=== PATIENT | male | born 1965 | race Caucasian/White ===

== ENCOUNTER 2020-09-14 10:44 | Emergency (ER) | payer MEDICAID, SELFPAY ==
--- NOTE | 2020-09-14 11:06 | ED.ABDPAIN ---
HPI - Abdominal Pain General Chief Complaint: Abdominal Pain Stated Complaint: abdominal pain Time Seen by Provider: 09/14/20 11:06 Source: patient Mode of arrival: ambulatory Limitations: no limitations History of Present Illness MD elicited complaint: abdominal pain Pertinent past history: gastritis and other (pancreatitis) Onset (ago): month(s) (few) Pain Consistency: constant Location: epigastric Severity: moderate Quality: aching and fullness Radiation: none Migration to: no migration Exacerbating factors: eating (states something gets stuck and he can't eat) Relieving factors: nothing Associated symptoms: other (weight loss) Related Data Previous Rx's Medication Instructions Recorded metoclopramide HCl [Reglan] 5 mg PO DAILY #30 tab 09/14/20 Allergies Allergy/AdvReac Type Severity Reaction Status Date / Time divalproex sodium Allergy Unknown UNKNOWN Unverified 07/25/20 15:12 [From Depakote] ibuprofen [From Motrin] Allergy Unknown RASH Unverified 07/25/20 15:12 latex [Latex] Allergy Unknown DIFFICULTY Unverified 07/25/20 15:12 BREATHING oxazepam [From Serax] Allergy Unknown UNKNOWN Unverified 07/25/20 15:12 penicillin V Allergy Unknown Verified 09/26/13 00:00 Penicillins Allergy Unknown RASH Unverified 07/25/20 15:12 zolpidem [From Ambien] Allergy Unknown UNKNOWN Unverified 07/25/20 15:12 acetaminophen [From TYLENOL] AdvReac Severe NAUSEA & Unverified 07/25/20 15:12 VOMITING mirtazapine [From Remeron] AdvReac Unknown GI UPSET Unverified 07/25/20 15:12 From PROZAC Allergy Unknown UNKNOWN Uncoded 07/25/20 15:12 Review of Systems Review of Systems Constitutional : pos Weight loss (unsure how much), No Fever, No Chills ENT/Mouth : No sore throat, No Rhinorrhea Eyes: No Swelling, No Redness Cardiovascular : No Chest Pain, No SOB, NoEdema Respiratory : No Cough, No Sputum, No Wheezing Gastrointestinal : Positive Nausea, no Vomiting, no Diarrhea, positive abdominal Pain, No Hematochezia, No Melena Genitourinary : No Dysuria, No Urinary Frequency, No Hematuria, No Urgency Musculoskeletal : No joint pain, No Myalgias, No Joint Swelling Skin : No Skin Lesions, No rash Neuro : No Weakness, No Numbness, No Dizziness, No Headache Psych : No Anxiety/Panic, No Depression Heme/Lymph: No Bruising, No Lymphadenopathy Endocrine : No Polyuria, No Polydipsia All other systems reviewed and are negative. Physical Exam Vital Signs: Vital Signs: Last Vital Signs Temp 98.5 F 09/14/20 11:09 Pulse 96 09/14/20 11:09 Resp 18 09/14/20 11:09 BP 168/87 H 09/14/20 11:09 Pulse Ox 99 09/14/20 11:16 Body Mass Index 22.0 Appearance: Alert. Oriented X3. No acute distress. Eyes: Pupils equal, round and reactive to light. ENT: Pharynx normal. Neck: Normal inspection. Neck supple. CVS: Normal heart rate and rhythm. Pulses normal. Respiratory: No respiratory distress. Breath sounds normal. Abdomen: Soft and nontender. Skin: Skin warm and dry. Normal skin color. Normal skin turgor. Extremities: No lower extremity edema. No calf ttp Neuro: Oriented X 3. No motor deficit. No sensory deficit. Course Course Course Narrative: patient refusing further lab draws or IV sticks, aware we want to get labs, CT scan, states he just wants medications and has endoscopy for Wednesday MDM - Abdominal Pain MDM Narrative Medical decision making narrative: 55 yo male with hx of gastritis, IDDM, pancreatitis, recovered from ETOH - reports upper abdominal pain, early satiety and reported weight loss, at this time will need labs, CT scan for mass, possible mass vs gastroparesis, IV reglan ordered, dispo per results and findings. Discharge Plan Discharge Clinical Impression: Nausea, Early satiety Patient Disposition: Home, Self-Care Instructions: Acute Nausea and Vomiting (ED) Additional Instructions: return to ED for any worsening symptoms or concerns you were offered labs, IV access, CT scan but declined due to difficult IV access, return if you change your mind Prescriptions: New metoclopramide HCl [Reglan] 5 mg tablet 5 mg PO DAILY Qty: 30 RF: 0 [facility]: [facility] [Primary Care Provider[facility] - 2 days PMF Past Medical History Attestation statement: The following information was validated with the patient. Source: old records reviewed Medical History Alcoholism Depressed Diabetes Gastritis GIB (gastrointestinal bleeding) Head injury HTN (hypertension) Pancreatitis Seizures Social History Social History Smoked in Last 30 Days: No Use of substances other than those prescribed or required for medical reasons: No Advance Directives: No Advance Directives Information Provided: No
[2020-09-14 11:09] VITALS: BP 168/87; PULSE 96; RESP 18; TEMP 36.9; BMI 22.0
[2020-09-14 11:16] VITALS: O2SAT 99
--- NOTE | 2020-09-14 12:01 | PC.NURSE ---
pt difficult stick. 2 rns tried x 2 and unsuccessful. MD offer to placed IJ but patient refused. plan is for patient to go home with PO meds and keep appointment for endoscopy wednesday. pt agreeable with that plan.
== END 2020-09-14 12:18 | disposition home or self-care (01) ==
PROVIDERS: Emergency Provider Emergency Medicine
DX: R10.9 Unspecified abdominal pain (principal); R11.0 Nausea; R68.81 Early satiety; I10 Essential (primary) hypertension; Z79.899 Other long term (current) drug therapy
CPT/HCPCS: 96361; 96374; 96375; 99284

== ENCOUNTER → 2020-09-19 08:51 | Outpatient (BNVA) | payer MEDICAID, SELFPAY | PROVIDERS: PCP Emergency Medicine; Visit Provider Physician Assistant | DX: R13.10 Dysphagia, unspecified (principal); R63.4 Abnormal weight loss; Z68.22 Body mass index [BMI] 22.0-22.9, adult | CPT/HCPCS: 99202 ==

== ENCOUNTER 2020-09-20 06:47 | Day surgery (SDC) | payer MEDICAID, SELFPAY ==
--- NOTE | 2020-09-19 13:31 | P.CONAN_ITS ---
Documented by User: Annita Neal 09/19/20 13:37 HPI - Anesthesia Eval Consult details Narrative: 55yo M for Upper Endoscopy PMFSH Past Medical History Medical History Alcoholism Depressed Diabetes Gastritis GIB (gastrointestinal bleeding) Head injury HTN (hypertension) Odynophagia Pancreatitis Seizures Family History Family History Father Diabetes Surgical History Surgical History History of esophagogastroduodenoscopy (EGD) Social History Social History Are you a primary pediatric care coordinator to a significant other at home: No Do you presently have visiting nurse or other home services: No Alcohol intake: current Alcohol intake frequency: former alcohol drinker Smoking Status: Never smoker Use of substances other than those prescribed or required for medical reasons: No Advance Directives: No Advance Directives Information Provided: No (n/a) Advance Directives on File: No Recently lost weight without trying: Yes Meds Allergies Allergy/AdvReac Type Severity Reaction Status Date / Time No Known Allergies Allergy Verified 09/20/20 07:19 Home Medications Medication Instructions Recorded Confirmed Type naltrexone microspheres 380 mg 380 mg IM Q4W 09/19/20 09/19/20 History intramuscular suspension,extended release Exam Exam Date and Time: September 19, 2020 1331 Pertinent Lab Results Pertinent Lab Results: Laboratory Tests 06/20/20 06/20/20 15:54 18:20 WBC 12.4 H Hgb 12.2 L Hct 37.3 L Sodium 136 Potassium 4.3 Chloride 97 BUN 16 Creatinine 1.03 Assessment and Plan Assessment Anesthesia Assessment: Chart Reviewed Documented by User: Rubi Beckham 09/20/20 07:55 [facility] Past Medical History Medical History Alcoholism Depressed Diabetes Gastritis GIB (gastrointestinal bleeding) Head injury HTN (hypertension) Odynophagia Pancreatitis Seizures Family History Family History Father Diabetes Surgical History Surgical History History of esophagogastroduodenoscopy (EGD) Social History Social History Are you a primary pediatric care coordinator to a significant other at home: No Do you presently have visiting nurse or other home services: No Alcohol intake: current Alcohol intake frequency: former alcohol drinker Smoking Status: Never smoker Use of substances other than those prescribed or required for medical reasons: No Advance Directives: No Advance Directives Information Provided: No (n/a) Advance Directives on File: No Recently lost weight without trying: Yes Meds Allergies Allergy/AdvReac Type Severity Reaction Status Date / Time No Known Allergies Allergy Verified 09/20/20 07:19 Home Medications Medication Instructions Recorded Confirmed Type naltrexone microspheres 380 mg 380 mg IM Q4W 09/19/20 09/19/20 History intramuscular suspension,extended release
[2020-09-20 07:20] VITALS: BMI 22.1
[2020-09-20 07:53] VITALS: BP 142/77; PULSE 77; RESP 16; TEMP 36.6; O2SAT 100
[2020-09-20] MEDS: Lactated Ringers 1,000 ML 100 ML IVCONT (08:14)
--- NOTE | 2020-09-20 09:28 | P.HPSUR_ITS ---
Pre-Procedural Eval Section B Chief Complaint: dysphagia Relevant Family History (Specify if Yes): No Relevant Social History: None Present Medications: see Short Stay Collaborative assessment Medical History: Significant History (HTN, seizures, DM) History of Previous Operations: No relevant previous surgery Allergies: Allergies Allergy/AdvReac Type Severity Reaction Status Date / Time No Known Allergies Allergy Verified 09/20/20 07:19 Review of Systems Sugical H&P ROS: Negative: Constitution, Cardiovascular, Respiratory, Neurological, Psychiatric, Hem-Onc, Allergic/Immunologic, Gastrointestinal, Genitourinary, Musculoskeletal, Integumentary, Endocrine and Eyes/Ears/Nose/Thro at Exam Surgical H&P Exam: Normal: HEENT, Normal: Heart, Normal: Lungs, Normal: Extremities, Normal: Abdomen, Normal: Skin and Normal: Neurological Plan Diagnosis/Plan: Unchanged Patient has been examined and remains a candidate for the planned procedure
--- NOTE | 2020-09-20 09:29 | PM.OP ---
Brief Operative Note Date of Service: 09/20/20 Pre-op diagnosis: dysphagia Post-op diagnosis: same Procedure: see op note Surgeon: Otoniel Muniz MD Anesthesia: MAC Estimated blood loss (mL): 10 Condition: stable Disposition: PACU
--- NOTE | 2020-09-20 09:30 | W.PM.OPN ---
Operative Note Operative Note Date of Service: 09/20/20 Narrative: Procedure Description: EGD FLEXIBLE TRANSORAL UPPER GASTROINTESTINAL ENDOSCOPY UPPER ENDOSCOPY Consent: Indications for the procedure and potential complications of bleeding, perforation, reaction to medications and missed diagnosis were discussed with the patient and informed consent was obtained. Instrument: Olympus GIF H 190 J mid size upper endoscope Monitoring: Vital signs and clinical assessment, continuous EKG monitoring, Pulse oximetry, Carbon Dioxide monitoring and blood pressure monitoring were done throughout the procedure. Procedure: The patient was placed in the left lateral decubitis position and pre-procedure medications were administered and a bite block was placed. The endoscope was inserted into the mouth and advanced under direct vision to the third part of duodenum. A careful inspection was made as the upper endoscope was withdrawn including a retroflexed examination of the proximal stomach; Findings and interventions are described below. Findings: Larynx:normal Esophagus: GE junction at 38 cm, diaphragm hiatus at 40 cm, consistent with 2 cm sliding hiatal hernia, there was a very tight circumferential stricture with effacement of the lower esophageal mucosa at about 36 cm. An ultra slim scope had to be used to bypass this area. A CRE balloon was guided to the area of stricture and dilated sequentiallly from 8-10 mm with some heme and small amount of blood noted. Random esophageal bx then taken Stomach: Patchy gastric erythema with ridged mucosa. Biopsies were obtained. Grade 2 flap valve on retroflexed examination of the cardia. Duodenum: Normal bulb and descending duodenum, Intervention: Biopsies as noted above, dilation Impression/Findings: probable benign peptic stricture vs from EoE gastritis hiatal hernia PLAN: Stay on pureed diet high dose PPI liquid carafate repeat dilation in 4-6 weeks await biopsies
[2020-09-20 09:33] VITALS: BP 106/56; PULSE 86; RESP 16; TEMP 36.1; O2SAT 99
--- NOTE | 2020-09-20 09:42 | HO.POSTANES ---
Post Anesthesia Evaluation Post Anesthesia Evaluation Vital Signs: Vital Signs Temp Pulse Resp BP Pulse Ox 09/20/20 07:53 98 F 77 16 142/77 H 100 Anesthesia: Monitored Mental Status: Awake Pain Control: Satisfactory Nausea/Vomiting: None Hydration: Adequate Anesthesia-Related Issues: No Anes. Related Issues
[2020-09-20 09:49] VITALS: BP 130/75; PULSE 88; RESP 14; TEMP 36.1; O2SAT 100
== END 2020-09-20 10:44 | disposition home or self-care (01) ==
PROVIDERS: Visit Provider Internal Medicine Gastroenterology
PROC: 0DJ08ZZ Inspection of Upper Intestinal Tract, Via Natural or Artificial Opening Endoscopic (ICD-10-PCS; CPT 43235; principal; 2020-09-20 08:30)
DX: K22.2 Esophageal obstruction (principal); K29.50 Unspecified chronic gastritis without bleeding; K44.9 Diaphragmatic hernia without obstruction or gangrene; I10 Essential (primary) hypertension; E11.9 Type 2 diabetes mellitus without complications; Z87.19 Personal history of other diseases of the digestive system; Z79.899 Other long term (current) drug therapy
CPT/HCPCS: 43249; 43239; 88305; 88342; C1726; C1769

== ENCOUNTER → 2020-10-09 08:25 | Outpatient (BNVA) | payer MEDICAID, SELFPAY | PROVIDERS: PCP Emergency Medicine; Visit Provider Physician Assistant | DX: Z76.89 Persons encountering health services in other specified circumstances (principal) ==

== ENCOUNTER 2020-11-08 10:47 | Inpatient (IN) | payer MEDICAID, SELFPAY ==
[2020-11-08 10:56] VITALS: BP 141/81; PULSE 100; RESP 16; TEMP 36.8; O2SAT 100; BMI 19.3
--- NOTE | 2020-11-08 11:03 | ED_ITS ---
HPI - Nausea/Vomiting/Diarrhea General Chief complaint: Nausea/Vomiting/Diarrhea <JEREL Conley - Last Filed: 11/08/20 18:39> Stated complaint: etoh <JEREL Conley - Last Filed: 11/08/20 18:39> Time Seen by Provider: 11/08/20 11:03 <JEREL Conley Last Filed: 11/08/20 18:39> History of Present Illness HPI Narrative: Patient was brought in intoxicated from the street by EMS, and complains that he has been vomiting intermittently for 3 days with nausea, he denies abdominal pain, he does say he has had some diarrhea, his last drink he thinks was several hours ago <JEREL Conley Last Filed: 11/08/20 18:39> Related Data Home medications: Home Medications Medication Instructions Recorded Confirmed naltrexone microspheres 380 mg 380 mg IM Q4W 09/19/20 09/19/20 intramuscular suspension,extended release insulin detemir U-100 100 unit/mL 30 unit SUBCUT BEDTIME 10/09/20 10/09/20 (3 mL) subcutaneous pen Previous Rx's Medication Instructions Recorded metoclopramide HCl [Reglan] 5 mg PO DAILY #30 tab 09/14/20 pantoprazole 40 mg tablet,delayed 40 mg PO BID 30 Days #60 tab 09/20/20 release sucralfate 100 mg/mL oral 10 ml PO BID #420 ml 10/17/20 suspension <JEREL Conley - Last Filed: 11/08/20 18:39> Allergies/Adverse reactions: Allergies Allergy/AdvReac Type Severity Reaction Status Date / Time No Known Allergies Allergy Verified 09/20/20 07:19 <JEREL Conley - Last Filed: 11/08/20 18:39> Review of Systems Review of Systems: Positive for nausea vomiting diarrhea and alcohol abuse Negative for fever chills chest pain shortness of breath abdominal pain, denies any burning with urination denies any injuries to his legs or arms <JEREL Conley Last Filed: 11/08/20 18:39> PMFSH Past Medical History Source: nursing notes reviewed <JEREL Conley Last Filed: 11/08/20 18:39> Medical History: Medical History Alcoholism Depressed Diabetes Esophageal stricture Gastritis GIB (gastrointestinal bleeding) Head injury HTN (hypertension) Odynophagia Pancreatitis Seizures <JEREL Conley - Last Filed: 11/08/20 18:39> Surgical History: Surgical History History of esophagogastroduodenoscopy (EGD) <JEREL Conley - Last Filed: 11/08/20 18:39> Family History Family History: Family History Father Diabetes <JEREL Conley - Last Filed: 11/08/20 18:39> Social History Social History: Social History (Updated 10/09/20 @ 09:54 by Sugey Veliz PA-C) Alcohol intake: current Alcohol intake frequency: 3 or more drinks per day Alcohol type: beer and hard liquor Smoking Status: Current some day smoker Use of substances other than those prescribed or required for medical reasons: No Advance Directives: No Advance Directives Information Provided: No Current occupational status: unemployed <JEREL Conley - Last Filed: 11/08/20 18:39> Physical Exam Vital Signs: Vital Signs: Last Vital Signs Temp 97.8 F 11/08/20 18:00 Pulse 116 H 11/08/20 20:13 Resp 15 11/08/20 18:00 BP 181/64 H 11/08/20 18:00 Pulse Ox 95 11/08/20 18:00 Body Mass Index 19.3 <JEREL Conley - Last Filed: 11/08/20 18:39> Vital Signs: Last Vital Signs Temp 97.8 F 11/08/20 18:00 Pulse 116 H 11/08/20 20:13 Resp 11/08/20 18:00 BP 181/64 H 11/08/20 18:00 Pulse Ox 95 11/08/20 18:00 Body Mass Index 19.3 <Zoe Polanco DO - Last Filed: 11/08/20 21:10> Patient is sleepy appearing but easily aroused and responds appropriately to questions Head is normocephalic atraumatic Neck is supple The chest was clear to auscultation bilaterally without rib tenderness or chest wall tenderness The heart rate and rhythm regular The abdomen was soft and nontender The extremities had no tenderness swelling or deformity neuro there was no obvious motor deficits, cranial nerves 2-12 intact as tested, extraocular motions were intact <JEREL Conley - Last Filed: 11/08/20 18:39> Course Course Course Narrative: Patient was observed for several hours but he refused IV placement and he refused labs, after several hours he started vomiting and was given several doses of antiemetic without improvement and then he consented to IV placement and labs which was done just prior to me leaving, so case was signed out to physician expanded duty dental assistant sidney to follow labs, re-evaluate and dispo the patient <JEREL Conley - Last Filed: 11/08/20 18:39> MDM - Nausea/Vomiting/Diarrhea Lab Data Result diagrams: : 11/08/20 18:28 11/08/20 18:28 <JEREL Conley - Last Filed: 11/08/20 18:39> Labs: Lab Results 11/08/20 11/08/20 11/08/20 Range/Units 11:01 11:28 18:28 WBC 21.5 H (4.8-10.8) X10*3/uL RBC 6.03 H (4.60-5.80) X10*6/uL Hgb 14.6 (14.0-18.0) g/dl Hct 45.9 (42-52) % MCV 76.1 L (80-98) fL MCH 24.2 L (27.0-33.0) pg MCHC 31.8 (31.0-36.0) g/dl RDW 16.6 H (11.0-16.0) % Plt Count 351 (160-400) X10*3/uL MPV 9.6 (9.4-12.4) fL Immature Gran % (Auto) 0.9 H (0.0-0.4) % Neut % (Auto) 85.8 H (45-73) % Lymph % (Auto) 7.2 L (20-40) % [place] % (Auto) 5.8 (2-11) % Eos % (Auto) 0.0 (0-4) % Baso % (Auto) 0.3 (0-2) % Lymph # (Auto) 1.6 (1.2-4.9) X10*3/uL [place] # (Auto) 1.3 H (0.1-1.2) X10*3/uL Eos # (Auto) 0.0 (0.0-0.4) X10*3/uL Baso # (Auto) 0.1 (0.0-0.2) X10*3/uL Abs Immat Gran (auto) 0.20 H (0.00-0.03) X10*3/uL Absolute Neuts (auto) 18.4 H (2.0-8.3) X10*3/uL Absolute Nucleated RBC 0.000 (0.0-0.012) X10*3/uL Nucleated RBC % (auto) 0.0 (0.0-0.2) /100WBC Sodium (135-145) mmol/L Potassium (3.3-5.1) mmol/l Chloride (96-108) mmol/L Carbon Dioxide (22-29) mmol/L Anion Gap (12-20) BUN (9-16) mg/dL Creatinine (0.5-1.4) mg/dL Estim Creat Clear Calc Estimated GFR POC Glucose 202 H (60-115) mg/dL Random Glucose (60-115) mg/dL Calcium (8.4-10.2) mg/dL Magnesium (1.6-2.6) mg/dL Total Bilirubin (0.0-1.0) mg/dL Direct Bilirubin (0.0-0.5) mg/dL AST (5-37) U/L ALT (0-40) U/L Alkaline Phosphatase (39-117) U/L Total Protein (6.5-8.0) g/dL Albumin (3.5-5.0) g/dL Lipase (8-78) U/L Ethyl Alcohol mg/dL Coronavirus (PCR) NEGATIVE (Negative) Influenza Type A (PCR) NEGATIVE (Negative) Influenza Type B (PCR) NEGATIVE (Negative) RSV RNA Qual (PCR) NEGATIVE (Negative) 11/08/20 11/08/20 Range/Units 18:28 18:28 WBC (4.8-10.8) X10*3/uL RBC (4.60-5.80) X10*6/uL Hgb (14.0-18.0) g/dl Hct (42-52) % MCV (80-98) fL MCH (27.0-33.0) pg MCHC (31.0-36.0) g/dl RDW (11.0-16.0) % Plt Count (160-400) X10*3/uL MPV (9.4-12.4) fL Immature Gran % (Auto) (0.0-0.4) % Neut % (Auto) (45-73) % Lymph % (Auto) (20-40) % [place] % (Auto) (2-11) % Eos % (Auto) (0-4) % Baso % (Auto) (0-2) % Lymph # (Auto) (1.2-4.9) X10*3/uL [place] # (Auto) (0.1-1.2) X10*3/uL Eos # (Auto) (0.0-0.4) X10*3/uL Baso # (Auto) (0.0-0.2) X10*3/uL Abs Immat Gran (auto) (0.00-0.03) X10*3/uL Absolute Neuts (auto) (2.0-8.3) X10*3/uL Absolute Nucleated RBC (0.0-0.012) X10*3/uL Nucleated RBC % (auto) (0.0-0.2) /100WBC Sodium 144 (135-145) mmol/L Potassium 4.0 (3.3-5.1) mmol/l Chloride 96 (96-108) mmol/L Carbon Dioxide 28 (22-29) mmol/L Anion Gap 24 H (12-20) BUN 27 H (9-16) mg/dL Creatinine 1.29 (0.5-1.4) mg/dL Estim Creat Clear Calc 49.8 Estimated GFR 58 POC Glucose (60-115) mg/dL Random Glucose 123 H (60-115) mg/dL Calcium 9.9 (8.4-10.2) mg/dL Magnesium 1.7 (1.6-2.6) mg/dL Total Bilirubin 0.4 (0.0-1.0) mg/dL Direct Bilirubin 0.3 (0.0-0.5) mg/dL AST 30 (5-37) U/L ALT 20 (0-40) U/L Alkaline Phosphatase 138 H (39-117) U/L Total Protein 9.7 H (6.5-8.0) g/dL Albumin 4.5 (3.5-5.0) g/dL Lipase 5 L (8-78) U/L Ethyl Alcohol 161 mg/dL Coronavirus (PCR) (Negative) Influenza Type A (PCR) (Negative) Influenza Type B (PCR) (Negative) RSV RNA Qual (PCR) (Negative) <JEREL Conley - Last Filed: 11/08/20 18:39> Lab Results 11/08/20 11/08/20 11/08/20 Range/Units 11:01 11:28 18:28 WBC 21.5 H (4.8-10.8) X10*3/uL RBC 6.03 H (4.60-5.80) X10*6/uL Hgb 14.6 (14.0-18.0) g/dl Hct 45.9 (42-52) % MCV 76.1 L (80-98) fL MCH 24.2 L (27.0-33.0) pg MCHC 31.8 (31.0-36.0) g/dl RDW 16.6 H (11.0-16.0) % Plt Count 351 (160-400) X10*3/uL MPV 9.6 (9.4-12.4) fL Immature Gran % (Auto) 0.9 H (0.0-0.4) % Neut % (Auto) 85.8 H (45-73) % Lymph % (Auto) 7.2 L (20-40) % [place] % (Auto) 5.8 (2-11) % Eos % (Auto) 0.0 (0-4) % Baso % (Auto) 0.3 (0-2) % Lymph # (Auto) 1.6 (1.2-4.9) X10*3/uL [place] # (Auto) 1.3 H (0.1-1.2) X10*3/uL Eos # (Auto) 0.0 (0.0-0.4) X10*3/uL Baso # (Auto) 0.1 (0.0-0.2) X10*3/uL Abs Immat Gran (auto) 0.20 H (0.00-0.03) X10*3/uL Absolute Neuts (auto) 18.4 H (2.0-8.3) X10*3/uL Absolute Nucleated RBC 0.000 (0.0-0.012) X10*3/uL Nucleated RBC % (auto) 0.0 (0.0-0.2) /100WBC Sodium (135-145) mmol/L Potassium (3.3-5.1) mmol/l Chloride (96-108) mmol/L Carbon Dioxide (22-29) mmol/L Anion Gap (12-20) BUN (9-16) mg/dL Creatinine (0.5-1.4) mg/dL Estim Creat Clear Calc Estimated GFR POC Glucose 202 H (60-115) mg/dL Random Glucose (60-115) mg/dL Calcium (8.4-10.2) mg/dL Magnesium (1.6-2.6) mg/dL Total Bilirubin (0.0-1.0) mg/dL Direct Bilirubin (0.0-0.5) mg/dL AST (5-37) U/L ALT (0-40) U/L Alkaline Phosphatase (39-117) U/L Total Protein (6.5-8.0) g/dL Albumin (3.5-5.0) g/dL Lipase (8-78) U/L Ethyl Alcohol mg/dL Coronavirus (PCR) NEGATIVE (Negative) Influenza Type A (PCR) NEGATIVE (Negative) Influenza Type B (PCR) NEGATIVE (Negative) RSV RNA Qual (PCR) NEGATIVE (Negative) 11/08/20 11/08/20 Range/Units 18:28 18:28 WBC (4.8-10.8) X10*3/uL RBC (4.60-5.80) X10*6/uL Hgb (14.0-18.0) g/dl Hct (42-52) % MCV (80-98) fL MCH (27.0-33.0) pg MCHC (31.0-36.0) g/dl RDW (11.0-16.0) % Plt Count (160-400) X10*3/uL MPV (9.4-12.4) fL Immature Gran % (Auto) (0.0-0.4) % Neut % (Auto) (45-73) % Lymph % (Auto) (20-40) % [place] % (Auto) (2-11) % Eos % (Auto) (0-4) % Baso % (Auto) (0-2) % Lymph # (Auto) (1.2-4.9) X10*3/uL [place] # (Auto) (0.1-1.2) X10*3/uL Eos # (Auto) (0.0-0.4) X10*3/uL Baso # (Auto) (0.0-0.2) X10*3/uL Abs Immat Gran (auto) (0.00-0.03) X10*3/uL Absolute Neuts (auto) (2.0-8.3) X10*3/uL Absolute Nucleated RBC (0.0-0.012) X10*3/uL Nucleated RBC % (auto) (0.0-0.2) /100WBC Sodium 144 (135-145) mmol/L Potassium 4.0 (3.3-5.1) mmol/l Chloride 96 (96-108) mmol/L Carbon Dioxide 28 (22-29) mmol/L Anion Gap 24 H (12-20) BUN 27 H (9-16) mg/dL Creatinine 1.29 (0.5-1.4) mg/dL Estim Creat Clear Calc 49.8 Estimated GFR 58 POC Glucose (60-115) mg/dL Random Glucose 123 H (60-115) mg/dL Calcium 9.9 (8.4-10.2) mg/dL Magnesium 1.7 (1.6-2.6) mg/dL Total Bilirubin 0.4 (0.0-1.0) mg/dL Direct Bilirubin 0.3 (0.0-0.5) mg/dL AST 30 (5-37) U/L ALT 20 (0-40) U/L Alkaline Phosphatase 138 H (39-117) U/L Total Protein 9.7 H (6.5-8.0) g/dL Albumin 4.5 (3.5-5.0) g/dL Lipase 5 L (8-78) U/L Ethyl Alcohol 161 mg/dL Coronavirus (PCR) (Negative) Influenza Type A (PCR) (Negative) Influenza Type B (PCR) (Negative) RSV RNA Qual (PCR) (Negative) <Zoe Polanco DO - Last Filed: 11/08/20 21:10> Discharge Plan Discharge Prescriptions: No Action pantoprazole 40 mg tablet,delayed release (DR/EC) 40 mg PO BID 30 Days Qty: 60 RF: 3 sucralfate [Carafate] 100 mg/mL suspension 10 ml PO BID Qty: 420 RF: 0 metoclopramide HCl [Reglan] 5 mg tablet 5 mg PO DAILY Qty: 30 RF: 0 Vivitrol 380 mg suspension,extended rel recon 380 mg IM Q4W RF: 0 Levemir FlexTouch U-100 Insuln 100 unit/mL (3 mL) insulin pen 30 unit subcut BEDTIME RF: 0 <JEREL Conley - Last Filed: 11/08/20 18:39>
[2020-11-08 11:04] LABS: Glucose, Whole Blood 202 mg/dL (60-115)
--- NOTE | 2020-11-08 11:34 | PC.NURSE ---
pt refused blood work, covid test sent.
[2020-11-08 12:13] LABS: Influenza A PCR NEGATIVE (Negative); Influenza B PCR NEGATIVE (Negative); Resp Syncy Virus RNA Qual PCR NEGATIVE (Negative); SARS COV2 PCR INHOUSE NEGATIVE (Negative)
--- NOTE | 2020-11-08 13:29 | XR_ITS ---
EXAMINATION: XR CHEST CLINICAL INFORMATION: Cough. COMPARISON: None TECHNIQUE: Frontal view of the chest was obtained. FINDINGS: The lungs are well-expanded and clear. Heart size and pulmonary vascularity is normal. There is mild spondylosis dorsal spine. No lytic process. XR/XR chest 1V IMPRESSION: Unremarkable chest examination.
--- NOTE | 2020-11-08 15:13 | PC.NURSE ---
pt feeling nauseous, medicated per emar
[2020-11-08] MEDS: Prochlorperazine Edisylate 10 MG/2 ML VIAL IM (16:07)
--- NOTE | 2020-11-08 16:08 | PC.NURSE ---
pt still feeling nauseous, vomitting. provider at bedside. medicated further per emar.
[2020-11-08 18:00] VITALS: BP 181/64; PULSE 101; RESP 15; TEMP 36.6; O2SAT 95
--- NOTE | 2020-11-08 18:20 | PC.NURSE ---
pt continues to feel nauseous, provider aware. pt now agreeable to blood labs. rn at bedside to place ultrasound guided iv due to very difficult pt stick.
[2020-11-08 18:33] LABS: MANUAL DIFF FLAG NO
[2020-11-08 18:39] LABS: Basophils Absolute Auto 0.1 X10*3/uL (0.0-0.2); Basophils Percent Auto 0.3 % (0-2); Hematocrit 45.9 % (42-52); Hemoglobin 14.6 g/dl (14.0-18.0); Imm Gran Pct Auto 0.9 % (0.0-0.4); Lymphocytes Absolute Auto 1.6 X10*3/uL (1.2-4.9); Lymphocytes Percent Auto 7.2 % (20-40); Mean Corpuscular HGB Conc 31.8 g/dl (31.0-36.0); Mean Corpuscular Hemoglobin 24.2 pg (27.0-33.0); Mean Corpuscular Volume 76.1 fL (80-98); Mean Platelet Volume 9.6 fL (9.4-12.4); Monocytes Absolute Auto 1.3 X10*3/uL (0.1-1.2); Monocytes Percent Auto 5.8 % (2-11); Neutrophils Absolute Auto 18.4 X10*3/uL (2.0-8.3); Neutrophils Percent Auto 85.8 % (45-73); Platelet Count 351 X10*3/uL (160-400); Red Blood Count 6.03 X10*6/uL (4.60-5.80); Red Cell Distribution Width 16.6 % (11.0-16.0); White Blood Count 21.5 X10*3/uL (4.8-10.8)
[2020-11-08] MEDS: Metoclopramide HCl 10 MG/2 ML VIAL IVPUSH (18:47)
[2020-11-08] MEDS: diphenhydrAMINE HCL 50 MG/ML VIAL 25 MG IVPUSH (18:47)
[2020-11-08] MEDS: 0.9 % Sodium Chloride 1,000 ML 999 ML IVCONT (18:48)
[2020-11-08 18:58] LABS: Ethanol 161 mg/dL
[2020-11-08 19:01] LABS: Alanine Aminotransferase 20 U/L (0-40); Albumin Level 4.5 g/dL (3.5-5.0); Alkaline Phosphatase 138 U/L (39-117); Anion Gap 24 (12-20); Aspartate Amino Transferase 30 U/L (5-37); Bilirubin Direct 0.3 mg/dL (0.0-0.5); Bilirubin Total 0.4 mg/dL (0.0-1.0); Blood Urea Nitrogen 27 mg/dL (9-16); Calcium 9.9 mg/dL (8.4-10.2); Carbon Dioxide 28 mmol/L (22-29); Chloride 96 mmol/L (96-108); Creatinine Clr Calc Pharmacy 49.8; Estimated Glomerular Filt Rate 58; Glucose Random 123 mg/dL (60-115); Lipase 5 U/L (8-78); Sodium 144 mmol/L (135-145); Total Protein 9.7 g/dL (6.5-8.0)
--- NOTE | 2020-11-08 19:16 | ECG_ITS ---
Test Reason : QTC CHECK Blood Pressure : / mmHG Vent. Rate : 102 BPM Atrial Rate : 102 BPM P-R Int : 126 ms QRS Dur : 090 ms QT Int : 352 ms P-R-T Axes : 078 081 059 degrees QTc Int : 458 ms Sinus tachycardia Otherwise normal ECG When compared with ECG of 06-JUN-2020 13:38, No significant change was found Referred By: Jennifer Thomas Electronically Signed By:JUANITA HELM
--- NOTE | 2020-11-08 19:23 | PC.NURSE ---
pt currently vomiting at this time. Mirna SUPPORT DIRECTOR aware at this time. Plan for EKG and medicate.
[2020-11-08 19:48] LABS: Magnesium 1.7 mg/dL (1.6-2.6)
--- NOTE | 2020-11-08 19:53 | PC.NURSE ---
EKG okayed by rene bus driver/monitor to give medications. pt in chandler bed placed on portable monitor for magnesium administration. No new orders WBC elevated but pr rene bus driver/monitor no blood cultures x 2
[2020-11-08] MEDS: LORazepam 2 MG/ML VIAL 1 MG IVPUSH ×2 (19:56→21:26)
[2020-11-08] MEDS: Haloperidol Lactate 5 MG/ML VIAL 2 MG IVPUSH (19:56)
[2020-11-08] MEDS: Magnesium Sulfate/H2O 2 GM/50 ML PIGGYBACK IV (19:56)
[2020-11-08] MEDS: 0.9 % Sodium Chloride 1,000 ML 999 ML IV (19:57)
[2020-11-08 20:13] VITALS: PULSE 116
--- NOTE | 2020-11-08 21:07 | PC.NURSE ---
pt requested water, given. if can tolerate d/c home
[2020-11-08 21:17] VITALS: BP 170/72; PULSE 113; RESP 18; TEMP 37.3; O2SAT 99
--- NOTE | 2020-11-08 21:17 | PC.NURSE ---
plan for admission at this time
[2020-11-08] MEDS: PHENobarbitaL sodium 130 MG/ML VIAL 255 MG IM (21:32)
--- NOTE | 2020-11-08 21:35 | PC.NURSE ---
pt medicated per emar with first phenobarb shot, 1mg iv ativan and recieved a covid now swab. pending admission
[2020-11-08 21:54] LABS: COVID-19 Test Negative (Negative); IDNOW Serial# 9DD0AD1C
--- NOTE | 2020-11-08 22:06 | PC.NURSE ---
hospitalist at bedside, pt very drowsy from medications given but responsive to verbal stimuli.
[2020-11-08 22:39] VITALS: BP 120/69; PULSE 117; RESP 18; O2SAT 98
[2020-11-09] VITALS (7 sets, daily range): BP systolic 116–175; BP diastolic 62–94; PULSE 99–111; RESP 16–18; TEMP 36.4–37.4; O2SAT 97–100
--- NOTE | 2020-11-09 01:45 | PC.NURSE ---
report given to floor at this time. pt sleeping in room, wakes to verbal stimuli, respirations easy, n/l.
[2020-11-09] MEDS: PHENobarbitaL sodium 130 MG/ML VIAL 191 MG IM ×2 (02:24→05:26)
[2020-11-09] MEDS: Lactated Ringers 1,000 ML 100 ML IVCONT ×3 (03:46→20:22)
[2020-11-09] MEDS: 0.9 % Sodium Chloride Flush 3 ML SYRINGE IVFLUSH ×2 (03:46→08:28)
[2020-11-09 05:14] LABS: Basophils Percent Auto 0.2 % (0-2); Hematocrit 38.2 % (42-52); Hemoglobin 11.9 g/dl (14.0-18.0); Imm Gran Abs Auto 0.08 X10*3/uL (0.00-0.03); Imm Gran Pct Auto 0.4 % (0.0-0.4); Lymphocytes Absolute Auto 1.7 X10*3/uL (1.2-4.9); Lymphocytes Percent Auto 9.4 % (20-40); Mean Corpuscular HGB Conc 31.2 g/dl (31.0-36.0); Mean Corpuscular Hemoglobin 23.8 pg (27.0-33.0); Mean Corpuscular Volume 76.6 fL (80-98); Mean Platelet Volume 10.3 fL (9.4-12.4); Monocytes Absolute Auto 1.8 X10*3/uL (0.1-1.2); Monocytes Percent Auto 9.5 % (2-11); Neutrophils Absolute Auto 14.8 X10*3/uL (2.0-8.3); Neutrophils Percent Auto 80.5 % (45-73); Platelet Count 277 X10*3/uL (160-400); Red Blood Count 4.99 X10*6/uL (4.60-5.80); SCAN SMEAR FLAG 1; White Blood Count 18.4 X10*3/uL (4.8-10.8)
[2020-11-09 05:23] LABS: MANUAL DIFF FLAG SCAN
[2020-11-09] MEDS: Enoxaparin Sodium 40 MG/0.4 ML SYRINGE SUBCUT (05:25)
--- NOTE | 2020-11-09 05:35 | P.HPHOSP_ITS ---
History of Present Illness Date of Service: 11/08/20 Chief Complaint: Intractable nausea vomiting 55-year-old male with past medical history of alcohol abuse as well as gastritis and gastroparesis among other many things, who presents to the hospital with nausea and vomiting for the past 3 days. Patient is somnolent and very difficult to arouse after receiving Haldol for the intractable nausea and vomiting and therefore history is obtained mostly from EMR as well as ED physician. It appears the patient has been been drinking and has been having nausea and vomiting for 3 days. He received multiple rounds of antiemetics, Haldol, Ativan, but continued to have nausea and vomiting in the ED and therefore admitted for intractable nausea and vomiting Unable to obtain complete review of system On arrival to the ED hemodynamically stable with a temp of 98.3? heart rate of 100, respiratory rate of 16, blood pressure 141/81, satting 100% on room air. Labs are significant for 21.5, hemoglobin of 14.6, hematocrit 45.9, 144, potassium 4.0, BUN of 27, creatinine of 1.29, glucose of 123, lipase of 5, negative COVID. Chest x-ray negative, Past medical history is obtained from chart as patient too somnolent to give any history PAST MEDICAL HISTORY: 1. Alcohol dependence. 2. Hypertension. 3. Type 1 diabetes. 4. Hepatitis C. 5. History of multiple history of admission for GI bleed. 6. History of esophagitis/erosive gastritis. 7. Depression. 8. History of subdural hematoma. 9. Pancreatitis FAMILY HISTORY: Significant for alcoholism in his mother. SOCIAL HISTORY: The patient has a history of alcohol withdrawal seizures, ongoing alcohol abuse, but is unable to quantify the amount of alcohol that he drinks. Review of Systems Review of Systems: Yes Unobtainable due to mental condition and Unobtainable due to mental status [facility] Medical History Alcoholism Depressed Diabetes Esophageal stricture Gastritis GIB (gastrointestinal bleeding) Head injury HTN (hypertension) Odynophagia Pancreatitis Seizures Family History Father Diabetes Surgical History History of esophagogastroduodenoscopy (EGD) Social History (Updated 10/09/20 @ 09:54 by Sugey Veliz PA-C) Alcohol intake: current Alcohol intake frequency: 3 or more drinks per day Alcohol type: beer and hard liquor Smoking Status: Current some day smoker Use of substances other than those prescribed or required for medical reasons: No Currently Displaying Signs/Symptoms of Drug Intoxication Withdrawal: No Advance Directives: No Advance Directives Information Provided: No Do you have thoughts of harming others: None Do you have a plan to hurt others: No Plan Current occupational status: unemployed Meds Allergies Allergy/AdvReac Type Severity Reaction Status Date / Time No Known Allergies Allergy Verified 09/20/20 07:19 Home Medications Medication Instructions Recorded Confirmed Type naltrexone microspheres 380 mg 380 mg IM Q4W 09/19/20 11/09/20 History intramuscular suspension,extended release insulin detemir U-100 100 unit/mL 30 unit SUBCUT BEDTIME 10/09/20 11/09/20 History (3 mL) subcutaneous pen Physical Exam Vital Signs and Narrative: Vital Signs: Last Vital Signs Temp 98.3 F 11/09/20 03:07 Pulse 107 H 11/09/20 03:07 Resp 16 11/09/20 02:23 BP 147/62 H 11/09/20 03:07 Pulse Ox 97 11/09/20 03:07 Body Mass Index 19.3 Const: Other: Somnolent, difficult to arouse, wakes up but cannot stay awake Eyes: General: appearance normal, both eyes and all related structures Resp: Effort & Inspection: normal respiratory effort and able to speak in complete sentences Cardio: Rate: regular rate Rhythm: regular rhythm GI: Palpation (GI): Soft to palpation Auscultation: normal bowel sounds Skin: General skin exam: no rashes or lesions noted Neuro: Cognition (Neuro): normal cognition Extrem: General: Yes normal to inspection and Yes no pedal edema Results Labs CBC and Chem 7: 11/08/20 18:28 11/08/20 18:28 Labs: Laboratory Results - last 24 hr 11/08/20 11/08/20 11/08/20 11:01 11:28 18:28 MCV 76.1 L MCH 24.2 L MCHC 31.8 RDW 16.6 H Plt Count 351 MPV 9.6 Immature Gran % (Auto) 0.9 H Neut % (Auto) 85.8 H Lymph % (Auto) 7.2 L [place] % (Auto) 5.8 Eos % (Auto) 0.0 Baso % (Auto) 0.3 Lymph # (Auto) 1.6 [place] # (Auto) 1.3 H Eos # (Auto) 0.0 Baso # (Auto) 0.1 Abs Immat Gran (auto) 0.20 H Absolute Neuts (auto) 18.4 H Absolute Nucleated RBC 0.000 Nucleated RBC % (auto) 0.0 Anion Gap Estim Creat Clear Calc Estimated GFR POC Glucose 202 H Random Glucose Calcium Magnesium Total Bilirubin Direct Bilirubin AST ALT Alkaline Phosphatase Total Protein Albumin Lipase Ethyl Alcohol Coronavirus (PCR) NEGATIVE COVID-19 ([facility]) COVID-19 Clin Com Influenza Type A (PCR) NEGATIVE Influenza Type B (PCR) NEGATIVE RSV RNA Qual (PCR) NEGATIVE 11/08/20 11/08/20 11/08/20 18:28 18:28 21:33 MCV MCH MCHC RDW Plt Count MPV Immature Gran % (Auto) Neut % (Auto) Lymph % (Auto) [place] % (Auto) Eos % (Auto) Baso % (Auto) Lymph # (Auto) [place] # (Auto) Eos # (Auto) Baso # (Auto) Abs Immat Gran (auto) Absolute Neuts (auto) Absolute Nucleated RBC Nucleated RBC % (auto) Anion Gap 24 H Estim Creat Clear Calc 49.8 Estimated GFR 58 POC Glucose Random Glucose 123 H Calcium 9.9 Magnesium 1.7 Total Bilirubin 0.4 Direct Bilirubin 0.3 AST 30 ALT 20 Alkaline Phosphatase 138 H Total Protein 9.7 H Albumin 4.5 Lipase 5 L Ethyl Alcohol 161 Coronavirus (PCR) COVID-19 ([facility]) Negative COVID-19 Clin Com See Note Influenza Type A (PCR) Influenza Type B (PCR) RSV RNA Qual (PCR) Imaging Radiologist's Impressions: Impressions Chest X-Ray 11/08/20 13:29 IMPRESSION: Unremarkable chest examination. Assessment and Plan (1) Intractable vomiting: Status: Acute (2) Alcohol abuse: Status: Acute (3) Leukocytosis: Status: Acute (4) Diabetes: Status: Acute (5) HTN (hypertension): Status: Inactive (6) RONN (acute kidney injury): Status: Acute This is a 55-year-old male past medical history of alcohol abuse who presents to the hospital with intractable nausea and vomiting # intractable nausea and vomiting - most likely secondary to history of gastritis as well as gastroparesis, patient binge drink prior to come to the ED Plan: - antiemetics p.r.n. - IV fluids - Supportive measures # alcohol abuse with potential for withdrawal - started on phenobarb in the ED will continue - start him on thiamine and folic acid - monitor for worsening withdrawal symptoms # leukocytosis - no apparent source, chest x-ray negative, has no urinary symptoms that was reported on arrival Plan: - will obtain a UA - follow CBC # RONN - most likely prerenal due to dehydration - will start him on IV fluids - follow BMP # diabetes mellitus - low-dose sliding scale insulin, continue home insulin, hold oral hypoglycemics\ - diabetic diet, POC q.i.d. a.c. DVT prophylaxis: Lovenox
[2020-11-09 05:59] LABS: SLIDE REVIEW VERIFIED
[2020-11-09 06:13] LABS: Anion Gap 25 (12-20); Blood Urea Nitrogen 35 mg/dL (9-16); Calcium 8.5 mg/dL (8.4-10.2); Carbon Dioxide 17 mmol/L (22-29); Chloride 103 mmol/L (96-108); Estimated Glomerular Filt Rate > 60; Glucose Random 137 mg/dL (60-115); Potassium 5.2 mmol/l (3.3-5.1); Sodium 140 mmol/L (135-145)
[2020-11-09 07:56] LABS: Glucose, Whole Blood 220 mg/dL (60-115)
[2020-11-09] MEDS: PHENobarbitaL 15 MG TABLET 45 MG PO ×2 (08:28→20:21)
[2020-11-09] MEDS: Folic Acid 1 MG TABLET PO (08:28)
[2020-11-09] MEDS: Thiamine HCL 200 MG/2 ML VIAL 100 MG IVPUSH (08:28)
[2020-11-09] MEDS: Insulin Lispro 100 UNIT/ML 3 ML VIAL SUBCUT ×3 (08:29→20:21)
--- NOTE | 2020-11-09 10:18 | HO.PM.IMPN ---
Subjective Subjective Date of Service: 11/10/20 Interval History: Seen in f/u for alcohol withdrawal with n/v. Seems better this morning, no vomiting Review of Systems no fever nausea some confusion/tremors Physical Exam Vital Signs: Vital Signs: Last Vital Signs Temp 97.7 F 11/09/20 07:36 Pulse 99 11/09/20 07:36 Resp 18 11/09/20 07:36 BP 171/84 H 11/09/20 07:36 Pulse Ox 100 11/09/20 07:36 Body Mass Index 19.3 General: AO X 3, no acute distress Resp: CTA bilateral CVS: S1,S2,RRR GI: +BS, NT, no distention Skin: No rash Neuro: motor grossly intact Psych: appropriate affect Objective Data Current Medications Generic Name Dose Route Start Last Admin Trade Name Freq PRN Reason Stop Dose Admin Acetaminophen 650 mg 11/09/20 03:03 Acetaminophen 325 Mg Tablet PO Q6H PRN Pain, Mild (Pain Scale 1-3) Docusate Sodium 100 mg 11/09/20 03:03 Docusate Sodium 100 Mg Capsule PO DAILY PRN Constipation Enoxaparin Sodium 40 mg 11/09/20 06:00 11/09/20 05:25 Enoxaparin Sodium 40 Mg/0.4 Ml Syringe SUBCUT 40 mg Q24H GOSIA Administration Folic Acid 1 mg 11/09/20 09:00 11/09/20 08:28 Folic Acid 1 Mg Tablet PO 1 mg DAILY GOSIA Administration Lactated Ringer's 1,000 mls @ 100 mls/hr 11/09/20 03:03 11/09/20 03:46 Lr IVCONT 100 mls/hr .Q10H GOSIA Administration Insulin Human Lispro 0 unit 11/09/20 07:30 11/09/20 08:29 Insulin Lispro 100 Unit/Ml 3 Ml Vial SUBCUT 4 unit QIDACHS GOSIA Administration Protocol Medication 1 each 11/09/20 09:00 No Benzodiazepines MISCELLANE DAILY GOSIA Ondansetron HCl 4 mg 11/09/20 03:03 Ondansetron Hcl 4 Mg/2 Ml Vial IVPUSH Q8H PRN Nausea and Vomiting Pharmacy Consult 1 each 11/08/20 21:15 Consult Rx Perform Med Rec MISCELLANE ONCE PRN Consult order Phenobarbital 45 mg 11/09/20 09:00 11/09/20 08:28 Phenobarbital 15 Mg Tablet PO 11/10/20 21:01 45 mg BID GOSIA Administration Phenobarbital 30 mg 11/11/20 09:00 Phenobarbital 30 Mg Tablet PO 11/12/20 21:01 BID GOSIA Phenobarbital 15 mg 11/13/20 09:00 Phenobarbital 15 Mg Tablet PO 11/14/20 09:01 DAILY GOSIA Sodium Chloride 3 ml 11/09/20 03:03 11/09/20 08:28 0.9 % Sodium Chloride Flush 3 Ml Syringe IVFLUSH 3 ml QSHIFT GOSIA Administration Thiamine HCl 100 mg 11/09/20 09:00 11/09/20 08:28 Thiamine Hcl 200 Mg/2 Ml Vial IVPUSH 100 mg DAILY GOSIA Administration Labs CBC & Chem 7: 11/09/20 04:30 11/09/20 04:30 Assessment and Plan (1) Intractable vomiting: Status: Acute (2) Alcohol abuse: Status: Acute (3) Leukocytosis: Status: Acute (4) Diabetes: Status: Acute (5) HTN (hypertension): Status: Inactive (6) RONN (acute kidney injury): Status: Acute Assessment and Plan: 55-year-old male past medical history of alcohol abuse , dm, htn who presented to the hospital with intractable nausea and vomiting # intractable nausea and vomiting--suspected d/ alcoholic gastritis--seem better - antiemetics p.r.n. - IV fluids - Supportive measures -IV Pepcid # alcohol abuse with potential for withdrawal - started on phenobarb in the ED will continue - thiamine and folic acid replacement - monitor for worsening withdrawal symptoms # leukocytosis--likely reactive, slightly better. -CXR is better -UA is pending. # RONN--Likely from dehydration. Resolved. # diabetes mellitus--He is not compliant with meds - low-dose sliding scale insulin, continue home insulin, hold oral hypoglycemics\ - diabetic diet, POC q.i.d. a.c. DVT prophylaxis: Lovenox
[2020-11-09 10:37] LABS: Glucose Urine UA 100 MG/DL (NEG); Leukocyte Esterase Urine NEG (NEG); Nitrite Urine NEG (NEG); Specific Gravity - Urine >= 1.030 (1.005-1.025); Urine Blood NEG (NEG); Urine Ketones 15 MG/DL (NEG); Urine Protein 2+ MG/DL (NEG-TRACE)
[2020-11-09 10:38] LABS: Appearance Urine CLEAR; Color Urine YELLOW
[2020-11-09 10:45] LABS: Mucus Urine TRACE /LPF; RBC Urine 0-2 /HPF (0); Squamous Epithelial Cell Urine 1+ /LPF; WBC Urine 0-2 /HPF (0-4)
[2020-11-09 11:41] LABS: Glucose, Whole Blood 289 mg/dL (60-115)
[2020-11-09 14:36] LABS: Amphetamine Screen Urine Not Detected (Not Detect); Barbiturates, Urine POSITIVE (Not Detect); Benzodiazepines Screen Urine Not Detected (Not Detect); Cannabinoid Screen Urine Not Detected (Not Detect); Cocaine Screen Urine Not Detected (Not Detect); Opiate Screen Urine Not Detected (Not Detect); Phencyclidine Screen Urine Not Detected (Not Detect)
--- NOTE | 2020-11-09 14:44 | MHC.CM.PN ---
NURSE CARE MANGER NOTE ELECTRONIC MEDICAL RECORD REVIEWED THIS AND LAST ADMISSION PATIENT WILL RESPOND TO VERBAL STIMULI HIS NAME BUT THEN QUICKLY FALLS BACK TO SLEEP THIS ASSESSMENT IS UNCOMPLETED INFORMATION IN GATHERED FROM THIS ADMISSION DOCUMENTATION AND LAST ADMISSION PER DOCUMENTATION PATIENT HAS A HISTORY OF;( ETOH ABUSE DRINKING DAILY, ALONG WITH ETOH SEIZURES , SUBDURAL HEMATOMA,DEPRESSION, DIABETIC GASTRO INTESTINAL BLEED HEPATITIS C ,HYPERTENSION ACUTE KIDNEY INJURY ETOH GASTRITIS) [employer] SOFTWARE DEVELOPER TO CONTINUE TO FOLLOW PATIENT AND GATHER MORE INFORMATION 11/10/20. DISCHARGE KEVIN TO BE FURTHER DETERMINED 1. CONSULT WITH CARES TEAM D/C PER THERE RECOMMENDATIONS PCP-AT THE [facility], [facility] HAS MEDICAID PCC AND USES THE [facility]
[2020-11-09 17:16] LABS: Glucose, Whole Blood 146 mg/dL (60-115)
[2020-11-09 20:15] LABS: Glucose, Whole Blood 201 mg/dL (60-115)
[2020-11-10] VITALS: BP 153/83; PULSE 104; RESP 18; TEMP 37.2; O2SAT 98
[2020-11-10 03:47] VITALS: BP 144/82; PULSE 107; RESP 18; TEMP 36.6; O2SAT 96
[2020-11-10] MEDS: Lactated Ringers 1,000 ML 100 ML IVCONT (05:17)
[2020-11-10] MEDS: Enoxaparin Sodium 40 MG/0.4 ML SYRINGE SUBCUT (05:17)
[2020-11-10 07:37] VITALS: BP 159/87; PULSE 101; RESP 18; TEMP 37; O2SAT 98
[2020-11-10 07:52] LABS: Glucose, Whole Blood 218 mg/dL (60-115)
--- NOTE | 2020-11-10 08:19 | PC.NURSE ---
Patient wishes to sign out AMA, Dr. Mata made aware, in to see patient and discuss need for further treatment. Patient still wishes to sign out AMA. AMA paperwork signed.
--- NOTE | 2020-11-10 10:07 | P.DS_ITS ---
DS: Providers Provider Date of admission: 11/08/20 22:58 Primary care physician: [facility] Consults: 11/09/20 09:34 Consult to Care Team Routine Comment: Reason for consultation: ETOH HX WITH SEIZURES PLEASE CHECK WITH NURSING SOME SOMULENCE DS: Diagnosis Discharge Diagnosis (1) Intractable vomiting: Status: Acute (2) Alcohol abuse: Status: Acute (3) Leukocytosis: Status: Acute (4) Diabetes: Status: Acute (5) HTN (hypertension): Status: Inactive (6) RONN (acute kidney injury): Status: Acute DS: Medications Discharge Medications Home Medications: Home Medications Medication Instructions Recorded Confirmed naltrexone microspheres 380 mg 380 mg IM Q4W 09/19/20 11/09/20 intramuscular suspension,extended release insulin detemir U-100 100 unit/mL 30 unit SUBCUT BEDTIME 10/09/20 11/09/20 (3 mL) subcutaneous pen Previous Rx's Medication Instructions Recorded metoclopramide HCl [Reglan] 5 mg PO DAILY #30 tab 09/14/20 pantoprazole 40 mg tablet,delayed 40 mg PO BID 30 Days #60 tab 09/20/20 release sucralfate 100 mg/mL oral 10 ml PO BID #420 ml 10/17/20 suspension DS: Summary Hospital Course Hospital Course: Patient is a 55-year-old male with diabetes chronic alcohol dependency who is hospitalized rather frequently for alcohol withdrawal on other issues. He presented on this occasion with nausea vomiting and was noted to be in acute renal failure, he had leukocytosis with no obvious signs of infection. Patient ultimately was admitted for alcohol withdrawal week hydration and monitoring of his renal functio and hydration. Early this morning before I could even round on the patient , I was informed that he didnt' want any further lab drawn and that wanted to leave AMA as he fell better and that he did not think he needed to be in the hospital any longer. As usual, I explained the risk of leaving AMA with him he was alert and oriented to self he was a will he was aware of the situation the brought him to the hospital we talked about continuing drinking of alcohol which is his main issue . I asked that the patient stays in the hospital for further evaluation including checking his labs and make sure the heading the right direction and however he was adamant that he did want his labs drawn and this has been the case in the past also and that he was informed that he his health maybe compromised if leave AMA and that the even the possibility of cannot be excluded he was again alert and oriented sound and proceeded to sign the AMA form and to leave the hospital as he has done many many times before. I advised him to go and sees his primary care physician upon discharge as soon as possible to call tomorrow and arrange for follow-up appointment he would not wait for any paperwork also he was advised to continue all his prior medications. No new prescription was issued A see a Time Spent with Patient Time attestation: Total time spent providing and/or coordinating discharge services: Physical Exam Vital Signs: Vital Signs: Last Vital Signs Temp 98.6 F 11/10/20 07:37 Pulse 101 H 11/10/20 07:37 Resp 18 11/10/20 07:37 BP 159/87 H 11/10/20 07:37 Pulse Ox 98 11/10/20 07:37 Body Mass Index 19.3 DS: Data Data Completed and Pending Labs on day of discharge: 11/08/20 11:01 Glucose, Whole Blood Routine 11/08/20 11:02 ondansetron ODT [Zofran ODT] 4 mg TRANSLINGU ONCE ONE 11/08/20 11:03 ondansetron ODT [Zofran ODT] 4 mg TRANSLINGU .STK-MED ONE 11/08/20 11:28 SARS-CoV2/FLU/RSV Stat 11/08/20 13:29 XR chest 1V Stat 11/08/20 15:10 ondansetron ODT [Zofran ODT] 4 mg TRANSLINGU ONCE ONE 11/08/20 15:54 Prochlorperazine Edisylate [Compazine] 10 mg IM ONCE ONE 11/08/20 18:28 Basic Metabolic Panel Stat Complete Blood Count Auto Diff Stat Ethanol Stat Lipase Stat Liver Panel Stat Magnesium Stat 11/08/20 18:39 Metoclopramide HCl [Reglan] 10 mg IVPUSH ONCE ONE 11/08/20 18:41 diphenhydrAMINE HCL [Benadryl] 25 mg IVPUSH ONCE ONE 11/08/20 18:45 0.9 % Sodium Chloride [Ns] 1,000 ml IVCONT 999 mls/hr 11/08/20 19:16 ECG 12 lead EKG Stat EKG Documentation DIRECTED Haloperidol Lactate [Haldol] 2 mg IVPUSH ONCE ONE LORazepam [Ativan] 1 mg IVPUSH ONCE ONE 11/08/20 19:17 0.9 % Sodium Chloride [Ns] 1,000 ml IV 999 mls/hr 11/08/20 19:33 Magnesium Sulfate/H2O 2 gm in 50 ml IV ONCE 11/08/20 19:36 Add Laboratory Test Stat 11/08/20 21:14 Consult Rx EtOH Phenob Dosing 1 each MISCELLANE ONCE ONE 11/08/20 21:15 Consult Rx Perform Med Rec 1 each MISCELLANE ONCE PRN LORazepam [Ativan] 1 mg IVPUSH ONCE ONE 11/08/20 21:30 PHENobarbitaL sodium 255 mg IM ONCE ONE 11/08/20 21:33 COVID-19 ID NOW ([place]) Stat 11/08/20 22:53 Transfer Order Routine 11/08/20 22:54 Code Status Routine 11/09/20 02:00 PHENobarbitaL sodium 191 mg IM 0200,0500 11/09/20 03:03 0.9 % Sodium Chloride Flush [NS Flush] 3 ml IVFLUSH QSHIFT Acetaminophen [Tylenol] 650 mg PO Q6H PRN Docusate Sodium [Colace] 100 mg PO DAILY PRN Lactated Ringers [Lr] 1,000 ml IVCONT 100 mls/hr ondansetron HCL [Zofran] 4 mg IVPUSH Q8H PRN 11/09/20 03:03 Ambulate QSHIFT WHILE AWAKE IV insert/maintain Q4HR Intake and Output Q8HR Vital Signs Q4HR 11/09/20 04:30 Basic Metabolic Panel Routine Complete Blood Count Auto Diff Routine SLIDE REVIEW Routine 11/09/20 05:49 Glucose, blood poc QIDACHS 11/09/20 06:00 Enoxaparin Sodium [Lovenox] 40 mg SUBCUT Q24H 11/09/20 07:30 Insulin Lispro [Humalog] See Protocol SUBCUT QIDACHS 11/09/20 07:35 Glucose, Whole Blood Routine 11/09/20 09:00 Folic Acid 1 mg PO DAILY NO Benzodiazepines 1 each MISCELLANE DAILY PHENobarbitaL 45 mg PO BID Thiamine HCL 100 mg IVPUSH DAILY 11/09/20 10:15 Drug Screen Urine Stat 11/09/20 11:28 Glucose, Whole Blood Routine 11/09/20 17:12 Glucose, Whole Blood Routine 11/09/20 20:09 Glucose, Whole Blood Routine 11/10/20 07:36 Glucose, Whole Blood Routine 11/11/20 09:00 PHENobarbitaL 30 mg PO BID 11/13/20 09:00 PHENobarbitaL 15 mg PO DAILY Laboratory Last Values WBC 18.4 X10*3/uL (4.8-10.8) H 11/09/20 04:30 RBC 4.99 X10*6/uL (4.60-5.80) 11/09/20 04:30 Hgb 11.9 g/dl (14.0-18.0) L 11/09/20 04:30 Hct 38.2 % (42-52) L 11/09/20 04:30 MCV 76.6 fL (80-98) L 11/09/20 04:30 MCH 23.8 pg (27.0-33.0) L 11/09/20 04:30 MCHC 31.2 g/dl (31.0-36.0) 11/09/20 04:30 RDW 16.0 % (11.0-16.0) 11/09/20 04:30 Plt Count 277 X10*3/uL (160-400) 11/09/20 04:30 MPV 10.3 fL (9.4-12.4) 11/09/20 04:30 Immature Gran % (Auto) 0.4 % (0.0-0.4) 11/09/20 04:30 Neut % (Auto) 80.5 % (45-73) H 11/09/20 04:30 Lymph % (Auto) 9.4 % (20-40) L 11/09/20 04:30 [place] % (Auto) 9.5 % (2-11) 11/09/20 04:30 Eos % (Auto) 0.0 % (0-4) 11/09/20 04:30 Baso % (Auto) 0.2 % (0-2) 11/09/20 04:30 Lymph # (Auto) 1.7 X10*3/uL (1.2-4.9) 11/09/20 04:30 [place] # (Auto) 1.8 X10*3/uL (0.1-1.2) H 11/09/20 04:30 Eos # (Auto) 0.0 X10*3/uL (0.0-0.4) 11/09/20 04:30 Baso # (Auto) 0.0 X10*3/uL (0.0-0.2) 11/09/20 04:30 Abs Immat Gran (auto) 0.08 X10*3/uL (0.00-0.03) H 11/09/20 04:30 Absolute Neuts (auto) 14.8 X10*3/uL (2.0-8.3) H 11/09/20 04:30 Absolute Nucleated RBC 0.000 X10*3/uL (0.0-0.012) 11/09/20 04:30 Nucleated RBC % (auto) 0.0 /100WBC (0.0-0.2) 11/09/20 04:30 Smear Tech's Comments VERIFIED 11/09/20 04:30 Sodium 140 mmol/L (135-145) 11/09/20 04:30 Potassium 5.2 mmol/l (3.3-5.1) H D 11/09/20 04:30 Chloride 103 mmol/L (96-108) 11/09/20 04:30 Carbon Dioxide 17 mmol/L (22-29) L 11/09/20 04:30 Anion Gap 25 (12-20) H 11/09/20 04:30 BUN 35 mg/dL (9-16) H 11/09/20 04:30 Creatinine 1.07 mg/dL (0.5-1.4) 11/09/20 04:30 Estim Creat Clear Calc 60.0 11/09/20 04:30 Estimated GFR > 60 11/09/20 04:30 POC Glucose 218 mg/dL (60-115) H 11/10/20 07:36 Random Glucose 137 mg/dL (60-115) H 11/09/20 04:30 Calcium 8.5 mg/dL (8.4-10.2) D 11/09/20 04:30 Magnesium 1.7 mg/dL (1.6-2.6) 11/08/20 18:28 Total Bilirubin 0.4 mg/dL (0.0-1.0) 11/08/20 18:28 Direct Bilirubin 0.3 mg/dL (0.0-0.5) 11/08/20 18:28 AST 30 U/L (5-37) 11/08/20 18:28 ALT 20 U/L (0-40) 11/08/20 18:28 Alkaline Phosphatase 138 U/L (39-117) H 11/08/20 18:28 Total Protein 9.7 g/dL (6.5-8.0) H 11/08/20 18:28 Albumin 4.5 g/dL (3.5-5.0) 11/08/20 18:28 Lipase 5 U/L (8-78) L 11/08/20 18:28 Urine Color YELLOW 11/09/20 10:15 Urine Appearance CLEAR 11/09/20 10:15 Urine pH 6.0 (5.0-8.0) 11/09/20 10:15 Ur Specific [place] >= 1.030 (1.005-1.025) H 11/09/20 10:15 Urine Protein 2+ MG/DL (NEG-TRACE) H 11/09/20 10:15 Urine Glucose (UA) 100 MG/DL (NEG) H 11/09/20 10:15 Urine Ketones 15 MG/DL (NEG) 11/09/20 10:15 Urine Blood NEG (NEG) 11/09/20 10:15 Urine Nitrite NEG (NEG) 11/09/20 10:15 Ur Leukocyte Esterase NEG (NEG) 11/09/20 10:15 Urine RBC 0-2 /HPF (0) 11/09/20 10:15 Urine WBC 0-2 /HPF (0-4) 11/09/20 10:15 Ur Squamous Epith Cells 1+ /LPF 11/09/20 10:15 Urine Bacteria NONE /LPF 11/09/20 10:15 Urine Mucus TRACE /LPF 11/09/20 10:15 Urine Opiates Screen Not Detected (Not Detect) 11/09/20 10:15 Ur Barbiturates Screen POSITIVE (Not Detect) H 11/09/20 10:15 Ur Phencyclidine Scrn Not Detected (Not Detect) 11/09/20 10:15 Ur Amphetamines Screen Not Detected (Not Detect) 11/09/20 10:15 U Benzodiazepines Scrn Not Detected (Not Detect) 11/09/20 10:15 Urine Cocaine Screen Not Detected (Not Detect) 11/09/20 10:15 U Marijuana (THC) Screen Not Detected (Not Detect) 11/09/20 10:15 Ethyl Alcohol 161 mg/dL 11/08/20 18:28 Coronavirus (PCR) NEGATIVE (Negative) 11/08/20 11:28 COVID-19 ([facility]) Negative (Negative) 11/08/20 21:33 COVID-19 Clin Com See Note 11/08/20 21:33 Influenza Type A (PCR) NEGATIVE (Negative) 11/08/20 11:28 Influenza Type B (PCR) NEGATIVE (Negative) 11/08/20 11:28 RSV RNA Qual (PCR) NEGATIVE (Negative) 11/08/20 11:28 Discharge Plan Discharge Anticipated Discharge Date/Time: 11/10/20 10:06 Patient Disposition: Left Against Medical Advice Referrals: [facility] [Primary Care Provider] - Discharge Medications: No Action pantoprazole 40 mg tablet,delayed release (DR/EC) 40 mg PO BID 30 Days Qty: 60 RF: 3 sucralfate [Carafate] 100 mg/mL suspension 10 ml PO BID Qty: 420 RF: 0 metoclopramide HCl [Reglan] 5 mg tablet 5 mg PO DAILY Qty: 30 RF: 0 Vivitrol 380 mg suspension,extended rel recon 380 mg IM Q4W RF: 0 Levemir FlexTouch U-100 Insuln 100 unit/mL (3 mL) insulin pen 30 unit subcut BEDTIME RF: 0 Discharge Orders: Discharge Order (Routine); Ordered 11/10/20 Ordered By: Gibran Wayne Discharge Date/Time: 11/10/20 08:45 Care Plan Goals: Avoid frequent hospitalization and alcohol use Health Concerns: Chronic alcoholism, Plan of Treatment: Patient left AMA.
== END 2020-11-10 08:45 | disposition left against medical advice (07) | DRG 241 ==
LOC: HO.ED 21:17 → HO.S3 23:41
PROVIDERS: Nurse Practitioner Family; Physician Assistant Medical; Admitting Provider Internal Medicine; Emergency Provider Emergency Medicine; Visit Provider Internal Medicine
DX: K29.20 Alcoholic gastritis without bleeding (principal); N17.9 Acute kidney failure, unspecified; E11.9 Type 2 diabetes mellitus without complications; D72.829 Elevated white blood cell count, unspecified; E86.0 Dehydration; F10.239 Alcohol dependence with withdrawal, unspecified; F17.210 Nicotine dependence, cigarettes, uncomplicated; Z20.828 Contact with and (suspected) exposure to other viral communicable diseases; Z91.14 Patient's other noncompliance with medication regimen; Z71.6 Tobacco abuse counseling; Z79.4 Long term (current) use of insulin; Z79.899 Other long term (current) drug therapy
CPT/HCPCS: 0241U; 36415; 71045; 80048; 80076; 80307; 80320; 81001; 82947; 83690; 83735; 85025; 87635; 93005; 96361; 96365; 96366; 96372; 96375; 96376; 99285; J1200; J1650; J2060; J2560; J2765; J3411; J3475

== ENCOUNTER 2020-11-11 15:56 | Emergency (ER) | payer MEDICAID, SELFPAY ==
[2020-11-11 16:19] VITALS: BP 164/94; PULSE 94; RESP 19; TEMP 36.3; O2SAT 97; BMI 25.1
--- NOTE | 2020-11-11 17:08 | PC.NURSE ---
PT currently vomitting, pitcher of water at the bedside.
--- NOTE | 2020-11-11 17:45 | ED_ITS ---
HPI - Alcohol General Chief Complaint: ETOH/Substance Use Stated Complaint: etoh Time Seen by Provider: 11/11/20 16:03 Source: patient Mode of arrival: ambulatory Limitations: no limitations History of Present Illness HPI narrative: Patient comes to emergency room complaining of alcohol intoxication. Patient left against medical advice yesterday. Patient states that if he needs to be admitted, he is willing to stay MD complaint: alcohol intoxication Related Data Home Medications Medication Instructions Recorded Confirmed naltrexone microspheres 380 mg 380 mg IM Q4W 09/19/20 11/09/20 intramuscular suspension,extended release insulin detemir U-100 100 unit/mL 30 unit SUBCUT BEDTIME 10/09/20 11/09/20 (3 mL) subcutaneous pen Previous Rx's Medication Instructions Recorded metoclopramide HCl [Reglan] 5 mg PO DAILY #30 tab 09/14/20 pantoprazole 40 mg tablet,delayed 40 mg PO BID 30 Days #60 tab 09/20/20 release sucralfate 100 mg/mL oral 10 ml PO BID #420 ml 10/17/20 suspension Allergies Allergy/AdvReac Type Severity Reaction Status Date / Time No Known Allergies Allergy Verified 09/20/20 07:19 Review of Systems Review of Systems: Constitutional : No Weight loss, No Fever, No Chills, No Night Sweats, No Fatigue, No Malaise ENT/Mouth : No Hearing loss, No Ear Pain, No Nasal Congestion, No Sinus Pain, No Hoarseness, No sore throat, No Rhinorrhea, No Swallowing Difficulty Eyes: No Eye Pain, No Swelling, No Redness, No Foreign Body, No Discharge, No Vision Changes Cardiovascular : No Chest Pain, No SOB, No Dyspnea on Exertion, No Orthopnea, No Edema, No Palpitations Respiratory : No Cough, No Sputum, No Wheezing, No Smoke Exposure, No Dyspnea Gastrointestinal : Complaining of nausea and vomiting, No Diarrhea, No Constipation, No abdominal Pain, No Hematochezia, No Melena Genitourinary : no irregular bleeding, No Dysuria, No Urinary Frequency, No Hematuria, No Urinary Incontinence, No Urgency, No Flank Pain, No Urinary Flow Changes, No Hesitancy Musculoskeletal : No joint pain, No Myalgias, No Joint Swelling Skin : No Skin Lesions, No rash Neuro : No Weakness, No Numbness, No Paresthesias, No Loss of Consciousness, No Dizziness, No Headache Psych : No Anxiety/Panic, No Depression, No SI/HI/AH/VH, No Social Issues, Heme/Lymph: No Bruising, No Bleeding,No Lymphadenopathy Endocrine : No Polyuria, No Polydipsia, No Temperature Intolerance [facility] Past Medical History Medical History Alcoholism Depressed Diabetes Esophageal stricture Gastritis GIB (gastrointestinal bleeding) Head injury HTN (hypertension) Odynophagia Pancreatitis Seizures Surgical History History of esophagogastroduodenoscopy (EGD) Family History Family History Father Diabetes Social History Social History (Updated 10/09/20 @ 09:54 by Sugey Veliz PA-C) Alcohol intake: current Alcohol intake frequency: 3 or more drinks per day Alcohol type: beer and hard liquor Smoking Status: Current every day smoker Smoked in Last 30 Days: Yes Use of substances other than those prescribed or required for medical reasons: Unknown Advance Directives: No Advance Directives Information Provided: Yes service: No Current occupational status: unemployed Physical Exam Vital Signs: Vital Signs: Last Vital Signs Temp 99.2 F 11/12/20 00:00 Pulse 95 11/12/20 00:00 Resp 20 11/12/20 00:00 BP 161/72 H 11/12/20 00:00 Pulse Ox 98 11/12/20 00:00 Body Mass Index 25.1 Appearance: Alert. Oriented X3. No acute distress. Actively vomiting Eyes: Pupils equal, round and reactive to light. ENT: Pharynx normal. Neck: Normal inspection. Neck supple. No lymph nodes noted. No crepitus CVS: Normal heart rate and rhythm. Pulses normal. Normal S1 and S2 Respiratory: No respiratory distress. Breath sounds normal. No Wheezing. No rales Abdomen: Soft and nontender. No rigidity. No distention. Skin: Skin warm and dry. Normal skin color. Normal skin turgor. Extremities: No lower extremity edema. No lower extremity edema. No Lacerations. No Rash Neuro: Oriented X 3. No motor deficit. No sensory deficit. Moving all extermities. No slurred speech. Course Course Course Narrative: I was informed by the patient's nurse that he is refusing lab work. Only requesting Ativan. Patient denies suicidal or homicidal ideation 1:00am, until now patient has refused all labs, patient remains intoxicated. He will be reassessed in the morning. Sign-out given to Dr. Johnson Discharge Plan Discharge Clinical Impression: Alcohol abuse, Alcoholic intoxication Prescriptions: No Action pantoprazole 40 mg tablet,delayed release (DR/EC) 40 mg PO BID 30 Days Qty: 60 RF: 3 sucralfate [Carafate] 100 mg/mL suspension 10 ml PO BID Qty: 420 RF: 0 metoclopramide HCl [Reglan] 5 mg tablet 5 mg PO DAILY Qty: 30 RF: 0 Vivitrol 380 mg suspension,extended rel recon 380 mg IM Q4W RF: 0 Levemir FlexTouch U-100 Insuln 100 unit/mL (3 mL) insulin pen 30 unit subcut BEDTIME RF: 0
[2020-11-11] MEDS: Prochlorperazine Edisylate 10 MG/2 ML VIAL IM ×2 (17:50→22:59)
--- NOTE | 2020-11-11 17:56 | PC.NURSE ---
PT continues vomiting, provider aware, pt mediated per emar.
[2020-11-11 18:00] VITALS: RESP 22
--- NOTE | 2020-11-11 18:14 | PC.NURSE ---
Pt refusing POC and continues to refuse lab draw at this time.
[2020-11-11] MEDS: LORazepam 1 MG TABLET 2 MG PO (18:50)
--- NOTE | 2020-11-11 19:36 | PC.NURSE ---
Report received. PT is actively withdrawing from alcohol. Exhibiting symptoms of nausea, vomiting, and chills. Continue to monitor and provide information for detox.
[2020-11-11 20:06] VITALS: BP 169/80; PULSE 89; RESP 18; TEMP 36.9; O2SAT 99
--- NOTE | 2020-11-11 20:44 | PC.NURSE ---
Phlebotomy came for labs because PT would not let anyone else try to stick him. Phlebotomy missed the first try and PT would not allow a second attempt.
[2020-11-12] VITALS: BP 161/72; PULSE 95; RESP 20; TEMP 37.3; O2SAT 98
[2020-11-12 03:24] VITALS: BP 180/82; PULSE 89; RESP 14; TEMP 37.4; O2SAT 100
[2020-11-12 06:00] VITALS: RESP 16
--- NOTE | 2020-11-12 10:23 | MHC.RECOVSUP ---
? Reason for consult:Continuity of care o Current location: [address] o Identified substance use concern:ETOH ? Intervention: o Community resources provided o Harm reduction discussion ? Plan:Giving patient time to make up his mind o ? Additional information: Met with patient and he was not receptive to going to detox. Explained CCC and Mat, yey he still was uncooperative. Plan to speak with him again a little later.
--- NOTE | 2020-11-12 13:59 | MHC.RECOVSUP ---
Addendum entered by Garrett Ragsdale [facility] 11/12/20 16:12: Shantelle has completed phone intake with this patient. Shantelle has concerns related to patient's lab values. They are requesting updated labs prior to accepting patient for an evening admission. Patient initially not willing to provide labs. If patient is not willing to provide labs, patient will likely not be accepted for treatment. Patient able to discharge if he does not allow labs. Discussed case with patient's ED Provider. Original Note: Recovery Support note: Patient expressed interest in going to detox. Patient has been working with Health Informatics Instructor on securing placement. Patient information is currently being reviewed by [facility] as they report to have a bed for patient. This story writer awaits a call back from [facility] at this time.
== END 2020-11-12 17:09 | disposition home or self-care (01) ==
PROVIDERS: Emergency Provider Emergency Medicine
DX: F10.120 Alcohol abuse with intoxication, uncomplicated (principal); E11.9 Type 2 diabetes mellitus without complications; I10 Essential (primary) hypertension
CPT/HCPCS: 96372; 99285

== ENCOUNTER 2020-11-13 01:01 | Inpatient (IN) | payer MEDICAID, SELFPAY ==
[2020-11-13] VITALS (14 sets, daily range): BP systolic 147–190; BP diastolic 48–95; PULSE 106–125; RESP 15–22; TEMP 36.8–37.2; O2SAT 97–100; BMI 29.0
--- NOTE | 2020-11-13 03:01 | PC.NURSE ---
This pct tried to draw labs ,per pt stating he will not let this staff member or any other draw or place an iv,that is not an EJ. RONNIE Anderson and MD Johnson made aware. No further attemps by this staff member. Jelena HERRERA
--- NOTE | 2020-11-13 03:25 | PC.NURSE ---
This lead technical writer and another RN, Alex Alberts attempted to venous access without success. Attempts made x 4 total and each it was unsuccessful. Patient then refused any other attempts at blood draw and requested an external jugular iv. MD cazares.
--- NOTE | 2020-11-13 04:41 | ED.ABDPAIN ---
HPI - Abdominal Pain General Chief Complaint: Abdominal Pain Stated Complaint: abd Time Seen by Provider: 11/13/20 01:23 Source: patient History of Present Illness HPI narrative: This is a 55-year-old male who states that he has been having multiple episodes of nausea and vomiting with blood with associated abdominal discomfort but denies any fevers, chills, shortness of breath, chest pain/palpitations. He states he has not drank since he was discharged. Related Data Home Medications Medication Instructions Recorded Confirmed naltrexone microspheres 380 mg 380 mg IM Q4W 09/19/20 11/09/20 intramuscular suspension,extended release insulin detemir U-100 100 unit/mL 30 unit SUBCUT BEDTIME 10/09/20 11/09/20 (3 mL) subcutaneous pen Previous Rx's Medication Instructions Recorded metoclopramide HCl [Reglan] 5 mg PO DAILY #30 tab 09/14/20 pantoprazole 40 mg tablet,delayed 40 mg PO BID 30 Days #60 tab 09/20/20 release sucralfate 100 mg/mL oral 10 ml PO BID #420 ml 10/17/20 suspension Allergies Allergy/AdvReac Type Severity Reaction Status Date / Time No Known Allergies Allergy Verified 09/20/20 07:19 Review of Systems Review of Systems Pertinent positives and negatives as stated in HPI 10 point review of systems is otherwise negative. Physical Exam Vital Signs: Vital Signs: Last Vital Signs Temp 99 F 11/13/20 01:30 Pulse 116 H 11/13/20 01:45 Resp 15 11/13/20 06:00 BP 147/48 H 11/13/20 04:00 Pulse Ox 97 11/13/20 04:00 Body Mass Index 29.0 VITAL SIGNS: Reviewed. GENERAL: Well developed, well nourished, in no acute distress. HEAD: Normocephalic/atraumatic, EYES: PERRLA, EOMI EARS: Ext canals without abnormality, TMs non-bulging and non-erythematous NOSE: Nares patent bilateral OROPHARYNX: no oral lesions noted, posterior pharynx clear NECK: Supple, no adenopathy LUNGS: Normal breath sounds. No adventitious sounds or accessory muscle use. SpO2<97> CARDIOVASCULAR: Regular rate and rhythm without noted murmurs, no JVD or lower extremity edema. ABDOMEN: Soft, diffuse tenderness without rebound, non-distended with bowel sounds. No rigidity. No guarding. No palpable masses or hernias noted NEUROLOGIC: Alert and oriented x 4. Strength and sensation to light touch were grossly intact x 4. Procedures EJ/Peripheral Line Arm L: Time Out Performed: No Skin Cleansed in Sterile Fashion: Yes Size (gauge): 18 IV Secured and Dressing Applied: Yes Patient Tolerated Procedure: well Additional Comments: Ultrasound-guided left AC Course Course Course Narrative: This is a 55-year-old male with history and clinical presentation suggestive of possible gastritis, UGIB, pancreatitis, less likely DKA. On review of all investigations patient is in DKA with a gap of 26 and the noted leukocytosis is felt to be a combination of stress response as there is no evidence on chest x-ray obtained on or urinalysis. Alcohol is negative and U tox is positive for barbiturates. Patient will continue to see receive IV fluids, subQ insulin and re-evaluate. Sign out to Dr Polanco. MDM - Abdominal Pain Lab Data Result diagrams: 11/13/20 04:38 11/13/20 04:38 Labs: Lab Results 11/13/20 11/13/20 11/13/20 Range/Units 04:38 04:38 04:38 WBC 25.5 H (4.8-10.8) X10*3/uL RBC 5.41 (4.60-5.80) X10*6/uL Hgb 12.8 L (14.0-18.0) g/dl Hct 40.8 L (42-52) % MCV 75.4 L (80-98) fL MCH 23.7 L (27.0-33.0) pg MCHC 31.4 (31.0-36.0) g/dl RDW 15.9 (11.0-16.0) % Plt Count 341 (160-400) X10*3/uL MPV 9.6 (9.4-12.4) fL Immature Gran % (Auto) 0.7 H (0.0-0.4) % Neut % (Auto) 88.6 H (45-73) % Lymph % (Auto) 4.4 L (20-40) % [place] % (Auto) 5.8 (2-11) % Eos % (Auto) 0.3 (0-4) % Baso % (Auto) 0.2 (0-2) % Lymph # (Auto) 1.1 L (1.2-4.9) X10*3/uL [place] # (Auto) 1.5 H (0.1-1.2) X10*3/uL Eos # (Auto) 0.1 (0.0-0.4) X10*3/uL Baso # (Auto) 0.0 (0.0-0.2) X10*3/uL Abs Immat Gran (auto) 0.17 H (0.00-0.03) X10*3/uL Absolute Neuts (auto) 22.7 H (2.0-8.3) X10*3/uL Absolute Nucleated RBC 0.000 (0.0-0.012) X10*3/uL Nucleated RBC % (auto) 0.0 (0.0-0.2) /100WBC Smear Tech's Comments VERIFIED PT (10.8-13.0) SEC INR (0.9-1.1) Sodium 128 L (135-145) mmol/L Potassium 4.6 (3.3-5.1) mmol/l Chloride 85 L (96-108) mmol/L Carbon Dioxide 17 L (22-29) mmol/L Anion Gap 31 H (12-20) BUN 26 H (9-16) mg/dL Creatinine 1.50 H (0.5-1.4) mg/dL Estim Creat Clear Calc 59.5 Estimated GFR 49 Random Glucose 368 H* (60-115) mg/dL Calcium 9.4 D (8.4-10.2) mg/dL Magnesium 1.9 (1.6-2.6) mg/dL Total Bilirubin 0.7 (0.0-1.0) mg/dL AST 31 (5-37) U/L ALT 21 (0-40) U/L Alkaline Phosphatase 131 H (39-117) U/L Total Protein 9.0 H (6.5-8.0) g/dL Albumin 4.2 (3.5-5.0) g/dL Lipase < 4 L (8-78) U/L Urine Color Urine Appearance Urine pH (5.0-8.0) Ur Specific [place] (1.005-1.025) Urine Protein (NEG-TRACE) MG/DL Urine Glucose (UA) (NEG) MG/DL Urine Ketones (NEG) MG/DL Urine Blood (NEG) Urine Nitrite (NEG) Ur Leukocyte Esterase (NEG) Urine RBC (0) /HPF Urine WBC (0-4) /HPF Ur Squamous Epith Cells /LPF Urine Bacteria /LPF Urine Mucus /LPF Urine Yeast /HPF Urine Opiates Screen (Not Detect) Ur Barbiturates Screen (Not Detect) Ur Phencyclidine Scrn (Not Detect) Ur Amphetamines Screen (Not Detect) U Benzodiazepines Scrn (Not Detect) Urine Cocaine Screen (Not Detect) U Marijuana (THC) Screen (Not Detect) Ethyl Alcohol < 10 mg/dL Acetone, Qual Large H (Negative) 11/13/20 11/13/20 11/13/20 Range/Units 04:38 04:59 04:59 WBC (4.8-10.8) X10*3/uL RBC (4.60-5.80) X10*6/uL Hgb (14.0-18.0) g/dl Hct (42-52) % MCV (80-98) fL MCH (27.0-33.0) pg MCHC (31.0-36.0) g/dl RDW (11.0-16.0) % Plt Count (160-400) X10*3/uL MPV (9.4-12.4) fL Immature Gran % (Auto) (0.0-0.4) % Neut % (Auto) (45-73) % Lymph % (Auto) (20-40) % [place] % (Auto) (2-11) % Eos % (Auto) (0-4) % Baso % (Auto) (0-2) % Lymph # (Auto) (1.2-4.9) X10*3/uL [place] # (Auto) (0.1-1.2) X10*3/uL Eos # (Auto) (0.0-0.4) X10*3/uL Baso # (Auto) (0.0-0.2) X10*3/uL Abs Immat Gran (auto) (0.00-0.03) X10*3/uL Absolute Neuts (auto) (2.0-8.3) X10*3/uL Absolute Nucleated RBC (0.0-0.012) X10*3/uL Nucleated RBC % (auto) (0.0-0.2) /100WBC Smear Tech's Comments PT 11.5 (10.8-13.0) SEC INR 1.0 (0.9-1.1) Sodium (135-145) mmol/L Potassium (3.3-5.1) mmol/l Chloride (96-108) mmol/L Carbon Dioxide (22-29) mmol/L Anion Gap (12-20) BUN (9-16) mg/dL Creatinine (0.5-1.4) mg/dL Estim Creat Clear Calc Estimated GFR Random Glucose (60-115) mg/dL Calcium (8.4-10.2) mg/dL Magnesium (1.6-2.6) mg/dL Total Bilirubin (0.0-1.0) mg/dL AST (5-37) U/L ALT (0-40) U/L Alkaline Phosphatase (39-117) U/L Total Protein (6.5-8.0) g/dL Albumin (3.5-5.0) g/dL Lipase (8-78) U/L Urine Color YELLOW Urine Appearance CLEAR Urine pH 5.5 (5.0-8.0) Ur Specific [place] 1.025 (1.005-1.025) Urine Protein 1+ H (NEG-TRACE) MG/DL Urine Glucose (UA) >=1000 H (NEG) MG/DL Urine Ketones >=80 (NEG) MG/DL Urine Blood 1+ H (NEG) Urine Nitrite NEG (NEG) Ur Leukocyte Esterase NEG (NEG) Urine RBC 0-2 (0) /HPF Urine WBC 1-4 (0-4) /HPF Ur Squamous Epith Cells 3+ /LPF Urine Bacteria 2+ /LPF Urine Mucus 2+ /LPF Urine Yeast 1+ /HPF Urine Opiates Screen Not Detected (Not Detect) Ur Barbiturates Screen POSITIVE H (Not Detect) Ur Phencyclidine Scrn Not Detected (Not Detect) Ur Amphetamines Screen Not Detected (Not Detect) U Benzodiazepines Scrn Not Detected (Not Detect) Urine Cocaine Screen Not Detected (Not Detect) U Marijuana (THC) Screen Not Detected (Not Detect) Ethyl Alcohol mg/dL Acetone, Qual (Negative) ECG Data Attestation: I personally reviewed and interpreted this ECG as follows: Prior ECG tracings: available for review (11/08/2020 no acute changes on comparison) Interpretation: Sinus tachycardia, HR-119, no evidence of acute ischemia, MS/QRS/QTC are within normal limits. Discharge Plan Discharge Prescriptions: No Action pantoprazole 40 mg tablet,delayed release (DR/EC) 40 mg PO BID 30 Days Qty: 60 RF: 3 sucralfate [Carafate] 100 mg/mL suspension 10 ml PO BID Qty: 420 RF: 0 metoclopramide HCl [Reglan] 5 mg tablet 5 mg PO DAILY Qty: 30 RF: 0 Vivitrol 380 mg suspension,extended rel recon 380 mg IM Q4W RF: 0 Levemir FlexTouch U-100 Insuln 100 unit/mL (3 mL) insulin pen 30 unit subcut BEDTIME RF: 0 PMFSH Past Medical History Source: nursing notes reviewed Medical History Alcoholism Depressed Diabetes Esophageal stricture Gastritis GIB (gastrointestinal bleeding) Head injury HTN (hypertension) Odynophagia Pancreatitis Seizures Surgical History History of esophagogastroduodenoscopy (EGD) Family History Family History Father Diabetes Social History Social History Alcohol intake: current Alcohol intake frequency: 3 or more drinks per day Alcohol type: hard liquor Smoking Status: Unknown if ever smoked Use of substances other than those prescribed or required for medical reasons: No Advance Directives: No service: No Current occupational status: unemployed
[2020-11-13 04:43] LABS: Basophils Percent Auto 0.2 % (0-2); Eosinophils Absolute Auto 0.1 X10*3/uL (0.0-0.4); Eosinophils Percent Auto 0.3 % (0-4); Hematocrit 40.8 % (42-52); Hemoglobin 12.8 g/dl (14.0-18.0); Imm Gran Abs Auto 0.17 X10*3/uL (0.00-0.03); Imm Gran Pct Auto 0.7 % (0.0-0.4); Lymphocytes Absolute Auto 1.1 X10*3/uL (1.2-4.9); Lymphocytes Percent Auto 4.4 % (20-40); MANUAL DIFF FLAG SCAN; Mean Corpuscular HGB Conc 31.4 g/dl (31.0-36.0); Mean Corpuscular Hemoglobin 23.7 pg (27.0-33.0); Mean Corpuscular Volume 75.4 fL (80-98); Mean Platelet Volume 9.6 fL (9.4-12.4); Monocytes Absolute Auto 1.5 X10*3/uL (0.1-1.2); Monocytes Percent Auto 5.8 % (2-11); Neutrophils Absolute Auto 22.7 X10*3/uL (2.0-8.3); Neutrophils Percent Auto 88.6 % (45-73); Platelet Count 341 X10*3/uL (160-400); Red Blood Count 5.41 X10*6/uL (4.60-5.80); Red Cell Distribution Width 15.9 % (11.0-16.0); SCAN SMEAR FLAG 1; White Blood Count 25.5 X10*3/uL (4.8-10.8)
--- NOTE | 2020-11-13 04:48 | ECG_ITS ---
Test Reason : BASE LINE Blood Pressure : / mmHG Vent. Rate : 119 BPM Atrial Rate : 119 BPM P-R Int : 124 ms QRS Dur : 092 ms QT Int : 328 ms P-R-T Axes : 080 085 048 degrees QTc Int : 461 ms Sinus tachycardia Otherwise normal ECG When compared with ECG of 08-NOV-2020 19:28, No significant change was found Referred By: Nathalia Johnson Electronically Signed By:Maynor Salcedo
--- NOTE | 2020-11-13 04:48 | PC.NURSE ---
Peripheral IV placed by Dr Johnson, ED Provider with ultrasound guidance. IV placed successfully. Patient asking for food but was brought in for vomiting blood and therefore we did not give patient food.
[2020-11-13 04:50] LABS: Prothrombin Time 11.5 SEC (10.8-13.0)
[2020-11-13] MEDS: 0.9 % Sodium Chloride 1,000 ML 999 ML IV ×2 (05:01→06:25)
[2020-11-13 05:09] LABS: Ethanol < 10 mg/dL
[2020-11-13 05:18] LABS: Glucose Urine UA >=1000 MG/DL (NEG); Leukocyte Esterase Urine NEG (NEG); Nitrite Urine NEG (NEG); PH 5.5 (5.0-8.0); Specific Gravity - Urine 1.025 (1.005-1.025); Urine Blood 1+ (NEG); Urine Ketones >=80 MG/DL (NEG); Urine Protein 1+ MG/DL (NEG-TRACE)
[2020-11-13 05:20] LABS: Appearance Urine CLEAR; Color Urine YELLOW
[2020-11-13 05:25] LABS: Bacteria Urine 2+ /LPF; Mucus Urine 2+ /LPF; RBC Urine 0-2 /HPF (0); Squamous Epithelial Cell Urine 3+ /LPF
[2020-11-13 05:28] LABS: Amphetamine Screen Urine Not Detected (Not Detect); Barbiturates, Urine POSITIVE (Not Detect); Benzodiazepines Screen Urine Not Detected (Not Detect); Cannabinoid Screen Urine Not Detected (Not Detect); Cocaine Screen Urine Not Detected (Not Detect); Opiate Screen Urine Not Detected (Not Detect); Phencyclidine Screen Urine Not Detected (Not Detect)
[2020-11-13 05:30] LABS: SLIDE REVIEW VERIFIED
[2020-11-13 05:31] LABS: Alanine Aminotransferase 21 U/L (0-40); Albumin Level 4.2 g/dL (3.5-5.0); Alkaline Phosphatase 131 U/L (39-117); Anion Gap 31 (12-20); Aspartate Amino Transferase 31 U/L (5-37); Bilirubin Total 0.7 mg/dL (0.0-1.0); Blood Urea Nitrogen 26 mg/dL (9-16); Calcium 9.4 mg/dL (8.4-10.2); Carbon Dioxide 17 mmol/L (22-29); Chloride 85 mmol/L (96-108); Creatinine Clr Calc Pharmacy 59.5; Estimated Glomerular Filt Rate 49; Glucose Random 368 mg/dL (60-115); Lipase < 4 U/L (8-78); Magnesium 1.9 mg/dL (1.6-2.6); Potassium 4.6 mmol/l (3.3-5.1); Sodium 128 mmol/L (135-145)
[2020-11-13] MEDS: ondansetron HCL 4 MG/2 ML VIAL IVPUSH (06:00)
[2020-11-13 06:33] LABS: Acetone, serum QL Large (Negative)
--- NOTE | 2020-11-13 06:56 | XR_ITS ---
EXAMINATION: XR CHEST CLINICAL INFORMATION: Cough COMPARISON: Previous chest x-ray 11/08/2020 TECHNIQUE: Frontal view of the chest was obtained. FINDINGS: The cardiac and mediastinal contours are stable. The lungs are clear. There is no pleural effusion or pneumothorax. There are degenerative changes of the thoracic spine. There are posttraumatic changes to the right proximal humerus. XR/XR chest 1V IMPRESSION: No evidence for acute disease in the chest.
[2020-11-13] MEDS: 0.9 % Sodium Chloride 1,000 ML 999 ML IVCONT (06:59)
[2020-11-13 07:04] LABS: Glucose, Whole Blood 337 mg/dL (60-115)
[2020-11-13] MEDS: Pantoprazole Sodium 40 MG/10 ML VIAL IVPUSH (07:07)
[2020-11-13] MEDS: Insulin Regular, Human 100 UNIT/ML 3 ML VIAL IVPUSH (07:07)
--- NOTE | 2020-11-13 07:24 | PC.NURSE ---
Report taken form Monica TRUJILLO. pt sleeping on stretcher at time of assessment. woke easily to voice. pt reports he feels better . pt given protonix and iv insulin by this RN. additional IV fluids hung. COVID swab done and sent to lab. Will recheck blood sugar. Pt has not vomited.
[2020-11-13 07:34] LABS: COVID-19 Test Negative (Negative)
[2020-11-13] MEDS: PHENobarbitaL sodium 130 MG/ML VIAL 273 MG IM (07:39)
[2020-11-13 07:58] LABS: Glucose, Whole Blood 265 mg/dL (60-115)
[2020-11-13 08:42] LABS: Glucose, Whole Blood 256 mg/dL (60-115)
[2020-11-13 10:11] LABS: Anion Gap 25 (12-20); Blood Urea Nitrogen 22 mg/dL (9-16); Calcium 7.8 mg/dL (8.4-10.2); Carbon Dioxide 12 mmol/L (22-29); Chloride 98 mmol/L (96-108); Creatinine Clr Calc Pharmacy 70.3; Estimated Glomerular Filt Rate 59; Glucose Random 277 mg/dL (60-115); Potassium 5.3 mmol/l (3.3-5.1); Sodium 130 mmol/L (135-145)
[2020-11-13] MEDS: PHENobarbitaL sodium 130 MG/ML VIAL 205 MG IM ×2 (10:34→14:19)
[2020-11-13] MEDS: Insulin Regular/NS 100 UNIT/100 ML PLAST..BAG IVCONT (10:56)
[2020-11-13] MEDS: Dextrose 5 % and 0.9 % NaCl 1,000 ML 100 ML IVCONT (11:06)
[2020-11-13 11:55] LABS: Glucose, Whole Blood 248 mg/dL (60-115)
--- NOTE | 2020-11-13 11:56 | PC.NURSE ---
1 hr poc 248. md aware that protocol states to increase rate by 50%. per md increase to 7ml/hour, 7 units/hour
[2020-11-13 12:55] LABS: Glucose, Whole Blood 223 mg/dL (60-115)
[2020-11-13 14:01] LABS: Glucose, Whole Blood 198 mg/dL (60-115)
[2020-11-13 14:55] LABS: Glucose, Whole Blood 175 mg/dL (60-115)
[2020-11-13 15:17] LABS: Anion Gap 14 (12-20); Blood Urea Nitrogen 17 mg/dL (9-16); Calcium 7.9 mg/dL (8.4-10.2); Carbon Dioxide 19 mmol/L (22-29); Chloride 102 mmol/L (96-108); Creatinine Clr Calc Pharmacy 78.3; Estimated Glomerular Filt Rate > 60; Glucose Random 204 mg/dL (60-115); Potassium 4.2 mmol/l (3.3-5.1); Sodium 131 mmol/L (135-145)
--- NOTE | 2020-11-13 17:04 | HP_ITS ---
DATE OF SERVICE: 11/13/2020 PRIMARY CARE PROVIDER: Not listed. CHIEF COMPLAINT: Nausea and vomiting. HISTORY OF PRESENT ILLNESS: A 55-year-old man who is well known to the hospitalist, who presents after having a bingeing episode of alcohol last night with nausea and vomiting. He reports blood-tinged vomitus as well. He does have a history of diabetes and seems to be noncompliant with his medications. In the ER, initially, he had signs of DKA including anion gap of 31, sodium of 130, potassium 5.3, bicarb 12, and high urine glucose. He also had large acetone. All of this has seemed to resolve with initiation of IV fluid and IV insulin. The patient at this point is resting in bed. Denies any abdominal pain. No vomiting noted. His vital signs are stable. He has no fever or leukocytosis. He was noted to be mildly tachycardic and tachypneic. Urinalysis shows 1 to 4 wbc's with 2+ bacteria. Maybe mild UTI. The patient will be admitted for further management and treatment of DKA and alcohol withdrawal. PAST MEDICAL HISTORY: 1. Alcohol abuse. 2. Hypertension. 3. Diabetes mellitus. 4. Depression. 5. Esophageal stricture. 6. Gastritis. 7. GI bleed. 8. Hypertension. 9. Odynophagia. 10. Pancreatitis. 11. Seizure. 12. Subdural hematoma. 13. Hepatitis C. 14. GI bleed. FAMILY HISTORY: Diabetes. SOCIAL HISTORY: Drinks heavy amount of alcohol, did not quantify how much he drinks. Denies tobacco or illicit drug use. ALLERGIES: NO KNOWN ALLERGIES. MEDICATIONS: 1. Bupropion 100 mg p.o. daily. 2. Dicyclomine 10 mg p.o. t.i.d. p.r.n. 3. Folic acid 1 mg p.o. daily. 4. Insulin aspart 8 units subcu t.i.d. 5. Insulin detemir 35 units subcu at bedtime. 6. Lisinopril 20 mg p.o. daily. 7. Multivitamin 1 tab p.o. daily. 8. Pantoprazole 40 mg p.o. b.i.d. 9. Sucralfate 10 mg p.o. b.i.d. 10. Thiamine 100 mg p.o. daily. 11. Trazodone 50 mg p.o. at bedtime. REVIEW OF SYSTEMS: CONSTITUTIONAL: Denies any recent fever, chills, or decrease in appetite. RESPIRATORY: Denies any shortness of breath, cough, or sputum production. CARDIOVASCULAR: Denies any chest pain. ABDOMEN: Reported some abdominal pain with nausea and vomiting. GENITOURINARY: Denies any dysuria, frequency, or hematuria. MUSCULOSKELETAL: Denies any joint pain or swelling. NEUROPSYCH: Denies any weakness or seizures. All other systems are reviewed and are negative. PHYSICAL EXAMINATION: CONSTITUTIONAL: Resting in bed, appearing in no acute distress. VITAL SIGNS: 98.7, 109, 21, 161/95, 100% on room air. SKIN: Intact without rash or open sores. HEENT: Head is normocephalic, atraumatic. Eyes, pupils are PERRLA. Sclerae anicteric. Mouth and throat: Mucous membranes are intact and moist. NECK: Supple. No lymphadenopathy. No JVD noted. CHEST: Clear to auscultation without wheezes, rhonchi, or rales. HEART: Regular rate and rhythm. Clear S1, S2. No murmurs, rubs, or gallops. ABDOMEN: Positive bowel sounds. Soft, nontender. No hepatomegaly or splenomegaly noted. NEURO: The patient is alert and oriented x3. Cranial nerves II through XII are grossly intact without focal deficits. LABORATORY DATA: WBC is 25.5, hemoglobin 12.8, hematocrit 40.8, platelets 341. Sodium is 131, potassium is 4.2, chloride is 102, bicarb is 19, anion gap is 14, BUN is 17, creatinine is 1.14, glucose is 204. ASSESSMENT AND PLAN: A 55-year-old man, who is being admitted with intractable nausea and vomiting and likely related to gastritis. He initially presented in DKA, however, did improve with insulin and IV fluids. 1. Diabetic ketoacidosis. Improved, gap closed, bicarb better. Continue IV fluids, sliding scale, long-acting insulin. 2. Alcohol withdrawal. Phenobarbital protocol. Continue thiamine, folic acid, multivitamin. 3. Gastritis. Likely from heavy alcohol drinking, PPI. Encouraged alcohol cessation. Alcohol abuse. Phenobarbital protocol. 4. Hyponatremia. Likely related to DKA. Follow BMP. 5. Hyperkalemia. Resolved. Follow BMP. 6. Hypertension, stable blood pressure. Continue lisinopril. 7. Depression. Continue bupropi 8. Deep vein thrombosis prophylaxis with mechanical compression boots. Case discussed with Dr. Dang. Full code JUSTICE Adorno MD JR/ANDERSON / [id number] MTDD
[2020-11-13 17:10] LABS: Glucose, Whole Blood 174 mg/dL (60-115)
--- NOTE | 2020-11-13 18:14 | PM.EVENT ---
Event Note Date of Service: 11/13/20 Event Note: addendum to H+P by JUSTICE Egan I interviewed and examined the patient. I discussed their presentation and management with the mid-level provider. I reviewed the history and physical and agree with the documentation, with the following additions and corrections: 55yo M with hx DM2 + HTN + gastritis + depression + EtOH abuse p/w N/V with small amount blood-tinged vomitus, found to be in DKA with anion gap of 31. Given IV fluids and IV insulin and gap closed so medicine admission requested. Admits he has not been taking his insulin and has been drinking a lot of EtOH. His left him and she was his primary caregiver. in NAD, lungs clear, CV RRR no m/r/g, abd soft/NT, restricted affect labs: WBC 25.5, Hb 12.8, plt 341, SCr 1.14, glu 204, AG 14 WBC is 25.5, hemoglobin 12.8, hematocrit 40.8, platelets 341. Sodium is 131, potassium is 4.2, chloride is 102, bicarb is 19, anion gap is 14, BUN is 17, creatinine is 1.14, glucose is 204. Plan admit to [facility], continue IV fluid hydration, monitor electrolytes, resume home insulin regimen. Treat with phenobarbital taper and B vitamins for EtOH withdrawal. Give PPI for EtOH gastritis. Suspect leukocytosis reactive; no localizing signs of infection. Pseudohyponatremia due to hyperglycemia
[2020-11-13 20:09] LABS: Magnesium 1.8 mg/dL (1.6-2.6)
[2020-11-13] MEDS: 0.9 % Sodium Chloride 1,000 ML 100 ML IVCONT (20:46)
[2020-11-13 20:59] LABS: Glucose, Whole Blood 269 mg/dL (60-115)
--- NOTE | 2020-11-13 21:11 | PC.NURSE ---
patient refuses telesiter
[2020-11-13] MEDS: Insulin Lispro 100 UNIT/ML 3 ML VIAL SUBCUT (21:22)
[2020-11-13] MEDS: Insulin Glargine,Hum.rec.anlog 100 UNIT/ML 10 ML VIAL 24 UNIT SUBCUT (21:23)
[2020-11-13] MEDS: PHENobarbitaL 15 MG TABLET 45 MG PO (21:24)
[2020-11-13] MEDS: traZODone HCL 50 MG TABLET PO (21:25)
[2020-11-13] MEDS: Sucralfate Oral Suspension 1 GM/10 ML ORAL.SUSP PO (21:25)
[2020-11-13 23:07] LABS: Anion Gap 23 (12-20); Blood Urea Nitrogen 16 mg/dL (9-16); Calcium 7.9 mg/dL (8.4-10.2); Carbon Dioxide 11 mmol/L (22-29); Chloride 99 mmol/L (96-108); Creatinine Clr Calc Pharmacy 77.6; Estimated Glomerular Filt Rate > 60; Glucose Random 277 mg/dL (60-115); Potassium 5.3 mmol/l (3.3-5.1); Sodium 128 mmol/L (135-145)
[2020-11-14] VITALS (8 sets, daily range): BP systolic 133–164; BP diastolic 69–79; PULSE 93–110; RESP 18; TEMP 36.6–37.6; O2SAT 98–100
[2020-11-14] MEDS: Omeprazole 20 MG CAPSULE.DR PO ×2 (06:27→16:52)
[2020-11-14] MEDS: 0.9 % Sodium Chloride 1,000 ML 100 ML IVCONT ×2 (06:30→16:47)
[2020-11-14 07:28] LABS: Glucose, Whole Blood 269 mg/dL (60-115)
[2020-11-14] MEDS: Insulin Lispro 100 UNIT/ML 3 ML VIAL 8 UNIT SUBCUT ×3 (07:37→16:48)
[2020-11-14] MEDS: Insulin Lispro 100 UNIT/ML 3 ML VIAL SUBCUT ×4 (07:37→21:27)
[2020-11-14] MEDS: PHENobarbitaL 15 MG TABLET 45 MG PO ×2 (08:37→21:27)
[2020-11-14] MEDS: Sucralfate Oral Suspension 1 GM/10 ML ORAL.SUSP PO ×2 (08:37→21:26)
[2020-11-14] MEDS: lisinopriL 20 MG TABLET PO (08:37)
[2020-11-14] MEDS: Folic Acid 1 MG TABLET PO (08:38)
[2020-11-14] MEDS: Multivitamin TABLET 1 TAB PO (08:38)
[2020-11-14] MEDS: Thiamine HCL 100 MG TABLET PO (08:38)
[2020-11-14 11:07] LABS: Glucose, Whole Blood 297 mg/dL (60-115)
--- NOTE | 2020-11-14 12:26 | MHC.CM.PN ---
CM met with patient at the bedside who reports he is independent and lives alone. Patient does not have a HCP and declines filling one out today after education provided. Discussed discharge plan, home no services. Patient will need bus pass for transport home. CM will continue to follow for discharge needs.
--- NOTE | 2020-11-14 12:45 | HO.PM.IMPN ---
Subjective Subjective Date of Service: 11/14/20 Interval History: Mild stomach discomfort but otherwise no complaints. No fever, chills, nausea, or vomiting. Denies SI. Physical Exam Vital Signs: Vital Signs: Last Vital Signs Temp 99.3 F 11/14/20 11:17 Pulse 107 H 11/14/20 11:17 Resp 18 11/14/20 11:17 BP 137/75 11/14/20 11:17 Pulse Ox 99 11/14/20 11:17 Body Mass Index 29.0 Gen: in no acute distress HEENT: sclera anicteric, moist mucus membranes Neck: supple Lungs: clear to auscultation bilaterally Heart: regular rate and rhythm, no murmurs Abd: soft, non-tender, non-distended Ext: no edema Skin: warm/well-perfused Neuro: alert and oriented x3, no focal findings Psych: restricted affect Objective Data Current Medications Generic Name Dose Route Start Last Admin Trade Name Freq PRN Reason Stop Dose Admin Acetaminophen 650 mg 11/13/20 19:49 Acetaminophen 325 Mg Tablet PO Q6H PRN Pain, Mild (Pain Scale 1-3) Dicyclomine HCl 10 mg 11/13/20 19:49 Dicyclomine Hcl 10 Mg Capsule PO TID PRN Abdominal Pain Folic Acid 1 mg 11/14/20 09:00 11/14/20 08:38 Folic Acid 1 Mg Tablet PO 1 mg DAILY GOSIA Administration Sodium Chloride 1,000 mls @ 100 mls/hr 11/13/20 19:49 11/14/20 06:30 Ns IVCONT 100 mls/hr .Q10H GOSIA Administration Insulin Glargine 30 unit 11/14/20 08:08 Insulin Glargine,Hum.Rec.Anlog 100 Unit/Ml 10 Ml Vial SUBCUT BEDTIME GOSIA Insulin Human Lispro 0 unit 11/13/20 19:49 11/14/20 11:14 Insulin Lispro 100 Unit/Ml 3 Ml Vial SUBCUT 6 unit QIDACHS [facility] Administration Protocol Insulin Human Lispro 8 unit 11/14/20 07:30 11/14/20 11:15 Insulin Lispro 100 Unit/Ml 3 Ml Vial SUBCUT 8 unit TIDAC GOSIA Administration Lisinopril 20 mg 11/14/20 09:00 11/14/20 08:37 Lisinopril 20 Mg Tablet PO 20 mg DAILY GOSIA Administration Protocol Medication 1 each 11/13/20 09:00 No Benzodiazepines MISCELLANE DAILY GOSIA Multivitamins/Vitamin C 1 tab 11/14/20 09:00 11/14/20 08:38 Multivitamin Tablet PO 1 tab DAILY GOSIA Administration Non-Formulary Medication 100 mg 11/14/20 09:00 Bupropion Hcl PO DAILY GOSIA Omeprazole 20 mg 11/14/20 06:30 11/14/20 06:27 Omeprazole 20 Mg Capsule. PO 20 mg BID@7063,0820 GOSIA Administration Ondansetron HCl 4 mg 11/13/20 19:49 Ondansetron Hcl 4 Mg/2 Ml Vial IVPUSH Q8H PRN Nausea and Vomiting Pharmacy Consult 1 each 11/13/20 05:58 Consult Rx Perform Med Rec MISCELLANE ONCE PRN Consult order Phenobarbital 45 mg 11/13/20 21:00 11/14/20 08:37 Phenobarbital 15 Mg Tablet PO 11/15/20 09:01 45 mg BID GOSIA Administration Phenobarbital 15 mg 11/15/20 21:00 Phenobarbital 15 Mg Tablet PO 11/17/20 09:01 BID GOSIA Phenobarbital 15 mg 11/17/20 21:00 Phenobarbital 15 Mg Tablet PO 11/18/20 21:01 BEDTIME GOSIA Sodium Chloride 3 ml 11/14/20 00:00 11/14/20 07:38 0.9 % Sodium Chloride Flush 3 Ml Syringe IVFLUSH Not Given QSHIFT [facility] Sucralfate 1 gm 11/13/20 21:00 11/14/20 08:37 Sucralfate Oral Suspension 1 Gm/10 Ml Oral.Susp PO 1 gm BID GOSIA Administration Thiamine HCl 100 mg 11/14/20 09:00 11/14/20 08:38 Thiamine Hcl 100 Mg Tablet PO 100 mg DAILY GOSIA Administration Trazodone HCl 50 mg 11/13/20 21:00 11/13/20 21:25 Trazodone Hcl 50 Mg Tablet PO 50 mg BEDTIME GOSIA Administration Labs CBC & Chem 7: 11/13/20 04:38 11/13/20 21:46 Labs: Laboratory Results - last 24 hr 11/13/20 11/13/20 11/13/20 12:51 13:57 13:58 Sodium 131 L Potassium 4.2 D Chloride 102 Carbon Dioxide 19 L Anion Gap 14 BUN 17 H Creatinine 1.14 Estim Creat Clear Calc 78.3 Estimated GFR > 60 POC Glucose 223 H 198 H Random Glucose 204 H Calcium 7.9 L Magnesium 1.8 11/13/20 11/13/20 11/13/20 14:51 17:07 20:48 Sodium Potassium Chloride Carbon Dioxide Anion Gap BUN Creatinine Estim Creat Clear Calc Estimated GFR POC Glucose 175 H 174 H 269 H Random Glucose Calcium Magnesium 11/13/20 11/14/20 11/14/20 21:46 07:22 11:00 Sodium 128 L Potassium 5.3 H D Chloride 99 Carbon Dioxide 11 L Anion Gap 23 H BUN 16 Creatinine 1.15 Estim Creat Clear Calc 77.6 Estimated GFR > 60 POC Glucose 269 H 297 H Random Glucose 277 H D Calcium 7.9 L Magnesium Assessment and Plan (1) DKA (diabetic ketoacidoses): Status: Acute Assessment and Plan: hospital d#2 55yo M with DM2, EtOH abuse admitted with mild DKA, gap closed in ED, related to nonadherence # DKA # DM2 - resume home basal/bolus insulin, check A1c, counseled importance of adherence, check electrolytes, continue IV fluids # RONN - resolved in ED after fluid hydration # hyperK - mild, related to DKA, recheck lytes now # leukocytosis - likely reactive, no localizing signs of infection # EtOH withdrawal - phenobarbital taper, vitamins, counseling # EtOH gastritis - PPI, sucralfate # HTN - continue lisinopril, trazodone # mood disorder - bupropion # VTE ppx - LMWH
[2020-11-14 13:45] LABS: Blood Urea Nitrogen 9 mg/dL (9-16); Calcium 8.1 mg/dL (8.4-10.2); Creatinine Clr Calc Pharmacy 91.1; Estimated Glomerular Filt Rate > 60; Glucose Random 289 mg/dL (60-115); Magnesium 1.5 mg/dL (1.6-2.6)
[2020-11-14 13:57] LABS: Anion Gap 14 (12-20); Carbon Dioxide 21 mmol/L (22-29); Chloride 97 mmol/L (96-108); Phosphorus 0.9 mg/dL (2.7-4.5); Potassium 3.7 mmol/l (3.3-5.1); Sodium 128 mmol/L (135-145)
--- NOTE | 2020-11-14 14:02 | MHC.RECOVSUP ---
Recovery Support note: Patient is a 55 year old [place]auan speaking male who presented to [facility] [place] [place] ED via EMS due to abdominal pain and vomiting and was medically admitted. Patient is known to this radio news writer from previous consults. This radio news writer and the Recovery Support Nurse met with patient to discuss his alcohol use. Patient reports he is ready to get back into recovery stating I'm going to if I keep drinking. Patient reports that his was not helpful to his recovery and that she would limit what he was able to do which contributed to his drinking. Patient reports he would previously attend hinduism and that his would not let him. Patient reports he recently chose to separate from his because he wants to focus on himself and his health. Patient reports he was able to maintain sobriety in the past when he was heavily involved with his hinduism and he believes he will be able to avoid alcohol again with the support of his hinduism. Discussed medications for alcohol use disorder with patient. Patient reports he was previously on Campral and found it helpful and he would be willing to start that medication again. Patient will be referred for an addiction medicine consult. Patient reports he would also be interested in receiving information on additional supports in the community. This radio news writer will follow up with patient tomorrow to provide him information on IOP, AA and [facility]. Discussed case with patient's RN. This radio news writer available as needed.
[2020-11-14] MEDS: Enoxaparin Sodium 40 MG/0.4 ML SYRINGE SUBCUT (14:31)
[2020-11-14 16:39] LABS: Basophils Absolute Auto 0.1 X10*3/uL (0.0-0.2); Basophils Percent Auto 0.2 % (0-2); Eosinophils Absolute Auto 0.2 X10*3/uL (0.0-0.4); Hematocrit 30.3 % (42-52); Imm Gran Abs Auto 0.16 X10*3/uL (0.00-0.03); Imm Gran Pct Auto 0.8 % (0.0-0.4); Lymphocytes Absolute Auto 1.8 X10*3/uL (1.2-4.9); Lymphocytes Percent Auto 8.6 % (20-40); MANUAL DIFF FLAG SCAN; Mean Corpuscular Hemoglobin 24.3 pg (27.0-33.0); Mean Corpuscular Volume 73.5 fL (80-98); Mean Platelet Volume 10.1 fL (9.4-12.4); Monocytes Absolute Auto 1.6 X10*3/uL (0.1-1.2); NRBC Pct Auto 0.1 /100WBC (0.0-0.2); Neutrophils Absolute Auto 16.7 X10*3/uL (2.0-8.3); Neutrophils Percent Auto 81.4 % (45-73); Platelet Count 269 X10*3/uL (160-400); Red Blood Count 4.12 X10*6/uL (4.60-5.80); Red Cell Distribution Width 15.7 % (11.0-16.0); SCAN SMEAR FLAG 1; White Blood Count 20.5 X10*3/uL (4.8-10.8)
[2020-11-14 16:45] LABS: Glucose, Whole Blood 161 mg/dL (60-115)
[2020-11-14] MEDS: Magnesium Sulfate/H2O 2 GM/50 ML PIGGYBACK IV (16:56)
[2020-11-14 17:09] LABS: SLIDE REVIEW VERIFIED
[2020-11-14 20:30] LABS: Glucose, Whole Blood 207 mg/dL (60-115)
[2020-11-14] MEDS: traZODone HCL 50 MG TABLET PO (21:27)
[2020-11-14] MEDS: Insulin Glargine,Hum.rec.anlog 100 UNIT/ML 10 ML VIAL 30 UNIT SUBCUT (21:28)
[2020-11-15 03:42] VITALS: BP 151/75; PULSE 89; RESP 18; TEMP 37.2; O2SAT 99
[2020-11-15] MEDS: Omeprazole 20 MG CAPSULE.DR PO ×2 (05:20→16:50)
[2020-11-15 07:01] LABS: Estimated Average Glucose 235 mg/dL; Hemoglobin A1c % 9.8 %
[2020-11-15 08:00] VITALS: BP 159/78; PULSE 97; RESP 18; TEMP 36.9; O2SAT 99
[2020-11-15 08:01] LABS: Glucose, Whole Blood 354 mg/dL (60-115)
[2020-11-15] MEDS: Insulin Lispro 100 UNIT/ML 3 ML VIAL SUBCUT ×2 (08:07→16:49)
[2020-11-15] MEDS: Insulin Lispro 100 UNIT/ML 3 ML VIAL 8 UNIT SUBCUT ×2 (08:08→16:49)
[2020-11-15] MEDS: PHENobarbitaL 15 MG TABLET 45 MG PO (08:10)
[2020-11-15] MEDS: Sucralfate Oral Suspension 1 GM/10 ML ORAL.SUSP PO ×2 (08:10→21:21)
[2020-11-15] MEDS: Folic Acid 1 MG TABLET PO (08:11)
[2020-11-15 08:12] VITALS: BP 155/80; PULSE 86
[2020-11-15] MEDS: Thiamine HCL 100 MG TABLET PO (08:12)
[2020-11-15] MEDS: Multivitamin TABLET 1 TAB PO (08:12)
[2020-11-15] MEDS: lisinopriL 20 MG TABLET PO (08:12)
[2020-11-15 09:58] LABS: Basophils Absolute Auto 0.1 X10*3/uL (0.0-0.2); Basophils Percent Auto 0.7 % (0-2); Eosinophils Absolute Auto 0.4 X10*3/uL (0.0-0.4); Eosinophils Percent Auto 3.5 % (0-4); Hematocrit 31.8 % (42-52); Hemoglobin 10.5 g/dl (14.0-18.0); Imm Gran Abs Auto 0.14 X10*3/uL (0.00-0.03); Imm Gran Pct Auto 1.4 % (0.0-0.4); Lymphocytes Absolute Auto 1.3 X10*3/uL (1.2-4.9); Lymphocytes Percent Auto 12.2 % (20-40); MANUAL DIFF FLAG SCAN; Mean Corpuscular Hemoglobin 24.1 pg (27.0-33.0); Mean Corpuscular Volume 72.9 fL (80-98); Monocytes Absolute Auto 0.9 X10*3/uL (0.1-1.2); Monocytes Percent Auto 8.5 % (2-11); NRBC Pct Auto 0.3 /100WBC (0.0-0.2); Neutrophils Absolute Auto 7.6 X10*3/uL (2.0-8.3); Neutrophils Percent Auto 73.7 % (45-73); PLT CLUMP 1; Red Blood Count 4.36 X10*6/uL (4.60-5.80); Red Cell Distribution Width 15.6 % (11.0-16.0); SCAN SMEAR FLAG 1
[2020-11-15 10:03] LABS: White Blood Count 10.3 X10*3/uL (4.8-10.8)
[2020-11-15 10:33] LABS: Anion Gap 12 (12-20); Blood Urea Nitrogen 7 mg/dL (9-16); Calcium 7.8 mg/dL (8.4-10.2); Carbon Dioxide 22 mmol/L (22-29); Chloride 99 mmol/L (96-108); Creatinine Clr Calc Pharmacy 111.6; Estimated Glomerular Filt Rate > 60; Glucose Random 256 mg/dL (60-115); Magnesium 1.5 mg/dL (1.6-2.6); Phosphorus 1.8 mg/dL (2.7-4.5); Potassium 3.4 mmol/l (3.3-5.1); Sodium 130 mmol/L (135-145)
[2020-11-15 10:41] LABS: Platelet Count 278 X10*3/uL (160-400); SLIDE REVIEW VERIFIED
[2020-11-15 11:40] LABS: Glucose, Whole Blood 68 mg/dL (60-115)
[2020-11-15] MEDS: 0.9 % Sodium Chloride 1,000 ML 100 ML IVCONT (11:50)
[2020-11-15 12:00] VITALS: RESP 20
--- NOTE | 2020-11-15 12:14 | HO.PM.IMPN ---
Subjective Subjective Date of Service: 11/15/20 Interval History: some abd discomfort, no N/V still hyperglycemic committed to sobriety Physical Exam Vital Signs: Vital Signs: Last Vital Signs Temp 98.4 F 11/15/20 08:00 Pulse 86 11/15/20 08:12 Resp 18 11/15/20 08:00 BP 155/80 H 11/15/20 08:12 Pulse Ox 99 11/15/20 08:00 Body Mass Index 29.0 Gen: in no acute distress HEENT: sclera anicteric, moist mucus membranes Neck: supple Lungs: clear to auscultation bilaterally Heart: regular rate and rhythm, no murmurs Abd: soft, non-tender, non-distended Ext: no edema Skin: warm/well-perfused Neuro: alert and oriented x3, no focal findings Psych: appropriate affect Objective Data Current Medications Generic Name Dose Route Start Last Admin Trade Name Freq PRN Reason Stop Dose Admin Acetaminophen 650 mg 11/13/20 19:49 Acetaminophen 325 Mg Tablet PO Q6H PRN Pain, Mild (Pain Scale 1-3) Dicyclomine HCl 10 mg 11/13/20 19:49 Dicyclomine Hcl 10 Mg Capsule PO TID PRN Abdominal Pain Enoxaparin Sodium 40 mg 11/14/20 13:00 11/14/20 14:31 Enoxaparin Sodium 40 Mg/0.4 Ml Syringe SUBCUT 40 mg Q24H GOSIA Administration Folic Acid 1 mg 11/14/20 09:00 11/15/20 08:11 Folic Acid 1 Mg Tablet PO 1 mg DAILY GOSIA Administration Sodium Chloride 1,000 mls @ 100 mls/hr 11/13/20 19:49 11/15/20 11:50 Ns IVCONT 100 mls/hr .Q10H GOSIA Administration Insulin Glargine 35 unit 11/15/20 21:00 Insulin Glargine,Hum.Rec.Anlog 100 Unit/Ml 10 Ml Vial SUBCUT BEDTIME [facility] Insulin Human Lispro 0 unit 11/13/20 19:49 11/15/20 11:48 Insulin Lispro 100 Unit/Ml 3 Ml Vial SUBCUT Not Given QIDACHS [facility] Protocol Insulin Human Lispro 8 unit 11/14/20 07:30 11/15/20 11:48 Insulin Lispro 100 Unit/Ml 3 Ml Vial SUBCUT Not Given TIDAC [facility] Lisinopril 20 mg 11/14/20 09:00 11/15/20 08:12 Lisinopril 20 Mg Tablet PO 20 mg DAILY [facility] Administration Protocol Magnesium Oxide 400 mg 11/15/20 17:30 Magnesium Oxide 400 Mg Tablet PO BIDPC [facility] Medication 1 each 11/13/20 09:00 No Benzodiazepines MISCELLANE DAILY [facility] Multivitamins/Vitamin C 1 tab 11/14/20 09:00 11/15/20 08:12 Multivitamin Tablet PO 1 tab DAILY [facility] Administration Non-Formulary Medication 100 mg 11/14/20 09:00 Bupropion Hcl PO DAILY [facility] Omeprazole 20 mg 11/14/20 06:30 11/15/20 05:20 Omeprazole 20 Mg Capsule. PO 20 mg BID@0630,0930 [facility] Administration Ondansetron HCl 4 mg 11/13/20 19:49 Ondansetron Hcl 4 Mg/2 Ml Vial IVPUSH Q8H PRN Nausea and Vomiting Pharmacy Consult 1 each 11/13/20 05:58 Consult Rx Perform Med Rec MISCELLANE ONCE PRN Consult order Phenobarbital 15 mg 11/15/20 21:00 Phenobarbital 15 Mg Tablet PO 11/17/20 09:01 BID [facility] Phenobarbital 15 mg 11/17/20 21:00 Phenobarbital 15 Mg Tablet PO 11/18/20 21:01 BEDTIME [facility] Sodium Chloride 3 ml 11/14/20 00:00 11/15/20 08:12 0.9 % Sodium Chloride Flush 3 Ml Syringe IVFLUSH Not Given QSHIFT [facility] Sucralfate 1 gm 11/13/20 21:00 11/15/20 08:10 Sucralfate Oral Suspension 1 Gm/10 Ml Oral.Susp PO 1 gm BID [facility] Administration Thiamine HCl 100 mg 11/14/20 09:00 11/15/20 08:12 Thiamine Hcl 100 Mg Tablet PO 100 mg DAILY [facility] Administration Trazodone HCl 50 mg 11/13/20 21:00 11/14/20 21:27 Trazodone Hcl 50 Mg Tablet PO 50 mg BEDTIME [facility] Administration Labs CBC & Chem 7: 11/15/20 09:07 11/15/20 09:07 Labs: Laboratory Results - last 24 hr 11/14/20 11/14/20 11/14/20 12:50 12:50 12:51 WBC Cancelled RBC Cancelled Hgb Cancelled Hct Cancelled MCV Cancelled MCH Cancelled MCHC Cancelled RDW Cancelled Plt Count Cancelled MPV Cancelled Immature Gran % (Auto) Cancelled Neut % (Auto) Cancelled Lymph % (Auto) Cancelled [place] % (Auto) Cancelled Eos % (Auto) Cancelled Baso % (Auto) Cancelled Lymph # (Auto) Cancelled [place] # (Auto) Cancelled Eos # (Auto) Cancelled Baso # (Auto) Cancelled Abs Immat Gran (auto) Cancelled Absolute Neuts (auto) Cancelled Absolute Nucleated RBC Cancelled Nucleated RBC % (auto) Cancelled Smear Tech's Comments Sodium Cancelled Potassium Cancelled Chloride Cancelled Carbon Dioxide Cancelled Anion Gap Cancelled BUN Cancelled Creatinine Cancelled Estim Creat Clear Calc Cancelled Estimated GFR Cancelled POC Glucose Random Glucose Cancelled Estimat Average Glucose Cancelled Hemoglobin A1c % Cancelled Calcium Cancelled Phosphorus Magnesium 11/14/20 11/14/20 11/14/20 12:51 12:51 12:52 WBC Cancelled RBC Cancelled Hgb Cancelled Hct Cancelled MCV Cancelled MCH Cancelled MCHC Cancelled RDW Cancelled Plt Count Cancelled MPV Cancelled Immature Gran % (Auto) Cancelled Neut % (Auto) Cancelled Lymph % (Auto) Cancelled [place] % (Auto) Cancelled Eos % (Auto) Cancelled Baso % (Auto) Cancelled Lymph # (Auto) Cancelled [place] # (Auto) Cancelled Eos # (Auto) Cancelled Baso # (Auto) Cancelled Abs Immat Gran (auto) Cancelled Absolute Neuts (auto) Cancelled Absolute Nucleated RBC Cancelled Nucleated RBC % (auto) Cancelled Smear Tech's Comments Sodium 128 L Potassium 3.7 D Chloride 97 Carbon Dioxide 21 L Anion Gap 14 BUN 9 Creatinine 0.98 Estim Creat Clear Calc 91.1 Estimated GFR > 60 POC Glucose Random Glucose 289 H Estimat Average Glucose Hemoglobin A1c % Calcium 8.1 L Phosphorus 0.9 L* Magnesium Cancelled 1.5 L 11/14/20 11/14/20 11/14/20 16:20 16:20 16:42 WBC 20.5 H RBC 4.12 L D Hgb 10.0 L D Hct 30.3 L D MCV 73.5 L MCH 24.3 L MCHC 33.0 RDW 15.7 Plt Count 269 MPV 10.1 Immature Gran % (Auto) 0.8 H Neut % (Auto) 81.4 H Lymph % (Auto) 8.6 L [place] % (Auto) 8.0 Eos % (Auto) 1.0 Baso % (Auto) 0.2 Lymph # (Auto) 1.8 [place] # (Auto) 1.6 H Eos # (Auto) 0.2 Baso # (Auto) 0.1 Abs Immat Gran (auto) 0.16 H Absolute Neuts (auto) 16.7 H Absolute Nucleated RBC 0.030 H Nucleated RBC % (auto) 0.1 Smear Tech's Comments VERIFIED Sodium Potassium Chloride Carbon Dioxide Anion Gap BUN Creatinine Estim Creat Clear Calc Estimated GFR POC Glucose 161 H Random Glucose Estimat Average Glucose 235 Hemoglobin A1c % 9.8 Calcium Phosphorus Magnesium 11/14/20 11/15/20 11/15/20 20:17 07:48 09:07 WBC 10.3 RBC 4.36 L Hgb 10.5 L Hct 31.8 L MCV 72.9 L MCH 24.1 L MCHC 33.0 RDW 15.6 Plt Count 278 MPV Not Reportable Immature Gran % (Auto) 1.4 H Neut % (Auto) 73.7 H Lymph % (Auto) 12.2 L [place] % (Auto) 8.5 Eos % (Auto) 3.5 Baso % (Auto) 0.7 Lymph # (Auto) 1.3 [place] # (Auto) 0.9 Eos # (Auto) 0.4 Baso # (Auto) 0.1 Abs Immat Gran (auto) 0.14 H Absolute Neuts (auto) 7.6 Absolute Nucleated RBC 0.030 H Nucleated RBC % (auto) 0.3 H Smear Tech's Comments VERIFIED Sodium Potassium Chloride Carbon Dioxide Anion Gap BUN Creatinine Estim Creat Clear Calc Estimated GFR POC Glucose 207 H 354 H* Random Glucose Estimat Average Glucose Hemoglobin A1c % Calcium Phosphorus Magnesium 11/15/20 11/15/20 09:07 11:32 WBC RBC Hgb Hct MCV MCH MCHC RDW Plt Count MPV Immature Gran % (Auto) Neut % (Auto) Lymph % (Auto) [place] % (Auto) Eos % (Auto) Baso % (Auto) Lymph # (Auto) [place] # (Auto) Eos # (Auto) Baso # (Auto) Abs Immat Gran (auto) Absolute Neuts (auto) Absolute Nucleated RBC Nucleated RBC % (auto) Smear Tech's Comments Sodium 130 L Potassium 3.4 Chloride 99 Carbon Dioxide 22 Anion Gap 12 BUN 7 L Creatinine 0.80 Estim Creat Clear Calc 111.6 Estimated GFR > 60 POC Glucose 68 Random Glucose 256 H Estimat Average Glucose Hemoglobin A1c % Calcium 7.8 L Phosphorus 1.8 L Magnesium 1.5 L Assessment and Plan (1) DKA (diabetic ketoacidoses): Status: Acute Assessment and Plan: hospital d#3 55yo M with DM2, EtOH abuse admitted with mild DKA, gap closed in ED, related to nonadherence # DKA # DM2, A1c 9.8 - basal/bolus insulin, adherence counseling # RONN - resolved in ED after fluid hydration # hypoMg - replete # hypoPO4 - replete # hyperK - resolved, was due to DKA # leukocytosis - likely reactive, no localizing signs of infection, resolved # EtOH withdrawal - continue phenobarbital taper, vitamins, counseling # EtOH gastritis - PPI, sucralfate # HTN - continue lisinopril, trazodone # mood disorder - bupropion # VTE ppx - LMWH # dispo - likely home tomorrow
--- NOTE | 2020-11-15 13:24 | MHC.CM.PN ---
patient continues on phenobarbital for ETOH. Discharge plan is home no services. Patient will need bus pass for transport. CM will continue to follow for discharge needs.
--- NOTE | 2020-11-15 14:04 | MHC.RECOVSUP ---
Recovery Support note: This senior grant writer followed up with patient to review outpatient recovery supports and to inform patient of his appointment at the [facility]. Patient has an appointment at the [facility] on Wednesday11/20/20 at 930. Patient aware and has appointment reminder.
[2020-11-15] MEDS: Enoxaparin Sodium 40 MG/0.4 ML SYRINGE SUBCUT (15:17)
[2020-11-15] MEDS: Naltrexone HCl 50 MG TABLET PO (15:22)
[2020-11-15] MEDS: Sodium,Potassium Phosphates POWD.PACK 1 PACKET PO (15:22)
[2020-11-15] MEDS: 0.9 % Sodium Chloride Flush 3 ML SYRINGE IVFLUSH ×2 (15:22→21:29)
[2020-11-15 15:41] VITALS: BP 145/76; PULSE 88; RESP 18; TEMP 37.3; O2SAT 100
[2020-11-15 16:37] LABS: Glucose, Whole Blood 346 mg/dL (60-115)
--- NOTE | 2020-11-15 16:47 | HO.ADDICTCON ---
History of Present Illness Date of Service: 11/15/2020 Chief Complaint: DKA, gastritis Reason for Consult: Alcohol use disorder medication eval Requesting physician: Dereje Dang Discussed with referring provider: Yes Sources of Information: patient interviewed and chart reviewed HPI Narrative: Patient is a 55 year old male with history of alcohol use disorder currently medically admitted with mild DKA and ETOH withdrawal patient reports he recently restarted drinking after having some time in recovery He has previosuly found campral to be helpful Medical Evaluation Reviewed: Yes likely will discharge tomorrow 11/16/2020 Review of Systems Psychiatric: Reports anxiety and Reports depression Diagnostics Vital Signs (24Hr): Vital Signs - 24 hr 11/14/20 19:17 11/14/20 23:55 11/15/20 03:42 Temperature 99.7 F 98.4 F 98.9 F Pulse Rate 97 93 89 Respiratory Rate 18 18 18 Blood Pressure 133/69 141/70 H 151/75 H Pulse Oximetry 99 99 99 11/15/20 08:00 11/15/20 08:12 11/15/20 12:00 Temperature 98.4 F Pulse Rate 97 86 Respiratory Rate 18 20 Blood Pressure 159/78 H 155/80 H Pulse Oximetry 99 11/15/20 15:41 Temperature 99.1 F Pulse Rate 88 Respiratory Rate 18 Blood Pressure 145/76 H Pulse Oximetry 100 Body Mass Index 29.0 Labs Results: 11/15/20 09:07 11/15/20 09:07 Labs: Laboratory Results - last 48 hr 11/13/20 11/13/20 11/13/20 13:58 17:07 20:48 WBC RBC Hgb Hct MCV MCH MCHC RDW Plt Count MPV Immature Gran % (Auto) Neut % (Auto) Lymph % (Auto) [place] % (Auto) Eos % (Auto) Baso % (Auto) Lymph # (Auto) [place] # (Auto) Eos # (Auto) Baso # (Auto) Abs Immat Gran (auto) Absolute Neuts (auto) Absolute Nucleated RBC Nucleated RBC % (auto) Smear Tech's Comments Sodium Potassium Chloride Carbon Dioxide Anion Gap BUN Creatinine Estim Creat Clear Calc Estimated GFR POC Glucose 174 H 269 H Random Glucose Estimat Average Glucose Hemoglobin A1c % Calcium Phosphorus Magnesium 1.8 11/13/20 11/14/20 11/14/20 21:46 07:22 11:00 WBC RBC Hgb Hct MCV MCH MCHC RDW Plt Count MPV Immature Gran % (Auto) Neut % (Auto) Lymph % (Auto) [place] % (Auto) Eos % (Auto) Baso % (Auto) Lymph # (Auto) [place] # (Auto) Eos # (Auto) Baso # (Auto) Abs Immat Gran (auto) Absolute Neuts (auto) Absolute Nucleated RBC Nucleated RBC % (auto) Smear Tech's Comments Sodium 128 L Potassium 5.3 H D Chloride 99 Carbon Dioxide 11 L Anion Gap 23 H BUN 16 Creatinine 1.15 Estim Creat Clear Calc 77.6 Estimated GFR > 60 POC Glucose 269 H 297 H Random Glucose 277 H D Estimat Average Glucose Hemoglobin A1c % Calcium 7.9 L Phosphorus Magnesium 11/14/20 11/14/20 11/14/20 12:50 12:50 12:51 WBC Cancelled RBC Cancelled Hgb Cancelled Hct Cancelled MCV Cancelled MCH Cancelled MCHC Cancelled RDW Cancelled Plt Count Cancelled MPV Cancelled Immature Gran % (Auto) Cancelled Neut % (Auto) Cancelled Lymph % (Auto) Cancelled [place] % (Auto) Cancelled Eos % (Auto) Cancelled Baso % (Auto) Cancelled Lymph # (Auto) Cancelled [place] # (Auto) Cancelled Eos # (Auto) Cancelled Baso # (Auto) Cancelled Abs Immat Gran (auto) Cancelled Absolute Neuts (auto) Cancelled Absolute Nucleated RBC Cancelled Nucleated RBC % (auto) Cancelled Smear Tech's Comments Sodium Cancelled Potassium Cancelled Chloride Cancelled Carbon Dioxide Cancelled Anion Gap Cancelled BUN Cancelled Creatinine Cancelled Estim Creat Clear Calc Cancelled Estimated GFR Cancelled POC Glucose Random Glucose Cancelled Estimat Average Glucose Cancelled Hemoglobin A1c % Cancelled Calcium Cancelled Phosphorus Magnesium 11/14/20 11/14/20 11/14/20 12:51 12:51 12:52 WBC Cancelled RBC Cancelled Hgb Cancelled Hct Cancelled MCV Cancelled MCH Cancelled MCHC Cancelled RDW Cancelled Plt Count Cancelled MPV Cancelled Immature Gran % (Auto) Cancelled Neut % (Auto) Cancelled Lymph % (Auto) Cancelled [place] % (Auto) Cancelled Eos % (Auto) Cancelled Baso % (Auto) Cancelled Lymph # (Auto) Cancelled [place] # (Auto) Cancelled Eos # (Auto) Cancelled Baso # (Auto) Cancelled Abs Immat Gran (auto) Cancelled Absolute Neuts (auto) Cancelled Absolute Nucleated RBC Cancelled Nucleated RBC % (auto) Cancelled Smear Tech's Comments Sodium 128 L Potassium 3.7 D Chloride 97 Carbon Dioxide 21 L Anion Gap 14 BUN 9 Creatinine 0.98 Estim Creat Clear Calc 91.1 Estimated GFR > 60 POC Glucose Random Glucose 289 H Estimat Average Glucose Hemoglobin A1c % Calcium 8.1 L Phosphorus 0.9 L* Magnesium Cancelled 1.5 L 11/14/20 11/14/20 11/14/20 16:20 16:20 16:42 WBC 20.5 H RBC 4.12 L D Hgb 10.0 L D Hct 30.3 L D MCV 73.5 L MCH 24.3 L MCHC 33.0 RDW 15.7 Plt Count 269 MPV 10.1 Immature Gran % (Auto) 0.8 H Neut % (Auto) 81.4 H Lymph % (Auto) 8.6 L [place] % (Auto) 8.0 Eos % (Auto) 1.0 Baso % (Auto) 0.2 Lymph # (Auto) 1.8 [place] # (Auto) 1.6 H Eos # (Auto) 0.2 Baso # (Auto) 0.1 Abs Immat Gran (auto) 0.16 H Absolute Neuts (auto) 16.7 H Absolute Nucleated RBC 0.030 H Nucleated RBC % (auto) 0.1 Smear Tech's Comments VERIFIED Sodium Potassium Chloride Carbon Dioxide Anion Gap BUN Creatinine Estim Creat Clear Calc Estimated GFR POC Glucose 161 H Random Glucose Estimat Average Glucose 235 Hemoglobin A1c % 9.8 Calcium Phosphorus Magnesium 11/14/20 11/15/20 11/15/20 20:17 07:48 09:07 WBC 10.3 RBC 4.36 L Hgb 10.5 L Hct 31.8 L MCV 72.9 L MCH 24.1 L MCHC 33.0 RDW 15.6 Plt Count 278 MPV Not Reportable Immature Gran % (Auto) 1.4 H Neut % (Auto) 73.7 H Lymph % (Auto) 12.2 L [place] % (Auto) 8.5 Eos % (Auto) 3.5 Baso % (Auto) 0.7 Lymph # (Auto) 1.3 [place] # (Auto) 0.9 Eos # (Auto) 0.4 Baso # (Auto) 0.1 Abs Immat Gran (auto) 0.14 H Absolute Neuts (auto) 7.6 Absolute Nucleated RBC 0.030 H Nucleated RBC % (auto) 0.3 H Smear Tech's Comments VERIFIED Sodium Potassium Chloride Carbon Dioxide Anion Gap BUN Creatinine Estim Creat Clear Calc Estimated GFR POC Glucose 207 H 354 H* Random Glucose Estimat Average Glucose Hemoglobin A1c % Calcium Phosphorus Magnesium 11/15/20 11/15/20 11/15/20 09:07 11:32 16:30 WBC RBC Hgb Hct MCV MCH MCHC RDW Plt Count MPV Immature Gran % (Auto) Neut % (Auto) Lymph % (Auto) [place] % (Auto) Eos % (Auto) Baso % (Auto) Lymph # (Auto) [place] # (Auto) Eos # (Auto) Baso # (Auto) Abs Immat Gran (auto) Absolute Neuts (auto) Absolute Nucleated RBC Nucleated RBC % (auto) Smear Tech's Comments Sodium 130 L Potassium 3.4 Chloride 99 Carbon Dioxide 22 Anion Gap 12 BUN 7 L Creatinine 0.80 Estim Creat Clear Calc 111.6 Estimated GFR > 60 POC Glucose 68 346 H Random Glucose 256 H Estimat Average Glucose Hemoglobin A1c % Calcium 7.8 L Phosphorus 1.8 L Magnesium 1.5 L Imaging Radiology Impressions: ITS Impressions Chest X-Ray 11/13/20 06:56 IMPRESSION: No evidence for acute disease in the chest. Mental Status Exam Mental Status Exam Patient Appearance: Appropriate Patient Orientation: Person, Place, Time and Situation Level of Consciousness: Awake, Appropriate and Alert Patient Behavior: Appropriate Mood Description: Blunted Affect Description: Blunted Patient Cognition Impaired: No Speech Pattern: Clear Hallucinations: None Delusions: Not Present Thought Process: Goal Oriented Thought Content: positive for Goal Oriented Depressive Symptoms: Increased Anxiety, Feelings of Guilt and Unhappiness Judgement: Fair Medications Medications Current Medications Generic Name Dose Route Start Last Admin Trade Name Freq PRN Reason Stop Dose Admin Acetaminophen 650 mg 11/13/20 19:49 Acetaminophen 325 Mg Tablet PO Q6H PRN Pain, Mild (Pain Scale 1-3) Dicyclomine HCl 10 mg 11/13/20 19:49 Dicyclomine Hcl 10 Mg Capsule PO TID PRN Abdominal Pain Enoxaparin Sodium 40 mg 11/14/20 13:00 11/15/20 15:17 Enoxaparin Sodium 40 Mg/0.4 Ml Syringe SUBCUT 40 mg Q24H [facility] Administration Folic Acid 1 mg 11/14/20 09:00 11/15/20 08:11 Folic Acid 1 Mg Tablet PO 1 mg DAILY [facility] Administration Insulin Glargine 35 unit 11/15/20 21:00 Insulin Glargine,Hum.Rec.Anlog 100 Unit/Ml 10 Ml Vial SUBCUT BEDTIME [facility] Insulin Human Lispro 0 unit 11/13/20 19:49 11/15/20 11:48 Insulin Lispro 100 Unit/Ml 3 Ml Vial SUBCUT Not Given QIDACHS [facility] Protocol Insulin Human Lispro 8 unit 11/14/20 07:30 11/15/20 11:48 Insulin Lispro 100 Unit/Ml 3 Ml Vial SUBCUT Not Given TIDAC [facility] Lisinopril 20 mg 11/14/20 09:00 11/15/20 08:12 Lisinopril 20 Mg Tablet PO 20 mg DAILY [facility] Administration Protocol Magnesium Oxide 400 mg 11/15/20 17:30 Magnesium Oxide 400 Mg Tablet PO BIDPC [facility] Medication 1 each 11/13/20 09:00 No Benzodiazepines MISCELLANE DAILY [facility] Multivitamins/Vitamin C 1 tab 11/14/20 09:00 11/15/20 08:12 Multivitamin Tablet PO 1 tab DAILY [facility] Administration Naltrexone HCl 50 mg 11/15/20 13:40 11/15/20 15:22 Naltrexone Hcl 50 Mg Tablet PO 50 mg DAILY [facility] Administration Non-Formulary Medication 100 mg 11/14/20 09:00 Bupropion Hcl PO DAILY [facility] Omeprazole 20 mg 11/14/20 06:30 11/15/20 05:20 Omeprazole 20 Mg Capsule. PO 20 mg BID@0630,1630 [facility] Administration Ondansetron HCl 4 mg 11/13/20 19:49 Ondansetron Hcl 4 Mg/2 Ml Vial IVPUSH Q8H PRN Nausea and Vomiting Pharmacy Consult 1 each 11/13/20 05:58 Consult Rx Perform Med Rec MISCELLANE ONCE PRN Consult order Phenobarbital 15 mg 11/15/20 21:00 Phenobarbital 15 Mg Tablet PO 11/17/20 09:01 BID [facility] Phenobarbital 15 mg 11/17/20 21:00 Phenobarbital 15 Mg Tablet PO 11/18/20 21:01 BEDTIME [facility] Sodium Chloride 3 ml 11/14/20 00:00 11/15/20 15:22 0.9 % Sodium Chloride Flush 3 Ml Syringe IVFLUSH 3 ml QSHIFT [facility] Administration Sucralfate 1 gm 11/13/20 21:00 11/15/20 08:10 Sucralfate Oral Suspension 1 Gm/10 Ml Oral.Susp PO 1 gm BID [facility] Administration Thiamine HCl 100 mg 11/14/20 09:00 11/15/20 08:12 Thiamine Hcl 100 Mg Tablet PO 100 mg DAILY [facility] Administration Trazodone HCl 50 mg 11/13/20 21:00 11/14/20 21:27 Trazodone Hcl 50 Mg Tablet PO 50 mg BEDTIME [facility] Administration Allergies Allergies Allergy/AdvReac Type Severity Reaction Status Date / Time No Known Allergies Allergy Verified 09/20/20 07:19 Assessment & Plan Assessment & Plan (1) Alcohol use disorder, severe, dependence: Status: Acute Code(s): F10.20 - Alcohol dependence, uncomplicated Recommendations: plan to start naltrexone 50mg QD today and continue upon discharge Recovery support corrdinator has scheduled appt at [facility] for next week to continue MAT and follow up Greater than 50% of the session was spent on counseling and/or coordination of care PMFSH Past Medical History Medical History Alcoholism Depressed Diabetes Esophageal stricture Gastritis GIB (gastrointestinal bleeding) Head injury HTN (hypertension) Odynophagia Pancreatitis Seizures Family History Family History Father Diabetes Surgical History Surgical History History of esophagogastroduodenoscopy (EGD) Social History Social History Household Members: None Housing: Apartment Alcohol intake: current Alcohol intake frequency: 3 or more drinks per day Alcohol type: hard liquor Smoking Status: Never smoker Second Hand Smoke Exposure: No service: No Current occupational status: unemployed
[2020-11-15] MEDS: Magnesium Oxide 400 MG TABLET PO (16:50)
[2020-11-15 19:12] VITALS: BP 147/76; PULSE 91; RESP 18; TEMP 36.8; O2SAT 100
[2020-11-15 20:55] LABS: Glucose, Whole Blood 212 mg/dL (60-115)
[2020-11-15] MEDS: PHENobarbitaL 15 MG TABLET PO (21:21)
[2020-11-15] MEDS: traZODone HCL 50 MG TABLET PO (21:21)
[2020-11-15] MEDS: Insulin Glargine,Hum.rec.anlog 100 UNIT/ML 10 ML VIAL 35 UNIT SUBCUT (21:22)
[2020-11-16] VITALS: BP 128/68; PULSE 96; RESP 20; TEMP 37.1; O2SAT 98
[2020-11-16] MEDS: diphenhydrAMINE HCL 25 MG TABLET 50 MG PO (03:11)
[2020-11-16 03:12] VITALS: BP 138/70; PULSE 106; RESP 18; TEMP 36.9; O2SAT 99
[2020-11-16] MEDS: Omeprazole 20 MG CAPSULE.DR PO (06:04)
[2020-11-16 08:00] VITALS: BP 166/77; PULSE 78; RESP 18; TEMP 36.3; O2SAT 98
[2020-11-16 08:24] LABS: Glucose, Whole Blood 302 mg/dL (60-115)
[2020-11-16] MEDS: Insulin Lispro 100 UNIT/ML 3 ML VIAL 8 UNIT SUBCUT ×2 (10:29→13:09)
[2020-11-16] MEDS: Insulin Lispro 100 UNIT/ML 3 ML VIAL SUBCUT ×2 (10:29→13:08)
[2020-11-16] MEDS: Multivitamin TABLET 1 TAB PO (10:30)
[2020-11-16] MEDS: Folic Acid 1 MG TABLET PO (10:30)
[2020-11-16] MEDS: Magnesium Oxide 400 MG TABLET PO (10:30)
[2020-11-16] MEDS: PHENobarbitaL 15 MG TABLET PO (10:30)
[2020-11-16] MEDS: Thiamine HCL 100 MG TABLET PO (10:30)
[2020-11-16] MEDS: Naltrexone HCl 50 MG TABLET PO (10:30)
[2020-11-16] MEDS: 0.9 % Sodium Chloride Flush 3 ML SYRINGE IVFLUSH (10:31)
[2020-11-16 10:37] VITALS: BP 166/77; PULSE 78
[2020-11-16 11:03] VITALS: BP 164/77; PULSE 86; RESP 20; TEMP 36.6; O2SAT 99
[2020-11-16 11:14] LABS: Glucose, Whole Blood 289 mg/dL (60-115)
--- NOTE | 2020-11-16 11:42 | MHC.CM.PN ---
CM met with pt to discuss DC planning, Pt agreeable [facility]. Pt will DC home today with assisted services. pt will need a taxi
[2020-11-16] MEDS: Sucralfate Oral Suspension 1 GM/10 ML ORAL.SUSP PO (12:21)
[2020-11-16 13:53] LABS: Eosinophils Absolute Auto 0.3 X10*3/uL (0.0-0.4); Eosinophils Percent Auto 3.9 % (0-4); Hemoglobin 10.8 g/dl (14.0-18.0); Mean Corpuscular Hemoglobin 24.2 pg (27.0-33.0); PLT CLUMP 1; Red Cell Distribution Width 15.9 % (11.0-16.0); SCAN SMEAR FLAG 1
[2020-11-16 13:54] LABS: Basophils Absolute Auto 0.1 X10*3/uL (0.0-0.2); Basophils Percent Auto 0.6 % (0-2); Hematocrit 33.2 % (42-52); Imm Gran Abs Auto 0.05 X10*3/uL (0.00-0.03); Imm Gran Pct Auto 0.6 % (0.0-0.4); Lymphocytes Absolute Auto 1.5 X10*3/uL (1.2-4.9); Lymphocytes Percent Auto 17.5 % (20-40); MANUAL DIFF FLAG NO; Mean Corpuscular HGB Conc 32.5 g/dl (31.0-36.0); Mean Corpuscular Volume 74.4 fL (80-98); Mean Platelet Volume 10.5 fL (9.4-12.4); Monocytes Percent Auto 11.7 % (2-11); Neutrophils Absolute Auto 5.6 X10*3/uL (2.0-8.3); Neutrophils Percent Auto 65.7 % (45-73); Red Blood Count 4.46 X10*6/uL (4.60-5.80); White Blood Count 8.6 X10*3/uL (4.8-10.8)
[2020-11-16 14:17] LABS: Platelet Count 290 X10*3/uL (160-400)
[2020-11-16 14:27] LABS: Anion Gap 14 (12-20); Blood Urea Nitrogen 12 mg/dL (9-16); Calcium 8.5 mg/dL (8.4-10.2); Carbon Dioxide 25 mmol/L (22-29); Chloride 94 mmol/L (96-108); Creatinine Clr Calc Pharmacy 107.6; Estimated Glomerular Filt Rate > 60; Glucose Random 235 mg/dL (60-115); Magnesium 1.6 mg/dL (1.6-2.6); Phosphorus 2.3 mg/dL (2.7-4.5); Potassium 4.1 mmol/l (3.3-5.1); Sodium 129 mmol/L (135-145)
--- NOTE | 2020-11-16 15:17 | PM.CNCAR ---
History of Present Illness History of Present Illness Date of Service: 11/16/20 Requesting physician: Dereje Dang Chief complaint: DKA, gastritis, SVT Narrative: 55-year-old gentleman who is presenting with DKA because he ran out of insulin. He was also drinking alcohol for 2 days. He was noticed to have sinus tachycardia and runs of supraventricular tachycardia. He has been asymptomatic. He has no shortness of breath or chest discomfort. He is feeling better from the DKA point of view. He said it is not heavy drinker but recently was drinking heavily. Review of Systems Review of Systems: No chest pain or shortness of breath no palpitations. Yes all other systems are reviewed and are negative PMF Past Medical History Medical History (Updated 11/16/20 @ 16:12 by Dereje Dang MD) Alcoholism Depressed Diabetes Esophageal stricture Gastritis GIB (gastrointestinal bleeding) Head injury HTN (hypertension) Hypomagnesemia Hypophosphatemia Odynophagia Pancreatitis Seizures Supraventricular tachycardia Type 2 diabetes mellitus Family History Family History Father Diabetes Surgical History Surgical History History of esophagogastroduodenoscopy (EGD) Social History Social History Household Members: None Housing: Apartment Alcohol intake: current Alcohol intake frequency: 3 or more drinks per day Alcohol type: hard liquor Smoking Status: Never smoker Second Hand Smoke Exposure: No service: No Current occupational status: unemployed Meds Allergies Allergy/AdvReac Type Severity Reaction Status Date / Time No Known Allergies Allergy Verified 09/20/20 07:19 Home Medications Medication Instructions Recorded Confirmed Type bupropion HCl 100 mg PO DAILY 11/13/20 11/13/20 History dicyclomine 10 mg PO TID PRN 11/13/20 11/13/20 History folic acid 1 mg PO DAILY 11/13/20 11/13/20 History lisinopril 20 mg PO DAILY 11/13/20 11/13/20 History multivitamin 1 tab PO DAILY 11/13/20 11/13/20 History pantoprazole 40 mg PO BID@0630,1630 11/13/20 11/13/20 History thiamine HCl (vitamin B1) 100 mg PO DAILY 11/13/20 11/13/20 History trazodone 50 mg PO BEDTIME 11/13/20 11/13/20 History Physical Exam Vital Signs: Vital Signs: Last Vital Signs Temp 97.8 F 11/16/20 11:03 Pulse 86 11/16/20 11:03 Resp 20 11/16/20 11:03 BP 164/77 H 11/16/20 11:03 Pulse Ox 99 11/16/20 11:03 Body Mass Index 29.0 GENERAL APPEARANCE: in no acute distress, well developed, well nourished. HEENT: unremarkable. HEAD: normocephalic, atraumatic. NECK/THYROID: no carotid bruit, no jugular venous distention. SKIN: no suspicious lesions, warm and dry. HEART: no murmurs, regular rate and rhythm, S1, S2 normal. LUNGS: clear to auscultation bilaterally. ABDOMEN: normal, bowel sounds present, soft, nontender, nondistended. EXTREMITIES: no clubbing, cyanosis, or edema. PERIPHERAL PULSES: equal. NEUROLOGIC: nonfocal, alert and oriented. PSYCH: mood/affect full range. Results Labs and Meds Result diagrams: 11/16/20 13:36 11/16/20 13:36 Lab results: Laboratory Results - last 24 hr 11/15/20 11/15/20 11/16/20 16:30 20:40 08:16 WBC RBC Hgb Hct MCV MCH MCHC RDW Plt Count MPV Immature Gran % (Auto) Neut % (Auto) Lymph % (Auto) [place] % (Auto) Eos % (Auto) Baso % (Auto) Lymph # (Auto) [place] # (Auto) Eos # (Auto) Baso # (Auto) Abs Immat Gran (auto) Absolute Neuts (auto) Absolute Nucleated RBC Nucleated RBC % (auto) Sodium Potassium Chloride Carbon Dioxide Anion Gap BUN Creatinine Estim Creat Clear Calc Estimated GFR POC Glucose 346 H 212 H 302 H Random Glucose Calcium Phosphorus Magnesium 11/16/20 11/16/20 11/16/20 11:00 13:36 13:36 WBC 8.6 RBC 4.46 L Hgb 10.8 L Hct 33.2 L MCV 74.4 L MCH 24.2 L MCHC 32.5 RDW 15.9 Plt Count 290 MPV 10.5 Immature Gran % (Auto) 0.6 H Neut % (Auto) 65.7 Lymph % (Auto) 17.5 L [place] % (Auto) 11.7 H Eos % (Auto) 3.9 Baso % (Auto) 0.6 Lymph # (Auto) 1.5 [place] # (Auto) 1.0 Eos # (Auto) 0.3 Baso # (Auto) 0.1 Abs Immat Gran (auto) 0.05 H Absolute Neuts (auto) 5.6 Absolute Nucleated RBC 0.000 Nucleated RBC % (auto) 0.0 Sodium 129 L Potassium 4.1 D Chloride 94 L Carbon Dioxide 25 Anion Gap 14 BUN 12 D Creatinine 0.83 Estim Creat Clear Calc 107.6 Estimated GFR > 60 POC Glucose 289 H Random Glucose 235 H Calcium 8.5 D Phosphorus 2.3 L Magnesium 1.6 Assessment and Plan (1) Supraventricular tachycardia: Status: Acute 55-year-old gentleman with background of diabetes presented with diabetic ketoacidosis because he ran out of his insulin. He was also drink alcohol. He is doing much better now. He had some runs of supraventricular tachycardia on telemetry. He has a self-limiting. He had some electrolyte imbalances which were repeated already. I think he will benefit from low-dose beta-cher and recommend starting him on 25 mg twice a day of metoprolol tartrate. I do not think that he needs further testing inpatient. Thank you for allowing me to participate in the care of your patient. Please feel free to contact me if you have any questions.
--- NOTE | 2020-11-16 15:35 | P.F2F_ITS ---
Service Date Service Date: 11/16/20 Encounter Date of encounter: 11/16/20 Reasons for Services Reason for retirement: diabetic teaching, monitoring of unstable blood sugar, medication management, medication treatment and teach disease management MD Overseeing Care: Chula Dias Homebound: Leaving the home is medically contraindicated at this time without th e asist of a device and/or another person due th the listed conditions above and below. Reason homebound: unsteady gait / fall risk, poor balance / fall risk and w eakness related to hospital stay Homebound supporting statement: Mr Friedman was admitted to [facility] 11/13-11/16/20 for DKA not requiring ICU level of care as well as alcohol withdrawal Certification: Based on the above findings, I certify that this patient is confined to the home and needs intermittent retirement care, physical therapy and/or speech therapy, or continues to need occupational therapy. The patient is under my care, and I have initiated the establishment of the plan of care. The patient will be followed by a physician who will periodically review the plan of care.
--- NOTE | 2020-11-16 15:57 | PM.DS ---
DS: Providers Provider Date of Service: 11/16/20 Date of admission: 11/13/20 16:12 Primary care physician: OZZIE Vasquez, [facility] Consults: 11/14/20 12:38 Consult to Care Team Routine Comment: Reason for consultation: EtOH abuse and his left him 11/15/20 14:10 Consult to Cardiology Routine Consulting Provider: Maynor Salcedo Reason for consultation: SVT asymptomatic. here for EtOH withdrawal + DKA DS: Diagnosis Discharge Diagnosis (1) Alcohol use disorder, severe, dependence: Status: Acute (2) Hypomagnesemia: Status: Acute (3) Type 2 diabetes mellitus: Status: Acute (4) DKA (diabetic ketoacidoses): Status: Acute (5) RONN (acute kidney injury): Status: Acute (6) Alcohol abuse: Status: Acute (7) Supraventricular tachycardia: Status: Acute (8) Hypophosphatemia: Status: Acute DS: Medications Discharge Medications Home Medications: Home Medications Medication Instructions Recorded Confirmed bupropion HCl 100 mg PO DAILY 11/13/20 11/13/20 dicyclomine 10 mg PO TID PRN 11/13/20 11/13/20 folic acid 1 mg PO DAILY 11/13/20 11/13/20 lisinopril 20 mg PO DAILY 11/13/20 11/13/20 multivitamin 1 tab PO DAILY 11/13/20 11/13/20 pantoprazole 40 mg PO BID@0630,1630 11/13/20 11/13/20 thiamine HCl (vitamin B1) 100 mg PO DAILY 11/13/20 11/13/20 trazodone 50 mg PO BEDTIME 11/13/20 11/13/20 Previous Rx's Medication Instructions Recorded sucralfate 100 mg/mL oral 10 ml PO BID #420 ml 10/17/20 suspension Levemir FlexTouch U-100 Insuln 35 unit SUBCUT BEDTIME #4 ea 11/16/20 blood sugar diagnostic [OneTouch #100 ea 11/16/20 Ultra Blue Test Strip] blood-glucose meter [OneTouch #1 ea 11/16/20 Ultra2 Meter] insulin aspart U-100 [Novolog 8 unit SUBCUT TIDAC #3 ea 11/16/20 Flexpen U-100 Insulin] insulin glargine [Lantus U-100 35 unit SUBCUT BEDTIME #4 ea 11/16/20 Insulin] insulin lispro [Humalog U-100 8 unit SUBCUT TIDAC #3 ea 11/16/20 Insulin] lancets [OneTouch Delica Lancets] #100 ea 11/16/20 lancing device with lancets #1 ea 11/16/20 [OneTouch Delica Plus Lanc Dev] magnesium oxide 400 mg PO BID #60 cap 11/16/20 magnesium oxide 400 mg PO BIDPC #60 tab 11/16/20 naltrexone 50 mg PO DAILY #30 tab 11/16/20 naltrexone 50 mg PO DAILY #30 tab 11/16/20 pen needle, diabetic #100 ea 11/16/20 DS: Summary Hospital Course Hospital Course: from history and physical by admitting hospitalist ENGINEERING PROGRAM MANAGER Tonya Egan, 11/13/20: A 55-year-old man who is well known to the hospitalist, who presents after having a bingeing episode of alcohol last night with nausea and vomiting. He reports blood-tinged vomitus as well. He does have a history of diabetes and seems to be noncompliant with his medications. In the ER, initially, he had signs of DKA including anion gap of 31, sodium of 130, potassium 5.3, bicarb 12, and high urine glucose. He also had large acetone. All of this has seemed to resolve with initiation of IV fluid and IV insulin. The patient at this point is resting in bed. Denies any abdominal pain. No vomiting noted. His vital signs are stable. He has no fever or leukocytosis. He was noted to be mildly tachycardic and tachypneic. Urinalysis shows 1 to 4 wbc's with 2+ bacteria. Maybe mild UTI. The patient will be admitted for further management and treatment of DKA and alcohol withdrawal. Mr Friedman was admitted to the [facility]. DKA was attributed to insulin non-adherence due to personal/social problems. A1c was 9.8. He was restarted on basal/bolus insulin and prescribed glucometer, test strips, lancets, pen needles, and Lantus and Humalog pens. Leukocytosis was attributed to stress response; there was no evidence of infection. Acute kidney injury resolved after fluid hydration. Hypophosphatemia was repleted. He was started on magnesium repletion to be continued as an outpatient. For alcohol withdrawal, he was treated with phenobarbital taper. He expressed interest in maintaining sobriety and was started on naltrexone. He had occasional runs of asymptomatic supraventricular tachycardia and was seen by Cardiology. He was started on metoprolol and will follow-up with Cardiology as an outpatient. Time Spent with Patient Time attestation: Total time spent providing and/or coordinating discharge services: 45 Discharge coordination time: Greater than 30 minutes Physical Exam Vital Signs: Vital Signs: Last Vital Signs Temp 97.8 F 11/16/20 11:03 Pulse 86 11/16/20 11:03 Resp 20 11/16/20 11:03 BP 164/77 H 11/16/20 11:03 Pulse Ox 99 11/16/20 11:03 Body Mass Index 29.0 Gen: in no acute distress HEENT: sclera anicteric, moist mucus membranes Neck: supple Lungs: clear to auscultation bilaterally Heart: regular rate and rhythm, no murmurs Abd: soft, non-tender, non-distended Ext: no edema Skin: warm/well-perfused Neuro: alert and oriented x3, no focal findings Psych: appropriate affect DS: Data Data Completed and Pending Completed studies during hospitalization [Text1]: ITS Impressions Chest X-Ray 11/13/20 06:56 IMPRESSION: No evidence for acute disease in the chest. Labs on day of discharge: Laboratory Tests 11/13/20 11/13/20 11/13/20 04:38 04:38 04:38 WBC 25.5 H RBC 5.41 Hgb 12.8 L Hct 40.8 L MCV 75.4 L MCH 23.7 L MCHC 31.4 RDW 15.9 Plt Count 341 MPV 9.6 Immature Gran % (Auto) 0.7 H Neut % (Auto) 88.6 H Lymph % (Auto) 4.[address] [facility] % (Auto) 5.8 Eos % (Auto) 0.3 Baso % (Auto) 0.2 Lymph # (Auto) 1.[address] # (Auto) 1.5 H Eos # (Auto) 0.1 Baso # (Auto) 0.0 Abs Immat Gran (auto) 0.17 H Absolute Neuts (auto) 22.7 H Absolute Nucleated RBC 0.000 Nucleated RBC % (auto) 0.0 Smear Tech's Comments VERIFIED PT INR Sodium 128 L Potassium 4.6 Chloride 85 L Carbon Dioxide 17 L Anion Gap 31 H BUN 26 H Creatinine 1.50 H Estim Creat Clear Calc 59.5 Estimated GFR 49 POC Glucose Random Glucose 368 H* Estimat Average Glucose Hemoglobin A1c % Calcium 9.4 D Phosphorus Magnesium 1.9 Total Bilirubin 0.7 AST 31 ALT 21 Alkaline Phosphatase 131 H Total Protein 9.0 H Albumin 4.2 Lipase < 4 L Urine Color Urine Appearance Urine pH Ur Specific [place] Urine Protein Urine Glucose (UA) Urine Ketones Urine Blood Urine Nitrite Ur Leukocyte Esterase Urine RBC Urine WBC Ur Squamous Epith Cells Urine Bacteria Urine Mucus Urine Yeast Urine Opiates Screen Ur Barbiturates Screen Ur Phencyclidine Scrn Ur Amphetamines Screen U Benzodiazepines Scrn Urine Cocaine Screen U Marijuana (THC) Screen Ethyl Alcohol < 10 Acetone, Qual Large H COVID-19 ([facility]) COVIDExacter 11/13/20 11/13/20 11/13/20 04:38 04:59 04:59 WBC RBC Hgb Hct MCV MCH MCHC RDW Plt Count MPV Immature Gran % (Auto) Neut % (Auto) Lymph % (Auto) [facility] % (Auto) Eos % (Auto) Baso % (Auto) Lymph # (Auto) [facility] # (Auto) Eos # (Auto) Baso # (Auto) Abs Immat Gran (auto) Absolute Neuts (auto) Absolute Nucleated RBC Nucleated RBC % (auto) Smear Tech's Comments PT 11.5 INR 1.0 Sodium Potassium Chloride Carbon Dioxide Anion Gap BUN Creatinine Estim Creat Clear Calc Estimated GFR POC Glucose Random Glucose Estimat Average Glucose Hemoglobin A1c % Calcium Phosphorus Magnesium Total Bilirubin AST ALT Alkaline Phosphatase Total Protein Albumin Lipase Urine Color YELLOW Urine Appearance CLEAR Urine pH 5.5 Ur Specific [place] 1.025 Urine Protein 1+ H Urine Glucose (UA) >=1000 H Urine Ketones >=80 Urine Blood 1+ H Urine Nitrite NEG Ur Leukocyte Esterase NEG Urine RBC 0-2 Urine WBC 1-4 Ur Squamous Epith Cells 3+ Urine Bacteria 2+ Urine Mucus 2+ Urine Yeast 1+ Urine Opiates Screen Not Detected Ur Barbiturates Screen POSITIVE H Ur Phencyclidine Scrn Not Detected Ur Amphetamines Screen Not Detected U Benzodiazepines Scrn Not Detected Urine Cocaine Screen Not Detected U Marijuana (THC) Screen Not Detected Ethyl Alcohol Acetone, Qual COVID-19 ([facility]) COVIDExacter 11/13/20 11/13/20 11/13/20 07:01 07:14 07:55 WBC RBC Hgb Hct MCV MCH MCHC RDW Plt Count MPV Immature Gran % (Auto) Neut % (Auto) Lymph % (Auto) [facility] % (Auto) Eos % (Auto) Baso % (Auto) Lymph # (Auto) [facility] # (Auto) Eos # (Auto) Baso # (Auto) Abs Immat Gran (auto) Absolute Neuts (auto) Absolute Nucleated RBC Nucleated RBC % (auto) Smear Tech's Comments PT INR Sodium Potassium Chloride Carbon Dioxide Anion Gap BUN Creatinine Estim Creat Clear Calc Estimated GFR POC Glucose 337 H 265 H Random Glucose Estimat Average Glucose Hemoglobin A1c % Calcium Phosphorus Magnesium Total Bilirubin AST ALT Alkaline Phosphatase Total Protein Albumin Lipase Urine Color Urine Appearance Urine pH Ur Specific [place] Urine Protein Urine Glucose (UA) Urine Ketones Urine Blood Urine Nitrite Ur Leukocyte Esterase Urine RBC Urine WBC Ur Squamous Epith Cells Urine Bacteria Urine Mucus Urine Yeast Urine Opiates Screen Ur Barbiturates Screen Ur Phencyclidine Scrn Ur Amphetamines Screen U Benzodiazepines Scrn Urine Cocaine Screen U Marijuana (THC) Screen Ethyl Alcohol Acetone, Qual COVID-19 ([facility]) Negative COVID-19 Clin Com See Note 11/13/20 11/13/20 11/13/20 08:38 09:14 11:51 WBC RBC Hgb Hct MCV MCH MCHC RDW Plt Count MPV Immature Gran % (Auto) Neut % (Auto) Lymph % (Auto) [facility] % (Auto) Eos % (Auto) Baso % (Auto) Lymph # (Auto) [facility] # (Auto) Eos # (Auto) Baso # (Auto) Abs Immat Gran (auto) Absolute Neuts (auto) Absolute Nucleated RBC Nucleated RBC % (auto) Smear Tech's Comments PT INR Sodium 130 L Potassium 5.3 H Chloride 98 Carbon Dioxide 12 L Anion Gap 25 H BUN 22 H Creatinine 1.27 Estim Creat Clear Calc 70.3 Estimated GFR 59 POC Glucose 256 H 248 H Random Glucose 277 H Estimat Average Glucose Hemoglobin A1c % Calcium 7.8 L D Phosphorus Magnesium Total Bilirubin AST ALT Alkaline Phosphatase Total Protein Albumin Lipase Urine Color Urine Appearance Urine pH Ur Specific [place] Urine Protein Urine Glucose (UA) Urine Ketones Urine Blood Urine Nitrite Ur Leukocyte Esterase Urine RBC Urine WBC Ur Squamous Epith Cells Urine Bacteria Urine Mucus Urine Yeast Urine Opiates Screen Ur Barbiturates Screen Ur Phencyclidine Scrn Ur Amphetamines Screen U Benzodiazepines Scrn Urine Cocaine Screen U Marijuana (THC) Screen Ethyl Alcohol Acetone, Qual COVID-19 ([facility]) COVID-19 [employer] 11/13/20 11/13/20 11/13/20 12:51 13:57 13:58 WBC RBC Hgb Hct MCV MCH MCHC RDW Plt Count MPV Immature Gran % (Auto) Neut % (Auto) Lymph % (Auto) [facility] % (Auto) Eos % (Auto) Baso % (Auto) Lymph # (Auto) [facility] # (Auto) Eos # (Auto) Baso # (Auto) Abs Immat Gran (auto) Absolute Neuts (auto) Absolute Nucleated RBC Nucleated RBC % (auto) Smear Tech's Comments PT INR Sodium 131 L Potassium 4.2 D Chloride 102 Carbon Dioxide 19 L Anion Gap 14 BUN 17 H Creatinine 1.14 Estim Creat Clear Calc 78.3 Estimated GFR > 60 POC Glucose 223 H 198 H Random Glucose 204 H Estimat Average Glucose Hemoglobin A1c % Calcium 7.9 L Phosphorus Magnesium 1.8 Total Bilirubin AST ALT Alkaline Phosphatase Total Protein Albumin Lipase Urine Color Urine Appearance Urine pH Ur Specific [place] Urine Protein Urine Glucose (UA) Urine Ketones Urine Blood Urine Nitrite Ur Leukocyte Esterase Urine RBC Urine WBC Ur Squamous Epith Cells Urine Bacteria Urine Mucus Urine Yeast Urine Opiates Screen Ur Barbiturates Screen Ur Phencyclidine Scrn Ur Amphetamines Screen U Benzodiazepines Scrn Urine Cocaine Screen U Marijuana (THC) Screen Ethyl Alcohol Acetone, Qual COVID-19 ([facility]) COVID-19 [employer] 11/13/20 11/13/20 11/13/20 14:51 17:07 20:48 WBC RBC Hgb Hct MCV MCH MCHC RDW Plt Count MPV Immature Gran % (Auto) Neut % (Auto) Lymph % (Auto) [facility] % (Auto) Eos % (Auto) Baso % (Auto) Lymph # (Auto) [facility] # (Auto) Eos # (Auto) Baso # (Auto) Abs Immat Gran (auto) Absolute Neuts (auto) Absolute Nucleated RBC Nucleated RBC % (auto) Smear Tech's Comments PT INR Sodium Potassium Chloride Carbon Dioxide Anion Gap BUN Creatinine Estim Creat Clear Calc Estimated GFR POC Glucose 175 H 174 H 269 H Random Glucose Estimat Average Glucose Hemoglobin A1c % Calcium Phosphorus Magnesium Total Bilirubin AST ALT Alkaline Phosphatase Total Protein Albumin Lipase Urine Color Urine Appearance Urine pH Ur Specific [place] Urine Protein Urine Glucose (UA) Urine Ketones Urine Blood Urine Nitrite Ur Leukocyte Esterase Urine RBC Urine WBC Ur Squamous Epith Cells Urine Bacteria Urine Mucus Urine Yeast Urine Opiates Screen Ur Barbiturates Screen Ur Phencyclidine Scrn Ur Amphetamines Screen U Benzodiazepines Scrn Urine Cocaine Screen U Marijuana (THC) Screen Ethyl Alcohol Acetone, Qual COVID-19 ([facility]) COVID-19 [employer] 11/13/20 11/14/20 11/14/20 21:46 07:22 11:00 WBC RBC Hgb Hct MCV MCH MCHC RDW Plt Count MPV Immature Gran % (Auto) Neut % (Auto) Lymph % (Auto) [facility] % (Auto) Eos % (Auto) Baso % (Auto) Lymph # (Auto) [facility] # (Auto) Eos # (Auto) Baso # (Auto) Abs Immat Gran (auto) Absolute Neuts (auto) Absolute Nucleated RBC Nucleated RBC % (auto) Smear Tech's Comments PT INR Sodium 128 L Potassium 5.3 H D Chloride 99 Carbon Dioxide 11 L Anion Gap 23 H BUN 16 Creatinine 1.15 Estim Creat Clear Calc 77.6 Estimated GFR > 60 POC Glucose 269 H 297 H Random Glucose 277 H D Estimat Average Glucose Hemoglobin A1c % Calcium 7.9 L Phosphorus Magnesium Total Bilirubin AST ALT Alkaline Phosphatase Total Protein Albumin Lipase Urine Color Urine Appearance Urine pH Ur Specific [place] Urine Protein Urine Glucose (UA) Urine Ketones Urine Blood Urine Nitrite Ur Leukocyte Esterase Urine RBC Urine WBC Ur Squamous Epith Cells Urine Bacteria Urine Mucus Urine Yeast Urine Opiates Screen Ur Barbiturates Screen Ur Phencyclidine Scrn Ur Amphetamines Screen U Benzodiazepines Scrn Urine Cocaine Screen U Marijuana (THC) Screen Ethyl Alcohol Acetone, Qual COVID-19 ([facility]) COVID-19 [employer] 11/14/20 11/14/20 11/14/20 12:50 12:50 12:51 WBC Cancelled RBC Cancelled Hgb Cancelled Hct Cancelled MCV Cancelled MCH Cancelled MCHC Cancelled RDW Cancelled Plt Count Cancelled MPV Cancelled Immature Gran % (Auto) Cancelled Neut % (Auto) Cancelled Lymph % (Auto) Cancelled [facility] % (Auto) Cancelled Eos % (Auto) Cancelled Baso % (Auto) Cancelled Lymph # (Auto) Cancelled [facility] # (Auto) Cancelled Eos # (Auto) Cancelled Baso # (Auto) Cancelled Abs Immat Gran (auto) Cancelled Absolute Neuts (auto) Cancelled Absolute Nucleated RBC Cancelled Nucleated RBC % (auto) Cancelled Smear Tech's Comments PT INR Sodium Cancelled Potassium Cancelled Chloride Cancelled Carbon Dioxide Cancelled Anion Gap Cancelled BUN Cancelled Creatinine Cancelled Estim Creat Clear Calc Cancelled Estimated GFR Cancelled POC Glucose Random Glucose Cancelled Estimat Average Glucose Cancelled Hemoglobin A1c % Cancelled Calcium Cancelled Phosphorus Magnesium Total Bilirubin AST ALT Alkaline Phosphatase Total Protein Albumin Lipase Urine Color Urine Appearance Urine pH Ur Specific [place] Urine Protein Urine Glucose (UA) Urine Ketones Urine Blood Urine Nitrite Ur Leukocyte Esterase Urine RBC Urine WBC Ur Squamous Epith Cells Urine Bacteria Urine Mucus Urine Yeast Urine Opiates Screen Ur Barbiturates Screen Ur Phencyclidine Scrn Ur Amphetamines Screen U Benzodiazepines Scrn Urine Cocaine Screen U Marijuana (THC) Screen Ethyl Alcohol Acetone, Qual COVID-19 ([facility]) COVID-19 Clin Com 11/14/20 11/14/20 11/14/20 12:51 12:51 12:52 WBC Cancelled RBC Cancelled Hgb Cancelled Hct Cancelled MCV Cancelled MCH Cancelled MCHC Cancelled RDW Cancelled Plt Count Cancelled MPV Cancelled Immature Gran % (Auto) Cancelled Neut % (Auto) Cancelled Lymph % (Auto) Cancelled [facility] % (Auto) Cancelled Eos % (Auto) Cancelled Baso % (Auto) Cancelled Lymph # (Auto) Cancelled [facility] # (Auto) Cancelled Eos # (Auto) Cancelled Baso # (Auto) Cancelled Abs Immat Gran (auto) Cancelled Absolute Neuts (auto) Cancelled Absolute Nucleated RBC Cancelled Nucleated RBC % (auto) Cancelled Smear Tech's Comments PT INR Sodium 128 L Potassium 3.7 D Chloride 97 Carbon Dioxide 21 L Anion Gap 14 BUN 9 Creatinine 0.98 Estim Creat Clear Calc 91.1 Estimated GFR > 60 POC Glucose Random Glucose 289 H Estimat Average Glucose Hemoglobin A1c % Calcium 8.1 L Phosphorus 0.9 L* Magnesium Cancelled 1.5 L Total Bilirubin AST ALT Alkaline Phosphatase Total Protein Albumin Lipase Urine Color Urine Appearance Urine pH Ur Specific [place] Urine Protein Urine Glucose (UA) Urine Ketones Urine Blood Urine Nitrite Ur Leukocyte Esterase Urine RBC Urine WBC Ur Squamous Epith Cells Urine Bacteria Urine Mucus Urine Yeast Urine Opiates Screen Ur Barbiturates Screen Ur Phencyclidine Scrn Ur Amphetamines Screen U Benzodiazepines Scrn Urine Cocaine Screen U Marijuana (THC) Screen Ethyl Alcohol Acetone, Qual COVID-19 ([facility]) COVID-19 [employer] 11/14/20 11/14/20 11/14/20 16:20 16:20 16:42 WBC 20.5 H RBC 4.12 L D Hgb 10.0 L D Hct 30.3 L D MCV 73.5 L MCH 24.3 L MCHC 33.0 RDW 15.7 Plt Count 269 MPV 10.1 Immature Gran % (Auto) 0.8 H Neut % (Auto) 81.4 H Lymph % (Auto) 8.[address] [facility] % (Auto) 8.0 Eos % (Auto) 1.0 Baso % (Auto) 0.2 Lymph # (Auto) 1.8 [facility] # (Auto) 1.6 H Eos # (Auto) 0.2 Baso # (Auto) 0.1 Abs Immat Gran (auto) 0.16 H Absolute Neuts (auto) 16.7 H Absolute Nucleated RBC 0.030 H Nucleated RBC % (auto) 0.1 Smear Tech's Comments VERIFIED PT INR Sodium Potassium Chloride Carbon Dioxide Anion Gap BUN Creatinine Estim Creat Clear Calc Estimated GFR POC Glucose 161 H Random Glucose Estimat Average Glucose 235 Hemoglobin A1c % 9.8 Calcium Phosphorus Magnesium Total Bilirubin AST ALT Alkaline Phosphatase Total Protein Albumin Lipase Urine Color Urine Appearance Urine pH Ur Specific [place] Urine Protein Urine Glucose (UA) Urine Ketones Urine Blood Urine Nitrite Ur Leukocyte Esterase Urine RBC Urine WBC Ur Squamous Epith Cells Urine Bacteria Urine Mucus Urine Yeast Urine Opiates Screen Ur Barbiturates Screen Ur Phencyclidine Scrn Ur Amphetamines Screen U Benzodiazepines Scrn Urine Cocaine Screen U Marijuana (THC) Screen Ethyl Alcohol Acetone, Qual COVID-19 ([facility]) COVID-19 Clin Com 11/14/20 11/15/20 11/15/20 20:17 07:48 09:07 WBC 10.3 RBC 4.36 L Hgb 10.5 L Hct 31.8 L MCV 72.9 L MCH 24.1 L MCHC 33.0 RDW 15.6 Plt Count 278 MPV Not Reportable Immature Gran % (Auto) 1.4 H Neut % (Auto) 73.7 H Lymph % (Auto) 12.[address] % (Auto) 8.5 Eos % (Auto) 3.5 Baso % (Auto) 0.7 Lymph # (Auto) 1.3 [facility] # (Auto) 0.9 Eos # (Auto) 0.4 Baso # (Auto) 0.1 Abs Immat Gran (auto) 0.14 H Absolute Neuts (auto) 7.6 Absolute Nucleated RBC 0.030 H Nucleated RBC % (auto) 0.3 H Smear Tech's Comments VERIFIED PT INR Sodium Potassium Chloride Carbon Dioxide Anion Gap BUN Creatinine Estim Creat Clear Calc Estimated GFR POC Glucose 207 H 354 H* Random Glucose Estimat Average Glucose Hemoglobin A1c % Calcium Phosphorus Magnesium Total Bilirubin AST ALT Alkaline Phosphatase Total Protein Albumin Lipase Urine Color Urine Appearance Urine pH Ur Specific [place] Urine Protein Urine Glucose (UA) Urine Ketones Urine Blood Urine Nitrite Ur Leukocyte Esterase Urine RBC Urine WBC Ur Squamous Epith Cells Urine Bacteria Urine Mucus Urine Yeast Urine Opiates Screen Ur Barbiturates Screen Ur Phencyclidine Scrn Ur Amphetamines Screen U Benzodiazepines Scrn Urine Cocaine Screen U Marijuana (THC) Screen Ethyl Alcohol Acetone, Qual COVID-19 ([facility]IO) COVID-19 [employer] 11/15/20 11/15/20 11/15/20 09:07 11:32 16:30 WBC RBC Hgb Hct MCV MCH MCHC RDW Plt Count MPV Immature Gran % (Auto) Neut % (Auto) Lymph % (Auto) [facility] % (Auto) Eos % (Auto) Baso % (Auto) Lymph # (Auto) [facility] # (Auto) Eos # (Auto) Baso # (Auto) Abs Immat Gran (auto) Absolute Neuts (auto) Absolute Nucleated RBC Nucleated RBC % (auto) Smear Tech's Comments PT INR Sodium 130 L Potassium 3.4 Chloride 99 Carbon Dioxide 22 Anion Gap 12 BUN 7 L Creatinine 0.80 Estim Creat Clear Calc 111.6 Estimated GFR > 60 POC Glucose 68 346 H Random Glucose 256 H Estimat Average Glucose Hemoglobin A1c % Calcium 7.8 L Phosphorus 1.8 L Magnesium 1.5 L Total Bilirubin AST ALT Alkaline Phosphatase Total Protein Albumin Lipase Urine Color Urine Appearance Urine pH Ur Specific [place] Urine Protein Urine Glucose (UA) Urine Ketones Urine Blood Urine Nitrite Ur Leukocyte Esterase Urine RBC Urine WBC Ur Squamous Epith Cells Urine Bacteria Urine Mucus Urine Yeast Urine Opiates Screen Ur Barbiturates Screen Ur Phencyclidine Scrn Ur Amphetamines Screen U Benzodiazepines Scrn Urine Cocaine Screen U Marijuana (THC) Screen Ethyl Alcohol Acetone, Qual COVID-19 ([facility]IO) COVID-[place] 11/15/20 11/16/20 11/16/20 20:40 08:16 11:00 WBC RBC Hgb Hct MCV MCH MCHC RDW Plt Count MPV Immature Gran % (Auto) Neut % (Auto) Lymph % (Auto) [facility] % (Auto) Eos % (Auto) Baso % (Auto) Lymph # (Auto) [facility] # (Auto) Eos # (Auto) Baso # (Auto) Abs Immat Gran (auto) Absolute Neuts (auto) Absolute Nucleated RBC Nucleated RBC % (auto) Smear Tech's Comments PT INR Sodium Potassium Chloride Carbon Dioxide Anion Gap BUN Creatinine Estim Creat Clear Calc Estimated GFR POC Glucose 212 H 302 H 289 H Random Glucose Estimat Average Glucose Hemoglobin A1c % Calcium Phosphorus Magnesium Total Bilirubin AST ALT Alkaline Phosphatase Total Protein Albumin Lipase Urine Color Urine Appearance Urine pH Ur Specific [place] Urine Protein Urine Glucose (UA) Urine Ketones Urine Blood Urine Nitrite Ur Leukocyte Esterase Urine RBC Urine WBC Ur Squamous Epith Cells Urine Bacteria Urine Mucus Urine Yeast Urine Opiates Screen Ur Barbiturates Screen Ur Phencyclidine Scrn Ur Amphetamines Screen U Benzodiazepines Scrn Urine Cocaine Screen U Marijuana (THC) Screen Ethyl Alcohol Acetone, Qual COVID-19 ([facility]) COVID-19 Clin Com 11/16/20 11/16/20 13:36 13:36 WBC 8.6 RBC 4.46 L Hgb 10.8 L Hct 33.2 L MCV 74.4 L MCH 24.2 L MCHC 32.5 RDW 15.9 Plt Count 290 MPV 10.5 Immature Gran % (Auto) 0.6 H Neut % (Auto) 65.7 Lymph % (Auto) 17.[address] [facility] % (Auto) 11.7 H Eos % (Auto) 3.9 Baso % (Auto) 0.6 Lymph # (Auto) 1.5 [facility] # (Auto) 1.0 Eos # (Auto) 0.3 Baso # (Auto) 0.1 Abs Immat Gran (auto) 0.05 H Absolute Neuts (auto) 5.6 Absolute Nucleated RBC 0.000 Nucleated RBC % (auto) 0.0 Smear Tech's Comments PT INR Sodium 129 L Potassium 4.1 D Chloride 94 L Carbon Dioxide 25 Anion Gap 14 BUN 12 D Creatinine 0.83 Estim Creat Clear Calc 107.6 Estimated GFR > 60 POC Glucose Random Glucose 235 H Estimat Average Glucose Hemoglobin A1c % Calcium 8.5 D Phosphorus 2.3 L Magnesium 1.6 Total Bilirubin AST ALT Alkaline Phosphatase Total Protein Albumin Lipase Urine Color Urine Appearance Urine pH Ur Specific [place] Urine Protein Urine Glucose (UA) Urine Ketones Urine Blood Urine Nitrite Ur Leukocyte Esterase Urine RBC Urine WBC Ur Squamous Epith Cells Urine Bacteria Urine Mucus Urine Yeast Urine Opiates Screen Ur Barbiturates Screen Ur Phencyclidine Scrn Ur Amphetamines Screen U Benzodiazepines Scrn Urine Cocaine Screen U Marijuana (THC) Screen Ethyl Alcohol Acetone, Qual COVID-19 ([facility]) COVID-19 Clin Com Discharge Plan Discharge Anticipated Discharge Date/Time: 11/16/20 14:44 Patient Disposition: Home Health Service Referrals: Crow Garces MD [Physician] - (alcohol use disorder) Chula Dias NP [Nurse Practitioner] - 1 Week (TELE VISIT: 11/18/2020 1:30pm Chula Dias will call you to discuss your hospital stay.) Maynor Salcedo MD [Physician] - Discharge Medications: New naltrexone 50 mg Tablet 50 mg PO DAILY Qty: 30 RF: 0 magnesium oxide 400 mg (241.3 mg magnesium) Tablet 400 mg PO BIDPC Qty: 60 RF: 0 (DME) blood-glucose meter [OneTouch Ultra2 Meter] Kit See Rx Instructions .ROUTE .MEDSUPPLY Qty: 1 RF: 0 (DME) OneTouch Ultra Blue Test Strip Strip See Rx Instructions .ROUTE .MEDSUPPLY Qty: 100 RF: 0 (DME) lancing device with lancets [OneTouch Delica Plus Lanc Dev] Kit See Rx Instructions .ROUTE .MEDSUPPLY Qty: 1 RF: 0 (DME) lancets [OneTouch Delica Lancets] 33 gauge misc See Rx Instructions .ROUTE .MEDSUPPLY Qty: 100 RF: 0 (DME) pen needle, diabetic 32 gauge x 5/32 needle See Rx Instructions .ROUTE .MEDSUPPLY Qty: 100 RF: 0 Lantus U-100 Insulin 100 unit/mL Solution 35 unit subcut BEDTIME Qty: 4 RF: 0 insulin lispro [Humalog U-100 Insulin] 100 unit/mL Solution 8 unit subcut TIDAC Qty: 3 RF: 0 magnesium oxide 400 mg magnesium capsule 400 mg PO BID Qty: 60 RF: 0 naltrexone 50 mg tablet 50 mg PO DAILY Qty: 30 RF: 0 metoprolol tartrate 25 mg tablet 25 mg PO BID Qty: 60 RF: 0 Continued sucralfate [Carafate] 100 mg/mL suspension 10 ml PO BID Qty: 420 RF: 0 multivitamin Tablet 1 tab PO DAILY RF: 0 trazodone 50 mg Tablet 50 mg PO BEDTIME RF: 0 thiamine HCl (vitamin B1) 100 mg Tablet 100 mg PO DAILY RF: 0 bupropion HCl 100 mg Tablet Sustained-Release 12 Hr 100 mg PO DAILY RF: 0 folic acid 1 mg Tablet 1 mg PO DAILY RF: 0 dicyclomine 10 mg Capsule 10 mg PO TID PRN (Reason: Abdominal Pain) RF: 0 pantoprazole 40 mg tablet,delayed release (DR/EC) 40 mg PO BID@0630,1630 RF: 0 lisinopril 20 mg Tablet 20 mg PO DAILY RF: 0 Discontinued insulin aspart U-100 [Novolog Flexpen U-100 Insulin] 100 unit/mL (3 mL) Insulin Pen 8 unit SUBCUT TIDAC RF: 0 Levemir FlexTouch U-100 Insuln 100 unit/mL (3 mL) insulin pen 35 unit subcut BEDTIME RF: 0 Discharge Orders: Discharge Order (Routine); Ordered 11/16/20 Ordered By: Dereje Dang Diet: diabetic diet Activity on Discharge: no alcohol Patient Instructions: Metoprolol (By mouth), Diabetic Ketoacidosis (DC), Abuse of Alcohol (DC), Alcohol Dependence (DC), Type 2 Diabetes Management for Adults (DC) Stand Alone Forms: Community Support Other Ambulatory Orders: Comprehensive Met. Panel (Routine) Timeframe: 1 Week Facility: [facility] - Location: Laboratory Ordered By: Dereje Dang Magnesium (Routine) Timeframe: 1 Week Facility: [facility] - Location: Laboratory Ordered By: Dereje Dang Visit Report Forms: Patient Portal Discharge page Care Plan Goals: abstinence from alcohol control of diabetes avoidance of disease and hospitalization Health Concerns: alcohol use disorder uncontrolled type 2 diabetes with diabetic ketoacidosis low magnesium supraventricular tachycardia Plan of Treatment: take naltrexone 50 mg daily. avoid alcohol. consider referral to Alcohol Use Disorder program at [facility] take your insulin as prescribed- 35 units of Levemir at bedtime, 8 units of Novlog with meals. avoid sugar and simple carbohdyrates. take magnesium 400 mg twice daily. take metoprolol tartrate 25 mg twice daily. follow up with [facility] in 2-3 weeks: [phone] [place] [address] Drive, [address] [place] [address] recheck lab studies in 1-2 weeks
--- NOTE | 2020-11-16 16:35 | MHC.CM.PN ---
PT BEING DISCHARGED HOME TODAY WITH [facility]. TAXI VOUCHER PROVIDED
== END 2020-11-16 17:35 | disposition home health service (06) | DRG 420 ==
LOC: HO.ED 07:23 → HO.IMC 18:26
PROVIDERS: Nurse Practitioner Acute Care; Student in an Organized Health Care Education/Training Program; Admitting Provider Family Medicine; Emergency Provider Emergency Medicine; PCP Nurse Practitioner Family; Visit Provider Family Medicine
DX: E11.10 Type 2 diabetes mellitus with ketoacidosis without coma (principal); E83.39 Other disorders of phosphorus metabolism; E83.42 Hypomagnesemia; E87.1 Hypo-osmolality and hyponatremia; E87.5 Hyperkalemia; F39 Unspecified mood [affective] disorder; E86.0 Dehydration; K29.20 Alcoholic gastritis without bleeding; F10.239 Alcohol dependence with withdrawal, unspecified; I47.1 Supraventricular tachycardia; I10 Essential (primary) hypertension; Z91.14 Patient's other noncompliance with medication regimen; F32.9 Major depressive disorder, single episode, unspecified; Z20.828 Contact with and (suspected) exposure to other viral communicable diseases; Z79.4 Long term (current) use of insulin; Z79.899 Other long term (current) drug therapy
CPT/HCPCS: 36415; 71045; 80048; 80053; 80307; 80320; 81001; 82009; 82947; 83036; 83690; 83735; 84100; 85025; 85610; 87635; 93005; 99285; J1650; J2405; J2560; J3475; Q0163

== ENCOUNTER 2020-11-22 13:22 | Outpatient (REF) | payer MEDICAID, SELFPAY ==
[2020-11-22 14:36] LABS: Alanine Aminotransferase 21 U/L (0-40); Albumin Level 3.6 g/dL (3.5-5.0); Alkaline Phosphatase 85 U/L (39-117); Anion Gap 15 (12-20); Aspartate Amino Transferase 23 U/L (5-37); Bilirubin Total 0.2 mg/dL (0.0-1.0); Blood Urea Nitrogen 23 mg/dL (9-16); Calcium 8.7 mg/dL (8.4-10.2); Carbon Dioxide 23 mmol/L (22-29); Chloride 95 mmol/L (96-108); Estimated Glomerular Filt Rate > 60; Glucose Random 575 mg/dL (60-115); Magnesium 1.8 mg/dL (1.6-2.6); Potassium 5.7 mmol/l (3.3-5.1); Sodium 127 mmol/L (135-145); Total Protein 7.4 g/dL (6.5-8.0)
== END 2020-11-22 13:23 | disposition home or self-care (01) ==
LOC: HO.LNP 13:22
PROVIDERS: Visit Provider Internal Medicine Geriatric Medicine
DX: E11.9 Type 2 diabetes mellitus without complications (principal)
CPT/HCPCS: 80053; 83735

== ENCOUNTER → 2020-12-05 09:34 | Outpatient (BNVA) | payer MEDICAID, SELFPAY | PROVIDERS: PCP Emergency Medicine; Visit Provider Physician Assistant | DX: K22.2 Esophageal obstruction (principal) | CPT/HCPCS: 99212 ==

== ENCOUNTER → 2020-12-09 09:43 | Outpatient (BNVA) | payer MEDICAID, SELFPAY | PROVIDERS: Visit Provider Internal Medicine Cardiovascular Disease | DX: I47.1 Supraventricular tachycardia (principal) | CPT/HCPCS: 93005; 99212 ==

== ENCOUNTER 2020-12-11 10:45 | Observation (INO) | payer MEDICAID, SELFPAY ==
--- NOTE | ~2020-12-11 | CT_ITS ---
EXAMINATION: CT CHEST, ABDOMEN AND PELVIS WITH IV CONTRAST CLINICAL INFORMATION: Dysphagia. Esophageal stricture. COMPARISON: Previous CT of the abdomen and pelvis most recent February 2020 and previous chest x-ray 11/13/2020 TECHNIQUE: Axial images through the chest, abdomen and pelvis following oral and 85 mL Omnipaque 350 intravenous contrast. Sagittal and coronal reconstructions on the technologist workstation were performed. Patient dose 3 7 7 mg/cm FINDINGS: Chest: There is a 3 x 4 mm right upper lobe nodule axial image 127 series 9. There is a 2 mm peripheral or subpleural right middle lobe nodule axial image 343 series 9. There are 2 adjacent air collections in the right superior mediastinum in the tracheoesophageal groove measuring less than 1 cm axial image 11 and 13 series 5. These may be related to tracheal diverticuli. Given history of recent endoscopy, post procedural air cannot be excluded and clinical correlation is recommended. The thyroid gland is unremarkable. There is wall thickening of the distal thoracic esophagus extending to the GE junction/proximal stomach. A discrete mass is not appreciated. There is an enlarged posterior mediastinal lymph nodes posterior to the right side of the esophagus. This measures 1.2 x 1.8 x 3.3 cm in AP transverse and longitudinal dimension. There are smaller subcarinal mediastinal lymph nodes. The heart does not appear enlarged. There is no pericardial effusion. The thoracic aorta is normal in caliber. There is no pleural effusion or pleural thickening. There are small bilateral axillary lymph nodes. No chest wall mass or enlarged axillary lymph nodes are seen. Abdomen and pelvis: The liver is unremarkable. The gallbladder is contracted. The gallbladder wall appears slightly thickened however this may be related to contracted state. There is no biliary duct dilatation. The spleen is unremarkable. There are extensive calcifications in the pancreas suggestive of chronic pancreatitis. The pancreas appears atrophic. There is dilatation of the main pancreatic duct in the head and neck of the pancreas measuring up to 1.2 cm. There is a probable stones in the main pancreatic duct, largest measuring 1 cm. Adrenal glands and kidneys are unremarkable. The bladder is unremarkable. The prostate gland is unremarkable. There is stool throughout the colon questionable for constipation. Small and large bowel is otherwise unremarkable. The appendix is unremarkable. There is wall thickening of the distal thoracic esophagus and GE junction. Again, a discrete mass is not appreciated. There are small lymph nodes seen in the gastrohepatic region, largest measuring 5 to 6 mm. There are small periportal lymph nodes. There are small peripancreatic lymph nodes. There are small upper abdominal retroperitoneal lymph nodes. There is no ascites. There is a small umbilical hernia containing fat. Vascular structures are unremarkable. Review at bone windows demonstrates degenerative changes of the spine and hip joints. There is slight loss of height of the T12, L2 and L4 vertebral bodies questionable for Schmorl's nodes versus mild compression old fractures. No suspicious bone lesion is seen. CT/CT abdomen pelvis w con IMPRESSION: Chest: Wall thickening of the distal thoracic esophagus, GE junction and proximal stomach. A discrete esophageal mass is not appreciated. Enlarged posterior mediastinal lymph node posterior to the right side of the lower thoracic esophagus. Smaller subcarinal mediastinal lymph nodes. 2 small less than 1 cm air collections in the right mediastinum in the tracheoesophageal groove region. This may represent small tracheal diverticuli. Given recent endoscopy, post procedural air cannot be excluded. Abdomen and pelvis: Small gastrohepatic space, peripancreatic, periportal and upper abdominal retroperitoneal lymph nodes. No enlarged lymph nodes seen. Contracted gallbladder. Changes of chronic pancreatitis. Dilatation of the main pancreatic duct up to 1 .2 cm in the head and neck of the pancreas and probable pancreatic duct stones. Findings will be communicated to Dr. Plaza by the [place] work flow corn grinder Cynthia Raines.
[2020-12-11 11:53] VITALS: BP 158/92; PULSE 84; RESP 16; TEMP 37; O2SAT 99; BMI 21.2
--- NOTE | 2020-12-11 11:55 | ED_ITS ---
HPI - Abdominal Pain General Chief Complaint: Abdominal Pain Stated Complaint: abd pain Time Seen by Provider: 12/11/20 11:54 Source: patient Mode of arrival: ambulatory Limitations: no limitations History of Present Illness HPI narrative: Patient with long history of DM and has had gastritis. Patient has been unable to eat, has had a lot of weight loss. He has esophageal strictures and has not been able to eat in the morning. MD elicited complaint: abdominal pain Pertinent past history: gastritis Onset (ago): month(s) Pain Consistency: intermittent Location: epigastric Severity: moderate Quality: burning Radiation: none Exacerbating factors: eating Relieving factors: other (belching) Associated symptoms: nausea and vomiting Related Data Home Medications Medication Instructions Recorded Confirmed bupropion HCl 100 mg PO DAILY 11/13/20 11/13/20 dicyclomine 10 mg PO TID PRN 11/13/20 11/13/20 folic acid 1 mg PO DAILY 11/13/20 11/13/20 lisinopril 20 mg PO DAILY 11/13/20 11/13/20 multivitamin 1 tab PO DAILY 11/13/20 11/13/20 pantoprazole 40 mg PO BID@0630,1630 11/13/20 11/13/20 thiamine HCl (vitamin B1) 100 mg PO DAILY 11/13/20 11/13/20 trazodone 50 mg PO BEDTIME 11/13/20 11/13/20 Previous Rx's Medication Instructions Recorded sucralfate 100 mg/mL oral 10 ml PO BID #420 ml 10/17/20 suspension blood sugar diagnostic [OneTouch #100 ea 11/16/20 Ultra Blue Test Strip] blood-glucose meter [OneTouch #1 ea 11/16/20 Ultra2 Meter] insulin glargine [Lantus U-100 35 unit SUBCUT BEDTIME #4 ea 11/16/20 Insulin] insulin lispro [Humalog U-100 8 unit SUBCUT TIDAC #3 ea 11/16/20 Insulin] lancets [IconfinderTouch Delica Lancets] #100 ea 11/16/20 lancing device with lancets #1 ea 11/16/20 [OneTouch Delica Plus Lanc Dev] magnesium oxide 400 mg PO BID #60 cap 11/16/20 magnesium oxide 400 mg PO BIDPC #60 tab 11/16/20 metoprolol tartrate 25 mg PO BID #60 tab 11/16/20 naltrexone 50 mg PO DAILY #30 tab 11/16/20 naltrexone 50 mg PO DAILY #30 tab 11/16/20 pen needle, diabetic #100 ea 11/16/20 simethicone 125 mg chewable tablet 125 mg PO TID-QID PRN #90 tab 12/05/20 ondansetron 4 mg disintegrating 4 mg PO Q8H PRN #30 tab 12/10/20 tablet sucralfate [Carafate] 10 ml PO BID #420 ml 12/11/20 Allergies Allergy/AdvReac Type Severity Reaction Status Date / Time No Known Allergies Allergy Verified 12/11/20 12:04 Review of Systems Constitutional: Reports no additional constitutional complaints Eyes: Reports no additional eye complaints Denies dizziness Cardiovascular: Reports no additional cardiovascular complaints Respiratory: Reports as per HPI Gastrointestinal: Reports no additional gastrointestinal complaints Musculoskeletal: Reports no additional musculoskeletal complaints Skin/Breast: Denies rash Reports system reviewed and no additional complaints, except as documented, Denies dizziness and Denies Sensory deficit (Neuro) Psychiatric: Denies anxiety Physical Exam Vital Signs: Vital Signs: Last Vital Signs Temp 98.8 F 12/11/20 14:39 Pulse 79 12/11/20 14:39 Resp 16 12/11/20 14:39 BP 130/64 12/11/20 14:39 Pulse Ox 100 12/11/20 14:39 Body Mass Index 21.2 Const: General: healthy appearing Nutritional Appearance: average body habitus Orientation/consciousness: oriented to person and patient oriented x3 Limitations: no limitations HENMT: Head: Yes normal to inspection Ears: external ears normal General nose exam: Normal external nose present Mouth: Normal oral and palatal muc lynn present and oropharynx normal Throat: Yes posterior oropharynx normal Eyes: General: appearance normal, both eyes and all related structures Neck: Other: supple Neck: Yes normal visual inspection Chest: Chest palpation & inspection: normal inspection of the chest Resp: Auscultation: clear to auscultation bilaterally Cardio: Jugular venous distension: no JVD Rate: regular rate Rhythm: regular rhythm Heart sounds: S1 normal heart sound present and S2 normal heart sound present GI: Inspection: Yes normal to inspection Palpation (GI): Soft to palpation, nontender and No hepatosplenomegaly present Auscultation: normal bowel sounds : General: Yes no CVA tenderness Back/Spine/Pelvis: Back: no CVA tenderness Skin: General skin exam: no rashes or lesions noted Neuro: General: oriented to person and patient oriented x3 Cranial nerves: Yes CN's II-XII intact bilaterally Motor exam (neuro): 5/5 motor strength present throughout Sensory Exam: No Sensory deficit (Neuro) Extrem: General: Yes normal to inspection Psych: Appearance: grossly normal MDM - Abdominal Pain Differential Diagnosis Differential diagnosis: Likely abdominal pain and gastritis Differential diagnosis narrative:: esophageal stricture Lab Data Result diagrams: 12/11/20 13:11 12/11/20 13:49 Labs: Lab Results 12/11/20 12/11/20 Range/Units 13:11 13:49 WBC 9.6 (4.8-10.8) X10*3/uL RBC 5.02 (4.60-5.80) X10*6/uL Hgb 11.9 L (14.0-18.0) g/dl Hct 38.7 L (42-52) % MCV 77.1 L (80-98) fL MCH 23.7 L (27.0-33.0) pg MCHC 30.7 L (31.0-36.0) g/dl RDW 16.3 H (11.0-16.0) % Plt Count 341 (160-400) X10*3/uL MPV 10.4 (9.4-12.4) fL Immature Gran % (Auto) 0.3 (0.0-0.4) % Neut % (Auto) 72.4 (45-73) % Lymph % (Auto) 17.3 L (20-40) % Ness % (Auto) 7.2 (2-11) % Eos % (Auto) 2.3 (0-4) % Baso % (Auto) 0.5 (0-2) % Lymph # (Auto) 1.7 (1.2-4.9) X10*3/uL Ness # (Auto) 0.7 (0.1-1.2) X10*3/uL Eos # (Auto) 0.2 (0.0-0.4) X10*3/uL Baso # (Auto) 0.1 (0.0-0.2) X10*3/uL Abs Immat Gran (auto) 0.03 (0.00-0.03) X10*3/uL Absolute Neuts (auto) 7.0 (2.0-8.3) X10*3/uL Absolute Nucleated RBC 0.000 (0.0-0.012) X10*3/uL Nucleated RBC % (auto) 0.0 (0.0-0.2) /100WBC Sodium 133 L (135-145) mmol/L Potassium 4.7 (3.3-5.1) mmol/L Chloride 100 (96-108) mmol/L Carbon Dioxide 25 (22-29) mmol/L Anion Gap 13 (12-20) BUN 18 H (9-16) mg/dL Creatinine 0.96 (0.5-1.4) mg/dL Estim Creat Clear Calc 78.0 Estimated GFR > 60 Random Glucose 274 H D (60-115) mg/dL Calcium 9.4 D (8.4-10.2) mg/dL Total Bilirubin 0.2 (0.0-1.0) mg/dL Direct Bilirubin < 0.2 (0.0-0.5) mg/dL AST 19 (5-37) U/L ALT 13 (0-40) U/L Alkaline Phosphatase 82 (39-117) U/L Total Protein 7.6 (6.5-8.0) g/dL Albumin 3.7 (3.5-5.0) g/dL Lipase < 4 L (8-78) U/L Discharge Plan Discharge Clinical Impression: Esophageal stricture, Gastritis and duodenitis Patient Disposition: Home, Self-Care Instructions: Gastritis (ED), Esophageal Stricture (ED), Esophagitis (ED) Prescriptions: New sucralfate [Carafate] 100 mg/mL suspension 10 ml PO BID Qty: 420 RF: 0 No Action sucralfate [Carafate] 100 mg/mL suspension 10 ml PO BID Qty: 420 RF: 0 ondansetron 4 mg tablet,disintegrating 4 mg PO Q8H PRN (Reason: nausea and vomiting) Qty: 30 RF: 0 multivitamin Tablet 1 tab PO DAILY RF: 0 trazodone 50 mg Tablet 50 mg PO BEDTIME RF: 0 thiamine HCl (vitamin B1) 100 mg Tablet 100 mg PO DAILY RF: 0 bupropion HCl 100 mg Tablet Sustained-Release 12 Hr 100 mg PO DAILY RF: 0 folic acid 1 mg Tablet 1 mg PO DAILY RF: 0 dicyclomine 10 mg Capsule 10 mg PO TID PRN (Reason: Abdominal Pain) RF: 0 pantoprazole 40 mg tablet,delayed release (DR/EC) 40 mg PO BID@0630,1630 RF: 0 lisinopril 20 mg Tablet 20 mg PO DAILY RF: 0 naltrexone 50 mg Tablet 50 mg PO DAILY Qty: 30 RF: 0 magnesium oxide 400 mg (241.3 mg magnesium) Tablet 400 mg PO BIDPC Qty: 60 RF: 0 (DME) blood-glucose meter [AccessPay Ultra2 Meter] Kit See Rx Instructions .ROUTE .MEDSUPPLY Qty: 1 RF: 0 (DME) IconfinderTouch Ultra Blue Test Strip Strip See Rx Instructions .ROUTE .MEDSUPPLY Qty: 100 RF: 0 (DME) lancing device with lancets [AccessPay Delica Plus Lanc Dev] Kit See Rx Instructions .ROUTE .MEDSUPPLY Qty: 1 RF: 0 (DME) lancets [AccessPay Delica Lancets] 33 gauge misc See Rx Instructions .ROUTE .MEDSUPPLY Qty: 100 RF: 0 (DME) pen needle, diabetic 32 gauge x 5/32 needle See Rx Instructions .ROUTE .MEDSUPPLY Qty: 100 RF: 0 Lantus U-100 Insulin 100 unit/mL Solution 35 unit subcut BEDTIME Qty: 4 RF: 0 insulin lispro [Humalog U-100 Insulin] 100 unit/mL Solution 8 unit subcut TIDAC Qty: 3 RF: 0 magnesium oxide 400 mg magnesium capsule 400 mg PO BID Qty: 60 RF: 0 naltrexone 50 mg tablet 50 mg PO DAILY Qty: 30 RF: 0 metoprolol tartrate 25 mg tablet 25 mg PO BID Qty: 60 RF: 0 simethicone [Gas Relief (simethicone)] 125 mg tablet,chewable 125 mg PO TID-QID PRN (Reason: abdominal distention) Qty: 90 RF: 2 PMFSH Past Medical History Medical History Acute alcoholic gastritis Alcohol use disorder, severe, dependence Alcoholism Depressed Diabetes Esophageal stricture Gastritis GIB (gastrointestinal bleeding) Head injury HTN (hypertension) Hypomagnesemia Hypophosphatemia Odynophagia Pancreatitis Seizures Supraventricular tachycardia Type 2 diabetes mellitus Surgical History History of esophagogastroduodenoscopy (EGD) Family History Family History Father Diabetes Social History Social History Household Members: Significant Other and None Housing: Apartment Alcohol intake: former Year quit: 1 mo Smoking Status: Never smoker Second Hand Smoke Exposure: No Advance Directives: No Advance Directives Information Provided: No service: No Current occupational status: unemployed and disabled
[2020-12-11] MEDS: PHENobarb/Hyoscy/Atropine/Scop 10 ML ELIXIR PO (12:33)
[2020-12-11] MEDS: Lidocaine HCl Viscous 2 % 15 ML SOLUTION MUCOUS MEM (12:33)
[2020-12-11] MEDS: Magnesium Hydrox/Alum Hydrox 30 ML ORAL.SUSP PO (12:33)
--- NOTE | 2020-12-11 12:35 | PC.NURSE ---
PT DIFFICULT STICK. HX OF THE SAME. E [employer] ARCHITECT DONNA AGREED TO PLACE IV WITH US GUIDANCE.
[2020-12-11 12:41] VITALS: BP 106/67; PULSE 68; RESP 10; O2SAT 95
[2020-12-11 13:18] LABS: MANUAL DIFF FLAG NO
[2020-12-11 13:21] LABS: Basophils Absolute Auto 0.1 X10*3/uL (0.0-0.2); Basophils Percent Auto 0.5 % (0-2); Eosinophils Absolute Auto 0.2 X10*3/uL (0.0-0.4); Eosinophils Percent Auto 2.3 % (0-4); Hematocrit 38.7 % (42-52); Hemoglobin 11.9 g/dl (14.0-18.0); Imm Gran Abs Auto 0.03 X10*3/uL (0.00-0.03); Imm Gran Pct Auto 0.3 % (0.0-0.4); Lymphocytes Absolute Auto 1.7 X10*3/uL (1.2-4.9); Lymphocytes Percent Auto 17.3 % (20-40); Mean Corpuscular HGB Conc 30.7 g/dl (31.0-36.0); Mean Corpuscular Hemoglobin 23.7 pg (27.0-33.0); Mean Corpuscular Volume 77.1 fL (80-98); Mean Platelet Volume 10.4 fL (9.4-12.4); Monocytes Absolute Auto 0.7 X10*3/uL (0.1-1.2); Monocytes Percent Auto 7.2 % (2-11); Neutrophils Percent Auto 72.4 % (45-73); Platelet Count 341 X10*3/uL (160-400); Red Blood Count 5.02 X10*6/uL (4.60-5.80); Red Cell Distribution Width 16.3 % (11.0-16.0); White Blood Count 9.6 X10*3/uL (4.8-10.8)
[2020-12-11] MEDS: Pantoprazole Sodium 40 MG/10 ML VIAL IVPUSH (13:29)
[2020-12-11] MEDS: 0.9 % Sodium Chloride 1,000 ML 200 ML IVCONT (13:30)
[2020-12-11] MEDS: Sucralfate Oral Suspension 1 GM/10 ML ORAL.SUSP PO (13:53)
[2020-12-11 14:29] LABS: Alanine Aminotransferase 13 U/L (0-40); Albumin Level 3.7 g/dL (3.5-5.0); Alkaline Phosphatase 82 U/L (39-117); Anion Gap 13 (12-20); Aspartate Amino Transferase 19 U/L (5-37); Blood Urea Nitrogen 18 mg/dL (9-16); Calcium 9.4 mg/dL (8.4-10.2); Carbon Dioxide 25 mmol/L (22-29); Chloride 100 mmol/L (96-108); Estimated Glomerular Filt Rate > 60; Glucose Random 274 mg/dL (60-115); Potassium 4.7 mmol/L (3.3-5.1); Sodium 133 mmol/L (135-145); Total Protein 7.6 g/dL (6.5-8.0)
[2020-12-11 14:39] VITALS: BP 130/64; PULSE 79; RESP 16; TEMP 37.1; O2SAT 100
[2020-12-11 14:41] LABS: Bilirubin Direct < 0.2 mg/dL (0.0-0.5); Bilirubin Total 0.2 mg/dL (0.0-1.0); Lipase < 4 U/L (8-78)
[2020-12-11 15:35] VITALS: BP 115/62; PULSE 76; RESP 15; TEMP 37.1; O2SAT 100
[2020-12-11] MEDS: 0.9 % Sodium Chloride 1,000 ML 125 ML IVCONT (16:00)
--- NOTE | 2020-12-11 16:36 | P.HPHOSP_ITS ---
History of Present Illness Date of Service: 12/11/20 Chief Complaint: Dysphagia 55 year old male with past medical history as listed below inluding history of esophageal stricuture s/p EGD with dilation in September 2020. He is here today because he has been able to eat or take pills and as result has been loosing weight--about 40 He has some pain and n/v especially upon attempting to swallow. He is been admitted for EGD +/- dilation tomorrow Review of Systems Review of Systems: Yes all other systems are reviewed and are negative Constitutional: Constitutional: Reports anorexia ENT: Reports dysphagia Cardiovascular: Cardiovascular: Denies chest pain Gastrointestinal: Gastrointestinal: Reports dysphagia, Reports nausea and Reports vomiting Neurologic: Denies focal weakness and Denies Sensory deficit (Neuro) [facility] Medical History Acute alcoholic gastritis Alcohol use disorder, severe, dependence Alcoholism Depressed Diabetes Esophageal stricture Gastritis GIB (gastrointestinal bleeding) Head injury HTN (hypertension) Hypomagnesemia Hypophosphatemia Odynophagia Pancreatitis Seizures Supraventricular tachycardia Type 2 diabetes mellitus Family History Father Diabetes Surgical History History of esophagogastroduodenoscopy (EGD) Social History Household Members: Significant Other and None Housing: Apartment Alcohol intake: former Year quit: 1 mo Smoking Status: Never smoker Second Hand Smoke Exposure: No Use of substances other than those prescribed or required for medical reasons: No Have you been hit, kicked, punched, or otherwise hurt by someone within the past year? If so, by whom?: No Advance Directives: No Advance Directives Information Provided: No Recently lost weight without trying: Yes service: No Current occupational status: unemployed and disabled Meds Allergies Allergy/AdvReac Type Severity Reaction Status Date / Time No Known Allergies Allergy Verified 12/11/20 12:04 Home Medications Medication Instructions Recorded Confirmed Type bupropion HCl 100 mg PO DAILY 11/13/20 12/11/20 History dicyclomine 10 mg PO TID PRN 11/13/20 12/11/20 History folic acid 1 mg PO DAILY 11/13/20 12/11/20 History lisinopril 20 mg PO DAILY 11/13/20 12/11/20 History multivitamin 1 tab PO DAILY 11/13/20 12/11/20 History thiamine HCl (vitamin B1) 100 mg PO DAILY 11/13/20 12/11/20 History trazodone 50 mg PO BEDTIME 11/13/20 12/11/20 History omeprazole [Prilosec] 40 mg PO BID 12/11/20 12/11/20 History Physical Exam Vital Signs and Narrative: Vital Signs: Last Vital Signs Temp 98.8 F 12/11/20 15:35 Pulse 76 12/11/20 15:35 Resp 15 12/11/20 15:35 BP 115/62 12/11/20 15:35 Pulse Ox 100 12/11/20 15:35 Body Mass Index 21.2 Const: General: healthy appearing Nutritional Appearance: average body habitus Orientation/consciousness: oriented to person and patient oriented x3 HENMT: Head: Yes normal to inspection Mouth: Normal oral and palatal mucosa present and oropharynx normal Throat: Yes posterior oropharynx normal Eyes: General: appearance normal, both eyes and all related structures Neck: Other: supple Yes normal visual inspection Chest: Chest palpation & inspection: normal inspection of the chest Resp: Auscultation: clear to auscultation bilaterally Cardio: Jugular venous distension: no JVD Rate: regular rate Rhythm: regular rhythm Heart sounds: S1 normal heart sound present and S2 normal heart sound present GI: Inspection: Yes normal to inspection Palpation (GI): Soft to palpation, nontender and No hepatosplenomegaly present Auscultation: normal bowel sounds : General: Yes no CVA tenderness Back/Spine/Pelvis: Back: no CVA tenderness Skin: General skin exam: no rashes or lesions noted Neuro: General: oriented to person and patient oriented x3 Cranial nerves: Yes CN's II-XII intact bilaterally Motor exam (neuro): 5/5 motor strength present throughout Sensory Exam: No Sensory deficit (Neuro) Extrem: General: Yes normal to inspection Psych: Appearance: grossly normal Results Labs CBC and Chem 7: 12/11/20 13:11 12/11/20 13:49 Labs: Laboratory Results - last 24 hr 12/11/20 12/11/20 13:11 13:49 MCV 77.1 L MCH 23.7 L MCHC 30.7 L RDW 16.3 H Plt Count 341 MPV 10.4 Immature Gran % (Auto) 0.3 Neut % (Auto) 72.4 Lymph % (Auto) 17.3 L [place] % (Auto) 7.2 Eos % (Auto) 2.3 Baso % (Auto) 0.5 Lymph # (Auto) 1.7 [place] # (Auto) 0.7 Eos # (Auto) 0.2 Baso # (Auto) 0.1 Abs Immat Gran (auto) 0.03 Absolute Neuts (auto) 7.0 Absolute Nucleated RBC 0.000 Nucleated RBC % (auto) 0.0 Anion Gap 13 Estim Creat Clear Calc 78.0 Estimated GFR > 60 Random Glucose 274 H D Calcium 9.4 D Total Bilirubin 0.2 Direct Bilirubin < 0.2 AST 19 ALT 13 Alkaline Phosphatase 82 Total Protein 7.6 Albumin 3.7 Lipase < 4 L Assessment and Plan (1) Gastritis and duodenitis: Status: Acute (2) Dysphagia: Problem details: Status: Acute (3) Diabetes: Status: Acute (4) Odynophagia: Status: Acute 55 year old male with history of alcohol use referred with dysphagia, odynophagia and weight loss. He not been taking medications due to dysphagia. He had been seen in the ED however had refused CT due to worrisome IV access.he is scheduled for an EGD tomorrow Dysphagia/Odynophagia--likely related to esophageal stricture -NPO -GI eval for EGD later today -IV PPI DM--SSI, IVF h/o alcoholism and withdrawal--he hasn't been drinking
[2020-12-11] MEDS: 0.9 % Sodium Chloride 1,000 ML 100 ML IVCONT (17:00)
[2020-12-11 18:00] VITALS: BP 143/78; PULSE 76; RESP 16; TEMP 36.4; O2SAT 99
[2020-12-11 18:06] LABS: IDNOW Serial# 9DD0AD1C
[2020-12-11 18:07] LABS: COVID-19 Test Negative (Negative)
--- NOTE | 2020-12-11 19:15 | PC.NURSE ---
assumed care of pt. Pt resting in stretcher in NAD. Pt awake and alert, respirations easy, n/l. skin w/d. ns up and running on pump at 100ml/hr. will continue to monitor pt.
[2020-12-11 20:26] LABS: Glucose, Whole Blood 171 mg/dL (60-115)
[2020-12-12] VITALS (9 sets, daily range): BP systolic 122–149; BP diastolic 61–87; PULSE 70–87; RESP 16–20; TEMP 36.3–37.6; O2SAT 98–100; BMI 21.2
[2020-12-12] MEDS: 0.9 % Sodium Chloride 1,000 ML 125 ML IVCONT (01:25)
[2020-12-12] MEDS: 0.9 % Sodium Chloride Flush 3 ML SYRINGE IVFLUSH ×3 (01:25→22:54)
--- NOTE | 2020-12-12 05:02 | PC.NURSE ---
PT AWAKE AND AMBULATES TO RESTROOM. PT IS NPO BUT REQUESTING WATER TO DRINK. PT DENIES ANY COMPLAINTS AND AWAITING FURTHER ORDERS.
[2020-12-12] MEDS: 0.9 % Sodium Chloride 1,000 ML 100 ML IVCONT ×3 (05:07→14:19)
[2020-12-12 06:50] LABS: Glucose, Whole Blood 184 mg/dL (60-115)
--- NOTE | 2020-12-12 08:20 | P.CNGI_ITS ---
History of Present Illness Data of Consult Service Date: 12/12/20 Requesting physician: Gibran Wayne Primary Care Provider: [facility] Reason for consult: Dysphagia 55 YM presented to [facility] ED yesterday with the dysphagia Patient with long history of DM and has had gastritis. Patient has been unable to eat, has had a lot of weight loss. He has esophageal strictures and has not been able to eat in the morning. MD elicited complaint: abdominal pain Pt complains of progressive dysphagia to solid followed by liquids. Has not been able to eat or drink since yesetrday. Has been managing his secretions. ENDOSCOPIC STUDIES: 09/20/20 EGD was performed by Dr. Muniz: Esophagus: GE junction at 38 cm, diaphragm hiatus at 40 cm, consistent with 2 c m sliding hiatal hernia, there was a very tight circumferential stricture with effacement of the lower esophageal mucosa at about 36 cm. An ultra slim scope had to be used to bypass this area. A CRE balloon was guided to the area of stricture and dilated sequentiallly from 8-10 mm with some heme and small amount of blood noted. Random esophageal bx then taken Stomach: Patchy gastric erythema with ridged mucosa. Biopsies were obtained. Grade 2 flap valve on retroflexed examination of the cardia. Duodenum: Normal bulb and descending duodenum, Impression/Findings: probable benign peptic stricture vs from EoE gastritis hiatal hernia PLAN: Stay on pureed diet high dose PPI liquid carafate repeat dilation in 4-6 weeks BIOPSIES SHOWED: A. Stomach, biopsy: Antral-type and oxyntic mucosa with mild chronic inactive inflammation; no Helicobacter organisms seen. B. Esophagus, random, biopsy: Squamous epithelium within normal limits; no inflammation seen. TODAY'S VISIT: Pt has been unable to swallow solids, liquids or pills since yesterday morning. He gives a hx of wt loss of 40 lbs over the past few months. Pt complains of pain with n/v especially upon attempting to swallow. He is been admitted for EGD +/- dilation tomorrow Denies recent change in bowel habits, constipation, diarrhea, black stools or rectal bleeding. PAST GI HISTORY BY REVIEW OF MEDICAL RECORDS: 12/05/20 seen in GI by JEREL Menjivar: A 55 y/o male - no appetite- has to force himself to eat- before he eats he wakes up shaking - he is nervous to eat he is worried he has cancer-he gets depressed- he has burping Bowels are normal passing gas- He has dyspepsia- he can drink liquids, but when he thinks about eating- he gets nervous - then it feels like the food sits in his stomach. He is able to tolerate ensure typically twice daily. He had an EGD in September-was to repeat in 4-6 weeks however in the interim he had been admitted for DKA-scheduled EGD had been canceled due requiring cardiac clearance. No alcohol since admission begin november- Currently not taking any medications- this AM- BS 70 No chest pain, SOB, fever or chills Assessment & Plan (1) Esophageal stricture: Comment: 55-year-old somewhat anxious, male with nausea, decreased appetite follows up after EGD with balloon dilation on 09/[address] Muniz repeat EGD with dilation 4-6 weeks- was cx due to need of cardiac clearance- Will schedule repeat- confirmed with Cristy. simethicone likely not responsive- however he had requested repeatedly Review of Systems Constitutional: Constitutional: Denies fever(s), Denies headache(s) and Reports weight loss Eyes: Eyes: Denies eye discharge and Denies irritation ENT: Reports Normal hearing present, Reports dysphagia, Denies dizziness and Denies headache(s) Cardiovascular: Cardiovascular: Denies chest pain, Denies leg edema and Denies dyspnea on exertion Respiratory: Respiratory: Denies cough and Denies dyspnea on exertion Gastrointestinal: Gastrointestinal: Denies abdominal pain, Denies change in bowel habits, Reports dysphagia and Denies heartburn Genitourinary: Genitourinary: Denies dysuria Musculoskeletal: Musculoskeletal: Denies back pain and Denies arthralgias Integumentary/Breasts: Skin/Breast: Denies pruritus, Denies rash and Denies jaundice Neurologic: Reports Normal hearing present, Denies Abnormal speech present, Denies dizziness, Denies headache(s) and Denies seizure-like activity Psychiatric: Psychiatric: Denies anxiety, Denies depression and Denies panic attacks Endocrine: Endocrine: Denies cold intolerance, Denies flushing and Denies heat intolerance Hematologic/Lymphatic: Hematologic/Lymphatic: Denies easy bleeding and Denies easy bruising PMFSH Past Medical History Medical History (Updated 01/24/21 @ 09:56 by Otoniel Muniz MD) Acute alcoholic gastritis Alcohol use disorder, severe, dependence Alcoholism Depressed Diabetes Esophageal stricture Gastritis GIB (gastrointestinal bleeding) Head injury HTN (hypertension) Hypomagnesemia Hypophosphatemia Odynophagia Pancreatitis Seizures Supraventricular tachycardia Type 2 diabetes mellitus Family History Family History (Updated 01/24/21 @ 09:38 by FAISAL Salazar) Father Diabetes Surgical History Surgical History (Updated 01/24/21 @ 09:38 by FAISAL Salazar) H/O colonoscopy History of esophagogastroduodenoscopy (EGD) Social History Social History (Updated 01/24/21 @ 09:39 by FAISAL Salazar) Household Members: Significant Other Housing: House Alcohol intake: current Alcohol intake frequency: does not drink Smoking Status: Never smoker Second Hand Smoke Exposure: No service: No Current occupational status: unemployed and disabled Meds Allergies Allergy/AdvReac Type Severity Reaction Status Date / Time No Known Allergies Allergy Verified 01/24/21 09:35 Home Medications Medication Instructions Recorded Confirmed Type bupropion HCl 100 mg PO DAILY 11/13/20 01/14/21 History dicyclomine 10 mg PO TID PRN 11/13/20 01/14/21 History folic acid 1 mg PO DAILY 11/13/20 01/14/21 History lisinopril 20 mg PO DAILY 11/13/20 01/14/21 History multivitamin 1 tab PO DAILY 11/13/20 01/14/21 History thiamine HCl (vitamin B1) 100 mg PO DAILY 11/13/20 01/14/21 History trazodone 50 mg PO BEDTIME 11/13/20 01/14/21 History omeprazole 40 mg PO BID 12/11/20 01/14/21 History Physical Exam Vital Signs: Vital Signs: Last Vital Signs Temp 98.7 F 12/12/20 06:23 Pulse 77 12/12/20 06:23 Resp 17 12/12/20 06:23 BP 147/87 H 12/12/20 06:23 Pulse Ox 99 12/12/20 06:23 Body Mass Index 21.2 Const: General: no acute distress and ill appearing Nutritional Appearance: average body habitus Orientation/consciousness: patient oriented x3 L imitations: no limitations HENMT: Head: Yes normal to inspection Ears: hearing grossly normal bilaterally Mouth: Normal oral and palatal mucosa present Eyes: Sclerae: sclerae normal Pupils: Equal, round and reactive pupils present Neck: Neck: Yes normal visual inspection Chest: Chest palpation & inspection: normal inspection of the chest Resp: Effort & Inspection: normal respiratory effort Auscultation: clear to auscultation bilaterally Cardio: Palpation: normal PMI Rate: regular rate Rhythm: regular rhythm Heart sounds: S1 normal heart sound present, S2 normal heart sound present and no murmurs GI: Palpation (GI): Soft to palpation, nontender and No hepatosplenomegaly present Auscultation: normal bowel sounds Rectal Exam - Male: Yes deferred Skin: General skin exam: no rashes or lesions noted Neuro: General: patient oriented x3, gait normal and moves all extremities Cranial nerves: Yes Equal, round and reactive pupils present and Yes Normal hearing present Speech: No Abnormal speech present Psych: Appearance: grossly normal Mental Status: mental status grossly no rmal Results Labs CBC & Chem 7: 12/11/20 13:11 12/11/20 13:49 Labs: Short CBC 12/11/20 Range/Units 13:11 WBC 9.6 (4.8-10.8) X10*3/uL Hgb 11.9 L (14.0-18.0) g/dl Hct 38.7 L (42-52) % Plt Count 341 (160-400) X10*3/uL BMP 12/11/20 13:49 Sodium 133 L Potassium 4.7 Chloride 100 Carbon Dioxide 25 BUN 18 H Creatinine 0.96 Calcium 9.4 D Liver Function 12/11/20 Range/Units 13:49 Total Bilirubin 0.2 (0.0-1.0) mg/dL Direct Bilirubin < 0.2 (0.0-0.5) mg/dL AST 19 (5-37) U/L ALT 13 (0-40) U/L Alkaline Phosphatase 82 (39-117) U/L Albumin 3.7 (3.5-5.0) g/dL Assessment and Plan (1) Dysphagia: Problem details: Status: Resolved (2) Esophageal stricture: Status: Acute 55 YM DM, htn with known history of benign esophageal stricture last dilated on 09/20/2020. Patient admitted with the worsening dysphagia and unable to take solids or liquids for the past 24 hours likely due to food impaction. RECOMMENDATIONS Proceed with urgent upper endoscopy and dilation today. Procedure and potential complications including bleeding, perforation, reaction to anesthetics, aspiration and missed diagnosis were reviewed with the patient.
[2020-12-12 09:05] LABS: Glucose, Whole Blood 326 mg/dL (60-115)
--- NOTE | 2020-12-12 10:11 | MHC.CM.ED ---
Met with patient with patient in regards to discharge planning. Patient lives with his girlfriend, ambulates independently and had no services prior to coming to the hospital. No services anticipated to be needed because patient is not homebound. PCP verified. HCP verified to be on file. Obs notice explained and signed. Patient will need a chair van at discharge. Continue to monitor for d/c needs.
--- NOTE | 2020-12-12 11:23 | PC.NURSE ---
pt to [facility] via stretcher with OR staff, IV infusing, belongings with patient. No distress observed.
[2020-12-12 11:29] LABS: Glucose, Whole Blood 143 mg/dL (60-115)
--- NOTE | 2020-12-12 11:43 | HO.ANESPROP2 ---
[facility] Past Medical History Medical History Acute alcoholic gastritis Alcohol use disorder, severe, dependence Alcoholism Depressed Diabetes Esophageal stricture Gastritis GIB (gastrointestinal bleeding) Head injury HTN (hypertension) Hypomagnesemia Hypophosphatemia Odynophagia Pancreatitis Seizures Supraventricular tachycardia Type 2 diabetes mellitus Family History Family History Father Diabetes Surgical History Surgical History History of esophagogastroduodenoscopy (EGD) Social History Social History Household Members: Significant Other and None Housing: Apartment Alcohol intake: former Year quit: 1 mo Smoking Status: Never smoker Second Hand Smoke Exposure: No Use of substances other than those prescribed or required for medical reasons: No Have you been hit, kicked, punched, or otherwise hurt by someone within the past year? If so, by whom?: No Advance Directives: No Advance Directives Information Provided: No Recently lost weight without trying: Yes service: No Current occupational status: unemployed and disabled Meds Allergies Allergy/AdvReac Type Severity Reaction Status Date / Time No Known Allergies Allergy Verified 12/11/20 12:04 Home Medications Medication Instructions Recorded Confirmed Type bupropion HCl 100 mg PO DAILY 11/13/20 12/11/20 History dicyclomine 10 mg PO TID PRN 11/13/20 12/11/20 History folic acid 1 mg PO DAILY 11/13/20 12/11/20 History lisinopril 20 mg PO DAILY 11/13/20 12/11/20 History multivitamin 1 tab PO DAILY 11/13/20 12/11/20 History thiamine HCl (vitamin B1) 100 mg PO DAILY 11/13/20 12/11/20 History trazodone 50 mg PO BEDTIME 11/13/20 12/11/20 History omeprazole [Prilosec] 40 mg PO BID 12/11/20 12/11/20 History Exam Exam Date and Time: December 12, 2020 1143 Height,Weight and Vital Signs: Height 5 ft 8 in Weight 63.503 kg Last Vital Signs Temp 97.3 F 12/12/20 11:07 Pulse 87 12/12/20 11:07 Resp 18 12/12/20 11:07 BP 136/75 12/12/20 11:07 Pulse Ox 100 12/12/20 11:07 Pertinent Lab Results Pertinent Lab Results: Laboratory Tests 12/11/20 12/11/20 12/11/20 12:07 13:11 13:49 WBC 9.6 RBC 5.02 Hgb 11.9 L Hct 38.7 L MCV 77.1 L MCH 23.7 L MCHC 30.7 L RDW 16.3 H Plt Count 341 MPV 10.4 Immature Gran % (Auto) 0.3 Neut % (Auto) 72.4 Lymph % (Auto) 17.3 L Bea[place]gard % (Auto) 7.2 Eos % (Auto) 2.3 Baso % (Auto) 0.5 Lymph # (Auto) 1.7 Bea[place]gard # (Auto) 0.7 Eos # (Auto) 0.2 Baso # (Auto) 0.1 Abs Immat Gran (auto) 0.03 Absolute Neuts (auto) 7.0 Absolute Nucleated RBC 0.000 Nucleated RBC % (auto) 0.0 Sodium 133 L Potassium 4.7 Chloride 100 Carbon Dioxide 25 Anion Gap 13 BUN 18 H Creatinine 0.96 Estim Creat Clear Calc 78.0 Estimated GFR > 60 POC Glucose 326 H Random Glucose 274 H D Calcium 9.4 D Total Bilirubin 0.2 Direct Bilirubin < 0.2 AST 19 ALT 13 Alkaline Phosphatase 82 Total Protein 7.6 Albumin 3.7 Lipase < 4 L COVID-19 ([facility]) [facility] 12/11/20 12/11/20 12/12/20 16:13 20:18 06:40 WBC RBC Hgb Hct MCV MCH MCHC RDW Plt Count MPV Immature Gran % (Auto) Neut % (Auto) Lymph % (Auto) Beauregard % (Auto) Eos % (Auto) Baso % (Auto) Lymph # (Auto) Bea[place]gard # (Auto) Eos # (Auto) Baso # (Auto) Abs Immat Gran (auto) Absolute Neuts (auto) Absolute Nucleated RBC Nucleated RBC % (auto) Sodium Potassium Chloride Carbon Dioxide Anion Gap BUN Creatinine Estim Creat Clear Calc Estimated GFR POC Glucose 171 H 184 H Random Glucose Calcium Total Bilirubin Direct Bilirubin AST ALT Alkaline Phosphatase Total Protein Albumin Lipase COVID-19 ([facility]) Negative COVID-19 Clin Com See Note 12/12/20 11:21 WBC RBC Hgb Hct MCV MCH MCHC RDW Plt Count MPV Immature Gran % (Auto) Neut % (Auto) Lymph % (Auto) Beauregard % (Auto) Eos % (Auto) Baso % (Auto) Lymph # (Auto) Bea[place]gard # (Auto) Eos # (Auto) Baso # (Auto) Abs Immat Gran (auto) Absolute Neuts (auto) Absolute Nucleated RBC Nucleated RBC % (auto) Sodium Potassium Chloride Carbon Dioxide Anion Gap BUN Creatinine Estim Creat Clear Calc Estimated GFR POC Glucose 143 H Random Glucose Calcium Total Bilirubin Direct Bilirubin AST ALT Alkaline Phosphatase Total Protein Albumin Lipase COVID-19 ([facility]) COVID-19 Clin Com Airway Mallampati Class: II TM Dist: >3cm Neck ROM: Full Assessment and Plan Assessment Anesthesia Assessment: Anesthesia Plan Discussed and Chart Reviewed Final Anesthetic Review NPO: Yes ASA Class: III Final Preanesthetic Review: No Changes in Pt Med Stat, Meds/Allgs Chart Reviewed, Consent Obtained/Reviewed and Anes Risks/Benef Reviewed Patient Risk: Intermediate Procedure Risk: Low Assessment/Block/Sedation in SS: Assess/Block/Sedation-SS Anesthetic Plan Anesthetic Plan: MAC: Disposition: Standard PACU
--- NOTE | 2020-12-12 11:52 | MHC.SHP ---
Pre-Procedural Eval Section A The patient is an INPATIENT: Yes Changes since office visit: Yes New Medical Problems, Yes Changes in Medication and Yes Patient answered all questions; No Cold of Flu in the past 2 weeks The History & Physical has been completed within 30 days and I have reviewed it.: Yes Section B Chief Complaint: Dysphagia Allergies: Allergies Allergy/AdvReac Type Severity Reaction Status Date / Time No Known Allergies Allergy Verified 12/11/20 12:04 Plan I have reviewed the history and physical and performed a pertinent physical examination on my patient. No changes have occurred unless specified.
--- NOTE | 2020-12-12 11:52 | W.PM.OPN ---
Operative Note Operative Note Date of Service: 12/12/20 Narrative: Pre-op diagnosis: Dysphagia, esophageal stricture Post-op diagnosis: same Procedure: FLEXIBLE TRANSORAL UPPER GASTROINTESTINAL ENDOSCOPY BIOPSIES AND ESOPHAGEAL BALLOON DILATION Consent: Indications for the procedure and potential complications of bleeding, perforation, reaction to medications and missed diagnosis were discussed with the patient and informed consent was obtained. Instrument: Olympus GIF H 190 mid size upper endoscope Monitoring: Vital signs and clinical assessment, continuous EKG monitoring, Pulse oximetry, Carbon Dioxide monitoring and blood pressure monitoring were done throughout the procedure. Procedure: The patient was placed in the left lateral decubitis position and pre-procedure medications were administered and a bite block was placed. The endoscope was inserted into the mouth and advanced under direct vision to the third part of duodenum. A careful inspection was made as the upper endoscope was withdrawn including a retroflexed examination of the proximal stomach; Findings and interventions are described below. Findings: Larynx: Edema of arytenoid cartilages Esophagus: Ulcerated esophageal stricture at 32 cms, unable to pass a mid-size upper endoscope through the stricture. Stricture was dilated with 9 and 10 mm (30 F) CRE balloon for 60 seconds at each level. Stricture could be traversed to proximal GE junction. Repeat dilation with 9 and 10 mm (30 F) CRE balloon was performed for 60 seconds at each level. Stricture extended from 32 to 38 cms. Hiatal hernia 38 to 42 cms. Polypoidal folds versus mass in the distal esophagus from 38 to 40 cms - multiple biopsies were obtained. Stomach: Mild gastric erythema. Biopsies were obtained during past EGD. Grade 3 flap valve on retroflexed examination of the cardia. Duodenum: Normal bulb and descending duodenum Intervention: Biopsies as noted above Impression and Post Procedure Diagnosis: Endoscopy Findings: LARYNX: Edema of arytenoid cartilages ESOPHAGUS: Ulcerated esophageal stricture at 32 cms, unable to pass a mid-size upper endoscope through the stricture. Stricture dilated to 10 mm (30 F). Stricture could be traversed stool proximal to the GE junction. Repeat dilation to 10 mm (30 F) was performed in the distal esophagus. Stricture extended from 32 to 38 cms. Hiatal hernia 38 to 42 cms. Polypoidal folds versus mass in the distal esophagus from 38 to 40 cms - multiple biopsies were obtained. Plan: Await pathology results. Obtain a chest and abdominal CT scan for further evaluation Keep appointment for repeat EGD on 12/18/[address] Muniz for further dilation of esophageal stricture. Above findings were reviewed with the patient Surgeon: oLnnie Plaza MD Anesthesia: MAC Estimated blood loss (mL): 0 Pathology: other (Esophageal stricture.) Condition: stable Disposition: PACU
--- NOTE | 2020-12-12 12:52 | HO.PM.IMPN ---
Subjective Subjective Date of Service: 12/12/20 Interval History: Seen in follow-up for dysphagia/odynophagia.. No change Constitutional Constitutional: Reports anorexia ENT Ears, Nose, Mouth, and Throat: Reports dysphagia Cardiovascular Cardiovascular: Denies chest pain Gastrointestinal Gastrointestinal: Reports dysphagia, Reports nausea and Reports vomiting Neurologic Neurologic: Denies focal weakness and Denies Sensory deficit (Neuro) Physical Exam Vital Signs: Vital Signs: Last Vital Signs Temp 98.1 F 12/12/20 12:42 Pulse 87 12/12/20 12:42 Resp 16 12/12/20 12:42 BP 124/76 12/12/20 12:42 Pulse Ox 100 12/12/20 12:42 Body Mass Index 21.2 Const: General: healthy appearing Nutritional Appearance: average body habitus Orientation/consciousness: oriented to person and patient oriented x3 HENMT: Head: Yes normal to inspection Mouth: Normal oral and palatal mucosa present and oropharynx normal Throat: Yes posterior oropharynx normal Eyes: General: appearance normal, both eyes and all related structures Neck: Other: supple Neck: Yes normal visual inspection Chest: Chest palpation & inspection: normal inspection of the chest Resp: Auscultation: clear to auscultation bilaterally Cardio: Jugular venous distension: no JVD Rate: regular rate Rhythm: regular rhythm Heart sounds: S1 normal heart sound present and S2 normal heart sound present GI: Inspection: Yes normal to inspection Palpation (GI): Soft to palpation, nontender and No hepatosplenomegaly present Auscultation: normal bowel sounds : General: Yes no CVA tenderness Back/Spine/Pelvis: Back: no CVA tenderness Skin: General skin exam: no rashes or lesions noted Neuro: General: oriented to person and patient oriented x3 Cranial nerves: Yes CN's II-XII intact bilaterally Motor exam (neuro): 5/5 motor strength present throughout Sensory Exam: No Sensory deficit (Neuro) Extrem: General: Yes normal to inspection Psych: Appearance: grossly normal Objective Data Current Medications Generic Name Dose Route Start Last Admin Trade Name Freq PRN Reason Stop Dose Admin Acetaminophen 650 mg 12/11/20 16:33 Acetaminophen Supp 650 Mg Supp.Rect SD Q6H PRN Pain, Mild (Pain Scale 1-3) Sodium Chloride 1,000 mls @ 125 mls/hr 12/11/20 16:00 12/12/20 10:41 Ns IVCONT Not Given .Q8H GOSIA Sodium Chloride 1,000 mls @ 100 mls/hr 12/11/20 16:33 12/12/20 10:27 Ns IVCONT 100 mls/hr .Q10H GOSIA Administration Magnesium Hydroxide 30 ml 12/11/20 16:33 Milk Of Magnesia 30 Ml Oral.Susp PO DAILY PRN Constipation Pharmacy Consult 1 each 12/11/20 16:01 Consult Rx Perform Med Rec MISCELLANE ONCE PRN Consult order Sodium Chloride 3 ml 12/12/20 00:00 12/12/20 10:27 0.9 % Sodium Chloride Flush 3 Ml Syringe IVFLUSH 3 ml QSHIFT GOSIA Administration Labs CBC & Chem 7: 12/11/20 13:11 12/11/20 13:49 Assessment and Plan (1) Gastritis and duodenitis: Status: Acute (2) Dysphagia: Problem details: Status: Acute (3) Diabetes: Status: Acute (4) Odynophagia: Status: Acute Assessment and Plan: 55 year old male with history of alcohol use referred with dysphagia, odynophagia and weight loss. He not been taking medications due to dysphagia. He had been seen in the ED however had refused CT due to worrisome IV access.he is scheduled for an EGD today Dysphagia/Odynophagia--likely related to esophageal stricture -NPO -GI eval for EGD later today -IV PPI DM--SSI, IVF h/o alcoholism and withdrawal--he hasn't been drinking
[2020-12-12 16:31] LABS: Glucose, Whole Blood 127 mg/dL (60-115)
[2020-12-12 20:21] LABS: Glucose, Whole Blood 224 mg/dL (60-115)
[2020-12-12] MEDS: Insulin Lispro 100 UNIT/ML 3 ML VIAL SUBCUT (20:37)
[2020-12-13 03:34] VITALS: BP 139/65; PULSE 83; RESP 16; TEMP 37.5; O2SAT 98
[2020-12-13 06:55] VITALS: BP 143/65; PULSE 93; RESP 18; TEMP 36.9; O2SAT 98
[2020-12-13] MEDS: 0.9 % Sodium Chloride Flush 3 ML SYRINGE IVFLUSH (07:30)
[2020-12-13 07:48] LABS: Glucose, Whole Blood 202 mg/dL (60-115)
--- NOTE | 2020-12-13 09:27 | HO.POSTANES ---
Post Anesthesia Evaluation Post Anesthesia Evaluation Vital Signs: Vital Signs Temp Pulse Resp BP Pulse Ox 12/13/20 06:55 98.4 F 93 18 143/65 H 98 12/13/20 03:34 99.5 F 83 16 139/65 98 12/12/20 23:42 99.1 F 83 16 122/61 98 Anesthesia: Monitored Mental Status: Awake Pain Control: Satisfactory Nausea/Vomiting: None Hydration: Adequate Anesthesia-Related Issues: No Anes. Related Issues
[2020-12-13] MEDS: iohexoL 350 MG/ML 100 ML INFUS..BTL 85 ML IV (10:03)
[2020-12-13] MEDS: Barium Sulfate Oral (Vanilla) 450 ML ORAL.SUSP 900 ML PO (10:04)
[2020-12-13 11:12] VITALS: BP 150/73; PULSE 87; RESP 17; TEMP 36.8; O2SAT 98
[2020-12-13] MEDS: Insulin Lispro 100 UNIT/ML 3 ML VIAL SUBCUT (11:58)
[2020-12-13 12:17] LABS: Glucose, Whole Blood 213 mg/dL (60-115)
--- NOTE | 2020-12-13 13:41 | P.DS_ITS ---
DS: Providers Provider Date of Service: 03/08/21 Date of admission: 12/11/20 16:33 Primary care physician: [facility] Consults: 12/11/20 16:33 Consult to Gastroenterology Routine Consulting Provider: Otoniel Muniz Reason for consultation: Dysphagia Has provider been notified: Yes DS: Diagnosis Discharge Diagnosis (1) Gastritis and duodenitis: Status: Acute (2) Dysphagia: Status: Resolved Problem details: (3) Diabetes: Problem details: IDDM (4) Odynophagia: Status: Resolved DS: Medications Discharge Medications Home Medications: Home Medications Medication Instructions Recorded Confirmed bupropion HCl 100 mg PO DAILY 11/13/20 12/11/20 dicyclomine 10 mg PO TID PRN 11/13/20 12/11/20 folic acid 1 mg PO DAILY 11/13/20 12/11/20 lisinopril 20 mg PO DAILY 11/13/20 12/11/20 multivitamin 1 tab PO DAILY 11/13/20 12/11/20 thiamine HCl (vitamin B1) 100 mg PO DAILY 11/13/20 12/11/20 trazodone 50 mg PO BEDTIME 11/13/20 12/11/20 omeprazole [Prilosec] 40 mg PO BID 12/11/20 12/11/20 Previous Rx's Medication Instructions Recorded sucralfate 100 mg/mL oral 10 ml PO BID #420 ml 10/17/20 suspension blood sugar diagnostic [OneTouch #100 ea 11/16/20 Ultra Blue Test Strip] blood-glucose meter [OneTouch #1 ea 11/16/20 Ultra2 Meter] insulin glargine [Lantus U-100 35 unit SUBCUT BEDTIME #4 ea 11/16/20 Insulin] insulin lispro [Humalog U-100 8 unit SUBCUT TIDAC #3 ea 11/16/20 Insulin] lancets [OneTouch Delica Lancets] #100 ea 11/16/20 lancing device with lancets #1 ea 11/16/20 [OneTouch Delica Plus Lanc Dev] magnesium oxide 400 mg PO BIDPC #60 tab 11/16/20 metoprolol tartrate 25 mg PO BID #60 tab 11/16/20 naltrexone 50 mg PO DAILY #30 tab 11/16/20 pen needle, diabetic #100 ea 11/16/20 DS: Summary Hospital Course Hospital Course: 55 year old male with past medical history as listed below inluding history of esophageal stricuture s/p EGD with dilation in September 2020. He is here today because he has been able to eat or take pills and as result has been loosing weight--about 40 He has some pain and n/v especially upon attempting to swallow. He is been admitted for EGD +/- dilation tomorrow Hospital course: Patient had EGD by DR. Plaza on 12/12/20 and noted to have esophageal thickening and biopsy taken. There was an esophageal ulcerated stricture that was dilated and mild gastric eythema alos noted and biopsied. He had a CT of chest and abdomen which showed esophageal thickening in the area that was biopsied. He has had previous biopsy in September 2020 that was negative. Diet has been advanced and he is tolerating well. He will have repeat EGD on 12/18/20 for further esophageal dilation with Dr. Muniz Time Spent with Patient Time attestation: Total time spent providing and/or coordinating discharge services: Discharge coordination time: Greater than 30 minutes Physical Exam Vital Signs: Vital Signs: Last Vital Signs Temp 98.2 F 12/13/20 11:12 Pulse 87 12/13/20 11:12 Resp 17 12/13/20 11:12 BP 150/73 H 12/13/20 11:12 Pulse Ox 98 12/13/20 11:12 Body Mass Index 21.2 DS: Data Data Completed and Pending Completed studies during hospitalization [Text1]: Procedures Detoxification Services for Substance Abuse Treatment (11/13/20) Pending studies at discharge: Pending at discharge 12/12/20 12:31 Surgical [PTH] Routine Labs on day of discharge: Laboratory Tests 12/11/20 12/11/20 12/11/20 12:07 13:11 13:49 WBC 9.6 RBC 5.02 Hgb 11.9 L Hct 38.7 L MCV 77.1 L MCH 23.7 L MCHC 30.7 L RDW 16.3 H Plt Count 341 MPV 10.4 Immature Gran % (Auto) 0.3 Neut % (Auto) 72.4 Lymph % (Auto) 17.3 L [place] % (Auto) 7.2 Eos % (Auto) 2.3 Baso % (Auto) 0.5 Lymph # (Auto) 1.7 [place] # (Auto) 0.7 Eos # (Auto) 0.2 Baso # (Auto) 0.1 Abs Immat Gran (auto) 0.03 Absolute Neuts (auto) 7.0 Absolute Nucleated RBC 0.000 Nucleated RBC % (auto) 0.0 Sodium 133 L Potassium 4.7 Chloride 100 Carbon Dioxide 25 Anion Gap 13 BUN 18 H Creatinine 0.96 Estim Creat Clear Calc 78.0 Estimated GFR > 60 POC Glucose 326 H Random Glucose 274 H D Calcium 9.4 D Total Bilirubin 0.2 Direct Bilirubin < 0.2 AST 19 ALT 13 Alkaline Phosphatase 82 Total Protein 7.6 Albumin 3.7 Lipase < 4 L COVID-19 (OLIVERIO) COVID-19 AccuRev 12/11/20 12/11/20 12/12/20 16:13 20:18 06:40 WBC RBC Hgb Hct MCV MCH MCHC RDW Plt Count MPV Immature Gran % (Auto) Neut % (Auto) Lymph % (Auto) [place] % (Auto) Eos % (Auto) Baso % (Auto) Lymph # (Auto) [place] # (Auto) Eos # (Auto) Baso # (Auto) Abs Immat Gran (auto) Absolute Neuts (auto) Absolute Nucleated RBC Nucleated RBC % (auto) Sodium Potassium Chloride Carbon Dioxide Anion Gap BUN Creatinine Estim Creat Clear Calc Estimated GFR POC Glucose 171 H 184 H Random Glucose Calcium Total Bilirubin Direct Bilirubin AST ALT Alkaline Phosphatase Total Protein Albumin Lipase COVID-19 (OLIVERIO) Negative COVID-[place] See Note 12/12/20 12/12/20 12/12/20 11:21 16:27 20:17 WBC RBC Hgb Hct MCV MCH MCHC RDW Plt Count MPV Immature Gran % (Auto) Neut % (Auto) Lymph % (Auto) [place] % (Auto) Eos % (Auto) Baso % (Auto) Lymph # (Auto) [place] # (Auto) Eos # (Auto) Baso # (Auto) Abs Immat Gran (auto) Absolute Neuts (auto) Absolute Nucleated RBC Nucleated RBC % (auto) Sodium Potassium Chloride Carbon Dioxide Anion Gap BUN Creatinine Estim Creat Clear Calc Estimated GFR POC Glucose 143 H 127 H 224 H Random Glucose Calcium Total Bilirubin Direct Bilirubin AST ALT Alkaline Phosphatase Total Protein Albumin Lipase COVID-19 (OLIVERIO) COVID-Lellan 12/13/20 12/13/20 06:59 11:14 WBC RBC Hgb Hct MCV MCH MCHC RDW Plt Count MPV Immature Gran % (Auto) Neut % (Auto) Lymph % (Auto) [place] % (Auto) Eos % (Auto) Baso % (Auto) Lymph # (Auto) [place] # (Auto) Eos # (Auto) Baso # (Auto) Abs Immat Gran (auto) Absolute Neuts (auto) Absolute Nucleated RBC Nucleated RBC % (auto) Sodium Potassium Chloride Carbon Dioxide Anion Gap BUN Creatinine Estim Creat Clear Calc Estimated GFR POC Glucose 202 H 213 H Random Glucose Calcium Total Bilirubin Direct Bilirubin AST ALT Alkaline Phosphatase Total Protein Albumin Lipase COVID-19 (OLIVERIO) COVID-19 Clin Com Discharge Plan Discharge Anticipated Discharge Date/Time: 12/13/20 13:27 Patient Disposition: Home, Self-Care Referrals: [place] [Primary Care Provider] - Discharge Medications: Continued omeprazole 40 mg Capsule,Delayed Release(Dr/Ec) 40 mg PO BID RF: 0 multivitamin Tablet 1 tab PO DAILY RF: 0 trazodone 50 mg Tablet 50 mg PO BEDTIME RF: 0 thiamine HCl (vitamin B1) 100 mg Tablet 100 mg PO DAILY RF: 0 bupropion HCl 100 mg Tablet Sustained-Release 12 Hr 100 mg PO DAILY RF: 0 folic acid 1 mg Tablet 1 mg PO DAILY RF: 0 lisinopril 20 mg Tablet 20 mg PO DAILY RF: 0 magnesium oxide 400 mg (241.3 mg magnesium) Tablet 400 mg PO BIDPC Qty: 60 RF: 0 (DME) blood-glucose meter [OneTouch Ultra2 Meter] Kit See Rx Instructions .ROUTE .MEDSUPPLY Qty: 1 RF: 0 (DME) OneTouch Ultra Blue Test Strip Strip See Rx Instructions .ROUTE .MEDSUPPLY Qty: 100 RF: 0 (DME) lancing device with lancets [OneTouch Delica Plus Lanc Dev] Kit See Rx Instructions .ROUTE .MEDSUPPLY Qty: 1 RF: 0 (DME) lancets [OneTouch Delica Lancets] 33 gauge misc See Rx Instructions .ROUTE .MEDSUPPLY Qty: 100 RF: 0 (DME) pen needle, diabetic 32 gauge x 5/32 needle See Rx Instructions .ROUTE .MEDSUPPLY Qty: 100 RF: 0 naltrexone 50 mg tablet 50 mg PO DAILY Qty: 30 RF: 0 metoprolol tartrate 25 mg tablet 25 mg PO BID Qty: 60 RF: 0 No Action famotidine 40 mg/5 mL (8 mg/mL) suspension 40 mg PO BEDTIME 30 Days Qty: 150 RF: 4 insulin aspart U-100 [Novolog Flexpen U-100 Insulin] 100 unit/mL (3 mL) insulin pen See Rx Instructions .ROUTE .COMPLEX RF: 0 Levemir FlexTouch U-100 Insuln 100 unit/mL (3 mL) insulin pen 35 unit subcut BEDTIME RF: 0 Discharge Orders: Discharge Order (Routine); Ordered 12/13/20 Ordered By: Gibran Wayne Activity on Discharge: As tolerated Stand Alone Forms: Patient Portal Discharge page Care Plan Goals: prevent rehospitalization Health Concerns: esophageal stricture Plan of Treatment: Follow up with Dr. Plaza in the office Assessment: duodenitis Patient Instructions: Gastritis (ED), Esophageal Stricture (ED), Esophagitis (ED) Discharge Date/Time: 12/13/20 14:49
--- NOTE | 2020-12-13 13:53 | MHC.CM.PN ---
nurse technical healthcare consultant note electronic medical record reviewed along with case discussed kn multiple disciplainry rounds, and with staff nruse patient wi be discharged home today with no servcies trasnportation patient to self arrange
== END 2020-12-13 14:49 | disposition home or self-care (01) ==
LOC: HO.ED 14:55 → HO.EDOVER 16:40 → HO.S3 12-12 12:12
PROVIDERS: Internal Medicine Gastroenterology; Admitting Provider Internal Medicine; Emergency Provider Emergency Medicine; Visit Provider Internal Medicine
DX: K29.90 Gastroduodenitis, unspecified, without bleeding (principal); R13.10 Dysphagia, unspecified; K22.2 Esophageal obstruction; E11.9 Type 2 diabetes mellitus without complications; I10 Essential (primary) hypertension; E83.42 Hypomagnesemia; E83.39 Other disorders of phosphorus metabolism; Z20.822 Contact with and (suspected) exposure to COVID-19; Z87.891 Personal history of nicotine dependence; Z79.4 Long term (current) use of insulin; Z79.899 Other long term (current) drug therapy
CPT/HCPCS: 36415; 71260; 74177; 80048; 80076; 82947; 83690; 85025; 87635; 88305; 88312; 96361; 96374; 99218; 99285; C1726; Q9967

== ENCOUNTER 2020-12-18 12:50 | Day surgery (SDC) | payer MEDICAID, SELFPAY ==
--- NOTE | 2020-12-17 11:20 | P.CONAN_ITS ---
Documented by User: Annita Neal 12/17/20 11:48 HPI - Anesthesia Eval Consult details Narrative: 55yo M for Upper Endoscopy with Balloon Dilitation s/p Upper Endoscopy with Balloon Dilitation 12/12/20 with T[facility] during [facility] inpt for dysphagia without issue Cardiology OV 12/09/20 for SVT during DKA admit. [facility] Active Problems Active Problems: All Active Problems (Updated 12/17/20 @ 00:01 by Background Daemjosephine) Leukocytosis (Acute) Gastritis and duodenitis (Acute) Hypophosphatemia (Acute) Supraventricular tachycardia (Acute) Hypomagnesemia (Acute) Type 2 diabetes mellitus (Acute) Past Medical History Medical History (Updated 12/17/20 @ 00:01 by Background Daemon) Acute alcoholic gastritis Alcohol use disorder, severe, dependence Alcoholism Depressed Diabetes Esophageal stricture Gastritis GIB (gastrointestinal bleeding) Head injury HTN (hypertension) Hypomagnesemia Hypophosphatemia Odynophagia Pancreatitis Seizures Supraventricular tachycardia Type 2 diabetes mellitus Family History Family History Father Diabetes Surgical History Surgical History (Updated 12/13/20 @ 11:57 by Katherine Gongora) History of esophagogastroduodenoscopy (EGD) Social History Social History Household Members: Significant Other Housing: House Alcohol intake: former Year quit: 1 mo Smoking Status: Never smoker Second Hand Smoke Exposure: No Use of substances other than those prescribed or required for medical reasons: No Have you been hit, kicked, punched, or otherwise hurt by someone within the past year? If so, by whom?: No Advance Directives: No Advance Directives Information Provided: Yes Recently lost weight without trying: Yes service: No Current occupational status: unemployed and disabled Meds Allergies Allergy/AdvReac Type Severity Reaction Status Date / Time No Known Allergies Allergy Verified 12/11/20 12:04 Home Medications Medication Instructions Recorded Confirmed Type bupropion HCl 100 mg PO DAILY 11/13/20 12/11/20 History dicyclomine 10 mg PO TID PRN 11/13/20 12/11/20 History folic acid 1 mg PO DAILY 11/13/20 12/11/20 History lisinopril 20 mg PO DAILY 11/13/20 12/11/20 History multivitamin 1 tab PO DAILY 11/13/20 12/11/20 History thiamine HCl (vitamin B1) 100 mg PO DAILY 11/13/20 12/11/20 History trazodone 50 mg PO BEDTIME 11/13/20 12/11/20 History omeprazole 40 mg PO BID 12/11/20 12/11/20 History Exam Exam Date and Time: December 17, 2020 112 Pertinent Lab Results Pertinent Lab Results: Laboratory Tests 12/11/20 12/11/20 13:11 13:49 WBC 9.6 Hgb 11.9 L Hct 38.7 L Plt Count 341 Sodium 133 L Potassium 4.7 Chloride 100 Carbon Dioxide 25 BUN 18 H Creatinine 0.96 Narrative Narrative: EKG 12/09/20 NSR Documented by User: Barbara Yanez 12/18/20 14:11 ON LICENSE OF [facility] Past Medical History Medical History (Updated 12/17/20 @ 00:01 by Keren Alarcon) Acute alcoholic gastritis Alcohol use disorder, severe, dependence Alcoholism Depressed Diabetes Esophageal stricture Gastritis GIB (gastrointestinal bleeding) Head injury HTN (hypertension) Hypomagnesemia Hypophosphatemia Odynophagia Pancreatitis Seizures Supraventricular tachycardia Type 2 diabetes mellitus Family History Family History Father Diabetes Surgical History Surgical History (Updated 12/13/20 @ 11:57 by Katherine Gongora) History of esophagogastroduodenoscopy (EGD) Social History Social History Household Members: Significant Other Housing: House Alcohol intake: former Year quit: 1 mo Smoking Status: Never smoker Second Hand Smoke Exposure: No Use of substances other than those prescribed or required for medical reasons: No Have you been hit, kicked, punched, or otherwise hurt by someone within the past year? If so, by whom?: No Advance Directives: No Advance Directives Information Provided: Yes Recently lost weight without trying: Yes service: No Current occupational status: unemployed and disabled Meds Allergies Allergy/AdvReac Type Severity Reaction Status Date / Time No Known Allergies Allergy Verified 12/11/20 12:04 Home Medications Medication Instructions Recorded Confirmed Type bupropion HCl 100 mg PO DAILY 11/13/20 12/11/20 History dicyclomine 10 mg PO TID PRN 11/13/20 12/11/20 History folic acid 1 mg PO DAILY 11/13/20 12/11/20 History lisinopril 20 mg PO DAILY 11/13/20 12/11/20 History multivitamin 1 tab PO DAILY 11/13/20 12/11/20 History thiamine HCl (vitamin B1) 100 mg PO DAILY 11/13/20 12/11/20 History trazodone 50 mg PO BEDTIME 11/13/20 12/11/20 History omeprazole 40 mg PO BID 12/11/20 12/11/20 History Exam Airway Mallampati Class: II TM Dist: >3cm Neck ROM: Full Heart: RRR Lungs: CTA BL Assessment and Plan Assessment Anesthesia Assessment: Anesthesia Plan Discussed and Chart Reviewed Final Anesthetic Review NPO: Yes ASA Class: III Final Preanesthetic Review: Meds/Allgs Chart Reviewed and Consent Obtained/Reviewed Patient Risk: Intermediate Procedure Risk: Intermediate Anesthetic Plan Anesthetic Plan: MAC: Disposition: Standard PACU
[2020-12-18 13:02] VITALS: BP 132/72; PULSE 85; RESP 20; TEMP 37.1; O2SAT 99; BMI 21.2
[2020-12-18 13:04] LABS: Glucose, Whole Blood 134 mg/dL (60-115)
[2020-12-18] MEDS: Lactated Ringers 1,000 ML 50 ML IVCONT (14:00)
--- NOTE | 2020-12-18 14:04 | MHC.SHP ---
Pre-Procedural Eval Section B Chief Complaint: dysphagia Relevant Family History (Specify if Yes): No Relevant Social History: Alcohol Use Present Medications: see Short Stay Collaborative assessment Medical History: Significant History (Acute alcoholic gastritis Alcohol use disorder, severe, dependence Alcoholism Depressed Diabetes Esophageal stricture Gastritis GIB (gastrointestinal bleeding) Head injury HTN (hypertension) Hypomagnesemia Hypophosphatemia Odynophagia Pancreatitis Seizures Supraventricular tachycardia Type 2 diabete) History of Previous Operations: Relevant previous surgery/procedure and date(s) Allergies: Allergies Allergy/AdvReac Type Severity Reaction Status Date / Time No Known Allergies Allergy Verified 12/11/20 12:04 Review of Systems Sugical H&P ROS: Negative: Constitution, Cardiovascular, Respiratory, Neurological, Psychiatric, Hem-Onc, Allergic/Immunologic, Gastrointestinal, Genitourinary, Musculoskeletal, Integumentary, Endocrine and Eyes/Ears/Nose/Throat Exam Surgical H&P Exam: Normal: HEENT, Normal: Heart, Normal: Lungs, Normal: Abdomen, Normal: Skin and Normal: Neurological and Significant Findings: Extremities (clubbing) Plan Diagnosis/Plan: Unchanged I have reviewed the history and physical and performed a pertinent physical examination on my patient. No changes have occurred unless specified.
--- NOTE | 2020-12-18 14:58 | P.OP_ITS ---
Operative Note Operative Note Date of Service: 12/18/20 Narrative: Procedure Description: EGD FLEXIBLE TRANSORAL UPPER GASTROINTESTINAL ENDOSCOPY UPPER ENDOSCOPY Consent: Indications for the procedure and potential complications of bleeding, perforation, reaction to medications and missed diagnosis were discussed with the patient and informed consent was obtained. Instrument: Olympus GIF H 190 J mid size upper endoscope Monitoring: Vital signs and clinical assessment, continuous EKG monitoring, Pulse oximetry, Carbon Dioxide monitoring and blood pressure monitoring were done throughout the procedure. Procedure: The patient was placed in the left lateral decubitis position and pre-procedure medications were administered and a bite block was placed. The endoscope was inserted into the mouth and advanced under direct vision to the third part of duodenum. A careful inspection was made as the upper endoscope was withdrawn including a retroflexed examination of the proximal stomach; Findings and interventions are described below. Findings: Larynx:normal Esophagus: Initially unable to transverse lowr esophagus due to stricture from 34 to 38 cm so dilated with balloon to 12 mm. GE junction at 38 cm, diaphragm hiatus at 42 cm, 4 cm sliding hiatal hernia noted. tissue was friable and ulcerated, with slough and irregularity, forceps bx taken at 38, 36, and 34 cm, as well as WATS brushings. Stomach: Normal. Biopsies were obtained from fundus and cardia. Grade 2 flap valve on retroflexed examination of the cardia. Duodenum: Normal bulb and descending duodenum Intervention: Biopsies as noted above, WATS 3 D brushings, balloon dilation Impression/Findings: Given presence of clubbing on exam, recent Ct with mediastinal node and appearance of esophagus today suspect neoplasia PLAN: Await tissue bx results and WATS results if no answer then refer for EUS to [facility] or [facility], bx of node etc diet-soft diet, with thorough chewing of food, avoid hard, chunky foods like steak, small amounts at a time. depending on clinical course may need esophageal stenting.
--- NOTE | 2020-12-18 14:58 | PM.OP ---
Brief Operative Note Date of Service: 12/18/20 Pre-op diagnosis: dysphagia Post-op diagnosis: same Procedure: see op note Surgeon: Otoniel Muniz MD Anesthesia: MAC Estimated blood loss (mL): 0 Condition: stable Disposition: PACU
[2020-12-18 15:00] VITALS: BP 97/48; PULSE 89; RESP 18; TEMP 36.1; O2SAT 100
--- NOTE | 2020-12-18 15:14 | HO.POSTANES ---
Post Anesthesia Evaluation Post Anesthesia Evaluation Vital Signs: Vital Signs Temp Pulse Resp BP Pulse Ox 12/18/20 15:00 97.0 F 89 18 97/48 L 100 12/18/20 13:02 98.8 F 85 20 132/72 99 Anesthesia: Monitored Mental Status: Awake Pain Control: Satisfactory Nausea/Vomiting: None Hydration: Adequate Anesthesia-Related Issues: No Anes. Related Issues
[2020-12-18 15:15] VITALS: BP 133/76; PULSE 94; RESP 16; TEMP 36.1; O2SAT 100
== END 2020-12-18 16:30 | disposition home or self-care (01) ==
PROVIDERS: PCP Nurse Practitioner Family; Visit Provider Internal Medicine Gastroenterology
PROC: (CPT 43239; principal; 2020-12-18 14:50)
DX: K22.2 Esophageal obstruction (principal); K44.9 Diaphragmatic hernia without obstruction or gangrene; E11.9 Type 2 diabetes mellitus without complications
CPT/HCPCS: 43239; 43249; 82947; 88305; 88312; 88341; 88342; C1726

== ENCOUNTER 2021-01-07 11:50 | Day surgery (SDC) | payer MEDICAID, SELFPAY ==
--- NOTE | 2021-01-06 08:39 | HO.ANESPROP2 ---
Documented by User: Annita Neal 01/06/21 13:37 HPI - Anesthesia Eval Consult details Narrative: 55yo M for Upper Endoscopy s/p EGD with MAC 12/18/20 Cardiology OV 12/09/20 for SVT during DKA admit ([facility] 11/16/20). Started on metoprolol with improvement in SVT PMFSH Active Problems Active Problems: All Active Problems (Updated 12/17/20 @ 00:01 by Keren Alarcon) Leukocytosis (Acute) Gastritis and duodenitis (Acute) Hypophosphatemia (Acute) Supraventricular tachycardia (Acute) Hypomagnesemia (Acute) Type 2 diabetes mellitus (Acute) Past Medical History Medical History Acute alcoholic gastritis Alcohol use disorder, severe, dependence Alcoholism Depressed Diabetes Esophageal stricture Gastritis GIB (gastrointestinal bleeding) Head injury HTN (hypertension) Hypomagnesemia Hypophosphatemia Odynophagia Pancreatitis Seizures Supraventricular tachycardia Type 2 diabetes mellitus Family History Family History Father Diabetes Surgical History Surgical History History of esophagogastroduodenoscopy (EGD) Social History Social History Household Members: Significant Other Housing: House Alcohol intake: former Year quit: 1 mo Smoking Status: Never smoker Second Hand Smoke Exposure: No Use of substances other than those prescribed or required for medical reasons: No Have you been hit, kicked, punched, or otherwise hurt by someone within the past year? If so, by whom?: No Advance Directives: No Advance Directives Information Provided: Yes service: No Current occupational status: unemployed and disabled Meds Allergies Allergy/AdvReac Type Severity Reaction Status Date / Time No Known Allergies Allergy Verified 12/11/20 12:04 Home Medications Medication Instructions Recorded Confirmed Last Taken Type bupropion HCl 100 mg PO DAILY 11/13/20 12/11/20 Unknown History dicyclomine 10 mg PO TID PRN 11/13/20 12/11/20 Unknown History folic acid 1 mg PO DAILY 11/13/20 12/11/20 Unknown History lisinopril 20 mg PO DAILY 11/13/20 12/11/20 Unknown History multivitamin 1 tab PO DAILY 11/13/20 12/11/20 Unknown History thiamine HCl (vitamin B1) 100 mg PO DAILY 11/13/20 12/11/20 Unknown History trazodone 50 mg PO BEDTIME 11/13/20 12/11/20 Unknown History omeprazole 40 mg PO BID 12/11/20 12/11/20 Unknown History Exam Exam Date and Time: January 06, 2021 0839 Pertinent Lab Results Pertinent Lab Results: Laboratory Tests 12/11/20 12/11/20 13:11 13:49 WBC 9.6 Hgb 11.9 L Hct 38.7 L Plt Count 341 Sodium 133 L Potassium 4.7 Chloride 100 Carbon Dioxide 25 BUN 18 H Creatinine 0.96 Laboratory Tests 11/13/20 12/11/20 04:38 13:49 PT 11.5 INR 1.0 Total Bilirubin 0.2 Direct Bilirubin < 0.2 AST 19 ALT 13 Alkaline Phosphatase 82 Total Protein 7.6 Albumin 3.7 Narrative Narrative: EKG 12/09/20 NSR Assessment and Plan Assessment Anesthesia Assessment: Chart Reviewed Documented by User: Tanisha Edward 01/07/21 13:46 PMFSH Past Medical History Medical History Acute alcoholic gastritis Alcohol use disorder, severe, dependence Alcoholism Depressed Diabetes Esophageal stricture Gastritis GIB (gastrointestinal bleeding) Head injury HTN (hypertension) Hypomagnesemia Hypophosphatemia Odynophagia Pancreatitis Seizures Supraventricular tachycardia Type 2 diabetes mellitus Family History Family History Father Diabetes Family history of problems with anesthesia: No Surgical History Surgical History History of esophagogastroduodenoscopy (EGD) History of Problems with Anesthesia: No Social History Social History Household Members: Significant Other Housing: House Alcohol intake: former Year quit: 1 mo Smoking Status: Never smoker Second Hand Smoke Exposure: No Use of substances other than those prescribed or required for medical reasons: No Have you been hit, kicked, punched, or otherwise hurt by someone within the past year? If so, by whom?: No Advance Directives: No Advance Directives Information Provided: Yes service: No Current occupational status: unemployed and disabled Meds Allergies Allergy/AdvReac Type Severity Reaction Status Date / Time No Known Allergies Allergy Verified 12/11/20 12:04 Home Medications Medication Instructions Recorded Confirmed Last Taken Type bupropion HCl 100 mg PO DAILY 11/13/20 12/11/20 Unknown History dicyclomine 10 mg PO TID PRN 11/13/20 12/11/20 Unknown History folic acid 1 mg PO DAILY 11/13/20 12/11/20 Unknown History lisinopril 20 mg PO DAILY 11/13/20 12/11/20 Unknown History multivitamin 1 tab PO DAILY 11/13/20 12/11/20 Unknown History thiamine HCl (vitamin B1) 100 mg PO DAILY 11/13/20 12/11/20 Unknown History trazodone 50 mg PO BEDTIME 11/13/20 12/11/20 Unknown History omeprazole 40 mg PO BID 12/11/20 12/11/20 Unknown History Exam Height,Weight and Vital Signs: Vital Signs Temp Pulse Resp BP Pulse Ox 01/07/21 12:51 98.9 F 99 18 134/83 100 Pertinent Lab Results Pertinent Lab Results: Lab Results 01/07/21 Range/Units 13:03 POC Glucose 160 H (60-115) mg/dL Airway Mallampati Class: II TM Dist: >3cm Neck ROM: Full Heart: RRR Lungs: CTAB Assessment and Plan Assessment Anesthesia Assessment: Anesthesia Plan Discussed and Chart Reviewed Final Anesthetic Review NPO: Yes ASA Class: III Final Preanesthetic Review: No Changes in Pt Med Stat, Meds/Allgs Chart Reviewed, Consent Obtained/Reviewed and Anes Risks/Benef Reviewed Patient Risk: Intermediate Procedure Risk: Low Assessment/Block/Sedation in SS: Assess/Block/Sedation-SS Anesthetic Plan Anesthetic Plan: MAC: Disposition: Standard PACU
[2021-01-07 12:51] VITALS: BP 134/83; PULSE 99; RESP 18; TEMP 37.2; O2SAT 100; BMI 21.2
[2021-01-07 13:08] LABS: Glucose, Whole Blood 160 mg/dL (60-115)
[2021-01-07] MEDS: Lactated Ringers 1,000 ML 100 ML IVCONT (13:43)
--- NOTE | 2021-01-07 13:59 | MHC.SHP ---
Pre-Procedural Eval Section B Chief Complaint: Dysphagia Relevant Family History (Specify if Yes): No Relevant Social History: None Present Medications: see Short Stay Collaborative assessment Medical History: Significant History (Acute alcoholic gastritis Alcohol use disorder, severe, dependence Alcoholism Depressed Diabetes Esophageal stricture Gastritis GIB (gastrointestinal bleeding) Head injury HTN (hypertension) Hypomagnesemia Hypophosphatemia Odynophagia Pancreatitis Seizures Supraventricular tachycardia Type 2 diabete) History of Previous Operations: Relevant previous surgery/procedure and date(s) (EGD) Allergies: Allergies Allergy/AdvReac Type Severity Reaction Status Date / Time No Known Allergies Allergy Verified 12/11/20 12:04 Review of Systems Sugical H&P ROS: Negative: Constitution, Cardiovascular, Respiratory, Neurological, Psychiatric, Hem-Onc, Allergic/Immunologic, Gastrointestinal, Genitourinary, Musculoskeletal, Integumentary, Endocrine and Eyes/Ears/Nose/Throat Exam Surgical H&P Exam: Significant Findings: Extremities (clubbing) Plan Diagnosis/Plan: Unchanged I have reviewed the history and physical and performed a pertinent physical examination on my patient. No changes have occurred unless specified.
--- NOTE | 2021-01-07 14:57 | PM.OP ---
Brief Operative Note Date of Service: 01/07/21 Pre-op diagnosis: stricture Post-op diagnosis: same Procedure: see op note Surgeon: Otoniel Muniz MD Anesthesia: MAC Estimated blood loss (mL): 15 Condition: stable Disposition: PACU
--- NOTE | 2021-01-07 14:57 | W.PM.OPN ---
Operative Note Operative Note Date of Service: 01/07/21 Narrative: Procedure Description: EGD FLEXIBLE TRANSORAL UPPER GASTROINTESTINAL ENDOSCOPY UPPER ENDOSCOPY Consent: Indications for the procedure and potential complications of bleeding, perforation, reaction to medications and missed diagnosis were discussed with the patient and informed consent was obtained. Instrument: Olympus GIF H 190 J mid size upper endoscope Monitoring: Vital signs and clinical assessment, continuous EKG monitoring, Pulse oximetry, Carbon Dioxide monitoring and blood pressure monitoring were done throughout the procedure. Procedure: The patient was placed in the left lateral decubitis position and pre-procedure medications were administered and a bite block was placed. The endoscope was inserted into the mouth and advanced under direct vision to the third part of duodenum. A careful inspection was made as the upper endoscope was withdrawn including a retroflexed examination of the proximal stomach; Findings and interventions are described below. Findings: Macerated esophageal tissue at distal esophagus with friability and granularity, narrow at GEJ, couldn;t pass regular EGD scope, was able to push slim scope thru with gentle pressure. Balloon dilation done to 10 mm but still couldn;t get regular EGD scope thru. Bx taken from distal esophagus as well as brushings. There was a lot of oozing, so hemospray applied with cessation of bleeding. A sliding hiatal hernia noted, no mass at GEJ on retroflexion. Intervention: Biopsies as noted above, balloon dilation Impression/Findings: stricture, possibly malignant PLAN: await brushings and bx, refer Dr Doc Rowe, may need surgical eval, may need EUS but may be difficult to pass probe given stricture, may still get enough information if able to get to distal esophagus though should stay on liquid diet for the meantime, may need stenting as well
[2021-01-07 15:02] VITALS: BP 129/81; PULSE 94; RESP 20; TEMP 36.3; O2SAT 99
[2021-01-07 15:17] VITALS: BP 155/87; PULSE 84; RESP 16; O2SAT 100
== END 2021-01-07 15:37 | disposition home or self-care (01) ==
PROVIDERS: Visit Provider Internal Medicine Gastroenterology
PROC: 0DJ08ZZ Inspection of Upper Intestinal Tract, Via Natural or Artificial Opening Endoscopic (ICD-10-PCS; CPT 43235; principal; 2021-01-07 14:50)
DX: R13.10 Dysphagia, unspecified (principal); K22.2 Esophageal obstruction; R63.4 Abnormal weight loss; F10.20 Alcohol dependence, uncomplicated; K44.9 Diaphragmatic hernia without obstruction or gangrene; K29.20 Alcoholic gastritis without bleeding; E11.9 Type 2 diabetes mellitus without complications; E83.39 Other disorders of phosphorus metabolism; E83.42 Hypomagnesemia; K85.90 Acute pancreatitis without necrosis or infection, unspecified; Z79.4 Long term (current) use of insulin; Z79.899 Other long term (current) drug therapy
CPT/HCPCS: 43249; 43239; 82947; 88112; 88305; C1726

== ENCOUNTER → 2021-01-17 08:43 | Outpatient (REF) | payer MEDICAID, SELFPAY ==
--- NOTE | 2021-01-17 08:47 | CA_ITS ---
Transthoracic Echocardiogram Patient (Last, First, Middle): Arnulfo Friedman, Gender: Male Date of : 1965 Age: 56 Procedure Date: 01/17/2021 Procedure Type: Transthoracic Echocardiogram Location: OP Height: 172.72 cm Weight: 63.5 kg BSA: 1.76 m2 Heart Rate: bpm BP: 118 / 60 mmHg School Admissions Representative: Referring MD: Maynor Salcedo MD Symptoms: I47.1 - Supraventricular tachycardia Study Quality: Good ECG Rhythm: Sinus Conclusions: - Normal biventricular function. - Normal diastolic function - Mildly dilated LA. Findings Left Ventricle Normal left ventricular size, thickness, systolic function, and wall motion. The visually estimated ejection fraction is between 55-60%. Diastolic function is normal for age. Right Ventricle Normal right ventricular cavity size and systolic function. Atria The left atrium is mildly dilated. Aortic Valve There is a normal trileaflet aortic valve. There is no aortic valve stenosis. There is no aortic valve regurgitation. Mitral Valve Normal mitral valve structure and function. There is trace mitral valve regurgitation. There is no mitral valve stenosis. Pulmonic Valve Normal pulmonic valve structure and function. There is trace pulmonic valve regurgitation. Tricuspid Valve Normal tricuspid valve structure and function. There is trace tricuspid valve regurgitation. Normal right atrial pressure. There is no evidence of pulmonary hypertension. Great Vessels All visible segments of the aorta are normal in size. The visualized portions of the pulmonary artery and branches are normal. Venous The inferior vena cava is normal in size and collapses greater than 50% with inspiration. Pericardium/Pleural There is no evidence of pericardial effusion. Prior Study Comparison Changes noted compared to prior study dated: 11/26/2017. Diastolic function appears to be normal now. Measurements 2D Linear Measurements IVSd: 1.06 0.6-0.9/0.6-1.0 cm LVIDd: 4.48 3.9-5.3/4.2-5.9 cm LVIDd Index: 2.55 2.4-3.2/2.2-3.1 cm/m2 LVIDs: 3.31 2.0-3.6 cm LVPWd: 1.03 0.7-1.1 cm Ao Root: 3.00 2.1-3.5 cm LA Diam: 3.30 2.7-3.8/3.0-4.0 cm LAIDs Index: 1.88 1.5-2.3 cm/m2 LV Mass: 201.43 67-162/88-224 g LV Mass Index: 114.45 43-95/49-115 g/m2 LVOT Diam: 2.10 3.0+(-)1.3 cm Mitral Valve MV Pk E: 0.91 MV PK A: 0.80 MV Decel Time: 137.00 E/A: 1.10 E'Lateral: 12.80 E'Medial: 11.20 E/E' Med: 8.10 E/E' Lat: 7.10 PHT: 40.00 MVA PHT: 5.50 Decel Saunders: 6.61 Aortic Valve AoV Pk Jesus: 1.12 AoV Mn Jesus: 0.70 AoV VTI: 0.22 AoV Pk Grad: 5.00 Aov Mn Grad: 2.00 FIORELLA Cont.VTI: 2.84 LVOT LVOT Pk Jesus: 0.82 LVOT Mn Jesus: 0.54 LVOT VTI: 0.18 LVOT Pk Grad: 3.00 LVOT Mn Grad: 1.00 LVOT Diam: 2.10 LVOT Area: 3.46 Diastolic Function MV Pk E: 0.91 MV Pk A: 0.80 E/A: 1.10 E'Medial: 11.20 E/E' Med: 8.10 E' Laterial: 12.80 E/E' Lat: 7.10 Tricuspid Valve TR Pk Jesus: 2.73 TR Pk Grad: 30.00 RVSP: 33.00 Great Vessels Aorta Ao Root-2D: 3.00 2.0-3.7 cm Ao Asc: 2.60 2.1-3.4 cm Pulmonary Valve PV Pk Jesus: 0.99 Peak PV Grad: 4.00 Updated in Other Vendor System with Status of Final Maynor Salcedo MD electronically signed on 01/18/2021 6:57:37 PM with status of Final
== END ==
LOC: HO.CARD 08:43
PROVIDERS: Visit Provider Internal Medicine Cardiovascular Disease
DX: I47.1 Supraventricular tachycardia (principal)
CPT/HCPCS: 93306

== ENCOUNTER 2021-01-20 12:27 | Day surgery (SDC) | payer MEDICAID, SELFPAY ==
[2021-01-14 14:13] VITALS: BMI 21.2
--- NOTE | 2021-01-17 10:24 | P.CONAN_ITS ---
Documented by User: Annita Val 01/17/21 10:32 HPI - Anesthesia Eval Consult details Narrative: 56yo M for Upper Endoscopy s/p EGD with TIVA 01/09/21 - referral to thoracic for mass (?malignancy) - pt no showed to thoracic appt 01/17 Cardiology OV 12/09/20 for SVT during DKA [place] [place] Started on metoprolol with improvement in SVT FOR[facility]LY [facility], 1928–1983 Active Problems Active Problems: All Active Problems (Updated 12/17/20 @ 00:01 by Keren Alarcon) Leukocytosis (Acute) Gastritis and duodenitis (Acute) Hypophosphatemia (Acute) Supraventricular tachycardia (Acute) Hypomagnesemia (Acute) Type 2 diabetes mellitus (Acute) Past Medical History Medical History Acute alcoholic gastritis Alcohol use disorder, severe, dependence Alcoholism Depressed Diabetes Esophageal stricture Gastritis GIB (gastrointestinal bleeding) Head injury HTN (hypertension) Hypomagnesemia Hypophosphatemia Odynophagia Pancreatitis Seizures Supraventricular tachycardia Type 2 diabetes mellitus Family History Family History Father Diabetes Surgical History Surgical History History of esophagogastroduodenoscopy (EGD) Social History Social History Household Members: Significant Other Housing: House Are you a primary child care aide to a significant other at home: No Do you presently have visiting nurse or other home services: No Alcohol intake: former Year quit: 1 mo Smoking Status: Never smoker Second Hand Smoke Exposure: No Use of substances other than those prescribed or required for medical reasons: No Have you been hit, kicked, punched, or otherwise hurt by someone within the past year? If so, by whom?: No Advance Directives Information Provided: No Recently lost weight without trying: No service: No Current occupational status: unemployed and disabled Meds Allergies Allergy/AdvReac Type Severity Reaction Status Date / Time No Known Allergies Allergy Verified 12/11/20 12:04 Home Medications Medication Instructions Recorded Confirmed Last Taken Type bupropion HCl 100 mg PO DAILY 11/13/20 01/14/21 Unknown History dicyclomine 10 mg PO TID PRN 11/13/20 01/14/21 Unknown History folic acid 1 mg PO DAILY 11/13/20 01/14/21 Unknown History lisinopril 20 mg PO DAILY 11/13/20 01/14/21 Unknown History multivitamin 1 tab PO DAILY 11/13/20 01/14/21 Unknown History thiamine HCl (vitamin B1) 100 mg PO DAILY 11/13/20 01/14/21 Unknown History trazodone 50 mg PO BEDTIME 11/13/20 01/14/21 Unknown History omeprazole 40 mg PO BID 12/11/20 01/14/21 Unknown History Exam Exam Date and Time: January 17, 2021 1024 Height,Weight and Vital Signs: Height 5 ft 8 in Weight 63.503 kg Pertinent Lab Results Pertinent Lab Results: Laboratory Tests 12/11/20 12/11/20 13:11 13:49 WBC 9.6 Hgb 11.9 L Hct 38.7 L Plt Count 341 Sodium 133 L Potassium 4.7 Chloride 100 Carbon Dioxide 25 BUN 18 H Creatinine 0.96 Narrative Narrative: EKG 12/09/20 NSR Assessment and Plan Assessment Anesthesia Assessment: Chart Reviewed Documented by User: Tanisha Edward 01/20/21 13:54 PMFSH Past Medical History Medical History Acute alcoholic gastritis Alcohol use disorder, severe, dependence Alcoholism Depressed Diabetes Esophageal stricture Gastritis GIB (gastrointestinal bleeding) Head injury HTN (hypertension) Hypomagnesemia Hypophosphatemia Odynophagia Pancreatitis Seizures Supraventricular tachycardia Type 2 diabetes mellitus Family History Family History Father Diabetes Family history of problems with anesthesia: No Surgical History Surgical History History of esophagogastroduodenoscopy (EGD) History of Problems with Anesthesia: No Social History Social History Household Members: Significant Other Housing: House Are you a primary child care aide to a significant other at home: No Do you presently have visiting nurse or other home services: No Alcohol intake: former Year quit: 1 mo Smoking Status: Never smoker Second Hand Smoke Exposure: No Use of substances other than those prescribed or required for medical reasons: No Have you been hit, kicked, punched, or otherwise hurt by someone within the past year? If so, by whom?: No Advance Directives Information Provided: No Recently lost weight without trying: No service: No Current occupational status: unemployed and disabled Meds Allergies Allergy/AdvReac Type Severity Reaction Status Date / Time No Known Allergies Allergy Verified 12/11/20 12:04 Home Medications Medication Instructions Recorded Confirmed Last Taken Type bupropion HCl 100 mg PO DAILY 11/13/20 01/14/21 Unknown History dicyclomine 10 mg PO TID PRN 11/13/20 01/14/21 Unknown History folic acid 1 mg PO DAILY 11/13/20 01/14/21 Unknown History lisinopril 20 mg PO DAILY 11/13/20 01/14/21 Unknown History multivitamin 1 tab PO DAILY 11/13/20 01/14/21 Unknown History thiamine HCl (vitamin B1) 100 mg PO DAILY 11/13/20 01/14/21 Unknown History trazodone 50 mg PO BEDTIME 11/13/20 01/14/21 Unknown History omeprazole 40 mg PO BID 12/11/20 01/14/21 Unknown History Exam Height,Weight and Vital Signs: Vital Signs Temp Pulse Resp BP Pulse Ox 01/20/21 13:08 98.7 F 88 18 119/79 100 Pertinent Lab Results Pertinent Lab Results: Lab Results 01/20/21 Range/Units 13:28 POC Glucose 182 H (60-115) mg/dL Airway Mallampati Class: II TM Dist: >3cm Neck ROM: Full Heart: RRR Lungs: CTAB Assessment and Plan Assessment Anesthesia Assessment: Anesthesia Plan Discussed and Chart Reviewed Final Anesthetic Review NPO: Yes ASA Class: III Final Preanesthetic Review: No Changes in Pt Med Stat, Meds/Allgs Chart Reviewed, Consent Obtained/Reviewed and Anes Risks/Benef Reviewed Patient Risk: Intermediate Procedure Risk: Low Assessment/Block/Sedation in SS: Assess/Block/Sedation-SS Anesthetic Plan Anesthetic Plan: MAC: Disposition: Standard PACU
[2021-01-20 13:08] VITALS: BP 119/79; PULSE 88; RESP 18; TEMP 37.1; O2SAT 100
[2021-01-20 13:32] LABS: Glucose, Whole Blood 182 mg/dL (60-115)
[2021-01-20] MEDS: Lactated Ringers 1,000 ML 100 ML IVCONT (13:40)
--- NOTE | 2021-01-20 13:51 | P.HPSUR_ITS ---
Pre-Procedural Eval Section B Chief Complaint: esophagus stricture Relevant Family History (Specify if Yes): No Relevant Social History: Alcohol Use (ex heavy alcoholic) Present Medications: see Short Stay Collaborative assessment Medical History: Significant History (Acute alcoholic gastritis Alcohol use disorder, severe, dependence Alcoholism Depressed Diabetes Esophageal stricture Gastritis GIB (gastrointestinal bleeding) Head injury HTN (hypertension) Hypomagnesemia Hypophosphatemia Odynophagia Pancreatitis Seizures Supraventricular tachycardia Type 2 diabete) History of Previous Operations: Relevant previous surgery/procedure and date(s) (egd) Allergies: Allergies Allergy/AdvReac Type Severity Reaction Status Date / Time No Known Allergies Allergy Verified 12/11/20 12:04 Review of Systems Sugical H&P ROS: Negative: Constitution, Cardiovascular, Respiratory, Neurologic al, Psychiatric, Hem-Onc, Allergic/Immunologic, Gastrointestinal, Genitourinary, Musculoskeletal, Integumentary, Endocrine and Eyes/Ears/Nose/Throat Exam Surgical H&P Exam: Normal: HEENT, Normal: Heart, Normal: Lungs, Normal: Extremities, Normal: Abdomen, Normal: Skin and Normal: Neurological Plan Diagnosis/Plan: Unchanged I have reviewed the history and physical and performed a pertinent physical examination on my patient. No changes have occurred unless specified.
--- NOTE | 2021-01-20 14:24 | PM.OP ---
Brief Operative Note Date of Service: 01/20/21 Pre-op diagnosis: esophageal stricture Post-op diagnosis: same Procedure: see op note Surgeon: Otoniel Muniz MD Anesthesia: MAC Estimated blood loss (mL): 0 Condition: stable Disposition: PACU
--- NOTE | 2021-01-20 14:24 | W.PM.OPN ---
Operative Note Operative Note Date of Service: 01/20/21 Narrative: Procedure Description: EGD FLEXIBLE TRANSORAL UPPER GASTROINTESTINAL ENDOSCOPY UPPER ENDOSCOPY Consent: Indications for the procedure and potential complications of bleeding, perforation, reaction to medications and missed diagnosis were discussed with the patient and informed consent was obtained. Instrument: Olympus GIF H 190 J mid size upper endoscope Monitoring: Vital signs and clinical assessment, continuous EKG monitoring, Pulse oximetry, Carbon Dioxide monitoring and blood pressure monitoring were done throughout the procedure. Procedure: The patient was placed in the left lateral decubitis position and pre-procedure medications were administered and a bite block was placed. The endoscope was inserted into the mouth and advanced under direct vision to the third part of duodenum. A careful inspection was made as the upper endoscope was withdrawn including a retroflexed examination of the proximal stomach; Findings and interventions are described below. Findings: Macerated esophageal tissue at distal esophagus with friability and granularity, narrow at GEJ, couldn;t pass regular EGD scope, was able to push slim scope thru with gentle pressure. Balloon dilation done to 10 mm and was then able to get regular EGD scope thru with gentle pressure. Bx taken from distal esophagus. A moderately large sliding hiatal hernia noted about 4 cm, no mass at GEJ on retroflexion. Intervention: Biopsies as noted above, balloon dilation Impression/Findings: stricture, possibly malignant Impression/Findings: stricture hiatal hernia PLAN: cont with high dose PPI recall him back in 1-2 weeks to try to updilate, also I discussed temporary stent placement with him, might consider this after he see Thoracic surgery soft diet, small pieces, chew thoroughly. might repeat CT chest
[2021-01-20 15:15] VITALS: BP 122/86; PULSE 104; RESP 16; TEMP 36.4; O2SAT 100
[2021-01-20 15:30] VITALS: BP 128/87; PULSE 89; RESP 18; TEMP 36.8; O2SAT 99
== END 2021-01-20 17:00 | disposition home or self-care (01) ==
PROVIDERS: Visit Provider Internal Medicine Gastroenterology
PROC: 0DJ08ZZ Inspection of Upper Intestinal Tract, Via Natural or Artificial Opening Endoscopic (ICD-10-PCS; CPT 43235; principal; 2021-01-20 14:00)
DX: K22.2 Esophageal obstruction (principal); K22.10 Ulcer of esophagus without bleeding; F10.20 Alcohol dependence, uncomplicated; K29.70 Gastritis, unspecified, without bleeding; K44.9 Diaphragmatic hernia without obstruction or gangrene; I10 Essential (primary) hypertension; E11.9 Type 2 diabetes mellitus without complications; Z79.4 Long term (current) use of insulin; Z79.899 Other long term (current) drug therapy
CPT/HCPCS: 43249; 43239; 82947; 88305; C1726

== ENCOUNTER → 2021-01-24 09:35 | Outpatient (BNVA) | payer MEDICAID, SELFPAY | PROVIDERS: Visit Provider Internal Medicine Gastroenterology ==

== ENCOUNTER → 2021-01-31 09:16 | Outpatient (BNVA) | payer MEDICAID, SELFPAY | PROVIDERS: Visit Provider Surgery | DX: K22.2 Esophageal obstruction (principal); K29.90 Gastroduodenitis, unspecified, without bleeding | CPT/HCPCS: 99212 ==

== ENCOUNTER 2021-02-03 07:42 | Day surgery (SDC) | payer MEDICAID, SELFPAY ==
[2021-01-27 20:11] VITALS: BMI 21.2
[2021-02-03 07:46] VITALS: BP 139/72; PULSE 88; RESP 18; TEMP 36.1; O2SAT 100
--- NOTE | 2021-02-03 07:51 | HO.ANESPROP2 ---
[facility] Active Problems Active Problems: All Active Problems (Updated 01/24/21 @ 09:56 by Otoniel Muniz MD) Leukocytosis (Acute) Gastritis and duodenitis (Acute) Esophageal stricture (Acute) Hypophosphatemia (Acute) Supraventricular tachycardia (Acute) Hypomagnesemia (Acute) Type 2 diabetes mellitus (Acute) Past Medical History Medical History Acute alcoholic gastritis Alcohol use disorder, severe, dependence Alcoholism Depressed Diabetes Esophageal stricture Gastritis GIB (gastrointestinal bleeding) Head injury HTN (hypertension) Hypomagnesemia Hypophosphatemia Odynophagia Pancreatitis Seizures Supraventricular tachycardia Type 2 diabetes mellitus Family History Family History Father Diabetes Surgical History Surgical History H/O colonoscopy History of esophagogastroduodenoscopy (EGD) Social History Social History Household Members: Significant Other Housing: House Are you a primary school child care attendant to a significant other at home: No Do you presently have visiting nurse or other home services: No Alcohol intake: current Alcohol intake frequency: does not drink Smoking Status: Unknown if ever smoked Smoked in Last 30 Days: No Second Hand Smoke Exposure: No Use of substances other than those prescribed or required for medical reasons: No Substance Use Type Other:: ETOH Advance Directives: No Advance Directives Information Provided: Yes Recently lost weight without trying: Yes service: No Current occupational status: unemployed and disabled Meds Allergies Allergy/AdvReac Type Severity Reaction Status Date / Time No Known Allergies Allergy Verified 01/31/21 09:21 Active Medications: Current Medications Generic Name Dose Route Start Last Admin Trade Name Freq PRN Reason Stop Dose Admin Lactated Ringer's 1,000 mls @ 50 mls/hr 02/03/21 07:30 Lr IV .Q20H [facility] Home Medications Medication Instructions Recorded Confirmed Last Taken Type bupropion HCl 100 mg PO DAILY 11/13/20 01/31/21 Unknown History dicyclomine 10 mg PO TID PRN 11/13/20 01/31/21 Unknown History folic acid 1 mg PO DAILY 11/13/20 01/31/21 Unknown History lisinopril 20 mg PO DAILY 11/13/20 01/31/21 Unknown History multivitamin 1 tab PO DAILY 11/13/20 01/31/21 Unknown History thiamine HCl (vitamin B1) 100 mg PO DAILY 11/13/20 01/31/21 Unknown History trazodone 50 mg PO BEDTIME 11/13/20 01/31/21 Unknown History omeprazole 40 mg PO BID 12/11/20 01/31/21 Unknown History Exam Exam Date and Time: February 03, 2021 0751 Height,Weight and Vital Signs: Height 5 ft 8 in Weight 63.503 kg Last Vital Signs Temp 97 F 02/03/21 07:46 Pulse 88 02/03/21 07:46 Resp 18 02/03/21 07:46 BP 139/72 02/03/21 07:46 Pulse Ox 100 02/03/21 07:46 Airway Mallampati Class: II TM Dist: >3cm Neck ROM: Full Loose/Missing/Broken Teeth: No Heart: RRR Lungs: CTA Assessment and Plan Assessment Anesthesia Assessment: Anesthesia Plan Discussed and Chart Reviewed Final Anesthetic Review NPO: Yes ASA Class: III Final Preanesthetic Review: Meds/Allgs Chart Reviewed, Consent Obtained/Reviewed and Anes Risks/Benef Reviewed Patient Risk: Intermediate Anesthetic Plan Anesthetic Plan: MAC: Disposition: Standard PACU
[2021-02-03 07:55] LABS: Glucose, Whole Blood 211 mg/dL (60-115)
[2021-02-03] MEDS: Lactated Ringers 1,000 ML 50 ML IV (08:25)
--- NOTE | 2021-02-03 08:28 | MHC.SHP ---
Pre-Procedural Eval Section B Chief Complaint: epigastric pain Relevant Family History (Specify if Yes): No Relevant Social History: None Present Medications: see Short Stay Collaborative assessment Medical History: Significant History History of Previous Operations: Relevant previous surgery/procedure and date(s) (Acute alcoholic gastritis Alcohol use disorder, severe, dependence Alcoholism Depressed Diabetes Esophageal stricture Gastritis GIB (gastrointestinal bleeding) Head injury HTN (hypertension) Hypomagnesemia Hypophosphatemia Odynophagia Pancreatitis Seizures Supraventricular tachycardia Type 2 diabete) Allergies: Allergies Allergy/AdvReac Type Severity Reaction Status Date / Time No Known Allergies Allergy Verified 01/31/21 09:21 Review of Systems Sugical H&P ROS: Negative: Constitution, Cardiovascular, Respiratory, Neurological, Psychiatric, Hem-Onc, Allergic/Immunologic, Gastrointestinal, Genitourinary, Musculoskeletal, Integumentary, Endocrine and Eyes/Ears/Nose/Throat Exam Surgical H&P Exam: Normal: HEENT, Normal: Heart, Normal: Lungs, Normal: Extremities, Normal: Abdomen, Normal: Skin and Normal: Neurological Plan Diagnosis/Plan: Unchanged I have reviewed the history and physical and performed a pertinent physical examination on my patient. No changes have occurred unless specified. EGD and dilation, bx
--- NOTE | 2021-02-03 08:30 | PM.OP ---
Brief Operative Note Date of Service: 02/03/21 Pre-op diagnosis: dysphagia Post-op diagnosis: same Procedure: see op note Surgeon: Otoniel Muniz MD Anesthesia: MAC Estimated blood loss (mL): 0 Condition: stable Disposition: PACU
--- NOTE | 2021-02-03 08:30 | W.PM.OPN ---
Operative Note Operative Note Date of Service: 02/03/21 Narrative: Procedure Description: EGD FLEXIBLE TRANSORAL UPPER GASTROINTESTINAL ENDOSCOPY UPPER ENDOSCOPY Consent: Indications for the procedure and potential complications of bleeding, perforation, reaction to medications and missed diagnosis were discussed with the patient and informed consent was obtained. Instrument: Olympus GIF H 190 J mid size upper endoscope Monitoring: Vital signs and clinical assessment, continuous EKG monitoring, Pulse oximetry, Carbon Dioxide monitoring and blood pressure monitoring were done throughout the procedure. Procedure: The patient was placed in the left lateral decubitis position and pre-procedure medications were administered and a bite block was placed. The endoscope was inserted into the mouth and advanced under direct vision to the third part of duodenum. A careful inspection was made as the upper endoscope was withdrawn including a retroflexed examination of the proximal stomach; Findings and interventions are described below. Findings: Macerated esophageal tissue at distal esophagus with friability and granularity, narrow at GEJ, couldn;t pass regular EGD scope, balloon dilation done to 13 mm and then scope able to pass easily. Bx taken from distal esophagus. A moderately large sliding hiatal hernia noted about 4 cm, no mass at GEJ on retroflexion. Stomach and duodenum appeared normal Intervention: Biopsies as noted above, balloon dilation Impression/Findings: stricture, possibly malignant Impression/Findings: stricture hiatal hernia PLAN: cont with high dose PPI recall him back in 1-2 weeks to try to updilate, temporary stent placement also an option soft diet, small pieces, chew thoroughly. might repeat CT chest, has already been referred to [facility] for EUS, awaiting to hear
[2021-02-03 08:56] VITALS: BP 125/77; PULSE 84; RESP 16; TEMP 36.3; O2SAT 99
[2021-02-03 09:11] VITALS: BP 133/78; PULSE 80; RESP 18; O2SAT 100
== END 2021-02-03 10:13 | disposition home or self-care (01) ==
PROVIDERS: Visit Provider Internal Medicine Gastroenterology
PROC: (CPT 43249; principal; 2021-02-03 08:30)
DX: K22.2 Esophageal obstruction (principal); R10.13 Epigastric pain; K44.9 Diaphragmatic hernia without obstruction or gangrene; I10 Essential (primary) hypertension; E11.9 Type 2 diabetes mellitus without complications; Z87.19 Personal history of other diseases of the digestive system; Z79.4 Long term (current) use of insulin; Z79.899 Other long term (current) drug therapy; F10.21 Alcohol dependence, in remission
CPT/HCPCS: 43249; 43239; 82947; 88305; C1726; J3010

== ENCOUNTER → 2021-02-13 12:10 | Outpatient (BNVA) | payer MEDICAID, SELFPAY | PROVIDERS: Visit Provider Internal Medicine ==

== ENCOUNTER 2021-02-14 08:51 | Outpatient (REF) | payer MEDICAID, SELFPAY ==
[2021-02-14 09:55] LABS: Estimated Average Glucose 240 mg/dL
[2021-02-14 10:11] LABS: Alanine Aminotransferase 19 U/L (0-40); Albumin Level 3.7 g/dL (3.5-5.0); Alkaline Phosphatase 88 U/L (39-117); Anion Gap 11 (12-20); Aspartate Amino Transferase 22 U/L (5-37); Blood Urea Nitrogen 21 mg/dL (9-16); Calcium 9.1 mg/dL (8.4-10.2); Carbon Dioxide 27 mmol/L (22-29); Chloride 102 mmol/L (96-108); Cholesterol 123 mg/dL; Estimated Glomerular Filt Rate > 60; Glucose Random 285 mg/dL (60-115); HDL Cholesterol 46 mg/dL; LDL Cholesterol Calculated 58 mg/dl; Potassium 4.6 mmol/L (3.3-5.1); Sodium 135 mmol/L (135-145); Total Protein 7.6 g/dL (6.5-8.0); Triglycerides 95 mg/dL
[2021-02-14 10:21] LABS: Bilirubin Total 0.4 mg/dL (0.0-1.0)
[2021-02-14 10:32] LABS: Free T4 (Free Thyroxine) 0.97 ng/dL (0.71-1.85); Thyroid Stimulating Hormone 0.52 uIU/mL (0.32-4.0); Vitamin D 25-OH Total 23.3 ng/mL (>30)
[2021-02-14 11:44] LABS: Creatinine Urine 129.97 mg/dL; Microalbum/Creatinine Ratio Ur 310.8 ug/mg cr
[2021-02-16 12:01] LABS: LDL Cholesterol Direct 60 mg/dL (<100)
[2021-02-16 17:06] LABS: C Peptide 0.92 ng/mL (0.80-3.85)
[2021-02-19 16:01] LABS: Glutamic acid decarboxylase Ab <5 IU/mL (<5)
[2021-02-19 18:02] LABS: Insulinoma associated 2 aatb <5.4 U/mL (<5.4)
[2021-02-19 22:46] LABS: Islet Cell Antibody Screen NEGATIVE (NEGATIVE)
== END 2021-02-14 08:52 | disposition home or self-care (01) ==
LOC: HO.LAB 08:51
PROVIDERS: Visit Provider Internal Medicine
DX: K22.2 Esophageal obstruction (principal); E55.9 Vitamin D deficiency, unspecified; E11.9 Type 2 diabetes mellitus without complications
CPT/HCPCS: 36415; 80053; 80061; 82043; 82306; 83036; 83721; 84439; 84443; 84681; 86255; 86341

== ENCOUNTER 2021-02-26 10:49 | Day surgery (SDC) | payer MEDICAID, SELFPAY ==
[2021-02-26 11:06] VITALS: BMI 22.0
[2021-02-26 11:07] VITALS: BP 137/66; PULSE 98; RESP 18; TEMP 36.8; O2SAT 97
--- NOTE | 2021-02-26 11:07 | HO.ANESPROP2 ---
[facility] Active Problems Active Problems: All Active Problems (Updated 02/20/21 @ 08:25 by Janay Michael) Leukocytosis (Acute) Gastritis and duodenitis (Acute) Vitamin D deficiency (Acute) HLD (hyperlipidemia) (Acute) HTN (hypertension) (Acute) Esophageal stricture (Acute) Hypophosphatemia (Acute) Supraventricular tachycardia (Acute) Hypomagnesemia (Acute) Type 2 diabetes mellitus (Acute) Past Medical History Medical History Acute alcoholic gastritis Alcohol use disorder, severe, dependence Alcoholism Depressed Diabetes Esophageal stricture Gastritis GIB (gastrointestinal bleeding) Head injury HLD (hyperlipidemia) HTN (hypertension) Hypomagnesemia Hypophosphatemia Odynophagia On beta cher at home Pancreatitis Seizures Supraventricular tachycardia Type 2 diabetes mellitus Vitamin D deficiency Family History Family History Father Diabetes Surgical History Surgical History H/O colonoscopy History of esophagogastroduodenoscopy (EGD) Social History Social History Household Members: Significant Other Housing: House Alcohol intake: current Alcohol intake frequency: does not drink Smoking Status: Never smoker Second Hand Smoke Exposure: No Advance Directives: No Advance Directives Information Provided: Yes service: No Current occupational status: unemployed and disabled Meds Allergies Allergy/AdvReac Type Severity Reaction Status Date / Time No Known Allergies Allergy Verified 02/14/21 10:01 Active Medications: Current Medications Generic Name Dose Route Start Last Admin Trade Name Freq PRN Reason Stop Dose Admin Lactated Ringer's 1,000 mls @ 50 mls/hr 02/26/21 07:15 Lr IV .Q20H GOSIA Home Medications Medication Instructions Recorded Confirmed Last Taken Type bupropion HCl 100 mg PO DAILY 11/13/20 02/20/21 Unknown History dicyclomine 10 mg PO TID PRN 11/13/20 02/20/21 Unknown History folic acid 1 mg PO DAILY 11/13/20 02/20/21 Unknown History lisinopril 20 mg PO DAILY 11/13/20 02/20/21 Unknown History multivitamin 1 tab PO DAILY 11/13/20 02/20/21 Unknown History thiamine HCl (vitamin B1) 100 mg PO DAILY 11/13/20 02/20/21 Unknown History trazodone 50 mg PO BEDTIME 11/13/20 02/20/21 Unknown History omeprazole 40 mg PO BID 12/11/20 02/20/21 Unknown History insulin aspart U-100 100 unit/mL 10 unit SUBCUT TID 02/13/21 02/20/21 Unknown History (3 mL) subcutaneous pen insulin detemir U-100 100 unit/mL 35 unit SUBCUT BEDTIME ml 02/13/21 02/20/21 Unknown History (3 mL) subcutaneous pen Exam Exam Date and Time: February 26, 2021 1107 Airway Mallampati Class: II TM Dist: >3cm Neck ROM: Full Loose/Missing/Broken Teeth: Yes (Poor dental hygiene, no lose teeth but reports bleeding gums and exposed roots) Heart: RRR Assessment and Plan Assessment Anesthesia Assessment: Anesthesia Plan Discussed and Chart Reviewed Final Anesthetic Review NPO: Yes ASA Class: III Final Preanesthetic Review: No Changes in Pt Med Stat, Meds/Allgs Chart Reviewed, Consent Obtained/Reviewed and Anes Risks/Benef Reviewed Patient Risk: Intermediate Procedure Risk: Low Anesthetic Plan Anesthetic Plan: MAC: Disposition: Standard PACU
[2021-02-26 11:08] LABS: Glucose, Whole Blood 123 mg/dL (60-115)
--- NOTE | 2021-02-26 11:27 | MHC.SHP ---
Pre-Procedural Eval Section B Chief Complaint: esophageal obstruction Relevant Family History (Specify if Yes): No Relevant Social History: None (ex heavy drinker) Present Medications: see Short Stay Collaborative assessment Medical History: Significant History (Acute alcoholic gastritis Alcohol use disorder, severe, dependence Alcoholism Depressed Diabetes Esophageal stricture Gastritis GIB (gastrointestinal bleeding) Head injury HLD (hyperlipidemia) HTN (hypertension) Hypomagnesemia Hypophosphatemia Odynophagia On beta cher at home Pancreatitis Seizure) History of Previous Operations: Relevant previous surgery/procedure and date(s) Allergies: Allergies Allergy/AdvReac Type Severity Reaction Status Date / Time No Known Allergies Allergy Verified 02/14/21 10:01 Review of Systems Sugical H&P ROS: Negative: Constitution, Cardiovascular, Respiratory, Neurological, Psychiatric, Hem-Onc, Allergic/Immunologic, Gastrointestinal, Genitourinary, Musculoskeletal, Integumentary, Endocrine and Eyes/Ears/Nose/Throat Exam Surgical H&P Exam: Normal: HEENT, Normal: Heart, Normal: Lungs, Normal: Extremities, Normal: Abdomen, Normal: Skin and Normal: Neurological Plan Diagnosis/Plan: Unchanged I have reviewed the history and physical and performed a pertinent physical examination on my patient. No changes have occurred unless specified.
--- NOTE | 2021-02-26 11:29 | PM.OP ---
Brief Operative Note Date of Service: 02/26/21 Pre-op diagnosis: esophageal stricture Post-op diagnosis: same Procedure: see op note Surgeon: Otoniel Muniz MD Anesthesia: MAC Estimated blood loss (mL): 0 Condition: stable Disposition: PACU
--- NOTE | 2021-02-26 11:29 | W.PM.OPN ---
Operative Note Operative Note Date of Service: 02/26/21 Narrative: Procedure Description: EGD FLEXIBLE TRANSORAL UPPER GASTROINTESTINAL ENDOSCOPY UPPER ENDOSCOPY Consent: Indications for the procedure and potential complications of bleeding, perforation, reaction to medications and missed diagnosis were discussed with the patient and informed consent was obtained. Instrument: Olympus GIF H 190 J mid size upper endoscope Monitoring: Vital signs and clinical assessment, continuous EKG monitoring, Pulse oximetry, Carbon Dioxide monitoring and blood pressure monitoring were done throughout the procedure. Procedure: The patient was placed in the left lateral decubitis position and pre-procedure medications were administered and a bite block was placed. The endoscope was inserted into the mouth and advanced under direct vision to the third part of duodenum. A careful inspection was made as the upper endoscope was withdrawn including a retroflexed examination of the proximal stomach; Findings and interventions are described below. Findings: Macerated esophageal tissue at distal esophagus with friability and granularity, narrow at GEJ, couldn;t pass regular EGD scope, balloon dilation done to 11 mm and then scope able to pass easily. Bx taken from distal esophagus and GEJ A moderately large sliding hiatal hernia noted about 4 cm, no mass at GEJ on retroflexion. Stomach and duodenum appeared normal Intervention: Biopsies as noted above, balloon dilation Impression/Findings: stricture, possibly malignant Impression/Findings: stricture hiatal hernia PLAN: cont with high dose PPI recall him back in 2-4 weeks to try to updilate, temporary stent placement also an option as discussed before soft diet, small pieces, chew thoroughly. might repeat CT chest, had already been referred to [facility] for EUS but he was unable to go due to transport issues, will see if [facility] can accommodate him
[2021-02-26] MEDS: Lactated Ringers 1,000 ML 50 ML IV (12:00)
[2021-02-26 13:18] VITALS: BP 129/70; PULSE 96; RESP 16; TEMP 37.1; O2SAT 97
[2021-02-26 13:46] VITALS: BP 151/82; PULSE 89; RESP 18; TEMP 37.4; O2SAT 98
== END 2021-02-26 15:10 | disposition home or self-care (01) ==
PROVIDERS: Visit Provider Internal Medicine Gastroenterology
PROC: 0DJ08ZZ Inspection of Upper Intestinal Tract, Via Natural or Artificial Opening Endoscopic (ICD-10-PCS; CPT 43235; principal; 2021-02-26 11:50)
DX: K22.2 Esophageal obstruction (principal); K20.80 Other esophagitis without bleeding; K44.9 Diaphragmatic hernia without obstruction or gangrene; I10 Essential (primary) hypertension; I47.1 Supraventricular tachycardia; D72.829 Elevated white blood cell count, unspecified; E55.9 Vitamin D deficiency, unspecified; E11.9 Type 2 diabetes mellitus without complications; E83.39 Other disorders of phosphorus metabolism; E83.42 Hypomagnesemia; Z79.4 Long term (current) use of insulin; Z79.899 Other long term (current) drug therapy
CPT/HCPCS: 43249; 43239; 82947; 88305; C1726; J3010

== ENCOUNTER 2021-03-04 12:07 | Inpatient (IN) | payer MEDICAID, SELFPAY ==
--- NOTE | ~2021-03-04 | XR_ITS ---
EXAMINATION: XR CHEST CLINICAL INFORMATION: Cough. Hematemesis. COMPARISON: Previous chest x-ray most recent November [address] December 2020 TECHNIQUE: Frontal view of the chest was obtained. FINDINGS: The cardiac and mediastinal contours are stable. There are symmetric nodular densities at both lung bases, question representing nipple shadows. No pulmonary nodule is seen on previous chest CT from December 2020. The lungs are otherwise clear. There is no pleural effusion or pneumothorax. There are degenerative changes of the spine and right shoulder joint. There is ossification of the left coracoclavicular ligament. XR/XR chest 1V IMPRESSION: No evidence for acute disease in the chest. Bilateral symmetric nodular densities at the lung bases probably representing nipple shadows.
--- NOTE | ~2021-03-04 | XR_ITS ---
EXAMINATION: XR ABDOMEN WITH DECUBITUS VIEWS CLINICAL INDICATION: Status post endoscopy. Question perforation COMPARISON: Chest x-ray November 13, [address] chest, abdomen and pelvis December 12, 2020 TECHNIQUE: Upright views of the chest in addition to supine and decubitus views of the abdomen were obtained. FINDINGS: Cardiac silhouette is normal in size. The lungs are well aerated. There is no lobar consolidation. No pleural effusion or pneumothorax. No dilated loops of air-filled small bowel to suggest an obstructive process. The colon is relatively decompressed. No gross free intra-abdominal air appreciated. Prominent coarse pancreatic calcifications again noted. Mild degenerative changes of the thoracolumbar spine. XR/XR abdomen w decubitus IMPRESSION: No radiographic evidence of free intra-abdominal air.
--- NOTE | ~2021-03-04 | XR_ITS ---
EXAMINATION: XR CHEST CLINICAL INFORMATION: Fever. COMPARISON: 03/05/2021 TECHNIQUE: 2 views of the chest were obtained. FINDINGS: Normal cardiac and mediastinal silhouette. Cardiac leads overlie the chest. No focal consolidation, effusion, edema or pneumothorax. Stable subtle nodular densities projected over the lung bases, probably nipple shadows. Thoracic spine degeneration. XR/XR chest 2V IMPRESSION: No evidence of focal consolidation.
[2021-03-04 12:17] VITALS: BP 134/62; PULSE 127; RESP 18; TEMP 36.9; O2SAT 99; BMI 27.6
--- NOTE | 2021-03-04 12:48 | ED.GENADULT ---
HPI - General Adult General Chief complaint: Nausea/Vomiting/Diarrhea <JEREL Sweet Last Filed: 03/04/21 21:46> Stated complaint: vomiting <JEREL Sweet Last Filed: 03/04/21 21:46> Time Seen by Provider: 03/04/21 12:29 <JEREL Sweet Last Filed: 03/04/21 21:46> Source: patient <JEREL Sweet Last Filed: 03/04/21 21:46> Mode of arrival: ambulatory <JEREL Sweet Last Filed: 03/04/21 21:46> Limitations: no limitations <JEREL Sweet Last Filed: 03/04/21 21:46> History of Present Illness HPI narrative: Patient presents to the ED for abdominal pain, nausea vomiting. Patient states also vomiting blood for the past 3 days. Patient denies any chest pain or shortness of breath. Patient states no fever chills. Patient denies any blood in stool. Patient is known history of alcohol abuse and is not compliant with his diabetes medication. Patient status post esophageal stricture dilation surgery. <JEREL Sweet Last Filed: 03/04/21 21:46> Related Data Home medications: Home Medications Medication Instructions Recorded Confirmed bupropion HCl 100 mg PO DAILY 11/13/20 02/20/21 dicyclomine 10 mg PO TID PRN 11/13/20 02/20/21 folic acid 1 mg PO DAILY 11/13/20 02/20/21 lisinopril 20 mg PO DAILY 11/13/20 02/20/21 multivitamin 1 tab PO DAILY 11/13/20 02/20/21 thiamine HCl (vitamin B1) 100 mg PO DAILY 11/13/20 02/20/21 trazodone 50 mg PO BEDTIME 11/13/20 02/20/21 omeprazole 40 mg PO BID 12/11/20 02/20/21 insulin aspart U-100 100 unit/mL 10 unit SUBCUT TID 02/13/21 02/20/21 (3 mL) subcutaneous pen insulin detemir U-100 100 unit/mL 35 unit SUBCUT BEDTIME ml 02/13/21 02/20/21 (3 mL) subcutaneous pen Previous Rx's Medication Instructions Recorded Once InnovationsTouch Ultra Blue Test Strip #100 ea 11/16/20 blood-glucose meter [OneTouch #1 ea 11/16/20 Ultra2 Meter] lancets [OneTouch Delica Lancets] #100 ea 11/16/20 lancing device with lancets #1 ea 11/16/20 [OneTouch Delica Plus Lanc Dev] magnesium oxide 400 mg PO BIDPC #60 tab 11/16/20 metoprolol tartrate 25 mg PO BID #60 tab 11/16/20 naltrexone 50 mg PO DAILY #30 tab 11/16/20 pen needle, diabetic #100 ea 11/16/20 omeprazole magnesium 20 mg PO BID #60 ea 01/07/21 sucralfate 10 ml PO BID #420 ml 01/07/21 famotidine 40 mg/5 mL (8 mg/mL) 40 mg PO BEDTIME 30 Days #150 ml 01/09/21 oral suspension food supplemt, lactose-reduced 1 ea PO BID 30 Days #60 bottle 01/24/21 <JEREL Sweet Last Filed: 03/04/21 21:46> Allergies/adverse reactions: Allergies Allergy/AdvReac Type Severity Reaction Status Date / Time No Known Allergies Allergy Verified 02/14/21 10:01 <JEREL Sweet Last Filed: 03/04/21 21:46> Review of Systems Review of Systems: Yes all other systems are reviewed and are negative <JEREL Sweet Last Filed: 03/04/21 21:46> Constitutional: Constitutional: Reports as per HPI and Reports no additional constitutional complaints <JEREL Sweet Last Filed: 03/04/21 21:46> Eyes: Eyes: Reports as per HPI and Reports no additional eye complaints <JEREL Sweet Last Filed: 03/04/21 21:46> ENT: Reports system reviewed and no additional complaints, except as documented and Reports as per HPI <JEREL Sweet Last Filed: 03/04/21 21:46> Cardiovascular: Cardiovascular: Reports as per HPI and Reports no additional cardiovascular complaints <JEREL Sweet Last Filed: 03/04/21 21:46> Respiratory: Respiratory: Reports as per HPI and Reports no additional respiratory complaints <JEREL Sweet Last Filed: 03/04/21 21:46> Gastrointestinal: Gastrointestinal: Reports as per HPI, Reports no additional gastrointestinal complaints, Reports abdominal pain (Epigastric.) and Reports hematemesis <JEREL Sweet - Last Filed: 03/04/21 21:46> Genitourinary: Genitourinary: Reports no additional male genitourinary complaints and Reports as per HPI <JEREL Sweet - Last Filed: 03/04/21 21:46> Musculoskeletal: Musculoskeletal: Reports no additional musculoskeletal complaints and Reports as per HPI <JEREL Sweet - Last Filed: 03/04/21 21:46> Neurologic: Reports system reviewed and no additional complaints, except as documented and Reports as per HPI <JEREL Sweet Last Filed: 03/04/21 21:46> [facility] Past Medical History Medical History: Medical History Acute alcoholic gastritis Alcohol use disorder, severe, dependence Alcoholism Depressed Diabetes Esophageal stricture Gastritis GIB (gastrointestinal bleeding) Head injury HLD (hyperlipidemia) HTN (hypertension) Hypomagnesemia Hypophosphatemia Odynophagia On beta cher at home Pancreatitis Seizures Supraventricular tachycardia Type 2 diabetes mellitus Vitamin D deficiency <JEREL Sweet - Last Filed: 03/04/21 21:46> Surgical History: Surgical History H/O colonoscopy History of esophagogastroduodenoscopy (EGD) <JEREL Sweet - Last Filed: 03/04/21 21:46> Family History Family History: Family History Father Diabetes <JEREL Sweet - Last Filed: 03/04/21 21:46> Social History Social History: Social History Household Members: Significant Other Housing: House Alcohol intake: current Alcohol intake frequency: does not drink Smoking Status: Never smoker Second Hand Smoke Exposure: No Advance Directives: No Advance Directives Information Provided: No service: No Current occupational status: unemployed and disabled <JEREL Sweet Last Filed: 03/04/21 21:46> Physical Exam Vital Signs: Vital Signs: Last Vital Signs Temp 98.5 F 03/04/21 16:05 Pulse 118 H 03/04/21 18:12 Resp 18 03/04/21 18:12 BP 138/54 L 03/04/21 18:12 Pulse Ox 96 03/04/21 18:12 Body Mass Index 27.6 <JEREL Sweet Last Filed: 03/04/21 21:46> Vital Signs: Last Vital Signs Temp 98.5 F 03/04/21 16:05 Pulse 118 H 03/04/21 18:12 Resp 18 03/04/21 18:12 BP 138/54 L 03/04/21 18:12 Pulse Ox 96 03/04/21 18:12 Body Mass Index 27.6 <Nathalia Johnson MD - Last Filed: 03/04/21 21:31> Const: General: cooperative, healthy appearing, comfortable, no acute distress, well developed, alert and acute distress <JEREL Sweet Last Filed: 03/04/21 21:46> HENMT: Head: Yes normal to inspection and Yes No palpable skull fracture present <JEREL Sweet Last Filed: 03/04/21 21:46> Eyes: General: appearance normal, both eyes and all related structures <JEREL Sweet Last Filed: 03/04/21 21:46> Neck: Neck: Yes normal visual inspection, Yes full ROM, Yes no lymphadenopathy, Yes no meningeal signs, Yes trachea midline, Yes supple and No tender <JEREL Sweet Last Filed: 03/04/21 21:46> Chest: Chest palpation & inspection: normal inspection of the chest and normal palpation of entire chest wall <JEREL Sweet Last Filed: 03/04/21 21:46> Resp: Effort & Inspection: normal respiratory effort and able to speak in complete sentences <JEREL Sweet Last Filed: 03/04/21 21:46> Auscultation: clear to auscultation bilaterally <JEREL Sweet Last Filed: 03/04/21 21:46> Cardio: Jugular venous distension: no JVD <JEREL Sweet Last Filed: 03/04/21 21:46> Heart sounds: S1 normal heart sound present and S2 normal heart sound present <JEREL Sweet Last Filed: 03/04/21 21:46> GI: Inspection: Yes normal to inspection <JEREL Sweet Last Filed: 03/04/21 21:46> Palpation (GI): Soft to palpation, not firm, Tenderness to palpation present (GI) in the epigastrum, no guarding and not rigid <JEREL Sweet Last Filed: 03/04/21 21:46> : General: No CVA tenderness and Yes no CVA tenderness <JEREL Sweet Last Filed: 03/04/21 21:46> Back/Spine/Pelvis: Back: no CVA tenderness, No CVA tenderness and No back tenderness <JEREL Sweet - Last Filed: 03/04/21 21:46> Skin: General skin exam: no rashes or lesions noted and elasticity normal <JEREL Sweet Last Filed: 03/04/21 21:46> Neuro: General: gait normal, no meningeal signs and CN's II-XI intact bilaterally <JEREL Sweet Last Filed: 03/04/21 21:46> Cranial nerves: Yes CN's II-XII intact bilaterally <JEREL Sweet Last Filed: 03/04/21 21:46> Extrem: General: Yes normal to inspection and Yes full ROM <JEREL Sweet Last Filed: 03/04/21 21:46> Psych: Appearance: grossly normal, well kempt and not disheveled <JEREL Sweet Last Filed: 03/04/21 21:46> Course Course Course Narrative: Patient will have labs drawn to make sure is not anemic. Guaiac stool sent. Patient started on Protonix and GI cocktail. Patient having status post stricture dilation will do KUB and upright chest to make sure there is no free air/perforation. Also due to patient being noncompliant diabetic will see patient is in DKA. <JEREL Sweet Last Filed: 03/04/21 21:46> Reevaluation(s) Reevaluation #1: Patient is severely hyperglycemic and lasting of 9. Awaiting acetone and anion gap level. Patient will receive 4 L of fluid and IV insulin. There is no improvement after repeat chemistry patient will be placed on insulin drip. <JEREL Sweet Last Filed: 03/04/21 21:46> Reevaluation #2: Patient Anion gap is elevated. Patient labs show RONN. Awaiting VBG results. <JEREL Sweet - Last Filed: 03/04/21 21:46> Time: 14:27 <JEREL Sweet Last Filed: 03/04/21 21:46> Reevaluation #3: Nurse Ulysses brought me to the patient's room which showed that patient vomited had coffee-ground emesis on the bed on the floor. Angulo serology is Dr. Wagoner was paged waiting for her to call back. Patient's VBG stable <JEREL Sweet Last Filed: 03/04/21 21:46> Time: 14:35 <JEREL Sweet - Last Filed: 03/04/21 21:46> Additional Reevaluation(s): Dr. Muniz of Gastroenterology came and evaluated patient and he does not recommend octreotide. He states patient will get a repeat endoscopy in the morning. Patient is not septic. Patient has elevated white blood cell count and elevated lactate due to DKA induced vomitting. Patient is not septic. Upper abdominal x-ray negative for signs of pneumonia or perforation. 20:00; repeat chemistry shows improvement anion gap, but patient still in DKA. Patient started on insulin drip at 7 mL per hour, but then lowered to 4 units/hour. Will consult ICU. 21:14: Spoke with Dr. Noel of ICU who accepted patient and will talk to his physician surgical services assistant. 21:40; Dr. Noel spoke with Dr. Payne and patient will be managed in the ED until he come off the insulin drip and then will be admitted to hospitalist. No need for transfer. Case signed out to Dr. Payne <JEREL Sweet Last Filed: 03/04/21 21:46> Medical Decision Making MDM Narrative Medical decision making narrative: GI bleed. DKA. RONN <JEREL Sweet Last Filed: 03/04/21 21:46> Lab Data Result diagrams: : 03/04/21 13:20 03/04/21 18:12 <JEREL Sweet - Last Filed: 03/04/21 21:46> Labs: Lab Results 03/04/21 03/04/21 03/04/21 Range/Units 13:20 13:20 13:20 WBC 20.7 H (4.8-10.8) X10*3/uL RBC 5.31 (4.60-5.80) X10*6/uL Hgb 12.8 L (14.0-18.0) g/dl Hct 39.8 L (42-52) % MCV 75.0 L (80-98) fL MCH 24.1 L (27.0-33.0) pg MCHC 32.2 (31.0-36.0) g/dl RDW 17.1 H (11.0-16.0) % Plt Count 303 (160-400) X10*3/uL MPV 9.6 (9.4-12.4) fL Immature Gran % (Auto) 0.7 H (0.0-0.4) % Neut % (Auto) 87.4 H (45-73) % Lymph % (Auto) 3.6 L (20-40) % [place] % (Auto) 7.9 (2-11) % Eos % (Auto) 0.3 (0-4) % Baso % (Auto) 0.1 (0-2) % Lymph # (Auto) 0.8 L (1.2-4.9) X10*3/uL [place] # (Auto) 1.6 H (0.1-1.2) X10*3/uL Eos # (Auto) 0.1 (0.0-0.4) X10*3/uL Baso # (Auto) 0.0 (0.0-0.2) X10*3/uL Abs Immat Gran (auto) 0.14 H (0.00-0.03) X10*3/uL Absolute Neuts (auto) 18.1 H (2.0-8.3) X10*3/uL Absolute Nucleated RBC 0.000 (0.0-0.012) X10*3/uL Nucleated RBC % (auto) 0.0 (0.0-0.2) /100WBC Smear Tech's Comments VERIFIED PT 11.1 (10.8-13.0) SEC INR 0.9 (0.9-1.1) APTT 25.8 (24.1-38.0) SEC VBG pH (7.32-7.43) VBG pCO2 mmHg VBG pO2 mmHg VBG HCO3 (22-26) mmol/L VBG O2 Saturation % VBG Base Excess mmol/L Sodium 132 L (135-145) mmol/L Potassium 5.5 H (3.3-5.1) mmol/L Chloride 75 L D (96-108) mmol/L Carbon Dioxide 17 L (22-29) mmol/L Anion Gap 46 H (12-20) BUN 81 H* D (9-16) mg/dL Creatinine 3.85 H (0.5-1.4) mg/dL Estim Creat Clear Calc 23.1 Estimated GFR 16 POC Glucose (60-115) mg/dL Random Glucose 561 H* (60-115) mg/dL Lactic Acid (0.5-2.0) mmol/L Lactic Acid Fup @ 2Hr (0.5-2.0) mmol/L Lactic Acid Fup @ 4Hr (0.5-2.0) mmol/L Calcium 8.4 D (8.4-10.2) mg/dL Total Bilirubin 0.9 (0.0-1.0) mg/dL Direct Bilirubin 0.5 (0.0-0.5) mg/dL AST 34 D (5-37) U/L ALT 25 (0-40) U/L Alkaline Phosphatase 106 D (39-117) U/L Total Protein 7.7 (6.5-8.0) g/dL Albumin 3.7 (3.5-5.0) g/dL Lipase 8 (8-78) U/L Urine Color Urine Appearance Urine pH (5.0-8.0) Ur Specific [place] (1.005-1.025) Urine Protein (NEG-TRACE) MG/DL Urine Glucose (UA) (NEG) MG/DL Urine Ketones (NEG) MG/DL Urine Blood (NEG) Urine Nitrite (NEG) Ur Leukocyte Esterase (NEG) Urine RBC (0) /HPF Urine WBC (0-4) /HPF Ur Squamous Epith Cells /LPF Urine Bacteria /LPF Stool Occult Blood (NEGATIVE) Ethyl Alcohol mg/dL Acetone, Qual Small H (Negative) 03/04/21 03/04/21 03/04/21 Range/Units 13:20 13:20 13:20 WBC (4.8-10.8) X10*3/uL RBC (4.60-5.80) X10*6/uL Hgb (14.0-18.0) g/dl Hct (42-52) % MCV (80-98) fL MCH (27.0-33.0) pg MCHC (31.0-36.0) g/dl RDW (11.0-16.0) % Plt Count (160-400) X10*3/uL MPV (9.4-12.4) fL Immature Gran % (Auto) (0.0-0.4) % Neut % (Auto) (45-73) % Lymph % (Auto) (20-40) % [place] % (Auto) (2-11) % Eos % (Auto) (0-4) % Baso % (Auto) (0-2) % Lymph # (Auto) (1.2-4.9) X10*3/uL [place] # (Auto) (0.1-1.2) X10*3/uL Eos # (Auto) (0.0-0.4) X10*3/uL Baso # (Auto) (0.0-0.2) X10*3/uL Abs Immat Gran (auto) (0.00-0.03) X10*3/uL Absolute Neuts (auto) (2.0-8.3) X10*3/uL Absolute Nucleated RBC (0.0-0.012) X10*3/uL Nucleated RBC % (auto) (0.0-0.2) /100WBC Smear Tech's Comments PT (10.8-13.0) SEC INR (0.9-1.1) APTT (24.1-38.0) SEC VBG pH (7.32-7.43) VBG pCO2 mmHg VBG pO2 mmHg VBG HCO3 (22-26) mmol/L VBG O2 Saturation % VBG Base Excess mmol/L Sodium (135-145) mmol/L Potassium (3.3-5.1) mmol/L Chloride (96-108) mmol/L Carbon Dioxide (22-29) mmol/L Anion Gap (12-20) BUN (9-16) mg/dL Creatinine (0.5-1.4) mg/dL Estim Creat Clear Calc Estimated GFR POC Glucose (60-115) mg/dL Random Glucose (60-115) mg/dL Lactic Acid 9.9 H* (0.5-2.0) mmol/L Lactic Acid Fup @ 2Hr (0.5-2.0) mmol/L Lactic Acid Fup @ 4Hr (0.5-2.0) mmol/L Calcium (8.4-10.2) mg/dL Total Bilirubin (0.0-1.0) mg/dL Direct Bilirubin (0.0-0.5) mg/dL AST (5-37) U/L ALT (0-40) U/L Alkaline Phosphatase (39-117) U/L Total Protein (6.5-8.0) g/dL Albumin (3.5-5.0) g/dL Lipase (8-78) U/L Urine Color Urine Appearance Urine pH (5.0-8.0) Ur Specific [place] (1.005-1.025) Urine Protein (NEG-TRACE) MG/DL Urine Glucose (UA) (NEG) MG/DL Urine Ketones (NEG) MG/DL Urine Blood (NEG) Urine Nitrite (NEG) Ur Leukocyte Esterase (NEG) Urine RBC (0) /HPF Urine WBC (0-4) /HPF Ur Squamous Epith Cells /LPF Urine Bacteria /LPF Stool Occult Blood NEGATIVE (NEGATIVE) Ethyl Alcohol 196 mg/dL Acetone, Qual (Negative) 03/04/21 03/04/21 03/04/21 Range/Units 14:32 16:03 16:07 WBC (4.8-10.8) X10*3/uL RBC (4.60-5.80) X10*6/uL Hgb (14.0-18.0) g/dl Hct (42-52) % MCV (80-98) fL MCH (27.0-33.0) pg MCHC (31.0-36.0) g/dl RDW (11.0-16.0) % Plt Count (160-400) X10*3/uL MPV (9.4-12.4) fL Immature Gran % (Auto) (0.0-0.4) % Neut % (Auto) (45-73) % Lymph % (Auto) (20-40) % [place] % (Auto) (2-11) % Eos % (Auto) (0-4) % Baso % (Auto) (0-2) % Lymph # (Auto) (1.2-4.9) X10*3/uL [place] # (Auto) (0.1-1.2) X10*3/uL Eos # (Auto) (0.0-0.4) X10*3/uL Baso # (Auto) (0.0-0.2) X10*3/uL Abs Immat Gran (auto) (0.00-0.03) X10*3/uL Absolute Neuts (auto) (2.0-8.3) X10*3/uL Absolute Nucleated RBC (0.0-0.012) X10*3/uL Nucleated RBC % (auto) (0.0-0.2) /100WBC Smear Tech's Comments PT (10.8-13.0) SEC INR (0.9-1.1) APTT (24.1-38.0) SEC VBG pH 7.32 (7.32-7.43) VBG pCO2 33 mmHg VBG pO2 96 mmHg VBG HCO3 17 L (22-26) mmol/L VBG O2 Saturation 93.0 % VBG Base Excess -7.2 mmol/L Sodium (135-145) mmol/L Potassium (3.3-5.1) mmol/L Chloride (96-108) mmol/L Carbon Dioxide (22-29) mmol/L Anion Gap (12-20) BUN (9-16) mg/dL Creatinine (0.5-1.4) mg/dL Estim Creat Clear Calc Estimated GFR POC Glucose 348 H (60-115) mg/dL Random Glucose (60-115) mg/dL Lactic Acid (0.5-2.0) mmol/L Lactic Acid Fup @ 2Hr 6.2 H* (0.5-2.0) mmol/L Lactic Acid Fup @ 4Hr (0.5-2.0) mmol/L Calcium (8.4-10.2) mg/dL Total Bilirubin (0.0-1.0) mg/dL Direct Bilirubin (0.0-0.5) mg/dL AST (5-37) U/L ALT (0-40) U/L Alkaline Phosphatase (39-117) U/L Total Protein (6.5-8.0) g/dL Albumin (3.5-5.0) g/dL Lipase (8-78) U/L Urine Color Urine Appearance Urine pH (5.0-8.0) Ur Specific [place] (1.005-1.025) Urine Protein (NEG-TRACE) MG/DL Urine Glucose (UA) (NEG) MG/DL Urine Ketones (NEG) MG/DL Urine Blood (NEG) Urine Nitrite (NEG) Ur Leukocyte Esterase (NEG) Urine RBC (0) /HPF Urine WBC (0-4) /HPF Ur Squamous Epith Cells /LPF Urine Bacteria /LPF Stool Occult Blood (NEGATIVE) Ethyl Alcohol mg/dL Acetone, Qual (Negative) 03/04/21 03/04/21 03/04/21 Range/Units 18:12 18:12 18:41 WBC (4.8-10.8) X10*3/uL RBC (4.60-5.80) X10*6/uL Hgb (14.0-18.0) g/dl Hct (42-52) % MCV (80-98) fL MCH (27.0-33.0) pg MCHC (31.0-36.0) g/dl RDW (11.0-16.0) % Plt Count (160-400) X10*3/uL MPV (9.4-12.4) fL Immature Gran % (Auto) (0.0-0.4) % Neut % (Auto) (45-73) % Lymph % (Auto) (20-40) % [place] % (Auto) (2-11) % Eos % (Auto) (0-4) % Baso % (Auto) (0-2) % Lymph # (Auto) (1.2-4.9) X10*3/uL [place] # (Auto) (0.1-1.2) X10*3/uL Eos # (Auto) (0.0-0.4) X10*3/uL Baso # (Auto) (0.0-0.2) X10*3/uL Abs Immat Gran (auto) (0.00-0.03) X10*3/uL Absolute Neuts (auto) (2.0-8.3) X10*3/uL Absolute Nucleated RBC (0.0-0.012) X10*3/uL Nucleated RBC % (auto) (0.0-0.2) /100WBC Smear Tech's Comments PT (10.8-13.0) SEC INR (0.9-1.1) APTT (24.1-38.0) SEC VBG pH (7.32-7.43) VBG pCO2 mmHg VBG pO2 mmHg VBG HCO3 (22-26) mmol/L VBG O2 Saturation % VBG Base Excess mmol/L Sodium 135 (135-145) mmol/L Potassium 4.9 (3.3-5.1) mmol/L Chloride 93 L D (96-108) mmol/L Carbon Dioxide 18 L (22-29) mmol/L Anion Gap 29 H (12-20) BUN 75 H (9-16) mg/dL Creatinine 2.71 H (0.5-1.4) mg/dL Estim Creat Clear Calc 32.8 Estimated GFR 24 POC Glucose (60-115) mg/dL Random Glucose 377 H* (60-115) mg/dL Lactic Acid (0.5-2.0) mmol/L Lactic Acid Fup @ 2Hr (0.5-2.0) mmol/L Lactic Acid Fup @ 4Hr 4.8 H* (0.5-2.0) mmol/L Calcium 6.5 L D (8.4-10.2) mg/dL Total Bilirubin 0.6 (0.0-1.0) mg/dL Direct Bilirubin (0.0-0.5) mg/dL AST 29 (5-37) U/L ALT 17 (0-40) U/L Alkaline Phosphatase 80 D (39-117) U/L Total Protein 5.8 L D (6.5-8.0) g/dL Albumin 2.8 L D (3.5-5.0) g/dL Lipase (8-78) U/L Urine Color YELLOW Urine Appearance CLEAR Urine pH 5.0 (5.0-8.0) Ur Specific [place] >= 1.030 H (1.005-1.025) Urine Protein 1+ H (NEG-TRACE) MG/DL Urine Glucose (UA) NEG (NEG) MG/DL Urine Ketones 5 (NEG) MG/DL Urine Blood TRACE (NEG) Urine Nitrite NEG (NEG) Ur Leukocyte Esterase NEG (NEG) Urine RBC 1-4 (0) /HPF Urine WBC 0-2 (0-4) /HPF Ur Squamous Epith Cells 1+ /LPF Urine Bacteria TRACE /LPF Stool Occult Blood (NEGATIVE) Ethyl Alcohol mg/dL Acetone, Qual Small H (Negative) 03/04/21 Range/Units 20:19 WBC (4.8-10.8) X10*3/uL RBC (4.60-5.80) X10*6/uL Hgb (14.0-18.0) g/dl Hct (42-52) % MCV (80-98) fL MCH (27.0-33.0) pg MCHC (31.0-36.0) g/dl RDW (11.0-16.0) % Plt Count (160-400) X10*3/uL MPV (9.4-12.4) fL Immature Gran % (Auto) (0.0-0.4) % Neut % (Auto) (45-73) % Lymph % (Auto) (20-40) % [place] % (Auto) (2-11) % Eos % (Auto) (0-4) % Baso % (Auto) (0-2) % Lymph # (Auto) (1.2-4.9) X10*3/uL [place] # (Auto) (0.1-1.2) X10*3/uL Eos # (Auto) (0.0-0.4) X10*3/uL Baso # (Auto) (0.0-0.2) X10*3/uL Abs Immat Gran (auto) (0.00-0.03) X10*3/uL Absolute Neuts (auto) (2.0-8.3) X10*3/uL Absolute Nucleated RBC (0.0-0.012) X10*3/uL Nucleated RBC % (auto) (0.0-0.2) /100WBC Smear Tech's Comments PT (10.8-13.0) SEC INR (0.9-1.1) APTT (24.1-38.0) SEC VBG pH (7.32-7.43) VBG pCO2 mmHg VBG pO2 mmHg VBG HCO3 (22-26) mmol/L VBG O2 Saturation % VBG Base Excess mmol/L Sodium (135-145) mmol/L Potassium (3.3-5.1) mmol/L Chloride (96-108) mmol/L Carbon Dioxide (22-29) mmol/L Anion Gap (12-20) BUN (9-16) mg/dL Creatinine (0.5-1.4) mg/dL Estim Creat Clear Calc Estimated GFR POC Glucose 264 H (60-115) mg/dL Random Glucose (60-115) mg/dL Lactic Acid (0.5-2.0) mmol/L Lactic Acid Fup @ 2Hr (0.5-2.0) mmol/L Lactic Acid Fup @ 4Hr (0.5-2.0) mmol/L Calcium (8.4-10.2) mg/dL Total Bilirubin (0.0-1.0) mg/dL Direct Bilirubin (0.0-0.5) mg/dL AST (5-37) U/L ALT (0-40) U/L Alkaline Phosphatase (39-117) U/L Total Protein (6.5-8.0) g/dL Albumin (3.5-5.0) g/dL Lipase (8-78) U/L Urine Color Urine Appearance Urine pH (5.0-8.0) Ur Specific [place] (1.005-1.025) Urine Protein (NEG-TRACE) MG/DL Urine Glucose (UA) (NEG) MG/DL Urine Ketones (NEG) MG/DL Urine Blood (NEG) Urine Nitrite (NEG) Ur Leukocyte Esterase (NEG) Urine RBC (0) /HPF Urine WBC (0-4) /HPF Ur Squamous Epith Cells /LPF Urine Bacteria /LPF Stool Occult Blood (NEGATIVE) Ethyl Alcohol mg/dL Acetone, Qual (Negative) <JEREL Sweet - Last Filed: 03/04/21 21:46> Lab Results 03/04/21 03/04/21 03/04/21 Range/Units 13:20 13:20 13:20 WBC 20.7 H (4.8-10.8) X10*3/uL RBC 5.31 (4.60-5.80) X10*6/uL Hgb 12.8 L (14.0-18.0) g/dl Hct 39.8 L (42-52) % MCV 75.0 L (80-98) fL MCH 24.1 L (27.0-33.0) pg MCHC 32.2 (31.0-36.0) g/dl RDW 17.1 H (11.0-16.0) % Plt Count 303 (160-400) X10*3/uL MPV 9.6 (9.4-12.4) fL Immature Gran % (Auto) 0.7 H (0.0-0.4) % Neut % (Auto) 87.4 H (45-73) % Lymph % (Auto) 3.6 L (20-40) % [place] % (Auto) 7.9 (2-11) % Eos % (Auto) 0.3 (0-4) % Baso % (Auto) 0.1 (0-2) % Lymph # (Auto) 0.8 L (1.2-4.9) X10*3/uL [place] # (Auto) 1.6 H (0.1-1.2) X10*3/uL Eos # (Auto) 0.1 (0.0-0.4) X10*3/uL Baso # (Auto) 0.0 (0.0-0.2) X10*3/uL Abs Immat Gran (auto) 0.14 H (0.00-0.03) X10*3/uL Absolute Neuts (auto) 18.1 H (2.0-8.3) X10*3/uL Absolute Nucleated RBC 0.000 (0.0-0.012) X10*3/uL Nucleated RBC % (auto) 0.0 (0.0-0.2) /100WBC Smear Tech's Comments VERIFIED PT 11.1 (10.8-13.0) SEC INR 0.9 (0.9-1.1) APTT 25.8 (24.1-38.0) SEC VBG pH (7.32-7.43) VBG pCO2 mmHg VBG pO2 mmHg VBG HCO3 (22-26) mmol/L VBG O2 Saturation % VBG Base Excess mmol/L Sodium 132 L (135-145) mmol/L Potassium 5.5 H (3.3-5.1) mmol/L Chloride 75 L D (96-108) mmol/L Carbon Dioxide 17 L (22-29) mmol/L Anion Gap 46 H (12-20) BUN 81 H* D (9-16) mg/dL Creatinine 3.85 H (0.5-1.4) mg/dL Estim Creat Clear Calc 23.1 Estimated GFR 16 POC Glucose (60-115) mg/dL Random Glucose 561 H* (60-115) mg/dL Lactic Acid (0.5-2.0) mmol/L Lactic Acid Fup @ 2Hr (0.5-2.0) mmol/L Lactic Acid Fup @ 4Hr (0.5-2.0) mmol/L Calcium 8.4 D (8.4-10.2) mg/dL Total Bilirubin 0.9 (0.0-1.0) mg/dL Direct Bilirubin 0.5 (0.0-0.5) mg/dL AST 34 D (5-37) U/L ALT 25 (0-40) U/L Alkaline Phosphatase 106 D (39-117) U/L Total Protein 7.7 (6.5-8.0) g/dL Albumin 3.7 (3.5-5.0) g/dL Lipase 8 (8-78) U/L Urine Color Urine Appearance Urine pH (5.0-8.0) Ur Specific [place] (1.005-1.025) Urine Protein (NEG-TRACE) MG/DL Urine Glucose (UA) (NEG) MG/DL Urine Ketones (NEG) MG/DL Urine Blood (NEG) Urine Nitrite (NEG) Ur Leukocyte Esterase (NEG) Urine RBC (0) /HPF Urine WBC (0-4) /HPF Ur Squamous Epith Cells /LPF Urine Bacteria /LPF Stool Occult Blood (NEGATIVE) Ethyl Alcohol mg/dL Acetone, Qual Small H (Negative) 03/04/21 03/04/21 03/04/21 Range/Units 13:20 13:20 13:20 WBC (4.8-10.8) X10*3/uL RBC (4.60-5.80) X10*6/uL Hgb (14.0-18.0) g/dl Hct (42-52) % MCV (80-98) fL MCH (27.0-33.0) pg MCHC (31.0-36.0) g/dl RDW (11.0-16.0) % Plt Count (160-400) X10*3/uL MPV (9.4-12.4) fL Immature Gran % (Auto) (0.0-0.4) % Neut % (Auto) (45-73) % Lymph % (Auto) (20-40) % [place] % (Auto) (2-11) % Eos % (Auto) (0-4) % Baso % (Auto) (0-2) % Lymph # (Auto) (1.2-4.9) X10*3/uL [place] # (Auto) (0.1-1.2) X10*3/uL Eos # (Auto) (0.0-0.4) X10*3/uL Baso # (Auto) (0.0-0.2) X10*3/uL Abs Immat Gran (auto) (0.00-0.03) X10*3/uL Absolute Neuts (auto) (2.0-8.3) X10*3/uL Absolute Nucleated RBC (0.0-0.012) X10*3/uL Nucleated RBC % (auto) (0.0-0.2) /100WBC Smear Tech's Comments PT (10.8-13.0) SEC INR (0.9-1.1) APTT (24.1-38.0) SEC VBG pH (7.32-7.43) VBG pCO2 mmHg VBG pO2 mmHg VBG HCO3 (22-26) mmol/L VBG O2 Saturation % VBG Base Excess mmol/L Sodium (135-145) mmol/L Potassium (3.3-5.1) mmol/L Chloride (96-108) mmol/L Carbon Dioxide (22-29) mmol/L Anion Gap (12-20) BUN (9-16) mg/dL Creatinine (0.5-1.4) mg/dL Estim Creat Clear Calc Estimated GFR POC Glucose (60-115) mg/dL Random Glucose (60-115) mg/dL Lactic Acid 9.9 H* (0.5-2.0) mmol/L Lactic Acid Fup @ 2Hr (0.5-2.0) mmol/L Lactic Acid Fup @ 4Hr (0.5-2.0) mmol/L Calcium (8.4-10.2) mg/dL Total Bilirubin (0.0-1.0) mg/dL Direct Bilirubin (0.0-0.5) mg/dL AST (5-37) U/L ALT (0-40) U/L Alkaline Phosphatase (39-117) U/L Total Protein (6.5-8.0) g/dL Albumin (3.5-5.0) g/dL Lipase (8-78) U/L Urine Color Urine Appearance Urine pH (5.0-8.0) Ur Specific [place] (1.005-1.025) Urine Protein (NEG-TRACE) MG/DL Urine Glucose (UA) (NEG) MG/DL Urine Ketones (NEG) MG/DL Urine Blood (NEG) Urine Nitrite (NEG) Ur Leukocyte Esterase (NEG) Urine RBC (0) /HPF Urine WBC (0-4) /HPF Ur Squamous Epith Cells /LPF Urine Bacteria /LPF Stool Occult Blood NEGATIVE (NEGATIVE) Ethyl Alcohol 196 mg/dL Acetone, Qual (Negative) 03/04/21 03/04/21 03/04/21 Range/Units 14:32 16:03 16:07 WBC (4.8-10.8) X10*3/uL RBC (4.60-5.80) X10*6/uL Hgb (14.0-18.0) g/dl Hct (42-52) % MCV (80-98) fL MCH (27.0-33.0) pg MCHC (31.0-36.0) g/dl RDW (11.0-16.0) % Plt Count (160-400) X10*3/uL MPV (9.4-12.4) fL Immature Gran % (Auto) (0.0-0.4) % Neut % (Auto) (45-73) % Lymph % (Auto) (20-40) % [place] % (Auto) (2-11) % Eos % (Auto) (0-4) % Baso % (Auto) (0-2) % Lymph # (Auto) (1.2-4.9) X10*3/uL [place] # (Auto) (0.1-1.2) X10*3/uL Eos # (Auto) (0.0-0.4) X10*3/uL Baso # (Auto) (0.0-0.2) X10*3/uL Abs Immat Gran (auto) (0.00-0.03) X10*3/uL Absolute Neuts (auto) (2.0-8.3) X10*3/uL Absolute Nucleated RBC (0.0-0.012) X10*3/uL Nucleated RBC % (auto) (0.0-0.2) /100WBC Smear Tech's Comments PT (10.8-13.0) SEC INR (0.9-1.1) APTT (24.1-38.0) SEC VBG pH 7.32 (7.32-7.43) VBG pCO2 33 mmHg VBG pO2 96 mmHg VBG HCO3 17 L (22-26) mmol/L VBG O2 Saturation 93.0 % VBG Base Excess -7.2 mmol/L Sodium (135-145) mmol/L Potassium (3.3-5.1) mmol/L Chloride (96-108) mmol/L Carbon Dioxide (22-29) mmol/L Anion Gap (12-20) BUN (9-16) mg/dL Creatinine (0.5-1.4) mg/dL Estim Creat Clear Calc Estimated GFR POC Glucose 348 H (60-115) mg/dL Random Glucose (60-115) mg/dL Lactic Acid (0.5-2.0) mmol/L Lactic Acid Fup @ 2Hr 6.2 H* (0.5-2.0) mmol/L Lactic Acid Fup @ 4Hr (0.5-2.0) mmol/L Calcium (8.4-10.2) mg/dL Total Bilirubin (0.0-1.0) mg/dL Direct Bilirubin (0.0-0.5) mg/dL AST (5-37) U/L ALT (0-40) U/L Alkaline Phosphatase (39-117) U/L Total Protein (6.5-8.0) g/dL Albumin (3.5-5.0) g/dL Lipase (8-78) U/L Urine Color Urine Appearance Urine pH (5.0-8.0) Ur Specific [place] (1.005-1.025) Urine Protein (NEG-TRACE) MG/DL Urine Glucose (UA) (NEG) MG/DL Urine Ketones (NEG) MG/DL Urine Blood (NEG) Urine Nitrite (NEG) Ur Leukocyte Esterase (NEG) Urine RBC (0) /HPF Urine WBC (0-4) /HPF Ur Squamous Epith Cells /LPF Urine Bacteria /LPF Stool Occult Blood (NEGATIVE) Ethyl Alcohol mg/dL Acetone, Qual (Negative) 03/04/21 03/04/21 03/04/21 Range/Units 18:12 18:12 18:41 WBC (4.8-10.8) X10*3/uL RBC (4.60-5.80) X10*6/uL Hgb (14.0-18.0) g/dl Hct (42-52) % MCV (80-98) fL MCH (27.0-33.0) pg MCHC (31.0-36.0) g/dl RDW (11.0-16.0) % Plt Count (160-400) X10*3/uL MPV (9.4-12.4) fL Immature Gran % (Auto) (0.0-0.4) % Neut % (Auto) (45-73) % Lymph % (Auto) (20-40) % [place] % (Auto) (2-11) % Eos % (Auto) (0-4) % Baso % (Auto) (0-2) % Lymph # (Auto) (1.2-4.9) X10*3/uL [place] # (Auto) (0.1-1.2) X10*3/uL Eos # (Auto) (0.0-0.4) X10*3/uL Baso # (Auto) (0.0-0.2) X10*3/uL Abs Immat Gran (auto) (0.00-0.03) X10*3/uL Absolute Neuts (auto) (2.0-8.3) X10*3/uL Absolute Nucleated RBC (0.0-0.012) X10*3/uL Nucleated RBC % (auto) (0.0-0.2) /100WBC Smear Tech's Comments PT (10.8-13.0) SEC INR (0.9-1.1) APTT (24.1-38.0) SEC VBG pH (7.32-7.43) VBG pCO2 mmHg VBG pO2 mmHg VBG HCO3 (22-26) mmol/L VBG O2 Saturation % VBG Base Excess mmol/L Sodium 135 (135-145) mmol/L Potassium 4.9 (3.3-5.1) mmol/L Chloride 93 L D (96-108) mmol/L Carbon Dioxide 18 L (22-29) mmol/L Anion Gap 29 H (12-20) BUN 75 H (9-16) mg/dL Creatinine 2.71 H (0.5-1.4) mg/dL Estim Creat Clear Calc 32.8 Estimated GFR 24 POC Glucose (60-115) mg/dL Random Glucose 377 H* (60-115) mg/dL Lactic Acid (0.5-2.0) mmol/L Lactic Acid Fup @ 2Hr (0.5-2.0) mmol/L Lactic Acid Fup @ 4Hr 4.8 H* (0.5-2.0) mmol/L Calcium 6.5 L D (8.4-10.2) mg/dL Total Bilirubin 0.6 (0.0-1.0) mg/dL Direct Bilirubin (0.0-0.5) mg/dL AST 29 (5-37) U/L ALT 17 (0-40) U/L Alkaline Phosphatase 80 D (39-117) U/L Total Protein 5.8 L D (6.5-8.0) g/dL Albumin 2.8 L D (3.5-5.0) g/dL Lipase (8-78) U/L Urine Color YELLOW Urine Appearance CLEAR Urine pH 5.0 (5.0-8.0) Ur Specific [place] >= 1.030 H (1.005-1.025) Urine Protein 1+ H (NEG-TRACE) MG/DL Urine Glucose (UA) NEG (NEG) MG/DL Urine Ketones 5 (NEG) MG/DL Urine Blood TRACE (NEG) Urine Nitrite NEG (NEG) Ur Leukocyte Esterase NEG (NEG) Urine RBC 1-4 (0) /HPF Urine WBC 0-2 (0-4) /HPF Ur Squamous Epith Cells 1+ /LPF Urine Bacteria TRACE /LPF Stool Occult Blood (NEGATIVE) Ethyl Alcohol mg/dL Acetone, Qual Small H (Negative) 03/04/21 Range/Units 20:19 WBC (4.8-10.8) X10*3/uL RBC (4.60-5.80) X10*6/uL Hgb (14.0-18.0) g/dl Hct (42-52) % MCV (80-98) fL MCH (27.0-33.0) pg MCHC (31.0-36.0) g/dl RDW (11.0-16.0) % Plt Count (160-400) X10*3/uL MPV (9.4-12.4) fL Immature Gran % (Auto) (0.0-0.4) % Neut % (Auto) (45-73) % Lymph % (Auto) (20-40) % [place] % (Auto) (2-11) % Eos % (Auto) (0-4) % Baso % (Auto) (0-2) % Lymph # (Auto) (1.2-4.9) X10*3/uL [place] # (Auto) (0.1-1.2) X10*3/uL Eos # (Auto) (0.0-0.4) X10*3/uL Baso # (Auto) (0.0-0.2) X10*3/uL Abs Immat Gran (auto) (0.00-0.03) X10*3/uL Absolute Neuts (auto) (2.0-8.3) X10*3/uL Absolute Nucleated RBC (0.0-0.012) X10*3/uL Nucleated RBC % (auto) (0.0-0.2) /100WBC Smear Tech's Comments PT (10.8-13.0) SEC INR (0.9-1.1) APTT (24.1-38.0) SEC VBG pH (7.32-7.43) VBG pCO2 mmHg VBG pO2 mmHg VBG HCO3 (22-26) mmol/L VBG O2 Saturation % VBG Base Excess mmol/L Sodium (135-145) mmol/L Potassium (3.3-5.1) mmol/L Chloride (96-108) mmol/L Carbon Dioxide (22-29) mmol/L Anion Gap (12-20) BUN (9-16) mg/dL Creatinine (0.5-1.4) mg/dL Estim Creat Clear Calc Estimated GFR POC Glucose 264 H (60-115) mg/dL Random Glucose (60-115) mg/dL Lactic Acid (0.5-2.0) mmol/L Lactic Acid Fup @ 2Hr (0.5-2.0) mmol/L Lactic Acid Fup @ 4Hr (0.5-2.0) mmol/L Calcium (8.4-10.2) mg/dL Total Bilirubin (0.0-1.0) mg/dL Direct Bilirubin (0.0-0.5) mg/dL AST (5-37) U/L ALT (0-40) U/L Alkaline Phosphatase (39-117) U/L Total Protein (6.5-8.0) g/dL Albumin (3.5-5.0) g/dL Lipase (8-78) U/L Urine Color Urine Appearance Urine pH (5.0-8.0) Ur Specific [place] (1.005-1.025) Urine Protein (NEG-TRACE) MG/DL Urine Glucose (UA) (NEG) MG/DL Urine Ketones (NEG) MG/DL Urine Blood (NEG) Urine Nitrite (NEG) Ur Leukocyte Esterase (NEG) Urine RBC (0) /HPF Urine WBC (0-4) /HPF Ur Squamous Epith Cells /LPF Urine Bacteria /LPF Stool Occult Blood (NEGATIVE) Ethyl Alcohol mg/dL Acetone, Qual (Negative) <Nathalia Johnson MD - Last Filed: 03/04/21 21:31> Critical Care Time Critical Care Time Critical Care Time: Yes <JEREL Sweet - Last Filed: 03/04/21 21:46> Total Critical Care Time: 60 <JEREL Sweet - Last Filed: 03/04/21 21:46> Attestation: Due to patient's coffee-ground emesis gastroenterology was called and they said they would do endoscopy in the morning. Patient anion gap did not improve, so patient was placed on insulin drip and ICU doctor was called. <JEREL Sweet - Last Filed: 03/04/21 21:46> Discharge Plan Discharge Clinical Impression: DKA (diabetic ketoacidoses), Acute GI bleeding, RONN (acute kidney injury) <JEREL Sweet - Last Filed: 03/04/21 21:46> Patient Disposition: Admitted As Inpatient <JEREL Sweet - Last Filed: 03/04/21 21:46>
[2021-03-04] MEDS: Pantoprazole Sodium 40 MG/10 ML VIAL 80 MG IVPUSH (13:31)
[2021-03-04] MEDS: Magnesium Hydrox/Alum Hydrox 30 ML ORAL.SUSP PO (13:31)
[2021-03-04] MEDS: 0.9 % Sodium Chloride 1,000 ML 999 ML IV ×4 (13:31→16:26)
[2021-03-04] MEDS: Lidocaine HCl Viscous 2 % 15 ML SOLUTION MUCOUS MEM (13:31)
[2021-03-04] MEDS: ondansetron HCL 4 MG/2 ML VIAL IVPUSH (13:31)
[2021-03-04] MEDS: PHENobarb/Hyoscy/Atropine/Scop 10 ML ELIXIR PO (13:31)
[2021-03-04 13:34] LABS: OBS Int Ctl Valid YES; OBS1 NEGATIVE (NEGATIVE)
[2021-03-04 13:35] LABS: Basophils Percent Auto 0.1 % (0-2); Eosinophils Absolute Auto 0.1 X10*3/uL (0.0-0.4); Eosinophils Percent Auto 0.3 % (0-4); Hematocrit 39.8 % (42-52); Hemoglobin 12.8 g/dl (14.0-18.0); Imm Gran Abs Auto 0.14 X10*3/uL (0.00-0.03); Imm Gran Pct Auto 0.7 % (0.0-0.4); Lymphocytes Absolute Auto 0.8 X10*3/uL (1.2-4.9); Lymphocytes Percent Auto 3.6 % (20-40); MANUAL DIFF FLAG SCAN; Mean Corpuscular HGB Conc 32.2 g/dl (31.0-36.0); Mean Corpuscular Hemoglobin 24.1 pg (27.0-33.0); Mean Platelet Volume 9.6 fL (9.4-12.4); Monocytes Absolute Auto 1.6 X10*3/uL (0.1-1.2); Monocytes Percent Auto 7.9 % (2-11); Neutrophils Absolute Auto 18.1 X10*3/uL (2.0-8.3); Neutrophils Percent Auto 87.4 % (45-73); Platelet Count 303 X10*3/uL (160-400); Red Blood Count 5.31 X10*6/uL (4.60-5.80); Red Cell Distribution Width 17.1 % (11.0-16.0); SCAN SMEAR FLAG 1; White Blood Count 20.7 X10*3/uL (4.8-10.8)
[2021-03-04 13:54] LABS: SLIDE REVIEW VERIFIED
[2021-03-04 13:58] LABS: Ethanol 196 mg/dL
[2021-03-04 14:05] LABS: Alanine Aminotransferase 25 U/L (0-40); Albumin Level 3.7 g/dL (3.5-5.0); Alkaline Phosphatase 106 U/L (39-117); Aspartate Amino Transferase 34 U/L (5-37); Bilirubin Direct 0.5 mg/dL (0.0-0.5); Bilirubin Total 0.9 mg/dL (0.0-1.0); Blood Urea Nitrogen 81 mg/dL (9-16); Calcium 8.4 mg/dL (8.4-10.2); Creatinine Clr Calc Pharmacy 23.1; Estimated Glomerular Filt Rate 16; Glucose Random 561 mg/dL (60-115); Lactic Acid 9.9 mmol/L (0.5-2.0); Lipase 8 U/L (8-78); Total Protein 7.7 g/dL (6.5-8.0)
[2021-03-04 14:06] LABS: INTERNATIONAL NORM RATIO 0.9 (0.9-1.1); Prothrombin Time 11.1 SEC (10.8-13.0)
[2021-03-04 14:09] LABS: Partial Thromboplastin Time 25.8 SEC (24.1-38.0)
[2021-03-04 14:12] LABS: Anion Gap 46 (12-20); Carbon Dioxide 17 mmol/L (22-29); Chloride 75 mmol/L (96-108); Potassium 5.5 mmol/L (3.3-5.1); Sodium 132 mmol/L (135-145)
[2021-03-04 14:37] VITALS: RESP 20
[2021-03-04] MEDS: Insulin Regular, Human 100 UNIT/ML 3 ML VIAL 10 UNIT IVPUSH (14:37)
[2021-03-04] MEDS: Morphine Sulfate 4 MG/ML CARTRIDGE IVPUSH (14:37)
[2021-03-04 14:40] LABS: VBG Base Excess -7.2 mmol/L; VBG HCO3 17 mmol/L (22-26); VBG pCO2 33 mmHg; VBG pH 7.32 (7.32-7.43); VBG pO2 96 mmHg
[2021-03-04 14:41] LABS: Venous Blood Gas Refer to POC result
[2021-03-04 15:10] LABS: Acetone, serum QL Small (Negative)
[2021-03-04 15:24] LABS: Reflex Lactate? Lactic Acid Added
[2021-03-04 16:05] VITALS: BP 137/51; PULSE 126; RESP 18; TEMP 36.9; O2SAT 96
[2021-03-04 16:11] LABS: Glucose, Whole Blood 348 mg/dL (60-115)
[2021-03-04 17:02] LABS: ~Lactic Acid-LAB USE ONLY 6.2 mmol/L (0.5-2.0)
--- NOTE | 2021-03-04 17:28 | PM.GICN ---
History of Present Illness Data of Consult Service Date: 03/04/21 Requesting physician: Darshan Vyas Primary Care Provider: [facility] HPI Reason for consult: hematemesis 56 yr old m w hx of DM, and alcohol abuse who I am asked to see for eval of hematemesis Patient has been drinking 3 bottles of vodka a day for the last 3 days. yesterday he noted severe epigastric pain and then started vomiting several times with initially blood colored emesis which then became more coffee colored. He denies melena. There is question of whether he has really been compliant with medications or not, not forthcoming in his answers. Did say he got one of the COVID vaccines few days back and that also made him feel unwell. He denies chest pain, no fevers or chills, and no SOB. Of note I have been serially dilating his esophagus for s suspected malignant esophageal stricture (not proven on bx) due to the persistence of the stricture and his finger clubbing. Last EGD was 02/26/21 with balloon dilation. He has been referred for EUS initially to [facility] but due to lack of transport this was re directed to [facility]. Currently he is being treated for diabetic and alcoholic ketoacidosis wiht fluids and insulin. Review of Systems Review of Systems: Yes all other systems are reviewed and are negative Constitutional: Constitutional: Reports as per HPI and Reports no additional constitutional complaints Eyes: Eyes: Reports as per HPI and Reports no additional eye complaints ENT: Reports system reviewed and no additional complaints, except as documented and Reports as per HPI Cardiovascular: Cardiovascular: Reports as per HPI and Reports no additional cardiovascular complaints Respiratory: Respiratory: Reports as per HPI and Reports no additional respiratory complaints Gastrointestinal: Gastrointestinal: Reports as per HPI, Reports no additional gastrointestinal complaints, Reports abdominal pain (Epigastric.) and Reports hematemesis Genitourinary: Genitourinary: Reports no additional male genitourinary complaints and Reports as per HPI Musculoskeletal: Musculoskeletal: Reports no additional musculoskeletal complaints and Reports as per HPI Neurologic: Reports system reviewed and no additional complaints, except as documented and Reports as per HPI [facility] Past Medical History Medical History Acute alcoholic gastritis Alcohol use disorder, severe, dependence Alcoholism Depressed Diabetes Esophageal stricture Gastritis GIB (gastrointestinal bleeding) Head injury HLD (hyperlipidemia) HTN (hypertension) Hypomagnesemia Hypophosphatemia Odynophagia On beta cher at home Pancreatitis Seizures Supraventricular tachycardia Type 2 diabetes mellitus Vitamin D deficiency Family History Family History Father Diabetes Surgical History Surgical History H/O colonoscopy History of esophagogastroduodenoscopy (EGD) Social History Social History Household Members: Significant Other Housing: House Alcohol intake: current Alcohol intake frequency: does not drink Smoking Status: Never smoker Second Hand Smoke Exposure: No Advance Directives: No Advance Directives Information Provided: No service: No Current occupational status: unemployed and disabled Meds Allergies Allergy/AdvReac Type Severity Reaction Status Date / Time No Known Allergies Allergy Verified 02/14/21 10:01 Home Medications Medication Instructions Recorded Confirmed Last Taken Type bupropion HCl 100 mg PO DAILY 11/13/20 02/20/21 Unknown History dicyclomine 10 mg PO TID PRN 11/13/20 02/20/21 Unknown History folic acid 1 mg PO DAILY 11/13/20 02/20/21 Unknown History lisinopril 20 mg PO DAILY 11/13/20 02/20/21 Unknown History multivitamin 1 tab PO DAILY 11/13/20 02/20/21 Unknown History thiamine HCl (vitamin B1) 100 mg PO DAILY 11/13/20 02/20/21 Unknown History trazodone 50 mg PO BEDTIME 11/13/20 02/20/21 Unknown History omeprazole 40 mg PO BID 12/11/20 02/20/21 Unknown History insulin aspart U-100 100 unit/mL 10 unit SUBCUT TID 02/13/21 02/20/21 Unknown History (3 mL) subcutaneous pen insulin detemir U-100 100 unit/mL 35 unit SUBCUT BEDTIME ml 02/13/21 02/20/21 Unknown History (3 mL) subcutaneous pen Physical Exam Vital Signs: Vital Signs: Last Vital Signs Temp 98.5 F 03/04/21 16:05 Pulse 126 H 03/04/21 16:05 Resp 18 03/04/21 16:05 BP 137/51 L 03/04/21 16:05 Pulse Ox 96 03/04/21 16:05 Body Mass Index 27.6 clubbing of fingers on hands Const: General: cooperative, healthy appearing, comfortable, no acute distress, well developed, alert and acute distress HENMT: Head: Yes normal to inspection and Yes No palpable skull fracture present Eyes: General: appearance normal, both eyes and all related structures Neck: Neck: Yes normal visual inspection, Yes full ROM, Yes no lymphadenopathy, Yes no meningeal signs, Yes trachea midline, Yes supple and No tender Chest: Chest palpation & inspection: normal inspection of the chest and normal palpation of entire chest wall Resp: Effort & Inspection: normal respiratory effort and able to speak in complete sentences Auscultation: clear to auscultation bilaterally Cardio: Jugular venous distension: no JVD Heart sounds: S1 normal heart sound present and S2 normal heart sound present GI: Inspection: Yes normal to inspection Palpation (GI): Soft to palpation, not firm, Tenderness to palpation present (GI) in the epigastrum, no guarding and not rigid : General: No CVA tenderness and Yes no CVA tenderness Back/Spine/Pelvis: Back: no CVA tenderness, No CVA tenderness and No back tenderness Skin: General skin exam: no rashes or lesions noted and elasticity normal Neuro: General: gait normal, no meningeal signs and CN's II-XI intact bilaterally Cranial nerves: Yes CN's II-XII intact bilaterally Extrem: General: Yes normal to inspection and Yes full ROM Psych: Appearance: grossly normal Results Labs CBC & Chem 7: 03/04/21 13:20 03/04/21 13:20 Labs: Short CBC 03/04/21 Range/Units 13:20 WBC 20.7 H (4.8-10.8) X10*3/uL Hgb 12.8 L (14.0-18.0) g/dl Hct 39.8 L (42-52) % Plt Count 303 (160-400) X10*3/uL BMP 03/04/21 13:20 Sodium 132 L Potassium 5.5 H Chloride 75 L D Carbon Dioxide 17 L BUN 81 H* D Creatinine 3.85 H Calcium 8.4 D Liver Function 03/04/21 Range/Units 13:20 Total Bilirubin 0.9 (0.0-1.0) mg/dL Direct Bilirubin 0.5 (0.0-0.5) mg/dL AST 34 D (5-37) U/L ALT 25 (0-40) U/L Alkaline Phosphatase 106 D (39-117) U/L Albumin 3.7 (3.5-5.0) g/dL AXR--no obstrcution, pancreatic calcifications Assessment and Plan (1) Hematemesis/vomiting blood: Status: Acute 1/ Acute hematemesis likely 2/2 to alcoholic gastritis and M-Dubon tear or worsening esophagitis/ulceration, with RONN and DKA as well as alcoholic ketoacidosis with large acid base gap. PLAN: 1/ Pantoprazole 40 mg IV BID 2/ Sucralfate 1 g BID 3/ can allow ice chips, depending on clinical response may consider EGD tomorrow if ongoing blood loss, of course would also expect dilutional anemia from fluid resus given degree of acidosis. 4/ Longer term there is concern regarding whether he has actually been compliant with his anti acid medications. He does have the stricture which I have been presuming to be malignant, but of course it may also be benign but not healing due to non compliance and alcohol abuse. Will emphasize importance of compliance to him.
[2021-03-04 18:11] LABS: Reflex Lactate? 2 Y
[2021-03-04 18:12] VITALS: BP 138/54; PULSE 118; RESP 18; O2SAT 96
[2021-03-04 18:21] LABS: Glucose Urine UA NEG (NEG); Leukocyte Esterase Urine NEG (NEG); Nitrite Urine NEG (NEG); Specific Gravity - Urine >= 1.030 (1.005-1.025); Urine Blood TRACE (NEG); Urine Ketones 5 MG/DL (NEG); Urine Protein 1+ MG/DL (NEG-TRACE)
[2021-03-04 18:25] LABS: Appearance Urine CLEAR; Color Urine YELLOW
[2021-03-04 18:32] LABS: Bacteria Urine TRACE /LPF; Squamous Epithelial Cell Urine 1+ /LPF; WBC Urine 0-2 /HPF (0-4)
[2021-03-04 18:37] LABS: Acetone, serum QL Small (Negative)
[2021-03-04 18:48] LABS: Glucose Random 377 mg/dL (60-115)
[2021-03-04 18:55] LABS: Anion Gap 29 (12-20); Calcium 6.5 mg/dL (8.4-10.2); Carbon Dioxide 18 mmol/L (22-29); Chloride 93 mmol/L (96-108); Potassium 4.9 mmol/L (3.3-5.1); Sodium 135 mmol/L (135-145)
[2021-03-04 18:56] LABS: Alanine Aminotransferase 17 U/L (0-40); Albumin Level 2.8 g/dL (3.5-5.0); Alkaline Phosphatase 80 U/L (39-117); Aspartate Amino Transferase 29 U/L (5-37); Bilirubin Total 0.6 mg/dL (0.0-1.0); Blood Urea Nitrogen 75 mg/dL (9-16); Creatinine Clr Calc Pharmacy 32.8; Estimated Glomerular Filt Rate 24; Total Protein 5.8 g/dL (6.5-8.0)
[2021-03-04] MEDS: Insulin Regular, Human 100 UNIT/ML 3 ML VIAL 8 UNIT IVPUSH (19:01)
[2021-03-04 19:23] LABS: ~Lactic Acid-LAB USE ONLY 4.8 mmol/L (0.5-2.0)
[2021-03-04 20:23] LABS: Glucose, Whole Blood 264 mg/dL (60-115)
[2021-03-04] MEDS: Dextrose 5 % and 0.45 % NaCl 1,000 ML 150 ML IVCONT (20:28)
[2021-03-04] MEDS: Insulin Regular/NS 100 UNIT/100 ML PLAST..BAG IVCONT (20:30)
--- NOTE | 2021-03-04 20:32 | PC.NURSE ---
PT'S POC 264 PRIOR TO STARTING INSULIN DRIP, V/O JEREL STRATTON START DRIP AT 4U/HOUR.
[2021-03-04 22:27] LABS: COVID-19 Test Negative (Negative)
[2021-03-04 22:28] VITALS: BP 142/66; PULSE 125; RESP 24; TEMP 36.6; O2SAT 99
[2021-03-04 22:39] LABS: Glucose, Whole Blood 261 mg/dL (60-115)
[2021-03-04] MEDS: Insulin Glargine,Hum.rec.anlog 100 UNIT/ML 10 ML VIAL 30 UNIT SUBCUT (22:39)
[2021-03-04 22:41] LABS: Alanine Aminotransferase 17 U/L (0-40); Alkaline Phosphatase 80 U/L (39-117); Anion Gap 20 (12-20); Aspartate Amino Transferase 30 U/L (5-37); Bilirubin Total 0.7 mg/dL (0.0-1.0); Blood Urea Nitrogen 70 mg/dL (9-16); Carbon Dioxide 26 mmol/L (22-29); Chloride 95 mmol/L (96-108); Creatinine Clr Calc Pharmacy 39.1; Estimated Glomerular Filt Rate 30; Glucose Random 312 mg/dL (60-115); Potassium 4.1 mmol/L (3.3-5.1); Sodium 137 mmol/L (135-145)
[2021-03-04 22:46] LABS: Phosphorus 2.5 mg/dL (2.7-4.5)
[2021-03-04 22:48] LABS: Calcium 7.1 mg/dL (8.4-10.2)
[2021-03-05] VITALS (14 sets, daily range): BP systolic 132–161; BP diastolic 55–87; PULSE 86–116; RESP 14–22; TEMP 36.9–37.5; O2SAT 92–98
--- NOTE | 2021-03-05 | ECG_ITS ---
Test Reason : N/V Blood Pressure : / mmHG Vent. Rate : 087 BPM Atrial Rate : 087 BPM P-R Int : 122 ms QRS Dur : 096 ms QT Int : 374 ms P-R-T Axes : 076 075 060 degrees QTc Int : 450 ms Normal sinus rhythm Normal ECG When compared with ECG of 13-NOV-2020 05:08, No significant change was found Referred By: Zbigniew Torres Electronically Signed By:MOOK MITCHELL MD
[2021-03-05] MEDS: LORazepam 2 MG/ML VIAL IM (00:09)
[2021-03-05 00:53] LABS: Glucose, Whole Blood 238 mg/dL (60-115)
[2021-03-05 01:00] LABS: Basophils Absolute Auto 0.1 X10*3/uL (0.0-0.2); Basophils Percent Auto 0.3 % (0-2); Hematocrit 36.4 % (42-52); Hemoglobin 11.8 g/dl (14.0-18.0); Imm Gran Abs Auto 0.08 X10*3/uL (0.00-0.03); Imm Gran Pct Auto 0.5 % (0.0-0.4); Lymphocytes Absolute Auto 0.9 X10*3/uL (1.2-4.9); Lymphocytes Percent Auto 5.6 % (20-40); MANUAL DIFF FLAG SCAN; Mean Corpuscular HGB Conc 32.4 g/dl (31.0-36.0); Mean Corpuscular Hemoglobin 24.4 pg (27.0-33.0); Mean Corpuscular Volume 75.4 fL (80-98); Mean Platelet Volume 9.5 fL (9.4-12.4); Monocytes Absolute Auto 1.6 X10*3/uL (0.1-1.2); Monocytes Percent Auto 9.4 % (2-11); Neutrophils Absolute Auto 14.1 X10*3/uL (2.0-8.3); Neutrophils Percent Auto 84.2 % (45-73); Platelet Count 205 X10*3/uL (160-400); Red Blood Count 4.83 X10*6/uL (4.60-5.80); Red Cell Distribution Width 16.7 % (11.0-16.0); SCAN SMEAR FLAG 1; White Blood Count 16.7 X10*3/uL (4.8-10.8)
[2021-03-05 01:17] LABS: SLIDE REVIEW VERIFIED
[2021-03-05 01:23] LABS: Anion Gap 19 (12-20); Blood Urea Nitrogen 65 mg/dL (9-16); Calcium 7.5 mg/dL (8.4-10.2); Carbon Dioxide 27 mmol/L (22-29); Chloride 95 mmol/L (96-108); Creatinine Clr Calc Pharmacy 40.8; Estimated Glomerular Filt Rate 31; Glucose Random 261 mg/dL (60-115); Potassium 4.1 mmol/L (3.3-5.1); Sodium 137 mmol/L (135-145)
[2021-03-05 01:28] LABS: Lactic Acid 2.8 mmol/L (0.5-2.0)
[2021-03-05 01:48] LABS: Glucose, Whole Blood 187 mg/dL (60-115)
[2021-03-05] MEDS: 0.9 % Sodium Chloride 1,000 ML 125 ML IVCONT (02:20)
--- NOTE | 2021-03-05 02:34 | PM.IMHP ---
History of Present Illness Date of Service: 03/05/21 Chief Complaint: Abdominal pain 56-year-old male with a past medical history of alcohol abuse, esophageal stricture, hypertension, hyperlipidemia, diabetes, anxiety, depression, history of pancreatitis, history of seizures, vitamin-D deficiency, history of esophageal stricture status post dilation presented to the hospital with a chief complaint of nausea and vomiting. Also complains of abdominal discomfort. Symptoms have been going on for the past 3 days. Reports he noted blood in the vomitus as well. Denies any chest pain palpitations. Denies any numbness tingling. Mentioned that he has been drinking alcohol and last drink was last night and had drank 3 pt of alcohol. Patient mentions that when he drinks alcohol he does not usually takes his medications. Review of all other systems is negative except mentioned above ER course: Patient on presentation noted to to be in DKA. Patient was placed on insulin drip. Follow-up lab showed closure of anion cough. Patient also wrote her a KI which has been improving with IV fluids. Lactic acidosis also improved with IV fluids. Lipase was within normal limits [facility] Medical History Acute alcoholic gastritis Alcohol use disorder, severe, dependence Alcoholism Depressed Diabetes Esophageal stricture Gastritis GIB (gastrointestinal bleeding) Head injury HLD (hyperlipidemia) HTN (hypertension) Hypomagnesemia Hypophosphatemia Odynophagia On beta cher at home Pancreatitis Seizures Supraventricular tachycardia Type 2 diabetes mellitus Vitamin D deficiency Family History Father Diabetes Surgical History H/O colonoscopy History of esophagogastroduodenoscopy (EGD) Social History Household Members: Spouse and Other Household Members Other:: homeless at present Housing: Homeless Do you presently have visiting nurse or other home services: No Alcohol intake: current Alcohol intake frequency: does not drink Smoking Status: Never smoker Smoked in Last 30 Days: No Patient Interested in Nicotine Replacement: No Patient Given Instructions on How to Stop Smoking: No Second Hand Smoke Exposure: No Use of substances other than those prescribed or required for medical reasons: No Currently Displaying Signs/Symptoms of Drug Intoxication Withdrawal: No Any prior treatment program specific to substance use: No Have you been hit, kicked, punched, or otherwise hurt by someone within the past year? If so, by whom?: No Do you feel safe in your current relationship?: No Current Relationship Is there a partner from a previous relationship who is making you feel unsafe now?: No Are you made to feel afraid or neglected: No Advance Directives: No Advance Directives Information Provided: No Do you have thoughts of harming others: None Do you have a plan to hurt others: No Plan Recently lost weight without trying: Yes service: No Current occupational status: unemployed and disabled Meds Allergies Allergy/AdvReac Type Severity Reaction Status Date / Time No Known Allergies Allergy Verified 02/14/21 10:01 Active Medications: Current Medications Generic Name Dose Route Start Last Admin Trade Name Freq PRN Reason Stop Dose Admin Famotidine 20 mg 03/05/21 09:00 Famotidine 20 Mg Tablet PO BID GOSIA Folic Acid 1 mg 03/05/21 09:00 Folic Acid 1 Mg Tablet PO 03/08/21 08:59 DAILY [facility] Sodium Chloride 1,000 mls @ 125 mls/hr 03/05/21 02:15 03/05/21 02:20 Ns IVCONT 125 mls/hr .Q8H GOSIA Administration Dextrose/Sodium Chloride 1,000 mls @ 100 mls/hr 03/05/21 02:30 D51/2ns IVCONT .Q10H [facility] Insulin Glargine 30 unit 03/05/21 21:00 Insulin Glargine,Hum.Rec.Anlog 100 Unit/Ml 10 Ml Vial SUBCUT BEDTIME [facility] Insulin Human Lispro 0 unit 03/05/21 07:30 Insulin Lispro 100 Unit/Ml 3 Ml Vial SUBCUT QIDACHS [facility] Protocol Lorazepam 1 mg 03/05/21 02:23 Lorazepam 1 Mg Tablet PO 03/09/21 02:22 Q2H PRN Breakthrough alcohol withdrawa Multivitamins 1 tab 03/05/21 09:00 B-Complex With Vitamin C Tablet PO DAILY GOSIA Senna 17.2 mg 03/05/21 02:23 Sennosides 8.6 Mg Tablet PO BEDTIME PRN Constipation Sodium Chloride 3 ml 03/05/21 08:00 0.9 % Sodium Chloride Flush 3 Ml Syringe IVFLUSH QSHIFT GOSIA Thiamine HCl 100 mg 03/05/21 09:00 Thiamine Hcl 100 Mg Tablet PO 03/08/21 08:59 DAILY [facility] Home Medications Medication Instructions Recorded Confirmed Last Taken Type bupropion HCl 100 mg PO DAILY 11/13/20 03/05/21 Unknown History folic acid 1 mg PO DAILY 11/13/20 03/05/21 Unknown History lisinopril 20 mg PO DAILY 11/13/20 03/05/21 Unknown History multivitamin 1 tab PO DAILY 11/13/20 03/05/21 Unknown History thiamine HCl (vitamin B1) 100 mg PO DAILY 11/13/20 03/05/21 Unknown History trazodone 50 mg PO BEDTIME 11/13/20 03/05/21 Unknown History omeprazole 40 mg PO BID 12/11/20 03/05/21 Unknown History insulin aspart U-100 100 unit/mL See Rx Instructions .ROUTE .COMPLEX 02/13/21 03/05/21 Unknown History (3 mL) subcutaneous pen insulin detemir U-100 100 unit/mL 35 unit SUBCUT BEDTIME ml 02/13/21 03/05/21 Unknown History (3 mL) subcutaneous pen Physical Exam Vital Signs and Narrative: Vital Signs: Last Vital Signs Temp 98.4 F 03/05/21 01:47 Pulse 104 H 03/05/21 01:47 Resp 19 03/05/21 01:47 BP 140/55 H 03/05/21 01:47 Pulse Ox 96 03/05/21 01:47 Body Mass Index 27.6 Gen: Appears be in no acute distress HEENT: NCAT, Moist mucosa. Pulmonary: Vesicular breath sounds, fair air entry CVS: Normal S1-S2 Abdomen: BS+, Soft, mildly tender diffusely Extremities: Warm well perfused Neuro: Alert and awake. Results Labs CBC and Chem 7: 03/06/21 05:36 03/06/21 05:36 Labs: Laboratory Results - last 24 hr 03/04/21 03/04/21 03/04/21 13:20 13:20 13:20 MCV 75.0 L MCH 24.1 L MCHC 32.2 RDW 17.1 H Plt Count 303 MPV 9.6 Immature Gran % (Auto) 0.7 H Neut % (Auto) 87.4 H Lymph % (Auto) 3.6 L [place] % (Auto) 7.9 Eos % (Auto) 0.3 Baso % (Auto) 0.1 Lymph # (Auto) 0.8 L [place] # (Auto) 1.6 H Eos # (Auto) 0.1 Baso # (Auto) 0.0 Abs Immat Gran (auto) 0.14 H Absolute Neuts (auto) 18.1 H Absolute Nucleated RBC 0.000 Nucleated RBC % (auto) 0.0 Smear Tech's Comments VERIFIED PT 11.1 INR 0.9 APTT 25.8 VBG pH VBG pCO2 VBG pO2 VBG HCO3 VBG O2 Saturation VBG Base Excess Anion Gap 46 H Creatinine 3.85 H Estim Creat Clear Calc 23.1 Estimated GFR 16 POC Glucose Random Glucose 561 H* Lactic Acid Lactic Acid Fup @ 2Hr Lactic Acid Fup @ 4Hr Calcium 8.4 D Phosphorus Total Bilirubin 0.9 Direct Bilirubin 0.5 AST 34 D ALT 25 Alkaline Phosphatase 106 D Total Protein 7.7 Albumin 3.7 Lipase 8 Urine Color Urine Appearance Urine pH Ur Specific [place] Urine Protein Urine Glucose (UA) Urine Ketones Urine Blood Urine Nitrite Ur Leukocyte Esterase Urine RBC Urine WBC Ur Squamous Epith Cells Urine Bacteria Stool Occult Blood Ethyl Alcohol Acetone, Qual Small H COVID-19 (OLIVERIO) COVID-19 Fulcrum SP Materials Com 03/04/21 03/04/21 03/04/21 13:20 13:20 13:20 MCV MCH MCHC RDW Plt Count MPV Immature Gran % (Auto) Neut % (Auto) Lymph % (Auto) [place] % (Auto) Eos % (Auto) Baso % (Auto) Lymph # (Auto) [place] # (Auto) Eos # (Auto) Baso # (Auto) Abs Immat Gran (auto) Absolute Neuts (auto) Absolute Nucleated RBC Nucleated RBC % (auto) Smear Tech's Comments PT INR APTT VBG pH VBG pCO2 VBG pO2 VBG HCO3 VBG O2 Saturation VBG Base Excess Anion Gap Creatinine Estim Creat Clear Calc Estimated GFR POC Glucose Random Glucose Lactic Acid 9.9 H* Lactic Acid Fup @ 2Hr Lactic Acid Fup @ 4Hr Calcium Phosphorus Total Bilirubin Direct Bilirubin AST ALT Alkaline Phosphatase Total Protein Albumin Lipase Urine Color Urine Appearance Urine pH Ur Specific [place] Urine Protein Urine Glucose (UA) Urine Ketones Urine Blood Urine Nitrite Ur Leukocyte Esterase Urine RBC Urine WBC Ur Squamous Epith Cells Urine Bacteria Stool Occult Blood NEGATIVE Ethyl Alcohol 196 Acetone, Qual COVID-19 ([facility]) COVID-19 Clin Com 03/04/21 03/04/21 03/04/21 14:32 16:03 16:07 MCV MCH MCHC RDW Plt Count MPV Immature Gran % (Auto) Neut % (Auto) Lymph % (Auto) [place] % (Auto) Eos % (Auto) Baso % (Auto) Lymph # (Auto) [place] # (Auto) Eos # (Auto) Baso # (Auto) Abs Immat Gran (auto) Absolute Neuts (auto) Absolute Nucleated RBC Nucleated RBC % (auto) Smear Tech's Comments PT INR APTT VBG pH 7.32 VBG pCO2 33 VBG pO2 96 VBG HCO3 17 L VBG O2 Saturation 93.0 VBG Base Excess -7.2 Anion Gap Creatinine Estim Creat Clear Calc Estimated GFR POC Glucose 348 H Random Glucose Lactic Acid Lactic Acid Fup @ 2Hr 6.2 H* Lactic Acid Fup @ 4Hr Calcium Phosphorus Total Bilirubin Direct Bilirubin AST ALT Alkaline Phosphatase Total Protein Albumin Lipase Urine Color Urine Appearance Urine pH Ur Specific [place] Urine Protein Urine Glucose (UA) Urine Ketones Urine Blood Urine Nitrite Ur Leukocyte Esterase Urine RBC Urine WBC Ur Squamous Epith Cells Urine Bacteria Stool Occult Blood Ethyl Alcohol Acetone, Qual COVID-19 ([facility]) COVID-19 Clin [employer] 03/04/21 03/04/21 03/04/21 18:12 18:12 18:41 MCV MCH MCHC RDW Plt Count MPV Immature Gran % (Auto) Neut % (Auto) Lymph % (Auto) [place] % (Auto) Eos % (Auto) Baso % (Auto) Lymph # (Auto) [place] # (Auto) Eos # (Auto) Baso # (Auto) Abs Immat Gran (auto) Absolute Neuts (auto) Absolute Nucleated RBC Nucleated RBC % (auto) Smear Tech's Comments PT INR APTT VBG pH VBG pCO2 VBG pO2 VBG HCO3 VBG O2 Saturation VBG Base Excess Anion Gap 29 H Creatinine 2.71 H Estim Creat Clear Calc 32.8 Estimated GFR 24 POC Glucose Random Glucose 377 H* Lactic Acid Lactic Acid Fup @ 2Hr Lactic Acid Fup @ 4Hr 4.8 H* Calcium 6.5 L D Phosphorus Total Bilirubin 0.6 Direct Bilirubin AST 29 ALT 17 Alkaline Phosphatase 80 D Total Protein 5.8 L D Albumin 2.8 L D Lipase Urine Color YELLOW Urine Appearance CLEAR Urine pH 5.0 Ur Specific [place] >= 1.030 H Urine Protein 1+ H Urine Glucose (UA) NEG Urine Ketones 5 Urine Blood TRACE Urine Nitrite NEG Ur Leukocyte Esterase NEG Urine RBC 1-4 Urine WBC 0-2 Ur Squamous Epith Cells 1+ Urine Bacteria TRACE Stool Occult Blood Ethyl Alcohol Acetone, Qual Small H COVID-19 ([facility]) COVID-19 Clin Com 03/04/21 03/04/21 03/04/21 20:19 21:57 22:04 MCV MCH MCHC RDW Plt Count MPV Immature Gran % (Auto) Neut % (Auto) Lymph % (Auto) [place] % (Auto) Eos % (Auto) Baso % (Auto) Lymph # (Auto) [place] # (Auto) Eos # (Auto) Baso # (Auto) Abs Immat Gran (auto) Absolute Neuts (auto) Absolute Nucleated RBC Nucleated RBC % (auto) Smear Tech's Comments PT INR APTT VBG pH VBG pCO2 VBG pO2 VBG HCO3 VBG O2 Saturation VBG Base Excess Anion Gap Creatinine Estim Creat Clear Calc Estimated GFR POC Glucose 264 H 261 H Random Glucose Lactic Acid Lactic Acid Fup @ 2Hr Lactic Acid Fup @ 4Hr Calcium Phosphorus Total Bilirubin Direct Bilirubin AST ALT Alkaline Phosphatase Total Protein Albumin Lipase Urine Color Urine Appearance Urine pH Ur Specific [place] Urine Protein Urine Glucose (UA) Urine Ketones Urine Blood Urine Nitrite Ur Leukocyte Esterase Urine RBC Urine WBC Ur Squamous Epith Cells Urine Bacteria Stool Occult Blood Ethyl Alcohol Acetone, Qual COVID-19 ([facility]) Negative COVID-19 Clin Com See Note 03/04/21 03/04/21 03/05/21 22:04 22:04 00:50 MCV MCH MCHC RDW Plt Count MPV Immature Gran % (Auto) Neut % (Auto) Lymph % (Auto) [place] % (Auto) Eos % (Auto) Baso % (Auto) Lymph # (Auto) [place] # (Auto) Eos # (Auto) Baso # (Auto) Abs Immat Gran (auto) Absolute Neuts (auto) Absolute Nucleated RBC Nucleated RBC % (auto) Smear Tech's Comments PT INR APTT VBG pH VBG pCO2 VBG pO2 VBG HCO3 VBG O2 Saturation VBG Base Excess Anion Gap 20 Creatinine 2.28 H Estim Creat Clear Calc 39.1 Estimated GFR 30 POC Glucose 238 H Random Glucose 312 H Lactic Acid Lactic Acid Fup @ 2Hr Lactic Acid Fup @ 4Hr Calcium 7.1 L D Phosphorus 2.5 L Total Bilirubin 0.7 Direct Bilirubin AST 30 ALT 17 Alkaline Phosphatase 80 Total Protein 6.0 L Albumin 3.0 L Lipase Urine Color Urine Appearance Urine pH Ur Specific [place] Urine Protein Urine Glucose (UA) Urine Ketones Urine Blood Urine Nitrite Ur Leukocyte Esterase Urine RBC Urine WBC Ur Squamous Epith Cells Urine Bacteria Stool Occult Blood Ethyl Alcohol Acetone, Qual COVID-19 ([facility]) COVID-19 Stop Being Watched 03/05/21 03/05/21 03/05/21 00:54 00:54 00:54 MCV 75.4 L MCH 24.4 L MCHC 32.4 RDW 16.7 H Plt Count 205 D MPV 9.5 Immature Gran % (Auto) 0.5 H Neut % (Auto) 84.2 H Lymph % (Auto) 5.6 L [place] % (Auto) 9.4 Eos % (Auto) 0.0 Baso % (Auto) 0.3 Lymph # (Auto) 0.9 L [place] # (Auto) 1.6 H Eos # (Auto) 0.0 Baso # (Auto) 0.1 Abs Immat Gran (auto) 0.08 H Absolute Neuts (auto) 14.1 H Absolute Nucleated RBC 0.000 Nucleated RBC % (auto) 0.0 Smear Tech's Comments VERIFIED PT INR APTT VBG pH VBG pCO2 VBG pO2 VBG HCO3 VBG O2 Saturation VBG Base Excess Anion Gap 19 Creatinine 2.18 H Estim Creat Clear Calc 40.8 Estimated GFR 31 POC Glucose Random Glucose 261 H Lactic Acid 2.8 H* Lactic Acid Fup @ 2Hr Lactic Acid Fup @ 4Hr Calcium 7.5 L Phosphorus Total Bilirubin Direct Bilirubin AST ALT Alkaline Phosphatase Total Protein Albumin Lipase Urine Color Urine Appearance Urine pH Ur Specific [place] Urine Protein Urine Glucose (UA) Urine Ketones Urine Blood Urine Nitrite Ur Leukocyte Esterase Urine RBC Urine WBC Ur Squamous Epith Cells Urine Bacteria Stool Occult Blood Ethyl Alcohol Acetone, Qual COVID-19 ([facility]) COVID-19 Fulcrum SP Materials Com 03/05/21 01:44 MCV MCH MCHC RDW Plt Count MPV Immature Gran % (Auto) Neut % (Auto) Lymph % (Auto) [place] % (Auto) Eos % (Auto) Baso % (Auto) Lymph # (Auto) [place] # (Auto) Eos # (Auto) Baso # (Auto) Abs Immat Gran (auto) Absolute Neuts (auto) Absolute Nucleated RBC Nucleated RBC % (auto) Smear Tech's Comments PT INR APTT VBG pH VBG pCO2 VBG pO2 VBG HCO3 VBG O2 Saturation VBG Base Excess Anion Gap Creatinine Estim Creat Clear Calc Estimated GFR POC Glucose 187 H Random Glucose Lactic Acid Lactic Acid Fup @ 2Hr Lactic Acid Fup @ 4Hr Calcium Phosphorus Total Bilirubin Direct Bilirubin AST ALT Alkaline Phosphatase Total Protein Albumin Lipase Urine Color Urine Appearance Urine pH Ur Specific [place] Urine Protein Urine Glucose (UA) Urine Ketones Urine Blood Urine Nitrite Ur Leukocyte Esterase Urine RBC Urine WBC Ur Squamous Epith Cells Urine Bacteria Stool Occult Blood Ethyl Alcohol Acetone, Qual COVID-19 ([facility]) COVID-19 Clin Com Imaging Radiologist's Impressions: Impressions Abdomen X-Ray 03/04/21 12:51 IMPRESSION: No radiographic evidence of free intra-abdominal air. Assessment and Plan (1) DKA (diabetic ketoacidoses): Qualifiers: Diabetes mellitus complication detail: without coma Diabetes mellitus type: type 1 Qualified Code(s): E10.10 - Type 1 diabetes mellitus with ketoacidosis without coma Status: Acute 56-year-old male with a past medical history of hypertension, hyperlipidemia, diabetes, history of esophageal strictures status post dilation, alcohol abuse, alcoholic gastritis presented to the hospital with a chief complaint of nausea vomiting and abdominal discomfort. Also reported blood in the vomitus. Noted to be in DKA/Ronn DKA: Resolved Diabetes: Will give the patient on Lantus 30 units and insulin sliding scale. RONN: Multifactorial. Renal function improving with IV fluids. Nephrology consult. Avoid nephrotoxins. Lactic Acidosis: Continue IV fluids. Hemoptysis: Currently H&H stable. Likely from retching; IV PPI. Gastroenterology consult Alcohol abuse: CIWA protocol with Ativan. Timing followed multivitamins. For all other chronic conditions, home medications will be continued DVT prophylaxis: SCD boots Code status: Full code
[2021-03-05 02:57] LABS: Reflex Lactate? Lactic Acid Added
[2021-03-05 03:35] LABS: Glucose, Whole Blood 131 mg/dL (60-115)
[2021-03-05] MEDS: Dextrose 5 % and 0.45 % NaCl 1,000 ML 100 ML IVCONT ×3 (03:44→23:30)
[2021-03-05] MEDS: Pantoprazole Sodium 40 MG/10 ML VIAL IVPUSH ×2 (06:36→18:02)
[2021-03-05 07:18] LABS: Glucose, Whole Blood 133 mg/dL (60-115)
[2021-03-05 07:21] LABS: Basophils Percent Auto 0.2 % (0-2); Eosinophils Percent Auto 0.1 % (0-4); Hematocrit 35.5 % (42-52); Hemoglobin 11.4 g/dl (14.0-18.0); Imm Gran Abs Auto 0.15 X10*3/uL (0.00-0.03); Imm Gran Pct Auto 0.8 % (0.0-0.4); Lymphocytes Percent Auto 5.1 % (20-40); MANUAL DIFF FLAG SCAN; Mean Corpuscular HGB Conc 32.1 g/dl (31.0-36.0); Mean Corpuscular Hemoglobin 24.2 pg (27.0-33.0); Mean Corpuscular Volume 75.4 fL (80-98); Mean Platelet Volume 9.8 fL (9.4-12.4); Monocytes Absolute Auto 1.8 X10*3/uL (0.1-1.2); Monocytes Percent Auto 9.2 % (2-11); Neutrophils Percent Auto 84.6 % (45-73); Platelet Count 170 X10*3/uL (160-400); Red Blood Count 4.71 X10*6/uL (4.60-5.80); Red Cell Distribution Width 16.5 % (11.0-16.0); SCAN SMEAR FLAG 1; White Blood Count 18.9 X10*3/uL (4.8-10.8)
[2021-03-05 07:38] LABS: ~Lactic Acid-LAB USE ONLY 1.8 mmol/L (0.5-2.0)
[2021-03-05 07:50] LABS: Anion Gap 16 (12-20); Blood Urea Nitrogen 51 mg/dL (9-16); Calcium 7.7 mg/dL (8.4-10.2); Carbon Dioxide 30 mmol/L (22-29); Chloride 97 mmol/L (96-108); Creatinine Clr Calc Pharmacy 63.2; Estimated Glomerular Filt Rate 52; Glucose Random 151 mg/dL (60-115); Potassium 3.9 mmol/L (3.3-5.1); Sodium 139 mmol/L (135-145)
[2021-03-05] MEDS: LORazepam 1 MG TABLET PO (08:22)
--- NOTE | 2021-03-05 09:02 | PC.NURSE ---
rn administered PRN ativan PO to patient prior to phenobarb protocol being placed by hospitalist. spoke with pharmacy regarding giving IM phenobarb at scheduled time. per pharmacy about an hour before administering ohenobarb. will assess patient in an hour before administering. patient sleeping at this time.
[2021-03-05] MEDS: Metoclopramide HCl 10 MG/2 ML VIAL IVPUSH (10:22)
[2021-03-05] MEDS: PHENobarbitaL sodium 130 MG/ML VIAL 226 MG IM (10:29)
--- NOTE | 2021-03-05 10:37 | PC.NURSE ---
patient awake, shaky, reports nausea, vitals stable. IM phenobarb administered
--- NOTE | 2021-03-05 11:27 | PC.NURSE ---
pt sleeping after medicated with phenobarbital. o2 sat 92% on room air. attempted to apply o2 but patient refused. patient with wet cough. after pt coughed o2 sat up to 97% room air. hospitalist made aware of cough. ordered for chest xray.
[2021-03-05 11:34] LABS: Glucose, Whole Blood 143 mg/dL (60-115)
[2021-03-05] MEDS: PHENobarbitaL sodium 130 MG/ML VIAL 170 MG IM ×2 (14:34→18:02)
[2021-03-05 16:40] LABS: Glucose, Whole Blood 214 mg/dL (60-115)
[2021-03-05] MEDS: Sucralfate 1 GM TABLET PO (18:02)
[2021-03-05] MEDS: 0.9 % Sodium Chloride Flush 3 ML SYRINGE IVFLUSH (18:18)
[2021-03-05 19:20] LABS: Glucose, Whole Blood 248 mg/dL (60-115)
--- NOTE | 2021-03-05 21:19 | MHC.CM.PN ---
CM met with patient. Patient initially told CM he was living on [address], but eventually told CM that he broke up with current girlfriend and has been living in his car for a week. Does not expect to move back in, as she kicked him out. She remains his HCP for now. HCP, Cindy Egan ([phone]) and is on file. Pt takes insulin and has blood sugar monitoring equipment and uses a cane. Pt has long standing hx of alcohol use disorder. Many benefit from [facility] recovery services during hospital stay. D/C plan is indeterminate. Pt states he has no place to stay, no family or friends that will take him in. Pt does have a car. Transportation home is unknown at this time. CM to follow for d/c needs.
[2021-03-05 21:40] LABS: Glucose, Whole Blood 303 mg/dL (60-115)
[2021-03-05] MEDS: Insulin Lispro 100 UNIT/ML 3 ML VIAL SUBCUT (21:57)
[2021-03-05] MEDS: Insulin Glargine,Hum.rec.anlog 100 UNIT/ML 10 ML VIAL 30 UNIT SUBCUT (21:58)
--- NOTE | 2021-03-06 03:04 | P.EN_ITS ---
Event Note Date of Service: 03/06/21 Event Note: Bacteremia: blood Cx gre Gram positive rods; Pending Final sensiti vities; pt afebrile; vitals stable; ID consult
--- NOTE | 2021-03-06 03:04 | PM.EVENT ---
Event Note Date of Service: 03/06/21 Event Note: Bacteremia: blood Cx gre Gram positive rods; Pending Final sensitivities; pt afebrile; vitals stable; ID consult
[2021-03-06 03:20] VITALS: BP 125/67; PULSE 102; RESP 18; TEMP 37; O2SAT 97
[2021-03-06] MEDS: Pantoprazole Sodium 40 MG/10 ML VIAL IVPUSH ×2 (05:44→17:07)
[2021-03-06 06:48] LABS: Hematocrit 35.4 % (42-52); Hemoglobin 11.4 g/dl (14.0-18.0); Mean Corpuscular HGB Conc 32.2 g/dl (31.0-36.0); Mean Corpuscular Volume 74.5 fL (80-98); Mean Platelet Volume 9.8 fL (9.4-12.4); Platelet Count 181 X10*3/uL (160-400); Red Blood Count 4.75 X10*6/uL (4.60-5.80); White Blood Count 11.2 X10*3/uL (4.8-10.8)
[2021-03-06 07:15] LABS: Glucose, Whole Blood 257 mg/dL (60-115)
[2021-03-06 07:31] LABS: Anion Gap 13 (12-20); Blood Urea Nitrogen 19 mg/dL (9-16); Calcium 8.1 mg/dL (8.4-10.2); Carbon Dioxide 35 mmol/L (22-29); Chloride 90 mmol/L (96-108); Creatinine Clr Calc Pharmacy 93.1; Estimated Glomerular Filt Rate > 60; Glucose Random 233 mg/dL (60-115); Potassium 3.2 mmol/L (3.3-5.1); Sodium 135 mmol/L (135-145)
[2021-03-06 07:35] VITALS: BP 131/69; PULSE 114; RESP 20; TEMP 37.3; O2SAT 95
[2021-03-06] MEDS: Thiamine HCL 100 MG TABLET PO (08:53)
[2021-03-06] MEDS: Folic Acid 1 MG TABLET PO (08:53)
[2021-03-06] MEDS: PHENobarbitaL 15 MG TABLET 45 MG PO ×2 (08:53→20:01)
[2021-03-06] MEDS: Sucralfate 1 GM TABLET PO ×2 (08:53→17:07)
[2021-03-06] MEDS: Potassium Chloride ER 20 MEQ TAB.ER.PRT PO (08:53)
[2021-03-06] MEDS: 0.9 % Sodium Chloride Flush 3 ML SYRINGE IVFLUSH ×3 (08:54→20:02)
[2021-03-06] MEDS: Insulin Lispro 100 UNIT/ML 3 ML VIAL SUBCUT ×3 (08:54→20:25)
[2021-03-06] MEDS: 0.9 % Sodium Chloride 1,000 ML 100 ML IVCONT (08:55)
[2021-03-06 11:08] LABS: Glucose, Whole Blood 193 mg/dL (60-115)
[2021-03-06 11:16] VITALS: BP 139/75; PULSE 114; RESP 20; TEMP 37.5; O2SAT 97
--- NOTE | 2021-03-06 11:28 | HO.PM.IMPN ---
Subjective Subjective Date of Service: 03/06/21 Interval History: Patient awake alert answering questions appropriately, complaining of cough productive of clear phlegm, no fever chills, no other acute issues overnight. No recurrent bout of hematemesis. ROS General no headache, no dizziness no fever chills. CVS no chest pain, no palpitation. Respiratory productive cough, no sob. Gastrointestinal no nausea, no vomiting, no abdominal pain Physical Exam Vital Signs: Vital Signs: Last Vital Signs Temp 99.5 F 03/06/21 11:16 Pulse 114 H 03/06/21 11:16 Resp 20 03/06/21 11:16 BP 139/75 03/06/21 11:16 Pulse Ox 97 03/06/21 11:16 Body Mass Index 20.0 General resting in bed, no acute distress. Neck no JVD. CVS regular rate rhythm, Respiratory lungs coarse breath sounds, no respiratory distress, no wheeze, no rhonchi. Gastrointestinal abdomen soft, nontender, bowel sounds audible, no guarding , no rigidity. Extremities no edema. Neuro nonfocal Skin no rash Objective Data Current Medications Generic Name Dose Route Start Last Admin Trade Name Freq PRN Reason Stop Dose Admin Folic Acid 1 mg 03/05/21 09:00 03/06/21 08:53 Folic Acid 1 Mg Tablet PO 03/08/21 08:59 1 mg DAILY GOSIA Administration Sodium Chloride 1,000 mls @ 100 mls/hr 03/06/21 08:30 03/06/21 08:55 Ns IVCONT 100 mls/hr .Q10H GOSIA Administration Insulin Glargine 30 unit 03/05/21 21:00 03/05/21 21:58 Insulin Glargine,Hum.Rec.Anlog 100 Unit/Ml 10 Ml Vial SUBCUT 30 unit BEDTIME GOSIA Administration Insulin Human Lispro 0 unit 03/05/21 07:30 03/06/21 08:54 Insulin Lispro 100 Unit/Ml 3 Ml Vial SUBCUT 6 unit QIDACHS GOSIA Administration Protocol Medication 1 each 03/05/21 09:00 No Benzodiazepines MISCELLANE DAILY [facility] Morphine Sulfate 2 mg 03/05/21 09:58 Morphine Sulfate 2 Mg/Ml Cartridge IVPUSH Q4H PRN Pain, Severe (Pain Scale 7-10) Multivitamins 1 tab 03/05/21 09:00 03/06/21 08:53 B-Complex With Vitamin C Tablet PO 1 tab DAILY GOSIA Administration Pantoprazole Sodium 40 mg 03/05/21 06:30 03/06/21 05:44 Pantoprazole Sodium 40 Mg/10 Ml Vial IVPUSH 40 mg BID@0630,1630 GOSIA Administration Phenobarbital 45 mg 03/06/21 09:00 03/06/21 08:53 Phenobarbital 15 Mg Tablet PO 03/07/21 21:01 45 mg BID GOSIA Administration Protocol Phenobarbital 30 mg 03/08/21 09:00 Phenobarbital 30 Mg Tablet PO 03/09/21 21:01 BID GOSIA Protocol Phenobarbital 30 mg 03/10/21 09:00 Phenobarbital 30 Mg Tablet PO 03/11/21 09:01 DAILY [facility] Protocol Senna 17.2 mg 03/05/21 02:23 Sennosides 8.6 Mg Tablet PO BEDTIME PRN Constipation Sodium Chloride 3 ml 03/05/21 08:00 03/06/21 08:54 0.9 % Sodium Chloride Flush 3 Ml Syringe IVFLUSH 3 ml QSHIFT GOSIA Administration Sucralfate 1 gm 03/05/21 16:30 03/06/21 08:53 Sucralfate 1 Gm Tablet PO 1 gm BIDAC GOSIA Administration Thiamine HCl 100 mg 03/05/21 09:00 03/06/21 08:53 Thiamine Hcl 100 Mg Tablet PO 03/08/21 08:59 100 mg DAILY GOSIA Administration Labs CBC & Chem 7: 03/06/21 05:36 03/06/21 05:36 Microbiology Microbiology Results: Microbiology 03/04/21 14:28 Blood - Venous Blood Culture - Preliminary 03/04/21 14:28 Blood - Venous Blood Culture - Preliminary No growth after 24 hours. Assessment and Plan (1) DKA (diabetic ketoacidoses): Status: Acute (2) Acute GI bleeding: Status: Acute (3) KEYSHAWN (acute kidney injury): Status: Acute (4) Hematemesis/vomiting blood: Status: Acute (5) Leukocytosis: Status: Acute (6) Bacteremia: Status: Acute Assessment and Plan: 56-year-old male with a past medical history of hypertension, hyperlipidemia, diabetes, history of esophageal strictures status post dilation, alcohol abuse, alcoholic gastritis presented to the hospital with a chief complaint of nausea vomiting and abdominal discomfort. Also reported blood in the vomitus. Noted to be in DKA/Keyshawn DKA: Resolved, was due to noncompliance since patient was drinking alcohol heavily and not taking his regular medication Will place patient on diabetic diet and resume home medications Lantus 30 units and insulin sliding scale. Leukocytosis likely due to DKA trending down. KEYSHAWN: Multifactorial due to poor by mouth intake, DKA patient treated with IV fluids renal function improved to baseline. Cough chest x-ray showed no acute infiltrate, will add cough syrup Hypokalemia will replace and follow labs Gram-positive kristen bacteremia likely contamination since patient afebrile and leukocytosis trending down hold on antibiotics follow final culture report. Lactic Acidosis: Resolved with IV hydration Nausea vomiting/Hematemesis no further episodes of hematemesis hematocrit remains stable case discussed with since patient hemodynamically stable will resume diet and recommend compliance with PPI and strong recommendation to abstain from alcohol, patient has history of esophageal stricture, will need close outpatient follow-up with Gastroenterology Alcohol abuse: Patient placed on phenobarb protocol mild tachycardia noted no tremors, obtain care team consult , will check magnesium and phosphorous level. DVT prophylaxis: SCD boots Code status: Full code
[2021-03-06] MEDS: guaiFENesin DM 200/20/10 ML 10 ML SYRUP PO ×3 (11:40→20:01)
--- NOTE | 2021-03-06 14:13 | PM.PNNEP ---
Subjective Subjective Date of Service: 03/06/21 Interval history: Patient seen and examined Physical Exam Vital Signs: Vital Signs: Last Vital Signs Temp 99.5 F 03/06/21 11:16 Pulse 114 H 03/06/21 11:16 Resp 20 03/06/21 11:16 BP 139/75 03/06/21 11:16 Pulse Ox 97 03/06/21 11:16 Body Mass Index 20.0 Objective Data Labs CBC & Chem 7: 03/06/21 05:36 03/06/21 05:36 Labs: Laboratory Results - last 24 hr 03/05/21 03/05/21 03/05/21 16:35 19:17 21:36 WBC RBC Hgb Hct MCV MCH MCHC RDW Plt Count MPV Absolute Nucleated RBC Nucleated RBC % (auto) Sodium Potassium Chloride Carbon Dioxide Anion Gap BUN Creatinine Estim Creat Clear Calc Estimated GFR POC Glucose 214 H 248 H 303 H Random Glucose Calcium 03/06/21 03/06/21 03/06/21 05:36 05:36 07:01 WBC 11.2 H RBC 4.75 Hgb 11.4 L Hct 35.4 L MCV 74.5 L MCH 24.0 L MCHC 32.2 RDW 16.0 Plt Count 181 MPV 9.8 Absolute Nucleated RBC 0.000 Nucleated RBC % (auto) 0.0 Sodium 135 Potassium 3.2 L Chloride 90 L Carbon Dioxide 35 H Anion Gap 13 BUN 19 H D Creatinine 0.77 Estim Creat Clear Calc 93.1 Estimated GFR > 60 POC Glucose 257 H Random Glucose 233 H D Calcium 8.1 L 03/06/21 10:55 WBC RBC Hgb Hct MCV MCH MCHC RDW Plt Count MPV Absolute Nucleated RBC Nucleated RBC % (auto) Sodium Potassium Chloride Carbon Dioxide Anion Gap BUN Creatinine Estim Creat Clear Calc Estimated GFR POC Glucose 193 H Random Glucose Calcium Microbiology Microbiology Results: Microbiology 03/04/21 14:28 Blood - Venous Blood Culture - Preliminary 03/04/21 14:28 Blood - Venous Blood Culture - Preliminary No growth after 24 hours. Assessment & Plan Assessment and plan (1) RONN (acute kidney injury): Status: Acute (2) Hypokalemia: Status: Acute Assessment and Plan: RONN due to compromised kidney perfusion and tubular stress kidney function improving with saline expansion hypokalemia in patient with ETOH would rule out ETOH induced magnesium tubular dysfunction REC check magnesium level replace potassium continue IVF follow kidney function and electrolytes Thank you Time Spent With Patient Time: Total time spent is greater than 50% in coordination of care (as documented) at patient's floor/unit and/or counseling patient:
[2021-03-06 15:00] VITALS: BP 139/75; PULSE 114; RESP 20; TEMP 37.9; O2SAT 97
[2021-03-06 15:52] LABS: Magnesium 1.5 mg/dL (1.6-2.6)
[2021-03-06 15:54] LABS: Glucose, Whole Blood 143 mg/dL (60-115)
[2021-03-06] MEDS: Morphine Sulfate 2 MG/ML CARTRIDGE IVPUSH ×2 (17:45→21:45)
[2021-03-06 19:10] VITALS: BP 138/74; PULSE 122; RESP 18; TEMP 38.4; O2SAT 96
--- NOTE | 2021-03-06 19:30 | PM.EVENT ---
Event Note Date of Service: 03/06/21 Event Note: Fever: Sent Blood cx, UA, CXR; lactic acid empiric Zosyn; IV fluids
[2021-03-06] MEDS: Acetaminophen 325 MG TABLET 650 MG PO (20:01)
[2021-03-06] MEDS: Piperacillin Sodium/Tazobactam 3.375 GM in 0.9 % Sodium Chloride 50 ML IV (20:02)
[2021-03-06] MEDS: 0.9 % Sodium Chloride 1,000 ML 75 ML IVCONT (20:02)
[2021-03-06 20:19] LABS: Glucose, Whole Blood 298 mg/dL (60-115)
[2021-03-06] MEDS: Insulin Glargine,Hum.rec.anlog 100 UNIT/ML 10 ML VIAL 30 UNIT SUBCUT (20:26)
[2021-03-06 20:49] LABS: Glucose Urine UA 500 MG/DL (NEG); Leukocyte Esterase Urine NEG (NEG); Nitrite Urine NEG (NEG); PH 8.5 (5.0-8.0); Specific Gravity - Urine 1.015 (1.005-1.025); Urine Blood NEG (NEG); Urine Ketones 5 MG/DL (NEG)
[2021-03-06 20:55] LABS: Appearance Urine CLEAR; Color Urine YELLOW; Urine Protein 1+ MG/DL (NEG-TRACE)
[2021-03-06 21:07] LABS: Bacteria Urine TRACE /LPF; RBC Urine 0-2 /HPF (0); Squamous Epithelial Cell Urine TRACE /LPF; Urine Talc Crystals TRACE /LPF; WBC Urine 0-2 /HPF (0-4)
[2021-03-06] MEDS: traZODone HCL 25 MG HALFTAB PO (22:01)
[2021-03-06 23:24] VITALS: BP 136/64; PULSE 119; RESP 18; TEMP 37.3; O2SAT 95
--- NOTE | 2021-03-07 02:08 | PC.NURSE ---
Pt temp 101.1 orally and HR 125 beginning of shift. MD notified and order for STAT CXR, UA, Lactic. Pt given PO tylenol and started on IV Zosyn. Pt IVF changed from NS @ 100 ml/hr to NS @ 75 ml/hr. New blood cultures drawn and pending. Pt c/o abd pain and asking for trazadone for sleep. Medicated with PRN 2mg IV morphine and 25mg PO trazadone. Temperature trending down to 99.1 and HR sustaining low 100's. Will cont to monitor and reassess.
[2021-03-07] MEDS: Piperacillin Sodium/Tazobactam 3.375 GM in 0.9 % Sodium Chloride 50 ML IV ×2 (03:15→07:26)
[2021-03-07 03:47] VITALS: BP 138/78; PULSE 107; RESP 18; TEMP 36.9; O2SAT 96
[2021-03-07] MEDS: guaiFENesin DM 200/20/10 ML 10 ML SYRUP PO ×4 (06:06→20:39)
[2021-03-07] MEDS: Pantoprazole Sodium 40 MG/10 ML VIAL IVPUSH (06:07)
[2021-03-07 07:12] LABS: Anion Gap 12 (12-20); Blood Urea Nitrogen 13 mg/dL (9-16); Calcium 7.9 mg/dL (8.4-10.2); Carbon Dioxide 30 mmol/L (22-29); Chloride 96 mmol/L (96-108); Creatinine Clr Calc Pharmacy 87.5; Estimated Glomerular Filt Rate > 60; Glucose Random 239 mg/dL (60-115); Magnesium 1.7 mg/dL (1.6-2.6); Potassium 3.8 mmol/L (3.3-5.1); Sodium 134 mmol/L (135-145)
[2021-03-07 07:16] LABS: Glucose, Whole Blood 223 mg/dL (60-115)
[2021-03-07 07:21] VITALS: BP 140/81; PULSE 106; RESP 20; TEMP 37.6; O2SAT 98
[2021-03-07] MEDS: Insulin Lispro 100 UNIT/ML 3 ML VIAL SUBCUT ×4 (07:25→20:40)
[2021-03-07] MEDS: Sucralfate 1 GM TABLET PO ×2 (07:26→16:30)
[2021-03-07 07:38] LABS: Phosphorus 1.5 mg/dL (2.7-4.5)
[2021-03-07] MEDS: Thiamine HCL 100 MG TABLET PO (10:10)
[2021-03-07] MEDS: PHENobarbitaL 15 MG TABLET 45 MG PO ×2 (10:10→20:39)
[2021-03-07] MEDS: Folic Acid 1 MG TABLET PO (10:10)
[2021-03-07] MEDS: 0.9 % Sodium Chloride 1,000 ML 100 ML IVCONT (10:15)
--- NOTE | 2021-03-07 10:27 | CONS_ITS ---
DATE OF SERVICE: 03/06/2021 HISTORY OF PRESENT ILLNESS: I was asked to assist in management of this 56-year-old patient with normal baseline kidney function, who presented to the hospital with abdominal pain, was noted to have elevated serum creatinine. The patient apparently has had nausea, vomiting, and abdominal pain for several days and he denies any chest pain or shortness of breath. He has a history of drinking alcohol and reports his last drink on the night before his admission. At the time of consultation, he is comfortable. Denies any nausea, vomiting, or diarrhea. PAST MEDICAL HISTORY: Remarkable for hypertension, dyslipidemia, alcohol abuse, depression, diabetes mellitus, esophageal stricture, gastritis, history of GI bleed, hypomagnesemia, pancreatitis, seizure disorder, and supraventricular tachycardia. MEDICATIONS: Outpatient were reviewed and included insulin, omeprazole, trazodone, multivitamin, lisinopril, folic acid, and bupropion. ALLERGIES: HE IS NOT ALLERGIC TO MEDICATIONS. SOCIAL HISTORY: He has a history of heavy drinking. FAMILY HISTORY: Negative for kidney disease. REVIEW OF SYSTEMS: Ten-point review of systems negative, except for pertinent in the history of present illness. PHYSICAL EXAMINATION: VITAL SIGNS: The blood pressure is 139/75, heart rate 114, respiratory rate 20, and temperature 99.5. CONSTITUTIONAL: Looks his stated age, in no acute distress. NEUROLOGIC: Alert and awake. HEENT: Head, atraumatic and normocephalic. Eyes, pupils are equal and reactive to light. [place] conjunctivae. Anicteric sclerae. NECK: Supple. LUNGS: Good air entry bilaterally. CARDIOVASCULAR: S1 and S2. No rub. ABDOMEN: Soft and nontender. EXTREMITIES: No peripheral edema. LABORATORY DATA: Labs on admission showed sodium 132, potassium 5.5, chloride 75, CO2 17, BUN 46, and creatinine is 3.85. Labs today showed sodium 135, potassium 3.2, chloride 90, CO2 35, BUN 19, and creatinine 0.77. IMPRESSION: 1. Acute kidney injury. 2. Hyponatremia. 3. Hyperkalemia. This is a patient, who presented with acute kidney injury due to compromised kidney perfusion and possible tubular stress. He does have an elevated serum potassium due to impaired distal flow. He most likely has hypovolemic hyponatremia. Kidney function has improved with volume expansion and currently he has a low potassium. I will continue with IV fluid, replace with potassium. I would check his magnesium as he could have alcohol-induced tubular magnesium dysfunction. Check his magnesium level as the patient is with alcohol. Thank you for allowing me to participate in the care of this patient. Sydni Bowers MD GF/MODL / [phone]
[2021-03-07 11:19] LABS: Glucose, Whole Blood 245 mg/dL (60-115)
--- NOTE | 2021-03-07 11:28 | P.CNID_ITS ---
History of Present Illness Data of Consult Service Date: 03/07/21 Requesting physician: Tristen Tianjero Primary Care Provider: [facility] Reason for consult: fever of unknown origin He presents to hospital with nausea and vomiting for two days He has esophageal stricture concerns He has fever overnight He has no cough or diarrhea at this time Review of Systems Review of Systems: Yes all other systems are reviewed and are negative PMFSH Past Medical History Medical History (Updated 03/07/21 @ 11:33 by Angelica Mcmahon MD) Acute alcoholic gastritis Alcohol use disorder, severe, dependence Alcoholism Depressed Diabetes Esophageal stricture Fever of unknown origin Gastritis GIB (gastrointestinal bleeding) Head injury HLD (hyperlipidemia) HTN (hypertension) Hypomagnesemia Hypophosphatemia Odynophagia On beta cher at home Pancreatitis Seizures Supraventricular tachycardia Type 2 diabetes mellitus Vitamin D deficiency Family History Family History Father Diabetes Family history: reviewed and not pertinent Surgical History Surgical History H/O colonoscopy History of esophagogastroduodenoscopy (EGD) Social History Social History Household Members: Spouse and Other Household Members Other:: homeless at present Housing: Homeless Do you presently have visiting nurse or other home services: No Alcohol intake: current Alcohol intake frequency: does not drink Smoking Status: Never smoker Smoked in Last 30 Days: No Patient Interested in Nicotine Replacement: No Patient Given Instructions on How to Stop Smoking: No Second Hand Smoke Exposure: No Use of substances other than those prescribed or required for medical reasons: No Currently Displaying Signs/Symptoms of Drug Intoxication Withdrawal: No Any prior treatment program specific to substance use: No Have you been hit, kicked, punched, or otherwise hurt by someone within the past year? If so, by whom?: No Do you feel safe in your current relationship?: No Current Relationship Is there a partner from a previous relationship who is making you feel unsafe now?: No Are you made to feel afraid or neglected: No Advance Directives: No Advance Directives Information Provided: No Do you have thoughts of harming others: None Do you have a plan to hurt others: No Plan Recently lost weight without trying: Yes service: No Current occupational status: unemployed and disabled Meds Allergies Allergy/AdvReac Type Severity Reaction Status Date / Time No Known Allergies Allergy Verified 02/14/21 10:01 Active Medications: Current Medications Generic Name Dose Route Start Last Admin Trade Name Freq PRN Reason Stop Dose Admin Acetaminophen 650 mg 03/06/21 19:30 03/06/21 20:01 Acetaminophen 325 Mg Tablet PO 650 mg Q6H PRN Administration pain/fever Folic Acid 1 mg 03/05/21 09:00 03/07/21 10:10 Folic Acid 1 Mg Tablet PO 03/08/21 08:59 1 mg DAILY [facility] Administration Guaifenesin/Dextromethorphan 10 ml 03/06/21 11:45 03/07/21 06:06 Guaifenesin Dm 200/20/10 Ml 10 Ml Syrup PO 10 ml Q6H [facility] Administration Sodium Chloride 1,000 mls @ 100 mls/hr 03/06/21 08:30 03/07/21 10:15 Ns IVCONT 100 mls/hr .Q10H [facility] Administration Piperacillin Sod/Tazobactam 50 mls @ 100 mls/hr 03/06/21 20:00 03/07/21 07:56 Sod 3.375 gm/ Sodium Chloride IV Infused Q6H [facility] Infusion Sodium Chloride 1,000 mls @ 75 mls/hr 03/06/21 19:45 03/07/21 11:03 Ns IVCONT Not Given .[id number] [facility] Insulin Glargine 30 unit 03/05/21 21:00 03/06/21 20:26 Insulin Glargine,Hum.Rec.Anlog 100 Unit/Ml 10 Ml Vial SUBCUT 30 unit BEDTIME [facility] Administration Insulin Human Lispro 0 unit 03/05/21 07:30 03/07/21 07:25 Insulin Lispro 100 Unit/Ml 3 Ml Vial SUBCUT 4 unit QIDACHS [facility] Administration Protocol Medication 1 each 03/05/21 09:00 No Benzodiazepines MISCELLANE DAILY [facility] Morphine Sulfate 2 mg 03/05/21 09:58 03/06/21 21:45 Morphine Sulfate 2 Mg/Ml Cartridge IVPUSH 2 mg Q4H PRN Administration Pain, Severe (Pain Scale 7-10) Multivitamins 1 tab 03/05/21 09:00 03/07/21 10:11 B-Complex With Vitamin C Tablet PO 1 tab DAILY [facility] Administration Pantoprazole Sodium 40 mg 03/05/21 06:30 03/07/21 06:07 Pantoprazole Sodium 40 Mg/10 Ml Vial IVPUSH 40 mg BID@0630,1630 [facility] Administration Phenobarbital 45 mg 03/06/21 09:00 03/07/21 10:10 Phenobarbital 15 Mg Tablet PO 03/07/21 21:01 45 mg BID [facility] Administration Protocol Phenobarbital 30 mg 03/08/21 09:00 Phenobarbital 30 Mg Tablet PO 03/09/21 21:01 BID [facility] Protocol Phenobarbital 30 mg 03/10/21 09:00 Phenobarbital 30 Mg Tablet PO 03/11/21 09:01 DAILY [facility] Protocol Senna 17.2 mg 03/05/21 02:23 Sennosides 8.6 Mg Tablet PO BEDTIME PRN Constipation Sodium Chloride 3 ml 03/05/21 08:00 03/07/21 07:26 0.9 % Sodium Chloride Flush 3 Ml Syringe IVFLUSH Not Given QSHIFT [facility] Sucralfate 1 gm 03/05/21 16:30 03/07/21 07:26 Sucralfate 1 Gm Tablet PO 1 gm BIDAC [facility] Administration Thiamine HCl 100 mg 03/05/21 09:00 03/07/21 10:10 Thiamine Hcl 100 Mg Tablet PO 03/08/21 08:59 100 mg DAILY GOSIA Administration Home Medications Medication Instructions Recorded Confirmed Last Taken Type bupropion HCl 100 mg PO DAILY 11/13/20 03/05/21 Unknown History folic acid 1 mg PO DAILY 11/13/20 03/05/21 Unknown History lisinopril 20 mg PO DAILY 11/13/20 03/05/21 Unknown History multivitamin 1 tab PO DAILY 11/13/20 03/05/21 Unknown History thiamine HCl (vitamin B1) 100 mg PO DAILY 11/13/20 03/05/21 Unknown History trazodone 50 mg PO BEDTIME 11/13/20 03/05/21 Unknown History omeprazole 40 mg PO BID 12/11/20 03/05/21 Unknown History insulin aspart U-100 100 unit/mL See Rx Instructions .ROUTE .COMPLEX 02/13/21 0 03/05/21 Unknown History (3 mL) subcutaneous pen insulin detemir U-100 100 unit/mL 35 unit SUBCUT BEDTIME ml 02/13/21 03/05/21 Unknown History (3 mL) subcutaneous pen Physical Exam Vital Signs: Vital Signs: Last Vital Signs Temp 99.7 F 03/07/21 07:21 Pulse 106 H 03/07/21 07:21 Resp 20 03/07/21 07:21 BP 140/81 H 03/07/21 07:21 Pulse Ox 98 03/07/21 07:21 Body Mass Index 20.0 Const: General: cooperative Orientation/consciousness: patient oriented x3 HENMT: Ears: hearing grossly normal bilaterally Mouth: Normal oral and palatal mucosa present Resp: Effort & Inspection: normal respiratory effort Cardio: Rate: regular rate Rhythm: regular rhythm GI: Palpation (GI): Soft to palpation and nontender Skin: General skin exam: no rashes or lesions noted Neuro: General: patient oriented x3 Extrem: General: Yes normal to inspection Results Labs CBC & Chem 7: 03/06/21 05:36 03/07/21 05:46 Labs: BMP 03/07/21 05:46 Sodium 134 L Potassium 3.8 Chloride 96 Carbon Dioxide 30 H BUN 13 Creatinine 0.82 Calcium 7.9 L Urine 03/06/21 Range/Units 20:35 Urine Color YELLOW Urine Appearance CLEAR Urine pH 8.5 H (5.0-8.0) Ur Specific [place] 1.015 (1.005-1.025) Urine Protein 1+ H (NEG-TRACE) MG/DL Urine Glucose (UA) 500 H (NEG) MG/DL Microbiology Microbiology Results: Microbiology 03/04/21 14:28 Blood - Venous Blood Culture - Final Corynebacterium species 03/04/21 14:28 Blood - Venous Blood Culture - Preliminary No growth after 48 hours. Assessment and Plan (1) Bacteremia: Problem details: corynebacterium ,contaminant Status: Acute No antibiotics (2) DKA (diabetic ketoacidoses): Qualifiers: Diabetes mellitus complication detail: without coma Diabetes mellitus type: type 1 Qualified Code(s): E10.10 - Type 1 diabetes mellitus with ketoacidosis without coma Status: Acute (3) Acute GI bleeding: Status: Acute (4) Fever of unknown origin: Problem details: no infection or pneumonia seen at this time GI bleed and even possible alcohol withdrawal can be source Status: Acute Hold antibiotics at this time Reevaluate as needed
[2021-03-07 11:48] VITALS: BP 153/78; PULSE 102; RESP 18; TEMP 36.7; O2SAT 99
--- NOTE | 2021-03-07 12:30 | MHC.CM.PN ---
per multi dis rounds pt has a 101 fever possible dc tomorrow pt to be seen by care team
--- NOTE | 2021-03-07 14:56 | P.PNIM_ITS ---
Subjective Subjective Date of Service: 03/07/21 Interval History: Patient complaining of abdominal discomfort and dysphagia, requesting to undergo dilatation for esophageal stricture by Dr. Hubbard, admits that cough is improving denies shortness of breath, events from last night noted patient had a fever of 101, since bent patient had no further fever spikes. ROS General no headache, no dizziness no fever chills. CVS no chest pain, no palpitation. Respiratory productive cough, no sob. Gastrointestinal no nausea, no vomiting, abdominal pain and dysphagia Physical Exam Vital Signs: Vital Signs: Last Vital Signs Temp 98.1 F 03/07/21 11:48 Pulse 102 H 03/07/21 11:48 Resp 18 03/07/21 11:48 BP 153/78 H 03/07/21 11:48 Pulse Ox 99 03/07/21 11:48 Body Mass Index 20.0 General resting in bed, no acute distress. Neck no JVD. CVS regular rate rhythm, Respiratory coarse breath sounds, no respiratory distress, no wheeze, no rhonchi. Gastrointestinal abdomen soft, nontender, bowel sounds audible, no guarding , no rigidity. Extremities no edema. Neuro nonfocal Skin no rash Objective Data Current Medications Generic Name Dose Route Start Last Admin Trade Name Freq PRN Reason Stop Dose Admin Acetaminophen 650 mg 03/06/21 19:30 03/06/21 20:01 Acetaminophen 325 Mg Tablet PO 650 mg Q6H PRN Administration pain/fever Folic Acid 1 mg 03/05/21 09:00 03/07/21 10:10 Folic Acid 1 Mg Tablet PO 03/08/21 08:59 1 mg DAILY [facility]OS[facility] Administration Guaifenesin/Dextromethorphan 10 ml 03/06/21 11:45 03/07/21 11:31 Guaifenesin Dm 200/20/10 Ml 10 Ml Syrup PO 10 ml Q6H [facility] Administration Sodium Chloride 1,000 mls @ 100 mls/hr 03/06/21 08:30 03/07/21 10:15 Ns IVCONT 100 mls/hr .Q10H [facility] Administration Sodium Chloride 1,000 mls @ 75 mls/hr 03/06/21 19:45 03/07/21 11:59 Ns IVCONT Infused .[id number] [facility] Infusion Insulin Glargine 30 unit 03/05/21 21:00 03/06/21 20:26 Insulin Glargine,Hum.Rec.Anlog 100 Unit/Ml 10 Ml Vial SUBCUT 30 unit BEDTIME [facility] Administration Insulin Human Lispro 0 unit 03/05/21 07:30 03/07/21 11:31 Insulin Lispro 100 Unit/Ml 3 Ml Vial SUBCUT 4 unit QIDACHS [facility] Administration Protocol Medication 1 each 03/05/21 09:00 No Benzodiazepines MISCELLANE DAILY [facility] Morphine Sulfate 2 mg 03/05/21 09:58 03/06/21 21:45 Morphine Sulfate 2 Mg/Ml Cartridge IVPUSH 2 mg Q4H PRN Administration Pain, Severe (Pain Scale 7-10) Multivitamins 1 tab 03/05/21 09:00 03/07/21 10:11 B-Complex With Vitamin C Tablet PO 1 tab DAILY [facility] Administration Pantoprazole Sodium 40 mg 03/05/21 06:30 03/07/21 06:07 Pantoprazole Sodium 40 Mg/10 Ml Vial IVPUSH 40 mg BID@0630,1630 [facility] Administration Phenobarbital 45 mg 03/06/21 09:00 03/07/21 10:10 Phenobarbital 15 Mg Tablet PO 03/07/21 21:01 45 mg BID [facility] Administration Protocol Phenobarbital 30 mg 03/08/21 09:00 Phenobarbital 30 Mg Tablet PO 03/09/21 21:01 BID [facility] Protocol Phenobarbital 30 mg 03/10/21 09:00 Phenobarbital 30 Mg Tablet PO 03/11/21 09:01 DAILY [facility] Protocol Senna 17.2 mg 03/05/21 02:23 Sennosides 8.6 Mg Tablet PO BEDTIME PRN Constipation Sodium Chloride 3 ml 03/05/21 08:00 03/07/21 07:26 0.9 % Sodium Chloride Flush 3 Ml Syringe IVFLUSH Not Given QSHIFT [facility] Sucralfate 1 gm 03/05/21 16:30 03/07/21 07:26 Sucralfate 1 Gm Tablet PO 1 gm BIDAC [facility] Administration Thiamine HCl 100 mg 03/05/21 09:00 03/07/21 10:10 Thiamine Hcl 100 Mg Tablet PO 03/08/21 08:59 100 mg DAILY [facility]OSIA Administration Labs CBC & Chem 7: 03/06/21 05:36 03/07/21 05:46 Microbiology Microbiology Results: Microbiology 03/04/21 14:28 Blood - Venous Blood Culture - Final Corynebacterium species 03/04/21 14:28 Blood - Venous Blood Culture - Preliminary No growth after 48 hours. Assessment and Plan (1) Fever: Status: Acute (2) Alcohol abuse with withdrawal: Status: Acute (3) Hypophosphatemia: Status: Acute (4) KEYSHAWN (acute kidney injury): Status: Acute (5) Hypokalemia: Status: Acute (6) Bacteremia: Problem details: corynebacterium ,contaminant Status: Acute (7) DKA (diabetic ketoacidoses): Status: Acute (8) Esophageal stricture: Status: Acute Assessment and Plan: 56-year-old male with a past medical history of hypertension, hyperlipidemia, diabetes, history of esophageal strictures status post dilation, alcohol abuse, alcoholic gastritis presented to the hospital with a chief complaint of nausea vomiting and abdominal discomfort. Also reported blood in the vomitus. Noted to be in DKA/Keyshawn Fever patient had fever 101 last night, all workup including urinalysis and chest x-ray unremarkable no recurrent fever since, therefore will discontinue IV antibiotic case discussed with ID DKA: Resolved, was due to noncompliance since patient was drinking alcohol heavily and not taking his regular medication Will place patient on diabetic diet and resume home medications Lantus 30 units and insulin sliding scale. Leukocytosis likely due to DKA trending down. KEYSHAWN: Multifactorial due to poor by mouth intake, DKA patient treated with IV fluids renal function improved to baseline. Will DC IV fluids Hypo magnesemia resolved Hypophosphatemia will replace likely due to poor by mouth intake. Cough chest x-ray showed no acute infiltrate, will add cough syrup Hypokalemia potassium improved to 3.8, status post potassium replacement . Gram-positive kristen bacteremia Corynebacterium species unlikely pathogen Lactic Acidosis: Resolved with IV hydration Nausea vomiting/Hematemesis/odynophagia no further episodes of hematemesis hematocrit remains stable patient tolerating diet, recommend compliance with PPI and strong recommendation to abstain from alcohol, patient has history of esophageal stricture, and since having odynophagia case discussed with Dr. uhbbard he arranged for upper endoscopy and possible dilatation for March 10 Will keep patient NPO after midnight March 09 Alcohol abuse: Patient placed on phenobarb protocol mild tachycardia noted, no tremors, strongly advised to abstain from alcohol, follow care team recommendation. DVT prophylaxis: SCD boots Code status: Full code
[2021-03-07 15:13] VITALS: BP 147/70; PULSE 95; RESP 20; TEMP 37.2; O2SAT 99
[2021-03-07 16:19] LABS: Glucose, Whole Blood 181 mg/dL (60-115)
[2021-03-07] MEDS: Sodium,Potassium Phosphates POWD.PACK 1 PACKET PO ×2 (16:30→20:39)
[2021-03-07] MEDS: Magnesium Oxide 400 MG TABLET PO (16:30)
[2021-03-07 19:21] VITALS: BP 136/68; PULSE 92; RESP 20; TEMP 37.2; O2SAT 99
[2021-03-07 20:05] LABS: Glucose, Whole Blood 297 mg/dL (60-115)
[2021-03-07] MEDS: Insulin Glargine,Hum.rec.anlog 100 UNIT/ML 10 ML VIAL 30 UNIT SUBCUT (20:39)
[2021-03-07] MEDS: traZODone HCL 50 MG TABLET PO (20:43)
[2021-03-07 23:20] VITALS: BP 140/78; PULSE 105; RESP 18; TEMP 37; O2SAT 100
[2021-03-08] MEDS: 0.9 % Sodium Chloride 1,000 ML 75 ML IVCONT (00:27)
[2021-03-08 03:22] VITALS: BP 138/66; PULSE 89; RESP 18; TEMP 36.4; O2SAT 99
[2021-03-08] MEDS: guaiFENesin DM 200/20/10 ML 10 ML SYRUP PO ×3 (05:16→16:51)
[2021-03-08 07:41] LABS: Glucose, Whole Blood 322 mg/dL (60-115)
[2021-03-08] MEDS: Sucralfate 1 GM TABLET PO ×2 (07:50→16:51)
[2021-03-08] MEDS: Sodium,Potassium Phosphates POWD.PACK 1 PACKET PO ×4 (07:50→21:40)
[2021-03-08] MEDS: 0.9 % Sodium Chloride Flush 3 ML SYRINGE IVFLUSH (07:51)
[2021-03-08] MEDS: Magnesium Oxide 400 MG TABLET PO ×2 (07:51→16:51)
[2021-03-08] MEDS: PHENobarbitaL 30 MG TABLET PO ×2 (07:51→21:40)
[2021-03-08] MEDS: Insulin Lispro 100 UNIT/ML 3 ML VIAL SUBCUT ×3 (07:56→16:57)
[2021-03-08 08:00] VITALS: BP 136/69; PULSE 89; RESP 16; TEMP 36.6; O2SAT 96
[2021-03-08 11:22] LABS: Glucose, Whole Blood 221 mg/dL (60-115)
[2021-03-08 11:28] VITALS: BP 149/75; PULSE 78; RESP 18; TEMP 36.4; O2SAT 100
--- NOTE | 2021-03-08 11:38 | MHC.RECOVSUP ---
Recovery Support note: Patient is a 56 year old Mongolian speaking male who presented to [facility] due to bloody stool and vomiting. Patient was medically admitted and this resume writer met with patient in room 452-1 to discuss his alcohol use and outpatient supports. Patient is known to this resume writer from previous consultations. Patient reports a period of sobriety lasting several months earlier this year. Patient reports he was able to get his car registered and on the road and that things were going well. Patient's went to [place] for a short period of time and patient reports he felt isolated and he felt like he could have one drink to take the edge off. Patient reports he ended up having many drinks and when his came home she kicked him out and threw all of his clothes out. Patient reports he was angry and threw his clothes out of his car and has been living in his car for several days wearing the same clothes. Patient initially wanted to leave [place], stating that he needs to get to the bank before noon to get money so that he can pay his sober friend and sleep at that friend's house. Patient spoke with hospitalist and agreed to stay until Wednesday and he will be able to get money and stay with that friend after discharge. Patient reports I don't stay anywhere for free. Patient reports his does not allow him to have any friends and also does not allow him to go to synagogue. Patient reports this isolation has been weighing down on him and he attributes his relapse to this. This resume writer discussed [facility] for [place] with patient and patient expressed interest in getting connected with this support. This resume writer will introduce patient to a manager recovery from [facility] [place] on 03/09. Discussed IOP and provided patient with information on this resource. Patient reports he has a smart phone and can access virtual groups while staying with his sober friend. Discussed coping skills and relapse prevention planning with patient. Patient reports he was previously on Vivitrol and that he found it helpful at the time however he stopped receiving it due to COVID. Patient reports he is interested in getting Vivitrol again. This resume writer will refer patient to the Recovery Support RN to discuss the [facility] and Vivitrol on 03/10. Discussed the possibility of patient going to an inpatient treatment program after discharge and patient declined at this time due to not having any clothes to change into and his current outfit being dirty. Patient reports confidence he will be able to stay with a sober friend and work on his recovery outpatient.
--- NOTE | 2021-03-08 13:21 | HO.PM.IMPN ---
Subjective Subjective Date of Service: 03/08/21 Interval History: Patient feeling better this a.m. complaining of persistent odynophagia but improving, tolerating diet, no recurrent fever, no other acute issues overnight. ROS General no headache, no dizziness no fever chills. CVS no chest pain, no palpitation. Respiratory cough improving, no sob. Gastrointestinal no nausea, no vomiting, abdominal pain and dysphagia Physical Exam Vital Signs: Vital Signs: Last Vital Signs Temp 97.5 F 03/08/21 11:28 Pulse 78 03/08/21 11:28 Resp 18 03/08/21 11:28 BP 149/75 H 03/08/21 11:28 Pulse Ox 100 03/08/21 11:28 Body Mass Index 20.0 General no acute distress. Neck no JVD. CVS regular rate rhythm, Respiratory coarse breath sounds, no respiratory distress, no wheeze, no rhonchi. Gastrointestinal abdomen soft, nontender, bowel sounds audible, no guarding , no rigidity. Extremities no edema. Neuro nonfocal, no tremors Skin no rash Objective Data Current Medications Generic Name Dose Route Start Last Admin Trade Name Freq PRN Reason Stop Dose Admin Acetaminophen 650 mg 03/06/21 19:30 03/06/21 20:01 Acetaminophen 325 Mg Tablet PO 650 mg Q6H PRN Administration pain/fever Guaifenesin/Dextromethorphan 10 ml 03/06/21 11:45 03/08/21 12:16 Guaifenesin Dm 200/20/10 Ml 10 Ml Syrup PO 10 ml Q6H GOSIA Administration Insulin Glargine 30 unit 03/05/21 21:00 03/07/21 20:39 Insulin Glargine,Hum.Rec.Anlog 100 Unit/Ml 10 Ml Vial SUBCUT 30 unit BEDTIME GOSIA Administration Insulin Human Lispro 0 unit 03/05/21 07:30 03/08/21 12:16 Insulin Lispro 100 Unit/Ml 3 Ml Vial SUBCUT 6 unit QIDACHS [facility] Administration Protocol Magnesium Oxide 400 mg 03/07/21 17:30 03/08/21 07:51 Magnesium Oxide 400 Mg Tablet PO 400 mg BIDPC [facility] Administration Medication 1 each 03/05/21 09:00 No Benzodiazepines MISCELLANE DAILY [facility] Multivitamins 1 tab 03/05/21 09:00 03/08/21 07:51 B-Complex With Vitamin C Tablet PO 1 tab DAILY GOSIA Administration Omeprazole 40 mg 03/08/21 06:30 03/08/21 05:16 Omeprazole 20 Mg/10 Ml Susp.Recon PO 40 mg DAILY@0630 GOSIA Administration Phenobarbital 30 mg 03/08/21 09:00 03/08/21 07:51 Phenobarbital 30 Mg Tablet PO 03/09/21 21:01 30 mg BID GOSIA Administration Protocol Phenobarbital 30 mg 03/10/21 09:00 Phenobarbital 30 Mg Tablet PO 03/11/21 09:01 DAILY [facility] Protocol Potassium Phos/Sodium Phos 1 packet 03/07/21 17:00 03/08/21 12:16 Sodium,Potassium Phosphates Powd.Pack PO 1 packet QID [facility] Administration Senna 17.2 mg 03/05/21 02:23 Sennosides 8.6 Mg Tablet PO BEDTIME PRN Constipation Sodium Chloride 3 ml 03/05/21 08:00 03/08/21 07:51 0.9 % Sodium Chloride Flush 3 Ml Syringe IVFLUSH 3 ml QSHIFT [facility] Administration Sucralfate 1 gm 03/05/21 16:30 03/08/21 07:50 Sucralfate 1 Gm Tablet PO 1 gm BIDAC [facility] Administration Trazodone HCl 50 mg 03/07/21 19:54 03/07/21 20:43 Trazodone Hcl 50 Mg Tablet PO 50 mg BEDTIME PRN Administration Insomnia Labs CBC & Chem 7: 03/06/21 05:36 03/07/21 05:46 Microbiology Microbiology Results: Microbiology 03/06/21 20:07 Blood - Venous Blood Culture - Preliminary No growth after 24 hours. 03/06/21 20:08 Blood - Venous Blood Culture - Preliminary No growth after 24 hours. 03/04/21 14:28 Blood - Venous Blood Culture - Final Corynebacterium species 03/04/21 14:28 Blood - Venous Blood Culture - Preliminary No growth after 48 hours. Assessment and Plan (1) Alcohol abuse with withdrawal: Status: Acute (2) Fever: Status: Acute (3) KEYSHAWN (acute kidney injury): Status: Acute (4) Hypokalemia: Status: Acute (5) Hypomagnesemia: Status: Acute (6) Hypophosphatemia: Status: Acute (7) Hematemesis/vomiting blood: Status: Acute Assessment and Plan: 56-year-old male with a past medical history of hypertension, hyperlipidemia, diabetes, history of esophageal strictures status post dilation, alcohol abuse, alcoholic gastritis presented to the hospital with a chief complaint of nausea vomiting and abdominal discomfort. Also reported blood in the vomitus. Noted to be in DKA/Keyshawn Fever patient had 1 episode of fever 101 > 24 hrs no recurrence since, all workup including urinalysis and chest x-ray unremarkable , follow clinical course hold antibiotics case discussed with ID DKA: Resolved, was due to noncompliance since patient was drinking alcohol heavily and not taking his regular medication Noted to have elevated blood sugars, continue diabetic diet, Lantus 30 units and adjust insulin sliding scale. Leukocytosis likely due to DKA trending down. KEYSHAWN: Multifactorial due to poor by mouth intake, and DKA patient treated with IV fluids renal function improved to baseline. Hypomagnesemia resolved Hypophosphatemia will replace likely due to poor by mouth intake. Follow level. Cough chest x-ray showed no acute infiltrate, will add cough syrup Hypokalemia potassium improved to 3.8, status post potassium replacement . Gram-positive kristen bacteremia Corynebacterium species unlikely pathogen Lactic Acidosis: Resolved with IV hydration Nausea vomiting/Hematemesis/odynophagia no further episodes of hematemesis, hematocrit remains stable patient tolerating diet, recommend compliance with PPI and strong recommendation to abstain from alcohol, patient has history of esophageal stricture, and since having odynophagia case discussed with Dr. Reyes he will have upper endoscopy and possible dilatation March 10 Will keep patient NPO after midnight March 09 Alcohol abuse: Continue phenobarb protocol, tachycardia resolved, no tremors, strongly advised to abstain from alcohol, follow care team recommendation. DVT prophylaxis: SCD boots Code status: Full code
[2021-03-08 15:52] VITALS: BP 150/72; PULSE 85; RESP 20; TEMP 37.1; O2SAT 98
[2021-03-08 16:09] LABS: Glucose, Whole Blood 268 mg/dL (60-115)
[2021-03-08 19:34] VITALS: BP 151/72; PULSE 86; RESP 18; TEMP 37.2; O2SAT 100
[2021-03-08 20:06] LABS: Glucose, Whole Blood 280 mg/dL (60-115)
[2021-03-08] MEDS: Insulin Glargine,Hum.rec.anlog 100 UNIT/ML 10 ML VIAL 30 UNIT SUBCUT (21:39)
[2021-03-08] MEDS: traZODone HCL 50 MG TABLET PO (21:40)
[2021-03-08 23:49] VITALS: BP 150/73; PULSE 97; RESP 12; TEMP 37; O2SAT 99
[2021-03-09 03:36] VITALS: BP 135/63; PULSE 82; RESP 12; TEMP 36.4; O2SAT 100
[2021-03-09 07:34] LABS: Glucose, Whole Blood 286 mg/dL (60-115)
[2021-03-09 08:00] VITALS: BP 138/56; PULSE 87; RESP 16; TEMP 36.6; O2SAT 100
[2021-03-09] MEDS: Sodium,Potassium Phosphates POWD.PACK 1 PACKET PO ×4 (08:03→22:13)
[2021-03-09] MEDS: Sucralfate 1 GM TABLET PO ×2 (08:05→17:21)
[2021-03-09] MEDS: PHENobarbitaL 30 MG TABLET PO ×2 (08:06→22:13)
[2021-03-09] MEDS: Magnesium Oxide 400 MG TABLET PO ×2 (08:06→17:21)
[2021-03-09] MEDS: Insulin Lispro 100 UNIT/ML 3 ML VIAL SUBCUT ×3 (08:07→17:25)
[2021-03-09 12:00] VITALS: PULSE 88
--- NOTE | 2021-03-09 12:12 | HO.PM.IMPN ---
Subjective Subjective Date of Service: 03/09/21 Interval History: Patient offers no complaint, tolerating diet, denies nausea vomiting no abdominal pain, still with intermittent odynophagia. ROS General no headache, no dizziness no fever chills. CVS no chest pain, no palpitation. Respiratory cough improving, no sob. Gastrointestinal no nausea, no vomiting,no abdominal pain Physical Exam Vital Signs: Vital Signs: Last Vital Signs Temp 97.8 F 03/09/21 08:00 Pulse 87 03/09/21 08:00 Resp 16 03/09/21 08:00 BP 138/56 L 03/09/21 08:00 Pulse Ox 100 03/09/21 08:00 Body Mass Index 20.0 General no acute distress. Neck no JVD. CVS regular rate rhythm, Respiratory clear to auscultation, no respiratory distress, no wheeze, no rhonchi. Gastrointestinal abdomen soft, nontender, bowel sounds audible, no guarding , no rigidity. Extremities no edema. Neuro nonfocal, no tremors Skin no rash Objective Data Current Medications Generic Name Dose Route Start Last Admin Trade Name Freq PRN Reason Stop Dose Admin Acetaminophen 650 mg 03/06/21 19:30 03/06/21 20:01 Acetaminophen 325 Mg Tablet PO 650 mg Q6H PRN Administration pain/fever Guaifenesin/Dextromethorphan 10 ml 03/06/21 11:45 03/09/21 05:43 Guaifenesin Dm 200/20/10 Ml 10 Ml Syrup PO Not Given Q6H [facility] Insulin Glargine 30 unit 03/05/21 21:00 03/08/21 21:39 Insulin Glargine,Hum.Rec.Anlog 100 Unit/Ml 10 Ml Vial SUBCUT 30 unit BEDTIME [facility] Administration Insulin Human Lispro 0 unit 03/05/21 07:30 03/09/21 08:07 Insulin Lispro 100 Unit/Ml 3 Ml Vial SUBCUT 8 unit QIDACHS [facility] Administration Protocol Magnesium Oxide 400 mg 03/07/21 17:30 03/09/21 08:06 Magnesium Oxide 400 Mg Tablet PO 400 mg BIDPC [facility] Administration Medication 1 each 03/05/21 09:00 No Benzodiazepines MISCELLANE DAILY [facility] Multivitamins 1 tab 03/05/21 09:00 03/09/21 08:05 B-Complex With Vitamin C Tablet PO 1 tab DAILY [facility] Administration Omeprazole 40 mg 05/01/21 06:30 03/09/21 05:42 Omeprazole 20 Mg/10 Ml Susp.Recon PO 40 mg DAILY@0630 [facility] Administration Phenobarbital 30 mg 03/08/21 09:00 03/09/21 08:06 Phenobarbital 30 Mg Tablet PO 03/09/21 21:01 30 mg BID GOSIA Administration Protocol Phenobarbital 30 mg 03/10/21 09:00 Phenobarbital 30 Mg Tablet PO 03/11/21 09:01 DAILY [facility] Protocol Potassium Phos/Sodium Phos 1 packet 03/07/21 17:00 03/09/21 08:03 Sodium,Potassium Phosphates Powd.Pack PO 1 packet QID [facility] Administration Senna 17.2 mg 03/05/21 02:23 Sennosides 8.6 Mg Tablet PO BEDTIME PRN Constipation Sodium Chloride 3 ml 03/05/21 08:00 03/09/21 08:08 0.9 % Sodium Chloride Flush 3 Ml Syringe IVFLUSH Not Given QSHIFT [facility] Sucralfate 1 gm 03/05/21 16:30 03/09/21 08:05 Sucralfate 1 Gm Tablet PO 1 gm BIDAC [facility] Administration Trazodone HCl 50 mg 03/07/21 19:54 03/08/21 21:40 Trazodone Hcl 50 Mg Tablet PO 50 mg BEDTIME PRN Administration Insomnia Labs CBC & Chem 7: 03/06/21 05:36 03/07/21 05:46 Microbiology Microbiology Results: Microbiology 03/06/21 20:07 Blood - Venous Blood Culture - Preliminary No growth after 48 hours. 03/06/21 20:08 Blood - Venous Blood Culture - Preliminary No growth after 48 hours. 03/04/21 14:28 Blood - Venous Blood Culture - Final Corynebacterium species 03/04/21 14:28 Blood - Venous Blood Culture - Preliminary No growth after 48 hours. Assessment and Plan (1) Alcohol abuse with withdrawal: Status: Acute (2) Fever: Status: Acute (3) Hypokalemia: Status: Acute (4) KEYSHAWN (acute kidney injury): Status: Acute (5) Esophageal stricture: Status: Acute (6) Hematemesis/vomiting blood: Status: Acute (7) Hypophosphatemia: Status: Acute (8) Hypomagnesemia: Status: Acute Assessment and Plan: 56-year-old male with a past medical history of hypertension, hyperlipidemia, diabetes, history of esophageal strictures status post dilation, alcohol abuse, alcoholic gastritis presented to the hospital with a chief complaint of nausea vomiting and abdominal discomfort. Also reported blood in the vomitus. Noted to be in DKA/Keyshawn Fever patient had 1 episode of fever 101 03/06, no recurrence since, all workup including urinalysis and chest x-ray unremarkable , follow clinical course hold antibiotics case discussed with ID DKA: Resolved, was due to noncompliance since patient was drinking alcohol heavily and not taking his regular medication Noted to have elevated blood sugars, continue diabetic diet, Lantus 30 units and adjust insulin sliding scale. Leukocytosis likely due to DKA trending down. KEYSHAWN: Multifactorial due to poor by mouth intake, and DKA patient treated with IV fluids renal function improved to baseline. Hypomagnesemia resolved Hypophosphatemia continue Neutra-Phos, repeat level at a.m.. Cough chest x-ray showed no acute infiltrate, continue cough syrup Hypokalemia potassium improved to 3.8, status post potassium replacement . Gram-positive kristen bacteremia Corynebacterium species unlikely pathogen Lactic Acidosis: Resolved with IV hydration Nausea vomiting/Hematemesis/odynophagia no further episodes of hematemesis, hematocrit remains stable patient tolerating diet, recommend compliance with PPI and strong recommendation to abstain from alcohol, patient has history of esophageal stricture, and since having odynophagia case discussed with Dr. Reyes he will have upper endoscopy and possible dilatation March 10 Will keep patient NPO after midnight March 09, need IV access to be placed at a.m. Alcohol abuse: Continue phenobarb protocol, tachycardia resolved, no tremors, strongly advised to abstain from alcohol, follow care team recommendation. DVT prophylaxis: SCD boots Code status: Full code
[2021-03-09] MEDS: guaiFENesin DM 200/20/10 ML 10 ML SYRUP PO ×2 (12:18→17:20)
[2021-03-09 12:45] LABS: Glucose, Whole Blood 221 mg/dL (60-115)
[2021-03-09 15:36] VITALS: BP 138/77; PULSE 92; RESP 18; TEMP 37.1; O2SAT 98
[2021-03-09 16:15] LABS: Glucose, Whole Blood 230 mg/dL (60-115)
[2021-03-09 19:05] VITALS: BP 130/68; PULSE 92; RESP 20; TEMP 37.1; O2SAT 100
[2021-03-09 21:09] LABS: Glucose, Whole Blood 332 mg/dL (60-115)
[2021-03-09] MEDS: Insulin Glargine,Hum.rec.anlog 100 UNIT/ML 10 ML VIAL 20 UNIT SUBCUT (22:14)
[2021-03-09] MEDS: traZODone HCL 50 MG TABLET PO (22:18)
[2021-03-09 23:28] VITALS: BP 111/61; PULSE 91; RESP 18; TEMP 36.6; O2SAT 98
[2021-03-10 03:54] VITALS: BP 129/73; PULSE 88; RESP 18; TEMP 36.8; O2SAT 100
[2021-03-10 07:20] LABS: Glucose, Whole Blood 210 mg/dL (60-115)
[2021-03-10 07:30] LABS: Anion Gap 13 (12-20); Blood Urea Nitrogen 16 mg/dL (9-16); Calcium 8.7 mg/dL (8.4-10.2); Carbon Dioxide 25 mmol/L (22-29); Chloride 97 mmol/L (96-108); Creatinine Clr Calc Pharmacy 85.4; Estimated Glomerular Filt Rate > 60; Glucose Random 224 mg/dL (60-115); Magnesium 1.6 mg/dL (1.6-2.6); Phosphorus 3.7 mg/dL (2.7-4.5); Potassium 4.8 mmol/L (3.3-5.1); Sodium 130 mmol/L (135-145)
[2021-03-10 07:42] VITALS: BP 137/72; PULSE 90; RESP 18; TEMP 37.4; O2SAT 99
[2021-03-10] MEDS: Insulin Lispro 100 UNIT/ML 3 ML VIAL SUBCUT (08:22)
--- NOTE | 2021-03-10 10:04 | MHC.RECOVRN ---
T/w briefly met with pt in 452 to discuss Vivitrol. Pt reports alcohol use, 2 pints daily x 1 week. Prior to that, pts last drink was approx 1 year ago. Pt reports success with Vivitrol in the past but is unsure if he would like to pursue it at this time due to general instability in life, including housing. Pt states I can't even take pills right now because of my stomach. Pt anxious regarding d/c and states last time my insurance wouldn't pay for my insulin. If I leave I won't have any insulin. Per pts RN, d/c unknown, pt currently waiting for upper endoscopy. Pt would like to wait to pursue naltrexone until after procedure and when more medically stable. Pt was given information regarding the [facility] as well as naltrexone and Vivitrol. Pt was also given t/w card if pt would like to discuss further.
[2021-03-10 11:42] LABS: Glucose, Whole Blood 77 mg/dL (60-115)
[2021-03-10 12:00] VITALS: BP 136/64; PULSE 102; RESP 18; TEMP 37; O2SAT 100
--- NOTE | 2021-03-10 15:20 | PM.EVENT ---
Event Note Date of Service: 03/10/21 Event Note: [employer] message from RN received that the patient had signed out AMA. Patient had refused endoscopy and the plan for was him to be discharged if he tolerated diet. However, it appears that after he ate lunch, he left. I was not able to explain to him the risks of doing so as he had already left before I saw him.
--- NOTE | 2021-03-10 15:23 | PM.DS ---
DS: Providers Provider Date of Service: 03/10/21 Date of admission: 03/05/21 02:24 Primary care physician: [facility] Consults: 03/05/21 02:40 Consult to Gastroenterology Routine Consulting Provider: Linda Wagoner Reason for consultation: hs Esophageal stricture;hemoptysis; hx ETOH abuse Consult to Nephrology Routine Consulting Provider: Dung Mullen Reason for consultation: Ronn 03/06/21 03:05 Consult to Infectious Diseases Routine Consulting Provider: Angelica Mcmahon Reason for consultation: bacteremia 03/07/21 15:35 Consult to Care Team Routine Comment: Reason for consultation: alcohol 03/08/21 13:30 Consult to Care Team Routine Comment: Reason for consultation: alcohol DS: Diagnosis Discharge Diagnosis (1) DKA (diabetic ketoacidoses): Status: Acute (2) Alcohol abuse with withdrawal: Status: Acute (3) Hypokalemia: Status: Acute (4) RONN (acute kidney injury): Status: Acute (5) Esophageal stricture: Status: Acute (6) Hypophosphatemia: Status: Acute (7) Hypomagnesemia: Status: Acute (8) Lactic acidosis: Status: Acute DS: Medications Discharge Medications Home Medications: Home Medications Medication Instructions Recorded Confirmed bupropion HCl 100 mg PO DAILY 11/13/20 03/05/21 folic acid 1 mg PO DAILY 11/13/20 03/05/21 lisinopril 20 mg PO DAILY 11/13/20 03/05/21 multivitamin 1 tab PO DAILY 11/13/20 03/05/21 thiamine HCl (vitamin B1) 100 mg PO DAILY 11/13/20 03/05/21 trazodone 50 mg PO BEDTIME 11/13/20 03/05/21 omeprazole 40 mg PO BID 12/11/20 03/05/21 insulin aspart U-100 100 unit/mL See Rx Instructions .ROUTE .COMPLEX 02/13/21 03/05/21 (3 mL) subcutaneous pen insulin detemir U-100 100 unit/mL 35 unit SUBCUT BEDTIME ml 02/13/21 03/05/21 (3 mL) subcutaneous pen Previous Rx's Medication Instructions Recorded OneTouch Ultra Blue Test Strip #100 ea 11/16/20 blood-glucose meter [OneTouch #1 ea 11/16/20 Ultra2 Meter] lancets [OneTouch Delica Lancets] #100 ea 11/16/20 lancing device with lancets #1 ea 11/16/20 [OneTouch Delica Plus Lanc Dev] magnesium oxide 400 mg PO BIDPC #60 tab 11/16/20 metoprolol tartrate 25 mg PO BID #60 tab 11/16/20 naltrexone 50 mg PO DAILY #30 tab 11/16/20 pen needle, diabetic #100 ea 11/16/20 famotidine 40 mg/5 mL (8 mg/mL) 40 mg PO BEDTIME 30 Days #150 ml 01/09/21 oral suspension DS: Summary Hospital Course Hospital Course: Patient was admitted for a multitude of issues including DKA, Ronn, alcohol abuse with dependence and withdrawal. He was treated for each of the above conditions. His hospital course was complicated by dysphagia/odynophagia with a known history of severe erosive esophagitis and esophageal stricture. The plan was for him to go under endoscopic evaluation and possible dilatation, however he refused this. He was subsequently started on a diet which he tolerated and the plan was to discharge him later in the day but prior to this he signed out against medical advice. Time Spent with Patient Time attestation: Total time spent providing and/or coordinating discharge services: Discharge coordination time: Greater than 30 minutes Physical Exam Vital Signs: Vital Signs: Last Vital Signs Temp 98.6 F 03/10/21 12:00 Pulse 102 H 03/10/21 12:00 Resp 18 03/10/21 12:00 BP 136/64 03/10/21 12:00 Pulse Ox 100 03/10/21 12:00 Body Mass Index 20.0 Const: Other: left AMA DS: Data Data Completed and Pending Completed studies during hospitalization [Text1]: Procedures Detoxification Services for Substance Abuse Treatment (11/13/20) Labs on day of discharge: Laboratory Results - last 24 hr 03/09/21 03/09/21 03/10/21 16:09 21:03 06:33 Sodium 130 L Potassium 4.8 D Chloride 97 Carbon Dioxide 25 Anion Gap 13 BUN 16 Creatinine 0.84 Estim Creat Clear Calc 85.4 Estimated GFR > 60 POC Glucose 230 H 332 H Random Glucose 224 H Calcium 8.7 D Phosphorus 3.7 Magnesium 1.6 03/10/21 03/10/21 07:14 11:38 Sodium Potassium Chloride Carbon Dioxide Anion Gap BUN Creatinine Estim Creat Clear Calc Estimated GFR POC Glucose 210 H 77 Random Glucose Calcium Phosphorus Magnesium Preliminary micro results at discharge 03/06/21 20:07 Blood Culture - Preliminary Blood - Venous No growth after 48 hours. 03/06/21 20:08 Blood Culture - Preliminary Blood - Venous No growth after 48 hours. Discharge Plan Discharge Patient Disposition: Left Against Medical Advice Discharge Diagnosis: LEFT AMA Referrals: [facility] [Primary Care Provider] - 1 Week Discharge Medications: No Action famotidine 40 mg/5 mL (8 mg/mL) suspension 40 mg PO BEDTIME 30 Days Qty: 150 RF: 4 omeprazole 40 mg Capsule,Delayed Release(Dr/Ec) 40 mg PO BID RF: 0 multivitamin Tablet 1 tab PO DAILY RF: 0 trazodone 50 mg Tablet 50 mg PO BEDTIME RF: 0 thiamine HCl (vitamin B1) 100 mg Tablet 100 mg PO DAILY RF: 0 bupropion HCl 100 mg Tablet Sustained-Release 12 Hr 100 mg PO DAILY RF: 0 folic acid 1 mg Tablet 1 mg PO DAILY RF: 0 lisinopril 20 mg Tablet 20 mg PO DAILY RF: 0 magnesium oxide 400 mg (241.3 mg magnesium) Tablet 400 mg PO BIDPC Qty: 60 RF: 0 (DME) blood-glucose meter [OneTouch Ultra2 Meter] Kit See Rx Instructions .ROUTE .MEDSUPPLY Qty: 1 RF: 0 (DME) OneTouch Ultra Blue Test Strip Strip See Rx Instructions .ROUTE .MEDSUPPLY Qty: 100 RF: 0 (DME) lancing device with lancets [OneTouch Delica Plus Lanc Dev] Kit See Rx Instructions .ROUTE .MEDSUPPLY Qty: 1 RF: 0 (DME) lancets [OneTouch Delica Lancets] 33 gauge misc See Rx Instructions .ROUTE .MEDSUPPLY Qty: 100 RF: 0 (DME) pen needle, diabetic 32 gauge x 5/32 needle See Rx Instructions .ROUTE .MEDSUPPLY Qty: 100 RF: 0 naltrexone 50 mg tablet 50 mg PO DAILY Qty: 30 RF: 0 metoprolol tartrate 25 mg tablet 25 mg PO BID Qty: 60 RF: 0 insulin aspart U-100 [Novolog Flexpen U-100 Insulin] 100 unit/mL (3 mL) insulin pen See Rx Instructions .ROUTE .COMPLEX RF: 0 Levemir FlexTouch U-100 Insuln 100 unit/mL (3 mL) insulin pen 35 unit subcut BEDTIME RF: 0 Discharge Orders: Discharge Order (Routine); Ordered 03/10/21 Ordered By: Jez Munoz Care Plan Goals: Left AMA Health Concerns: Left AMA Plan of Treatment: Left AMA Assessment: Left AMA Discharge Date/Time: 03/10/21 12:12
== END 2021-03-10 12:12 | disposition left against medical advice (07) | DRG 420 ==
LOC: HO.ED 21:31 → HO.EDOVER 03-05 02:32 → HO.IMC 03-05 19:24
PROVIDERS: Hospitalist; Internal Medicine Nephrology; Physician Assistant; Student in an Organized Health Care Education/Training Program; Admitting Provider Hospitalist; Emergency Provider Internal Medicine; Visit Provider Family Medicine
DX: E10.10 Type 1 diabetes mellitus with ketoacidosis without coma (principal); N17.9 Acute kidney failure, unspecified; K92.0 Hematemesis; R04.2 Hemoptysis; E83.42 Hypomagnesemia; F10.239 Alcohol dependence with withdrawal, unspecified; D72.829 Elevated white blood cell count, unspecified; E87.6 Hypokalemia; Z20.822 Contact with and (suspected) exposure to COVID-19; Z79.4 Long term (current) use of insulin; Z79.899 Other long term (current) drug therapy
CPT/HCPCS: 36415; 71045; 71046; 74021; 80048; 80053; 80076; 80320; 81001; 82009; 82248; 82272; 82947; 83605; 83690; 83735; 84100; 85025; 85027; 85610; 85730; 86850; 86900; 86901; 87040; 87205; 87635; 93005; 96372; 96374; 96375; 99285; 99291; J2060; J2270; J2405; J2543; J2560; J2765

== ENCOUNTER 2021-03-12 17:09 | Emergency (ER) | payer MEDICAID, SELFPAY ==
[2021-03-12 17:22] VITALS: BP 134/67; BP 146/70; PULSE 110; RESP 18; TEMP 36.6; O2SAT 99; BMI 23.0
--- NOTE | 2021-03-12 18:02 | MHC.RECOVSUP ---
? Reason for consult Support o Current location: ED22H o Identified substance use concern: Alcohol - Support ? Intervention: o Harm reduction discussion ? Plan: o Patient awaiting crisis evaluation o Patient to follow up with [facility] after discharge ? Additional information Patient stated that he going to kill himself..: and that he know how he going to do it.. He explained to me that he is Diabetes and that when he can he going to fill syringe to the max and go to sleep and never wake up.
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
[2021-03-12] MEDS: 0.9 % Sodium Chloride 1,000 ML 999 ML IV (19:36)
[2021-03-12 19:37] LABS: MANUAL DIFF FLAG NO
[2021-03-12 19:38] VITALS: BP 118/58; PULSE 109; RESP 18; TEMP 36.8; O2SAT 98
[2021-03-12 19:40] LABS: Basophils Absolute Auto 0.1 X10*3/uL (0.0-0.2); Basophils Percent Auto 0.7 % (0-2); Eosinophils Absolute Auto 0.2 X10*3/uL (0.0-0.4); Eosinophils Percent Auto 2.5 % (0-4); Hematocrit 34.3 % (42-52); Imm Gran Abs Auto 0.21 X10*3/uL (0.00-0.03); Lymphocytes Absolute Auto 1.9 X10*3/uL (1.2-4.9); Lymphocytes Percent Auto 27.2 % (20-40); Mean Corpuscular HGB Conc 32.1 g/dl (31.0-36.0); Mean Corpuscular Hemoglobin 24.7 pg (27.0-33.0); Mean Corpuscular Volume 76.9 fL (80-98); Mean Platelet Volume 8.7 fL (9.4-12.4); Monocytes Percent Auto 14.1 % (2-11); Neutrophils Absolute Auto 3.7 X10*3/uL (2.0-8.3); Neutrophils Percent Auto 52.5 % (45-73); Platelet Count 522 X10*3/uL (160-400); Red Blood Count 4.46 X10*6/uL (4.60-5.80); Red Cell Distribution Width 16.5 % (11.0-16.0); White Blood Count 7.1 X10*3/uL (4.8-10.8)
--- NOTE | 2021-03-12 19:56 | MHC.CARE ---
Card Scraper, Gilberto, communicates to CARE Team that pt endorsed SI to him with intent and plan to OD on insulin. Pt said goodbye to Gilberto/tied up loose ends. Pt was brought to the ED on a sect 12 issued by [facility]. Pt should remain on sect 12 until he is medically cleared and assessed by crisis team. IPLOC should be seriously considered.
[2021-03-12 20:01] LABS: Ethanol 303 mg/dL
[2021-03-12 20:07] LABS: Alanine Aminotransferase 31 U/L (0-40); Albumin Level 3.9 g/dL (3.5-5.0); Alkaline Phosphatase 118 U/L (39-117); Anion Gap 15 (12-20); Aspartate Amino Transferase 25 U/L (5-37); Bilirubin Total 0.3 mg/dL (0.0-1.0); Blood Urea Nitrogen 22 mg/dL (9-16); Calcium 9.2 mg/dL (8.4-10.2); Carbon Dioxide 28 mmol/L (22-29); Chloride 99 mmol/L (96-108); Creatinine Clr Calc Pharmacy 53.5; Estimated Glomerular Filt Rate > 60; Potassium 5.1 mmol/L (3.3-5.1); Sodium 137 mmol/L (135-145); Total Protein 8.1 g/dL (6.5-8.0)
--- NOTE | 2021-03-12 21:58 | PC.NURSE ---
PT UPRIGHT IN BED EATING W/ DIFFICULTY OR COMPLICATION.
[2021-03-12 22:19] LABS: Glucose, Whole Blood 324 mg/dL (60-115)
[2021-03-12] MEDS: Thiamine HCL 100 MG TABLET PO (23:17)
[2021-03-12] MEDS: Multivitamin TABLET 1 TAB PO (23:17)
[2021-03-12] MEDS: Folic Acid 1 MG TABLET PO (23:17)
[2021-03-12 23:21] LABS: Glucose Random 448 mg/dL (60-115)
[2021-03-13 01:24] LABS: Glucose, Whole Blood 487 mg/dL (60-115)
[2021-03-13] MEDS: Insulin Regular, Human 100 UNIT/ML 3 ML VIAL 15 UNIT SUBCUT (01:36)
--- NOTE | 2021-03-13 01:44 | PC.NURSE ---
Patient was transferred from main ED, per report patient poc is high, per MAR patient did not receive insulin coverage, POC checked was was 487 provider notified/ordered insulin 15 units administered as ordered. CAROLYN called and spoke with Angel, able to get hold of clinician Anna, she agreed to come see the patient, will continue to monitor.
[2021-03-13 01:47] LABS: COVID-19 Test Negative (Negative); IDNOW Serial# 9DD0AD1C
[2021-03-13 03:14] LABS: Amphetamine Screen Urine Not Detected (Not Detect); Barbiturates, Urine POSITIVE (Not Detect); Benzodiazepines Screen Urine Not Detected (Not Detect); Cannabinoid Screen Urine Not Detected (Not Detect); Cocaine Screen Urine Not Detected (Not Detect); Opiate Screen Urine Not Detected (Not Detect); Phencyclidine Screen Urine Not Detected (Not Detect)
[2021-03-13] MEDS: chlordiazePOXIDE HCl 5 MG CAPSULE 10 MG PO (03:38)
[2021-03-13 03:40] LABS: Glucose, Whole Blood 225 mg/dL (60-115)
--- NOTE | 2021-03-13 04:08 | PC.NURSE ---
Patient was assessed by BHN, disposition is discharge in the morning, provider and patient aware per BHN, Librium 10 mg ordered/administered as ordered, F/U POC checked at 0336 was 225, provider notified, will continue to monitor.
[2021-03-13 06:36] LABS: Glucose, Whole Blood 145 mg/dL (60-115)
== END 2021-03-13 06:46 | disposition home or self-care (01) ==
PROVIDERS: Internal Medicine; Nurse Practitioner Family; Emergency Provider Student in an Organized Health Care Education/Training Program
DX: R45.851 Suicidal ideations (principal); F10.220 Alcohol dependence with intoxication, uncomplicated; Y90.8 Blood alcohol level of 240 mg/100 ml or more; E11.65 Type 2 diabetes mellitus with hyperglycemia; Z20.822 Contact with and (suspected) exposure to COVID-19; I10 Essential (primary) hypertension; E78.5 Hyperlipidemia, unspecified; Z79.02 Long term (current) use of antithrombotics/antiplatelets; Z79.4 Long term (current) use of insulin
CPT/HCPCS: 36415; 80053; 80307; 80320; 82947; 83735; 85025; 87635; 96361; 96374; 99285

== ENCOUNTER 2021-03-13 14:30 | Emergency (ER) | payer MEDICAID, SELFPAY ==
[2021-03-13 14:47] VITALS: BP 138/65; PULSE 98; RESP 18; TEMP 36.4; O2SAT 99; BMI 25.0
--- NOTE | 2021-03-13 15:40 | ED_ITS ---
HPI - General Adult General Chief complaint: ETOH/Substance Use Stated complaint: ETOH,HYPERGLYCEMIA POC 456 Time Seen by Provider: 03/13/21 14:38 Source: patient and EMS Mode of arrival: EMS Limitations: other (Poor historian and intoxicated) History of Present Illness HPI narrative: 56-year-old male with multiple medical issues including diabetes type 2 on insulin, hypertension, hyperlipidemia, SVT who is alcohol dependent recently admitted on 03/05/2021 and discharged on 03/10/2021 for DKA; alcohol abuse with withdrawal; hypokalemia; a KI; esophageal stricture; hypophosphatemia and lactose acidosis presenting to the ED via EMS after he was found outside of package store with a blood glucose level 469 by EMS. He told EMS that he did not take his insulin today therefore EMS brought him here for further evaluation and treatment. On arrival patient reports that he just wants to drive to [place] that he is fine. He also admits to drinking large amounts of alcohol/Vodka prior to arrival. Denies any drug uses. Reports that he lives out of his car and that he is homeless. Denies any SI/HI/auditory or visual hallucinations or thoughts of self injury. Related Data Home Medications Medication Instructions Recorded Confirmed bupropion HCl 100 mg PO DAILY 11/13/20 03/13/21 folic acid 1 mg PO DAILY 11/13/20 03/13/21 lisinopril 20 mg PO DAILY 11/13/20 03/13/21 multivitamin 1 tab PO DAILY 11/13/20 03/13/21 thiamine HCl (vitamin B1) 100 mg PO DAILY 11/13/20 03/13/21 trazodone 50 mg PO BEDTIME 11/13/20 03/13/21 omeprazole 40 mg PO BID 12/11/20 03/13/21 insulin aspart U-100 100 unit/mL See Rx Instructions .ROUTE .COMPLEX 02/13/21 03/13/21 (3 mL) subcutaneous pen insulin detemir U-100 100 unit/mL 35 unit SUBCUT BEDTIME ml 02/13/21 03/13/21 (3 mL) subcutaneous pen Previous Rx's Medication Instructions Recorded OneTouch Ultra Blue Test Strip #100 ea 11/16/20 blood-glucose meter [OneTouch #1 ea 11/16/20 Ultra2 Meter] lancets [OneTouch Delica Lancets] #100 ea 11/16/20 lancing device with lancets #1 ea 11/16/20 [OneTouch Delica Plus Lanc Dev] magnesium oxide 400 mg PO BIDPC #60 tab 11/16/20 metoprolol tartrate 25 mg PO BID #60 tab 11/16/20 naltrexone 50 mg PO DAILY #30 tab 11/16/20 pen needle, diabetic #100 ea 11/16/20 famotidine 40 mg/5 mL (8 mg/mL) 40 mg PO BEDTIME 30 Days #150 ml 01/09/21 oral suspension Allergies Allergy/AdvReac Type Severity Reaction Status Date / Time No Known Allergies Allergy Verified 02/14/21 10:01 Review of Systems Review of Systems: Constitutional : Positive Elevated glucose, No Fever, No Chills ENT/Mouth : No Ear Pain, No Nasal Congestion, No sore throat Eyes: No Eye Pain, No Swelling, No Redness Cardiovascular : No Chest Pain, No SOB Respiratory : No Cough, No Sputum, No Dyspnea Gastrointestinal : No ingestions, No Nausea, No Vomiting, No Diarrhea, No Hematochezia, No Melena Genitourinary : No Dysuria, No Urinary Frequency, No Hematuria Musculoskeletal : No Myalgias Skin : No Skin Lesions, No rash Neuro : No Weakness, No Numbness, No Paresthesias, No Dizziness, No Headache Psych : No Anxiety, No Depression, No SI/HI, No AVH, No thoughts of self injury Heme/Lymph: No Lymphadenopathy Endocrine : No Polyuria, No Polydipsia Yes all other systems are reviewed and are negative [facility] Past Medical History Attestation statement: The following information was validated with the patient. Medical History Acute alcoholic gastritis Alcohol use disorder, severe, dependence Alcoholism Depressed Diabetes Esophageal stricture Fever of unknown origin Gastritis GIB (gastrointestinal bleeding) Head injury HLD (hyperlipidemia) HTN (hypertension) Hypomagnesemia Hypophosphatemia Odynophagia On beta cher at home Pancreatitis Seizures Supraventricular tachycardia Type 2 diabetes mellitus Vitamin D deficiency Surgical History H/O colonoscopy History of esophagogastroduodenoscopy (EGD) Family History Family History Father Diabetes Social History Social History Household Members: Spouse and Other Household Members Other:: homeless at present Housing: Homeless Alcohol intake: current Alcohol intake frequency: does not drink Smoking Status: Never smoker Second Hand Smoke Exposure: No Advance Directives: Yes Advance Directives on File: Yes Advance Directives Date on File: 12/12/20 service: No Current occupational status: unemployed and disabled Physical Exam Vital Signs: Vital Signs: Last Vital Signs Temp 97.5 F 03/13/21 14:47 Pulse 98 03/13/21 14:47 Resp 18 03/13/21 14:47 BP 138/65 03/13/21 14:47 Pulse Ox 99 03/13/21 14:47 Body Mass Index 25.0 vital signs have been reviewed as normal and appeared to be correct. Blood pressure normal. Heart rate normal. Respiration rate normal. Temperature normal. Oxygen saturation normal. Appearance: Intoxicated with EtOH on odor of breath otherwise Alert. Oriented X3. No acute distress. Head: Normal external exam. Normocephalic. Atraumatic. No Hassan signs noted. No raccoon eyes noted Eyes: PERRLA. EOMI. Conjunctiva and sclera normal. Eyelids normal. ENT: EAC normal. TM's Normal. Pharynx normal. Uvula midline. Moist mucous membranes. No trismus noted. No drooling noted. No muffled voice noted. Neck: Normal inspection. Neck supple. FROM. No adenopathy. Thyroid Normal. No meningeal signs. No neck mass noted. CVS: Normal heart rate and rhythm. Heart sound normal. No murmurs noted. Pulses normal throughout. Respiratory: No respiratory distress. Painless inspiration. Breath sounds normal. No wheezes/rales/rhonchi noted. Chest nontender. No accessory muscle usage noted or decreased air movement noted. Abdomen: Soft and nontender. Bowel sounds normal in all 4 quadrants. No distention noted. No organomegaly noted. No visible injury noted. Back: No CVA tenderness. Full range of motion noted. Skin: Skin warm and dry. Normal skin color. Normal skin turgor. No rashes/lesions/lacerations noted. Extremities: No lower extremity edema. No calf tenderness is noted. Extremities exhibit normal range of motion. Extremities nontender. Neuro: Oriented X 3. No motor deficit. No sensory deficit. Reflexes normal. Psych: Appearance grossly normal, well-kept, mental status normal, speech and movement normal, speech slurred due to ETOH, normal affect. Is cooperative. Patient does not have a normal thought process does not have normal thought contact does not have good judgment or good insight. Course Course Course Narrative: 17pm - patient continued to deny any blood draws/POC checks or EKG. Will continue to attempt. Although due to patient's elevated glucose level will give 14 units of Humalog and 35 units of Lantus subQ and continue to attempt to check his blood and P OCs. Will continue to monitor and the patient is clinically sober. - Sign out to JUSTICE Mendoza at this time Medical Decision Making [facility] Narrative Medical decision making narrative: 15pm - 56-year-old male with a past medical history of diabetes type 2 on insulin non compliant, hypertension, hyperlipidemia, SVT who is alcohol dependent with multiple recent admissions presenting via EMS after he was found outside of package store with elevated glucose of 469. - on exam patient is alert and oriented x3 although intoxicated with EtOH on odor. No acute distress or signs of trauma. Vital signs are stable within normal limits. No focal neuro deficits are noted. Lungs clear to auscultation. CV RRR. Abdomen is soft and nontender. - Plan: Labs, EKG, a L of IV fluids and re-evaluate. Discharge Plan Discharge Clinical Impression: Acute hyperglycemia Alcohol intoxication Qualifiers: Complication of substance-induced condition: uncomplicated Qualified Code(s): F10.920 - Alcohol use, unspecified with intoxication, uncomplicated Prescriptions: No Action famotidine 40 mg/5 mL (8 mg/mL) suspension 40 mg PO BEDTIME 30 Days Qty: 150 RF: 4 omeprazole 40 mg Capsule,Delayed Release(Dr/Ec) 40 mg PO BID RF: 0 multivitamin Tablet 1 tab PO DAILY RF: 0 trazodone 50 mg Tablet 50 mg PO BEDTIME RF: 0 thiamine HCl (vitamin B1) 100 mg Tablet 100 mg PO DAILY RF: 0 bupropion HCl 100 mg Tablet Sustained-Release 12 Hr 100 mg PO DAILY RF: 0 folic acid 1 mg Tablet 1 mg PO DAILY RF: 0 lisinopril 20 mg Tablet 20 mg PO DAILY RF: 0 magnesium oxide 400 mg (241.3 mg magnesium) Tablet 400 mg PO BIDPC Qty: 60 RF: 0 (DME) blood-glucose meter [OneTouch Ultra2 Meter] Kit See Rx Instructions .ROUTE .MEDSUPPLY Qty: 1 RF: 0 (DME) OneTouch Ultra Blue Test Strip Strip See Rx Instructions .ROUTE .MEDSUPPLY Qty: 100 RF: 0 (DME) lancing device with lancets [OneTouch Delica Plus Lanc Dev] Kit See Rx Instructions .ROUTE .MEDSUPPLY Qty: 1 RF: 0 (DME) lancets [OneTouch Delica Lancets] 33 gauge misc See Rx Instructions .ROUTE .MEDSUPPLY Qty: 100 RF: 0 (DME) pen needle, diabetic 32 gauge x 5/32 needle See Rx Instructions .ROUTE .MEDSUPPLY Qty: 100 RF: 0 naltrexone 50 mg tablet 50 mg PO DAILY Qty: 30 RF: 0 metoprolol tartrate 25 mg tablet 25 mg PO BID Qty: 60 RF: 0 insulin aspart U-100 [Novolog Flexpen U-100 Insulin] 100 unit/mL (3 mL) insulin pen See Rx Instructions .ROUTE .COMPLEX RF: 0 Levemir FlexTouch U-100 Insuln 100 unit/mL (3 mL) insulin pen 35 unit subcut BEDTIME RF: 0
--- NOTE | 2021-03-13 16:46 | PC.NURSE ---
Pt repeatedly refusing to have IV placed or Labs drawn. Also refusing EKG. Provider Lluvia Merritt. Will continue to monitor.
[2021-03-13] MEDS: Insulin Glargine,Hum.rec.anlog 100 UNIT/ML 10 ML VIAL 35 UNIT SUBCUT (17:41)
[2021-03-13] MEDS: Insulin Lispro 100 UNIT/ML 3 ML VIAL 14 UNIT SUBCUT (17:41)
[2021-03-13 18:28] LABS: Glucose, Whole Blood 374 mg/dL (60-115)
[2021-03-13 19:53] LABS: Glucose, Whole Blood 349 mg/dL (60-115)
== END 2021-03-13 19:58 | disposition home or self-care (01) ==
PROVIDERS: Emergency Provider Emergency Medicine
DX: E11.65 Type 2 diabetes mellitus with hyperglycemia (principal); F10.220 Alcohol dependence with intoxication, uncomplicated; Y90.9 Presence of alcohol in blood, level not specified; I10 Essential (primary) hypertension; E78.5 Hyperlipidemia, unspecified; Z79.4 Long term (current) use of insulin; Z91.14 Patient's other noncompliance with medication regimen
CPT/HCPCS: 82947; 96360; 99283; 99284

== ENCOUNTER 2021-03-14 10:46 | Emergency (ER) | payer MEDICAID, SELFPAY ==
[2021-03-14 10:55] VITALS: BP 102/53; BP 128/64; PULSE 116; PULSE 132; RESP 16; TEMP 37.6; O2SAT 94; O2SAT 99; BMI 21.4
--- NOTE | 2021-03-14 10:56 | ED_ITS ---
HPI - Alcohol General Chief Complaint: ETOH/Substance Use Stated Complaint: ETOH Time Seen by Provider: 03/14/21 10:52 Source: patient and EMS Mode of arrival: EMS Limitations: other (ETOH intoxication) History of Present Illness MD complaint: alcohol intoxication Last drink: Hours (ago) Chronic alcohol use: Yes Previous visits for alcohol intoxication: Yes Recent trauma: No Associated symptoms: denies other symptoms Treatments prior to arrival: none Related Data Home Medications Medication Instructions Recorded Confirmed bupropion HCl 100 mg PO DAILY 11/13/20 03/13/21 folic acid 1 mg PO DAILY 11/13/20 03/13/21 lisinopril 20 mg PO DAILY 11/13/20 03/13/21 multivitamin 1 tab PO DAILY 11/13/20 03/13/21 thiamine HCl (vitamin B1) 100 mg PO DAILY 11/13/20 03/13/21 trazodone 50 mg PO BEDTIME 11/13/20 03/13/21 omeprazole 40 mg PO BID 12/11/20 03/13/21 insulin aspart U-100 100 unit/mL See Rx Instructions .ROUTE .COMPLEX 02/13/21 03/13/21 (3 mL) subcutaneous pen insulin detemir U-100 100 unit/mL 35 unit SUBCUT BEDTIME ml 02/13/21 03/13/21 (3 mL) subcutaneous pen Previous Rx's Medication Instructions Recorded Visionary PharmaceuticalsTouch Ultra Blue Test Strip #100 ea 11/16/20 blood-glucose meter [OneTouch #1 ea 11/16/20 Ultra2 Meter] lancets [OneTouch Delica Lancets] #100 ea 11/16/20 lancing device with lancets #1 ea 11/16/20 [OneTouch Delica Plus Lanc Dev] magnesium oxide 400 mg PO BIDPC #60 tab 11/16/20 metoprolol tartrate 25 mg PO BID #60 tab 11/16/20 naltrexone 50 mg PO DAILY #30 tab 11/16/20 pen needle, diabetic #100 ea 11/16/20 famotidine 40 mg/5 mL (8 mg/mL) 40 mg PO BEDTIME 30 Days #150 ml 01/09/21 oral suspension Allergies Allergy/AdvReac Type Severity Reaction Status Date / Time No Known Allergies Allergy Verified 02/14/21 10:01 Review of Systems Review of Systems: ROS unable to be obtained due to ETOH use and he states he is fine and doesn't want to answer questions PMFSH Past Medical History Attestation statement: The following information was validated with the patient. Medical History Acute alcoholic gastritis Alcohol use disorder, severe, dependence Alcoholism Depressed Diabetes Esophageal stricture Fever of unknown origin Gastritis GIB (gastrointestinal bleeding) Head injury HLD (hyperlipidemia) HTN (hypertension) Hypomagnesemia Hypophosphatemia Odynophagia On beta cher at home Pancreatitis Seizures Supraventricular tachycardia Type 2 diabetes mellitus Vitamin D deficiency Surgical History H/O colonoscopy History of esophagogastroduodenoscopy (EGD) Family History Family History Father Diabetes Social History Social History Household Members: Spouse and Other Household Members Other:: homeless at present Housing: Homeless Alcohol intake: current Alcohol intake frequency: 3 or more drinks per day Smoking Status: Never smoker Second Hand Smoke Exposure: No Use of substances other than those prescribed or required for medical reasons: Unknown Advance Directives: Yes Advance Directives on File: Yes Advance Directives Date on File: 12/12/20 service: No Current occupational status: unemployed and disabled Physical Exam Vital Signs: Vital Signs: Last Vital Signs Temp 98.2 F 03/14/21 13:11 Pulse 112 H 03/14/21 13:11 Resp 16 03/14/21 13:11 BP 124/71 03/14/21 13:11 Pulse Ox 98 03/14/21 13:11 Body Mass Index 21.4 Appearance: slighty somnolent but sleeping and easily woken. Oriented X3. No acute distress. ETOH odor Eyes: Pupils equal, round and reactive to light. Atraumatic ENT: Pharynx normal. Neck: Normal inspection. Neck supple. CVS: tachycardic heart rate and rhythm. Pulses normal. Respiratory: No respiratory distress. Breath sounds normal. Abdomen: Soft and nontender. Skin: Skin warm and dry. Normal skin color. Normal skin turgor. Extremities: No lower extremity edema. No calf ttp Neuro: Oriented X 3. No motor deficit. No sensory deficit. Course Course Course Narrative: refused labs, steady gait alert and oriented x 3, refuses to stay MDM - Alcohol MDM Narrative Medical decision making narrative: 56 yo male with chronic ETOH abuse here with no SI, refusing labs, he is decompensating from ETOH, has steady gait, wants to sleep but then wants to leave, no signs of trauma, BS stable will not allow us to stick him for labs, at this time will observe, CARE team aware about possible section 35 though he won't let us get ETOH level Lab Data Labs: Lab Results 03/14/21 03/14/21 Range/Units 10:55 11:03 POC Glucose 261 H (60-115) mg/dL COVID-19 ([facility]) Negative (Negative) COVID-19 Clin Com See Note Discharge Plan Discharge Clinical Impression: Alcoholic intoxication Patient Disposition: Home, Self-Care Instructions: Abuse of Alcohol (ED) Additional Instructions: return to ED for any worsening symptoms or concerns Prescriptions: No Action famotidine 40 mg/5 mL (8 mg/mL) suspension 40 mg PO BEDTIME 30 Days Qty: 150 RF: 4 omeprazole 40 mg Capsule,Delayed Release(Dr/Ec) 40 mg PO BID RF: 0 multivitamin Tablet 1 tab PO DAILY RF: 0 trazodone 50 mg Tablet 50 mg PO BEDTIME RF: 0 thiamine HCl (vitamin B1) 100 mg Tablet 100 mg PO DAILY RF: 0 bupropion HCl 100 mg Tablet Sustained-Release 12 Hr 100 mg PO DAILY RF: 0 folic acid 1 mg Tablet 1 mg PO DAILY RF: 0 lisinopril 20 mg Tablet 20 mg PO DAILY RF: 0 magnesium oxide 400 mg (241.3 mg magnesium) Tablet 400 mg PO BIDPC Qty: 60 RF: 0 (DME) blood-glucose meter [OneTouch Ultra2 Meter] Kit See Rx Instructions .ROUTE .MEDSUPPLY Qty: 1 RF: 0 (DME) OneTouch Ultra Blue Test Strip Strip See Rx Instructions .ROUTE .MEDSUPPLY Qty: 100 RF: 0 (DME) lancing device with lancets [OneTouch Delica Plus Lanc Dev] Kit See Rx Instructions .ROUTE .MEDSUPPLY Qty: 1 RF: 0 (DME) lancets [OneTouch Delica Lancets] 33 gauge misc See Rx Instructions .ROUTE .MEDSUPPLY Qty: 100 RF: 0 (DME) pen needle, diabetic 32 gauge x 5/32 needle See Rx Instructions .ROUTE .MEDSUPPLY Qty: 100 RF: 0 naltrexone 50 mg tablet 50 mg PO DAILY Qty: 30 RF: 0 metoprolol tartrate 25 mg tablet 25 mg PO BID Qty: 60 RF: 0 insulin aspart U-100 [Novolog Flexpen U-100 Insulin] 100 unit/mL (3 mL) insulin pen See Rx Instructions .ROUTE .COMPLEX RF: 0 Levemir FlexTouch U-100 Insuln 100 unit/mL (3 mL) insulin pen 35 unit subcut BEDTIME RF: 0 Discharge Date/Time: 03/14/21 14:00
[2021-03-14 10:58] LABS: Glucose, Whole Blood 261 mg/dL (60-115)
--- NOTE | 2021-03-14 11:28 | PC.NURSE ---
Several staff members attempting to draw labs and obtain IV access, pt adamantly refusing at this time. I want to go home , pt ambulates with steady gait. Dr. Polanco aware
[2021-03-14 11:37] LABS: COVID-19 Test Negative (Negative); IDNOW Serial# 9DD0AD1C
--- NOTE | 2021-03-14 12:02 | PC.NURSE ---
Pt continues to refuse IV, labs, medications.
[2021-03-14 13:11] VITALS: BP 124/71; PULSE 112; RESP 16; TEMP 36.8; O2SAT 98
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
[2021-03-17 11:17] LABS: Glucose, Whole Blood > 600 mg/dL (60-115)
== END 2021-03-14 14:00 | disposition home or self-care (01) ==
PROVIDERS: Emergency Provider Emergency Medicine
DX: F10.129 Alcohol abuse with intoxication, unspecified (principal); Y90.9 Presence of alcohol in blood, level not specified; Z20.822 Contact with and (suspected) exposure to COVID-19; Z79.899 Other long term (current) drug therapy; Z59.0 Homelessness; Z71.41 Alcohol abuse counseling and surveillance of alcoholic
CPT/HCPCS: 36415; 82947; 87635; 96361; 96365; 96375; 99285

== ENCOUNTER 2021-03-14 20:03 | Emergency (ER) | payer MEDICAID, SELFPAY ==
[2021-03-14 20:26] VITALS: BP 132/74; PULSE 84; RESP 20; TEMP 36.6; O2SAT 95; BMI 20.9
[2021-03-14 20:36] VITALS: BP 128/57; PULSE 106; RESP 19; TEMP 36.6; O2SAT 96
--- NOTE | 2021-03-14 21:06 | ED_ITS ---
HPI - Alcohol General Chief Complaint: ETOH/Substance Use Stated Complaint: etoh Time Seen by Provider: 03/14/21 21:02 Source: patient Mode of arrival: EMS History of Present Illness HPI narrative: 56-year-old male presents with alcohol intoxication and hypoglycemia. He denies any other acute complaints. Related Data Home Medications Medication Instructions Recorded Confirmed bupropion HCl 100 mg PO DAILY 11/13/20 03/13/21 folic acid 1 mg PO DAILY 11/13/20 03/13/21 lisinopril 20 mg PO DAILY 11/13/20 03/13/21 multivitamin 1 tab PO DAILY 11/13/20 03/13/21 thiamine HCl (vitamin B1) 100 mg PO DAILY 11/13/20 03/13/21 trazodone 50 mg PO BEDTIME 11/13/20 03/13/21 omeprazole 40 mg PO BID 12/11/20 03/13/21 insulin aspart U-100 100 unit/mL See Rx Instructions .ROUTE .COMPLEX 02/13/21 03/13/21 (3 mL) subcutaneous pen insulin detemir U-100 100 unit/mL 35 unit SUBCUT BEDTIME ml 02/13/21 03/13/21 (3 mL) subcutaneous pen Previous Rx's Medication Instructions Recorded OneTouch Ultra Blue Test Strip #100 ea 11/16/20 blood-glucose meter [OneTouch #1 ea 11/16/20 Ultra2 Meter] lancets [OneTouch Delica Lancets] #100 ea 11/16/20 lancing device with lancets #1 ea 11/16/20 [OneTouch Delica Plus Lanc Dev] magnesium oxide 400 mg PO BIDPC #60 tab 11/16/20 metoprolol tartrate 25 mg PO BID #60 tab 11/16/20 naltrexone 50 mg PO DAILY #30 tab 11/16/20 pen needle, diabetic #100 ea 11/16/20 famotidine 40 mg/5 mL (8 mg/mL) 40 mg PO BEDTIME 30 Days #150 ml 01/09/21 oral suspension Allergies Allergy/AdvReac Type Severity Reaction Status Date / Time No Known Allergies Allergy Verified 02/14/21 10:01 Review of Systems Review of Systems: Pertinent positives and negatives as stated in HPI and 10 point review of systems is otherwise negative. [facility] Past Medical History Source: nursing notes reviewed Medical History Acute alcoholic gastritis Alcohol use disorder, severe, dependence Alcoholism Depressed Diabetes Esophageal stricture Fever of unknown origin Gastritis GIB (gastrointestinal bleeding) Head injury HLD (hyperlipidemia) HTN (hypertension) Hypomagnesemia Hypophosphatemia Odynophagia On beta cher at home Pancreatitis Seizures Supraventricular tachycardia Type 2 diabetes mellitus Vitamin D deficiency Surgical History H/O colonoscopy History of esophagogastroduodenoscopy (EGD) Family History Family History Father Diabetes Social History Social History Household Members: Spouse and Other Household Members Other:: homeless at present Housing: Homeless Alcohol intake: current Alcohol intake frequency: 3 or more drinks per day Smoking Status: Never smoker Second Hand Smoke Exposure: No Advance Directives: Yes Advance Directives on File: Yes Advance Directives Date on File: 12/12/20 service: No Current occupational status: unemployed and disabled Physical Exam Vital Signs: Vital Signs: Last Vital Signs Temp 98.0 F 03/15/21 05:07 Pulse 117 H 03/15/21 05:07 Resp 19 03/15/21 05:07 BP 143/76 H 03/15/21 05:07 Pulse Ox 98 03/15/21 05:07 Body Mass Index 20.9 VITAL SIGNS: Reviewed. GENERAL: Well developed, well nourished, in no acute distress. HEAD: Normocephalic/atraumatic EYES: PERRLA, EOMI EARS: Ext canals without abnormality NOSE: Nares patent bilateral OROPHARYNX: no oral lesions noted, posterior pharynx clear NECK: Supple, no adenopathy LUNGS: Normal breath sounds. No adventitious sounds or accessory muscle use. SpO2<99> CARDIOVASCULAR: Regular rate and rhythm without noted murmurs, no JVD or lower extremity edema. ABDOMEN: Soft, non-tender, non-distended with bowel sounds. NEUROLOGIC: Drowsy and oriented x 3. Strength and sensation to light touch were grossly intact x 4. Course Course Course Narrative: This is a 56-year-old male well-known to the emergency department. Will evaluate for any evidence of DKA or HHS and otherwise will observe until sober. Review of all investigations shows the patient is hyperglycemic without evidence of DKA or HHS. Patient received 3 L of IV fluids as well as subcutaneous insulin gradual resolution of his hyperglycemia. There is noted hyperkalemia without EKG changes or chest pain. Patient is now tolerating p.o. and is clinically sober for discharge. He denies any suicidal homicidal ideation. MDM - Alcohol Lab Data Result diagrams: 03/14/21 21:14 03/14/21 21:14 Labs: Lab Results 03/14/21 03/14/21 03/14/21 Range/Units 21:14 21:14 21:14 WBC 5.4 (4.8-10.8) X10*3/uL RBC 4.54 L (4.60-5.80) X10*6/uL Hgb 11.1 L (14.0-18.0) g/dl Hct 35.2 L (42-52) % MCV 77.5 L (80-98) fL MCH 24.4 L (27.0-33.0) pg MCHC 31.5 (31.0-36.0) g/dl RDW 17.2 H (11.0-16.0) % Plt Count 614 H (160-400) X10*3/uL MPV 8.9 L (9.4-12.4) fL Immature Gran % (Auto) 1.7 H (0.0-0.4) % Neut % (Auto) 53.9 (45-73) % Lymph % (Auto) 30.3 (20-40) % Republic % (Auto) 10.8 (2-11) % Eos % (Auto) 2.6 (0-4) % Baso % (Auto) 0.7 (0-2) % Lymph # (Auto) 1.7 (1.2-4.9) X10*3/uL Republic # (Auto) 0.6 (0.1-1.2) X10*3/uL Eos # (Auto) 0.1 (0.0-0.4) X10*3/uL Baso # (Auto) 0.0 (0.0-0.2) X10*3/uL Abs Immat Gran (auto) 0.09 H (0.00-0.03) X10*3/uL Absolute Neuts (auto) 2.9 (2.0-8.3) X10*3/uL Absolute Nucleated RBC 0.000 (0.0-0.012) X10*3/uL Nucleated RBC % (auto) 0.0 (0.0-0.2) /100WBC VBG pH (7.32-7.43) VBG pCO2 mmHg VBG pO2 mmHg VBG HCO3 (22-26) mmol/L VBG O2 Saturation % VBG Base Excess mmol/L Sodium 137 (135-145) mmol/L Potassium 5.5 H (3.3-5.1) mmol/L Chloride 99 (96-108) mmol/L Carbon Dioxide 27 (22-29) mmol/L Anion Gap 17 (12-20) BUN 15 (9-16) mg/dL Creatinine 1.41 H (0.5-1.4) mg/dL Estim Creat Clear Calc 56.2 Estimated GFR 52 POC Glucose (60-115) mg/dL Random Glucose 658 H* (60-115) mg/dL Calcium 9.0 (8.4-10.2) mg/dL Total Bilirubin 0.3 (0.0-1.0) mg/dL Direct Bilirubin < 0.2 (0.0-0.5) mg/dL AST 34 (5-37) U/L ALT 27 (0-40) U/L Alkaline Phosphatase 128 H (39-117) U/L Total Protein 8.0 (6.5-8.0) g/dL Albumin 3.7 (3.5-5.0) g/dL Lipase < 4 L (8-78) U/L Ethyl Alcohol 421 H* mg/dL Acetone, Qual (Negative) 03/14/21 03/14/21 03/15/21 Range/Units 21:14 21:19 00:11 WBC (4.8-10.8) X10*3/uL RBC (4.60-5.80) X10*6/uL Hgb (14.0-18.0) g/dl Hct (42-52) % MCV (80-98) fL MCH (27.0-33.0) pg MCHC (31.0-36.0) g/dl RDW (11.0-16.0) % Plt Count (160-400) X10*3/uL MPV (9.4-12.4) fL Immature Gran % (Auto) (0.0-0.4) % Neut % (Auto) (45-73) % Lymph % (Auto) (20-40) % Republic % (Auto) (2-11) % Eos % (Auto) (0-4) % Baso % (Auto) (0-2) % Lymph # (Auto) (1.2-4.9) X10*3/uL Republic # (Auto) (0.1-1.2) X10*3/uL Eos # (Auto) (0.0-0.4) X10*3/uL Baso # (Auto) (0.0-0.2) X10*3/uL Abs Immat Gran (auto) (0.00-0.03) X10*3/uL Absolute Neuts (auto) (2.0-8.3) X10*3/uL Absolute Nucleated RBC (0.0-0.012) X10*3/uL Nucleated RBC % (auto) (0.0-0.2) /100WBC VBG pH 7.33 (7.32-7.43) VBG pCO2 55 mmHg VBG pO2 41 mmHg VBG HCO3 29 H (22-26) mmol/L VBG O2 Saturation 61.0 % VBG Base Excess 2.7 mmol/L Sodium (135-145) mmol/L Potassium (3.3-5.1) mmol/L Chloride (96-108) mmol/L Carbon Dioxide (22-29) mmol/L Anion Gap (12-20) BUN (9-16) mg/dL Creatinine (0.5-1.4) mg/dL Estim Creat Clear Calc Estimated GFR POC Glucose 408 H* (60-115) mg/dL Random Glucose (60-115) mg/dL Calcium (8.4-10.2) mg/dL Total Bilirubin (0.0-1.0) mg/dL Direct Bilirubin (0.0-0.5) mg/dL AST (5-37) U/L ALT (0-40) U/L Alkaline Phosphatase (39-117) U/L Total Protein (6.5-8.0) g/dL Albumin (3.5-5.0) g/dL Lipase (8-78) U/L Ethyl Alcohol mg/dL Acetone, Qual Negative (Negative) 03/15/21 03/15/21 Range/Units 01:34 04:02 WBC (4.8-10.8) X10*3/uL RBC (4.60-5.80) X10*6/uL Hgb (14.0-18.0) g/dl Hct (42-52) % MCV (80-98) fL MCH (27.0-33.0) pg MCHC (31.0-36.0) g/dl RDW (11.0-16.0) % Plt Count (160-400) X10*3/uL MPV (9.4-12.4) fL Immature Gran % (Auto) (0.0-0.4) % Neut % (Auto) (45-73) % Lymph % (Auto) (20-40) % Republic % (Auto) (2-11) % Eos % (Auto) (0-4) % Baso % (Auto) (0-2) % Lymph # (Auto) (1.2-4.9) X10*3/uL Republic # (Auto) (0.1-1.2) X10*3/uL Eos # (Auto) (0.0-0.4) X10*3/uL Baso # (Auto) (0.0-0.2) X10*3/uL Abs Immat Gran (auto) (0.00-0.03) X10*3/uL Absolute Neuts (auto) (2.0-8.3) X10*3/uL Absolute Nucleated RBC (0.0-0.012) X10*3/uL Nucleated RBC % (auto) (0.0-0.2) /100WBC VBG pH (7.32-7.43) VBG pCO2 mmHg VBG pO2 mmHg VBG HCO3 (22-26) mmol/L VBG O2 Saturation % VBG Base Excess mmol/L Sodium (135-145) mmol/L Potassium (3.3-5.1) mmol/L Chloride (96-108) mmol/L Carbon Dioxide (22-29) mmol/L Anion Gap (12-20) BUN (9-16) mg/dL Creatinine (0.5-1.4) mg/dL Estim Creat Clear Calc Estimated GFR POC Glucose 389 H* 329 H (60-115) mg/dL Random Glucose (60-115) mg/dL Calcium (8.4-10.2) mg/dL Total Bilirubin (0.0-1.0) mg/dL Direct Bilirubin (0.0-0.5) mg/dL AST (5-37) U/L ALT (0-40) U/L Alkaline Phosphatase (39-117) U/L Total Protein (6.5-8.0) g/dL Albumin (3.5-5.0) g/dL Lipase (8-78) U/L Ethyl Alcohol mg/dL Acetone, Qual (Negative) Discharge Plan Discharge Clinical Impression: Hyperglycemia, Alcohol intoxication Patient Disposition: Home, Self-Care Instructions: Diabetes and Nutrition (ED), Managing Diabetes During Sick Days (ED), Alcohol Intoxication (ED) Additional Instructions: Return the emergency department for any acute worsening of her symptoms. Prescriptions: No Action famotidine 40 mg/5 mL (8 mg/mL) suspension 40 mg PO BEDTIME 30 Days Qty: 150 RF: 4 omeprazole 40 mg Capsule,Delayed Release(Dr/Ec) 40 mg PO BID RF: 0 multivitamin Tablet 1 tab PO DAILY RF: 0 trazodone 50 mg Tablet 50 mg PO BEDTIME RF: 0 thiamine HCl (vitamin B1) 100 mg Tablet 100 mg PO DAILY RF: 0 bupropion HCl 100 mg Tablet Sustained-Release 12 Hr 100 mg PO DAILY RF: 0 folic acid 1 mg Tablet 1 mg PO DAILY RF: 0 lisinopril 20 mg Tablet 20 mg PO DAILY RF: 0 magnesium oxide 400 mg (241.3 mg magnesium) Tablet 400 mg PO BIDPC Qty: 60 RF: 0 (DME) blood-glucose meter [OneTouch Ultra2 Meter] Kit See Rx Instructions .ROUTE .MEDSUPPLY Qty: 1 RF: 0 (DME) OneTouch Ultra Blue Test Strip Strip See Rx Instructions .ROUTE .MEDSUPPLY Qty: 100 RF: 0 (DME) lancing device with lancets [OneTouch Delica Plus Lanc Dev] Kit See Rx Instructions .ROUTE .MEDSUPPLY Qty: 1 RF: 0 (DME) lancets [OneTouch Delica Lancets] 33 gauge misc See Rx Instructions .ROUTE .MEDSUPPLY Qty: 100 RF: 0 (DME) pen needle, diabetic 32 gauge x 5/32 needle See Rx Instructions .ROUTE .MEDSUPPLY Qty: 100 RF: 0 naltrexone 50 mg tablet 50 mg PO DAILY Qty: 30 RF: 0 metoprolol tartrate 25 mg tablet 25 mg PO BID Qty: 60 RF: 0 insulin aspart U-100 [Novolog Flexpen U-100 Insulin] 100 unit/mL (3 mL) insulin pen See Rx Instructions .ROUTE .COMPLEX RF: 0 Levemir FlexTouch U-100 Insuln 100 unit/mL (3 mL) insulin pen 35 unit subcut BEDTIME RF: 0 Referrals: Physician,Unknown [Primary Care Provider] - 2 days
[2021-03-14] MEDS: 0.9 % Sodium Chloride 1,000 ML 999 ML IV (21:19)
[2021-03-14 21:20] LABS: MANUAL DIFF FLAG NO
[2021-03-14 21:22] VITALS: BP 130/74; PULSE 112; RESP 23; O2SAT 99
[2021-03-14 21:26] LABS: VBG Base Excess 2.7 mmol/L; VBG HCO3 29 mmol/L (22-26); VBG pCO2 55 mmHg; VBG pH 7.33 (7.32-7.43); VBG pO2 41 mmHg
[2021-03-14 21:28] LABS: Basophils Percent Auto 0.7 % (0-2); Eosinophils Absolute Auto 0.1 X10*3/uL (0.0-0.4); Eosinophils Percent Auto 2.6 % (0-4); Hematocrit 35.2 % (42-52); Hemoglobin 11.1 g/dl (14.0-18.0); Imm Gran Abs Auto 0.09 X10*3/uL (0.00-0.03); Imm Gran Pct Auto 1.7 % (0.0-0.4); Lymphocytes Absolute Auto 1.7 X10*3/uL (1.2-4.9); Lymphocytes Percent Auto 30.3 % (20-40); Mean Corpuscular HGB Conc 31.5 g/dl (31.0-36.0); Mean Corpuscular Hemoglobin 24.4 pg (27.0-33.0); Mean Corpuscular Volume 77.5 fL (80-98); Mean Platelet Volume 8.9 fL (9.4-12.4); Monocytes Absolute Auto 0.6 X10*3/uL (0.1-1.2); Monocytes Percent Auto 10.8 % (2-11); Neutrophils Absolute Auto 2.9 X10*3/uL (2.0-8.3); Neutrophils Percent Auto 53.9 % (45-73); Platelet Count 614 X10*3/uL (160-400); Red Blood Count 4.54 X10*6/uL (4.60-5.80); Red Cell Distribution Width 17.2 % (11.0-16.0); White Blood Count 5.4 X10*3/uL (4.8-10.8)
[2021-03-14 21:32] LABS: Venous Blood Gas Refer to POC result
[2021-03-14 21:53] LABS: Ethanol 421 mg/dL
[2021-03-14 22:02] LABS: Acetone, serum QL Negative (Negative)
[2021-03-14 22:10] LABS: Alanine Aminotransferase 27 U/L (0-40); Albumin Level 3.7 g/dL (3.5-5.0); Alkaline Phosphatase 128 U/L (39-117); Anion Gap 17 (12-20); Aspartate Amino Transferase 34 U/L (5-37); Bilirubin Direct < 0.2 mg/dL (0.0-0.5); Bilirubin Total 0.3 mg/dL (0.0-1.0); Blood Urea Nitrogen 15 mg/dL (9-16); Carbon Dioxide 27 mmol/L (22-29); Chloride 99 mmol/L (96-108); Creatinine Clr Calc Pharmacy 56.2; Estimated Glomerular Filt Rate 52; Lipase < 4 U/L (8-78); Potassium 5.5 mmol/L (3.3-5.1); Sodium 137 mmol/L (135-145)
[2021-03-14 22:29] VITALS: BP 112/50; PULSE 104; RESP 18; O2SAT 96
[2021-03-14] MEDS: 0.9 % Sodium Chloride 2,000 ML 999 ML IV (22:31)
[2021-03-15 00:18] LABS: Glucose, Whole Blood 408 mg/dL (60-115)
[2021-03-15 01:13] LABS: Glucose Random 658 mg/dL (60-115)
[2021-03-15 01:31] VITALS: BP 130/62; PULSE 96; RESP 16; O2SAT 97
[2021-03-15] MEDS: Insulin Lispro 100 UNIT/ML 3 ML VIAL 6 UNIT SUBCUT (01:32)
[2021-03-15 01:39] LABS: Glucose, Whole Blood 389 mg/dL (60-115)
--- NOTE | 2021-03-15 01:56 | PC.NURSE ---
Pt found to be incontinent of urine. Inc care provided. Pt requested, and provided with, a sandwich and water. Pt does not make any additional needs known at this time. Pt returned to sleep.
[2021-03-15 02:52] VITALS: BP 125/66; PULSE 94; RESP 20; O2SAT 99
[2021-03-15 04:00] VITALS: BP 139/75; PULSE 113; RESP 18; O2SAT 98
[2021-03-15 04:10] LABS: Glucose, Whole Blood 329 mg/dL (60-115)
[2021-03-15 05:07] VITALS: BP 143/76; PULSE 117; RESP 19; TEMP 36.7; O2SAT 98
--- NOTE | 2021-03-15 06:11 | PC.NURSE ---
Pt ambulatory with steady gait, able to tolerate PO intake. Pt aaaox4.
== END 2021-03-15 06:24 | disposition home or self-care (01) ==
PROVIDERS: Emergency Provider Student in an Organized Health Care Education/Training Program
DX: F10.129 Alcohol abuse with intoxication, unspecified (principal); Y90.8 Blood alcohol level of 240 mg/100 ml or more; I10 Essential (primary) hypertension; E11.65 Type 2 diabetes mellitus with hyperglycemia; Z79.4 Long term (current) use of insulin; Z79.899 Other long term (current) drug therapy
CPT/HCPCS: 36415; 80053; 80076; 80320; 82009; 82248; 82947; 83690; 85025; 96360; 96372; 99285

== ENCOUNTER 2021-03-16 08:46 | Emergency (ER) | payer MEDICAID, SELFPAY ==
[2021-03-16 08:59] VITALS: BP 118/74; BP 133/77; PULSE 112; PULSE 126; RESP 14; TEMP 36.9; O2SAT 95; O2SAT 98; BMI 23.1
--- NOTE | 2021-03-16 09:02 | PC.NURSE ---
FLORINDA BELTRÁN AT BEDSIDE. PATIENT REFUSING IV AT THIS TIME.
[2021-03-16 09:09] LABS: Glucose, Whole Blood 567 mg/dL (60-115)
[2021-03-16] MEDS: Insulin Regular, Human 100 UNIT/ML 3 ML VIAL 15 UNIT SUBCUT ×2 (09:10→10:25)
--- NOTE | 2021-03-16 09:20 | ED.GENADULT ---
HPI - General Adult General Chief complaint: General Medical Stated complaint: hyperglycemia/ETOH Time Seen by Provider: 03/16/21 08:52 Source: patient and EMS Mode of arrival: ambulatory Limitations: no limitations History of Present Illness HPI narrative: Patient presents to ED alcohol on breath and hyperglycemia. Patient is a regular of the ER for hyperglycemia and alcohol abuse. Patient's brother called because patient was drinking and being disruptive. EMS found his glucose fingerstick to be above 500. Patient is a known multiple ICU admissions for DKA. Patient not compliant with his insulin. Related Data Home Medications Medication Instructions Recorded Confirmed bupropion HCl 100 mg PO DAILY 11/13/20 03/13/21 folic acid 1 mg PO DAILY 11/13/20 03/13/21 lisinopril 20 mg PO DAILY 11/13/20 03/13/21 multivitamin 1 tab PO DAILY 11/13/20 03/13/21 thiamine HCl (vitamin B1) 100 mg PO DAILY 11/13/20 03/13/21 trazodone 50 mg PO BEDTIME 11/13/20 03/13/21 omeprazole 40 mg PO BID 12/11/20 03/13/21 insulin aspart U-100 100 unit/mL See Rx Instructions .ROUTE .COMPLEX 02/13/21 03/13/21 (3 mL) subcutaneous pen insulin detemir U-100 100 unit/mL 35 unit SUBCUT BEDTIME ml 02/13/21 03/13/21 (3 mL) subcutaneous pen Previous Rx's Medication Instructions Recorded OneTouch Ultra Blue Test Strip #100 ea 11/16/20 blood-glucose meter [OneTouch #1 ea 11/16/20 Ultra2 Meter] lancets [OneTouch Delica Lancets] #100 ea 11/16/20 lancing device with lancets #1 ea 11/16/20 [OneTouch Delica Plus Lanc Dev] magnesium oxide 400 mg PO BIDPC #60 tab 11/16/20 metoprolol tartrate 25 mg PO BID #60 tab 11/16/20 naltrexone 50 mg PO DAILY #30 tab 11/16/20 pen needle, diabetic #100 ea 11/16/20 famotidine 40 mg/5 mL (8 mg/mL) 40 mg PO BEDTIME 30 Days #150 ml 01/09/21 oral suspension Allergies Allergy/AdvReac Type Severity Reaction Status Date / Time No Known Allergies Allergy Verified 02/14/21 10:01 Review of Systems Review of Systems: Yes all other systems are reviewed and are negative Constitutional: Constitutional: Reports as per HPI and Reports no additional constitutional complaints Eyes: Eyes: Reports as per HPI and Reports no additional eye complaints ENT: Reports system reviewed and no additional complaints, except as documented and Reports as per HPI Cardiovascular: Cardiovascular: Reports as per HPI and Reports no additional cardiovascular complaints Respiratory: Respiratory: Reports as per HPI and Reports no additional respiratory complaints Gastrointestinal: Gastrointestinal: Reports as per HPI and Reports no additional gastrointestinal complaints Genitourinary: Genitourinary: Reports no additional male genitourinary complaints and Reports as per HPI Musculoskeletal: Musculoskeletal: Reports no additional musculoskeletal complaints and Reports as per HPI Neurologic: Reports system reviewed and no additional complaints, except as documented and Reports as per HPI Psychiatric: Psychiatric: Reports no additional psychiatric complaints and Reports as per HPI [facility] Past Medical History Medical History Acute alcoholic gastritis Alcohol use disorder, severe, dependence Alcoholism Depressed Diabetes Esophageal stricture Fever of unknown origin Gastritis GIB (gastrointestinal bleeding) Head injury HLD (hyperlipidemia) HTN (hypertension) Hypomagnesemia Hypophosphatemia Odynophagia On beta cher at home Pancreatitis Seizures Supraventricular tachycardia Type 2 diabetes mellitus Vitamin D deficiency Surgical History H/O colonoscopy History of esophagogastroduodenoscopy (EGD) Family History Family History Father Diabetes Social History Social History Household Members: Spouse and Other Household Members Other:: homeless at present Housing: Homeless Alcohol intake: current Alcohol intake frequency: 3 or more drinks per day Alcohol type: hard liquor Smoking Status: Never smoker Second Hand Smoke Exposure: No Use of substances other than those prescribed or required for medical reasons: No Advance Directives: No Advance Directives Information Provided: No Advance Directives Date on File: 12/12/20 service: No Current occupational status: unemployed and disabled Physical Exam Vital Signs: Vital Signs: Last Vital Signs Temp 98.5 F 03/16/21 08:59 Pulse 106 H 03/16/21 11:24 Resp 19 03/16/21 11:24 BP 136/62 03/16/21 11:24 Pulse Ox 95 03/16/21 08:59 Body Mass Index 23.1 Const: General: cooperative, healthy appearing, comfortable, no acute distress and well developed HENMT: Head: Yes normal to inspection, Yes No palpable skull fracture present, Yes normocephalic, Yes atraumatic and No abrasion Eyes: General: appearance normal, both eyes and all related structures Neck: Neck: Yes normal visual inspection, Yes full ROM, Yes no lymphadenopathy, Yes no meningeal signs, Yes trachea midline, Yes supple and No tender Chest: Chest palpation & inspection: normal inspection of the chest and normal palpation of entire chest wall Resp: Effort & Inspection: normal respiratory effort and able to speak in complete sentences Auscultation: clear to auscultation bilaterally Cardio: Jugular venous distension: no JVD Heart sounds: S1 normal heart sound present and S2 normal heart sound present GI: Inspection: Yes normal to inspection and No abdominal wall ecchymosis Palpation (GI): Soft to palpation, not firm, nontender, no guarding and not rigid : General: No CVA tenderness and Yes no CVA tenderness Back/Spine/Pelvis: Back: no CVA tenderness, No CVA tenderness and No back tenderness Skin: General skin exam: no rashes or lesions noted and elasticity normal Neuro: Other: Alcohol on breath General: no meningeal signs and CN's II-XI intact bilaterally Cranial nerves: Yes CN's II-XII intact bilaterally Extrem: General: Yes normal to inspection and Yes full ROM Psych: Appearance: grossly normal, well kempt and not disheveled Course Course Course Narrative: Labs were ordered. I went to the patient's bedside with ultrasound to perform ultrasound guided IV to get labs and start given fluids. Patient known history of DKA. Patient told me and the nurse he is refusing labs and also refusing IV. Patient would like to be left alone. Myself and the nurse talked to patient multiple times trying to convince patient to allow us to get IV, labs, and fluids but patient refused. Due to patient refusing will give subQ insulin and oral fluids. Will re-evaluate patient to see if he is agreeable for IV fluids and labs. Reevaluation(s) Reevaluation #1: Patient's fingerstick after 30 of insulin subcu is now 320. Nurse and I both went to speak to patient to convince him to allow us to do IV ultrasound get labs and treat him to rule out possible DKA, but patient states no he would like to sign against medical advice. Will try again later to talk to patien to allow medical evaluation. Reevaluation #2: Nurse Tabatha and I spoke to patient time to see if he is agreeable to get labs and placed but he refused. Patient presently alert oriented x3. Patient would like to sign out against medical advice. Patient informed risk of dying due to possibility of DKA, dehdyration, and alcoholic ketoacidosis, but patient refused. Patient signed against medical advice knowing risk of , disability, and decrease quality of life. Medical Decision Making Lab Data Labs: Lab Results 03/16/21 03/16/21 03/16/21 Range/Units 08:54 09:13 10:02 POC Glucose 567 H* 463 H* (60-115) mg/dL Urine Color Urine Appearance Urine pH (5.0-8.0) Ur Specific [place] (1.005-1.025) Urine Protein (NEG-TRACE) MG/DL Urine Glucose (UA) (NEG) MG/DL Urine Ketones (NEG) MG/DL Urine Blood (NEG) Urine Nitrite (NEG) Ur Leukocyte Esterase (NEG) Urine RBC (0) /HPF Urine WBC (0-4) /HPF Ur Squamous Epith Cells /LPF Urine Bacteria /LPF Urine Yeast /HPF COVID-19 ([facility]) Negative (Negative) COVID-19 Clin Com See Note 03/16/21 03/16/21 Range/Units 10:04 11:25 POC Glucose 320 H (60-115) mg/dL Urine Color STRAW Urine Appearance CLEAR Urine pH 6.0 (5.0-8.0) Ur Specific [place] 1.015 (1.005-1.025) Urine Protein TRACE (NEG-TRACE) MG/DL Urine Glucose (UA) >=1000 H (NEG) MG/DL Urine Ketones NEG (NEG) MG/DL Urine Blood TRACE (NEG) Urine Nitrite NEG (NEG) Ur Leukocyte Esterase NEG (NEG) Urine RBC 0 (0) /HPF Urine WBC 5-9 H (0-4) /HPF Ur Squamous Epith Cells 1+ /LPF Urine Bacteria NONE /LPF Urine Yeast 2+ /HPF COVID-19 ([facility]) (Negative) COVID-19 Clin Com Discharge Plan Discharge Clinical Impression: Alcohol abuse, Acute hyperglycemia Patient Disposition: Left Against Medical Advice Instructions: Abuse of Alcohol (ED), Diabetic Hyperglycemia (ED) Additional Instructions: Return to the ED immediately for any chest pain, shortness of breath, abdominal pain, vomiting, diarrhea, weakness, dizziness, headache, or any other concerning symptoms. Prescriptions: No Action famotidine 40 mg/5 mL (8 mg/mL) suspension 40 mg PO BEDTIME 30 Days Qty: 150 RF: 4 omeprazole 40 mg Capsule,Delayed Release(Dr/Ec) 40 mg PO BID RF: 0 multivitamin Tablet 1 tab PO DAILY RF: 0 trazodone 50 mg Tablet 50 mg PO BEDTIME RF: 0 thiamine HCl (vitamin B1) 100 mg Tablet 100 mg PO DAILY RF: 0 bupropion HCl 100 mg Tablet Sustained-Release 12 Hr 100 mg PO DAILY RF: 0 folic acid 1 mg Tablet 1 mg PO DAILY RF: 0 lisinopril 20 mg Tablet 20 mg PO DAILY RF: 0 magnesium oxide 400 mg (241.3 mg magnesium) Tablet 400 mg PO BIDPC Qty: 60 RF: 0 (DME) blood-glucose meter [OneTouch Ultra2 Meter] Kit See Rx Instructions .ROUTE .MEDSUPPLY Qty: 1 RF: 0 (DME) OneTouch Ultra Blue Test Strip Strip See Rx Instructions .ROUTE .MEDSUPPLY Qty: 100 RF: 0 (DME) lancing device with lancets [OneTouch Delica Plus Lanc Dev] Kit See Rx Instructions .ROUTE .MEDSUPPLY Qty: 1 RF: 0 (DME) lancets [OneTouch Delica Lancets] 33 gauge misc See Rx Instructions .ROUTE .MEDSUPPLY Qty: 100 RF: 0 (DME) pen needle, diabetic 32 gauge x 5/32 needle See Rx Instructions .ROUTE .MEDSUPPLY Qty: 100 RF: 0 naltrexone 50 mg tablet 50 mg PO DAILY Qty: 30 RF: 0 metoprolol tartrate 25 mg tablet 25 mg PO BID Qty: 60 RF: 0 insulin aspart U-100 [Novolog Flexpen U-100 Insulin] 100 unit/mL (3 mL) insulin pen See Rx Instructions .ROUTE .COMPLEX RF: 0 Levemir FlexTouch U-100 Insuln 100 unit/mL (3 mL) insulin pen 35 unit subcut BEDTIME RF: 0 Stand Alone Forms: Against Medical Advice Interventions: ED Discharge Assessment Last Done: 03/16/21 12:28 Discharge Date/Time: 03/16/21 12:29 Print Language: Citizen Of [place]
[2021-03-16 09:27] VITALS: BP 144/64; PULSE 104
[2021-03-16 09:47] LABS: COVID-19 Test Negative (Negative)
[2021-03-16 10:08] LABS: Glucose, Whole Blood 463 mg/dL (60-115)
[2021-03-16 10:11] LABS: Glucose Urine UA >=1000 MG/DL (NEG); Leukocyte Esterase Urine NEG (NEG); Nitrite Urine NEG (NEG); Specific Gravity - Urine 1.015 (1.005-1.025); Urine Blood TRACE (NEG); Urine Ketones NEG (NEG); Urine Protein TRACE MG/DL (NEG-TRACE)
[2021-03-16 10:16] LABS: Appearance Urine CLEAR; Color Urine STRAW
[2021-03-16 10:27] VITALS: BP 152/71; PULSE 108; RESP 18
[2021-03-16 10:32] LABS: RBC Urine 0 /HPF (0); Squamous Epithelial Cell Urine 1+ /LPF; UACC CULT YES
--- NOTE | 2021-03-16 10:48 | MHC.RECOVSUP ---
Recovery Support note: This proposal manager writer met with patient to offer recovery support and treatment options. Patient declined. Patient presented to [facility] on 03/14 at 2000, his second visit that day. Patient was found on the street by police and was transported to [facility] via EMS. Patient had a BAL of 421 and a random glucose measure of 658. Patient was incontinent of urine while in the ED. Patient declined recovery services and was discharged in the morning on 03/15. Patient returned to the ED at 900 on 03/16 after his brother called EMS due to patient drinking and being disruptive. Patient was reportedly eating many pieces of cake and was drunk. Patient refused IV access while in the ED however admits that he has been drinking. Patient POC glucose reading is 567 upon admission. This proposal manager writer attempted to consult with patient on two occasions however both times he declines wanting help. Patient will contact staff if he is willing to allow IV access or if he is interested in getting help for his alcohol use disorder.
[2021-03-16 11:24] VITALS: BP 136/62; PULSE 106; RESP 19
[2021-03-16 11:30] LABS: Glucose, Whole Blood 320 mg/dL (60-115)
== END 2021-03-16 12:29 | disposition left against medical advice (07) ==
PROVIDERS: Physician Assistant; Emergency Provider Emergency Medicine Emergency Medical Services
DX: F10.129 Alcohol abuse with intoxication, unspecified (principal); E11.65 Type 2 diabetes mellitus with hyperglycemia; Z20.822 Contact with and (suspected) exposure to COVID-19; Z79.4 Long term (current) use of insulin; Z79.899 Other long term (current) drug therapy; Z59.0 Homelessness; Z71.41 Alcohol abuse counseling and surveillance of alcoholic
CPT/HCPCS: 36415; 81001; 82947; 87086; 87635; 96360; 96372; 99284

== ENCOUNTER 2021-03-17 00:53 | Emergency (ER) | payer MEDICAID, SELFPAY ==
--- NOTE | ~2021-03-17 | CT_ITS ---
EXAMINATION: CT HEAD WITHOUT CONTRAST CLINICAL INFORMATION: Fall. Intoxication. COMPARISON: 06/11/2020 TECHNIQUE: Contiguous axial imaging was performed from the skull base to vertex without intravenous administration of contrast. This CT examination was performed using dose optimization techniques as appropriate, variously including the following: *Automated exposure control *Adjustment of mA and/or kV according to patient size (this includes techniques or standardized protocols for targeted exams where dose is matched to indication/reason for exam; i.e. extremities or head) *Use of iterative reconstruction technique DLP: 698 mGy-cm FINDINGS: There is no evidence of acute intracranial hemorrhage or territorial infarction. No abnormal mass effect or midline shift is seen. Pollard to white matter differentiation is well preserved. No extra-axial fluid collections are identified. Mild generalized brain parenchymal volume loss. No evidence of superimposed hydrocephalus. Moderate patchy subcortical and periventricular white matter low-attenuation changes statistically related to chronic white matter small vessel ischemic disease. Lacunar infarct present within the right caudate head. The osseous structures and soft tissues are normal. Mild mucosal thickening present within the bilateral maxillary sinuses and ethmoid air cells. CT/CT head/brain wo con IMPRESSION: No acute intracranial pathology.
[2021-03-17 01:02] VITALS: BP 162/81; PULSE 97; RESP 17; TEMP 36.3; O2SAT 99; BMI 21.2
--- NOTE | 2021-03-17 01:07 | ECG_ITS ---
Test Reason : ETOH Blood Pressure : / mmHG Vent. Rate : 104 BPM Atrial Rate : 104 BPM P-R Int : 128 ms QRS Dur : 082 ms QT Int : 332 ms P-R-T Axes : 068 078 053 degrees QTc Int : 436 ms Sinus tachycardia Otherwise normal ECG When compared with ECG of 05-MAR-2021 10:08, No significant change was found Referred By: Lora Robertson Electronically Signed By:Maynor Salcedo
--- NOTE | 2021-03-17 01:10 | PC.NURSE ---
bedside glucose was 301 at this time, checked by this RN
--- NOTE | 2021-03-17 01:11 | ED.ALCOHOL ---
HPI - Alcohol General Chief Complaint: ETOH/Substance Use <JEREL Mark - Last Filed: 03/17/21 02:05> Stated Complaint: ETOH <JEREL Mark - Last Filed: 03/17/21 02:05> Time Seen by Provider: 03/17/21 00:56 <JEREL Mark - Last Filed: 03/17/21 02:05> Source: patient and EMS <JEREL Mark - Last Filed: 03/17/21 02:05> Mode of arrival: EMS <JEREL Mark - Last Filed: 03/17/21 02:05> History of Present Illness HPI narrative: 56-year-old male with a PMHx of alcohol abuse/dependence, HLD, HTN, hypomagnesemia, hypophosphatemia, DM, seizures, SVT, vitamin-D deficiency, with multiple admissions to our facility for DKA, BIBA after being found wandering around [place] w/unsteady gait/intoxicated. Patient admits to drinking too much vodka today, denies illicit drug use, SI/HI. Reports his glucose is probably high, denies taking DM medications. Also reports fall today, + head trauma, denies LOC. Denies abdominal pain, nausea/vomiting, CP/SOB, headache <JEREL Mark - Last Filed: 03/17/21 02:05> Related Data Home Medications: Home Medications Medication Instructions Recorded Confirmed bupropion HCl 100 mg PO DAILY 11/13/20 03/13/21 folic acid 1 mg PO DAILY 11/13/20 03/13/21 lisinopril 20 mg PO DAILY 11/13/20 03/13/21 multivitamin 1 tab PO DAILY 11/13/20 03/13/21 thiamine HCl (vitamin B1) 100 mg PO DAILY 11/13/20 03/13/21 trazodone 50 mg PO BEDTIME 11/13/20 03/13/21 omeprazole 40 mg PO BID 12/11/20 03/13/21 insulin aspart U-100 100 unit/mL See Rx Instructions .ROUTE .COMPLEX 02/13/21 03/13/21 (3 mL) subcutaneous pen insulin detemir U-100 100 unit/mL 35 unit SUBCUT BEDTIME ml 02/13/21 03/13/21 (3 mL) subcutaneous pen Previous Rx's Medication Instructions Recorded OneTouch Ultra Blue Test Strip #100 ea 11/16/20 blood-glucose meter [OneTouch #1 ea 11/16/20 Ultra2 Meter] lancets [OneTouch Delica Lancets] #100 ea 11/16/20 lancing device with lancets #1 ea 11/16/20 [OneTouch Delica Plus Lanc Dev] magnesium oxide 400 mg PO BIDPC #60 tab 11/16/20 metoprolol tartrate 25 mg PO BID #60 tab 11/16/20 naltrexone 50 mg PO DAILY #30 tab 11/16/20 pen needle, diabetic #100 ea 11/16/20 famotidine 40 mg/5 mL (8 mg/mL) 40 mg PO BEDTIME 30 Days #150 ml 01/09/21 oral suspension <JEREL Mark - Last Filed: 03/17/21 02:05> Allergies/Adverse Reactions: Allergies Allergy/AdvReac Type Severity Reaction Status Date / Time No Known Allergies Allergy Verified 02/14/21 10:01 <JEREL Mark Last Filed: 03/17/21 02:05> Review of Systems Review of Systems: Constitutional: No Fever, No Chills Cardiovascular: No Chest Pain, No SOB Respiratory: No Cough, No Dyspnea Gastrointestinal: No Nausea, No Vomiting, No Abdominal pain Genitourinary: No Dysuria, No Hematuria Musculoskeletal: No joint pain, No Myalgias, No Joint Swelling Skin: No Skin Lesions, No rash Neuro: No Weakness, No Numbness, No Loss of Consciousness, +head trauma, +fall, No Headache Psych: No SI/HI <JEREL Mark Last Filed: 03/17/21 02:05> Yes all other systems are reviewed and are negative <JEREL Mark Last Filed: 03/17/21 02:05> FORMERLY [facility] Past Medical History Attestation statement: The following information was validated with the patient. <JEREL Mark Last Filed: 03/17/21 02:05> Medical History: Medical History Acute alcoholic gastritis Alcohol use disorder, severe, dependence Alcoholism Depressed Diabetes Esophageal stricture Fever of unknown origin Gastritis GIB (gastrointestinal bleeding) Head injury HLD (hyperlipidemia) HTN (hypertension) Hypomagnesemia Hypophosphatemia Odynophagia On beta cher at home Pancreatitis Seizures Supraventricular tachycardia Type 2 diabetes mellitus Vitamin D deficiency <JEREL Mark - Last Filed: 03/17/21 02:05> Surgical History: Surgical History H/O colonoscopy History of esophagogastroduodenoscopy (EGD) <JEREL Mark - Last Filed: 03/17/21 02:05> Family History Family History: Family History Father Diabetes <JEREL Mark - Last Filed: 03/17/21 02:05> Social History Social History: Social History Household Members: Spouse and Other Household Members Other:: homeless at present Housing: Homeless Alcohol intake: current Alcohol intake frequency: 3 or more drinks per day Alcohol type: hard liquor Smoking Status: Never smoker Second Hand Smoke Exposure: No Advance Directives: Yes Advance Directives on File: Yes Advance Directives Date on File: 12/12/20 service: No Current occupational status: unemployed and disabled <JEREL Mark - Last Filed: 03/17/21 02:05> Physical Exam Vital Signs: Vital Signs: Last Vital Signs Temp 97.3 F 03/17/21 01:02 Pulse 89 03/17/21 05:15 Resp 03/17/21 05:15 BP 159/74 H 03/17/21 05:15 Pulse Ox 99 03/17/21 05:15 Body Mass Index 21.2 <JEREL Mark - Last Filed: 03/17/21 02:05> Vital Signs: Last Vital Signs Temp 97.3 F 03/17/21 01:02 Pulse 89 03/17/21 05:15 Resp 15 03/17/21 05:15 BP 159/74 H 03/17/21 05:15 Pulse Ox 99 03/17/21 05:15 Body Mass Index 21.2 <Zoe Polanco DO - Last Filed: 03/17/21 06:41> Const: Other: + ETOH odor on breath <JEREL Mark - Last Filed: 03/17/21 02:05> General: cooperative <Lora Robertson GA - Last Filed: 03/17/21 02:05> Orientation/consciousness: patient oriented x3 <Lora Robertson GA - Last Filed: 03/17/21 02:05> Limitations: no limitations <Lora Robertson GA - Last Filed: 03/17/21 02:05> HENMT: Head: Yes normal to inspection and Yes atraumatic <Lora Robertson GA - Last Filed: 03/17/21 02:05> Ears: hearing grossly normal bilaterally <Lora Robertson GA - Last Filed: 03/17/21 02:05> General nose exam: Normal external nose present <Lora Robertson GA - Last Filed: 03/17/21 02:05> Face and sinus: Yes normal facial exam <Lora Robertson GA - Last Filed: 03/17/21 02:05> Eyes: General: appearance normal, both eyes and all related structures <Lora Robertson GA - Last Filed: 03/17/21 02:05> Pupils: Equal, round and reactive pupils present <Lora Robertson GA - Last Filed: 03/17/21 02:05> EOM: EOMs intact bilaterally <Lora Robertson GA - Last Filed: 03/17/21 02:05> Neck: Neck: Yes normal visual inspection and Yes no meningeal signs <Lora Robertson GA - Last Filed: 03/17/21 02:05> Chest: Chest palpation & inspection: normal inspection of the chest, no crepitus and no tenderness <Lora Robertson GA - Last Filed: 03/17/21 02:05> Resp: Effort & Inspection: normal respiratory effort <Lora Robertson GA - Last Filed: 03/17/21 02:05> Auscultation: clear to auscultation bilaterally, rales, rhonchi and wheezes <Lora Robertson GA - Last Filed: 03/17/21 02:05> Cardio: Rate: regular rate <Lora Robertson GA - Last Filed: 03/17/21 02:05> Heart sounds: S1 normal heart sound present and S2 normal heart sound present <JEREL Mark - Last Filed: 03/17/21 02:05> GI: Inspection: Yes normal to inspection <JEREL Mark - Last Filed: 03/17/21 02:05> Palpation (GI): Soft to palpation, nontender, no guarding and not rigid <JEREL Mark - Last Filed: 03/17/21 02:05> Skin: Rashes: no rashes <Lora Robertson PA - Last Filed: 03/17/21 02:05> Wounds: no wounds <Lora Robertson PA - Last Filed: 03/17/21 02:05> Neuro: General: patient oriented x3, tone normal, moves all extremities and no meningeal signs <JEREL Mark - Last Filed: 03/17/21 02:05> Cranial nerves: Yes Equal, round and reactive pupils present <JEREL Mark - Last Filed: 03/17/21 02:05> Extrem: General: Yes normal to inspection <JEREL Mark - Last Filed: 03/17/21 02:05> Course Course Course Narrative: - POC [id number]--patient giving us a hard time about obtaining labs/head CT, was convinced/allowed head CT -EKG unchanged from priors, potassium from 03/14 elevated to 5.5 -0200--Myslef and patients nurse and tech tried multiple times to convince patient to allow us to obtain lab work, however he is persistently refusing. Will let patient rest and try again later. -0205--ED can transfer to Dr. Johnson head CT results, UA and hopeful labs <JEREL Mark - Last Filed: 03/17/21 02:05> MDM - Alcohol MDM Narrative Medical decision making narrative: 56-year-old male with a PMHx of alcohol abuse/dependence, HLD, HTN, hypomagnesemia, hypophosphatemia, DM, seizures, SVT, vitamin-D deficiency, with multiple admissions to our facility for DKA, BIBA after being found wandering around [place] w/unsteady gait/intoxicated. Also reports fall today, + head trauma. On exam ETOH odor on breath, A&O x3, atraumatic, lungs CTA. Concern for ETOH intoxication and DKA. Rule out ICH and metabolic abnls Pain: EKG, labs, UA, head CT, IVF, reassess <JEREL Mark - Last Filed: 03/17/21 02:05> Differential Diagnosis Differential diagnosis: Likely alcohol dependence and alcohol intoxication <JEREL Mark - Last Filed: 03/17/21 02:05> Medical Records Attestation: I reviewed the patient's medical records. <JEREL Mark - Last Filed: 03/17/21 02:05> Lab Data Attestation: I reviewed the patient's lab results. <JEREL Mark - Last Filed: 03/17/21 02:05> Labs: Lab Results 03/17/21 03/17/21 03/17/21 Range/Units 04:53 05:08 05:08 POC Glucose 252 H (60-115) mg/dL Urine Color YELLOW Urine Appearance CLEAR Urine pH 6.0 (5.0-8.0) Ur Specific [place] 1.025 (1.005-1.025) Urine Protein 2+ H (NEG-TRACE) MG/DL Urine Glucose (UA) >=1000 H (NEG) MG/DL Urine Ketones NEG (NEG) MG/DL Urine Blood 1+ H (NEG) Urine Nitrite NEG (NEG) Ur Leukocyte Esterase NEG (NEG) Urine RBC 0-2 (0) /HPF Urine WBC 5-9 H (0-4) /HPF Ur Squamous Epith Cells 2+ /LPF Urine Bacteria TRACE /LPF Hyaline Casts 0-2 /LPF Urine Mucus 1+ /LPF Urine Yeast TRACE /HPF Urine Opiates Screen Not Detected (Not Detect) Ur Barbiturates Screen POSITIVE H (Not Detect) Ur Phencyclidine Scrn Not Detected (Not Detect) Ur Amphetamines Screen Not Detected (Not Detect) U Benzodiazepines Scrn Not Detected (Not Detect) Urine Cocaine Screen Not Detected (Not Detect) U Marijuana (THC) Screen Not Detected (Not Detect) <JEREL Mark - Last Filed: 03/17/21 02:05> Lab Results 03/17/21 03/17/21 03/17/21 Range/Units 04:53 05:08 05:08 POC Glucose 252 H (60-115) mg/dL Urine Color YELLOW Urine Appearance CLEAR Urine pH 6.0 (5.0-8.0) Ur Specific [place] 1.025 (1.005-1.025) Urine Protein 2+ H (NEG-TRACE) MG/DL Urine Glucose (UA) >=1000 H (NEG) MG/DL Urine Ketones NEG (NEG) MG/DL Urine Blood 1+ H (NEG) Urine Nitrite NEG (NEG) Ur Leukocyte Esterase NEG (NEG) Urine RBC 0-2 (0) /HPF Urine WBC 5-9 H (0-4) /HPF Ur Squamous Epith Cells 2+ /LPF Urine Bacteria TRACE /LPF Hyaline Casts 0-2 /LPF Urine Mucus 1+ /LPF Urine Yeast TRACE /HPF Urine Opiates Screen Not Detected (Not Detect) Ur Barbiturates Screen POSITIVE H (Not Detect) Ur Phencyclidine Scrn Not Detected (Not Detect) Ur Amphetamines Screen Not Detected (Not Detect) U Benzodiazepines Scrn Not Detected (Not Detect) Urine Cocaine Screen Not Detected (Not Detect) U Marijuana (THC) Screen Not Detected (Not Detect) <Zoe Polanco DO - Last Filed: 03/17/21 06:41> ECG Data Attestation: I personally reviewed and interpreted this ECG as follows: <JEREL Mark - Last Filed: 03/17/21 02:05> ECG interpretation date: 03/17/21 <JEREL Mark - Last Filed: 03/17/21 02:05> ECG interpretation time: 01:45 <JEREL Mark - Last Filed: 03/17/21 02:05> Prior ECG tracings: available for review <JEREL Mark Last Filed: 03/17/21 02:05> Interpretation: EKG sinus tachycardia at the rate of 104. QTC 436. unchanged from prior <JEREL Mark Last Filed: 03/17/21 02:05> Discharge Plan Discharge Clinical Impression: Alcohol intoxication, Acute hyperglycemia <JEREL Mark Last Filed: 03/17/21 02:05> Prescriptions: No Action famotidine 40 mg/5 mL (8 mg/mL) suspension 40 mg PO BEDTIME 30 Days Qty: 150 RF: 4 omeprazole 40 mg Capsule,Delayed Release(Dr/Ec) 40 mg PO BID RF: 0 multivitamin Tablet 1 tab PO DAILY RF: 0 trazodone 50 mg Tablet 50 mg PO BEDTIME RF: 0 thiamine HCl (vitamin B1) 100 mg Tablet 100 mg PO DAILY RF: 0 bupropion HCl 100 mg Tablet Sustained-Release 12 Hr 100 mg PO DAILY RF: 0 folic acid 1 mg Tablet 1 mg PO DAILY RF: 0 lisinopril 20 mg Tablet 20 mg PO DAILY RF: 0 magnesium oxide 400 mg (241.3 mg magnesium) Tablet 400 mg PO BIDPC Qty: 60 RF: 0 (DME) blood-glucose meter [OneTouch Ultra2 Meter] Kit See Rx Instructions .ROUTE .MEDSUPPLY Qty: 1 RF: 0 (DME) OneTouch Ultra Blue Test Strip Strip See Rx Instructions .ROUTE .MEDSUPPLY Qty: 100 RF: 0 (DME) lancing device with lancets [[facility] Delica Plus Lanc Dev] Kit See Rx Instructions .ROUTE .MEDSUPPLY Qty: 1 RF: 0 (DME) lancets [OneTouch Delica Lancets] 33 gauge misc See Rx Instructions .ROUTE .MEDSUPPLY Qty: 100 RF: 0 (DME) pen needle, diabetic 32 gauge x 5/32 needle See Rx Instructions .ROUTE .MEDSUPPLY Qty: 100 RF: 0 naltrexone 50 mg tablet 50 mg PO DAILY Qty: 30 RF: 0 metoprolol tartrate 25 mg tablet 25 mg PO BID Qty: 60 RF: 0 insulin aspart U-100 [Novolog Flexpen U-100 Insulin] 100 unit/mL (3 mL) insulin pen See Rx Instructions .ROUTE .COMPLEX RF: 0 Levemir FlexTouch U-100 Insuln 100 unit/mL (3 mL) insulin pen 35 unit subcut BEDTIME RF: 0 <JEREL Mark - Last Filed: 03/17/21 02:05>
[2021-03-17 01:20] VITALS: BP 142/82; PULSE 95
--- NOTE | 2021-03-17 01:55 | PC.NURSE ---
patient is not letting this RN and tech obtain bloodwork or an EKG- with the help of the provider the patient agreed to go the EKG, CT and bloodwork.
--- NOTE | 2021-03-17 02:02 | PC.NURSE ---
patient completd the EKG and CT, and the patient continues to refuse bloodwork- patient keeps stating i have the right to refuse, i dont want blood taken because you cant get it . Patient has been educated by this RN and ED provider multiple why the patient needs it and the risks of not getting the blood work and the patient continues to yell at staff that he refuses. Will reassess.
--- NOTE | 2021-03-17 03:22 | PC.NURSE ---
Patient is sleeping at this time, easily arousable to verbal stimuli- patient continues to decline bloodwork
[2021-03-17 03:49] VITALS: PULSE 90; RESP 15
[2021-03-17 04:58] LABS: Glucose, Whole Blood 252 mg/dL (60-115)
[2021-03-17 05:15] VITALS: BP 159/74; PULSE 89; RESP 15; O2SAT 99
[2021-03-17 05:16] LABS: Glucose Urine UA >=1000 MG/DL (NEG); Leukocyte Esterase Urine NEG (NEG); Nitrite Urine NEG (NEG); Specific Gravity - Urine 1.025 (1.005-1.025); Urine Blood 1+ (NEG); Urine Ketones NEG (NEG); Urine Protein 2+ MG/DL (NEG-TRACE)
[2021-03-17 05:17] LABS: Appearance Urine CLEAR; Color Urine YELLOW
--- NOTE | 2021-03-17 05:17 | PC.NURSE ---
Patient let this RN check his glucose and update vitals, patent urinated in a urinal, urine sample was obtained. Patient was encouraged to drink water and had approx 5 sips of water. Patient continuing to refuse bloodwork.
[2021-03-17 05:26] LABS: Bacteria Urine TRACE /LPF; Hyaline Casts Urine 0-2 /LPF; Mucus Urine 1+ /LPF; RBC Urine 0-2 /HPF (0); Squamous Epithelial Cell Urine 2+ /LPF
[2021-03-17 05:31] LABS: Amphetamine Screen Urine Not Detected (Not Detect); Barbiturates, Urine POSITIVE (Not Detect); Benzodiazepines Screen Urine Not Detected (Not Detect); Cannabinoid Screen Urine Not Detected (Not Detect); Cocaine Screen Urine Not Detected (Not Detect); Opiate Screen Urine Not Detected (Not Detect); Phencyclidine Screen Urine Not Detected (Not Detect)
[2021-03-17 06:00] VITALS: BP 150/82; PULSE 98; RESP 18; O2SAT 96
[2021-03-17 07:34] LABS: Glucose, Whole Blood 301 mg/dL (60-115)
--- NOTE | 2021-03-17 07:45 | MHC.CARE ---
0640: Met with pt upon receiving a consult request from ED Dr. Alma Polanco. Pt has refused ETOH level testing, stating he does not want to be ?Poked anymore?. Pt arrived at this ED via ambulance after being found wandering around [place] w/unsteady gait and intoxication. Patient admits to consuming vodka in quantities sufficient enough to cause a high level of intoxication. Pt reported top ED staff that he had experienced a fall. Pt is disinterested in receiving services/assistance for his alcohol addiction, stating ?I just want to go home.? Pt reports having a prescriber and a therapist. Pt is disinterested in any referrals for a tissue recovery technician or any other addiction services. Pt stated that he began regularly consuming alcoholic beverages to the point of intoxication when his ?? kicked him out of the house after she returned from [place] and found him intoxicated. Pt stated that after that point, when he found himself homeless, he began drinking heavily again. Pt has been in the Ed this month on 03/13, 03/14, 03/15 and 03/17. In all cases pt was transported via ambulance for alcohol intoxication. Dr. Alma Polanco suggested exploring candidacy for a section 35 with this pt.
== END 2021-03-17 07:14 | disposition home or self-care (01) ==
PROVIDERS: Physician Assistant; Emergency Provider Student in an Organized Health Care Education/Training Program
DX: F10.229 Alcohol dependence with intoxication, unspecified (principal); E11.65 Type 2 diabetes mellitus with hyperglycemia; Y90.9 Presence of alcohol in blood, level not specified; I10 Essential (primary) hypertension; Z79.899 Other long term (current) drug therapy; Z79.4 Long term (current) use of insulin
CPT/HCPCS: 36415; 70450; 80053; 80307; 80320; 81001; 82009; 82947; 85025; 87086; 93005; 99284

== ENCOUNTER 2021-03-17 16:10 | Emergency (ER) | payer MEDICAID, SELFPAY ==
[2021-03-17 16:18] VITALS: BP 141/63; PULSE 105; RESP 18; TEMP 36.6; O2SAT 99; BMI 25.8
--- NOTE | 2021-03-17 16:26 | ED_ITS ---
HPI - Alcohol General Chief Complaint: ETOH/Substance Use Stated Complaint: etoh Time Seen by Provider: 03/17/21 16:25 Source: patient Mode of arrival: EMS Limitations: no limitations History of Present Illness HPI narrative: Patient with history of chronic alcohol abuse been here multiple times , 4 times last week found intoxicated in front of [facility] asking for help would like to go to detox. No head injury no fall no suicidal ideation. Patient POC was 243 by EMS Related Data Home Medications Medication Instructions Recorded Confirmed bupropion HCl 100 mg PO DAILY 11/13/20 03/13/21 folic acid 1 mg PO DAILY 11/13/20 03/13/21 lisinopril 20 mg PO DAILY 11/13/20 03/13/21 multivitamin 1 tab PO DAILY 11/13/20 03/13/21 thiamine HCl (vitamin B1) 100 mg PO DAILY 11/13/20 03/13/21 trazodone 50 mg PO BEDTIME 11/13/20 03/13/21 omeprazole 40 mg PO BID 12/11/20 03/13/21 insulin aspart U-100 100 unit/mL See Rx Instructions .ROUTE .COMPLEX 02/13/21 03/13/21 (3 mL) subcutaneous pen insulin detemir U-100 100 unit/mL 35 unit SUBCUT BEDTIME ml 02/13/21 03/13/21 (3 mL) subcutaneous pen Previous Rx's Medication Instructions Recorded OneTouch Ultra Blue Test Strip #100 ea 11/16/20 blood-glucose meter [OneTouch #1 ea 11/16/20 Ultra2 Meter] lancets [OneTouch Delica Lancets] #100 ea 11/16/20 lancing device with lancets #1 ea 11/16/20 [OneTouch Delica Plus Lanc Dev] magnesium oxide 400 mg PO BIDPC #60 tab 11/16/20 metoprolol tartrate 25 mg PO BID #60 tab 11/16/20 naltrexone 50 mg PO DAILY #30 tab 11/16/20 pen needle, diabetic #100 ea 11/16/20 famotidine 40 mg/5 mL (8 mg/mL) 40 mg PO BEDTIME 30 Days #150 ml 01/09/21 oral suspension Allergies Allergy/AdvReac Type Severity Reaction Status Date / Time No Known Allergies Allergy Verified 02/14/21 10:01 Review of Systems Review of Systems: Constitutional : No Weight loss, No Fever, No Chills ENT/Mouth : No sore throat, No Rhinorrhea Eyes: No Eye Pain, No Swelling Cardiovascular : No Chest Pain, no palpitations Respiratory : No Cough, No Sputum, no shortness of breath Gastrointestinal : no Nausea, No Vomiting, No Diarrhea, No abdominal Pain, no black stools Genitourinary : No Dysuria, No Urinary Frequency Musculoskeletal : No joint pain, No Myalgias, No Joint Swelling Skin : No Skin Lesions, No rash Neuro : No Weakness, No Numbness, No Dizziness, No Headache Psych : No Anxiety/Panic, + Depression Heme/Lymph: No Bruising, No Lymphadenopathy Endocrine : No Polyuria, No Polydipsia All other systems reviewed and are negative [facility] Past Medical History Medical History Acute alcoholic gastritis Alcohol use disorder, severe, dependence Alcoholism Depressed Diabetes Esophageal stricture Fever of unknown origin Gastritis GIB (gastrointestinal bleeding) Head injury HLD (hyperlipidemia) HTN (hypertension) Hypomagnesemia Hypophosphatemia Odynophagia On beta cher at home Pancreatitis Seizures Supraventricular tachycardia Type 2 diabetes mellitus Vitamin D deficiency Surgical History H/O colonoscopy History of esophagogastroduodenoscopy (EGD) Family History Family History Father Diabetes Social History Social History Household Members: Spouse and Other Household Members Other:: homeless at present Housing: Homeless Alcohol intake: current Alcohol intake frequency: 3 or more drinks per day Alc ohol type: beer and hard liquor Smoking Status: Never smoker Second Hand Smoke Exposure: No Use of substances other than those prescribed or required for medical reasons: No Advance Directives: Yes Advance Directives on File: Yes Advance Directives Date on File: 12/12/20 service: No Current occupational status: unemployed and disabled Physical Exam Vital Signs: Vital Signs: Last Vital Signs Temp 98 F 03/17/21 16:18 Pulse 105 H 03/17/21 16:18 Resp 18 03/17/21 16:18 BP 141/63 H 03/17/21 16:18 Pulse Ox 99 03/17/21 16:18 Body Mass Index 25.8 Appearance: Alert. Oriented X3. No acute distress. ETOH+ Eyes: PERRLA, No Nystagmus ENT: Pharynx normal. Oral Mucosa moist Neck: Normal inspection. Neck supple. CVS: Normal heart rate and rhythm. Pulses normal. Respiratory: No respiratory distress. Equal air entry bilateral, no wheezing/rales/rhonchi Abdomen: Soft and nontender. Bowel sounds are present, no mass palpable, no CVA tenderness Skin: Skin warm and dry. Normal skin color. Normal skin turgor. Extremities: No lower extremity edema. No calf tenderness Neuro: Oriented X 3. No motor deficit. No sensory deficit.No cerebellar signs , cranial nerves II-XII intact MDM - Alcohol MDM Narrative Medical decision making narrative: Patient with history of depression and alcohol abuse been here multiple times last week was here 4 times initially said he wants to go to detox when care team came and talked to him he refused to go to detox does not want any help asked for the food and wants to leave, patient walking in steady gait had food in the ER will discharge him home Medical Records Attestation: I reviewed the patient's medical records. Discharge Plan Discharge Clinical Impression: Alcohol abuse Patient Disposition: Home, Self-Care Instructions: Abuse of Alcohol (ED) Additional Instructions: Stop drinking alcohol and follow up with detox Prescriptions: No Action famotidine 40 mg/5 mL (8 mg/mL) suspension 40 mg PO BEDTIME 30 Days Qty: 150 RF: 4 omeprazole 40 mg Capsule,Delayed Release(Dr/Ec) 40 mg PO BID RF: 0 multivitamin Tablet 1 tab PO DAILY RF: 0 trazodone 50 mg Tablet 50 mg PO BEDTIME RF: 0 thiamine HCl (vitamin B1) 100 mg Tablet 100 mg PO DAILY RF: 0 bupropion HCl 100 mg Tablet Sustained-Release 12 Hr 100 mg PO DAILY RF: 0 folic acid 1 mg Tablet 1 mg PO DAILY RF: 0 lisinopril 20 mg Tablet 20 mg PO DAILY RF: 0 magnesium oxide 400 mg (241.3 mg magnesium) Tablet 400 mg PO BIDPC Qty: 60 RF: 0 (DME) blood-glucose meter [OneTouch Ultra2 Meter] Kit See Rx Instructions .ROUTE .MEDSUPPLY Qty: 1 RF: 0 (DME) OneTouch Ultra Blue Test Strip Strip See Rx Instructions .ROUTE .MEDSUPPLY Qty: 100 RF: 0 (DME) lancing device with lancets [OneTouch Delica Plus Lanc Dev] Kit See Rx Instructions .ROUTE .MEDSUPPLY Qty: 1 RF: 0 (DME) lancets [OneTouch Delica Lancets] 33 gauge misc See Rx Instructions .ROUTE .MEDSUPPLY Qty: 100 RF: 0 (DME) pen needle, diabetic 32 gauge x 5/32 needle See Rx Instructions .ROUTE .MEDSUPPLY Qty: 100 RF: 0 naltrexone 50 mg tablet 50 mg PO DAILY Qty: 30 RF: 0 metoprolol tartrate 25 mg tablet 25 mg PO BID Qty: 60 RF: 0 insulin aspart U-100 [Novolog Flexpen U-100 Insulin] 100 unit/mL (3 mL) insulin pen See Rx Instructions .ROUTE .COMPLEX RF: 0 Levemir FlexTouch U-100 Insuln 100 unit/mL (3 mL) insulin pen 35 unit subcut BEDTIME RF: 0
--- NOTE | 2021-03-17 17:14 | PC.NURSE ---
CARE TEAM AND MARKET RESEARCH ASSISTANT TO BEDSIDE TO DISCUSS RESOURCES AVAILABLE TO PATIENT, NOW STATING NOT INTERESTED IN DETOX ATT.
--- NOTE | 2021-03-17 17:37 | MHC.RECOVSUP ---
Recovery Support note: Patient is a 56 year old [place]enegrin speaking male who [place] [facility] [place] due to [place]. This is patient's second visit today. Patient presented at 100 via EMS after being found intoxicated in the community and incontinent of urine. Patient had a POC glucose reading of 301. Patient reported to ED staff that he had fallen. Patient was seen by social work staff and declined all services. Patient refused lab work. Upon admission the second time today (03/17) Patient initially expressed interest in going to detox. This financial underwriter and a Stockholder met with patient to discuss substance use treatment options. Patient reported he wanted to stop drinking however when discussing patient going to detox patient stated what? no, I just want to go home. Discussed alcohol withdrawal with patient and the importance of inpatient support. Patient continues to decline, stating that he wants to leave. When this financial underwriter pointed out that based on previous conversations with patient, he does not have a home to go to, patient reported I just want to go. Informed patient that we are available to assist him in getting help for his alcohol use and if he is interested to inform his nurse. Discussed case with patient's RN, ED provider and CARE Team.
--- NOTE | 2021-03-17 18:02 | PC.NURSE ---
PT S/F IN BED EATING, TOLERATING PO INTAKE W/OUT DIFFICULTY, PT OFFERS NO ACUTE COMPLAINTS.
--- NOTE | 2021-03-17 19:20 | PC.NURSE ---
PT AMBULATED TO BR W/ EVEN STEADY GAIT, CONTINUES TO OFFER NO COMPLAINTS, AWARE/AGREEABLE TO PENDING D/C.
== END 2021-03-17 19:44 | disposition home or self-care (01) ==
PROVIDERS: Emergency Provider Internal Medicine
DX: F10.129 Alcohol abuse with intoxication, unspecified (principal); Y90.9 Presence of alcohol in blood, level not specified; Z79.899 Other long term (current) drug therapy; Z71.41 Alcohol abuse counseling and surveillance of alcoholic
CPT/HCPCS: 99285

== ENCOUNTER 2021-03-17 23:10 | Emergency (ER) | payer MEDICAID, SELFPAY ==
[2021-03-17 23:15] VITALS: BP 132/76; PULSE 118; O2SAT 98
[2021-03-17 23:20] VITALS: BP 139/87; PULSE 104; RESP 18; TEMP 36.7; O2SAT 98; BMI 22.0
[2021-03-17 23:39] LABS: Glucose, Whole Blood 328 mg/dL (60-115)
--- NOTE | 2021-03-18 00:10 | ED_ITS ---
HPI - General Adult General Chief complaint: General Medical Stated complaint: etoh Time Seen by Provider: 03/17/21 23:17 Source: patient Mode of arrival: EMS History of Present Illness HPI narrative: 56-year-old male brought in by EMS after he called them stating that he is ?sick and tired of drinking?. Patient states that he drink ?a lot of vodka?. Related Data Home Medications Medication Instructions Recorded Confirmed bupropion HCl 100 mg PO DAILY 11/13/20 03/13/21 folic acid 1 mg PO DAILY 11/13/20 03/13/21 lisinopril 20 mg PO DAILY 11/13/20 03/13/21 multivitamin 1 tab PO DAILY 11/13/20 03/13/21 thiamine HCl (vitamin B1) 100 mg PO DAILY 11/13/20 03/13/21 trazodone 50 mg PO BEDTIME 11/13/20 03/13/21 omeprazole 40 mg PO BID 12/11/20 03/13/21 insulin aspart U-100 100 unit/mL See Rx Instructions .ROUTE .COMPLEX 02/13/21 03/13/21 (3 mL) subcutaneous pen insulin detemir U-100 100 unit/mL 35 unit SUBCUT BEDTIME ml 02/13/21 03/13/21 (3 mL) subcutaneous pen Previous Rx's Medication Instructions Recorded OneTouch Ultra Blue Test Strip #100 ea 11/16/20 blood-glucose meter [OneTouch #1 ea 11/16/20 Ultra2 Meter] lancets [OneTouch Delica Lancets] #100 ea 11/16/20 lancing device with lancets #1 ea 11/16/20 [OneTouch Delica Plus Lanc Dev] magnesium oxide 400 mg PO BIDPC #60 tab 11/16/20 metoprolol tartrate 25 mg PO BID #60 tab 11/16/20 naltrexone 50 mg PO DAILY #30 tab 11/16/20 pen needle, diabetic #100 ea 11/16/20 famotidine 40 mg/5 mL (8 mg/mL) 40 mg PO BEDTIME 30 Days #150 ml 01/09/21 oral suspension Allergies Allergy/AdvReac Type Severity Reaction Status Date / Time No Known Allergies Allergy Verified 02/14/21 10:01 Review of Systems Review of Systems: Pertinent positives and negatives as stated in HPI 10 point review of systems is otherwise negative. PMFSH Past Medical History Source: nursing notes reviewed Medical History Acute alcoholic gastritis Alcohol use disorder, severe, dependence Alcoholism Depressed Diabetes Esophageal stricture Fever of unknown origin Gastritis GIB (gastrointestinal bleeding) Head injury HLD (hyperlipidemia) HTN (hypertension) Hypomagnesemia Hypophosphatemia Odynophagia On beta cher at home Pancreatitis Seizures Supraventricular tachycardia Type 2 diabetes mellitus Vitamin D deficiency Surgical History H/O colonoscopy History of esophagogastroduodenoscopy (EGD) Family History Family History Father Diabetes Social History Social History Household Members: Spouse and Other Household Members Other:: homeless at present Housing: Homeless Alcohol intake: current Alcohol intake frequency: 3 or more drinks per day Alcohol type: hard liquor Smoking Status: Never smoker Second Hand Smoke Exposure: No Use of substances other than those prescribed or required for medical reasons: No Advance Directives: No Advance Directives Date on File: 12/12/20 service: No Current occupational status: unemployed and disabled Physical Exam Vital Signs: Vital Signs: Last Vital Signs Temp 98.0 F 03/17/21 23:20 Pulse 92 03/18/21 06:00 Resp 15 03/18/21 06:00 BP 140/63 H 03/18/21 06:00 Pulse Ox 97 03/18/21 06:00 Body Mass Index 22.0 VITAL SIGNS: Reviewed. GENERAL: Well developed, well nourished, in no acute distress. HEAD: Normocephalic/atraumatic EYES: PERRLA, EOMI OROPHARYNX: no oral lesions noted, posterior pharynx clear NECK: Supple, no adenopathy LUNGS: Normal breath sounds. No adventitious sounds or accessory muscle use. SpO2<97> CARDIOVASCULAR: Regular rate and rhythm without noted murmurs ABDOMEN: Soft, non-tender, non-distended with bowel sounds. NEUROLOGIC: Alert and oriented x 4. Course Course Course Narrative: 56-year-old male with history and clinical presentation consistent with alcohol dependency and intoxication. Review of all in vestigations consistent with hyperglycemia. BAL-309. Signed out to Dr Polanco. Medical Decision Making Lab Data Result diagrams: 03/18/21 02:52 03/18/21 02:52 Labs: Lab Results 03/17/21 03/18/21 03/18/21 Range/Units 23:33 02:52 02:52 WBC 10.3 (4.8-10.8) X10*3/uL RBC 4.30 L (4.60-5.80) X10*6/uL Hgb 10.6 L (14.0-18.0) g/dl Hct 32.7 L (42-52) % MCV 76.0 L (80-98) fL MCH 24.7 L (27.0-33.0) pg MCHC 32.4 (31.0-36.0) g/dl RDW 17.6 H (11.0-16.0) % Plt Count 508 H (160-400) X10*3/uL MPV 8.4 L (9.4-12.4) fL Immature Gran % (Auto) 0.4 (0.0-0.4) % Neut % (Auto) 75.0 H (45-73) % Lymph % (Auto) 17.9 L (20-40) % Nuckolls % (Auto) 4.9 (2-11) % Eos % (Auto) 1.1 (0-4) % Baso % (Auto) 0.7 (0-2) % Lymph # (Auto) 1.9 (1.2-4.9) X10*3/uL Nuckolls # (Auto) 0.5 (0.1-1.2) X10*3/uL Eos # (Auto) 0.1 (0.0-0.4) X10*3/uL Baso # (Auto) 0.1 (0.0-0.2) X10*3/uL Abs Immat Gran (auto) 0.04 H (0.00-0.03) X10*3/uL Absolute Neuts (auto) 7.8 (2.0-8.3) X10*3/uL Absolute Nucleated RBC 0.000 (0.0-0.012) X10*3/uL Nucleated RBC % (auto) 0.0 (0.0-0.2) /100WBC Sodium 137 (135-145) mmol/L Potassium 4.5 (3.3-5.1) mmol/L Chloride 94 L (96-108) mmol/L Carbon Dioxide 27 (22-29) mmol/L Anion Gap 21 H (12-20) BUN 15 (9-16) mg/dL Creatinine 0.94 (0.5-1.4) mg/dL Estim Creat Clear Calc 81.6 Estimated GFR > 60 POC Glucose 328 H (60-115) mg/dL Random Glucose 301 H D (60-115) mg/dL Calcium 8.8 (8.4-10.2) mg/dL Total Bilirubin 0.4 (0.0-1.0) mg/dL AST 28 (5-37) U/L ALT 20 (0-40) U/L Alkaline Phosphatase 146 H (39-117) U/L Total Protein 7.2 (6.5-8.0) g/dL Albumin 3.4 L (3.5-5.0) g/dL Ethyl Alcohol mg/dL Acetone, Qual Small H (Negative) 03/18/21 03/18/21 Range/Units 02:52 04:59 WBC (4.8-10.8) X10*3/uL RBC (4.60-5.80) X10*6/uL Hgb (14.0-18.0) g/dl Hct (42-52) % MCV (80-98) fL MCH (27.0-33.0) pg MCHC (31.0-36.0) g/dl RDW (11.0-16.0) % Plt Count (160-400) X10*3/uL MPV (9.4-12.4) fL Immature Gran % (Auto) (0.0-0.4) % Neut % (Auto) (45-73) % Lymph % (Auto) (20-40) % Nuckolls % (Auto) (2-11) % Eos % (Auto) (0-4) % Baso % (Auto) (0-2) % Lymph # (Auto) (1.2-4.9) X10*3/uL Nuckolls # (Auto) (0.1-1.2) X10*3/uL Eos # (Auto) (0.0-0.4) X10*3/uL Baso # (Auto) (0.0-0.2) X10*3/uL Abs Immat Gran (auto) (0.00-0.03) X10*3/uL Absolute Neuts (auto) (2.0-8.3) X10*3/uL Absolute Nucleated RBC (0.0-0.012) X10*3/uL Nucleated RBC % (auto) (0.0-0.2) /100WBC Sodium (135-145) mmol/L Potassium (3.3-5.1) mmol/L Chloride (96-108) mmol/L Carbon Dioxide (22-29) mmol/L Anion Gap (12-20) BUN (9-16) mg/dL Creatinine (0.5-1.4) mg/dL Estim Creat Clear Calc Estimated GFR POC Glucose 227 H (60-115) mg/dL Random Glucose (60-115) mg/dL Calcium (8.4-10.2) mg/dL Total Bilirubin (0.0-1.0) mg/dL AST (5-37) U/L ALT (0-40) U/L Alkaline Phosphatase (39-117) U/L Total Protein (6.5-8.0) g/dL Albumin (3.5-5.0) g/dL Ethyl Alcohol 309 H* mg/dL Acetone, Qual (Negative) Discharge Plan Discharge Clinical Impression: Alcohol intoxication Prescriptions: No Action famotidine 40 mg/5 mL (8 mg/mL) suspension 40 mg PO BEDTIME 30 Days Qty: 150 RF: 4 omeprazole 40 mg Capsule,Delayed Release(Dr/Ec) 40 mg PO BID RF: 0 multivitamin Tablet 1 tab PO DAILY RF: 0 trazodone 50 mg Tablet 50 mg PO BEDTIME RF: 0 thiamine HCl (vitamin B1) 100 mg Tablet 100 mg PO DAILY RF: 0 bupropion HCl 100 mg Tablet Sustained-Release 12 Hr 100 mg PO DAILY RF: 0 folic acid 1 mg Tablet 1 mg PO DAILY RF: 0 lisinopril 20 mg Tablet 20 mg PO DAILY RF: 0 magnesium oxide 400 mg (241.3 mg magnesium) Tablet 400 mg PO BIDPC Qty: 60 RF: 0 (DME) blood-glucose meter [[employer] Ultra2 Meter] Kit See Rx Instructions .ROUTE .MEDSUPPLY Qty: 1 RF: 0 (DME) OneTouch Ultra Blue Test Strip Strip See Rx Instructions .ROUTE .MEDSUPPLY Qty: 100 RF: 0 (DME) lancing device with lancets [OneTouch Delica Plus Lanc Dev] Kit See Rx Instructions .ROUTE .MEDSUPPLY Qty: 1 RF: 0 (DME) lancets [OneTouch Delica Lancets] 33 gauge misc See Rx Instructions .ROUTE .MEDSUPPLY Qty: 100 RF: 0 (DME) pen needle, diabetic 32 gauge x 5/32 needle See Rx Instructions .ROUTE .MEDSUPPLY Qty: 100 RF: 0 naltrexone 50 mg tablet 50 mg PO DAILY Qty: 30 RF: 0 metoprolol tartrate 25 mg tablet 25 mg PO BID Qty: 60 RF: 0 insulin aspart U-100 [Novolog Flexpen U-100 Insulin] 100 unit/mL (3 mL) insulin pen See Rx Instructions .ROUTE .COMPLEX RF: 0 Levemir FlexTouch U-100 Insuln 100 unit/mL (3 mL) insulin pen 35 unit subcut BEDTIME RF: 0
--- NOTE | 2021-03-18 00:39 | PC.NURSE ---
PT REFUSED BY 3 PEOPLE TO HAVE HIS BLOOD WORK DRAWN.
--- NOTE | 2021-03-18 00:58 | PC.NURSE ---
PT VOMITING CLEAR. PROVIDER MADE AWARE.
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
[2021-03-18 01:20] VITALS: BP 166/86; PULSE 109; RESP 18; O2SAT 98
[2021-03-18 02:56] VITALS: BP 154/86; PULSE 101; RESP 16; O2SAT 98
[2021-03-18 02:56] LABS: Basophils Absolute Auto 0.1 X10*3/uL (0.0-0.2); Basophils Percent Auto 0.7 % (0-2); Eosinophils Absolute Auto 0.1 X10*3/uL (0.0-0.4); Eosinophils Percent Auto 1.1 % (0-4); Hematocrit 32.7 % (42-52); Hemoglobin 10.6 g/dl (14.0-18.0); Imm Gran Abs Auto 0.04 X10*3/uL (0.00-0.03); Imm Gran Pct Auto 0.4 % (0.0-0.4); Lymphocytes Absolute Auto 1.9 X10*3/uL (1.2-4.9); Lymphocytes Percent Auto 17.9 % (20-40); MANUAL DIFF FLAG NO; Mean Corpuscular HGB Conc 32.4 g/dl (31.0-36.0); Mean Corpuscular Hemoglobin 24.7 pg (27.0-33.0); Mean Platelet Volume 8.4 fL (9.4-12.4); Monocytes Absolute Auto 0.5 X10*3/uL (0.1-1.2); Monocytes Percent Auto 4.9 % (2-11); Neutrophils Absolute Auto 7.8 X10*3/uL (2.0-8.3); Platelet Count 508 X10*3/uL (160-400); Red Cell Distribution Width 17.6 % (11.0-16.0); White Blood Count 10.3 X10*3/uL (4.8-10.8)
[2021-03-18 03:20] LABS: Ethanol 309 mg/dL
[2021-03-18 03:25] LABS: Acetone, serum QL Small (Negative); Alanine Aminotransferase 20 U/L (0-40); Albumin Level 3.4 g/dL (3.5-5.0); Alkaline Phosphatase 146 U/L (39-117); Anion Gap 21 (12-20); Aspartate Amino Transferase 28 U/L (5-37); Bilirubin Total 0.4 mg/dL (0.0-1.0); Blood Urea Nitrogen 15 mg/dL (9-16); Calcium 8.8 mg/dL (8.4-10.2); Carbon Dioxide 27 mmol/L (22-29); Chloride 94 mmol/L (96-108); Creatinine Clr Calc Pharmacy 81.6; Estimated Glomerular Filt Rate > 60; Glucose Random 301 mg/dL (60-115); Potassium 4.5 mmol/L (3.3-5.1); Sodium 137 mmol/L (135-145); Total Protein 7.2 g/dL (6.5-8.0)
[2021-03-18] MEDS: 0.9 % Sodium Chloride 2,000 ML 999 ML IV (03:33)
[2021-03-18 05:04] LABS: Glucose, Whole Blood 227 mg/dL (60-115)
[2021-03-18 06:00] VITALS: BP 140/63; PULSE 92; RESP 15; O2SAT 97
--- NOTE | 2021-03-18 07:28 | PC.NURSE ---
pt refusing blood draw
--- NOTE | 2021-03-18 08:41 | PC.NURSE ---
iv removed- pt requesting to leave. md cazares
== END 2021-03-18 08:42 | disposition home or self-care (01) ==
PROVIDERS: Student in an Organized Health Care Education/Training Program; Emergency Provider Emergency Medicine
DX: F10.129 Alcohol abuse with intoxication, unspecified (principal); Y90.8 Blood alcohol level of 240 mg/100 ml or more; Z71.41 Alcohol abuse counseling and surveillance of alcoholic
CPT/HCPCS: 36415; 80053; 80320; 82009; 82947; 85025; 99284

== ENCOUNTER 2021-03-18 18:19 | Emergency (ER) | payer MEDICAID, SELFPAY ==
[2021-03-18 18:25] VITALS: BP 177/74; PULSE 112; RESP 16; TEMP 37.1; O2SAT 98; BMI 25.0
--- NOTE | 2021-03-18 19:02 | ED.ALCOHOL ---
HPI - Alcohol General Chief Complaint: ETOH/Substance Use Stated Complaint: ETOH Time Seen by Provider: 03/18/21 18:53 Source: patient Mode of arrival: EMS Limitations: no limitations History of Present Illness HPI narrative: Patient is a 56-year-old male with a significant past medical history who was BIBA intoxicated. POC 470. Patient sleeping but arousable, his only complaint was abdominal pain, will reassess once he is more wakeful. I spoke with the care team, patient is a Section 35, our plan is to keep them overnight and call the police in the morning. Related Data Home Medications Medication Instructions Recorded Confirmed bupropion HCl 100 mg PO DAILY 11/13/20 03/18/21 folic acid 1 mg PO DAILY 11/13/20 03/18/21 lisinopril 20 mg PO DAILY 11/13/20 03/18/21 multivitamin 1 tab PO DAILY 11/13/20 03/18/21 thiamine HCl (vitamin B1) 100 mg PO DAILY 11/13/20 03/18/21 trazodone 50 mg PO BEDTIME 11/13/20 03/18/21 omeprazole 40 mg PO BID 12/11/20 03/18/21 insulin aspart U-100 100 unit/mL See Rx Instructions .ROUTE .COMPLEX 02/13/21 03/18/21 (3 mL) subcutaneous pen insulin detemir U-100 100 unit/mL 40 unit SUBCUT BEDTIME ml 02/13/21 03/18/21 (3 mL) subcutaneous pen Previous Rx's Medication Instructions Recorded OneTouch Ultra Blue Test Strip #100 ea 11/16/20 blood-glucose meter [OneTouch #1 ea 11/16/20 Ultra2 Meter] lancets [OneTouch Delica Lancets] #100 ea 11/16/20 lancing device with lancets #1 ea 11/16/20 [OneTouch Delica Plus Lanc Dev] magnesium oxide 400 mg PO BIDPC #60 tab 11/16/20 metoprolol tartrate 25 mg PO BID #60 tab 11/16/20 naltrexone 50 mg PO DAILY #30 tab 11/16/20 pen needle, diabetic #100 ea 11/16/20 famotidine 40 mg/5 mL (8 mg/mL) 40 mg PO BEDTIME 30 Days #150 ml 01/09/21 oral suspension Allergies Allergy/AdvReac Type Severity Reaction Status Date / Time No Known Allergies Allergy Verified 02/14/21 10:01 Review of Systems Review of Systems: Yes Other (Unable to due to alcohol intoxication) [facility] Past Medical History Medical History Acute alcoholic gastritis Alcohol use disorder, severe, dependence Alcoholism Depressed Diabetes Esophageal stricture Fever of unknown origin Gastritis GIB (gastrointestinal bleeding) Head injury HLD (hyperlipidemia) HTN (hypertension) Hypomagnesemia Hypophosphatemia Odynophagia On beta cher at home Pancreatitis Seizures Supraventricular tachycardia Type 2 diabetes mellitus Vitamin D deficiency Surgical History H/O colonoscopy History of esophagogastroduodenoscopy (EGD) Family History Family History Father Diabetes Social History Social History Household Members: Spouse and Other Household Members Other:: homeless at present Housing: Homeless Are you a primary residential care facility manager to a significant other at home: No Alcohol intake: current Alcohol intake frequency: 3 or more drinks per day Alcohol type: hard liquor Smoking Status: Never smoker Second Hand Smoke Exposure: No Advance Directives: Yes Advance Directives on File: Yes Advance Directives Date on File: 12/12/20 service: No Current occupational status: unemployed and disabled Physical Exam Vital Signs: Vital Signs: Last Vital Signs Temp 98.8 F 03/18/21 18:25 Pulse 110 H 03/18/21 19:54 Resp 16 03/18/21 19:54 BP 176/83 H 03/18/21 19:54 Pulse Ox 97 03/18/21 19:54 Body Mass Index 25.0 Const: General: intoxicated appearing Nutritional Appearance: average body habitus Orientation/consciousness: Other orientation findings (sleeping but arousable) HENMT: Head: Yes normal to inspection, Yes No palpable skull fracture present, Yes normocephalic and Yes atraumatic General nose exam: Normal external nose present Face and sinus: Yes normal facial exam Eyes: General: appearance normal, both eyes and all related structures Resp: Effort & Inspection: normal respiratory effort Cardio: Rate: tachycardic Skin: General skin exam: no rashes or lesions noted Course Course Course Narrative: Patient clinically intoxicated, will get ETOH level and U tox. We will give 10 units of insulin, I will order labs, however patient is very difficult stick, very difficult to get a line in him so giving him fluids is highly unlikely. Patient is asking for water so we will allow him to hydrate that way. Per care team, Patient is a Section 35, will keep overnight until the courts are open in the morning. At that point we will call the police to have him brought in. Reevaluation(s) Reevaluation #1: When nurse was seen at the [facility], talking about why we needed labs mentioning DKA, patient expressed interest in killing himself and wanting to . Will get consult from [facility] an make sure patient has sitter. Time: 20:31 Reevaluation #2: Patient's point of care down to 264, will give 5 more units of insulin and recheck his blood sugar in 2 hours. Time: 00:02 MDM - Alcohol Lab Data Labs: Lab Results 03/18/21 03/18/21 03/18/21 Range/Units 19:30 20:08 23:31 POC Glucose 446 H* 264 H (60-115) mg/dL Urine Opiates Screen Not Detected (Not Detect) Ur Barbiturates Screen POSITIVE H (Not Detect) Ur Phencyclidine Scrn Not Detected (Not Detect) Ur Amphetamines Screen Not Detected (Not Detect) U Benzodiazepines Scrn Not Detected (Not Detect) Urine Cocaine Screen Not Detected (Not Detect) U Marijuana (THC) Screen Not Detected (Not Detect) Discharge Plan Discharge Clinical Impression: Suicidal ideations Alcohol intoxication in active alcoholic Qualifiers: Complication of substance-induced condition: uncomplicated Qualified Code(s): F10.220 - Alcohol dependence with intoxication, uncomplicated Prescriptions: No Action famotidine 40 mg/5 mL (8 mg/mL) suspension 40 mg PO BEDTIME 30 Days Qty: 150 RF: 4 omeprazole 40 mg Capsule,Delayed Release(Dr/Ec) 40 mg PO BID RF: 0 multivitamin Tablet 1 tab PO DAILY RF: 0 trazodone 50 mg Tablet 50 mg PO BEDTIME RF: 0 thiamine HCl (vitamin B1) 100 mg Tablet 100 mg PO DAILY RF: 0 bupropion HCl 100 mg Tablet Sustained-Release 12 Hr 100 mg PO DAILY RF: 0 folic acid 1 mg Tablet 1 mg PO DAILY RF: 0 lisinopril 20 mg Tablet 20 mg PO DAILY RF: 0 magnesium oxide 400 mg (241.3 mg magnesium) Tablet 400 mg PO BIDPC Qty: 60 RF: 0 (DME) blood-glucose meter [Right[employer] Ultra2 Meter] Kit See Rx Instructions .ROUTE .MEDSUPPLY Qty: 1 RF: 0 (DME) OneTouch Ultra Blue Test Strip Strip See Rx Instructions .ROUTE .MEDSUPPLY Qty: 100 RF: 0 (DME) lancing device with lancets [[employer] Delica Plus Lanc Dev] Kit See Rx Instructions .ROUTE .MEDSUPPLY Qty: 1 RF: 0 (DME) lancets [[employer] Delica Lancets] 33 gauge misc See Rx Instructions .ROUTE .MEDSUPPLY Qty: 100 RF: 0 (DME) pen needle, diabetic 32 gauge x 5/32 needle See Rx Instructions .ROUTE .MEDSUPPLY Qty: 100 RF: 0 naltrexone 50 mg tablet 50 mg PO DAILY Qty: 30 RF: 0 metoprolol tartrate 25 mg tablet 25 mg PO BID Qty: 60 RF: 0 insulin aspart U-100 [Novolog Flexpen U-100 Insulin] 100 unit/mL (3 mL) insulin pen See Rx Instructions .ROUTE .COMPLEX RF: 0 Levemir FlexTouch U-100 Insuln 100 unit/mL (3 mL) insulin pen 40 unit subcut BEDTIME RF: 0
--- NOTE | 2021-03-18 19:13 | MHC.RECOVSUP ---
? Reason for consult Support o Current location: ED22 o Identified substance use concern: Alcohol ? Intervention: None ? Additional information: Patient refused any services..
[2021-03-18 19:33] LABS: Glucose, Whole Blood 446 mg/dL (60-115)
--- NOTE | 2021-03-18 19:37 | PC.NURSE ---
Pt aaox4, resting on stretcher in NAD, breathing with ease on RA. Pt requesting PO fluids, provided. Pt POC 446, Amber BELTRÁN made aware. Plan for SQ insulin and increased PO fluids. [employer] made aware of need for ethanol blood draw and UDS. Pt stretcher in lowest locked position, rails raised, in front of nurses' station, easily observed. Pt refusing blood draw, Amber BELTRÁN made aware.
--- NOTE | 2021-03-18 19:42 | MHC.CARE ---
S[address] for [address] mandated, facility-based, substance use treatment in progress. If pt is still in the ED in the morning, [place] [employer] should be called to pick pt up on active warrant and be brought to court. Pt is not aware of the Sect 35 and cannot be held if he is asking for discharge. Staff is advised not to inform pt of the Sect 35. A Sect 12 cannot be used to contain pt to the ED. ED charge nurse and provider are aware.
[2021-03-18] MEDS: Insulin Lispro 100 UNIT/ML 3 ML VIAL 10 UNIT SUBCUT (19:44)
[2021-03-18 19:54] VITALS: BP 176/83; PULSE 110; RESP 16; O2SAT 97
--- NOTE | 2021-03-18 19:55 | PC.NURSE ---
This RN to bedside to medicate with lispro. This RN asks pt why won't you let us draw your blood? Pt asks what blood draw is for, this RN educates pt that blood draw would show if patient is in DKA, explains DKA to patient, and informs pt that blood draw would include chemistry and blood count as well. Pt gets tearful, states I just want to . I don't want to be like this anymore. Checking my sugar, you know, I'm tired of this life. Pt reassured that his life is worth living. pt denies plan to harm self. Sitter to be initiated. Amber to made aware.
--- NOTE | 2021-03-18 20:09 | PC.NURSE ---
Stephanie Salgado RN made aware of pt's SI statements, Amber BELTRÁN made aware. Per Amber, plan for sitter and to keep pt in hallway bed. Amber to order [facility] consult.
[2021-03-18 20:43] LABS: Amphetamine Screen Urine Not Detected (Not Detect); Barbiturates, Urine POSITIVE (Not Detect); Benzodiazepines Screen Urine Not Detected (Not Detect); Cannabinoid Screen Urine Not Detected (Not Detect); Cocaine Screen Urine Not Detected (Not Detect); Opiate Screen Urine Not Detected (Not Detect); Phencyclidine Screen Urine Not Detected (Not Detect)
[2021-03-18 23:36] LABS: Glucose, Whole Blood 264 mg/dL (60-115)
[2021-03-18] MEDS: Insulin Lispro 100 UNIT/ML 3 ML VIAL SUBCUT (23:52)
--- NOTE | 2021-03-18 23:53 | PC.NURSE ---
Patient alert and oriented, patient refused lab draw, POC was 264 @ 2331, provider notified/ordered insulin coverage of 5 units/administered as ordered/compliant, will continue to monitor.
[2021-03-19] VITALS: BP 132/69; PULSE 107; RESP 18; TEMP 37.3; O2SAT 97
[2021-03-19 01:49] LABS: Glucose, Whole Blood 160 mg/dL (60-115)
--- NOTE | 2021-03-19 02:11 | MHC.CARE ---
CARE team met with pt to discuss the suicidal statements he made earlier in the evening. Pt denied wanting to harm himself, stating that it's the withdrawals that are making him feel that way. When asked what the withdrawals are like, he spoke about the pain and discomfort and that he hears voices. Pt declined wanting to stop drinking, stating I really could use a drink right now. This senior mortgage underwriter spoke with pt about having a covid swab and a CIWA scale done, with the intention of medicating pt to manage withdrawal symptoms and help him rest. Pt was encouraged to remain in the hospital until the morning so his withdrawal symptoms can be monitored. Pt agreeable at this time. This senior mortgage underwriter contacted [place] re: when courts are open. Officer recommended calling around 8:30am to have him picked up on the warrant, if pt is still in the ED at that time.
[2021-03-19] MEDS: LORazepam 1 MG TABLET 2 MG PO ×3 (02:22→11:59)
--- NOTE | 2021-03-19 02:26 | PC.NURSE ---
Patient reported experiencing withdrawal, CIWA assessed scored 10, provider notified/ordered Ativan 2 mg/administered as ordered/pending effect, will continue to monitor.
[2021-03-19 02:37] LABS: COVID-19 Test Negative (Negative); IDNOW Serial# 9DD0AD1C
[2021-03-19] MEDS: Omeprazole 40 MG CAPSULE.DR PO (05:42)
[2021-03-19 06:34] LABS: Glucose, Whole Blood 207 mg/dL (60-115)
[2021-03-19 06:57] VITALS: BP 133/72; PULSE 116; RESP 16; TEMP 37.1; O2SAT 96
--- NOTE | 2021-03-19 07:20 | PC.NURSE ---
report from Ramiro vyas. Pt with poor appetite and refusing breakfast at this time, insulin held. Pt noted to be tremulous and slightly tachycardicat 116, aware and pt medicated with ativan 2mg.
[2021-03-19 10:16] VITALS: BP 144/79; PULSE 116
[2021-03-19 10:25] VITALS: BP 144/79; PULSE 116
[2021-03-19] MEDS: Metoprolol Tartrate 25 MG TABLET PO (10:25)
[2021-03-19] MEDS: Sucralfate Oral Suspension 1 GM/10 ML ORAL.SUSP PO (10:25)
[2021-03-19] MEDS: Thiamine HCL 100 MG TABLET PO (10:25)
[2021-03-19] MEDS: Magnesium Oxide 400 MG TABLET PO (10:25)
[2021-03-19] MEDS: lisinopriL 20 MG TABLET PO (10:25)
[2021-03-19] MEDS: LORazepam 0.5 MG TABLET 2 MG PO (11:01)
[2021-03-19] MEDS: diphenhydrAMINE HCL 25 MG TABLET 50 MG PO (11:01)
--- NOTE | 2021-03-19 11:08 | PC.NURSE ---
Per CARE team, pt is able to go at any time with HPD for section 35. Pt continues to be tremulous and tachycardic as charted. Provider Lluvia aware and is not comfortable with discharging pt at this time, plan to medicate with ativan and benedryl to assess effect. Pt medicated with prn ativan and benedryl as charted. CIWA 5 at this time, pt not very forthcoming when asked about symptoms of withdrawal, I feel bad and would not elaborate. Pt reports continued SI, no plan, vague.
[2021-03-19 11:36] VITALS: BP 128/63; PULSE 91; RESP 18; O2SAT 98
[2021-03-19 12:00] LABS: Glucose, Whole Blood 237 mg/dL (60-115)
--- NOTE | 2021-03-19 12:48 | PC.NURSE ---
ASSUMED CARE AT 11, REASSESSED PATIENT STATED HE WAS NAUSEOUS AND NOT FEELING WELL. STILL WITH SLIGHT TREMOR, VS RECHECKED AND IMPROVED. REPORTED VS AND PATIENT CONDITION TO JEREL AMADOR. ADDITIONAL ATIVAN AND ZOFRAN ORDERED AND PATIENT CLEARED FOR DISCHARGE ON SECTION 35. PATIENT REPORTED IMPROVEMENT OF SYMPTOMS WITH MEDICATION. [employer] CALLED AND TWO OFFICERS CAME TO [employer]IST PATIENT FOR TRANSPORT FOR SECTION 35 HEARING. PATIENT CALM AND COOPERATIVE WITH HPD AND STAFF THROUGHOUT PROCESS.
== END 2021-03-19 13:27 ==
PROVIDERS: Emergency Medicine; Physician Assistant; Emergency Provider Internal Medicine
DX: R45.851 Suicidal ideations (principal); E11.65 Type 2 diabetes mellitus with hyperglycemia; F10.220 Alcohol dependence with intoxication, uncomplicated; F10.230 Alcohol dependence with withdrawal, uncomplicated; Y90.9 Presence of alcohol in blood, level not specified; Z20.822 Contact with and (suspected) exposure to COVID-19; R00.0 Tachycardia, unspecified; G25.2 Other specified forms of tremor; E78.5 Hyperlipidemia, unspecified; I10 Essential (primary) hypertension; Z79.02 Long term (current) use of antithrombotics/antiplatelets; Z79.4 Long term (current) use of insulin; Z79.899 Other long term (current) drug therapy; Z59.0 Homelessness
CPT/HCPCS: 36415; 80307; 82947; 87635; 99285; Q0163

== ENCOUNTER 2021-03-29 20:34 | Emergency (ER) | payer MEDICAID, SELFPAY ==
--- NOTE | ~2021-03-29 | XR_ITS ---
EXAMINATION: XR CHEST CLINICAL INFORMATION: Cough COMPARISON: 03/06/2021 TECHNIQUE: 2 views of the chest were obtained. FINDINGS: Lungs are clear. No focal consolidation or mass. Normal pulmonary vascularity. No pleural effusion or pneumothorax. Normal heart size. Degenerative changes of the bilateral shoulders and acromioclavicular joints. Chronic deformity of the left scapula. XR/XR chest 2V IMPRESSION: No acute pulmonary disease. No significant change from prior study.
[2021-03-29 20:41] VITALS: BP 131/71; PULSE 97; RESP 20; TEMP 37.8; O2SAT 99; BMI 21.7
--- NOTE | 2021-03-29 21:07 | ED.NAVMDI ---
HPI - Nausea/Vomiting/Diarrhea General Chief complaint: Nausea/Vomiting/Diarrhea Stated complaint: Vomiting Time Seen by Provider: 03/29/21 21:04 Source: patient Mode of arrival: ambulatory History of Present Illness HPI Narrative: This is a 56-year-old male well-known to the ER in presents under [place] [address] with reports of epigastric pain and associated nausea and vomiting (nonbloody) for 1 week and denies any fevers, chills, diarrhea but reports epigastric pain but denies urinary symptoms Related Data Home Medications Medication Instructions Recorded Confirmed bupropion HCl 1 tab PO QAM 03/19/21 03/19/21 famotidine 5 ml PO BEDTIME 03/19/21 03/19/21 folic acid 1 tab PO QAM 03/19/21 03/19/21 insulin aspart U-100 [Novolog 8 unit SUBCUT TID 03/19/21 03/19/21 Flexpen U-100 Insulin] insulin detemir U-100 [Levemir 40 unit SUBCUT QPM 03/19/21 03/19/21 FlexTouch U-100 Insuln] lisinopril 1 tab PO QAM 03/19/21 03/19/21 magnesium oxide 1 tab PO BID 03/19/21 03/19/21 metoprolol tartrate 1 tab PO BID 03/19/21 03/19/21 multivitamin 1 tab PO QAM 03/19/21 03/19/21 naltrexone 1 tab PO QAM 03/19/21 03/19/21 omeprazole 1 tab PO BID 03/19/21 03/19/21 sucralfate [Carafate] 10 ml PO BID 03/19/21 03/19/21 thiamine HCl (vitamin B1) 1 tab PO QAM 03/19/21 03/19/21 trazodone 1 tab PO BEDTIME 03/19/21 03/19/21 Previous Rx's Medication Instructions Recorded Diagnostic Imaging InternationalTouch Ultra Blue Test Strip #100 ea 11/16/20 blood-glucose meter [OneTouch #1 ea 11/16/20 Ultra2 Meter] lancets [OneTouch Delica Lancets] #100 ea 11/16/20 lancing device with lancets #1 ea 11/16/20 [OneTouch Delica Plus Lanc Dev] sucralfate [Carafate] 10 ml PO BID #420 ml 03/30/21 Allergies Allergy/AdvReac Type Severity Reaction Status Date / Time No Known Allergies Allergy Verified 03/29/21 20:55 Review of Systems Review of Systems: Pertinent positives and negatives as stated in HPI 10 point review of systems is otherwise negative. [facility] Past Medical History Source: nursing notes reviewed Medical History Acute alcoholic gastritis Alcohol use disorder, severe, dependence Alcoholism Depressed Diabetes Esophageal stricture Fever of unknown origin Gastritis GIB (gastrointestinal bleeding) Head injury Hepatitis C HLD (hyperlipidemia) HTN (hypertension) Hypomagnesemia Hypophosphatemia Odynophagia On beta cher at home Pancreatitis Seizures Supraventricular tachycardia Type 2 diabetes mellitus Vitamin D deficiency Surgical History H/O colonoscopy History of esophagogastroduodenoscopy (EGD) Family History Family History Father Diabetes Social History Social History Household Members: Spouse and Other Household Members Other:: homeless at present Housing: Homeless Alcohol intake: current Alcohol intake frequency: 0-2 drinks per day Alcohol type: hard liquor Smoking Status: Never smoker Second Hand Smoke Exposure: No Use of substances other than those prescribed or required for medical reasons: No Advance Directives: Yes Advance Directives on File: Yes Advance Directives Date on File: 12/12/20 service: No Current occupational status: unemployed and disabled Physical Exam Vital Signs: Vital Signs: Last Vital Signs Temp 97.9 F 03/30/21 00:53 Pulse 87 03/30/21 00:53 Resp 16 03/30/21 00:53 BP 144/76 H 03/30/21 00:53 Pulse Ox 99 03/30/21 00:53 Body Mass Index 21.7 VITAL SIGNS: Reviewed. GENERAL: Well developed, well nourished, in no acute distress. HEAD: Normocephalic/atraumatic EYES: PERRLA, EOMI EARS: Ext canals without abnormality NOSE: Nares patent bilateral OROPHARYNX: no oral lesions noted, posterior pharynx clear NECK: Supple, no adenopathy LUNGS: Normal breath sounds. No adventitious sounds or accessory muscle use. SpO2<99> CARDIOVASCULAR: Regular rate and rhythm without noted murmurs ABDOMEN: Soft, mild tenderness to epigastric without rebound, non-distended with bowel sounds. NEUROLOGIC: Alert and oriented x 4. Course Course Course Narrative: [id number]-old male with history and clinical presentation consistent with gastritis, ulcer secondary to patient's alcohol dependence but will rule out other etiologies of symptoms given that he has an elevated temperature. Review of all investigations negative for any acute changes from baseline. Patient was provided with a GI cocktail, Carafate and has had some improvement in his symptoms and was easily tolerated. Suspect that patient has underlying alcoholic gastritis and even possibly an ulcer and he will be discharged on a course of Carafate with instructions to follow up with the primary care provider for further evaluation. MDM - Nausea/Vomiting/Diarrhea Lab Data Result diagrams: 03/29/21 22:11 03/30/21 00:27 Labs: Lab Results 03/29/21 03/29/21 03/29/21 Range/Units 21:27 22:11 22:11 WBC 10.9 H (4.8-10.8) X10*3/uL RBC 3.91 L (4.60-5.80) X10*6/uL Hgb 9.6 L (14.0-18.0) g/dl Hct 30.9 L (42-52) % MCV 79.0 L (80-98) fL MCH 24.6 L (27.0-33.0) pg MCHC 31.1 (31.0-36.0) g/dl RDW 17.2 H (11.0-16.0) % Plt Count 481 H (160-400) X10*3/uL MPV 9.0 L (9.4-12.4) fL Immature Gran % (Auto) 1.0 H (0.0-0.4) % Neut % (Auto) 65.8 (45-73) % Lymph % (Auto) 15.4 L (20-40) % Luna % (Auto) 14.4 H (2-11) % Eos % (Auto) 2.8 (0-4) % Baso % (Auto) 0.6 (0-2) % Lymph # (Auto) 1.7 (1.2-4.9) X10*3/uL Luna # (Auto) 1.6 H (0.1-1.2) X10*3/uL Eos # (Auto) 0.3 (0.0-0.4) X10*3/uL Baso # (Auto) 0.1 (0.0-0.2) X10*3/uL Abs Immat Gran (auto) 0.11 H (0.00-0.03) X10*3/uL Absolute Neuts (auto) 7.2 (2.0-8.3) X10*3/uL Absolute Nucleated RBC 0.000 (0.0-0.012) X10*3/uL Nucleated RBC % (auto) 0.0 (0.0-0.2) /100WBC Smear Tech's Comments VERIFIED Sodium (135-145) mmol/L Potassium (3.3-5.1) mmol/L Chloride (96-108) mmol/L Carbon Dioxide (22-29) mmol/L Anion Gap (12-20) BUN (9-16) mg/dL Creatinine (0.5-1.4) mg/dL Estim Creat Clear Calc Estimated GFR POC Glucose 149 H (60-115) mg/dL Random Glucose (60-115) mg/dL Lactic Acid 1.0 (0.5-2.0) mmol/L Calcium (8.4-10.2) mg/dL Magnesium (1.6-2.6) mg/dL Total Bilirubin (0.0-1.0) mg/dL AST (5-37) U/L ALT (0-40) U/L Alkaline Phosphatase (39-117) U/L Total Protein (6.5-8.0) g/dL Albumin (3.5-5.0) g/dL Lipase (8-78) U/L Acetone, Qual (Negative) 03/30/21 03/30/21 Range/Units 00:27 00:27 WBC (4.8-10.8) X10*3/uL RBC (4.60-5.80) X10*6/uL Hgb (14.0-18.0) g/dl Hct (42-52) % MCV (80-98) fL MCH (27.0-33.0) pg MCHC (31.0-36.0) g/dl RDW (11.0-16.0) % Plt Count (160-400) X10*3/uL MPV (9.4-12.4) fL Immature Gran % (Auto) (0.0-0.4) % Neut % (Auto) (45-73) % Lymph % (Auto) (20-40) % Luna % (Auto) (2-11) % Eos % (Auto) (0-4) % Baso % (Auto) (0-2) % Lymph # (Auto) (1.2-4.9) X10*3/uL Luna # (Auto) (0.1-1.2) X10*3/uL Eos # (Auto) (0.0-0.4) X10*3/uL Baso # (Auto) (0.0-0.2) X10*3/uL Abs Immat Gran (auto) (0.00-0.03) X10*3/uL Absolute Neuts (auto) (2.0-8.3) X10*3/uL Absolute Nucleated RBC (0.0-0.012) X10*3/uL Nucleated RBC % (auto) (0.0-0.2) /100WBC Smear Tech's Comments Sodium 132 L (135-145) mmol/L Potassium 4.9 (3.3-5.1) mmol/L Chloride 100 (96-108) mmol/L Carbon Dioxide 22 (22-29) mmol/L Anion Gap 15 (12-20) BUN 20 H (9-16) mg/dL Creatinine 1.08 (0.5-1.4) mg/dL Estim Creat Clear Calc 70.0 Estimated GFR > 60 POC Glucose (60-115) mg/dL Random Glucose 235 H (60-115) mg/dL Lactic Acid (0.5-2.0) mmol/L Calcium 9.3 (8.4-10.2) mg/dL Magnesium 1.9 Cancelled (1.6-2.6) mg/dL Total Bilirubin 0.4 (0.0-1.0) mg/dL AST 31 (5-37) U/L ALT 22 (0-40) U/L Alkaline Phosphatase 115 D (39-117) U/L Total Protein 7.9 (6.5-8.0) g/dL Albumin 3.6 (3.5-5.0) g/dL Lipase < 4 L Cancelled (8-78) U/L Acetone, Qual Negative (Negative) Discharge Plan Discharge Clinical Impression: Gastritis Patient Disposition: Xfer Other Instructions: Gastritis (ED), Diet for Stomach Ulcers and Gastritis (ED) Additional Instructions: 1. Resume all home medications as prescribed 2. Please follow-up with the primary care provider in the next 2-3 days for re-evaluation and further management of your symptoms. Return to the emergency room for any worsening of your symptoms. Prescriptions: New sucralfate [Carafate] 100 mg/mL suspension 10 ml PO BID Qty: 420 RF: 0 No Action (DME) blood-glucose meter [EMUZEuch Ultra2 Meter] Kit See Rx Instructions .ROUTE .MEDSUPPLY Qty: 1 RF: 0 (DME) OneTouch Ultra Blue Test Strip Strip See Rx Instructions .ROUTE .MEDSUPPLY Qty: 100 RF: 0 (DME) lancing device with lancets [ED01 Delica Plus Lanc Dev] Kit See Rx Instructions .ROUTE .MEDSUPPLY Qty: 1 RF: 0 (DME) lancets [OneTouch Delica Lancets] 33 gauge misc See Rx Instructions .ROUTE .MEDSUPPLY Qty: 100 RF: 0 multivitamin Tablet 1 tab PO QAM RF: 0 trazodone 50 mg tablet 1 tab PO BEDTIME RF: 0 sucralfate [Carafate] 100 mg/mL suspension 10 ml PO BID RF: 0 naltrexone 50 mg tablet 1 tab PO QAM RF: 0 lisinopril 20 mg tablet 1 tab PO QAM RF: 0 omeprazole 40 mg capsule,delayed release(DR/EC) 1 tab PO BID RF: 0 bupropion HCl 100 mg tablet sustained-release 12 hr 1 tab PO QAM RF: 0 magnesium oxide 400 mg (241.3 mg magnesium) tablet 1 tab PO BID RF: 0 folic acid 1 mg tablet 1 tab PO QAM RF: 0 famotidine 40 mg/5 mL (8 mg/mL) suspension 5 ml PO BEDTIME RF: 0 metoprolol tartrate 25 mg tablet 1 tab PO BID RF: 0 Levemir FlexTouch U-100 Insuln 100 unit/mL (3 mL) insulin pen 40 unit subcut QPM RF: 0 thiamine HCl (vitamin B1) 100 mg tablet 1 tab PO QAM RF: 0 insulin aspart U-100 [Novolog Flexpen U-100 Insulin] 100 unit/mL (3 mL) insulin pen 8 unit subcut TID RF: 0 Referrals: Physician,Unknown [Primary Care Provider] - 2 days
[2021-03-29 22:20] LABS: Basophils Absolute Auto 0.1 X10*3/uL (0.0-0.2); Basophils Percent Auto 0.6 % (0-2); Eosinophils Absolute Auto 0.3 X10*3/uL (0.0-0.4); Eosinophils Percent Auto 2.8 % (0-4); Hematocrit 30.9 % (42-52); Hemoglobin 9.6 g/dl (14.0-18.0); Imm Gran Abs Auto 0.11 X10*3/uL (0.00-0.03); Lymphocytes Absolute Auto 1.7 X10*3/uL (1.2-4.9); Lymphocytes Percent Auto 15.4 % (20-40); MANUAL DIFF FLAG SCAN; Mean Corpuscular HGB Conc 31.1 g/dl (31.0-36.0); Mean Corpuscular Hemoglobin 24.6 pg (27.0-33.0); Monocytes Absolute Auto 1.6 X10*3/uL (0.1-1.2); Monocytes Percent Auto 14.4 % (2-11); Neutrophils Absolute Auto 7.2 X10*3/uL (2.0-8.3); Neutrophils Percent Auto 65.8 % (45-73); Platelet Count 481 X10*3/uL (160-400); Red Blood Count 3.91 X10*6/uL (4.60-5.80); Red Cell Distribution Width 17.2 % (11.0-16.0); SCAN SMEAR FLAG 1; White Blood Count 10.9 X10*3/uL (4.8-10.8)
[2021-03-29 22:23] LABS: Glucose, Whole Blood 149 mg/dL (60-115)
[2021-03-29 22:47] LABS: SLIDE REVIEW VERIFIED
[2021-03-29] MEDS: Lidocaine HCl Viscous 2 % 15 ML SOLUTION 10 ML MUCOUS MEM (22:54)
[2021-03-29] MEDS: Famotidine/PF 20 MG/2 ML VIAL IVPUSH (22:55)
[2021-03-29] MEDS: Magnesium Hydrox/Alum Hydrox 30 ML ORAL.SUSP PO (22:55)
[2021-03-29] MEDS: Sucralfate Oral Suspension 1 GM/10 ML ORAL.SUSP PO (23:34)
--- NOTE | 2021-03-30 00:04 | PC.NURSE ---
2x contacted phelb-overhead paged. phelb called to bedside for difficult stick.
[2021-03-30 00:48] LABS: Acetone, serum QL Negative (Negative)
[2021-03-30 00:53] VITALS: BP 144/76; PULSE 87; RESP 16; TEMP 36.6; O2SAT 99
[2021-03-30 01:01] LABS: Alanine Aminotransferase 22 U/L (0-40); Albumin Level 3.6 g/dL (3.5-5.0); Alkaline Phosphatase 115 U/L (39-117); Anion Gap 15 (12-20); Aspartate Amino Transferase 31 U/L (5-37); Bilirubin Total 0.4 mg/dL (0.0-1.0); Blood Urea Nitrogen 20 mg/dL (9-16); Calcium 9.3 mg/dL (8.4-10.2); Carbon Dioxide 22 mmol/L (22-29); Chloride 100 mmol/L (96-108); Estimated Glomerular Filt Rate > 60; Glucose Random 235 mg/dL (60-115); Lipase < 4 U/L (8-78); Magnesium 1.9 mg/dL (1.6-2.6); Potassium 4.9 mmol/L (3.3-5.1); Sodium 132 mmol/L (135-145); Total Protein 7.9 g/dL (6.5-8.0)
[2021-03-30 01:06] LABS: Glucose Urine UA NEG (NEG); Leukocyte Esterase Urine NEG (NEG); Nitrite Urine NEG (NEG); PH 6.5 (5.0-8.0); Specific Gravity - Urine 1.015 (1.005-1.025); Urine Blood NEG (NEG); Urine Ketones 5 MG/DL (NEG); Urine Protein 1+ MG/DL (NEG-TRACE)
[2021-03-30 01:16] LABS: Color Urine YELLOW
[2021-03-30 01:17] LABS: Appearance Urine CLEAR; RBC Urine 0-2 /HPF (0); Squamous Epithelial Cell Urine TRACE /LPF
== END 2021-03-30 01:16 ==
PROVIDERS: Emergency Provider Student in an Organized Health Care Education/Training Program
DX: K29.70 Gastritis, unspecified, without bleeding (principal); R10.13 Epigastric pain; R11.2 Nausea with vomiting, unspecified; I10 Essential (primary) hypertension; E78.5 Hyperlipidemia, unspecified; E11.9 Type 2 diabetes mellitus without complications; F10.20 Alcohol dependence, uncomplicated; Z79.4 Long term (current) use of insulin; Z79.899 Other long term (current) drug therapy
CPT/HCPCS: 36415; 71046; 80053; 81001; 82009; 82947; 83605; 83690; 83735; 85025; 87040; 96374; 99284

== ENCOUNTER → 2021-04-08 11:51 | Outpatient (BNVA) | payer MEDICAID, SELFPAY | PROVIDERS: PCP Nurse Practitioner Family; Referring Provider Nurse Practitioner Family; Visit Provider Internal Medicine Gastroenterology | DX: K22.2 Esophageal obstruction (principal); Z79.899 Other long term (current) drug therapy | CPT/HCPCS: 99212 ==

== ENCOUNTER 2021-04-22 13:00 | Day surgery (SDC) | payer MEDICAID, SELFPAY ==
--- NOTE | 2021-04-21 09:33 | P.CONAN_ITS ---
Documented by User: Annita Neal 04/21/21 09:38 HPI - Anesthesia Eval Consult details Narrative: 56yo M for Upper Endoscopy with Balloon Dilitation Last EGD with dilation 02/26/21 (intraop anesth record unavail). Mult EGD with dilation. +ETOH abuse PMFSH Active Problems Active Problems: All Active Problems (Updated 04/14/21 @ 12:08 by Otoniel Muniz MD) Dysphagia (Acute) Leukocytosis (Acute) Gastritis and duodenitis (Acute) Hematemesis/vomiting blood (Acute) DKA (diabetic ketoacidoses) (Acute) Acute GI bleeding (Acute) RONN (acute kidney injury) (Acute) Bacteremia (Acute) RONN (acute kidney injury) (Acute) Hypokalemia (Acute) Alcohol abuse with withdrawal (Acute) Fever (Acute) Lactic acidosis (Acute) Fever of unknown origin (Acute) Vitamin D deficiency (Acute) HLD (hyperlipidemia) (Acute) HTN (hypertension) (Acute) Esophageal stricture (Acute) Hypophosphatemia (Acute) Supraventricular tachycardia (Acute) Hypomagnesemia (Acute) Type 2 diabetes mellitus (Acute) Past Medical History Medical History Acute alcoholic gastritis Alcohol use disorder, severe, dependence Alcoholism Depressed Diabetes Esophageal stricture Fever of unknown origin Gastritis GIB (gastrointestinal bleeding) Head injury Hepatitis C HLD (hyperlipidemia) HTN (hypertension) Hypomagnesemia Hypophosphatemia Odynophagia On beta cher at home Pancreatitis Seizures Supraventricular tachycardia Type 2 diabetes mellitus Vitamin D deficiency Family History Family History Father Diabetes Family history of problems with anesthesia: No Surgical History Surgical History H/O colonoscopy History of esophagogastroduodenoscopy (EGD) History of Problems with Anesthesia: No Social History Social History Household Members: Spouse and Other Household Members Other:: homeless at present Housing: Homeless Are you a primary child care coordinator to a significant other at home: No Do you presently have visiting nurse or other home services: No Alcohol intake: current Alcohol intake frequency: former alcohol drinker Alcohol type: hard liquor Patient Tobacco Use Status: Never used Tobacco Second Hand Smoke Exposure: No Use of substances other than those prescribed or required for medical reasons: No Are you DNR?: No Advance Directives: No Advance Directives Information Provided: No Advance Directives Date on File: 12/12/20 service: No Current occupational status: unemployed and disabled Meds Allergies Allergy/AdvReac Type Severity Reaction Status Date / Time No Known Allergies Allergy Verified 04/08/21 12:02 Home Medications Medication Instructions Recorded Confirmed Last Taken Type bupropion HCl 1 tab PO QAM 03/19/21 03/19/21 Unknown History famotidine 5 ml PO BEDTIME 03/19/21 03/19/21 Unknown History folic acid 1 tab PO QAM 03/19/21 03/19/21 Unknown History insulin aspart U-100 [Novolog 8 unit SUBCUT TID 03/19/21 03/19/21 Unknown History Flexpen U-100 Insulin] insulin detemir U-100 [Levemir 40 unit SUBCUT QPM 03/19/21 03/19/21 Unknown History FlexTouch U-100 Insuln] lisinopril 1 tab PO QAM 03/19/21 03/19/21 Unknown History magnesium oxide 1 tab PO BID 03/19/21 03/19/21 Unknown History metoprolol tartrate 1 tab PO BID 03/19/21 03/19/21 Unknown History multivitamin 1 tab PO QAM 03/19/21 03/19/21 Unknown History naltrexone 1 tab PO QAM 03/19/21 03/19/21 Unknown History omeprazole 1 tab PO BID 03/19/21 03/19/21 Unknown History sucralfate [Carafate] 10 ml PO BID 03/19/21 03/19/21 Unknown History thiamine HCl (vitamin B1) 1 tab PO QAM 03/19/21 03/19/21 Unknown History trazodone 1 tab PO BEDTIME 03/19/21 03/19/21 Unknown History Exam Exam Date and Time: April 21, 2021 0933 Pertinent Lab Results Pertinent Lab Results: Laboratory Tests 03/29/21 03/30/21 22:11 00:27 WBC 10.9 H Hgb 9.6 L Hct 30.9 L Plt Count 481 H Sodium 132 L Potassium 4.9 Chloride 100 Carbon Dioxide 22 BUN 20 H Creatinine 1.08 Narrative Narrative: EKG 03/2021 Vent. Rate : 104 BPM Atrial Rate : 104 BPM P-R Int : 128 ms QRS Dur : 082 ms QT Int : 332 ms P-R-T Axes : 068 078 053 degrees QTc Int : 436 ms Sinus tachycardia Otherwise normal ECG When compared with ECG of 05-MAR-2021 10:08, No significant change was found ECHO 01/2021 Conclusions: - Normal biventricular function. - Normal diastolic function - Mildly dilated LA. Assessment and Plan Assessment Anesthesia Assessment: Chart Reviewed Documented by User: Rubi Beckham 04/22/21 15:29 PMFSH Past Medical History Medical History Acute alcoholic gastritis Alcohol use disorder, severe, dependence Alcoholism Depressed Diabetes Esophageal stricture Fever of unknown origin Gastritis GIB (gastrointestinal bleeding) Head injury Hepatitis C HLD (hyperlipidemia) HTN (hypertension) Hypomagnesemia Hypophosphatemia Odynophagia On beta cher at home Pancreatitis Seizures Supraventricular tachycardia Type 2 diabetes mellitus Vitamin D deficiency Family History Family History Father Diabetes Surgical History Surgical History H/O colonoscopy History of esophagogastroduodenoscopy (EGD) Social History Social History Household Members: Spouse and Other Household Members Other:: homeless at present Housing: Homeless Are you a primary child care coordinator to a significant other at home: No Do you presently have visiting nurse or other home services: No Alcohol intake: current Alcohol intake frequency: former alcohol drinker Alcohol type: hard liquor Patient Tobacco Use Status: Never used Tobacco Second Hand Smoke Exposure: No Use of substances other than those prescribed or required for medical reasons: No Are you DNR?: No Advance Directives: No Advance Directives Information Provided: No Advance Directives Date on File: 12/12/20 service: No Current occupational status: unemployed and disabled Meds Allergies Allergy/AdvReac Type Severity Reaction Status Date / Time No Known Allergies Allergy Verified 04/08/21 12:02 Home Medications Medication Instructions Recorded Confirmed Last Taken Type bupropion HCl 1 tab PO QAM 03/19/21 03/19/21 Unknown History famotidine 5 ml PO BEDTIME 03/19/21 03/19/21 Unknown History folic acid 1 tab PO QAM 03/19/21 03/19/21 Unknown History insulin aspart U-100 [Novolog 8 unit SUBCUT TID 03/19/21 03/19/21 Unknown History Flexpen U-100 Insulin] insulin detemir U-100 [Levemir 40 unit SUBCUT QPM 03/19/21 03/19/21 Unknown History FlexTouch U-100 Insuln] lisinopril 1 tab PO QAM 03/19/21 03/19/21 Unknown History magnesium oxide 1 tab PO BID 03/19/21 03/19/21 Unknown History metoprolol tartrate 1 tab PO BID 03/19/21 03/19/21 Unknown History multivitamin 1 tab PO QAM 03/19/21 03/19/21 Unknown History naltrexone 1 tab PO QAM 03/19/21 03/19/21 Unknown History omeprazole 1 tab PO BID 03/19/21 03/19/21 Unknown History sucralfate [Carafate] 10 ml PO BID 03/19/21 03/19/21 Unknown History thiamine HCl (vitamin B1) 1 tab PO QAM 03/19/21 03/19/21 Unknown History trazodone 1 tab PO BEDTIME 03/19/21 03/19/21 Unknown History Exam Airway Mallampati Class: II TM Dist: >3cm Neck ROM: Full Assessment and Plan Assessment Anesthesia Assessment: Anesthesia Plan Discussed and Chart Reviewed Final Anesthetic Review NPO: Yes ASA Class: III Final Preanesthetic Review: No Changes in Pt Med Stat, Meds/Allgs Chart Reviewed, Consent Obtained/Reviewed and Anes Risks/Benef Reviewed Patient Risk: Intermediate Procedure Risk: Low Assessment/Block/Sedation in SS: Assess/Block/Sedation-SS Anesthetic Plan Anesthetic Plan: MAC: Disposition: Standard PACU
--- NOTE | 2021-04-22 13:30 | MHC.SHP ---
Pre-Procedural Eval Section A The patient is an INPATIENT: No The History & Physical has been completed within 30 days and I have reviewed it.: Yes Section B Chief Complaint: esophageal obstruction Allergies: Allergies Allergy/AdvReac Type Severity Reaction Status Date / Time No Known Allergies Allergy Verified 04/08/21 12:02 Plan Diagnosis/Plan: Unchanged I have reviewed the history and physical and performed a pertinent physical examination on my patient. No changes have occurred unless specified.
[2021-04-22 13:33] VITALS: BP 146/77; PULSE 82; RESP 18; TEMP 36.8; O2SAT 100; BMI 20.3
--- NOTE | 2021-04-22 13:46 | PC.NURSE ---
CALLED RADIOLOGY FOR MIDLINE PLACEMENT AND THEY WERE TOLD THAT HE WAS SCHEDULED ON THE THIS WEEK WHEN RENNY RN IS AROUND TO PERFORM PROCEDURE AND THERE ARE NO OTHER PEOPLE IN THE DEPARTMENT THAT CAN PERFORM THE PROCEDURE. MD BUCHANAN AWARE. WARMING ALL FOUR EXTREMITES TO ATTEMPT AN IV INSERTION.
[2021-04-22 15:33] LABS: Glucose, Whole Blood 231 mg/dL (60-115)
[2021-04-22 17:20] VITALS: BP 101/62; PULSE 103; RESP 12; TEMP 36.6; O2SAT 95
--- NOTE | 2021-04-22 17:29 | PM.OP ---
Brief Operative Note Date of Service: 04/22/21 Pre-op diagnosis: dysphagia Post-op diagnosis: same Procedure: see op note Surgeon: Otoniel Muniz MD Anesthesia: MAC Was an Belting And Webbing Inspector used for this Procedure?: No Estimated blood loss (mL): 0 Condition: stable Disposition: PACU
[2021-04-22 17:30] VITALS: BP 121/62; PULSE 98; RESP 16; O2SAT 97
--- NOTE | 2021-04-22 17:30 | W.PM.OPN ---
Operative Note Operative Note Date of Service: 04/22/21 Narrative: Procedure Description: EGD FLEXIBLE TRANSORAL UPPER GASTROINTESTINAL ENDOSCOPY UPPER ENDOSCOPY Consent: Indications for the procedure and potential complications of bleeding, perforation, reaction to medications and missed diagnosis were discussed with the patient and informed consent was obtained. Instrument: Olympus GIF H 190 J mid size upper endoscope Monitoring: Vital signs and clinical assessment, continuous EKG monitoring, Pulse oximetry, Carbon Dioxide monitoring and blood pressure monitoring were done throughout the procedure. FINDINGS: Macerated esophageal tissue at distal esophagus with friability and granularity, narrow at GEJ, couldn;t pass slim scope EGD scope, balloon dilation done to 12 mm under direct visualization and then scope able to pass easily. Bx taken from distal esophagus and GEJ after a regular EGD scope was passed. Cytology brushings also taken. A moderately large sliding hiatal hernia noted about 4 cm, no mass at GEJ on retroflexion. Stomach and duodenum appeared normal Intervention: Biopsies as noted above, balloon dilation Impression/Findings: stricture, possibly malignant Impression/Findings: stricture hiatal hernia PLAN: cont with high dose PPI recall him back in 2-4 weeks to try to updilate, temporary stent placement also an option as discussed before with him soft diet, small pieces, chew thoroughly. might repeat CT chest, re refer to [facility] for EUS with Dr Lehman
[2021-04-22 17:40] VITALS: BP 108/69; PULSE 94; RESP 15; TEMP 36.4; O2SAT 90
== END 2021-04-22 18:00 | disposition home or self-care (01) ==
PROVIDERS: PCP Nurse Practitioner Family; Visit Provider Internal Medicine Gastroenterology
PROC: (CPT 43249; principal; 2021-04-22 13:30)
DX: K22.2 Esophageal obstruction (principal); R13.10 Dysphagia, unspecified; K44.9 Diaphragmatic hernia without obstruction or gangrene; Z91.14 Patient's other noncompliance with medication regimen; K29.20 Alcoholic gastritis without bleeding; F10.20 Alcohol dependence, uncomplicated; I10 Essential (primary) hypertension; B19.20 Unspecified viral hepatitis C without hepatic coma; E11.9 Type 2 diabetes mellitus without complications; Z79.4 Long term (current) use of insulin
CPT/HCPCS: 43249; 43239; 82947; 88112; 88305; C1726

== ENCOUNTER 2021-05-09 13:49 | Outpatient (REF) | payer MEDICAID, SELFPAY ==
--- NOTE | ~2021-05-09 | CT_ITS ---
EXAMINATION: CT CHEST WITHOUT CONTRAST CLINICAL INFORMATION: Esophageal obstruction. COMPARISON: Previous chest CT December 2020 and chest x-ray most recent March 2021. TECHNIQUE: Multidetector volumetric CT imaging of the chest was done. Axial MIP volume rendering provided. Sagittal and coronal reformatted images were obtained. This CT examination was performed using dose optimization techniques as appropriate, variously including the following: *Automated exposure control *Adjustment of mA and/or kV according to patient size (this includes techniques or standardized protocols for targeted exams where dose is matched to indication/reason for exam; i.e. extremities or head) *Use of iterative reconstruction technique DLP: 126 mGy-cm FINDINGS: LUNGS: There are 2 small air collections adjacent to the trachea on the right side of the mediastinum that are stable suggestive of tracheal diverticuli. There is a 3 x 4 mm right upper lobe nodule axial image 124 series 7 that is stable. There is a 2 mm peripheral right upper lobe nodule axial image 156 series 7 that is stable. There is a 2 mm peripheral or subpleural right middle lobe nodule axial image 380 series 7 that is stable. No new pulmonary nodule is seen. MEDIASTINUM: There is wall thickening of the distal thoracic esophagus. This is similar to previous exam. There is a prominent posterior mediastinal lymph node adjacent to the descending thoracic esophagus measuring 1 x 1.4 cm axial image 46 series 3. This is similar to previous exams. There are other smaller mediastinal lymph nodes that are stable. The heart does not appear enlarged. There is no pericardial effusion. The thoracic aorta is normal in caliber. PLEURA: There is no pleural effusion. No pleural mass or thickening. AXILLA: There are small bilateral axillary lymph nodes that are stable. No enlarged lymph nodes or chest wall mass is seen. UPPER ABDOMEN: There are calcifications in the pancreas suggestive of chronic pancreatitis. There is dilatation of the main pancreatic duct measuring up to 9 mm that appears unchanged. There are small upper abdominal lymph nodes that appear unchanged. OSSEOUS STRUCTURES: Unremarkable. CT/CT chest wo con IMPRESSION: Stable wall thickening of the distal thoracic esophagus. Stable prominent right posterior mediastinal lymph node. Stable small pulmonary nodules. Stable abdominal findings.
== END 2021-05-09 13:50 | disposition home or self-care (01) ==
LOC: HO.CT 13:49
PROVIDERS: Visit Provider Internal Medicine Gastroenterology
DX: K22.2 Esophageal obstruction (principal)
CPT/HCPCS: 71250; 99211

== ENCOUNTER → 2021-05-15 09:20 | Day surgery (SDC) | payer MEDICAID, SELFPAY ==
--- NOTE | 2021-05-14 10:08 | P.CONAN_ITS ---
Documented by User: Annita Katzney 05/14/21 10:10 HPI - Anesthesia Eval Consult details Narrative: 56yo M for Upper Endoscopy with Balloon Dilitation Last EGD with dilation 04/22/21 with TIVA. Mult EGD with dilation. +ETOH abuse PMFSH Active Problems Active Problems: All Active Problems (Updated 04/14/21 @ 12:08 by Otoniel Muniz MD) Dysphagia (Acute) Leukocytosis (Acute) Gastritis and duodenitis (Acute) Hematemesis/vomiting blood (Acute) DKA (diabetic ketoacidoses) (Acute) Acute GI bleeding (Acute) RONN (acute kidney injury) (Acute) Bacteremia (Acute) RONN (acute kidney injury) (Acute) Hypokalemia (Acute) Alcohol abuse with withdrawal (Acute) Fever (Acute) Lactic acidosis (Acute) Fever of unknown origin (Acute) Vitamin D deficiency (Acute) HLD (hyperlipidemia) (Acute) HTN (hypertension) (Acute) Esophageal stricture (Acute) Hypophosphatemia (Acute) Supraventricular tachycardia (Acute) Hypomagnesemia (Acute) Type 2 diabetes mellitus (Acute) Past Medical History Medical History Acute alcoholic gastritis Alcohol use disorder, severe, dependence Alcoholism Depressed Diabetes Esophageal stricture Fever of unknown origin Gastritis GIB (gastrointestinal bleeding) Head injury Hepatitis C HLD (hyperlipidemia) HTN (hypertension) Hypomagnesemia Hypophosphatemia Odynophagia On beta cher at home Pancreatitis Seizures Supraventricular tachycardia Type 2 diabetes mellitus Vitamin D deficiency Family History Family History Father Diabetes Family history of problems with anesthesia: No Surgical History Surgical History H/O colonoscopy History of esophagogastroduodenoscopy (EGD) History of Problems with Anesthesia: No Social History Social History Household Members: Spouse and Other Household Members Other:: homeless at present Housing: Homeless Are you a primary child care cook to a significant other at home: No Do you presently have visiting nurse or other home services: No Alcohol intake: current Alcohol intake frequency: former alcohol drinker Alcohol type: hard liquor Patient Tobacco Use Status: Never used Tobacco Second Hand Smoke Exposure: No Advance Directives Date on File: 12/12/20 service: No Current occupational status: unemployed and disabled Meds Allergies Allergy/AdvReac Type Severity Reaction Status Date / Time No Known Allergies Allergy Verified 04/08/21 12:02 Home Medications Medication Instructions Recorded Confirmed Last Taken Type bupropion HCl 1 tab PO QAM 03/19/21 03/19/21 Unknown History famotidine 5 ml PO BEDTIME 03/19/21 03/19/21 Unknown History folic acid 1 tab PO QAM 03/19/21 03/19/21 Unknown History insulin aspart U-100 [Novolog 8 unit SUBCUT TID 03/19/21 03/19/21 Unknown History Flexpen U-100 Insulin] insulin detemir U-100 [Levemir 40 unit SUBCUT QPM 03/19/21 03/19/21 Unknown History FlexTouch U-100 Insuln] lisinopril 1 tab PO QAM 03/19/21 03/19/21 Unknown History magnesium oxide 1 tab PO BID 03/19/21 03/19/21 Unknown History metoprolol tartrate 1 tab PO BID 03/19/21 03/19/21 Unknown History multivitamin 1 tab PO QAM 03/19/21 03/19/21 Unknown History naltrexone 1 tab PO QAM 03/19/21 03/19/21 Unknown History omeprazole 1 tab PO BID 03/19/21 03/19/21 Unknown History sucralfate [Carafate] 10 ml PO BID 03/19/21 03/19/21 Unknown History thiamine HCl (vitamin B1) 1 tab PO QAM 03/19/21 03/19/21 Unknown History trazodone 1 tab PO BEDTIME 03/19/21 03/19/21 Unknown History Exam Exam Date and Time: May 14, 2021 1008 Pertinent Lab Results Pertinent Lab Results: Laboratory Tests 03/29/21 03/30/21 22:11 00:27 WBC 10.9 H Hgb 9.6 L Hct 30.9 L Plt Count 481 H Sodium 132 L Potassium 4.9 Chloride 100 Carbon Dioxide 22 BUN 20 H Creatinine 1.08 Narrative Narrative: EKG 03/2021 Vent. Rate : 104 BPM Atrial Rate : 104 BPM P-R Int : 128 ms QRS Dur : 082 ms QT Int : 332 ms P-R-T Axes : 068 078 053 degrees QTc Int : 436 ms Sinus tachycardia Otherwise normal ECG When compared with ECG of 05-MAR-2021 10:08, No significant change was found ECHO 01/2021 Conclusions: - Normal biventricular function. - Normal diastolic function - Mildly dilated LA. Airway Adult Head Mouth w/Numbe Teeth: 1. Loose front teeth 2. Loose Assessment and Plan Assessment Anesthesia Assessment: Chart Reviewed Documented by User: Caden Angela MD 05/15/21 14:01 [facility] Past Medical History Medical History Acute alcoholic gastritis Alcohol use disorder, severe, dependence Alcoholism Depressed Diabetes Esophageal stricture Fever of unknown origin Gastritis GIB (gastrointestinal bleeding) Head injury Hepatitis C HLD (hyperlipidemia) HTN (hypertension) Hypomagnesemia Hypophosphatemia Odynophagia On beta cher at home Pancreatitis Seizures Supraventricular tachycardia Type 2 diabetes mellitus Vitamin D deficiency Family History Family History Father Diabetes Surgical History Surgical History H/O colonoscopy History of esophagogastroduodenoscopy (EGD) Social History Social History Household Members: Spouse and Other Household Members Other:: homeless at present Housing: Homeless Are you a primary child care cook to a significant other at home: No Do you presently have visiting nurse or other home services: No Alcohol intake: current Alcohol intake frequency: former alcohol drinker Alcohol type: hard liquor Patient Tobacco Use Status: Never used Tobacco Second Hand Smoke Exposure: No Advance Directives Date on File: 12/12/20 service: No Current occupational status: unemployed and disabled Meds Allergies Allergy/AdvReac Type Severity Reaction Status Date / Time No Known Allergies Allergy Verified 04/08/21 12:02 Home Medications Medication Instructions Recorded Confirmed Last Taken Type bupropion HCl 1 tab PO QAM 03/19/21 03/19/21 Unknown History famotidine 5 ml PO BEDTIME 03/19/21 03/19/21 Unknown History folic acid 1 tab PO QAM 03/19/21 03/19/21 Unknown History insulin aspart U-100 [Novolog 8 unit SUBCUT TID 03/19/21 03/19/21 Unknown History Flexpen U-100 Insulin] insulin detemir U-100 [Levemir 40 unit SUBCUT QPM 03/19/21 03/19/21 Unknown History FlexTouch U-100 Insuln] lisinopril 1 tab PO QAM 03/19/21 03/19/21 Unknown History magnesium oxide 1 tab PO BID 03/19/21 03/19/21 Unknown History metoprolol tartrate 1 tab PO BID 03/19/21 03/19/21 Unknown History multivitamin 1 tab PO QAM 03/19/21 03/19/21 Unknown History naltrexone 1 tab PO QAM 03/19/21 03/19/21 Unknown History omeprazole 1 tab PO BID 03/19/21 03/19/21 Unknown History sucralfate [Carafate] 10 ml PO BID 03/19/21 03/19/21 Unknown History thiamine HCl (vitamin B1) 1 tab PO QAM 03/19/21 03/19/21 Unknown History trazodone 1 tab PO BEDTIME 03/19/21 03/19/21 Unknown History Exam Airway Mallampati Class: I TM Dist: >3cm Neck ROM: Full Adult Head Mouth w/Numbe Teeth: 1. Loose front teeth 2. Loose Loose/Missing/Broken Teeth: Yes Heart: SR, LVH Assessment and Plan Assessment Anesthesia Assessment: Anesthesia Plan Discussed and Chart Reviewed Final Anesthetic Review NPO: Yes ASA Class: III Final Preanesthetic Review: No Changes in Pt Med Stat, Meds/Allgs Chart Reviewed, Consent Obtained/Reviewed and Anes Risks/Benef Reviewed Patient Risk: Intermediate Procedure Risk: Low Anesthetic Plan Anesthetic Plan: MAC: Disposition: Standard PACU
[2021-05-15 13:49] VITALS: BP 150/87; PULSE 97; RESP 18; TEMP 36.7; O2SAT 99; BMI 20.9
--- NOTE | 2021-05-15 13:54 | MHC.SHP ---
Pre-Procedural Eval Section A Date of Service: 05/15/21 Section B Chief Complaint: esophageal obstruction Relevant Family History (Specify if Yes): No Relevant Social History: Alcohol Use Present Medications: see Short Stay Collaborative assessment Medical History: Significant History (Acute alcoholic gastritis Alcohol use disorder, severe, dependence Alcoholism Depressed Diabetes Esophageal stricture Fever of unknown origin Gastritis GIB (gastrointestinal bleeding) Head injury Hepatitis C HLD (hyperlipidemia) HTN (hypertension) Hypomagnesemia Hypophosphatemia Odynophagia On beta ) History of Previous Operations: Relevant previous surgery/procedure and date(s) (H/O colonoscopy History of esophagogastroduodenoscopy (EGD)) Allergies: Allergies Allergy/AdvReac Type Severity Reaction Status Date / Time No Known Allergies Allergy Verified 04/08/21 12:02 Review of Systems Sugical H&P ROS: Negative: Constitution, Cardiovascular, Respiratory, Neurological, Psychiatric, Hem-Onc, Allergic/Immunologic, Gastrointestinal, Genitourinary, Musculoskeletal, Integumentary, Endocrine and Eyes/Ears/Nose/Throat Exam Surgical H&P Exam: Normal: HEENT, Normal: Heart, Normal: Lungs, Normal: Extremities, Normal: Abdomen, Normal: Skin and Normal: Neurological Plan Diagnosis/Plan: Unchanged I have reviewed the history and physical and performed a pertinent physical examination on my patient. No changes have occurred unless specified.
[2021-05-15] MEDS: Lactated Ringers 1,000 ML 100 ML IVCONT (14:03)
--- NOTE | 2021-05-15 14:17 | HO.MIDLINE_ITS ---
PICC Line Insertion MIDLINE INSERTION Diagnosis: DIFFICULT IV ACCESS Indication: NEEDS IV ACCESS FOR EGD Pertinent Labs: REVIEWED Technique: Using sterile technique including cap and mask, glove and drape, the RIGHT arm was prepped and draped in the usual sterile fashion of full barrier technique with G. Using ultrasound guidance, BASILIC vein access was obtained IN SINGLE ATTEMPT BY THIS RN. A SINGLE LUMEN, NON-PASV, (20G x 8CM) MIDLINE was positioned. The procedure was performed in [facility]. Ultrasound was used to document vein patency and for needle entry. A formal ultrasound picture was recorded. Vascular Centrifuge Operator has released the line for use and it is currently dressed with a StatLock, Tegaderm, and CHG disc. Verification has been performed for blood return and line patency. Arm Circumference: 29 CM Equipment: [employer] POWERGLIDE PRO Catheter Type: SINGLE LUMEN, NON-PASV, (20G x 8CM) Lot #: [id number]
--- NOTE | 2021-05-15 14:30 | PM.OP ---
Brief Operative Note Date of Service: 05/15/21 Pre-op diagnosis: dysphagia Post-op diagnosis: same Procedure: see op note Surgeon: Otoniel Muniz MD Anesthesia: MAC Was an Poly Packer And Heat Sealer used for this Procedure?: No Estimated blood loss (mL): 15 Condition: stable Disposition: PACU
--- NOTE | 2021-05-15 14:31 | W.PM.OPN ---
Operative Note Operative Note Date of Service: 05/15/21 Narrative: FLEXIBLE TRANSORAL UPPER GASTROINTESTINAL ENDOSCOPY UPPER ENDOSCOPY Consent: Indications for the procedure and potential complications of bleeding, perforation, reaction to medications and missed diagnosis were discussed with the patient and informed consent was obtained. Instrument: Olympus GIF H 190 J mid size upper endoscope Monitoring: Vital signs and clinical assessment, continuous EKG monitoring, Pulse oximetry, Carbon Dioxide monitoring and blood pressure monitoring were done throughout the procedure. FINDINGS: Macerated esophageal tissue at distal esophagus with friability and granularity, narrow at GEJ, couldn;t pass regular EGD scope, balloon dilation done to 13.5 mm and then scope able to pass easily. There was a tear noted, eventually stopped bleeding. There was also some food stuck at the stricture level and this was pushed down. Bx taken from distal esophagus and GEJ. Cytology brushings also taken. A moderately large sliding hiatal hernia noted about 4 cm, no mass at GEJ on retroflexion. Stomach and duodenum appeared normal Intervention: Biopsies as noted above, balloon dilation Impression/Findings: stricture, possibly malignant Impression/Findings: stricture hiatal hernia PLAN: cont with high dose PPI recall him back in 2-4 weeks to redilate (I don;t think he will tolerate more than 12 mm dilation going ahead), temporary stent placement also an option as discussed before with him, await EUS at [facility] as planned soft diet, small pieces, chew thoroughly.
[2021-05-15 14:37] VITALS: BP 133/89; PULSE 100; RESP 14; TEMP 36.9; O2SAT 99
[2021-05-15 14:53] VITALS: BP 142/84; PULSE 95; RESP 18; TEMP 36.8; O2SAT 100
[2021-05-15] MEDS: Mag&Al/Sim/Diphenhyd/Lidocaine 10 ML ORAL.SUSP PO (14:58)
[2021-05-15 15:08] VITALS: BP 156/93; PULSE 81; RESP 18; TEMP 36.4; O2SAT 100
[2021-05-15 15:20] VITALS: BP 155/93; PULSE 81; RESP 18; O2SAT 100
[2021-05-16 07:23] LABS: Glucose, Whole Blood 190 mg/dL (60-115)
== END | disposition home or self-care (01) ==
PROVIDERS: Visit Provider Internal Medicine Gastroenterology
PROC: (CPT 43249; principal; 2021-05-15 14:30)
DX: K22.2 Esophageal obstruction (principal); K44.9 Diaphragmatic hernia without obstruction or gangrene; K29.20 Alcoholic gastritis without bleeding; F10.20 Alcohol dependence, uncomplicated; R68.3 Clubbing of fingers; I10 Essential (primary) hypertension; E83.42 Hypomagnesemia; E83.39 Other disorders of phosphorus metabolism; E11.9 Type 2 diabetes mellitus without complications; E55.9 Vitamin D deficiency, unspecified; Z91.14 Patient's other noncompliance with medication regimen; Z59.0 Homelessness; Z79.4 Long term (current) use of insulin; Z79.899 Other long term (current) drug therapy
CPT/HCPCS: 43249; 43239; 36410; 82947; 88112; 88305; C1726

== ENCOUNTER 2021-06-09 11:24 | Day surgery (SDC) | payer MEDICAID, SELFPAY ==
--- NOTE | 2021-06-09 10:38 | HO.ANESPROP2 ---
[facility] Active Problems Active Problems: All Active Problems (Updated 04/14/21 @ 12:08 by Otoniel Muniz MD) Dysphagia (Acute) Leukocytosis (Acute) Gastritis and duodenitis (Acute) Hematemesis/vomiting blood (Acute) DKA (diabetic ketoacidoses) (Acute) Acute GI bleeding (Acute) RONN (acute kidney injury) (Acute) Bacteremia (Acute) RONN (acute kidney injury) (Acute) Hypokalemia (Acute) Alcohol abuse with withdrawal (Acute) Fever (Acute) Lactic acidosis (Acute) Fever of unknown origin (Acute) Vitamin D deficiency (Acute) HLD (hyperlipidemia) (Acute) HTN (hypertension) (Acute) Esophageal stricture (Acute) Hypophosphatemia (Acute) Supraventricular tachycardia (Acute) Hypomagnesemia (Acute) Type 2 diabetes mellitus (Acute) Past Medical History Medical History Acute alcoholic gastritis Alcohol use disorder, severe, dependence Alcoholism Depressed Diabetes Esophageal stricture Fever of unknown origin Gastritis GIB (gastrointestinal bleeding) Head injury Hepatitis C HLD (hyperlipidemia) HTN (hypertension) Hypomagnesemia Hypophosphatemia Odynophagia On beta cher at home Pancreatitis Seizures Supraventricular tachycardia Type 2 diabetes mellitus Vitamin D deficiency Family History Family History Father Diabetes Family history of problems with anesthesia: No Surgical History Surgical History H/O colonoscopy History of esophagogastroduodenoscopy (EGD) History of Problems with Anesthesia: No Social History Social History Household Members: Spouse and Other Household Members Other:: homeless at present Housing: Homeless Are you a primary residential care facility manager to a significant other at home: No Do you presently have visiting nurse or other home services: No Alcohol intake: current Alcohol intake frequency: former alcohol drinker Alcohol type: hard liquor Patient Tobacco Use Status: Never used Tobacco Second Hand Smoke Exposure: No Advance Directives Date on File: 12/12/20 service: No Current occupational status: unemployed and disabled Meds Allergies Allergy/AdvReac Type Severity Reaction Status Date / Time No Known Allergies Allergy Verified 04/08/21 12:02 Home Medications Medication Instructions Recorded Confirmed Last Taken Type bupropion HCl 100 mg tablet,12 hr 1 tab PO QAM 03/19/21 03/19/21 Unknown History sustained-release famotidine 40 mg/5 mL (8 mg/mL) 5 ml PO BEDTIME 03/19/21 03/19/21 Unknown History oral suspension folic acid 1 mg tablet 1 tab PO QAM 03/19/21 03/19/21 Unknown History insulin aspart U-100 100 unit/mL 8 unit SUBCUT TID 03/19/21 03/19/21 Unknown History (3 mL) subcutaneous pen (Novolog Flexpen U-100 Insulin aspart) insulin detemir U-100 100 unit/mL 40 unit SUBCUT QPM 03/19/21 03/19/21 Unknown History (3 mL) subcutaneous pen (Levemir FlexTouch U-100 Insulin) lisinopril 20 mg tablet 1 tab PO QAM 03/19/21 03/19/21 Unknown History magnesium oxide 400 mg (241.3 mg 1 tab PO BID 03/19/21 03/19/21 Unknown History magnesium) tablet metoprolol tartrate 25 mg tablet 1 tab PO BID 03/19/21 03/19/21 Unknown History multivitamin 1 tab PO QAM 03/19/21 03/19/21 Unknown History naltrexone 50 mg tablet 1 tab PO QAM 03/19/21 03/19/21 Unknown History omeprazole 40 mg capsule,delayed 1 tab PO BID 03/19/21 03/19/21 Unknown History release sucralfate 100 mg/mL oral 10 ml PO BID 03/19/21 03/19/21 Unknown History suspension (Carafate) thiamine HCl (vitamin B1) 100 mg 1 tab PO QAM 03/19/21 03/19/21 Unknown History tablet trazodone 50 mg tablet 1 tab PO BEDTIME 03/19/21 03/19/21 Unknown History Exam Exam Date and Time: June 09, 2021 1038 Airway Mallampati Class: II TM Dist: >3cm Neck ROM: Full Loose/Missing/Broken Teeth: No Heart: RRR Lungs: CTA Assessment and Plan Assessment Anesthesia Assessment: Anesthesia Plan Discussed and Chart Reviewed Final Anesthetic Review Family History of Problems with Anesthesia: No History of Problems with Anesthesia: No ASA Class: III Final Preanesthetic Review: Meds/Allgs Chart Reviewed, Consent Obtained/Reviewed and Anes Risks/Benef Reviewed Patient Risk: Intermediate Procedure Risk: Low Anesthetic Plan Anesthetic Plan: MAC: Disposition: Standard PACU
[2021-06-09 11:46] VITALS: BMI 20.5
[2021-06-09 11:53] VITALS: BP 130/76; PULSE 82; RESP 16; TEMP 36.4; O2SAT 100
[2021-06-09 12:01] LABS: Glucose, Whole Blood 214 mg/dL (60-115)
--- NOTE | 2021-06-09 12:52 | MHC.SHP ---
Pre-Procedural Eval Section A Date of Service: 06/09/21 Section B Chief Complaint: Esophageal Obstruction Relevant Family History (Specify if Yes): No Relevant Social History: None (ex heavy drinker, just gave up) Present Medications: see Short Stay Collaborative assessment Medical History: Significant History (Acute alcoholic gastritis Alcohol use disorder, severe, dependence Alcoholism Depressed Diabetes Esophageal stricture Fever of unknown origin Gastritis GIB (gastrointestinal bleeding) Head injury Hepatitis C HLD (hyperlipidemia) HTN (hypertension) Hypomagnesemia Hypophosphatemia Odynophagia On beta ) History of Previous Operations: Relevant previous surgery/procedure and date(s) (H/O colonoscopy History of esophagogastroduodenoscopy (EGD)) Allergies: Allergies Allergy/AdvReac Type Severity Reaction Status Date / Time No Known Allergies Allergy Verified 04/08/21 12:02 Review of Systems Sugical H&P ROS: Negative: Constitution, Cardiovascular, Respiratory, Neurological, Psychiatric, Hem-Onc, Allergic/Immunologic, Gastrointestinal, Genitourinary, Musculoskeletal, Integumentary, Endocrine and Eyes/Ears/Nose/Throat Exam Surgical H&P Exam: Normal: HEENT, Normal: Heart, Normal: Lungs, Normal: Extremities, Normal: Abdomen, Normal: Skin (finger clubbing) and Normal: Neurological Plan Diagnosis/Plan: Unchanged I have reviewed the history and physical and performed a pertinent physical examination on my patient. No changes have occurred unless specified.
--- NOTE | 2021-06-09 12:55 | P.BOP_ITS ---
Brief Operative Note Date of Service: 06/09/21 Pre-op diagnosis: dysphagia Post-op diagnosis: same Procedure: see op note Surgeon: Otoniel Muniz MD Anesthesia: MAC Was an Hosiery Knitter used for this Procedure?: No Estimated blood loss (mL): 0 Condition: stable Disposition: PACU
--- NOTE | 2021-06-09 12:56 | W.PM.OPN ---
Operative Note Operative Note Date of Service: 06/09/21 Narrative: FLEXIBLE TRANSORAL UPPER GASTROINTESTINAL ENDOSCOPY UPPER ENDOSCOPY Consent: Indications for the procedure and potential complications of bleeding, perforation, reaction to medications and missed diagnosis were discussed with the patient and informed consent was obtained. Instrument: Olympus GIF H 190 J mid size upper endoscope Monitoring: Vital signs and clinical assessment, continuous EKG monitoring, Pulse oximetry, Carbon Dioxide monitoring and blood pressure monitoring were done throughout the procedure. FINDINGS: Macerated esophageal tissue at distal esophagus with friability and granularity, narrow at GEJ, couldn;t pass regular EGD scope, balloon dilation done to 10-11, 12 mm in sequential fashion and then scope able to pass easily. There was a tear noted, eventually stopped bleeding. ?Bx taken from distal esophagus and GEJ. Overall mucosa actually seemed less inflammed, probably due to compliance with medications. A moderately large sliding hiatal hernia noted about 4 cm, no mass at GEJ on retroflexion. Stomach and duodenum appeared normal Intervention: Biopsies as noted above, balloon dilation Impression/Findings: stricture, possibly malignant Impression/Findings: stricture hiatal hernia esophagitis PLAN: cont with high dose PPI recall him back in 2-4 weeks to redilate,? temporary stent placement also an option as discussed before with him, await EUS at [facility] as planned, hopefully at end of month soft diet, small pieces, chew thoroughly.
[2021-06-09 13:15] VITALS: BP 107/59; PULSE 84; RESP 20; TEMP 36.6; O2SAT 100
[2021-06-09 13:20] VITALS: O2SAT 100
[2021-06-09 13:30] VITALS: BP 122/79; PULSE 80; RESP 20; TEMP 37.1; O2SAT 99
== END 2021-06-09 14:18 | disposition home or self-care (01) ==
PROVIDERS: PCP Nurse Practitioner Family; Visit Provider Internal Medicine Gastroenterology
PROC: (CPT 43249; principal; 2021-06-09 11:00)
DX: K22.2 Esophageal obstruction (principal); K22.10 Ulcer of esophagus without bleeding; K44.9 Diaphragmatic hernia without obstruction or gangrene; K92.0 Hematemesis; K29.70 Gastritis, unspecified, without bleeding; K29.80 Duodenitis without bleeding; F10.239 Alcohol dependence with withdrawal, unspecified; I10 Essential (primary) hypertension; E11.10 Type 2 diabetes mellitus with ketoacidosis without coma; Z79.4 Long term (current) use of insulin; Z79.899 Other long term (current) drug therapy; Z91.14 Patient's other noncompliance with medication regimen; Z59.0 Homelessness
CPT/HCPCS: 43249; 43239; 82947; 88305; 88312; C1726

== ENCOUNTER 2021-06-24 13:07 | Outpatient (REF) | payer MEDICAID, SELFPAY ==
--- NOTE | ~2021-06-24 | XR_ITS ---
EXAMINATION: XR HAND, LEFT CLINICAL INFORMATION: Left hand effusion. COMPARISON: None TECHNIQUE: PA, lateral, and oblique views of the left hand. FINDINGS: No acute fracture or dislocation. Soft tissue swelling at the distal aspect of the 4th digit with air beneath the nailbed. No radiopaque foreign body or abnormal soft tissue calcification. No significant joint space narrowing or marginal osteophytes. No osseous erosion. XR/XR hand LT min 3V IMPRESSION: Soft tissue swelling at the distal aspect of the 4th digit with air beneath the nailbed. No radiopaque foreign body or acute osseous abnormality.
[2021-06-24 14:48] LABS: Alanine Aminotransferase 15 U/L (0-40); Alkaline Phosphatase 74 U/L (39-117); Anion Gap 13 (12-20); Aspartate Amino Transferase 18 U/L (5-37); Bilirubin Direct < 0.2 mg/dL (0.0-0.5); Bilirubin Total < 0.2 mg/dL (0.0-1.0); Blood Urea Nitrogen 21 mg/dL (9-16); Calcium 9.4 mg/dL (8.4-10.2); Carbon Dioxide 24 mmol/L (22-29); Chloride 100 mmol/L (96-108); Estimated Glomerular Filt Rate > 60; Glucose Random 300 mg/dL (60-115); Potassium 5.7 mmol/L (3.3-5.1); Sodium 131 mmol/L (135-145)
[2021-06-25 08:20] LABS: HBsAGNum1 0.18 S/CO (0.00-0.99); Hepatitis B Surface Antigen Negative (Negative)
[2021-06-25 08:42] LABS: HBS Num1 1.72 mIU/mL (0-7.99); ~Hepatitis B Surface Antibody NONREACTIVE (Nonreactive)
[2021-06-25 09:46] LABS: HBc Num1 8.06 S/CO (0.00-0.79); HBc Num2 8.27 S/CO; HBc Num3 8.27 S/CO; Hepatitis B Core Antibody Reactive (Nonreactive)
[2021-06-26 10:02] LABS: Hepatitis B Core Antibody IgM NON-REACTIVE (NON-REACTIVE)
== END 2021-06-24 13:08 | disposition home or self-care (01) ==
LOC: HO.XRAY 13:07
PROVIDERS: Absent Provider Nurse Practitioner Family; PCP Nurse Practitioner Family; Visit Provider Nurse Practitioner
DX: E11.65 Type 2 diabetes mellitus with hyperglycemia (principal); M25.442 Effusion, left hand
CPT/HCPCS: 36415; 73130; 80048; 80076; 86704; 86705; 86706; 87340

== ENCOUNTER 2021-06-27 11:55 | Day surgery (SDC) | payer MEDICAID, SELFPAY ==
[2021-06-27 13:40] VITALS: BP 141/65; PULSE 66; RESP 16; TEMP 36.9; O2SAT 100
[2021-06-27 13:45] VITALS: BMI 20.8
--- NOTE | 2021-06-27 13:47 | HO.MIDLINE ---
PICC Line Insertion MIDLINE INSERTION Diagnosis: POOR IV ACCESS Indication: NEEDS IV ACCESS FOR EGD PROCEDURE Pertinent Labs: REVIEWED Technique: Using sterile technique including cap and mask, glove and drape, the RIGHT arm was prepped and draped in the usual sterile fashion of full barrier technique with CHG. Using ultrasound guidance, BASILIC vein access was obtained IN SINGLE ATTEMPT BY THIS RN. A SINGLE LUMEN, NON-PASV, (20G X 8CM) MIDLINE was positioned. The procedure was performed in [facility]. Ultrasound was used to document vein patency and for needle entry. A formal ultrasound picture was recorded. Vascular Tractor Operator Helper has released the line for use and it is currently dressed with a StatLock, Tegaderm, and CHG disc. Verification has been performed for blood return and line patency. Arm Circumference: 28.5 CM Equipment: [employer] POWERGLIDE PRO Catheter Type: SINGLE LUMEN, NON-PASV, (20G X 8CM) Lot #: [id number]
[2021-06-27 13:56] LABS: Glucose, Whole Blood 240 mg/dL (60-115)
--- NOTE | 2021-06-27 14:12 | HO.ANESPROP2 ---
[facility] Active Problems Active Problems: All Active Problems (Updated 04/14/21 @ 12:08 by Otoniel Muniz MD) Dysphagia (Acute) Leukocytosis (Acute) Gastritis and duodenitis (Acute) Hematemesis/vomiting blood (Acute) DKA (diabetic ketoacidoses) (Acute) Acute GI bleeding (Acute) RONN (acute kidney injury) (Acute) Bacteremia (Acute) RONN (acute kidney injury) (Acute) Hypokalemia (Acute) Alcohol abuse with withdrawal (Acute) Fever (Acute) Lactic acidosis (Acute) Fever of unknown origin (Acute) Vitamin D deficiency (Acute) HLD (hyperlipidemia) (Acute) HTN (hypertension) (Acute) Esophageal stricture (Acute) Hypophosphatemia (Acute) Supraventricular tachycardia (Acute) Hypomagnesemia (Acute) Type 2 diabetes mellitus (Acute) Past Medical History Medical History Acute alcoholic gastritis Alcohol use disorder, severe, dependence Alcoholism Depressed Diabetes Esophageal stricture Fever of unknown origin Gastritis GIB (gastrointestinal bleeding) Head injury Hepatitis C HLD (hyperlipidemia) HTN (hypertension) Hypomagnesemia Hypophosphatemia Odynophagia On beta cher at home Pancreatitis Seizures Supraventricular tachycardia Type 2 diabetes mellitus Vitamin D deficiency Family History Family History Father Diabetes Family history of problems with anesthesia: No Surgical History Surgical History H/O colonoscopy History of esophagogastroduodenoscopy (EGD) History of Problems with Anesthesia: No Social History Social History Household Members: Spouse and Other Household Members Other:: homeless at present Housing: Homeless Are you a primary career developer to a significant other at home: No Do you presently have visiting nurse or other home services: No Alcohol intake: current Alcohol intake frequency: former alcohol drinker Alcohol type: hard liquor Patient Tobacco Use Status: Never used Tobacco Second Hand Smoke Exposure: No Use of substances other than those prescribed or required for medical reasons: No Are you DNR?: No Advance Directives: Yes Advance Directives on File: Yes Advance Directives Date on File: 12/12/20 service: No Current occupational status: unemployed and disabled Meds Allergies Allergy/AdvReac Type Severity Reaction Status Date / Time No Known Allergies Allergy Verified 04/08/21 12:02 Home Medications Medication Instructions Recorded Confirmed Last Taken Type bupropion HCl 100 mg tablet,12 hr 1 tab PO QAM 03/19/21 03/19/21 Unknown History sustained-release famotidine 40 mg/5 mL (8 mg/mL) 5 ml PO BEDTIME 03/19/21 03/19/21 Unknown History oral suspension folic acid 1 mg tablet 1 tab PO QAM 03/19/21 03/19/21 Unknown History insulin aspart U-100 100 unit/mL 8 unit SUBCUT TID 03/19/21 03/19/21 Unknown History (3 mL) subcutaneous pen (Novolog Flexpen U-100 Insulin aspart) insulin detemir U-100 100 unit/mL 40 unit SUBCUT QPM 03/19/21 03/19/21 Unknown History (3 mL) subcutaneous pen (Levemir FlexTouch U-100 Insulin) lisinopril 20 mg tablet 1 tab PO QAM 03/19/21 03/19/21 Unknown History magnesium oxide 400 mg (241.3 mg 1 tab PO BID 03/19/21 03/19/21 Unknown History magnesium) tablet metoprolol tartrate 25 mg tablet 1 tab PO BID 03/19/21 03/19/21 Unknown History multivitamin 1 tab PO QAM 03/19/21 03/19/21 Unknown History naltrexone 50 mg tablet 1 tab PO QAM 03/19/21 03/19/21 Unknown History omeprazole 40 mg capsule,delayed 1 tab PO BID 03/19/21 03/19/21 Unknown History release sucralfate 100 mg/mL oral 10 ml PO BID 03/19/21 03/19/21 Unknown History suspension (Carafate) thiamine HCl (vitamin B1) 100 mg 1 tab PO QAM 03/19/21 03/19/21 Unknown History tablet trazodone 50 mg tablet 1 tab PO BEDTIME 03/19/21 03/19/21 Unknown History Exam Exam Date and Time: June 27, 2021 141 Height,Weight and Vital Signs: Height 5 ft 8 in Weight 62.142 kg Last Vital Signs Temp 98.4 F 06/27/21 13:40 Pulse 66 06/27/21 13:40 Resp 16 06/27/21 13:40 BP 141/65 H 06/27/21 13:40 Pulse Ox 100 06/27/21 13:40 Pertinent Lab Results Pertinent Lab Results: Laboratory Tests 06/27/21 13:51 POC Glucose 240 H Airway Mallampati Class: II TM Dist: >3cm Neck ROM: Full Heart: RRR Lungs: CTA Assessment and Plan Assessment Anesthesia Assessment: Anesthesia Plan Discussed and Chart Reviewed Final Anesthetic Review Family History of Problems with Anesthesia: No History of Problems with Anesthesia: No NPO: Yes ASA Class: III Final Preanesthetic Review: Meds/Allgs Chart Reviewed, Consent Obtained/Reviewed and Anes Risks/Benef Reviewed Patient Risk: Intermediate Procedure Risk: Intermediate Anesthetic Plan Anesthetic Plan: MAC: Disposition: Standard PACU
--- NOTE | 2021-06-27 14:14 | P.HPSUR_ITS ---
Pre-Procedural Eval Section A Date of Service: 06/27/21 The patient is an INPATIENT: No The History & Physical has been completed within 30 days and I have reviewed it.: No Section B Chief Complaint: Esophageal obstruction Details of Present Illness: Dysphagia, esophageal stricture Relevant Family History (Specify if Yes): No Relevant Social History: None Present Medications: see Short Stay Collaborative assessment Medical History: Significant History (Acute alcoholic gastritis Alcohol use disorder, severe, dependence Alcoholism Depressed Diabetes Esophageal stricture Fever of unknown origin Gastritis GIB (gastrointestinal bleeding) Head injury Hepatitis C HLD (hyperlipidemia) HTN (hypertension) Hypomagnesemia Hypophosphate valente Odynophagia On beta ) History of Previous Operations: Relevant previous surgery/procedure and date(s) (History of EGD, history of colonoscopy) Allergies: Allergies Allergy/AdvReac Type Severity Reaction Status Date / Time No Known Allergies Allergy Verified 04/08/21 12:02 Review of Systems Sugical H&P ROS: Negative: Constitution, Cardiovascular and Respiratory and Yes, Specify: Gastrointestinal (Worsening dysphagia) Exam Surgical H&P Exam: Normal: Heart, Normal: Lungs, Normal: Extremities and Normal: Abdomen Plan Diagnosis/Plan: Unchanged I have reviewed the history and physical and performed a pertinent physical examination on my patient. No changes have occurred unless specified.
--- NOTE | 2021-06-27 14:24 | P.BOP_ITS ---
Brief Operative Note Date of Service: 06/27/21 Pre-op diagnosis: Worsening dysphagia - only able to swallow liquids, chronic esophageal stricture Post-op diagnosis: same Procedure: FLEXIBLE TRANSORAL UPPER GASTROINTESTINAL ENDOSCOPY WITH ESOPHAGEAL BALLOON DILATION Consent: Indications for the procedure and potential complications of bleeding, perforation, reaction to medications and missed diagnosis were discussed with the patient and informed consent was obtained. Instrument: Olympus GIF H 190 mid size upper endoscope Monitoring: Vital signs and clinical assessment, continuous EKG monitoring, Pulse oximetry, Carbon Dioxide monitoring and blood pressure monitoring were done throughout the procedure. Procedure: The patient was placed in the left lateral decubitis position and pre-procedure medications were administered and a bite block was placed. The endoscope was inserted into the mouth and advanced under direct vision to the third part of duodenum. A careful inspection was made as the upper endoscope was withdrawn including a retroflexed examination of the proximal stomach; Findings and interventions are described below. Findings: Larynx: Normal Esophagus: Ulcerated and friable esophageal mucosa at 34 cms with a tight stricture. Unable to pass a mid size upper endoscope through the stricture. Stricture was dilated with a 10, 11 and 12 mm (36 F) CRE balloon x 60 sec at each level. Endoscope passed through the stricture with minimal resistance. GE junction at 36 cms, hiatal hernia 36 to 40 cms. Stomach: Normal appearing gastric mucosa. Grade 4 flap valve on retroflexed examination of the cardia. Duodenum: Normal bulb and descending duodenum Intervention: Balloon dilation as noted above Impression and Post Procedure Diagnosis: Endoscopy Findings: ESOPHAGUS: Tight distal esophageal stricture dilated to 12 mm (36 F) with a CRE balloon. Plan: Patient is scheduled for repeat EGD with dilation and possible stent placement with Dr Muniz on 07/10/21 . Above findings were reviewed with the patient and a handout on Esophageal stricture was given in the discharge area Surgeon: Lonnie Plaza MD Anesthesia: MAC (Dr Khoury) Was an Skiver Machine used for this Procedure?: Yes Skiver Machine: Lois Arizmendi Estimated blood loss (mL): 0 Pathology: none sent Condition: stable Disposition: PACU
[2021-06-27 14:42] VITALS: BP 134/76; PULSE 67; RESP 18; TEMP 36.2; O2SAT 100
--- NOTE | 2021-06-27 14:54 | P.OP_ITS ---
Operative Note Operative Note Date of Service: 06/27/21 Narrative: Pre-op diagnosis:?Worsening dysphagia - only able to swallow liquids, chronic esophageal stricture Post-op diagnosis:?same Procedure:? FLEXIBLE TRANSORAL UPPER GASTROINTESTINAL ENDOSCOPY WITH ESOPHAGEAL BALLOON DILATION Consent:?Indications for the procedure and potential complications of bleeding, perforation, reaction to medications and missed diagnosis were discussed with the patient and informed consent was obtained. Instrument:?Olympus GIF H 190 mid size upper endoscope Monitoring: Vital signs and clinical assessment, continuous EKG monitoring, Pulse oximetry, Carbon Dioxide monitoring and blood pressure monitoring were done throughout the procedure. Procedure:?The patient was placed in the left lateral decubitis position and pre-procedure medications were administered and a bite block was placed. The endoscope was inserted into the mouth and advanced under direct vision to the third part of duodenum. A careful inspection was made as the upper endoscope was withdrawn including a retroflexed examination of the proximal stomach; Findings and interventions are described below. Findings: Larynx:? Normal Esophagus:? Ulcerated and friable esophageal mucosa at 34 cms with a tight stricture.? Unable to pass a mid size upper endoscope through the stricture. ? Stricture was dilated with a 10, 11 and 12 mm (36 F) CRE balloon x 60 sec at each level.? Endoscope passed through the stricture with minimal resistance.? GE junction at 36 cms, hiatal hernia 36 to 40 cms. Stomach:?Normal appearing gastric mucosa.? Grade 4 flap valve on retroflexed examination of the cardia. Duodenum: Normal bulb and descending duodenum Intervention: Balloon dilation as noted above Impression and Post Procedure Diagnosis: Endoscopy Findings: ESOPHAGUS: Tight distal esophageal stricture dilated to 12 mm (36 F) with a CRE balloon. Plan: Patient is scheduled for repeat EGD with dilation and possible stent placement with Dr Muniz on 07/10/21 . Above findings were reviewed with the patient and a handout on Esophageal stricture? was given in the discharge area Surgeon:?Lonnie Plaza MD Anesthesia:?MAC (Dr Khoury) Was an Vending Stand Supervisor used for this Procedure?:?Yes Vending Stand Supervisor:?Lois Arizmendi Estimated blood loss (mL):?0 Pathology:?none sent Condition:?stable Disposition:?PACU
[2021-06-27 14:57] VITALS: BP 133/77; PULSE 70; RESP 16; O2SAT 99
[2021-06-27 15:12] VITALS: BP 148/83; PULSE 63; RESP 16; O2SAT 100
[2021-06-27 15:27] VITALS: BP 147/84; PULSE 66; RESP 16; TEMP 36.2; O2SAT 100
[2021-06-27] MEDS: ondansetron HCL 4 MG/2 ML VIAL IVPUSH (15:27)
== END 2021-06-27 16:08 | disposition home or self-care (01) ==
PROVIDERS: PCP Nurse Practitioner Family; Visit Provider Internal Medicine Gastroenterology
PROC: (CPT 43249; principal; 2021-06-27 13:40)
DX: K22.2 Esophageal obstruction (principal); K22.10 Ulcer of esophagus without bleeding; K44.9 Diaphragmatic hernia without obstruction or gangrene; K29.20 Alcoholic gastritis without bleeding; F10.20 Alcohol dependence, uncomplicated; B19.20 Unspecified viral hepatitis C without hepatic coma; E11.9 Type 2 diabetes mellitus without complications; I10 Essential (primary) hypertension; K85.90 Acute pancreatitis without necrosis or infection, unspecified; R56.9 Unspecified convulsions; Z79.4 Long term (current) use of insulin; Z79.899 Other long term (current) drug therapy
CPT/HCPCS: 43249; 36410; 82947; C1726; J2405

== ENCOUNTER 2021-07-10 09:53 | Day surgery (SDC) | payer MEDICAID, SELFPAY ==
--- NOTE | 2021-07-09 09:42 | HO.ANESPROP2 ---
Documented by User: Annita Neal NP 07/09/21 09:44 HPI - Anesthesia Eval Consult details Narrative: 56yo M for Upper Endoscopy with Balloon Dilitation Last EGD with Dilation 06/2021 with MAC +ETOH abuse PMFSH Active Problems Active Problems: All Active Problems (Updated 04/14/21 @ 12:08 by Otoniel Muniz MD) Dysphagia (Acute) Leukocytosis (Acute) Gastritis and duodenitis (Acute) Hematemesis/vomiting blood (Acute) DKA (diabetic ketoacidoses) (Acute) Acute GI bleeding (Acute) RONN (acute kidney injury) (Acute) Bacteremia (Acute) RONN (acute kidney injury) (Acute) Hypokalemia (Acute) Alcohol abuse with withdrawal (Acute) Fever (Acute) Lactic acidosis (Acute) Fever of unknown origin (Acute) Vitamin D deficiency (Acute) HLD (hyperlipidemia) (Acute) HTN (hypertension) (Acute) Esophageal stricture (Acute) Hypophosphatemia (Acute) Supraventricular tachycardia (Acute) Hypomagnesemia (Acute) Type 2 diabetes mellitus (Acute) Past Medical History Medical History Acute alcoholic gastritis Alcohol use disorder, severe, dependence Alcoholism Depressed Diabetes Esophageal stricture Fever of unknown origin Gastritis GIB (gastrointestinal bleeding) Head injury Hepatitis C HLD (hyperlipidemia) HTN (hypertension) Hypomagnesemia Hypophosphatemia Odynophagia On beta cher at home Pancreatitis Seizures Supraventricular tachycardia Type 2 diabetes mellitus Vitamin D deficiency Family History Family History Father Diabetes Family history of problems with anesthesia: No Surgical History Surgical History H/O colonoscopy History of esophagogastroduodenoscopy (EGD) History of Problems with Anesthesia: No Social History Social History Household Members: Spouse and Other Household Members Other:: homeless at present Housing: Homeless Are you a primary customer care associate to a significant other at home: No Do you presently have visiting nurse or other home services: No Alcohol intake: current Alcohol intake frequency: former alcohol drinker Alcohol type: hard liquor Patient Tobacco Use Status: Never used Tobacco Second Hand Smoke Exposure: No Use of substances other than those prescribed or required for medical reasons: No Are you DNR?: No Advance Directives: No Advance Directives Information Provided: Yes Advance Directives Date on File: 12/12/20 Recently lost weight without trying: Yes How much weight loss: 14-23 pounds service: No Current occupational status: unemployed and disabled Meds Allergies Allergy/AdvReac Type Severity Reaction Status Date / Time No Known Allergies Allergy Verified 04/08/21 12:02 Home Medications Medication Instructions Recorded Confirmed Last Taken Type bupropion HCl 100 mg tablet,12 hr 1 tab PO QAM 03/19/21 03/19/21 Unknown History sustained-release famotidine 40 mg/5 mL (8 mg/mL) 5 ml PO BEDTIME 03/19/21 03/19/21 Unknown History oral suspension folic acid 1 mg tablet 1 tab PO QAM 03/19/21 03/19/21 Unknown History insulin aspart U-100 100 unit/mL 8 unit SUBCUT TID 03/19/21 03/19/21 Unknown History (3 mL) subcutaneous pen (Novolog Flexpen U-100 Insulin aspart) insulin detemir U-100 100 unit/mL 40 unit SUBCUT QPM 03/19/21 03/19/21 Unknown History (3 mL) subcutaneous pen (Levemir FlexTouch U-100 Insulin) lisinopril 20 mg tablet 1 tab PO QAM 03/19/21 03/19/21 Unknown History magnesium oxide 400 mg (241.3 mg 1 tab PO BID 03/19/21 03/19/21 Unknown History magnesium) tablet metoprolol tartrate 25 mg tablet 1 tab PO BID 03/19/21 03/19/21 Unknown History multivitamin 1 tab PO QAM 03/19/21 03/19/21 Unknown History naltrexone 50 mg tablet 1 tab PO QAM 03/19/21 03/19/21 Unknown History omeprazole 40 mg capsule,delayed 1 tab PO BID 03/19/21 03/19/21 Unknown History release sucralfate 100 mg/mL oral 10 ml PO BID 03/19/21 03/19/21 Unknown History suspension (Carafate) thiamine HCl (vitamin B1) 100 mg 1 tab PO QAM 03/19/21 03/19/21 Unknown History tablet trazodone 50 mg tablet 1 tab PO BEDTIME 03/19/21 03/19/21 Unknown History Exam Exam Date and Time: July 09, 2021 0942 Pertinent Lab Results Pertinent Lab Results: Laboratory Tests 03/29/21 06/24/21 22:11 13:16 WBC 10.9 H Hgb 9.6 L Hct 30.9 L Plt Count 481 H Carbon Dioxide 24 BUN 21 H Creatinine 1.08 Repeat Lytes DOS Narrative Narrative: EKG 03/2021 Vent. Rate : 104 BPM ? ? Atrial Rate : 104 BPM ?? P-R Int : 128 ms? QRS Dur : 082 ms ? ? QT Int : 332 ms ? ? ? P-R-T Axes : 068 078 053 degrees ?? QTc Int : 436 ms ? Sinus tachycardia Otherwise normal ECG When compared with ECG of 05-MAR-2021 10:08, No significant change was found Assessment and Plan Assessment Anesthesia Assessment: Chart Reviewed Final Anesthetic Review Family History of Problems with Anesthesia: No History of Problems with Anesthesia: No Documented by User: Nathalia Khoury MD 07/10/21 11:46 PMFSH Past Medical History Medical History Acute alcoholic gastritis Alcohol use disorder, severe, dependence Alcoholism Depressed Diabetes Esophageal stricture Fever of unknown origin Gastritis GIB (gastrointestinal bleeding) Head injury Hepatitis C HLD (hyperlipidemia) HTN (hypertension) Hypomagnesemia Hypophosphatemia Odynophagia On beta cher at home Pancreatitis Seizures Supraventricular tachycardia Type 2 diabetes mellitus Vitamin D deficiency Family History Family History Father Diabetes Surgical History Surgical History H/O colonoscopy History of esophagogastroduodenoscopy (EGD) Social History Social History Household Members: Spouse and Other Household Members Other:: homeless at present Housing: Homeless Are you a primary customer care associate to a significant other at home: No Do you presently have visiting nurse or other home services: No Alcohol intake: current Alcohol intake frequency: former alcohol drinker Alcohol type: hard liquor Patient Tobacco Use Status: Never used Tobacco Second Hand Smoke Exposure: No Use of substances other than those prescribed or required for medical reasons: No Are you DNR?: No Advance Directives: No Advance Directives Information Provided: Yes Advance Directives Date on File: 12/12/20 Recently lost weight without trying: Yes How much weight loss: 14-23 pounds service: No Current occupational status: unemployed and disabled Meds Allergies Allergy/AdvReac Type Severity Reaction Status Date / Time No Known Allergies Allergy Verified 04/08/21 12:02 Home Medications Medication Instructions Recorded Confirmed Last Taken Type bupropion HCl 100 mg tablet,12 hr 1 tab PO QAM 03/19/21 03/19/21 Unknown History sustained-release famotidine 40 mg/5 mL (8 mg/mL) 5 ml PO BEDTIME 03/19/21 03/19/21 Unknown History oral suspension folic acid 1 mg tablet 1 tab PO QAM 03/19/21 03/19/21 Unknown History insulin aspart U-100 100 unit/mL 8 unit SUBCUT TID 03/19/21 03/19/21 Unknown History (3 mL) subcutaneous pen (Novolog Flexpen U-100 Insulin aspart) insulin detemir U-100 100 unit/mL 40 unit SUBCUT QPM 03/19/21 03/19/21 Unknown History (3 mL) subcutaneous pen (Levemir FlexTouch U-100 Insulin) lisinopril 20 mg tablet 1 tab PO QAM 03/19/21 03/19/21 Unknown History magnesium oxide 400 mg (241.3 mg 1 tab PO BID 03/19/21 03/19/21 Unknown History magnesium) tablet metoprolol tartrate 25 mg tablet 1 tab PO BID 03/19/21 03/19/21 Unknown History multivitamin 1 tab PO QAM 03/19/21 03/19/21 Unknown History naltrexone 50 mg tablet 1 tab PO QAM 03/19/21 03/19/21 Unknown History omeprazole 40 mg capsule,delayed 1 tab PO BID 03/19/21 03/19/21 Unknown History release sucralfate 100 mg/mL oral 10 ml PO BID 03/19/21 03/19/21 Unknown History suspension (Carafate) thiamine HCl (vitamin B1) 100 mg 1 tab PO QAM 03/19/21 03/19/21 Unknown History tablet trazodone 50 mg tablet 1 tab PO BEDTIME 03/19/21 03/19/21 Unknown History Exam Airway Heart: RRR Lungs: CTA Assessment and Plan Assessment Anesthesia Assessment: Anesthesia Plan Discussed Final Anesthetic Review NPO: Yes ASA Class: III Final Preanesthetic Review: Meds/Allgs Chart Reviewed, Consent Obtained/Reviewed and Anes Risks/Benef Reviewed Patient Risk: Intermediate Procedure Risk: Intermediate Anesthetic Plan Anesthetic Plan: MAC: Disposition: Standard PACU
[2021-07-10 10:03] VITALS: BMI 21.2
[2021-07-10 10:10] VITALS: BP 124/81; PULSE 80; RESP 16; TEMP 36.3; O2SAT 99
--- NOTE | 2021-07-10 10:20 | PC.NURSE ---
PATIENT IS A HARD IV INSERTION. WARMED ALL FOUR EXTREMITIES. ANESTHESIA BY BEDSIDE TO ATTEMPT IV INSERTION FOR PROCEDURE. CALLED LAB FOR LAB DRAWN AND IS ABLE TO DO FINGER STICK DUE TO A HARD STICK BUT ANESTHESIA WILL DO A I-STAT INSTEAD FOR LAB VALUES. PATIENT AWARE OF PLAN OF CARE.
[2021-07-10 10:23] LABS: Glucose, Whole Blood 178 mg/dL (60-115)
--- NOTE | 2021-07-10 10:40 | PC.NURSE ---
MD GUERRERO INSERTED A 20G TI RIGHT BICEP
[2021-07-10] MEDS: Lactated Ringers 1,000 ML 50 ML IVCONT (10:50)
[2021-07-10 10:57] LABS: Anion Gap 12 (12-20); Carbon Dioxide 25 mmol/L (22-29); Chloride 101 mmol/L (96-108); Potassium 5.3 mmol/L (3.3-5.1); Sodium 133 mmol/L (135-145)
--- NOTE | 2021-07-10 11:50 | MHC.SHP ---
Pre-Procedural Eval Section A Date of Service: 07/10/21 Section B Chief Complaint: Esophageal Obstruction Relevant Family History (Specify if Yes): No Relevant Social History: Alcohol Use Present Medications: see Short Stay Collaborative assessment Medical History: Significant History (Acute alcoholic gastritis Alcohol use disorder, severe, dependence Alcoholism Depressed Diabetes Esophageal stricture Fever of unknown origin Gastritis GIB (gastrointestinal bleeding) Head injury Hepatitis C HLD (hyperlipidemia) HTN (hypertension) Hypomagnesemia Hypophosphatemia Odynophagia On beta ) History of Previous Operations: Relevant previous surgery/procedure and date(s) (H/O colonoscopy History of esophagogastroduodenoscopy (EGD)) Allergies: Allergies Allergy/AdvReac Type Severity Reaction Status Date / Time No Known Allergies Allergy Verified 04/08/21 12:02 Review of Systems Sugical H&P ROS: Negative: Constitution, Cardiovascular, Respiratory, Neurological, Psychiatric, Hem-Onc, Allergic/Immunologic, Gastrointestinal, Genitourinary, Musculoskeletal, Integumentary, Endocrine and Eyes/Ears/Nose/Throat Exam Surgical H&P Exam: Normal: HEENT, Normal: Heart, Normal: Lungs, Normal: Abdomen, Normal: Skin and Normal: Neurological and Significant Findings: Extremities (clubbing of fingers) Plan Diagnosis/Plan: Unchanged I have reviewed the history and physical and performed a pertinent physical examination on my patient. No changes have occurred unless specified.
--- NOTE | 2021-07-10 11:51 | PM.OP ---
Brief Operative Note Date of Service: 07/10/21 Pre-op diagnosis: dysphagia Post-op diagnosis: same Procedure: see op note Surgeon: Otoniel Muniz MD Anesthesia: MAC Was an Rail Doweling Machine Operator used for this Procedure?: No Estimated blood loss (mL): 0 Condition: stable Disposition: PACU
--- NOTE | 2021-07-10 11:52 | W.PM.OPN ---
Operative Note Operative Note Date of Service: 07/10/21 Narrative: FLEXIBLE TRANSORAL UPPER GASTROINTESTINAL ENDOSCOPY UPPER ENDOSCOPY Consent: Indications for the procedure and potential complications of bleeding, perforation, reaction to medications and missed diagnosis were discussed with the patient and informed consent was obtained. Instrument: Olympus GIF H 190 J mid size upper endoscope Monitoring: Vital signs and clinical assessment, continuous EKG monitoring, Pulse oximetry, Carbon Dioxide monitoring and blood pressure monitoring were done throughout the procedure. FINDINGS: Macerated esophageal tissue at distal esophagus with friability and granularity but much improved as compared to before, narrow at GEJ, couldn;t pass regular EGD scope, balloon dilation done to 10-11, 12 mm in sequential fashion and then scope able to pass easily. Jumbo bx taken from distal esophagus and GEJ. Overall mucosa actually seemed less inflammed, probably due to compliance with medications. Scarring noted in mid esophagus with pallor. A moderately large sliding hiatal hernia noted about 4 cm, no mass at GEJ on retroflexion. Stomach and duodenum appeared normal Intervention: Biopsies as noted above, balloon dilation Impression/Findings: stricture, possibly malignant, improed ulceration and inflammation of esophagus Impression/Findings: stricture hiatal hernia esophagitis PLAN: cont with high dose PPI he told me he does not want further Ix and would not want XRT, chemo or surgery even iof stricture is malignant, he want only to have a stent,. Advised to think it over as stent would make it harder for him to get EUS and bx. He again missed his apptm at [facility] for EUS> If he still wants a stent then can place. soft diet, small pieces, chew thoroughly.
--- NOTE | 2021-07-10 12:01 | PC.NURSE ---
ANTI AWARE OF POTASSIUM AND SODIUM LEVEL. OK TO PROCEED WITH PROCEDURE.
[2021-07-10 13:03] VITALS: BP 120/61; PULSE 75; RESP 16; TEMP 36.2; O2SAT 100
[2021-07-10 13:18] VITALS: BP 132/84; PULSE 83; RESP 18; O2SAT 98
[2021-07-10 13:36] VITALS: BP 144/77; PULSE 78; RESP 18; TEMP 36.3; O2SAT 98
--- NOTE | 2021-07-10 13:50 | PC.NURSE ---
pt getting dressed. states his thumb and two fingers are numb. hg=[facility]. + radial pulse +capillary refill all fingers pinkright upper arm where iv was wnl. [facility]. shoulder shrug even. tiger Dr. Hernandez to see pt in discharge.
--- NOTE | 2021-07-10 14:15 | PC.NURSE ---
Dr lopez seen pt in discharge ok to go home. will follow up with phone call tomorrow
== END 2021-07-10 14:40 | disposition home or self-care (01) ==
PROVIDERS: Nurse Practitioner; PCP Nurse Practitioner Family; Visit Provider Internal Medicine Gastroenterology
PROC: (CPT 43249; principal; 2021-07-10 13:20)
DX: K22.2 Esophageal obstruction (principal); K20.90 Esophagitis, unspecified without bleeding; K44.9 Diaphragmatic hernia without obstruction or gangrene; E11.9 Type 2 diabetes mellitus without complications; I10 Essential (primary) hypertension
CPT/HCPCS: 43249; 43239; 36415; 80051; 82947; 88305; C1726

== ENCOUNTER → 2021-08-04 12:45 | Outpatient (BNVA) | payer MEDICAID, SELFPAY | PROVIDERS: PCP Nurse Practitioner Family; Visit Provider Internal Medicine | DX: E11.9 Type 2 diabetes mellitus without complications (principal); E55.9 Vitamin D deficiency, unspecified; E78.5 Hyperlipidemia, unspecified; I10 Essential (primary) hypertension; Z79.4 Long term (current) use of insulin | CPT/HCPCS: 82947; 83036; 96372; 99212; J1815 ==

== ENCOUNTER 2021-08-13 07:44 | Day surgery (SDC) | payer MEDICAID, SELFPAY ==
--- NOTE | 2021-08-12 13:16 | P.CONAN_ITS ---
Documented by User: Annita Neal NP 08/12/21 13:18 HPI - Anesthesia Eval Consult details Narrative: 56yo M for Upper Endoscopy with esophageal stent Last EGD with Dilation 07/2021 with MAC +ETOH abuse PMFSH Active Problems Active Problems: All Active Problems (Updated 04/14/21 @ 12:08 by Otoniel Muniz MD) Dysphagia (Acute) Leukocytosis (Acute) Gastritis and duodenitis (Acute) Hematemesis/vomiting blood (Acute) DKA (diabetic ketoacidoses) (Acute) Acute GI bleeding (Acute) RONN (acute kidney injury) (Acute) Bacteremia (Acute) RONN (acute kidney injury) (Acute) Hypokalemia (Acute) Alcohol abuse with withdrawal (Acute) Fever (Acute) Lactic acidosis (Acute) Fever of unknown origin (Acute) Vitamin D deficiency (Acute) HLD (hyperlipidemia) (Acute) HTN (hypertension) (Acute) Esophageal stricture (Acute) Hypophosphatemia (Acute) Supraventricular tachycardia (Acute) Hypomagnesemia (Acute) Type 2 diabetes mellitus (Acute) Past Medical History Medical History Acute alcoholic gastritis Alcohol use disorder, severe, dependence Alcoholism Depressed Diabetes Esophageal stricture Fever of unknown origin Gastritis GIB (gastrointestinal bleeding) Head injury Hepatitis C HLD (hyperlipidemia) HTN (hypertension) Hypomagnesemia Hypophosphatemia Odynophagia On beta cher at home Pancreatitis Seizures Supraventricular tachycardia Type 2 diabetes mellitus Vitamin D deficiency Family History Family History Father Diabetes Family history of problems with anesthesia: No Surgical History Surgical History H/O colonoscopy History of esophagogastroduodenoscopy (EGD) History of Problems with Anesthesia: No Social History Social History Household Members: Significant Other and Other Household Members Other:: girlfriend Cindy Egan Housing: House Are you a primary manager intensive care to a significant other at home: No Do you presently have visiting nurse or other home services: No Alcohol intake: former Patient Tobacco Use Status: Never used Tobacco Second Hand Smoke Exposure: No Use of substances other than those prescribed or required for medical reasons: No Are you DNR?: No Advance Directives: Yes Advance Directives on File: Yes Advance Directives Date on File: 12/12/20 service: No Current occupational status: unemployed and disabled Meds Allergies Allergy/AdvReac Type Severity Reaction Status Date / Time No Known Allergies Allergy Verified 04/08/21 12:02 Home Medications Medication Instructions Recorded Confirmed Last Taken Type insulin aspart U-100 100 unit/mL 8 unit SUBCUT TID 03/19/21 08/04/21 Unknown History (3 mL) subcutaneous pen (Novolog Flexpen U-100 Insulin aspart) insulin detemir U-100 100 unit/mL 40 unit SUBCUT QPM 03/19/21 08/04/21 Unknown History (3 mL) subcutaneous pen (Levemir FlexTouch U-100 Insulin) lisinopril 20 mg tablet 1 tab PO QAM 03/19/21 03/19/21 Unknown History magnesium oxide 400 mg (241.3 mg 1 tab PO BID 03/19/21 08/04/21 Unknown History magnesium) tablet metoprolol tartrate 25 mg tablet 1 tab PO BID 03/19/21 03/19/21 Unknown History multivitamin 1 tab PO QAM 03/19/21 08/04/21 Unknown History trazodone 50 mg tablet 1 tab PO BEDTIME 03/19/21 08/04/21 Unknown History Exam Exam Date and Time: August 12, 2021 1316 Narrative Narrative: EKG 03/2021 Vent. Rate : 104 BPM ? ? Atrial Rate : 104 BPM ?? P-R Int : 128 ms? QRS Dur : 082 ms ? ? QT Int : 332 ms ? ? ? P-R-T Axes : 068 078 053 degrees ?? QTc Int : 436 ms ? Sinus tachycardia Otherwise normal ECG When compared with ECG of 05-MAR-2021 10:08, No significant change was found Assessment and Plan Assessment Anesthesia Assessment: Chart Reviewed Final Anesthetic Review Family History of Problems with Anesthesia: No History of Problems with Anesthesia: No Documented by User: Adwoa Steele MD 08/13/21 08:55 PMFSH Past Medical History Medical History Acute alcoholic gastritis Alcohol use disorder, severe, dependence Alcoholism Depressed Diabetes Esophageal stricture Fever of unknown origin Gastritis GIB (gastrointestinal bleeding) Head injury Hepatitis C HLD (hyperlipidemia) HTN (hypertension) Hypomagnesemia Hypophosphatemia Odynophagia On beta cher at home Pancreatitis Seizures Supraventricular tachycardia Type 2 diabetes mellitus Vitamin D deficiency Family History Family History Father Diabetes Surgical History Surgical History H/O colonoscopy History of esophagogastroduodenoscopy (EGD) Social History Social History Household Members: Significant Other and Other Household Members Other:: girlfriend Cindy Egan Housing: House Are you a primary manager intensive care to a significant other at home: No Do you presently have visiting nurse or other home services: No Alcohol intake: former Patient Tobacco Use Status: Never used Tobacco Second Hand Smoke Exposure: No Use of substances other than those prescribed or required for medical reasons: No Are you DNR?: No Advance Directives: Yes Advance Directives on File: Yes Advance Directives Date on File: 12/12/20 service: No Current occupational status: unemployed and disabled Meds Allergies Allergy/AdvReac Type Severity Reaction Status Date / Time No Known Allergies Allergy Verified 04/08/21 12:02 Home Medications Medication Instructions Recorded Confirmed Last Taken Type insulin aspart U-100 100 unit/mL 8 unit SUBCUT TID 03/19/21 08/04/21 Unknown History (3 mL) subcutaneous pen (Novolog Flexpen U-100 Insulin aspart) insulin detemir U-100 100 unit/mL 40 unit SUBCUT QPM 03/19/21 08/04/21 Unknown History (3 mL) subcutaneous pen (Levemir FlexTouch U-100 Insulin) lisinopril 20 mg tablet 1 tab PO QAM 05/12/21 05/12/21 Unknown History magnesium oxide 400 mg (241.3 mg 1 tab PO BID 03/19/21 08/04/21 Unknown History magnesium) tablet metoprolol tartrate 25 mg tablet 1 tab PO BID 03/19/21 03/19/21 Unknown History multivitamin 1 tab PO QAM 03/19/21 08/04/21 Unknown History trazodone 50 mg tablet 1 tab PO BEDTIME 03/19/21 08/04/21 Unknown History Exam Airway Mallampati Class: II TM Dist: >3cm Neck ROM: Full
[2021-08-13 08:13] VITALS: BP 138/73; PULSE 80; RESP 16; TEMP 36.5; O2SAT 100; BMI 20.2
[2021-08-13 08:32] LABS: Glucose, Whole Blood 122 mg/dL (60-115)
--- NOTE | 2021-08-13 08:53 | MHC.SHP ---
Pre-Procedural Eval Section A Date of Service: 08/13/21 Section B Chief Complaint: esophageal obstruction Relevant Family History (Specify if Yes): No Relevant Social History: Alcohol Use (alcohol abuse and tobacco use) Present Medications: see Short Stay Collaborative assessment Medical History: Significant History (Acute alcoholic gastritis Alcohol use disorder, severe, dependence Alcoholism Depressed Diabetes Esophageal stricture Fever of unknown origin Gastritis GIB (gastrointestinal bleeding) Head injury Hepatitis C HLD (hyperlipidemia) HTN (hypertension) Hypomagnesemia Hypophosphatemia Odynophagia On beta ) History of Previous Operations: Relevant previous surgery/procedure and date(s) (egd with dilation) Allergies: Allergies Allergy/AdvReac Type Severity Reaction Status Date / Time No Known Allergies Allergy Verified 04/08/21 12:02 Review of Systems Sugical H&P ROS: Negative: Constitution, Cardiovascular, Respiratory, Neurological, Psychiatric, Hem-Onc, Allergic/Immunologic, Gastrointestinal, Genitourinary, Musculoskeletal, Integumentary, Endocrine and Eyes/Ears/Nose/Throat Exam Surgical H&P Exam: Normal: HEENT, Normal: Heart, Normal: Lungs, Normal: Abdomen, Normal: Skin and Normal: Neurological and Significant Findings: Extremities (clubbing) Plan Diagnosis/Plan: Unchanged I have reviewed the history and physical and performed a pertinent physical examination on my patient. No changes have occurred unless specified.
--- NOTE | 2021-08-13 08:54 | P.OP_ITS ---
Operative Note Operative Note Date of Service: 08/13/21 Narrative: UPPER ENDOSCOPY Consent: Indications for the procedure and potential complications of bleeding, perforation, reaction to medications and missed diagnosis were discussed with the patient and informed consent was obtained. Instrument: Olympus GIF H 190 J mid size upper endoscope Monitoring: Vital signs and clinical assessment, continuous EKG monitoring, Pulse oximetry, Carbon Dioxide monitoring and blood pressure monitoring were done throughout the procedure. FINDINGS: Esophageal tissue at distal esophagus much improved with no slough or ulceration as seen on prior occasions. Still narrow at GEJ, couldn;t pass re gular EGD scope, balloon dilation done to 10-11, 12 mm in sequential fashion and then scope able to pass easily. bx taken from distal esophagus and GEJ. Overall mucosa is markedly improved, due to compliance with medications. Scarring noted in mid esophagus with pallor as before with some moderate esophagitis at the GEJ. A moderately large sliding hiatal hernia noted about 4 cm, no mass at GEJ on retroflexion. Stomach and duodenum appeared normal Intervention: Biopsies as noted above, balloon dilation Impression/Findings: stricture, possibly malignant but given improvement with anti acid meds benign stricture also possible. Impression/Findings: stricture hiatal hernia esophagitis PLAN: cont with high dose PPI and carafate? soft diet, small pieces, chew thoroughly plan for 14 mm stent placement in 2 weeks or so using fluoroscopy -prob keep in for 4-6 weeks and then upsize.
--- NOTE | 2021-08-13 08:54 | PM.OP ---
Brief Operative Note Date of Service: 08/13/21 Pre-op diagnosis: stricture, esophagus Post-op diagnosis: same Procedure: see op note Surgeon: Otoniel Muniz MD Anesthesia: MAC Was an Care Transition Coordinator used for this Procedure?: No Estimated blood loss (mL): 0 Condition: stable Disposition: PACU
--- NOTE | 2021-08-13 09:57 | HO.MIDLINE_ITS ---
PICC Line Insertion MIDLINE INSERTION Diagnosis: PREOP, DIFFICULT IV ACCESS Indication: NEEDS IV ACCESS FOR ENDOSCOPY Pertinent Labs: REVIEWED Technique: Using sterile technique including cap and mask, glove and drape, the RIGHT arm was prepped and draped in the usual sterile fashion of full barrier technique with CHG. Using ultrasound guidance, BASILIC vein access was obtained IN SINGLE ATTEMPT BY THIS RN. A SINGLE LUMEN, NON-PASV, (18G x 8CM) MIDLINE was positioned. The procedure was performed in [facility]. Ultrasound was used to document vein patency and for needle entry. Vascular Global Marketing Operations Manager has released the line for use and it is currently dressed with a StatLock, Tegaderm, and CHG disc. Verification has been performed for blood return and line patency. Arm Circumference: 29 CM Equipment: Faves POWERGLIDE PRO MIDLINE Catheter Type: SINGLE LUMEN, NON-PASV, (18G X 8CM) Lot #: [id number]
[2021-08-13 10:22] VITALS: BP 123/74; PULSE 79; RESP 14; TEMP 36.4; O2SAT 100
[2021-08-13 10:37] VITALS: BP 112/92; PULSE 71; RESP 18; TEMP 36.4; O2SAT 100
== END 2021-08-13 11:35 | disposition home or self-care (01) ==
PROVIDERS: PCP Nurse Practitioner Family; Visit Provider Internal Medicine Gastroenterology
PROC: (CPT 43249; principal; 2021-08-13 09:20)
DX: K22.2 Esophageal obstruction (principal); K44.9 Diaphragmatic hernia without obstruction or gangrene; K20.80 Other esophagitis without bleeding; F10.20 Alcohol dependence, uncomplicated; K29.20 Alcoholic gastritis without bleeding; I10 Essential (primary) hypertension; E11.9 Type 2 diabetes mellitus without complications; B19.20 Unspecified viral hepatitis C without hepatic coma; Z79.899 Other long term (current) drug therapy
CPT/HCPCS: 43249; 43239; 36410; 82947; 88305; C1726

== ENCOUNTER 2021-09-08 11:05 | Day surgery (SDC) | payer MEDICAID, SELFPAY ==
--- NOTE | 2021-09-05 14:16 | HO.ANESPROP2 ---
HPI - Anesthesia Eval Consult details Narrative: 56yo M for Upper Endoscopy with esophageal stent Last EGD with Dilation 08/13/2021 with MAC +ETOH abuse PMFSH Active Problems Active Problems: All Active Problems (Updated 04/14/21 @ 12:08 by Otnoiel Muniz MD) Dysphagia (Acute) Leukocytosis (Acute) Gastritis and duodenitis (Acute) Hematemesis/vomiting blood (Acute) DKA (diabetic ketoacidoses) (Acute) Acute GI bleeding (Acute) RONN (acute kidney injury) (Acute) Bacteremia (Acute) RONN (acute kidney injury) (Acute) Hypokalemia (Acute) Alcohol abuse with withdrawal (Acute) Fever (Acute) Lactic acidosis (Acute) Fever of unknown origin (Acute) Vitamin D deficiency (Acute) HLD (hyperlipidemia) (Acute) HTN (hypertension) (Acute) Esophageal stricture (Acute) Hypophosphatemia (Acute) Supraventricular tachycardia (Acute) Hypomagnesemia (Acute) Type 2 diabetes mellitus (Acute) Past Medical History Medical History (Updated 09/16/21 @ 00:03 by Keren Alarcon) Acute alcoholic gastritis Alcohol use disorder, severe, dependence Alcoholism Depressed Diabetes Difficult airway for intubation Esophageal stricture Fever of unknown origin Gastritis GIB (gastrointestinal bleeding) Head injury Hepatitis C HLD (hyperlipidemia) HTN (hypertension) Hypomagnesemia Hypophosphatemia Odynophagia On beta cher at home Pancreatitis Seizures Supraventricular tachycardia Type 2 diabetes mellitus Vitamin D deficiency Family History Family History Father Diabetes Family history of problems with anesthesia: No Surgical History Surgical History H/O colonoscopy History of esophagogastroduodenoscopy (EGD) History of Problems with Anesthesia: No Social History Social History Household Members: Significant Other Household Members Other:: girlfriend Cindy Egan Housing: House Are you a primary laboratory animal care veterinarian to a significant other at home: No Do you presently have visiting nurse or other home services: No Alcohol intake: former Patient Tobacco Use Status: Never used Tobacco Second Hand Smoke Exposure: No Advance Directives Date on File: 12/12/20 service: No Current occupational status: unemployed and disabled Meds Allergies Allergy/AdvReac Type Severity Reaction Status Date / Time No Known Allergies Allergy Verified 04/08/21 12:02 Home Medications Medication Instructions Recorded Confirmed Last Taken Type insulin aspart U-100 100 unit/mL 8 unit SUBCUT TID 03/19/21 09/09/21 09/07/21 History (3 mL) subcutaneous pen (Novolog Flexpen U-100 Insulin aspart) insulin detemir U-100 100 unit/mL 20 unit SUBCUT QPM 03/19/21 09/09/21 09/07/21 History (3 mL) subcutaneous pen (Levemir FlexTouch U-100 Insulin) trazodone 50 mg tablet 1 tab PO BEDTIME 03/19/21 09/09/21 09/08/21 History famotidine 40 mg/5 mL (8 mg/mL) 5 ml PO BEDTIME 09/09/21 09/09/21 Unknown History oral suspension naltrexone microspheres 380 mg 4 ml IM Q4W 09/09/21 09/09/21 08/20/21 History intramuscular suspension,extended release (Vivitrol) Exam Exam Date and Time: September 05, 2021 1416 Narrative Narrative: EKG 03/2021 Vent. Rate : 104 BPM ? ? Atrial Rate : 104 BPM ?? P-R Int : 128 ms? QRS Dur : 082 ms ? ? QT Int : 332 ms ? ? ? P-R-T Axes : 068 078 053 degrees ?? QTc Int : 436 ms ? Sinus tachycardia Otherwise normal ECG When compared with ECG of 05-MAR-2021 10:08, No significant change was found Assessment and Plan Assessment Anesthesia Assessment: Chart Reviewed Final Anesthetic Review Family History of Problems with Anesthesia: No History of Problems with Anesthesia: No
[2021-09-08] VITALS (13 sets, daily range): BP systolic 133–160; BP diastolic 70–81; PULSE 74–92; RESP 16–22; TEMP 36.3–36.7; O2SAT 98–100; BMI 20.2
--- NOTE | ~2021-09-08 | FL_ITS ---
EXAMINATION: XR FLUOROSCOPY WITH IMAGES CLINICAL INFORMATION: Esophageal stent placement COMPARISON: None. TECHNIQUE: Fluoroscopy performed by Dr. Dru Edwards. Fluoroscopy time: 0.8 minutes DAP: 4.2 mGycm2 Images: 3 FINDINGS: Fluoroscopy guidance was performed by the operating room for esophageal stent placement. Initial image demonstrates scope in the distal thoracic esophagus. Final image demonstrates wall stent in the distal thoracic esophagus. FL/FL guidance in OR IMPRESSION: Fluoroscopy guidance for esophageal stent placement.
--- NOTE | 2021-09-08 12:50 | MHC.SHP ---
Pre-Procedural Eval Section A Date of Service: 09/08/21 Section B Chief Complaint: esophageal obstruction Details of Present Illness: refractory esophageal stricture Relevant Social History: Alcohol Use Allergies: Allergies Allergy/AdvReac Type Severity Reaction Status Date / Time No Known Allergies Allergy Verified 04/08/21 12:02 Review of Systems Sugical H&P ROS: Negative: Constitution, Cardiovascular, Respiratory, Neurological, Psychiatric, Hem-Onc, Allergic/Immunologic, Gastrointestinal, Genitourinary, Musculoskeletal, Integumentary, Endocrine and Eyes/Ears/Nose/Throat Exam Surgical H&P Exam: Normal: HEENT, Normal: Heart, Normal: Lungs, Normal: Extremities, Normal: Abdomen, Normal: Skin and Normal: Neurological Plan Diagnosis/Plan: Unchanged I have reviewed the history and physical and performed a pertinent physical examination on my patient. No changes have occurred unless specified. Pros and cons of stent placement discussed including migration, chest pain and worsening GERD as well as benefit of remodelling and and improving patency of esophagus
[2021-09-08] MEDS: Lactated Ringers 1,000 ML 100 ML IVCONT (12:57)
[2021-09-08 13:08] LABS: Glucose, Whole Blood 156 mg/dL (60-115)
--- NOTE | 2021-09-08 14:14 | PM.OP ---
Brief Operative Note Date of Service: 09/08/21 Pre-op diagnosis: esophageal stricture Post-op diagnosis: same Procedure: see op note Surgeon: Otoniel Muniz MD Anesthesia: GETA and MAC Was an Adhesive Bonding Machine Operator used for this Procedure?: No Estimated blood loss (mL): 0 Condition: stable Disposition: PACU
--- NOTE | 2021-09-08 14:15 | W.PM.OPN ---
Operative Note Operative Note Date of Service: 09/08/21 Narrative: Procedure Description: EGD FLEXIBLE TRANSORAL UPPER GASTROINTESTINAL ENDOSCOPY UPPER ENDOSCOPY Consent: Indications for the procedure and potential complications of bleeding, perforation, reaction to medications and missed diagnosis were discussed with the patient and informed consent was obtained. Instrument: Olympus GIF H 190 J mid size upper endoscope Monitoring: Vital signs and clinical assessment, continuous EKG monitoring, Pulse oximetry, Carbon Dioxide monitoring and blood pressure monitoring were done throughout the procedure. Procedure: The patient was placed in the left lateral decubitis position and pre-procedure medications were administered and a bite block was placed. The endoscope was inserted into the mouth and advanced under direct vision to the third part of duodenum. A careful inspection was made as the upper endoscope was withdrawn including a retroflexed examination of the proximal stomach; Findings and interventions are described below. Findings: Esophageal tissue at distal esophagus much improved with no slough or ulceration as seen on prior occasions. Still narrow at GEJ, couldn;t pass regular EGD scope due to fibrotic stricture, so slim scope used and the stricture limits were marked with external skin markers and was about 4 cm. A therapeutic scope was then passed and a biliary wire was used to traverse the stricture. Using a combination of fluoroscopy and direct endoscopic vision a 14 mm x 6 cm fully covered stent was placed with good placement as noted on endoscopy and X ray. A moderately large sliding hiatal hernia noted about 4 cm, no mass at GEJ on retroflexion. Stomach and duodenum appeared normal Intervention: esophageal stent placement Impression/Findings: esophageal stricture, improvement in esophagitis and ulceration PLAN: cont with high dose PPi and carafate diet with clears only for 24 hr then can advance to pureed diet, will give leaflet to patient about what to avoid. will consider bringing him back in 4-6 weeks for uptitration to 18 mm stent depending on clinical situation, will advise to come back if any worsening chest pain or symptoms of stent migration.
[2021-09-08] MEDS: ondansetron HCL 4 MG/2 ML VIAL IVPUSH (15:14)
== END 2021-09-08 17:25 | disposition home or self-care (01) ==
PROVIDERS: PCP Nurse Practitioner Family; Visit Provider Internal Medicine Gastroenterology
PROC: 0DJ08ZZ Inspection of Upper Intestinal Tract, Via Natural or Artificial Opening Endoscopic (ICD-10-PCS; CPT 43235; principal; 2021-09-08 12:40)
DX: K22.2 Esophageal obstruction (principal); K44.9 Diaphragmatic hernia without obstruction or gangrene; K21.00 Gastro-esophageal reflux disease with esophagitis, without bleeding; K22.10 Ulcer of esophagus without bleeding; K29.20 Alcoholic gastritis without bleeding; F10.20 Alcohol dependence, uncomplicated; R56.9 Unspecified convulsions; E11.9 Type 2 diabetes mellitus without complications; Z79.4 Long term (current) use of insulin; Z79.899 Other long term (current) drug therapy
CPT/HCPCS: 43266; 82947; C1769; C1874; J1100; J2250; J2405; J2550; J3010

== ENCOUNTER 2021-09-09 02:44 | Inpatient (IN) | payer MEDICAID, SELFPAY ==
[2021-09-09] VITALS (14 sets, daily range): BP systolic 114–176; BP diastolic 69–93; PULSE 84–124; RESP 15–20; TEMP 36.2–38.4; O2SAT 96–100; BMI 21.7
--- NOTE | ~2021-09-09 | XR_ITS ---
EXAMINATION: XR CHEST CLINICAL INFORMATION: Epigastric pain. Status post esophageal stent placement. COMPARISON: 05/09/2021. TECHNIQUE: Frontal view of the chest was obtained. FINDINGS: A stent is now evident within the distal esophagus. Cardiac and mediastinal contours are within normal limits and unchanged. No appreciable pneumomediastinum. Lungs are clear. No consolidation, pneumothorax, or pleural effusion. No acute osseous findings. XR/XR chest 1V IMPRESSION: No acute cardiopulmonary findings. New esophageal stent.
--- NOTE | ~2021-09-09 | CT_ITS ---
EXAMINATION: CT CHEST, ABDOMEN AND PELVIS WITHOUT CONTRAST. CLINICAL INFORMATION: Status post esophageal stent placement with pain and vomiting. COMPARISON: CT chest dated from 05/09/[address] chest abdomen and pelvis dated from 12/12/2020. TECHNIQUE: Multidetector volumetric imaging was performed from the thoracic inlet through the pubic symphysis without intravenous contrast. Sagittal and coronal reformatted images were obtained on the technologist's workstation. This CT examination was performed using dose optimization techniques as appropriate, variously including the following: *Automated exposure control *Adjustment of mA and/or kV according to patient size (this includes techniques or standardized protocols for targeted exams where dose is matched to indication/reason for exam; i.e. extremities or head) *Use of iterative reconstruction technique DLP: 463 mGy-cm FINDINGS: CHEST: Lung: There is a new focal groundglass opacity in the right upper lobe on image 171 of series 6. There are additional new foci of groundglass opacities more inferiorly in the right upper lobe for example as visualized on image 207 of series 6. There is a new groundglass nodule measuring 3 mm in the lingula on image 307 of series 6. A 5 mm pulmonary nodule in the medial aspect of the right upper lobe on image 96 of series 6 is unchanged. A 4 mm posteriorly located right upper lobe pulmonary nodule on image 103 of series 6 is unchanged. A 2 mm pulmonary nodule in the lateral aspect of the right upper lobe on image 109 of series 6 is stable. There is a stable 3 mm pulmonary nodule in the left upper lobe on image 222 of series 6. A 2 mm pulmonary nodule in the left upper lobe on image 176 of series 6 appears to be intraluminal and is likely an area of mucus plugging. There is redemonstration of two pockets of air adjacent to the trachea on the right side, most consistent with tracheal diverticuli and unchanged. The main airways are patent. Mediastinum: There has been placement of an esophageal stent projecting over the distal esophagus. The lumen of the stent is almost entirely opacified by fluid attenuating material. The esophagus surrounding the stent appears to be wall thickened, which is increase when compared to the most recent prior chest CT from May. There is no evidence of drainable collections. The heart is of normal size. No pericardial effusion. Mild coronary calcifications and atherosclerotic disease of the thoracic aorta which is of normal diameter. Normal appearance of the thyroid gland. A prominent posterior mediastinal lymph node adjacent to the lower esophagus on the right side on image 44 of series 3 is best delineated on prior studies with intravenous contrast. There are a few other smaller mediastinal lymph nodes that are stable. Pericardium/Pleura: No significant effusion. No pleural mass or thickening. Chest Wall/Axilla: No pathologically enlarged lymph nodes. ABDOMEN/PELVIS: Peritoneal Space:No significant free air or free fluid identified. Liver, Gallbladder, Biliary Tree: The liver is normal in size, shape, and attenuation. No focal hepatic lesion or biliary ductal dilatation is present. The gallbladder is unremarkable with no evidence of radiopaque gallstones, gallbladder wall thickening, or obvious pericholecystic inflammatory changes. Pancreas: Atrophic with several parenchymal calcifications, similar to prior and likely sequela of chronic pancreatitis. There is redemonstration of dilatation of the main pancreatic duct in the head, neck and body up to 1 cm. There are probably stones within the main pancreatic duct for example as visualized on image 159 of series 10 measuring up to 9 mm. Spleen: Unremarkable. Adrenal Glands: Unremarkable. Kidneys and Ureters: The kidneys are normal in size, shape, and attenuation. No hydronephrosis, hydroureter, or calculi seen. No perinephric stranding. Bladder: Unremarkable. Gastrointestinal Tract: The stomach and the small bowel are nondilated. There is colonic diverticulosis but no surrounding inflammatory changes to suggest active diverticulitis. No bowel obstruction. Normal appendix. Moderate amount of stool burden throughout the colon and rectum. Abdominal Wall: Enlarged right axillary lymph nodes are not significantly changed, for example a 1 cm in maximum short axis lymph node on the right side on image 8 of series 3. Lymphovascular Structures: Prominent upper abdominal lymph nodes for instance anterior to the left adrenal gland measuring up to 9 mm image 31 of series 11 and posterior to the stomach measuring 5 mm in maximum short axis in image 29 of series 11 are not significantly changed. Mildly increased mesenteric haziness in the upper abdomen of uncertain clinical significance. Scattered atherosclerotic disease of the abdominal aorta which is of normal diameter. Pelvic Viscera: Prostatomegaly. Coarse intraprostatic parenchymal calcifications. Osseus Structures: Multilevel vertebral body height loss, for instance at L4, unchanged. No acute or aggressive osseous abnormalities. Nonaggressive appearing sclerotic focus on the right iliac crest on image 416 of series 10 is unchanged and likely a bone island. Old fractures at the left seventh and eighth ribs. CT/CT abdomen pelvis wo con IMPRESSION: Newly placed lower esophageal stent which is almost entirely opacified with debris of uncertain etiology, possibly water or enteral feeds, correlate clinically for patency. There is more pronounced wall thickening within the esophagus surrounding the stent, which is likely related with blood products and inflammatory changes from the recent procedure. No drainable collections. Attention to this on subsequent examinations is recommended. There are new groundglass opacities in the the lungs, predominantly in the right upper lobe, which are worrisome for an acute infectious or inflammatory process, or also possible aspiration. Recommend a short-term follow-up to ensure resolution. Stable axillary, mediastinal and upper abdominal lymph nodes. There is increased mesenteric haziness in the upper abdomen of uncertain clinical significance, this could be reactive in the setting of a recent procedure. Correlate clinically and with lipase levels as mild pancreatitis could manifest similarly. Again noted a complex appearance of the pancreatic duct which is dilated with likely several intraluminal stones. This is unchanged. If clinically indicated, this could be further evaluated with an MRCP.
--- NOTE | 2021-09-09 03:31 | PC.NURSE ---
PT TO ED VIA AMBULANCE AFTER GETTING A STENT PLACED, HERE TODAY, IN STOMACH. PT NOW C/O NAUSEA AND VOMITING X 1 DAY. PT ARRIVES ALERT, RESPIRATIONS EASY, N/L. PT AWAITING FOR MD'S EVAL.
--- NOTE | 2021-09-09 04:00 | ED.ABDPAIN ---
HPI - Abdominal Pain General Chief Complaint: Abdominal Pain Stated Complaint: N/V Time Seen by Provider: 09/09/21 04:00 Source: patient Mode of arrival: EMS History of Present Illness HPI narrative: This is a 56-year-old male with history of diabetes who presents with epigastric pain and persistent nausea and vomiting of brownish material since his esophageal stent was placed yesterday by Dr. Muniz. Patient denies any shortness of breath, chest pain, fevers, chills since the procedure. Related Data Home Medications Medication Instructions Recorded Confirmed insulin aspart U-100 100 unit/mL 8 unit SUBCUT TID 03/19/21 08/04/21 (3 mL) subcutaneous pen (Novolog Flexpen U-100 Insulin aspart) insulin detemir U-100 100 unit/mL 40 unit SUBCUT QPM 03/19/21 08/04/21 (3 mL) subcutaneous pen (Levemir FlexTouch U-100 Insulin) lisinopril 20 mg tablet 1 tab PO QAM 03/19/21 03/19/21 magnesium oxide 400 mg (241.3 mg 1 tab PO BID 03/19/21 08/04/21 magnesium) tablet metoprolol tartrate 25 mg tablet 1 tab PO BID 03/19/21 03/19/21 multivitamin 1 tab PO QAM 03/19/21 08/04/21 trazodone 50 mg tablet 1 tab PO BEDTIME 03/19/21 08/04/21 Previous Rx's Medication Instructions Recorded blood sugar diagnostic (OneTouch #100 ea 11/16/20 Ultra Blue Test Strip) blood-glucose meter (OneTouch #1 ea 11/16/20 Ultra2 Meter) lancets 33 gauge ([email or web address] Delica #100 ea 11/16/20 Lancets) lancing device with lancets kit #1 ea 11/16/20 (OneTouch Delica Plus Lanc Dev) sucralfate 100 mg/mL oral 10 ml PO BID #420 ml 03/30/21 suspension (Carafate) cholecalciferol (vitamin D3) 50 50 mcg PO DAILY 30 Days #30 cap 08/04/21 mcg (2,000 unit) capsule sucralfate 100 mg/mL oral 10 ml PO BID #840 ml 08/13/21 suspension (Carafate) Allergies Allergy/AdvReac Type Severity Reaction Status Date / Time No Known Allergies Allergy Verified 04/08/21 12:02 Review of Systems Review of Systems Pertinent positives and negatives as stated in HPI 10 point review of systems is otherwise negative. Physical Exam Vital Signs: Vital Signs: Last Vital Signs Temp 98.6 F 09/09/21 09:04 Pulse 88 09/09/21 09:04 Resp 15 09/09/21 09:04 BP 171/79 H 09/09/21 09:04 Pulse Ox 98 09/09/21 09:04 Body Mass Index 21.7 VITAL SIGNS: Reviewed. GENERAL: Well developed, well nourished, in no acute distress. HEAD: Normocephalic/atraumatic EYES: PERRLA, EOMI OROPHARYNX: no oral lesions noted, posterior pharynx clear NECK: Supple, no adenopathy LUNGS: Normal breath sounds. No adventitious sounds or accessory muscle use. SpO2<100> CARDIOVASCULAR: Regular rate and rhythm without noted murmurs ABDOMEN: Soft, tenderness in epigastrium without rebound, non-distended with bowel sounds. SKIN: Inspection of the skin reveals no rashes NEUROLOGIC: Alert and oriented x 4. Strength and sensation to light touch were grossly intact x 4. Course Course Course Narrative: This is a 56-year-old male with history and clinical presentation concerning for possible complication related with recent stent placement. Patient received antibiotics, IV fluids, and antiemetics. Review of all investigations significant bilateral opacities, and CT scan findings suggesting obstructed stent. The CT findings were discussed with Gastroenterology who plans to take patient to OR today or tomorrow. MDM - Abdominal Pain Lab Data Result diagrams: 09/09/21 05:07 09/09/21 05:07 Labs: Lab Results 09/09/21 09/09/21 09/09/21 Range/Units 04:50 05:07 05:07 WBC 16.1 H (4.8-10.8) X10*3/uL RBC 5.48 (4.60-5.80) X10*6/uL Hgb 13.6 L (14.0-18.0) g/dl Hct 42.1 (42.0-52.0) % MCV 76.8 L (80.0-98.0) fL MCH 24.8 L (27.0-33.0) pg MCHC 32.3 (31.0-36.0) g/dl RDW 14.6 (11.0-16.0) % Plt Count 328 (160-400) X10*3/uL MPV 9.8 (9.4-12.4) fL Immature Gran % (Auto) 0.6 H (0.0-0.4) % Neut % (Auto) 85.5 H (45-73) % Lymph % (Auto) 7.8 L (20-40) % [place] % (Auto) 6.0 (2-11) % Eos % (Auto) 0.0 (0-4) % Baso % (Auto) 0.1 (0-2) % Lymph # (Auto) 1.3 (1.2-4.9) X10*3/uL [place] # (Auto) 1.0 (0.1-1.2) X10*3/uL Eos # (Auto) 0.0 (0.0-0.4) X10*3/uL Baso # (Auto) 0.0 (0.0-0.2) X10*3/uL Abs Immat Gran (auto) 0.09 H (0.00-0.03) X10*3/uL Absolute Neuts (auto) 13.76 H (2.0-8.3) x10*3/uL Absolute Nucleated RBC 0.000 (0.0-0.012) X10*3/uL Nucleated RBC % (auto) 0.0 (0.0-0.2) /100WBC PT (9.9-13.0) SEC INR (0.9-1.1) Sodium 135 (135-145) mmol/L Potassium 4.6 (3.3-5.1) mmol/L Chloride 91 L (96-108) mmol/L Carbon Dioxide 25 (22-29) mmol/L Anion Gap 24 H (12-20) BUN 31 H (9-16) mg/dL Creatinine 1.42 H (0.5-1.4) mg/dL Estim Creat Clear Calc 53.4 Estimated GFR 52 POC Glucose 358 H* (60-115) mg/dL Random Glucose 401 H* (60-115) mg/dL Lactic Acid (0.5-2.0) mmol/L Lactic Acid Fup @ 2Hr (0.5-2.0) mmol/L Calcium 10.4 H D (8.4-10.2) mg/dL Total Bilirubin 0.8 (0.0-1.0) mg/dL AST 19 (5-37) U/L ALT 16 (0-40) U/L Alkaline Phosphatase 99 D (39-117) U/L Total Protein 9.1 H (6.5-8.0) g/dL Albumin 4.4 (3.5-5.0) g/dL Lipase 30 (8-78) U/L COVID-19 ([facility]) (Negative) COVID-19 Clin Com Blood Type Antibody Screen 09/09/21 09/09/21 09/09/21 Range/Units 05:07 05:20 05:20 WBC (4.8-10.8) X10*3/uL RBC (4.60-5.80) X10*6/uL Hgb (14.0-18.0) g/dl Hct (42.0-52.0) % MCV (80.0-98.0) fL MCH (27.0-33.0) pg MCHC (31.0-36.0) g/dl RDW (11.0-16.0) % Plt Count (160-400) X10*3/uL MPV (9.4-12.4) fL Immature Gran % (Auto) (0.0-0.4) % Neut % (Auto) (45-73) % Lymph % (Auto) (20-40) % [place] % (Auto) (2-11) % Eos % (Auto) (0-4) % Baso % (Auto) (0-2) % Lymph # (Auto) (1.2-4.9) X10*3/uL [place] # (Auto) (0.1-1.2) X10*3/uL Eos # (Auto) (0.0-0.4) X10*3/uL Baso # (Auto) (0.0-0.2) X10*3/uL Abs Immat Gran (auto) (0.00-0.03) X10*3/uL Absolute Neuts (auto) (2.0-8.3) x10*3/uL Absolute Nucleated RBC (0.0-0.012) X10*3/uL Nucleated RBC % (auto) (0.0-0.2) /100WBC PT 12.4 (9.9-13.0) SEC INR 1.1 (0.9-1.1) Sodium (135-145) mmol/L Potassium (3.3-5.1) mmol/L Chloride (96-108) mmol/L Carbon Dioxide (22-29) mmol/L Anion Gap (12-20) BUN (9-16) mg/dL Creatinine (0.5-1.4) mg/dL Estim Creat Clear Calc Estimated GFR POC Glucose (60-115) mg/dL Random Glucose (60-115) mg/dL Lactic Acid 3.3 H* (0.5-2.0) mmol/L Lactic Acid Fup @ 2Hr (0.5-2.0) mmol/L Calcium (8.4-10.2) mg/dL Total Bilirubin (0.0-1.0) mg/dL AST (5-37) U/L ALT (0-40) U/L Alkaline Phosphatase (39-117) U/L Total Protein (6.5-8.0) g/dL Albumin (3.5-5.0) g/dL Lipase (8-78) U/L COVID-19 ([facility]) Negative (Negative) COVID-19 Clin Com See Note Blood Type Antibody Screen 09/09/21 09/09/21 09/09/21 Range/Units 05:24 07:22 08:07 WBC (4.8-10.8) X10*3/uL RBC (4.60-5.80) X10*6/uL Hgb (14.0-18.0) g/dl Hct (42.0-52.0) % MCV (80.0-98.0) fL MCH (27.0-33.0) pg MCHC (31.0-36.0) g/dl RDW (11.0-16.0) % Plt Count (160-400) X10*3/uL MPV (9.4-12.4) fL Immature Gran % (Auto) (0.0-0.4) % Neut % (Auto) (45-73) % Lymph % (Auto) (20-40) % [place] % (Auto) (2-11) % Eos % (Auto) (0-4) % Baso % (Auto) (0-2) % Lymph # (Auto) (1.2-4.9) X10*3/uL [place] # (Auto) (0.1-1.2) X10*3/uL Eos # (Auto) (0.0-0.4) X10*3/uL Baso # (Auto) (0.0-0.2) X10*3/uL Abs Immat Gran (auto) (0.00-0.03) X10*3/uL Absolute Neuts (auto) (2.0-8.3) x10*3/uL Absolute Nucleated RBC (0.0-0.012) X10*3/uL Nucleated RBC % (auto) (0.0-0.2) /100WBC PT (9.9-13.0) SEC INR (0.9-1.1) Sodium (135-145) mmol/L Potassium (3.3-5.1) mmol/L Chloride (96-108) mmol/L Carbon Dioxide (22-29) mmol/L Anion Gap (12-20) BUN (9-16) mg/dL Creatinine (0.5-1.4) mg/dL Estim Creat Clear Calc Estimated GFR POC Glucose 312 H (60-115) mg/dL Random Glucose (60-115) mg/dL Lactic Acid (0.5-2.0) mmol/L Lactic Acid Fup @ 2Hr 1.8 (0.5-2.0) mmol/L Calcium (8.4-10.2) mg/dL Total Bilirubin (0.0-1.0) mg/dL AST (5-37) U/L ALT (0-40) U/L Alkaline Phosphatase (39-117) U/L Total Protein (6.5-8.0) g/dL Albumin (3.5-5.0) g/dL Lipase (8-78) U/L COVID-19 ([facility]) (Negative) COVID-19 Clin Com Blood Type O Positive Antibody Screen NEGATIVE Discharge Plan Discharge Clinical Impression: Nausea & vomiting, Pneumonia, Hyperglycemia, RONN (acute kidney injury) Patient Disposition: Admitted As Inpatient [facility] Past Medical History Source: nursing notes reviewed Medical History Acute alcoholic gastritis Alcohol use disorder, severe, dependence Alcoholism Depressed Diabetes Esophageal stricture Fever of unknown origin Gastritis GIB (gastrointestinal bleeding) Head injury Hepatitis C HLD (hyperlipidemia) HTN (hypertension) Hypomagnesemia Hypophosphatemia Odynophagia On beta cher at home Pancreatitis Seizures Supraventricular tachycardia Type 2 diabetes mellitus Vitamin D deficiency Surgical History H/O colonoscopy History of esophagogastroduodenoscopy (EGD) Family History Family History Father Diabetes Social History Social History Household Members: Significant Other and Other Household Members Other:: girlfriend Cindy Jignesh Housing: House Are you a primary career consultant to a significant other at home: No Do you presently have visiting nurse or other home services: No Alcohol intake: former Patient Tobacco Use Status: Never used Tobacco Second Hand Smoke Exposure: No Use of substances other than those prescribed or required for medical reasons: No Advance Directives: Yes Advance Directives on File: Yes Advance Directives Date on File: 12/12/20 service: No Current occupational status: unemployed and disabled
[2021-09-09] MEDS: ondansetron HCL 4 MG/2 ML VIAL IVPUSH ×3 (04:27→11:35)
[2021-09-09] MEDS: 0.9 % Sodium Chloride 1,000 ML 999 ML IV ×2 (04:27→07:04)
[2021-09-09 04:55] LABS: Glucose, Whole Blood 358 mg/dL (60-115)
--- NOTE | 2021-09-09 04:56 | PC.NURSE ---
IN ROOM FOR EVAL. PT ARRIVES ALERT, RESPIRATIONS EASY, N/L. PT IS ACTIVELY NAUSEA AND VOMITING AT THIS TIME. PT IS A VERY DIFFICULT STICK. IV PLACED TO RIGHT FA, PT MEDICATED WITH ZOFRAN FOR NAUSEA AND NS UP AND RUNNING W/O, SITE INTACT. MD IN ROOM WITH U/S FOR LAB DRAW. PT REQUESTING ICE WATER. AWARE.
[2021-09-09 05:16] LABS: Basophils Percent Auto 0.1 % (0-2); Hematocrit 42.1 % (42.0-52.0); Hemoglobin 13.6 g/dl (14.0-18.0); Imm Gran Abs Auto 0.09 X10*3/uL (0.00-0.03); Imm Gran Pct Auto 0.6 % (0.0-0.4); Lymphocytes Absolute Auto 1.3 X10*3/uL (1.2-4.9); Lymphocytes Percent Auto 7.8 % (20-40); MANUAL DIFF FLAG NO; Mean Corpuscular HGB Conc 32.3 g/dl (31.0-36.0); Mean Corpuscular Hemoglobin 24.8 pg (27.0-33.0); Mean Corpuscular Volume 76.8 fL (80.0-98.0); Mean Platelet Volume 9.8 fL (9.4-12.4); Neutrophils Absolute Auto 13.76 x10*3/uL (2.0-8.3); Neutrophils Percent Auto 85.5 % (45-73); Platelet Count 328 X10*3/uL (160-400); Red Blood Count 5.48 X10*6/uL (4.60-5.80); Red Cell Distribution Width 14.6 % (11.0-16.0); White Blood Count 16.1 X10*3/uL (4.8-10.8)
[2021-09-09 05:31] LABS: INTERNATIONAL NORM RATIO 1.1 (0.9-1.1); Prothrombin Time 12.4 SEC (9.9-13.0)
[2021-09-09 05:38] LABS: Lactic Acid 3.3 mmol/L (0.5-2.0)
[2021-09-09 05:41] LABS: Alanine Aminotransferase 16 U/L (0-40); Albumin Level 4.4 g/dL (3.5-5.0); Alkaline Phosphatase 99 U/L (39-117); Anion Gap 24 (12-20); Aspartate Amino Transferase 19 U/L (5-37); Bilirubin Total 0.8 mg/dL (0.0-1.0); Blood Urea Nitrogen 31 mg/dL (9-16); Calcium 10.4 mg/dL (8.4-10.2); Carbon Dioxide 25 mmol/L (22-29); Chloride 91 mmol/L (96-108); Creatinine Clr Calc Pharmacy 53.4; Estimated Glomerular Filt Rate 52; Glucose Random 401 mg/dL (60-115); Lipase 30 U/L (8-78); Potassium 4.6 mmol/L (3.3-5.1); Sodium 135 mmol/L (135-145); Total Protein 9.1 g/dL (6.5-8.0)
[2021-09-09 05:42] LABS: COVID-19 Test Negative (Negative); IDNOW Serial# 9DD0AD1C
[2021-09-09] MEDS: Piperacillin Sodium/Tazobactam 3.375 GM in 0.9 % Sodium Chloride 50 ML IV ×2 (06:09→20:04)
--- NOTE | 2021-09-09 06:11 | PC.NURSE ---
pt medicated as per emar.
--- NOTE | 2021-09-09 06:53 | PC.NURSE ---
PT CLEANED UP WITH FRESH LINENS AND GOWN. PT MOVES EASILY IN STRETCHER. PT WAKES TO VOICE AND IN NAD AT THIS TIME. REPORT GIVEN TO RONNIE CUEVAS.
--- NOTE | 2021-09-09 07:21 | PC.NURSE ---
Assumed care of patient. Pt appears uncomfortable and is still acitively vomiting brown liquid with no noted blood or coffee grounds. MD notified and pt medicated with additional zofran. Pt has 2nd liter of NS infusing at this time.
[2021-09-09 07:25] LABS: Glucose, Whole Blood 312 mg/dL (60-115)
[2021-09-09 07:25] LABS: Reflex Lactate? Lactic Acid Added
[2021-09-09 08:28] LABS: ~Lactic Acid-LAB USE ONLY 1.8 mmol/L (0.5-2.0)
--- NOTE | 2021-09-09 10:27 | PHA.MEDREC ---
Pharmacy Consult ? Medication Reconciliation Pharmacy has completed the medication reconciliation. Patient states that he hasn't taken any of his tablet based medications since his stomach stated having issues 6 months ago. He states he only takes his injections and liquid medications. The one tablet he states he takes daily is the trazadone for sleep. Nilam Medley, PharmD [phone]
--- NOTE | 2021-09-09 11:01 | P.HPHOSP_ITS ---
History of Present Illness Date of Service: 09/09/21 Attending physician on admission: Robert Olivarez Chief Complaint: nausea and vomiting 56-year-old man presenting to the ER persistent nausea and vomiting since having esophageal stent placed yesterday. He has been unable to keep any food down. He denies chest pain, shortness of breath, fever, chills. His blood pressure had remained elevated likely secondary to the vomiting. In the ED, he was given Zosyn, IV fluids, Zofran in the ER. Will be admitted for further management and treatment intractable nausea and vomiting and obstructed esophageal stent. Review of Systems Review of Systems: Denies any recent fever chills or decrease in appetite respiratory denies any shortness of breath coverage production cardiovascular denies chest pain gastrointestinal see HPI genitourinary denies any dysuria frequency or hematuria musculoskeletal denies any joint pain or swelling neuropsych denies any weakness or seizures all other systems reviewed are negative [facility] Medical History Acute alcoholic gastritis Alcohol use disorder, severe, dependence Alcoholism Depressed Diabetes Esophageal stricture Fever of unknown origin Gastritis GIB (gastrointestinal bleeding) Head injury Hepatitis C HLD (hyperlipidemia) HTN (hypertension) Hypomagnesemia Hypophosphatemia Odynophagia On beta cher at home Pancreatitis Seizures Supraventricular tachycardia Type 2 diabetes mellitus Vitamin D deficiency Family History Father Diabetes Pertinent family history: . Surgical History H/O colonoscopy History of esophagogastroduodenoscopy (EGD) Social History Household Members: Significant Other and Other Household Members Other:: girlfriend Cindy Egan Housing: House Are you a primary customer care voice consultant to a significant other at home: No Do you presently have visiting nurse or other home services: No Alcohol intake: former Patient Tobacco Use Status: Never used Tobacco Second Hand Smoke Exposure: No Use of substances other than those prescribed or required for medical reasons: No Advance Directives: Yes Advance Directives on File: Yes Advance Directives Date on File: 12/12/20 service: No Current occupational status: unemployed and disabled Meds Allergies Allergy/AdvReac Type Severity Reaction Status Date / Time No Known Allergies Allergy Verified 04/08/21 12:02 Active Medications: Current Medications Labetalol HCl (Labetalol Hcl 100 Mg/20 Ml Vial) 20 mg IVPUSH Q20M PRN PRN Reason: Sbp > 180 Ondansetron HCl (Ondansetron Hcl 4 Mg/2 Ml Vial) 4 mg IVPUSH Q8H PRN PRN Reason: Nausea and Vomiting Pharmacy Consult (Consult Rx Perform Med Rec) 1 each MISCELLANE ONCE PRN PRN Reason: Consult order Sodium Chloride (0.9 % Sodium Chloride Flush 3 Ml Syringe) [facility] Medications Medication Instructions Recorded Confirmed Last Taken Type insulin aspart U-100 100 unit/mL 8 unit SUBCUT TID 03/19/21 09/09/21 09/07/21 History (3 mL) subcutaneous pen (Novolog Flexpen U-100 Insulin aspart) insulin detemir U-100 100 unit/mL 20 unit SUBCUT QPM 03/19/21 09/09/21 09/07/21 History (3 mL) subcutaneous pen (Levemir FlexTouch U-100 Insulin) trazodone 50 mg tablet 1 tab PO BEDTIME 03/19/21 09/09/21 09/08/21 History famotidine 40 mg/5 mL (8 mg/mL) 5 ml PO BEDTIME 09/09/21 09/09/21 Unknown His tory oral suspension naltrexone microspheres 380 mg 4 ml IM Q4W 09/09/21 09/09/21 08/20/21 History intramuscular suspension,extended release (Vivitrol) Physical Exam Vital Signs and Narrative: Vital Signs: Last Vital Signs Temp 98.6 F 09/09/21 09:04 Pulse 88 09/09/21 09:04 Resp 15 09/09/21 09:04 BP 171/79 H 09/09/21 09:04 Pulse Ox 98 09/09/21 09:04 Body Mass Index 21.7 Appearing in no acute distress head is normocephalic atraumatic eyes pupils are PERRLA sclera is anicteric mouth throat mucous membranes are intact and moist neck is supple no lymphadenopathy, no JVD noted lung sounds are clear to auscultation heart regular rate rhythm, clear S1, S2 positive bowel sounds, abdomen is soft, nontender neuro patient is alert x3, no focal deficits Results Labs CBC and Chem 7: 09/09/21 05:07 09/09/21 05:07 Labs: Laboratory Results - last 24 hr 09/09/21 09/09/21 09/09/21 04:50 05:07 05:07 MCV 76.8 L MCH 24.8 L MCHC 32.3 RDW 14.6 Plt Count 328 MPV 9.8 Immature Gran % (Auto) 0.6 H Neut % (Auto) 85.5 H Lymph % (Auto) 7.8 L [place] % (Auto) 6.0 Eos % (Auto) 0.0 Baso % (Auto) 0.1 Lymph # (Auto) 1.3 [place] # (Auto) 1.0 Eos # (Auto) 0.0 Baso # (Auto) 0.0 Abs Immat Gran (auto) 0.09 H Absolute Neuts (auto) 13.76 H Absolute Nucleated RBC 0.000 Nucleated RBC % (auto) 0.0 PT INR Anion Gap 24 H Estim Creat Clear Calc 53.4 Estimated GFR 52 POC Glucose 358 H* Random Glucose 401 H* Lactic Acid Lactic Acid Fup @ 2Hr Calcium 10.4 H D Total Bilirubin 0.8 AST 19 ALT 16 Alkaline Phosphatase 99 D Total Protein 9.1 H Albumin 4.4 Lipase 30 COVID-19 ([facility]) COVID-Optimal Blue Com Blood Type Antibody Screen 09/09/21 09/09/21 09/09/21 05:07 05:20 05:20 MCV MCH MCHC RDW Plt Count MPV Immature Gran % (Auto) Neut % (Auto) Lymph % (Auto) [place] % (Auto) Eos % (Auto) Baso % (Auto) Lymph # (Auto) [place] # (Auto) Eos # (Auto) Baso # (Auto) Abs Immat Gran (auto) Absolute Neuts (auto) Absolute Nucleated RBC Nucleated RBC % (auto) PT 12.4 INR 1.1 Anion Gap Estim Creat Clear Calc Estimated GFR POC Glucose Random Glucose Lactic Acid 3.3 H* Lactic Acid Fup @ 2Hr Calcium Total Bilirubin AST ALT Alkaline Phosphatase Total Protein Albumin Lipase COVID-19 ([facility]) Negative COVID-T4 Media See Note Blood Type Antibody Screen 09/09/21 09/09/21 09/09/21 05:24 07:22 08:07 MCV MCH MCHC RDW Plt Count MPV Immature Gran % (Auto) Neut % (Auto) Lymph % (Auto) [place] % (Auto) Eos % (Auto) Baso % (Auto) Lymph # (Auto) [place] # (Auto) Eos # (Auto) Baso # (Auto) Abs Immat Gran (auto) Absolute Neuts (auto) Absolute Nucleated RBC Nucleated RBC % (auto) PT INR Anion Gap Estim Creat Clear Calc Estimated GFR POC Glucose 312 H Random Glucose Lactic Acid Lactic Acid Fup @ 2Hr 1.8 Calcium Total Bilirubin AST ALT Alkaline Phosphatase Total Protein Albumin Lipase COVID-19 ([facility]) COVID-19 Clin Com Blood Type O Positive Antibody Screen NEGATIVE Imaging Radiologist's Impressions: Impressions Chest X-Ray 09/09/21 04:03 IMPRESSION: No acute cardiopulmonary findings. New esophageal stent. Abdomen/Pelvis CT 09/09/21 07:23 IMPRESSION: Newly placed lower esophageal stent which is almost entirely opacified with debris of uncertain etiology, possibly water or enteral feeds, correlate clinically for patency. There is more pronounced wall thickening within the esophagus surrounding the stent, which is likely related with blood products and inflammatory changes from the recent procedure. No drainable collections. Attention to this on subsequent examinations is recommended. There are new groundglass opacities in the the lungs, predominantly in the right upper lobe, which are worrisome for an acute infectious or inflammatory process, or also possible aspiration. Recommend a short-term follow-up to ensure resolution. Stable axillary, mediastinal and upper abdominal lymph nodes. There is increased mesenteric haziness in the upper abdomen of uncertain clinical significance, this could be reactive in the setting of a recent procedure. Correlate clinically and with lipase levels as mild pancreatitis could manifest similarly. Again noted a complex appearance of the pancreatic duct which is dilated with likely several intraluminal stones. This is unchanged. If clinically indicated, this could be further evaluated with an MRCP. Chest CT 09/09/21 07:23 IMPRESSION: Newly placed lower esophageal stent which is almost entirely opacified with debris of uncertain etiology, possibly water or enteral feeds, correlate clinically for patency. There is more pronounced wall thickening within the esophagus surrounding the stent, which is likely related with blood products and inflammatory changes from the recent procedure. No drainable collections. Attention to this on subsequent examinations is recommended. There are new groundglass opacities in the the lungs, predominantly in the right upper lobe, which are worrisome for an acute infectious or inflammatory process, or also possible aspiration. Recommend a short-term follow-up to ensure resolution. Stable axillary, mediastinal and upper abdominal lymph nodes. There is increased mesenteric haziness in the upper abdomen of uncertain clinical significance, this could be reactive in the setting of a recent procedure. Correlate clinically and with lipase levels as mild pancreatitis could manifest similarly. Again noted a complex appearance of the pancreatic duct which is dilated with likely several intraluminal stones. This is unchanged. If clinically indicated, this could be further evaluated with an MRCP. Assessment and Plan (1) Intractable nausea and vomiting: Status: Acute (2) RONN (acute kidney injury): Status: Acute (3) HTN (hypertension): Status: Acute (4) Type 2 diabetes mellitus: Status: Acute (5) Aspiration pneumonia: Status: Acute 56-year-old man admitted with intractable nausea and vomiting an obstructed esophageal stent. He had refractory esophageal stricture and stent placement. Significant history of alcohol use. Intractable nausea and vomiting secondary to obstructed esophageal stent. Gastroenterology consultation, will likely need to take to OR today Keep NPO Pain management Antiemetics IV fluids with LR PPI RONN Secondary to nausea and vomiting Continue IV fluids Trend Question of aspiration pneumonia secondary to vomiting IV Zosyn Antiemetics Follow cultures Hypertension with elevated blood pressure IV labetalol as needed for systolic blood pressure over 180 Diabetes mellitus Sliding scale, NPO for now DVT prophylaxis with mechanical compression boots Attending Dr. Olivarez Full code Quality Stroke Does the patient have a stroke diagnosis?: No VTE Prior VTE?: No VTE Risk Level:: Medical - moderate - high VTE Device Contraindication: N/A - Device Ordered VTE Drug Contraindication: Treatment Not Indicated
[2021-09-09] MEDS: Lactated Ringers 1,000 ML 100 ML IVCONT ×2 (11:34→20:00)
[2021-09-09 12:00] LABS: Glucose, Whole Blood 273 mg/dL (60-115)
--- NOTE | 2021-09-09 12:22 | PC.NURSE ---
insulin held because he is NPO
--- NOTE | 2021-09-09 12:47 | PM.GICN ---
History of Present Illness Data of Consult Service Date: 09/09/21 Requesting physician: Nathalia Johnson Primary Care Provider: Unknown Physician HPI Reason for consult: ?stent obstruction 56 yr old m w hx of DM, and prior alcohol abuse who I am asked to see for eval for posisble stent obstruction Patient has esophageal stent placed yesterday for refractory stricture of lower esophagus, uncertain etiology, possibly malignant given imaging on prior occasions with some prominent LN but patient did not want to f/u with EUS and biopsy and rather wanted stenting and conservative treatment Stent was paced yesterday 14 mm x 6 cm and procedure was uneventful with good placement Patient was given clear diet instructions, adn maintains he never ate any prohibited food items. Says since the morning has been nauseated and vomiting with some dry blood. Denies fever, chest pain, abdominal pain or melena CT doen with debris in esophgeal stent which had not migrated ?enteral feed, prior lymphadenopathy, esophgeal thickening and changes of chronic pancreatitis (lipase nml) Review of Systems Review of Systems: Denies any recent fever chills or decrease in appetite respiratory denies any shortness of breath coverage production cardiovascular denies chest pain gastrointestinal see HPI genitourinary denies any dysuria frequency or hematuria musculoskeletal denies any joint pain or swelling neuropsych denies any weakness or seizures all other systems reviewed are negative PMFSH Past Medical History Medical History Acute alcoholic gastritis Alcohol use disorder, severe, dependence Alcoholism Depressed Diabetes Difficult airway for intubation Esophageal stricture Fever of unknown origin Gastritis GIB (gastrointestinal bleeding) Head injury Hepatitis C HLD (hyperlipidemia) HTN (hypertension) Hypomagnesemia Hypophosphatemia Odynophagia On beta cher at home Pancreatitis Seizures Supraventricular tachycardia Type 2 diabetes mellitus Vitamin D deficiency Family History Family History Father Diabetes Surgical History Surgical History H/O colonoscopy History of esophagogastroduodenoscopy (EGD) Social History Social History Household Members: Significant Other Household Members Other:: girlfriend Cindy Egan Housing: House Are you a primary outdoor emergency care technician to a significant other at home: No Do you presently have visiting nurse or other home services: No Alcohol intake: former Patient Tobacco Use Status: Never used Tobacco Second Hand Smoke Exposure: No Use of substances other than those prescribed or required for medical reasons: No Currently Displaying Signs/Symptoms of Drug Intoxication Withdrawal: No Have you been hit, kicked, punched, or otherwise hurt by someone within the past year? If so, by whom?: No Do you feel safe in your current relationship?: Yes Is there a partner from a previous relationship who is making you feel unsafe now?: No Are you made to feel afraid or neglected: No Advance Directives: Yes Advance Directives on File: Yes Advance Directives Date on File: 12/12/20 Do you have thoughts of harming others: None Do you have a plan to hurt others: No Plan Recently lost weight without trying: Yes How much weight loss: 14-23 pounds Eating poorly because of decreased appetite: No Nutrition screen score: 4 Nutrition Risks: Difficulty swallowing service: No Current occupational status: unemployed and disabled Meds Allergies Allergy/AdvReac Type Severity Reaction Status Date / Time No Known Allergies Allergy Verified 04/08/21 12:02 Active Medications: Current Medications Dextrose (Dextrose 50 % 25 Gm/50 Ml Vial) 25 gm IVPUSH Q15M PRN; Protocol PRN Reason: per Hypoglycemia Standing Ord. Glucose (Glucose Gel 15 Gm Gel..Gram.) 15 gm PO Q15M PRN; Protocol PRN Reason: per Hypoglycemia Standing Ord. Lactated Ringer's (Lr) 1,000 mls @ 100 mls/hr IVCONT .Q10H [facility] Last Admin: 09/09/21 11:34 Dose: 100 mls/hr Documented by: Insulin Human Lispro (Insulin Lispro 100 Unit/Ml 3 Ml Vial) 0 unit SUBCUT QIDACHS [facility]; Protocol Last Admin: 09/09/21 12:22 Dose: Not Given Documented by: Labetalol HCl (Labetalol Hcl 100 Mg/20 Ml Vial) 20 mg IVPUSH Q20M PRN PRN Reason: Sbp > 180 Ondansetron HCl (Ondansetron Hcl 4 Mg/2 Ml Vial) 4 mg IVPUSH Q8H PRN PRN Reason: Nausea and Vomiting Last Admin: 09/09/21 11:35 Dose: 4 mg Documented by: Pharmacy Consult (Consult Rx Perform Med Rec) 1 each MISCELLANE ONCE PRN PRN Reason: Consult order Sodium Chloride (0.9 % Sodium Chloride Flush 3 Ml Syringe) 3 ml IVFLUSH QSHIFT [facility] Home Medications Medication Instructions Recorded Confirmed Last Taken Type insulin aspart U-100 100 unit/mL 8 unit SUBCUT TID 03/19/21 09/09/21 09/07/21 History (3 mL) subcutaneous pen (Novolog Flexpen U-100 Insulin aspart) insulin detemir U-100 100 unit/mL 20 unit SUBCUT QPM 03/19/21 09/09/21 09/07/21 History (3 mL) subcutaneous pen (Levemir FlexTouch U-100 Insulin) trazodone 50 mg tablet 1 tab PO BEDTIME 03/19/21 09/09/21 09/08/21 History famotidine 40 mg/5 mL (8 mg/mL) 5 ml PO BEDTIME 09/09/21 09/09/21 Unknown History oral suspension naltrexone microspheres 380 mg 4 ml IM Q4W 09/09/21 09/09/21 08/20/21 History intramuscular suspension,extended release (Vivitrol) Physical Exam Vital Signs: Vital Signs: Last Vital Signs Temp 98.6 F 09/09/21 09:04 Pulse 88 09/09/21 09:04 Resp 15 09/09/21 09:04 BP 114/75 09/09/21 11:59 Pulse Ox 98 09/09/21 09:04 Body Mass Index 21.7 EXAM: GENERAL: The patient is breathing normally, no jaundice, thin--no neck crepitus VITAL SIGNS:see workflow HEENT: Nonicteric sclerae, PERRLA, EOMI. Oropharynx clear. Moist mucous membranes. Conjunctivae appear well perfused. No thyroid mass. CHEST: Chest wall is nontender. HEART: Regular rate and rhythm without murmurs. LUNGS: Clear to auscultation bilaterally. ABDOMEN: Soft, positive bowel sounds, nontender, no organomegaly.no flank tenderness SKIN: No rash, no excessive bruising, petechiae, or purpura. NEUROLOGIC: Cranial nerves II-XII intact without motor/sensory deficit. Psych--nml affect Results Labs CBC & Chem 7: 09/09/21 05:07 09/09/21 05:07 Labs: Short CBC 09/09/21 Range/Units 05:07 WBC 16.1 H (4.8-10.8) X10*3/uL Hgb 13.6 L (14.0-18.0) g/dl Hct 42.1 (42.0-52.0) % Plt Count 328 (160-400) X10*3/uL BMP 09/09/21 05:07 Sodium 135 Potassium 4.6 Chloride 91 L Carbon Dioxide 25 BUN 31 H Creatinine 1.42 H Calcium 10.4 H D Liver Function 09/09/21 Range/Units 05:07 Total Bilirubin 0.8 (0.0-1.0) mg/dL AST 19 (5-37) U/L ALT 16 (0-40) U/L Alkaline Phosphatase 99 D (39-117) U/L Albumin 4.4 (3.5-5.0) g/dL Imaging CT scan - chest: Attestation: I personally reviewed and interpreted this imaging study as follows: My impression: stent in place, debris noted, no perf Assessment and Plan (1) Nausea & vomiting: Status: Acute 1/ nausea and vomiting since stent placement, concern for obstruction possible surreptitious consumption of non recommended foods ddX: 2/2 chronic pancreatitis albeit lipase nml, not in DKa at this time PLAN: 1/ EGD for further assessment 2/ can use IV zofran and PPI meantime Procedures Date of Service Date of Service: 09/09/21
--- NOTE | 2021-09-09 13:56 | PC.NURSE ---
notified dr. marroquin asking for different medication as patient continues to vomit, will continue to monitor.
--- NOTE | 2021-09-09 15:17 | PC.NURSE ---
patient c/o continuous vomiting as well as abd pain now, zofran was administered earlier which is ordered q8h not time for another dose, no pain meds are ordered to give patient, hospitalist was notified of vomiting- no new orders have been given.
[2021-09-09 16:07] LABS: Glucose, Whole Blood 314 mg/dL (60-115)
--- NOTE | 2021-09-09 17:20 | HO.ANESPROP2 ---
[facility] Active Problems Active Problems: All Active Problems (Updated 09/09/21 @ 16:37 by Tonya Egan NP) Aspiration pneumonia (Acute) Intractable nausea and vomiting (Acute) Nausea & vomiting (Acute) Pneumonia (Acute) Hyperglycemia (Acute) RONN (acute kidney injury) (Acute) Dysphagia (Acute) Leukocytosis (Acute) Gastritis and duodenitis (Acute) Hematemesis/vomiting blood (Acute) DKA (diabetic ketoacidoses) (Acute) Acute GI bleeding (Acute) RONN (acute kidney injury) (Acute) Bacteremia (Acute) RONN (acute kidney injury) (Acute) Hypokalemia (Acute) Alcohol abuse with withdrawal (Acute) Fever (Acute) Lactic acidosis (Acute) Fever of unknown origin (Acute) Vitamin D deficiency (Acute) HLD (hyperlipidemia) (Acute) HTN (hypertension) (Acute) Esophageal stricture (Acute) Hypophosphatemia (Acute) Supraventricular tachycardia (Acute) Hypomagnesemia (Acute) Type 2 diabetes mellitus (Acute) Past Medical History Medical History Acute alcoholic gastritis Alcohol use disorder, severe, dependence Alcoholism Depressed Diabetes Esophageal stricture Fever of unknown origin Gastritis GIB (gastrointestinal bleeding) Head injury Hepatitis C HLD (hyperlipidemia) HTN (hypertension) Hypomagnesemia Hypophosphatemia Odynophagia On beta cher at home Pancreatitis Seizures Supraventricular tachycardia Type 2 diabetes mellitus Vitamin D deficiency Family History Family History Father Diabetes Family history of problems with anesthesia: Yes Surgical History Surgical History H/O colonoscopy History of esophagogastroduodenoscopy (EGD) History of Problems with Anesthesia: No Social History Social History Household Members: Significant Other and Other Household Members Other:: girlfriend Cindy Egan Housing: House Are you a primary direct care specialist to a significant other at home: No Do you presently have visiting nurse or other home services: No Alcohol intake: former Patient Tobacco Use Status: Never used Tobacco Second Hand Smoke Exposure: No Use of substances other than those prescribed or required for medical reasons: No Advance Directives: Yes Advance Directives on File: Yes Advance Directives Date on File: 12/12/20 service: No Current occupational status: unemployed and disabled Meds Allergies Allergy/AdvReac Type Severity Reaction Status Date / Time No Known Allergies Allergy Verified 04/08/21 12:02 Active Medications: Current Medications Dextrose (Dextrose 50 % 25 Gm/50 Ml Vial) 25 gm IVPUSH Q15M PRN; Protocol PRN Reason: per Hypoglycemia Standing Ord. Glucose (Glucose Gel 15 Gm Gel..Gram.) 15 gm PO Q15M PRN; Protocol PRN Reason: per Hypoglycemia Standing Ord. Lactated Ringer's (Lr) 1,000 mls @ 100 mls/hr IVCONT .Q10H [facility] Last Admin: 09/09/21 11:34 Dose: 100 mls/hr Documented by: Promethazine HCl 6.25 mg/ (Sodium Chloride) 50.25 mls @ 201 mls/hr IV Q4H PRN PRN Reason: nausea and vomiting Last Infusion: 09/09/21 17:16 Dose: Infused Documented by: Insulin Human Lispro (Insulin Lispro 100 Unit/Ml 3 Ml Vial) 0 unit SUBCUT QIDACHS [facility]; Protocol Last Admin: 09/09/21 12:22 Dose: Not Given Documented by: Labetalol HCl (Labetalol Hcl 100 Mg/20 Ml Vial) 20 mg IVPUSH Q20M PRN PRN Reason: Sbp > 180 Ondansetron HCl (Ondansetron Hcl 4 Mg/2 Ml Vial) 4 mg IVPUSH Q8H PRN PRN Reason: Nausea and Vomiting Last Admin: 09/09/21 11:35 Dose: 4 mg Documented by: Pantoprazole Sodium (Pantoprazole Sodium 40 Mg/10 Ml Vial) 40 mg IVPUSH BID@0630,1630 [facility] Pharmacy Consult (Consult Rx Perform Med Rec) 1 each MISCELLANE ONCE PRN PRN Reason: Consult order Sodium Chloride (0.9 % Sodium Chloride Flush 3 Ml Syringe) [facility] Last Admin: 09/09/21 16:18 Dose: Not Given Documented by: Home Medications Medication Instructions Recorded Confirmed Last Taken Type insulin aspart U-100 100 unit/mL 8 unit SUBCUT TID 03/19/21 09/09/21 09/07/21 History (3 mL) subcutaneous pen (Novolog Flexpen U-100 Insulin aspart) insulin detemir U-100 100 unit/mL 20 unit SUBCUT QPM 03/19/21 09/09/21 09/07/21 History (3 mL) subcutaneous pen (Levemir FlexTouch U-100 Insulin) trazodone 50 mg tablet 1 tab PO BEDTIME 03/19/21 09/09/21 09/08/21 History famotidine 40 mg/5 mL (8 mg/mL) 5 ml PO BEDTIME 09/09/21 09/09/21 Unknown History oral suspension naltrexone microspheres 380 mg 4 ml IM Q4W 09/09/21 09/09/21 08/20/21 History intramuscular suspension,extended release (Vivitrol) Exam Exam Date and Time: September 09, [id number] Height,Weight and Vital Signs: Height 5 ft 8 in Weight 65 kg Last Vital Signs Temp 98.3 F 09/09/21 15:55 Pulse 92 09/09/21 15:55 Resp 20 09/09/21 15:55 BP 175/86 H 09/09/21 15:55 Pulse Ox 100 09/09/21 15:55 Pertinent Lab Results Pertinent Lab Results: Laboratory Tests 09/09/21 09/09/21 09/09/21 04:50 05:07 05:07 WBC 16.1 H RBC 5.48 Hgb 13.6 L Hct 42.1 MCV 76.8 L MCH 24.8 L MCHC 32.3 RDW 14.6 Plt Count 328 MPV 9.8 Immature Gran % (Auto) 0.6 H Neut % (Auto) 85.5 H Lymph % (Auto) 7.8 L [place] % (Auto) 6.0 Eos % (Auto) 0.0 Baso % (Auto) 0.1 Lymph # (Auto) 1.3 [place] # (Auto) 1.0 Eos # (Auto) 0.0 Baso # (Auto) 0.0 Abs Immat Gran (auto) 0.09 H Absolute Neuts (auto) 13.76 H Absolute Nucleated RBC 0.000 Nucleated RBC % (auto) 0.0 PT INR Sodium 135 Potassium 4.6 Chloride 91 L Carbon Dioxide 25 Anion Gap 24 H BUN 31 H Creatinine 1.42 H Estim Creat Clear Calc 53.4 Estimated GFR 52 POC Glucose 358 H* Random Glucose 401 H* Lactic Acid Lactic Acid Fup @ 2Hr Calcium 10.4 H D Total Bilirubin 0.8 AST 19 ALT 16 Alkaline Phosphatase 99 D Total Protein 9.1 H Albumin 4.4 Lipase 30 COVID-19 ([facility]) [employer] Blood Type Antibody Screen 09/09/21 09/09/21 09/09/21 05:07 05:20 05:20 WBC RBC Hgb Hct MCV MCH MCHC RDW Plt Count MPV Immature Gran % (Auto) Neut % (Auto) Lymph % (Auto) [place] % (Auto) Eos % (Auto) Baso % (Auto) Lymph # (Auto) [place] # (Auto) Eos # (Auto) Baso # (Auto) Abs Immat Gran (auto) Absolute Neuts (auto) Absolute Nucleated RBC Nucleated RBC % (auto) PT 12.4 INR 1.1 Sodium Potassium Chloride Carbon Dioxide Anion Gap BUN Creatinine Estim Creat Clear Calc Estimated GFR POC Glucose Random Glucose Lactic Acid 3.3 H* Lactic Acid Fup @ 2Hr Calcium Total Bilirubin AST ALT Alkaline Phosphatase Total Protein Albumin Lipase COVID-19 ([facility]) Negative [employer] See Note Blood Type Antibody Screen 09/09/21 09/09/21 09/09/21 05:24 07:22 08:07 WBC RBC Hgb Hct MCV MCH MCHC RDW Plt Count MPV Immature Gran % (Auto) Neut % (Auto) Lymph % (Auto) [place] % (Auto) Eos % (Auto) Baso % (Auto) Lymph # (Auto) [place] # (Auto) Eos # (Auto) Baso # (Auto) Abs Immat Gran (auto) Absolute Neuts (auto) Absolute Nucleated RBC Nucleated RBC % (auto) PT INR Sodium Potassium Chloride Carbon Dioxide Anion Gap BUN Creatinine Estim Creat Clear Calc Estimated GFR POC Glucose 312 H Random Glucose Lactic Acid Lactic Acid Fup @ 2Hr 1.8 Calcium Total Bilirubin AST ALT Alkaline Phosphatase Total Protein Albumin Lipase COVID-19 ([facility]) [employer] Blood Type O Positive Antibody Screen NEGATIVE 09/09/21 09/09/21 11:56 16:04 WBC RBC Hgb Hct MCV MCH MCHC RDW Plt Count MPV Immature Gran % (Auto) Neut % (Auto) Lymph % (Auto) [place] % (Auto) Eos % (Auto) Baso % (Auto) Lymph # (Auto) [place] # (Auto) Eos # (Auto) Baso # (Auto) Abs Immat Gran (auto) Absolute Neuts (auto) Absolute Nucleated RBC Nucleated RBC % (auto) PT INR Sodium Potassium Chloride Carbon Dioxide Anion Gap BUN Creatinine Estim Creat Clear Calc Estimated GFR POC Glucose 273 H 314 H Random Glucose Lactic Acid Lactic Acid Fup @ 2Hr Calcium Total Bilirubin AST ALT Alkaline Phosphatase Total Protein Albumin Lipase COVID-19 ([facility]) COVID-19 Clin Com Blood Type Antibody Screen Assessment and Plan Final Anesthetic Review Family History of Problems with Anesthesia: Yes History of Problems with Anesthesia: No
[2021-09-09] MEDS: Pantoprazole Sodium 40 MG/10 ML VIAL IVPUSH (17:24)
[2021-09-09] MEDS: Insulin Lispro 100 UNIT/ML 3 ML VIAL SUBCUT (17:24)
--- NOTE | 2021-09-09 17:26 | MHC.SHP ---
Pre-Procedural Eval Section A Date of Service: 09/09/21 The patient is an INPATIENT: Yes The History & Physical has been completed within 30 days and I have reviewed it.: Yes Section B Chief Complaint: Obstructed esophageal stent Allergies: Allergies Allergy/AdvReac Type Severity Reaction Status Date / Time No Known Allergies Allergy Verified 04/08/21 12:02 Plan Diagnosis/Plan: Unchanged I have reviewed the history and physical and performed a pertinent physical examination on my patient. No changes have occurred unless specified.
--- NOTE | 2021-09-09 17:30 | P.CONAN_ITS ---
[facility] Active Problems Active Problems: All Active Problems (Updated 09/09/21 @ 16:37 by Tonya miguel NP) Aspiration pneumonia (Acute) Intractable nausea and vomiting (Acute) Nausea & vomiting (Acute) Pneumonia (Acute) Hyperglycemia (Acute) RONN (acute kidney injury) (Acute) Dysphagia (Acute) Leukocytosis (Acute) Gastritis and duodenitis (Acute) Hematemesis/vomiting blood (Acute) DKA (diabetic ketoacidoses) (Acute) Acute GI bleeding (Acute) RONN (acute kidney injury) (Acute) Bacteremia (Acute) RONN (acute kidney injury) (Acute) Hypokalemia (Acute) Alcohol abuse with withdrawal (Acute) Fever (Acute) Lactic acidosis (Acute) Fever of unknown origin (Acute) Vitamin D deficiency (Acute) HLD (hyperlipidemia) (Acute) HTN (hypertension) (Acute) Esophageal stricture (Acute) Hypophosphatemia (Acute) Supraventricular tachycardia (Acute) Hypomagnesemia (Acute) Type 2 diabetes mellitus (Acute) Past Medical History Medical History Acute alcoholic gastritis Alcohol use disorder, severe, dependence Alcoholism Depressed Diabetes Esophageal stricture Fever of unknown origin Gastritis GIB (gastrointestinal bleeding) Head injury Hepatitis C HLD (hyperlipidemia) HTN (hypertension) Hypomagnesemia Hypophosphatemia Odynophagia On beta cher at home Pancreatitis Seizures Supraventricular tachycardia Type 2 diabetes mellitus Vitamin D deficiency Family History Family History Father Diabetes Family history of problems with anesthesia: Yes Surgical History Surgical History H/O colonoscopy History of esophagogastroduodenoscopy (EGD) History of Problems with Anesthesia: No Social History Social History Household Members: Significant Other and Other Household Members Other:: girlfriend Cindy Egan Housing: House Are you a primary healthcare applications analyst to a significant other at home: No Do you presently have visiting nurse or other home services: No Alcohol intake: former Patient Tobacco Use Status: Never used Tobacco Second Hand Smoke Exposure: No Use of substances other than those prescribed or required for medical reasons: No Advance Directives: Yes Advance Directives on File: Yes Advance Directives Date on File: 12/12/20 service: No Current occupational status: unemployed and disabled Meds Allergies Allergy/AdvReac Type Severity Reaction Status Date / Time No Known Allergies Allergy Verified 04/08/21 12:02 Active Medications: Current Medications Dextrose (Dextrose 50 % 25 Gm/50 Ml Vial) 25 gm IVPUSH Q15M PRN; Protocol PRN Reason: per Hypoglycemia Standing Ord. Glucose (Glucose Gel 15 Gm Gel..Gram.) 15 gm PO Q15M PRN; Protocol PRN Reason: per Hypoglycemia Standing Ord. Lactated Ringer's (Lr) 1,000 mls @ 100 mls/hr IVCONT .Q10H [facility] Last Admin: 09/09/21 11:34 Dose: 100 mls/hr Documented by: Promethazine HCl 6.25 mg/ (Sodium Chloride) 50.25 mls @ 201 mls/hr IV Q4H PRN PRN Reason: nausea and vomiting Last Infusion: 09/09/21 17:16 Dose: Infused Documented by: Insulin Human Lispro (Insulin Lispro 100 Unit/Ml 3 Ml Vial) [facility]; Protocol Last Admin: 09/09/21 17:24 Dose: 8 unit Documented by: Labetalol HCl (Labetalol Hcl 100 Mg/20 Ml Vial) 20 mg IVPUSH Q20M PRN PRN Reason: Sbp > 180 Ondansetron HCl (Ondansetron Hcl 4 Mg/2 Ml Vial) 4 mg IVPUSH Q8H PRN PRN Reason: Nausea and Vomiting Last Admin: 09/09/21 11:35 Dose: 4 mg Documented by: Pantoprazole Sodium (Pantoprazole Sodium 40 Mg/10 Ml Vial) 40 mg IVPUSH BID@0630,1630 [facility] Last Admin: 09/09/21 17:24 Dose: 40 mg Documented by: Pharmacy Consult (Consult Rx Perform Med Rec) 1 each MISCELLANE ONCE PRN PRN Reason: Consult order Sodium Chloride (0.9 % Sodium Chloride Flush 3 Ml Syringe) [facility] Last Admin: 09/09/21 16:18 Dose: Not Given Documented by: Home Medications Medication Instructions Recorded Confirmed Last Taken Type insulin aspart U-100 100 unit/mL 8 unit SUBCUT TID 0509/09/21 09/07/21 History (3 mL) subcutaneous pen (Novolog Flexpen U-100 Insulin aspart) insulin detemir U-100 100 unit/mL 20 unit SUBCUT QPM 03/19/21 09/09/21 09/07/21 History (3 mL) subcutaneous pen (Levemir FlexTouch U-100 Insulin) trazodone 50 mg tablet 1 tab PO BEDTIME 03/19/21 09/09/21 09/08/21 History famotidine 40 mg/5 mL (8 mg/mL) 5 ml PO BEDTIME 09/09/21 09/09/21 Unknown History oral suspension naltrexone microspheres 380 mg 4 ml IM Q4W 09/09/21 09/09/21 08/20/21 History intramuscular suspension,extended release (Vivitrol) Exam Exam Date and Time: September 09, 2021 1730 Height,Weight and Vital Signs: Height 5 ft 8 in Weight 65 kg Last Vital Signs Temp 98.3 F 09/09/21 15:55 Pulse 92 09/09/21 15:55 Resp 20 09/09/21 15:55 BP 175/86 H 09/09/21 15:55 Pulse Ox 100 09/09/21 15:55 Pertinent Lab Results Pertinent Lab Results: Laboratory Tests 09/09/21 09/09/21 09/09/21 04:50 05:07 05:07 WBC 16.1 H RBC 5.48 Hgb 13.6 L Hct 42.1 MCV 76.8 L MCH 24.8 L MCHC 32.3 RDW 14.6 Plt Count 328 MPV 9.8 Immature Gran % (Auto) 0.6 H Neut % (Auto) 85.5 H Lymph % (Auto) 7.8 L [place] % (Auto) 6.0 Eos % (Auto) 0.0 Baso % (Auto) 0.1 Lymph # (Auto) 1.3 [place] # (Auto) 1.0 Eos # (Auto) 0.0 Baso # (Auto) 0.0 Abs Immat Gran (auto) 0.09 H Absolute Neuts (auto) 13.76 H Absolute Nucleated RBC 0.000 Nucleated RBC % (auto) 0.0 PT INR Sodium 135 Potassium 4.6 Chloride 91 L Carbon Dioxide 25 Anion Gap 24 H BUN 31 H Creatinine 1.42 H Estim Creat Clear Calc 53.4 Estimated GFR 52 POC Glucose 358 H* Random Glucose 401 H* Lactic Acid Lactic Acid Fup @ 2Hr Calcium 10.4 H D Total Bilirubin 0.8 AST 19 ALT 16 Alkaline Phosphatase 99 D Total Protein 9.1 H Albumin 4.4 Lipase 30 COVID-19 ([facility]) [employer] Blood Type Antibody Screen 09/09/21 09/09/21 09/09/21 05:07 05:20 05:20 WBC RBC Hgb Hct MCV MCH MCHC RDW Plt Count MPV Immature Gran % (Auto) Neut % (Auto) Lymph % (Auto) [place] % (Auto) Eos % (Auto) Baso % (Auto) Lymph # (Auto) [place] # (Auto) Eos # (Auto) Baso # (Auto) Abs Immat Gran (auto) Absolute Neuts (auto) Absolute Nucleated RBC Nucleated RBC % (auto) PT 12.4 INR 1.1 Sodium Potassium Chloride Carbon Dioxide Anion Gap BUN Creatinine Estim Creat Clear Calc Estimated GFR POC Glucose Random Glucose Lactic Acid 3.3 H* Lactic Acid Fup @ 2Hr Calcium Total Bilirubin AST ALT Alkaline Phosphatase Total Protein Albumin Lipase COVID-19 ([facility]) Negative [employer] See Note Blood Type Antibody Screen 09/09/21 09/09/21 09/09/21 05:24 07:22 08:07 WBC RBC Hgb Hct MCV MCH MCHC RDW Plt Count MPV Immature Gran % (Auto) Neut % (Auto) Lymph % (Auto) [place] % (Auto) Eos % (Auto) Baso % (Auto) Lymph # (Auto) [place] # (Auto) Eos # (Auto) Baso # (Auto) Abs Immat Gran (auto) Absolute Neuts (auto) Absolute Nucleated RBC Nucleated RBC % (auto) PT INR Sodium Potassium Chloride Carbon Dioxide Anion Gap BUN Creatinine Estim Creat Clear Calc Estimated GFR POC Glucose 312 H Random Glucose Lactic Acid Lactic Acid Fup @ 2Hr 1.8 Calcium Total Bilirubin AST ALT Alkaline Phosphatase Total Protein Albumin Lipase COVID-19 ([facility]) [employer] Blood Type O Positive Antibody Screen NEGATIVE 09/09/21 09/09/21 11:56 16:04 WBC RBC Hgb Hct MCV MCH MCHC RDW Plt Count MPV Immature Gran % (Auto) Neut % (Auto) Lymph % (Auto) [place] % (Auto) Eos % (Auto) Baso % (Auto) Lymph # (Auto) [place] # (Auto) Eos # (Auto) Baso # (Auto) Abs Immat Gran (auto) Absolute Neuts (auto) Absolute Nucleated RBC Nucleated RBC % (auto) PT INR Sodium Potassium Chloride Carbon Dioxide Anion Gap BUN Creatinine Estim Creat Clear Calc Estimated GFR POC Glucose 273 H 314 H Random Glucose Lactic Acid Lactic Acid Fup @ 2Hr Calcium Total Bilirubin AST ALT Alkaline Phosphatase Total Protein Albumin Lipase COVID-19 ([facility]) COVID-19 Clin Com Blood Type Antibody Screen Airway TM Dist: >3cm Neck ROM: Full Heart: tachycardic Lungs: CTA Assessment and Plan Final Anesthetic Review Family History of Problems with Anesthesia: Yes History of Problems with Anesthesia: No
[2021-09-09 18:03] LABS: Glucose, Whole Blood 248 mg/dL (60-115)
--- NOTE | 2021-09-09 18:38 | P.BOP_ITS ---
Brief Operative Note Date of Service: 09/09/21 Pre-op diagnosis: ?stent obstruction Post-op diagnosis: same Procedure: see op note Surgeon: Otoniel Muniz MD Anesthesia: GETA and MAC Was an Sludge Control Operator used for this Procedure?: No Estimated blood loss (mL): 0 Condition: stable Disposition: PACU
--- NOTE | 2021-09-09 18:38 | W.PM.OPN ---
Operative Note Operative Note Date of Service: 09/09/21 Narrative: Procedure Description: EGD FLEXIBLE TRANSORAL UPPER GASTROINTESTINAL ENDOSCOPY UPPER ENDOSCOPY Consent: Indications for the procedure and potential complications of bleeding, perforation, reaction to medications and missed diagnosis were discussed with the patient and informed consent was obtained. Instrument: Olympus GIF H 190 J mid size upper endoscope Monitoring: Vital signs and clinical assessment, continuous EKG monitoring, Pulse oximetry, Carbon Dioxide monitoring and blood pressure monitoring were done throughout the procedure. Procedure: The patient was placed in the left lateral decubitis position and pre-procedure medications were administered and a bite block was placed. The endoscope was inserted into the mouth and advanced under direct vision to the third part of duodenum. A careful inspection was made as the upper endoscope was withdrawn including a retroflexed examination of the proximal stomach; Findings and interventions are described below. Findings: Esophageal tissue at proximal esophagus normal. The stent was visualized and the scope was passed thru the stent with ease. No obstruction was noted, no debris or foreign bodies. There was some slough and superficial ulceration at the distal edge of the stent. The rest of stomach and duodenum was normal. The proximal string of the stent was grasped and the stent was removed. Intervention: esophageal stent removed due to intolerance. Impression/Findings: stent removal, no obstruction, distal superficial ulceration and slough. He has been stenosed for so long that he was not really able to tolerate the stent. PLAN: allow clears as tolerated carafate 1 gm liquid QID PPI -pantoprazole 40 mg bid advance diet as tolerated. balloon dilation in 3-4 weeks
[2021-09-09 20:17] LABS: Glucose, Whole Blood 182 mg/dL (60-115)
[2021-09-09] MEDS: traZODone HCL 50 MG TABLET PO (21:18)
[2021-09-10] VITALS: BP 155/83; PULSE 88; RESP 16; TEMP 37.2; O2SAT 99
[2021-09-10] MEDS: Piperacillin Sodium/Tazobactam 3.375 GM in 0.9 % Sodium Chloride 50 ML IV ×2 (01:18→07:46)
[2021-09-10 03:57] VITALS: BP 137/60; PULSE 92; RESP 18; TEMP 37.2; O2SAT 98
[2021-09-10] MEDS: Pantoprazole Sodium 40 MG/10 ML VIAL IVPUSH (05:50)
[2021-09-10] MEDS: Lactated Ringers 1,000 ML 100 ML IVCONT (06:31)
[2021-09-10 07:34] VITALS: BP 160/79; PULSE 81; RESP 18; TEMP 36.1; O2SAT 98
[2021-09-10 07:47] LABS: Glucose, Whole Blood 203 mg/dL (60-115)
[2021-09-10] MEDS: 0.9 % Sodium Chloride Flush 3 ML SYRINGE IVFLUSH (07:51)
--- NOTE | 2021-09-10 10:14 | P.DS_ITS ---
DS: Providers Provider Date of Service: 09/10/21 Date of admission: 09/09/21 10:57 Primary care physician: Unknown Physician Consults: 09/09/21 10:59 Consult to Gastroenterology Routine Consulting Provider: Otoniel Muniz Reason for consultation: obstructed esophageal stent, nausea and vomiting Has provider been notified: No DS: Diagnosis Discharge Diagnosis (1) Nausea & vomiting: Status: Acute DS: Summary Hospital Course Hospital Course: Chief Complaint:? nausea and vomiting ?56-year-old man presenting to the ER persistent nausea and vomiting since having esophageal stent placed yesterday. He has been unable to keep any food down. He denies chest pain, shortness of breath, fever, chills. His blood pressure had remained elevated likely secondary to the vomiting. In the ED, he was given Zosyn, IV fluids, Zofran in the ER.? Will be admitted for further management and treatment intractable nausea and vomiting and obstructed esophageal stent. Hospital coursep: allow clears as tolerated carafate 1 gm liquid QID PPI -pantoprazole 40 mg bid advance diet as tolerated. balloon dilation in 3-4 weeks Time Spent with Patient Time attestation: Total time spent providing and/or coordinating discharge services: Discharge coordination time: Greater than 30 minutes Quality: Stroke Does the patient have a stroke diagnosis?: No Physical Exam Vital Signs: Vital Signs: Last Vital Signs Temp 97.0 F 09/10/21 07:34 Pulse 81 09/10/21 07:34 Resp 18 09/10/21 07:34 BP 160/79 H 09/10/21 07:34 Pulse Ox 98 09/10/21 07:34 Body Mass Index 21.7 General: AO X 3, no acute distress Resp: CTA bilateral CVS: S1,S2,RRR GI: +BS, NT, no distention Skin: No rash Neuro: motor grossly intact Psych: appropriate affect DS: Data Data Completed and Pending Completed studies during hospitalization [Text1]: Procedures Detoxification Services for Substance Abuse Treatment (03/05/21) Labs on day of discharge: Laboratory Results - last 24 hr 09/09/21 09/09/21 09/09/21 11:56 16:04 17:58 POC Glucose 273 H 314 H 248 H 09/09/21 09/10/21 20:06 07:33 POC Glucose 182 H 203 H Preliminary micro results at discharge 09/09/21 05:20 Blood Culture - Preliminary Blood - Venous No growth after 24 hours. 09/09/21 05:20 Blood Culture - Preliminary Blood - Venous No growth after 24 hours. Discharge Plan Discharge Anticipated Discharge Date/Time: 09/10/21 10:17 Patient Disposition: Home, Self-Care Discharge Diagnosis: Esophageal obstruction, aspiration PNA Referrals: Physician,Unknown J [Primary Care Provider] - 1 Week Discharge Medications: Continued sucralfate [Carafate] 100 mg/mL suspension 10 ml PO BID Qty: 420 RF: 0 (DME) blood-glucose meter [FileLifeuch Ultra2 Meter] Kit See Rx Instructions .ROUTE .MEDSUPPLY Qty: 1 RF: 0 (DME) OneTouch Ultra Blue Test Strip Strip See Rx Instructions .ROUTE .MEDSUPPLY Qty: 100 RF: 0 (DME) lancing device with lancets [[employer] Delica Plus Lanc Dev] Kit See Rx Instructions .ROUTE .MEDSUPPLY Qty: 1 RF: 0 (DME) lancets [newMentorTouch Delica Lancets] 33 gauge misc See Rx Instructions .ROUTE .MEDSUPPLY Qty: 100 RF: 0 trazodone 50 mg tablet 1 tab PO BEDTIME RF: 0 Levemir FlexTouch U-100 Insuln 100 unit/mL (3 mL) insulin pen 20 unit subcut QPM RF: 0 insulin aspart U-100 [Novolog Flexpen U-100 Insulin] 100 unit/mL (3 mL) insulin pen 8 unit subcut TID RF: 0 famotidine 40 mg/5 mL (8 mg/mL) suspension 5 ml PO BEDTIME RF: 0 Vivitrol 380 mg suspension,extended rel recon 4 ml IM Q4W RF: 0 Stand Alone Forms: Patient Portal Discharge page Care Plan Goals: prevent rehospitaliaztion and further esopageal obstruction Health Concerns: esophageal obstruction, aspiration pneumonia Plan of Treatment: Take all your medication as recommended including, augmentin, f2uftkuvo and carafate---avoid alcohol Assessment: as above
[2021-09-10] MEDS: Amoxicillin/Potassium Clav 875 MG TABLET PO (10:31)
[2021-09-10] MEDS: Sucralfate Oral Suspension 1 GM/10 ML ORAL.SUSP PO (10:31)
[2021-09-10 11:29] VITALS: BP 177/70; PULSE 87; RESP 18; TEMP 36.3; O2SAT 99
[2021-09-10 11:48] LABS: Glucose, Whole Blood 272 mg/dL (60-115)
--- NOTE | 2021-09-10 12:56 | HO.POSTANES ---
Post Anesthesia Evaluation Post Anesthesia Evaluation Vital Signs: Vital Signs Temp Pulse Resp BP Pulse Ox 09/10/21 11:29 97.3 F 87 18 177/70 H 99 09/10/21 07:34 97.0 F 81 18 160/79 H 98 09/10/21 03:57 98.9 F 92 18 137/60 98 Anesthesia: General Endotracheal-GETA Mental Status: Awake Pain Control: Satisfactory Nausea/Vomiting: None Hydration: Adequate Anesthesia-Related Issues: No Anes. Related Issues
--- NOTE | 2021-09-10 14:00 | MHC.CLN ---
NUTRITION CONSULT NUTRITION CONSULT DUE TO DIFFICULTY SWALLOWING. HX GASTRITIS/ESOPHAGITIS WITH ESOPHAGEAL STENT. STENT OBSTRUCTED AND REMOVED 09/09. REPORTED THAT TOLERATING FULL LIQUID DIET, BUT AT TIME OF VISIT HAD MANY FOOD ITEMS ON TRAY TABLE. WOULD LIKE ENSURE VANILLA FLAVOR AND ADDED TID (1050 KCALS, 48 G PROTEIN). WEIGHT HISTORY REVIEWED AND VARIES WITH LOSS AND GAIN. REPORTS THAT WHEN HIS STOMACH IS STRETCHED HE CAN EAT PROPERLY. DOES NOT EAT WELL AT TIMES BASED ON MEDICAL CONDITION. FOLLOW FOR DIET ADVANCEMENT AND TOLERANCE.
--- NOTE | 2021-09-10 14:03 | MHC.CM.PN ---
Male 56 DX OBSTRUCTED ESOPHAGEAL STENT He lives w family. He is independent all functional mobility. DP home no services C transport
== END 2021-09-10 17:02 | disposition home or self-care (01) | DRG 862 ==
LOC: HO.ED 11:00 → HO.EDOVER 11:02 → HO.S3 18:31
PROVIDERS: Internal Medicine Gastroenterology; Admitting Provider Nurse Practitioner Acute Care; Emergency Provider Student in an Organized Health Care Education/Training Program; Visit Provider Internal Medicine
PROC: 0DJ08ZZ Inspection of Upper Intestinal Tract, Via Natural or Artificial Opening Endoscopic (ICD-10-PCS; CPT 43235; principal; 2021-09-09 12:00)
DX: T85.898A Other specified complication of other internal prosthetic devices, implants and grafts, initial encounter (principal); J69.0 Pneumonitis due to inhalation of food and vomit; R11.2 Nausea with vomiting, unspecified; E11.9 Type 2 diabetes mellitus without complications; I10 Essential (primary) hypertension; Z20.822 Contact with and (suspected) exposure to COVID-19; F10.11 Alcohol abuse, in remission; Z79.4 Long term (current) use of insulin; Z79.899 Other long term (current) drug therapy
CPT/HCPCS: 43247; 36415; 71045; 71250; 74176; 80053; 82947; 83605; 83690; 85025; 85610; 86850; 86900; 86901; 87040; 87635; 99218; 99285; J2250; J2405; J2543; J2550

== ENCOUNTER 2021-10-23 11:53 | Outpatient (REF) | payer MEDICAID, SELFPAY | END 2021-10-23 11:54 | disposition home or self-care (01) | LOC: HO.RADIR 11:53 | PROVIDERS: PCP Registered Nurse; Visit Provider Internal Medicine Gastroenterology | DX: Z13.89 Encounter for screening for other disorder (principal) ==

== ENCOUNTER 2021-10-23 14:24 | Day surgery (SDC) | payer MEDICAID, SELFPAY ==
[2021-10-22 11:34] VITALS: BMI 19.8
--- NOTE | 2021-10-23 14:25 | HO.ANESPROP2 ---
HPI - Anesthesia Eval Consult details Narrative: 56 M for EGD PMF Active Problems Active Problems: All Active Problems (Updated 09/16/21 @ 00:03 by Keren Alarcon) Leukocytosis (Acute) Gastritis and duodenitis (Acute) Hematemesis/vomiting blood (Acute) DKA (diabetic ketoacidoses) (Acute) Acute GI bleeding (Acute) RONN (acute kidney injury) (Acute) Bacteremia (Acute) RONN (acute kidney injury) (Acute) Hypokalemia (Acute) Alcohol abuse with withdrawal (Acute) Fever (Acute) Lactic acidosis (Acute) Dysphagia (Acute) Aspiration pneumonia (Acute) Fever of unknown origin (Acute) Vitamin D deficiency (Acute) HLD (hyperlipidemia) (Acute) Esophageal stricture (Acute) Hypophosphatemia (Acute) Supraventricular tachycardia (Acute) Hypomagnesemia (Acute) Past Medical History Medical History Acute alcoholic gastritis Alcohol use disorder, severe, dependence Alcoholism Depressed Diabetes Difficult airway for intubation Esophageal stricture Fever of unknown origin Gastritis GIB (gastrointestinal bleeding) Head injury Hepatitis C HLD (hyperlipidemia) HTN (hypertension) Hypomagnesemia Hypophosphatemia Odynophagia On beta cher at home Pancreatitis Seizures Supraventricular tachycardia Type 2 diabetes mellitus Vitamin D deficiency Family History Family History Father Diabetes Family history of problems with anesthesia: No Surgical History Surgical History (Updated 10/22/21 @ 11:13 by Janay Michael, RN) H/O colonoscopy History of esophagogastroduodenoscopy (EGD) History of Problems with Anesthesia: No Social History Social History Household Members: Significant Other Household Members Other:: girlfriend Cindy Egan Housing: House Are you a primary direct support professional caregiver to a significant other at home: No Do you presently have visiting nurse or other home services: No Alcohol intake: former Patient Tobacco Use Status: Never used Tobacco Second Hand Smoke Exposure: No Have you been hit, kicked, punched, or otherwise hurt by someone within the past year? If so, by whom?: No Are you DNR?: No Advance Directives: Yes Advance Directives Information Provided: Yes Advance Directives on File: Yes Advance Directives Date on File: 12/12/20 Recently lost weight without trying: Yes How much weight loss: 14-23 pounds Eating poorly because of decreased appetite: No Nutrition screen score: 4 Nutrition Risks: Difficulty swallowing service: No Current occupational status: unemployed and disabled Meds Allergies Allergy/AdvReac Type Severity Reaction Status Date / Time No Known Allergies Allergy Verified 10/22/21 11:32 Home Medications Medication Instructions Recorded Confirmed Last Taken Type insulin aspart U-100 100 unit/mL 8 unit SUBCUT TID 03/19/21 10/22/21 09/07/21 History (3 mL) subcutaneous pen (Novolog Flexpen U-100 Insulin aspart) insulin detemir U-100 100 unit/mL 20 unit SUBCUT QPM 03/19/21 10/22/21 09/07/21 History (3 mL) subcutaneous pen (Levemir FlexTouch U-100 Insulin) trazodone 50 mg tablet 1 tab PO BEDTIME 03/19/21 10/22/21 09/08/21 History famotidine 40 mg/5 mL (8 mg/mL) 5 ml PO BEDTIME 09/09/21 10/22/21 Unknown History oral suspension naltrexone microspheres 380 mg 4 ml IM Q4W 09/09/21 10/22/21 08/20/21 History intramuscular suspension,extended release (Vivitrol) lisinopril 20 mg tablet 1 tab PO QAM 10/22/21 10/22/21 Unknown History metoprolol tartrate 25 mg tablet 1 tab PO BID 10/22/21 10/22/21 Unknown History thiamine HCl (vitamin B1) 100 mg 1 tab PO QAM 10/22/21 10/22/21 Unknown History tablet Exam Exam Date and Time: October 23, 2021 1425 Height,Weight and Vital Signs: Height 5 ft 8 in Weight 58.967 kg Airway Mallampati Class: II TM Dist: >3cm Neck ROM: Full Loose/Missing/Broken Teeth: Yes (Chipped and loose teeth ) Assessment and Plan Assessment Anesthesia Assessment: Anesthesia Plan Discussed Final Anesthetic Review Family History of Problems with Anesthesia: No History of Problems with Anesthesia: No NPO: Yes ASA Class: II and III Patient Risk: Intermediate Procedure Risk: Intermediate Anesthetic Plan Anesthetic Plan: MAC: Disposition: Standard PACU
[2021-10-23 14:27] VITALS: BP 147/76; PULSE 87; RESP 16; TEMP 36.9; O2SAT 100
--- NOTE | 2021-10-23 14:27 | MHC.SHP ---
Pre-Procedural Eval Section A Date of Service: 10/23/21 Section B Chief Complaint: Esophageal obstruction,Dysphagia Relevant Family History (Specify if Yes): No Relevant Social History: Alcohol Use Present Medications: see Short Stay Collaborative assessment Medical History: Significant History (Acute alcoholic gastritis Alcohol use disorder, severe, dependence Alcoholism Depressed Diabetes Esophageal stricture Fever of unknown origin Gastritis GIB (gastrointestinal bleeding) Head injury Hepatitis C HLD (hyperlipidemia) HTN (hypertension) Hypomagnesemia Hypophosphatemia Odynophagia On beta ) History of Previous Operations: Relevant previous surgery/procedure and date(s) (H/O colonoscopy History of esophagogastroduodenoscopy (EGD)) Allergies: Allergies Allergy/AdvReac Type Severity Reaction Status Date / Time No Known Allergies Allergy Verified 10/22/21 11:32 Review of Systems Sugical H&P ROS: Negative: Constitution, Cardiovascular, Respiratory, Neurological, Psychiatric, Hem-Onc, Allergic/Immunologic, Gastrointestinal, Genitourinary, Musculoskeletal, Integumentary, Endocrine and Eyes/Ears/Nose/Throat Exam Surgical H&P Exam: Normal: HEENT, Normal: Heart, Normal: Lungs, Normal: Extremities, Normal: Abdomen, Normal: Skin and Normal: Neurological Plan Diagnosis/Plan: Unchanged I have reviewed the history and physical and performed a pertinent physical examination on my patient. No changes have occurred unless specified. EGD for dysphagia and balloon dilation
[2021-10-23 14:34] LABS: Glucose, Whole Blood 192 mg/dL (60-115)
--- NOTE | 2021-10-23 14:41 | P.BOP_ITS ---
Brief Operative Note Date of Service: 10/23/21 Pre-op diagnosis: dysphagia Post-op diagnosis: same Procedure: see op note Surgeon: Otoniel Muniz MD Anesthesia: MAC Was an [employer] Tube Bender used for this Procedure?: No Estimated blood loss (mL): 0 Condition: stable Disposition: PACU
--- NOTE | 2021-10-23 14:41 | W.PM.OPN ---
Operative Note Operative Note Date of Service: 10/23/21 Narrative: Procedure Description: EGD FLEXIBLE TRANSORAL UPPER GASTROINTESTINAL ENDOSCOPY UPPER ENDOSCOPY Consent: Indications for the procedure and potential complications of bleeding, perforation, reaction to medications and missed diagnosis were discussed with the patient and informed consent was obtained. Instrument: Olympus GIF H 190 J mid size upper endoscope Monitoring: Vital signs and clinical assessment, continuous EKG monitoring, Pulse oximetry, Carbon Dioxide monitoring and blood pressure monitoring were done throughout the procedure. Procedure: The patient was placed in the left lateral decubitis position and pre-procedure medications were administered and a bite block was placed. The endoscope was inserted into the mouth and advanced under direct vision to the third part of duodenum. A careful inspection was made as the upper endoscope was withdrawn including a retroflexed examination of the proximal stomach; Findings and interventions are described below. FINDINGS: ?Esophageal tissue at distal esophagus much improved as before with no slough or ulceration as seen on prior occasions. Still narrow at GEJ, couldn;t pass regular EGD scope, balloon dilation done to 10-11, mm in sequential fashion and then scope able to pass easily. A few superficial tears were seen. A moderately large sliding hiatal hernia noted about 4 cm, no mass at GEJ on retroflexion. Stomach and duodenum appeared normal Impression/Findings: esophageal stricture hiatal hernia PLAN: cont with PPi as doing soft mechanical diet and chew food thoroughly repeat EGD 4-6 weeks, might use kenalog injection with dilation next time
[2021-10-23 14:59] VITALS: BP 107/59; PULSE 86; RESP 15; TEMP 36.5; O2SAT 100
[2021-10-23 15:14] VITALS: BP 127/70; PULSE 82; RESP 16; TEMP 36.5; O2SAT 100
== END 2021-10-23 16:32 | disposition home or self-care (01) ==
PROVIDERS: PCP Registered Nurse; Visit Provider Internal Medicine Gastroenterology
PROC: (CPT 43249; principal; 2021-10-23 14:20)
DX: K22.2 Esophageal obstruction (principal); K44.9 Diaphragmatic hernia without obstruction or gangrene; I10 Essential (primary) hypertension; E11.9 Type 2 diabetes mellitus without complications; Z79.899 Other long term (current) drug therapy; Z79.4 Long term (current) use of insulin; F10.21 Alcohol dependence, in remission
CPT/HCPCS: 43249; 82947; C1726

== ENCOUNTER → 2021-11-21 08:45 | Outpatient (BNVA) | payer MEDICAID, SELFPAY | PROVIDERS: PCP Registered Nurse; Visit Provider Internal Medicine Gastroenterology ==

== ENCOUNTER 2021-11-26 08:25 | Day surgery (SDC) | payer MEDICAID, SELFPAY ==
--- NOTE | 2021-11-25 12:24 | HO.ANESPROP2 ---
Documented by User: Annita Neal NP 11/25/21 12:27 HPI - Anesthesia Eval Consult details Narrative: 56yo M for Upper Endoscopy Last EGD with Dil 10/2021 with TIVA Needs PICC for IV access ETOH abuse PMFSH Active Problems Active Problems: All Active Problems (Updated 11/21/21 @ 09:28 by Otoniel Muniz MD) Esophageal stricture (Acute) Chronic pancreatitis (Acute) Leukocytosis (Acute) Gastritis and duodenitis (Acute) Hematemesis/vomiting blood (Acute) DKA (diabetic ketoacidoses) (Acute) Acute GI bleeding (Acute) RONN (acute kidney injury) (Acute) Bacteremia (Acute) RONN (acute kidney injury) (Acute) Hypokalemia (Acute) Alcohol abuse with withdrawal (Acute) Fever (Acute) Lactic acidosis (Acute) Dysphagia (Acute) Aspiration pneumonia (Acute) Fever of unknown origin (Acute) Vitamin D deficiency (Acute) HLD (hyperlipidemia) (Acute) Esophageal stricture (Acute) Hypophosphatemia (Acute) Supraventricular tachycardia (Acute) Hypomagnesemia (Acute) Past Medical History Medical History Acute alcoholic gastritis Alcohol use disorder, severe, dependence Alcoholism Depressed Diabetes Difficult airway for intubation Esophageal stricture Fever of unknown origin Gastritis GIB (gastrointestinal bleeding) Head injury Hepatitis C HLD (hyperlipidemia) HTN (hypertension) Hypomagnesemia Hypophosphatemia Odynophagia On beta cher at home Pancreatitis Seizures Supraventricular tachycardia Type 2 diabetes mellitus Vitamin D deficiency Family History Family History Father Diabetes Family history of problems with anesthesia: No Surgical History Surgical History H/O colonoscopy History of esophagogastroduodenoscopy (EGD) History of Problems with Anesthesia: No Social History Social History Household Members: Significant Other Household Members Other:: girlfriend Cindy Egan Housing: House Are you a primary care companion to a significant other at home: No Do you presently have visiting nurse or other home services: No Alcohol intake: former Patient Tobacco Use Status: Never used Tobacco Second Hand Smoke Exposure: No Use of substances other than those prescribed or required for medical reasons: No Are you DNR?: No Advance Directives: No Advance Directives Information Provided: Yes Advance Directives Date on File: 12/12/20 service: No Current occupational status: unemployed and disabled Meds Allergies Allergy/AdvReac Type Severity Reaction Status Date / Time No Known Allergies Allergy Verified 11/21/21 08:47 Home Medications Medication Instructions Recorded Confirmed Last Taken Type insulin aspart U-100 100 unit/mL 8 unit SUBCUT TID 03/19/21 10/22/21 09/07/21 History (3 mL) subcutaneous pen (Novolog Flexpen U-100 Insulin aspart) insulin detemir U-100 100 unit/mL 20 unit SUBCUT QPM 03/19/21 10/22/21 09/07/21 History (3 mL) subcutaneous pen (Levemir FlexTouch U-100 Insulin) trazodone 50 mg tablet 1 tab PO BEDTIME 03/19/21 10/22/21 09/08/21 History famotidine 40 mg/5 mL (8 mg/mL) 5 ml PO BEDTIME 09/09/21 10/22/21 Unknown History oral suspension naltrexone microspheres 380 mg 4 ml IM Q4W 09/09/21 10/22/21 08/20/21 History intramuscular suspension,extended release (Vivitrol) lisinopril 20 mg tablet 1 tab PO QAM 10/22/21 10/22/21 Unknown History metoprolol tartrate 25 mg tablet 1 tab PO BID 10/22/21 10/22/21 Unknown History thiamine HCl (vitamin B1) 100 mg 1 tab PO QAM 10/22/21 10/22/21 Unknown History tablet Exam Exam Date and Time: November 25, 2021 1224 Pertinent Lab Results Pertinent Lab Results: Laboratory Tests 09/09/21 09/09/21 05:07 05:07 WBC 16.1 H Hgb 13.6 L Hct 42.1 Plt Count 328 Sodium 135 Potassium 4.6 Chloride 91 L Carbon Dioxide 25 BUN 31 H Creatinine 1.42 H Narrative Narrative: EKG 03/2021 Vent. Rate : 104 BPM ? ? Atrial Rate : 104 BPM ?? P-R Int : 128 ms? QRS Dur : 082 ms ? ? QT Int : 332 ms ? ? ? P-R-T Axes : 068 078 053 degrees ?? QTc Int : 436 ms ? Sinus tachycardia Otherwise normal ECG When compared with ECG of 05-MAR-2021 10:08, No significant change was found Assessment and Plan Assessment Anesthesia Assessment: Chart Reviewed Final Anesthetic Review Family History of Problems with Anesthesia: No History of Problems with Anesthesia: No Documented by User: Nathalia Khoury MD 11/26/21 11:07 [facility] Past Medical History Medical History Acute alcoholic gastritis Alcohol use disorder, severe, dependence Alcoholism Depressed Diabetes Difficult airway for intubation Esophageal stricture Fever of unknown origin Gastritis GIB (gastrointestinal bleeding) Head injury Hepatitis C HLD (hyperlipidemia) HTN (hypertension) Hypomagnesemia Hypophosphatemia Odynophagia On beta cher at home Pancreatitis Seizures Supraventricular tachycardia Type 2 diabetes mellitus Vitamin D deficiency Family History Family History Father Diabetes Surgical History Surgical History H/O colonoscopy History of esophagogastroduodenoscopy (EGD) Social History Social History Household Members: Significant Other Household Members Other:: girlfriend Cindy Egan Housing: House Are you a primary care companion to a significant other at home: No Do you presently have visiting nurse or other home services: No Alcohol intake: former Patient Tobacco Use Status: Never used Tobacco Second Hand Smoke Exposure: No Use of substances other than those prescribed or required for medical reasons: No Are you DNR?: No Advance Directives: No Advance Directives Information Provided: Yes Advance Directives Date on File: 12/12/20 service: No Current occupational status: unemployed and disabled Meds Allergies Allergy/AdvReac Type Severity Reaction Status Date / Time No Known Allergies Allergy Verified 11/21/21 08:47 Home Medications Medication Instructions Recorded Confirmed Last Taken Type insulin aspart U-100 100 unit/mL 8 unit SUBCUT TID 03/19/21 10/22/21 09/07/21 History (3 mL) subcutaneous pen (Novolog Flexpen U-100 Insulin aspart) insulin detemir U-100 100 unit/mL 20 unit SUBCUT QPM 03/19/21 10/22/21 09/07/21 History (3 mL) subcutaneous pen (Levemir FlexTouch U-100 Insulin) trazodone 50 mg tablet 1 tab PO BEDTIME 03/19/21 10/22/21 09/08/21 History famotidine 40 mg/5 mL (8 mg/mL) 5 ml PO BEDTIME 09/09/21 10/22/21 Unknown History oral suspension naltrexone microspheres 380 mg 4 ml IM Q4W 09/09/21 10/22/21 08/20/21 History intramuscular suspension,extended release (Vivitrol) lisinopril 20 mg tablet 1 tab PO QAM 10/22/21 10/22/21 Unknown History metoprolol tartrate 25 mg tablet 1 tab PO BID 10/22/21 10/22/21 Unknown History thiamine HCl (vitamin B1) 100 mg 1 tab PO QAM 10/22/21 10/22/21 Unknown History tablet Exam Airway Mallampati Class: III TM Dist: >3cm Neck ROM: Full Loose/Missing/Broken Teeth: No Heart: RRR Lungs: CTA Assessment and Plan Assessment Anesthesia Assessment: Anesthesia Plan Discussed Final Anesthetic Review NPO: Yes ASA Class: III Final Preanesthetic Review: Meds/Allgs Chart Reviewed, Consent Obtained/Reviewed and Anes Risks/Benef Reviewed Patient Risk: Intermediate Procedure Risk: Intermediate Anesthetic Plan Anesthetic Plan: MAC: Disposition: Standard PACU
[2021-11-26 08:58] VITALS: BP 140/77; PULSE 84; RESP 18; TEMP 36.7; O2SAT 98; BMI 20.5
[2021-11-26 08:59] LABS: Glucose, Whole Blood 180 mg/dL (60-115)
--- NOTE | 2021-11-26 10:58 | P.HPSUR_ITS ---
Pre-Procedural Eval Section A Date of Service: 11/26/21 Section B Chief Complaint: esophageal obstruction Relevant Family History (Specify if Yes): No Relevant Social History: None (ex alcohol abuse ) Present Medications: see Short Stay Collaborative assessment Medical History: Significant History (Acute alcoholic gastritis Alcohol use disorder, severe, dependence Alcoholism Depressed Diabetes Difficult airway for intubation Esophageal stricture Fever of unknown origin Gastritis GIB (gastrointestinal bleeding) Head injury Hepatitis C HLD (hyperlipidemia) HTN (hypertension) Hypomagnesemia Hypop) History of Previous Operations: Relevant previous surgery/procedure and date(s) (egd,colonoscopy) Allergies: Allergies Allergy/AdvReac Type Severity Reaction Status Date / Time No Known Allergies Allergy Verified 11/21/21 08:47 Review of Systems Sugical H&P ROS: Negative: Constitution, Cardiovascular, Respiratory, Neurological, Psychiatric, Hem-Onc, Allergic/Immunologic, Gastrointestinal, Genitourinary, Musculoskeletal, Integumentary, Endocrine and Eyes/ Ears/Nose/Throat Exam Surgical H&P Exam: Normal: HEENT, Normal: Heart, Normal: Lungs, Normal: Abdomen, Normal: Skin and Normal: Neurological and Significant Findings: Extremities (finger clubbing) Plan Diagnosis/Plan: Unchanged I have reviewed the history and physical and performed a pertinent physical examination on my patient. No changes have occurred unless specified.
--- NOTE | 2021-11-26 10:59 | P.BOP_ITS ---
Brief Operative Note Date of Service: 11/26/21 Pre-op diagnosis: esophageal stricture Post-op diagnosis: same Procedure: see op note Surgeon: Otoniel Muniz MD Anesthesia: MAC Was an Podiatric Assistant used for this Procedure?: No Estimated blood loss (mL): 0 Condition: stable Disposition: PACU
[2021-11-26] MEDS: Lactated Ringers 1,000 ML 50 ML IVCONT (11:01)
--- NOTE | 2021-11-26 11:25 | W.PM.OPN ---
Operative Note Operative Note Date of Service: 11/26/21 Narrative: FLEXIBLE TRANSORAL UPPER GASTROINTESTINAL ENDOSCOPY UPPER ENDOSCOPY Consent: Indications for the procedure and potential complications of bleeding, perforation, reaction to medications and missed diagnosis were discussed with the patient and informed consent was obtained. Instrument: Olympus GIF H 190 J mid size upper endoscope Monitoring: Vital signs and clinical assessment, continuous EKG monitoring, Pulse oximetry, Carbon Dioxide monitoring and blood pressure monitoring were done throughout the procedure. Procedure: The patient was placed in the left lateral decubitis position and pre-procedure medications were administered and a bite block was placed. The endoscope was inserted into the mouth and advanced under direct vision to the third part of duodenum. A careful inspection was made as the upper endoscope was withdrawn including a retroflexed examination of the proximal stomach; Findings and interventions are described below. FINDINGS: ?Esophageal tissue at distal esophagus much improved as before with no slough or ulceration as seen on prior occasions. Still narrow at GEJ, couldn;t pass regular EGD scope, balloon dilation done to 10-11, mm in sequential fashion and then scope able to pass easily. A few superficial tears were seen. 40 mg kenalog was injected after mixing with 5 cc of saline and injected in 1 ml increments around the stricture site. A moderately large sliding hiatal hernia noted about 4 cm, no mass at GEJ on retroflexion. Stomach and duodenum appeared normal Impression/Findings: esophageal stricture hiatal hernia PLAN: cont with PPi as doing soft mechanical diet and chew food thoroughly repeat EGD 4-6 weeks, get midline placed from [facility] or [facility]
[2021-11-26 11:30] VITALS: BP 118/67; PULSE 81; RESP 18; TEMP 37; O2SAT 100
[2021-11-26 11:45] VITALS: BP 133/72; PULSE 75; RESP 18; TEMP 37; O2SAT 100
[2021-11-26 12:04] LABS: Glucose, Whole Blood 178 mg/dL (60-115)
[2021-11-26 12:15] VITALS: BP 140/76; PULSE 76; RESP 18; TEMP 37; O2SAT 98
== END 2021-11-26 13:15 | disposition home or self-care (01) ==
PROVIDERS: PCP Registered Nurse; Visit Provider Internal Medicine Gastroenterology
PROC: 0DJ08ZZ Inspection of Upper Intestinal Tract, Via Natural or Artificial Opening Endoscopic (ICD-10-PCS; CPT 43235; principal; 2021-11-26 10:20)
DX: K22.2 Esophageal obstruction (principal); R13.10 Dysphagia, unspecified; E11.9 Type 2 diabetes mellitus without complications; K29.20 Alcoholic gastritis without bleeding; F10.20 Alcohol dependence, uncomplicated; K86.1 Other chronic pancreatitis; K44.9 Diaphragmatic hernia without obstruction or gangrene; I10 Essential (primary) hypertension; E55.9 Vitamin D deficiency, unspecified; B19.20 Unspecified viral hepatitis C without hepatic coma; Z79.899 Other long term (current) drug therapy; Z79.4 Long term (current) use of insulin
CPT/HCPCS: 43249; 43236; 82947; C1726; J3300

== ENCOUNTER 2021-12-24 08:29 | Outpatient (REF) | payer MEDICAID, SELFPAY | END 2021-12-24 08:30 | disposition home or self-care (01) | LOC: HO.MRI 08:29 | PROVIDERS: Visit Provider Internal Medicine Gastroenterology | DX: Z13.89 Encounter for screening for other disorder (principal) ==

== ENCOUNTER 2022-02-18 11:24 | Inpatient (IN) | payer MEDICAID, SELFPAY ==
[2022-02-18 11:35] VITALS: BP 153/86; PULSE 90; RESP 19; TEMP 37.1; O2SAT 98; BMI 21.4
--- NOTE | 2022-02-18 11:35 | ECG_ITS ---
Test Reason : VOMITING Blood Pressure : / mmHG Vent. Rate : 094 BPM Atrial Rate : 094 BPM P-R Int : 134 ms QRS Dur : 086 ms QT Int : 360 ms P-R-T Axes : 083 088 062 degrees QTc Int : 450 ms Normal sinus rhythm Right atrial enlargement Junctional ST depression, probably normal Borderline ECG When compared with ECG of 17-MAR-2021 01:45, No significant change was found Referred By: Zoe Polanco Electronically Signed By:Maynor Salcedo
--- NOTE | 2022-02-18 11:37 | ED.NAVMDI ---
HPI - Nausea/Vomiting/Diarrhea General Chief complaint: ETOH/Substance Use Stated complaint: EOTH,NAUSE,VOMITING Time Seen by Provider: 02/18/22 11:34 Source: patient and old records reviewed Mode of arrival: EMS Limitations: no limitations History of Present Illness MD elicited complaint: nausea, vomiting, abdominal pain and other (relapse on ETOH yesterday ) Pertinent past history: alcohol abuse, pacreatitis and other (UGIB) Onset (ago): day(s) (started drinking last night vomiting this AM) Description of vomiting: watery and coffee grounds (denies but has brown material on his chews) Associated nausea: Yes Associated abdominal pain: Yes Location of pain: epigastric Pain consistency: constant Severity: moderate Quality: stabbing Exacerbating factors: eating and alcohol intake Relieving factors: none Context: alcohol abuse Associated symptoms: loss of appetite, malaise, nausea/vomiting, weakness and anxiety Related Data Home Medications Medication Instructions Recorded Confirmed insulin aspart U-100 100 unit/mL 7 unit SUBCUT TID 03/19/21 02/18/22 (3 mL) subcutaneous pen (Novolog Flexpen U-100 Insulin aspart) insulin detemir U-100 100 unit/mL 20 unit SUBCUT QPM 03/19/21 02/18/22 (3 mL) subcutaneous pen (Levemir FlexTouch U-100 Insulin) trazodone 50 mg tablet 1 tab PO BEDTIME 03/19/21 02/18/22 thiamine HCl (vitamin B1) 100 mg 1 tab PO QAM 10/22/21 02/18/22 tablet cholecalciferol (vitamin D3) 50 1 cap PO QAM 02/18/22 02/18/22 mcg (2,000 unit) capsule fluoxetine 20 mg/5 mL (4 mg/mL) 5 ml PO DAILY 02/18/22 02/18/22 oral solution folic acid 1 mg tablet 1 tab PO QAM 02/18/22 02/18/22 lisinopril 5 mg tablet 1 tab PO QAM 02/18/22 02/18/22 magnesium oxide 400 mg (241.3 mg 1 tab PO BID 02/18/22 02/18/22 magnesium) tablet multivitamin 1 tab PO QAM 02/18/22 02/18/22 Previous Rx's Medication Instructions Recorded blood sugar diagnostic (Voltaic Coatingsuch #100 ea 11/16/20 Ultra Blue Test Strip) blood-glucose meter (OneTouch #1 ea 11/16/20 Ultra2 Meter) lancets 33 gauge (OneTouch Delica #100 ea 11/16/20 Lancets) lancing device with lancets kit #1 ea 11/16/20 (OneTouch Delica Plus Lanc Dev) Allergies Allergy/AdvReac Type Severity Reaction Status Date / Time No Known Allergies Allergy Verified 11/21/21 08:47 Review of Systems Review of Systems: Constitutional : No Weight loss, No Fever, No Chills ENT/Mouth : No sore throat, No Rhinorrhea Eyes: No Swelling, No Redness Cardiovascular : No Chest Pain, No SOB, NoEdema Respiratory : No Cough, No Sputum, No Wheezing Gastrointestinal : Positive Nausea, Positive Vomiting, no Diarrhea, positive abdominal Pain, No Hematochezia, No Melena Genitourinary : No Dysuria, No Urinary Frequency, No Hematuria, No Urgency Musculoskeletal : No joint pain, No Myalgias, No Joint Swelling Skin : No Skin Lesions, No rash Neuro : pos Weakness, No Numbness, No Dizziness, No Headache Psych : pos Anxiety/Panic, No Depression Heme/Lymph: No Bruising, No Lymphadenopathy Endocrine : No Polyuria, No Polydipsia All other systems reviewed and are negative. Gastrointestinal: Gastrointestinal: Reports nausea PMFSH Past Medical History Attestation statement: The following information was validated with the patient. Medical History Acute alcoholic gastritis Alcohol use disorder, severe, dependence Alcoholism Depressed Diabetes Difficult airway for intubation Esophageal stricture Fever of unknown origin Gastritis GIB (gastrointestinal bleeding) Head injury Hepatitis C HLD (hyperlipidemia) HTN (hypertension) Hypomagnesemia Hypophosphatemia Odynophagia On beta cher at home Pancreatitis Seizures Supraventricular tachycardia Type 2 diabetes mellitus Vitamin D deficiency Surgical History H/O colonoscopy History of esophagogastroduodenoscopy (EGD) Family History Family History Father Diabetes Social History Social History Household Members: Significant Other Household Members Other:: girlfriend Cindy Egan Housing: House Are you a primary urgent care physician assistant to a significant other at home: No Do you presently have visiting nurse or other home services: No Alcohol intake: former Patient Tobacco Use Status: Never used Tobacco Second Hand Smoke Exposure: No Advance Directives: Yes Advance Directives on File: Yes Advance Directives Date on File: 12/12/20 service: No Current occupational status: unemployed and disabled Physical Exam Vital Signs: Vital Signs: Last Vital Signs Temp 98.0 F 02/18/22 14:08 Pulse 113 H 02/18/22 14:08 Resp 12 02/18/22 14:08 BP 138/83 02/18/22 14:08 Pulse Ox 95 02/18/22 14:08 BMI result Body Mass Index 21.4 Appearance: Alert. Oriented X3. Mild acute distress. ETOH odor Eyes: Pupils equal, round and reactive to light. ENT: Pharynx moderate dry MM Neck: Normal inspection. Neck supple. CVS: tachycardic heart rate and rhythm. Pulses normal. Respiratory: No respiratory distress. Breath sounds normal. Abdomen: Soft and moderate epigastric ttp no rebound Skin: Skin warm and dry. pale skin color. Normal skin turgor. Extremities: No lower extremity edema. No calf ttp dried brown material - emesis on sneakers Neuro: Oriented X 3. No motor deficit. No sensory deficit. Course Course Course Narrative: hx of leukocytosis in the past with vomiting and ETOH abuse - at this time likely reactive due to vomiting - doubt infection or severe sepsis chronic bouts of elevated lactic acidosis - due to dehydration, vomiting, alcohol use and not infection or severe sepsis RONN, elevated BUN already given protonix suspect UGIB - does not want rectal exam will repeat lactic acid level and then admit for further workup and monitoring of coffee ground emesis/vomiting will start on oral phenobarb was planned for EGD tomorrow but Muniz unsure due to ETOH signed out to Dr. Shepard pending lactic acidosis but suspect he will need admission MDM - Nausea/Vomiting/Diarrhea MDM Narrative Medical decision making narrative: 57yo male with hx of ETOH abuse, DM, RONN, GIB, pancreatitis reports that he has been drinking since last night after almost 11 months of sobriety - he notes vomiting this AM. He denies noticing red or brown material but shoes are covered in brown material - has hx of UGIB. At this time will need labs, EKG, IVFx 2L, IV protonix, IM ativan prior to IV line at his request, anti-emetics and IV protonix - dispo per results and findings. Lab Data Result diagrams: 02/18/22 12:52 02/18/22 12:52 Labs: Lab Results 02/18/22 02/18/22 02/18/22 Range/Units 12:52 12:52 12:52 WBC 24.3 H (4.8-10.8) X10*3/uL RBC 5.97 H (4.60-5.80) X10*6/uL Hgb 15.0 (14.0-18.0) g/dl Hct 47.0 (42.0-52.0) % MCV 78.7 L (80.0-98.0) fL MCH 25.1 L (27.0-33.0) pg MCHC 31.9 (31.0-36.0) g/dl RDW 14.6 (11.0-16.0) % Plt Count 392 (160-400) X10*3/uL MPV 9.4 (9.4-12.4) fL Immature Gran % (Auto) 0.7 H (0.0-0.4) % Neut % (Auto) 85.9 H (45-73) % Lymph % (Auto) 6.0 L (20-40) % [place] % (Auto) 7.2 (2-11) % Eos % (Auto) 0.0 (0-4) % Baso % (Auto) 0.2 (0-2) % Lymph # (Auto) 1.5 (1.2-4.9) X10*3/uL [place] # (Auto) 1.8 H (0.1-1.2) X10*3/uL Eos # (Auto) 0.0 (0.0-0.4) X10*3/uL Baso # (Auto) 0.0 (0.0-0.2) X10*3/uL Abs Immat Gran (auto) 0.18 H (0.00-0.03) X10*3/uL Absolute Neuts (auto) 20.9 H (2.0-8.3) x10*3/uL Absolute Nucleated RBC 0.000 (0.0-0.012) X10*3/uL Nucleated RBC % (auto) 0.0 (0.0-0.2) /100WBC Smear Tech's Comments VERIFIED PT 12.1 (9.9-13.0) SEC INR 1.1 (0.9-1.1) VBG pH (7.32-7.43) VBG pCO2 mmHg VBG pO2 mmHg VBG HCO3 (22-26) mmol/L VBG O2 Saturation % VBG Base Excess mmol/L Sodium 141 (135-145) mmol/L Potassium 4.3 (3.3-5.1) mmol/L Chloride 87 L (96-108) mmol/L Carbon Dioxide 26 (22-29) mmol/L Anion Gap 32 H (12-20) BUN 54 H (9-16) mg/dL Creatinine 1.81 H (0.5-1.4) mg/dL Estim Creat Clear Calc 39.4 Estimated GFR 39 Random Glucose 288 H (60-115) mg/dL Lactic Acid (0.5-2.0) mmol/L Calcium 10.4 H (8.4-10.2) mg/dL Magnesium 2.0 (1.6-2.6) mg/dL Total Bilirubin 0.5 (0.0-1.0) mg/dL Direct Bilirubin 0.3 (0.0-0.5) mg/dL AST 29 D (5-37) U/L ALT 28 (0-40) U/L Alkaline Phosphatase 116 (39-117) U/L Total Protein 9.4 H (6.5-8.0) g/dL Albumin 4.3 (3.5-5.0) g/dL Lipase 8 (8-78) U/L Ethyl Alcohol mg/dL Acetone, Qual Negative (Negative) COVID-19 ([facility]) (Negative) COVID-19 Clin Com 02/18/22 02/18/22 02/18/22 Range/Units 12:52 12:52 12:52 WBC (4.8-10.8) X10*3/uL RBC (4.60-5.80) X10*6/uL Hgb (14.0-18.0) g/dl Hct (42.0-52.0) % MCV (80.0-98.0) fL MCH (27.0-33.0) pg MCHC (31.0-36.0) g/dl RDW (11.0-16.0) % Plt Count (160-400) X10*3/uL MPV (9.4-12.4) fL Immature Gran % (Auto) (0.0-0.4) % Neut % (Auto) (45-73) % Lymph % (Auto) (20-40) % [place] % (Auto) (2-11) % Eos % (Auto) (0-4) % Baso % (Auto) (0-2) % Lymph # (Auto) (1.2-4.9) X10*3/uL [place] # (Auto) (0.1-1.2) X10*3/uL Eos # (Auto) (0.0-0.4) X10*3/uL Baso # (Auto) (0.0-0.2) X10*3/uL Abs Immat Gran (auto) (0.00-0.03) X10*3/uL Absolute Neuts (auto) (2.0-8.3) x10*3/uL Absolute Nucleated RBC (0.0-0.012) X10*3/uL Nucleated RBC % (auto) (0.0-0.2) /100WBC Smear Tech's Comments PT (9.9-13.0) SEC INR (0.9-1.1) VBG pH (7.32-7.43) VBG pCO2 mmHg VBG pO2 mmHg VBG HCO3 (22-26) mmol/L VBG O2 Saturation % VBG Base Excess mmol/L Sodium (135-145) mmol/L Potassium (3.3-5.1) mmol/L Chloride (96-108) mmol/L Carbon Dioxide (22-29) mmol/L Anion Gap (12-20) BUN (9-16) mg/dL Creatinine (0.5-1.4) mg/dL Estim Creat Clear Calc Estimated GFR Random Glucose (60-115) mg/dL Lactic Acid 9.8 H* (0.5-2.0) mmol/L Calcium (8.4-10.2) mg/dL Magnesium (1.6-2.6) mg/dL Total Bilirubin (0.0-1.0) mg/dL Direct Bilirubin (0.0-0.5) mg/dL AST (5-37) U/L ALT (0-40) U/L Alkaline Phosphatase (39-117) U/L Total Protein (6.5-8.0) g/dL Albumin (3.5-5.0) g/dL Lipase (8-78) U/L Ethyl Alcohol 165 mg/dL Acetone, Qual (Negative) COVID-19 ([facility]) Negative (Negative) COVID-19 Clin Com See Note 02/18/22 Range/Units 13:00 WBC (4.8-10.8) X10*3/uL RBC (4.60-5.80) X10*6/uL Hgb (14.0-18.0) g/dl Hct (42.0-52.0) % MCV (80.0-98.0) fL MCH (27.0-33.0) pg MCHC (31.0-36.0) g/dl RDW (11.0-16.0) % Plt Count (160-400) X10*3/uL MPV (9.4-12.4) fL Immature Gran % (Auto) (0.0-0.4) % Neut % (Auto) (45-73) % Lymph % (Auto) (20-40) % [place] % (Auto) (2-11) % Eos % (Auto) (0-4) % Baso % (Auto) (0-2) % Lymph # (Auto) (1.2-4.9) X10*3/uL [place] # (Auto) (0.1-1.2) X10*3/uL Eos # (Auto) (0.0-0.4) X10*3/uL Baso # (Auto) (0.0-0.2) X10*3/uL Abs Immat Gran (auto) (0.00-0.03) X10*3/uL Absolute Neuts (auto) (2.0-8.3) x10*3/uL Absolute Nucleated RBC (0.0-0.012) X10*3/uL Nucleated RBC % (auto) (0.0-0.2) /100WBC Smear Tech's Comments PT (9.9-13.0) SEC INR (0.9-1.1) VBG pH 7.34 (7.32-7.43) VBG pCO2 51 mmHg VBG pO2 46 mmHg VBG HCO3 28 H (22-26) mmol/L VBG O2 Saturation 62.0 % VBG Base Excess 1.6 mmol/L Sodium (135-145) mmol/L Potassium (3.3-5.1) mmol/L Chloride (96-108) mmol/L Carbon Dioxide (22-29) mmol/L Anion Gap (12-20) BUN (9-16) mg/dL Creatinine (0.5-1.4) mg/dL Estim Creat Clear Calc Estimated GFR Random Glucose (60-115) mg/dL Lactic Acid (0.5-2.0) mmol/L Calcium (8.4-10.2) mg/dL Magnesium (1.6-2.6) mg/dL Total Bilirubin (0.0-1.0) mg/dL Direct Bilirubin (0.0-0.5) mg/dL AST (5-37) U/L ALT (0-40) U/L Alkaline Phosphatase (39-117) U/L Total Protein (6.5-8.0) g/dL Albumin (3.5-5.0) g/dL Lipase (8-78) U/L Ethyl Alcohol mg/dL Acetone, Qual (Negative) COVID-19 ([facility]) (Negative) COVID-19 Clin Com ECG Data Attestation: I personally reviewed and interpreted this ECG as follows: ECG interpretation date: 02/18/22 ECG interpretation time: 11:43 Interpretation: Rate: 94 Rhythm: NSR [place]: normal Normal P waves. Normal JAVIER. Normal QRS complex. ST T wave : normal no LEELA qTC: normal prior studies: no acute ischemia The study has been interpreted contemporaneously by me. . Critical Care Time Critical Care Time Critical Care Time: Yes Total Critical Care Time: 60 Attestation: 3L of IVF, IV ativan, phenobarb I attest to this time spent taking care of the patient Discharge Plan Discharge Clinical Impression: Alcohol abuse, RONN (acute kidney injury), Lactic acidosis, Acute upper GI bleed Leukocytosis Qualifiers: Leukocytosis type: unspecified Qualified Code(s): D72.829 - Elevated white blood cell count, unspecified Patient Disposition: Admitted As Inpatient
[2022-02-18] MEDS: LORazepam 2 MG/ML VIAL IM (11:42)
[2022-02-18 13:06] LABS: Basophils Percent Auto 0.2 % (0-2); Imm Gran Abs Auto 0.18 X10*3/uL (0.00-0.03); Imm Gran Pct Auto 0.7 % (0.0-0.4); Lymphocytes Absolute Auto 1.5 X10*3/uL (1.2-4.9); MANUAL DIFF FLAG SCAN; Mean Corpuscular HGB Conc 31.9 g/dl (31.0-36.0); Mean Corpuscular Hemoglobin 25.1 pg (27.0-33.0); Mean Corpuscular Volume 78.7 fL (80.0-98.0); Mean Platelet Volume 9.4 fL (9.4-12.4); Monocytes Absolute Auto 1.8 X10*3/uL (0.1-1.2); Monocytes Percent Auto 7.2 % (2-11); Neutrophils Absolute Auto 20.9 x10*3/uL (2.0-8.3); Neutrophils Percent Auto 85.9 % (45-73); Platelet Count 392 X10*3/uL (160-400); Red Blood Count 5.97 X10*6/uL (4.60-5.80); Red Cell Distribution Width 14.6 % (11.0-16.0); SCAN SMEAR FLAG 1; White Blood Count 24.3 X10*3/uL (4.8-10.8)
[2022-02-18 13:08] LABS: INTERNATIONAL NORM RATIO 1.1 (0.9-1.1); Prothrombin Time 12.1 SEC (9.9-13.0)
[2022-02-18 13:09] LABS: Venous Blood Gas Refer to POC result
[2022-02-18 13:09] LABS: VBG Base Excess 1.6 mmol/L; VBG HCO3 28 mmol/L (22-26); VBG pCO2 51 mmHg; VBG pH 7.34 (7.32-7.43); VBG pO2 46 mmHg
[2022-02-18] MEDS: 0.9 % Sodium Chloride 1,000 ML 999 ML IVCONT ×2 (13:15→15:58)
[2022-02-18] MEDS: Pantoprazole Sodium 40 MG/10 ML VIAL IVPUSH (13:15)
[2022-02-18] MEDS: Thiamine HCL 200 MG in 0.9 % Sodium Chloride 100 ML 204 MG IV (13:18)
[2022-02-18] MEDS: Magnesium Sulfate/H2O 2 GM/50 ML PIGGYBACK IV (13:18)
[2022-02-18 13:21] LABS: COVID-19 Test Negative (Negative); IDNOW Serial# 16C4AD1C
[2022-02-18 13:24] LABS: Alanine Aminotransferase 28 U/L (0-40); Albumin Level 4.3 g/dL (3.5-5.0); Alkaline Phosphatase 116 U/L (39-117); Anion Gap 32 (12-20); Aspartate Amino Transferase 29 U/L (5-37); Bilirubin Direct 0.3 mg/dL (0.0-0.5); Bilirubin Total 0.5 mg/dL (0.0-1.0); Blood Urea Nitrogen 54 mg/dL (9-16); Calcium 10.4 mg/dL (8.4-10.2); Carbon Dioxide 26 mmol/L (22-29); Chloride 87 mmol/L (96-108); Creatinine Clr Calc Pharmacy 39.4; Estimated Glomerular Filt Rate 39; Ethanol 165 mg/dL; Glucose Random 288 mg/dL (60-115); Lipase 8 U/L (8-78); Potassium 4.3 mmol/L (3.3-5.1); Sodium 141 mmol/L (135-145); Total Protein 9.4 g/dL (6.5-8.0)
[2022-02-18 13:25] LABS: Lactic Acid 9.8 mmol/L (0.5-2.0)
[2022-02-18 13:32] LABS: SLIDE REVIEW VERIFIED
[2022-02-18 14:08] VITALS: BP 138/83; PULSE 113; RESP 12; TEMP 36.7; O2SAT 95
[2022-02-18 14:21] LABS: Acetone, serum QL Negative (Negative)
--- NOTE | 2022-02-18 14:52 | PHA.MEDREC ---
Pharmacy Consult ? Medication Reconciliation Pharmacy has completed the medication reconciliation. Completed med rec based on claim history, pt unable communicate what medications he takes
[2022-02-18 15:00] LABS: Reflex Lactate? Lactic Acid Added
[2022-02-18] MEDS: LORazepam 2 MG/ML VIAL 1 MG IVPUSH (15:36)
--- NOTE | 2022-02-18 17:52 | PM.IMHP ---
History of Present Illness Date of Service: 02/18/22 Attending physician on admission: Tristen Tinajero Chief Complaint: nausea vomiting and abdominal pain 57-year-old gentleman with history of alcohol dependence, diabetes mellitus, alcoholic gastritis, hepatitis C, hypertension hyperlipidemia presented to [facility] due to symptoms of nausea vomiting and abdominal pain as per patient he relapsed on alcohol since yesterday and started vomiting watery and coffee ground emesis associated with abdominal pain, noted to have worsening pain with drinking alcohol in eating he also complained of generalized weakness anxiety, in the emergency room patient noted to have elevated creatinine 1.81, magnesium of 2, WBC count 24,000 and in lactic acid level of 9.8 patient aggressively treated in the emergency room with IV fluids, Ativan and started on phenobarb protocol currently patient is somnolent but easily arousable noted to have dry heaves, complaining of epigastric pain, patient is being admitted to [facility] due to alcohol abuse with high risk for withdrawal associated with nausea vomiting and abdominal pain patient was scheduled to have upper endoscopy done by Dr. Reyes tomorrow. 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, no dizziness CVS no chest pain, no shortness of breath GI as per HPI no urinary urgency, no frequency Yes all other systems are reviewed and are negative [facility] Medical History Acute alcoholic gastritis Alcohol use disorder, severe, dependence Alcoholism Depressed Diabetes Difficult airway for intubation Esophageal stricture Fever of unknown origin Gastritis GIB (gastrointestinal bleeding) Head injury Hepatitis C HLD (hyperlipidemia) HTN (hypertension) Hypomagnesemia Hypophosphatemia Odynophagia On beta cher at home Pancreatitis Seizures Supraventricular tachycardia Type 2 diabetes mellitus Vitamin D deficiency Family History Father Diabetes Surgical History H/O colonoscopy History of esophagogastroduodenoscopy (EGD) Social History Household Members: Significant Other Household Members Other:: girlfriend Cindy Egan Housing: House Are you a primary childcare worker to a significant other at home: No Do you presently have visiting nurse or other home services: No Alcohol intake: former Patient Tobacco Use Status: Never used Tobacco Second Hand Smoke Exposure: No Currently Displaying Signs/Symptoms of Drug Intoxication Withdrawal: Yes Advance Directives: Yes Advance Directives on File: Yes Advance Directives Date on File: 12/12/20 service: No Current occupational status: disabled Meds Allergies Allergy/AdvReac Type Severity Reaction Status Date / Time No Known Allergies Allergy Verified 11/21/21 08:47 Active Medications: Current Medications Acetaminophen (Acetaminophen 325 Mg Tablet) 650 mg PO Q6H PRN PRN Reason: Pain, Mild (Pain Scale 1-3) Fluoxetine HCl (Fluoxetine Hcl Oral Solution 20 Mg/5 Ml Solution) 20 mg PO DAILY [facility] Folic Acid (Folic Acid 1 Mg Tablet) 1 mg PO DAILY [facility] Sodium Chloride (Ns) 1,000 mls @ 150 mls/hr IVCONT .Q6H40M [facility] Lisinopril (Lisinopril 5 Mg Tablet) 5 mg PO DAILY [facility]; Protocol Magnesium Oxide (Magnesium Oxide 400 Mg Tablet) 400 mg PO BID [facility] Ondansetron HCl (Ondansetron Hcl 4 Mg/2 Ml Vial) 4 mg IVPUSH Q8H PRN PRN Reason: Nausea Pantoprazole Sodium (Pantoprazole Sodium 40 Mg/10 Ml Vial) 40 mg IVPUSH BID@0630,1630 [facility] Pharmacy Consult (Consult Rx Perform Med Rec) 1 each MISCELLANE ONCE PRN PRN Reason: Consult order Pharmacy Consult (Consult Rx Etoh Phenob Po Dose) 1 each MISCELLANE ONCE PRN; Protocol PRN Reason: Consult order Phenobarbital 200 mg/ (Phenobarbital 30 mg) 230 mg PO 1999,2300 [facility] Stop: 02/18/22 23:01 Phenobarbital (Phenobarbital 15 Mg Tablet) 45 mg PO BID [facility] Stop: 02/20/22 21:01 Phenobarbital (Phenobarbital 30 Mg Tablet) 30 mg PO BID [facility] Stop: 02/22/22 21:01 Phenobarbital (Phenobarbital 15 Mg Tablet) 15 mg PO DAILY [facility] Stop: 02/24/22 09:01 Sodium Chloride (0.9 % Sodium Chloride Flush 3 Ml Syringe) 3 ml IVFLUSH QSHIFT [facility] Thiamine HCl (Thiamine Hcl 100 Mg Tablet) 100 mg PO DAILY [facility] Vitamin D (Cholecalciferol (Vitamin D3) 25 Mcg Tablet) 50 mcg PO DAILY [facility] Home Medications Medication Instructions Recorded Confirmed Last Taken Type insulin aspart U-100 100 unit/mL 7 unit SUBCUT TID 03/19/21 02/18/22 09/07/21 History (3 mL) subcutaneous pen (Novolog Flexpen U-100 Insulin aspart) insulin detemir U-100 100 unit/mL 20 unit SUBCUT QPM 03/19/21 02/18/22 09/07/21 History (3 mL) subcutaneous pen (Levemir FlexTouch U-100 Insulin) trazodone 50 mg tablet 1 tab PO BEDTIME 03/19/21 02/18/22 09/08/21 History thiamine HCl (vitamin B1) 100 mg 1 tab PO QAM 10/22/21 02/18/22 Unknown History tablet cholecalciferol (vitamin D3) 50 1 cap PO QAM 02/18/22 02/18/22 Unknown History mcg (2,000 unit) capsule fluoxetine 20 mg/5 mL (4 mg/mL) 5 ml PO DAILY 02/18/22 02/18/22 Unknown History oral solution folic acid 1 mg tablet 1 tab PO QAM 02/18/22 02/18/22 Unknown History lisinopril 5 mg tablet 1 tab PO QAM 02/18/22 02/18/22 Unknown History magnesium oxide 400 mg (241.3 mg 1 tab PO BID 02/18/22 02/18/22 Unknown History magnesium) tablet multivitamin 1 tab PO QAM 02/18/22 02/18/22 Unknown History Physical Exam Vital Signs and Narrative: Vital Signs: Last Vital Signs Temp 98.0 F 02/18/22 14:08 Pulse 113 H 02/18/22 14:08 Resp 12 02/18/22 14:08 BP 138/83 02/18/22 14:08 Pulse Ox 95 02/18/22 14:08 BMI result Body Mass Index 21.4 Const: Other: General somnolent but easily arousable, no acute distress. anicteric sclera Neck supple no JVD. CVS regular rate rhythm, tachycardia Respiratory lungs clear to auscultation, no respiratory distress, no wheeze, no rhonchi. Gastrointestinal abdomen soft, epigastric tenderness to palpation, bowel sounds audible,no guarding , no rigidity. Extremities no edema. Neuro nonfocal , moving all 4 extremity speech clear. Skin no rash, poor skin turgor musculoskeletal no deformity Results Labs CBC and Chem 7: 02/19/22 09:00 02/19/22 09:00 Labs: Laboratory Results - last 24 hr 02/18/22 02/18/22 02/18/22 12:52 12:52 12:52 MCV 78.7 L MCH 25.1 L MCHC 31.9 RDW 14.6 Plt Count 392 MPV 9.4 Immature Gran % (Auto) 0.7 H Neut % (Auto) 85.9 H Lymph % (Auto) 6.0 L Person % (Auto) 7.2 Eos % (Auto) 0.0 Baso % (Auto) 0.2 Lymph # (Auto) 1.5 Person # (Auto) 1.8 H Eos # (Auto) 0.0 Baso # (Auto) 0.0 Abs Immat Gran (auto) 0.18 H Absolute Neuts (auto) 20.9 H Absolute Nucleated RBC 0.000 Nucleated RBC % (auto) 0.0 Smear Tech's Comments VERIFIED PT 12.1 INR 1.1 VBG pH VBG pCO2 VBG pO2 VBG HCO3 VBG O2 Saturation VBG Base Excess Anion Gap 32 H Estim Creat Clear Calc 39.4 Estimated GFR 39 Random Glucose 288 H Lactic Acid Calcium 10.4 H Magnesium 2.0 Total Bilirubin 0.5 Direct Bilirubin 0.3 AST 29 D ALT 28 Alkaline Phosphatase 116 Total Protein 9.4 H Albumin 4.3 Lipase 8 Ethyl Alcohol Acetone, Qual Negative COVID-19 ([facility]) COVID-19 Clin Com 02/18/22 02/18/22 02/18/22 12:52 12:52 12:52 MCV MCH MCHC RDW Plt Count MPV Immature Gran % (Auto) Neut % (Auto) Lymph % (Auto) Person % (Auto) Eos % (Auto) Baso % (Auto) Lymph # (Auto) Person # (Auto) Eos # (Auto) Baso # (Auto) Abs Immat Gran (auto) Absolute Neuts (auto) Absolute Nucleated RBC Nucleated RBC % (auto) Smear Tech's Comments PT INR VBG pH VBG pCO2 VBG pO2 VBG HCO3 VBG O2 Saturation VBG Base Excess Anion Gap Estim Creat Clear Calc Estimated GFR Random Glucose Lactic Acid 9.8 H* Calcium Magnesium Total Bilirubin Direct Bilirubin AST ALT Alkaline Phosphatase Total Protein Albumin Lipase Ethyl Alcohol 165 Acetone, Qual COVID-19 ([facility]) Negative COVID-19 Clin Com See Note 02/18/22 13:00 MCV MCH MCHC RDW Plt Count MPV Immature Gran % (Auto) Neut % (Auto) Lymph % (Auto) Person % (Auto) Eos % (Auto) Baso % (Auto) Lymph # (Auto) Person # (Auto) Eos # (Auto) Baso # (Auto) Abs Immat Gran (auto) Absolute Neuts (auto) Absolute Nucleated RBC Nucleated RBC % (auto) Smear Tech's Comments PT INR VBG pH 7.34 VBG pCO2 51 VBG pO2 46 VBG HCO3 28 H VBG O2 Saturation 62.0 VBG Base Excess 1.6 Anion Gap Estim Creat Clear Calc Estimated GFR Random Glucose Lactic Acid Calcium Magnesium Total Bilirubin Direct Bilirubin AST ALT Alkaline Phosphatase Total Protein Albumin Lipase Ethyl Alcohol Acetone, Qual COVID-19 ([facility]) COVID-19 Clin Com Assessment and Plan (1) Leukocytosis: Qualifiers: Leukocytosis type: unspecified Qualified Code(s): D72.829 - Elevated white blood cell count, unspecified Status: Acute (2) RONN (acute kidney injury): Status: Acute (3) Alcohol abuse with withdrawal: Status: Acute (4) Lactic acidosis: Status: Acute Plan a 7-year-old gentleman with history of alcohol use presented to [facility] due to symptoms of nausea vomiting epigastric pain and alcohol use patient diagnosed to have acute kidney injury, lactic acidosis likely due to alcohol use and dehydration, leukocytosis, alcohol abuse with high risk for alcohol withdrawal, alcohol level 165 nausea vomiting and epigastric pain likely due to alcohol induced gastritis, patient has history of esophageal stricture and hiatal hernia was scheduled to undergo upper endoscopy tomorrow hematocrit stable will repeat CBC place patient on IV Protonix 40 b.i.d. and transition to by mouth once patient more awake and alert continue supportive care with antiemetics IV fluids alcohol abuse and high risk for withdrawal placed patient on phenobarb protocol/ care team consult, continue folic acid, thiamine acute kidney injury likely pre renal with GI loss will treat aggressively with IV fluids avoid nephrotoxins follow BMP lactic acidosis no evidence of DKA likely due to dehydration/ alcohol use with aggressively treat with IV fluids follow lactic acid level closely leukocytosis likely reactive follow CBC, no complain of cough, no urinary symptoms will obtain urinalysis, follow clinical course diabetes mellitus, will place on diabetic diet, hold pre meal insulin and Levemir, will place patient on insulin sliding scale due to nausea vomiting and decreased by mouth intake hypertension continue lisinopril follow blood pressure closely mood disorder continue fluoxetine DVT prophylaxis with compression boots code status full code patient will need two night inpatient hospitalization due to nausea, vomiting, and epigastric pain due to alcohol-induced gastritis as well as alcohol abuse and withdrawal, need phenobarb protocol. Quality Stroke Does the patient have a stroke diagnosis?: No VTE Prior VTE?: No VTE Risk Level:: Medical - moderate - high VTE Device Contraindication: N/A - Device Ordered VTE Drug Contraindication: Treatment Not Indicated
[2022-02-18 18:21] VITALS: BP 144/78; PULSE 116; RESP 19; TEMP 36.8; O2SAT 96
[2022-02-18 18:35] VITALS: BP 144/70; PULSE 115; RESP 20; O2SAT 96
[2022-02-18 18:44] LABS: ~Lactic Acid-LAB USE ONLY 8.4 mmol/L (0.5-2.0)
--- NOTE | 2022-02-18 18:44 | PM.GICN ---
History of Present Illness Data of Consult Service Date: 02/18/22 Requesting physician: Tristen Tinajero Primary Care Provider: [facility] HPI Reason for consult: nausea, vomiting 57-year-old male with history of alcohol dependence, diabetes mellitus, alcoholic gastritis, hepatitis C, hypertension hyperlipidemia who I am seeing for assessment for coffee ground emesis. Patient had been drinking alcohol for last 1-2 days and then noted to have nausea with few episodes of coffee ground emesis with mild epigastric pain along with weakness and malaise. He had been drinking vodka. He has been hsavng worsening trouble with swallowing and was due repeat esophageal dilation for this. He denies melena, rectal bleeding, no further emesis and improvement of pain since admission. Labs were pos for ethanol in blood 165, raised lactate, and Creatinine. He had been given ativan and alcohol protocol. Review of Systems Review of Systems: Constitutional : No Weight loss, No Fever, No Chills ENT/Mouth : No sore throat, No Rhinorrhea Eyes: No Swelling, No Redness Cardiovascular : No Chest Pain, No SOB, No Edema Respiratory : No Cough, No Sputum, No Wheezing Gastrointestinal : see HPI Genitourinary : NO Dysuria, No Urinary Frequency, No Hematuria, No Urgency Musculoskeletal : No joint pain, No Myalgias, No Joint Swelling Skin : No Skin Lesions, No rash Neuro : + Weakness, No Numbness, No Dizziness, No Headache Psych : No Anxiety/Panic, No Depression Heme/Lymph: No Bruising, No Lymphadenopathy Endocrine : No Polyuria, No Polydipsia All other systems reviewed and are negative. [facility] Past Medical History Medical History Acute alcoholic gastritis Alcohol use disorder, severe, dependence Alcoholism Depressed Diabetes Difficult airway for intubation Esophageal stricture Fever of unknown origin Gastritis GIB (gastrointestinal bleeding) Head injury Hepatitis C HLD (hyperlipidemia) HTN (hypertension) Hypomagnesemia Hypophosphatemia Odynophagia On beta cher at home Pancreatitis Seizures Supraventricular tachycardia Type 2 diabetes mellitus Vitamin D deficiency Family History Family History Father Diabetes Surgical History Surgical History H/O colonoscopy History of esophagogastroduodenoscopy (EGD) Social History Social History Household Members: Significant Other Household Members Other:: girlfriend Cindy Egan Housing: House Are you a primary manager medicare marketing to a significant other at home: No Do you presently have visiting nurse or other home services: No Alcohol intake: former Patient Tobacco Use Status: Never used Tobacco Second Hand Smoke Exposure: No Advance Directives: Yes Advance Directives on File: Yes Advance Directives Date on File: 12/12/20 service: No Current occupational status: disabled Meds Allergies Allergy/AdvReac Type Severity Reaction Status Date / Time No Known Allergies Allergy Verified 11/21/21 08:47 Active Medications: Current Medications Acetaminophen (Acetaminophen 325 Mg Tablet) 650 mg PO Q6H PRN PRN Reason: Pain, Mild (Pain Scale 1-3) Al Hydroxide/Mg Hydroxide (Magnesium Hydrox/Alum Hydrox 30 Ml Oral.Susp) 30 ml PO Q6H PRN PRN Reason: Dyspepsia Dextrose (Dextrose 50 % 25 Gm/50 Ml Syringe) 25 gm IVPUSH Q15M PRN; Protocol PRN Reason: per Hypoglycemia Standing Ord. Fluoxetine HCl (Fluoxetine Hcl Oral Solution 20 Mg/5 Ml Solution) 20 mg PO DAILY [facility] Folic Acid (Folic Acid 1 Mg Tablet) 1 mg PO DAILY [facility] Glucose (Glucose Gel 15 Gm Gel..Gram.) 15 gm PO Q15M PRN; Protocol PRN Reason: per Hypoglycemia Standing Ord. Sodium Chloride (Ns) 1,000 mls @ 150 mls/hr IVCONT .Q6H40M [facility] Insulin Human Lispro (Insulin Lispro 100 Unit/Ml 3 Ml Vial) 0 unit SUBCUT QIDACHS [facility]; Protocol Lisinopril (Lisinopril 5 Mg Tablet) 5 mg PO DAILY [facility]; Protocol Magnesium Oxide (Magnesium Oxide 400 Mg Tablet) 400 mg PO BID [facility] Ondansetron HCl (Ondansetron Hcl 4 Mg/2 Ml Vial) 4 mg IVPUSH Q8H PRN PRN Reason: Nausea Pantoprazole Sodium (Pantoprazole Sodium 40 Mg/10 Ml Vial) 40 mg IVPUSH BID@0630,1630 [facility] Pharmacy Consult (Consult Rx Perform Med Rec) 1 each MISCELLANE ONCE PRN PRN Reason: Consult order Pharmacy Consult (Consult Rx Etoh Phenob Po Dose) 1 each MISCELLANE ONCE PRN; Protocol PRN Reason: Consult order Phenobarbital 200 mg/ (Phenobarbital 30 mg) 230 mg PO 1999,2299 [facility] Stop: 02/18/22 23:01 Phenobarbital (Phenobarbital 15 Mg Tablet) 45 mg PO BID [facility] Stop: 02/20/22 21:01 Phenobarbital (Phenobarbital 30 Mg Tablet) 30 mg PO BID [facility] Stop: 02/22/22 21:01 Phenobarbital (Phenobarbital 15 Mg Tablet) 15 mg PO DAILY [facility] Stop: 02/24/22 09:01 Sodium Chloride (0.9 % Sodium Chloride Flush 3 Ml Syringe) 3 ml IVFLUSH [facility] Thiamine HCl (Thiamine Hcl 100 Mg Tablet) 100 mg PO DAILY [facility] Last Admin: 02/18/22 18:36 Dose: Not Given Documented by: Vitamin D (Cholecalciferol (Vitamin D3) 25 Mcg Tablet) 50 mcg PO DAILY [facility] Home Medications Medication Instructions Recorded Confirmed Last Taken Type insulin aspart U-100 100 unit/mL 7 unit SUBCUT TID 03/19/21 02/18/22 09/07/21 History (3 mL) subcutaneous pen (Novolog Flexpen U-100 Insulin aspart) insulin detemir U-100 100 unit/mL 20 unit SUBCUT QPM 03/19/21 02/18/22 09/07/21 History (3 mL) subcutaneous pen (Levemir FlexTouch U-100 Insulin) trazodone 50 mg tablet 1 tab PO BEDTIME 03/19/21 02/18/22 09/08/21 History thiamine HCl (vitamin B1) 100 mg 1 tab PO QAM 10/22/21 02/18/22 Unknown History tablet cholecalciferol (vitamin D3) 50 1 cap PO QAM 02/18/22 02/18/22 Unknown History mcg (2,000 unit) capsule fluoxetine 20 mg/5 mL (4 mg/mL) 5 ml PO DAILY 02/18/22 02/18/22 Unknown History oral solution folic acid 1 mg tablet 1 tab PO QAM 02/18/22 02/18/22 Unknown History lisinopril 5 mg tablet 1 tab PO QAM 02/18/22 02/18/22 Unknown History magnesium oxide 400 mg (241.3 mg 1 tab PO BID 02/18/22 02/18/22 Unknown History magnesium) tablet multivitamin 1 tab PO QAM 02/18/22 02/18/22 Unknown History Physical Exam Vital Signs: Vital Signs: Last Vital Signs Temp 98.2 F 02/18/22 18:21 Pulse 115 H 02/18/22 18:35 Resp 20 02/18/22 18:35 BP 144/70 H 02/18/22 18:35 Pulse Ox 96 02/18/22 18:35 BMI result Body Mass Index 21.4 EXAM: GENERAL: The patient is well developed and nontoxic. clubbing of fingers noted VITAL SIGNS:see workflow HEENT: Nonicteric sclerae, PERRLA, EOMI. Oropharynx clear. Moist mucous membranes. Conjunctivae appear well perfused. No thyroid mass. CHEST: Chest wall is nontender. HEART: Regular rate and rhythm without murmurs. LUNGS: Clear to auscultation bilaterally. ABDOMEN: Soft, positive bowel sounds, mildly tender epigastrium, no organomegaly.no flank tenderness SKIN: No rash, no excessive bruising, petechiae, or purpura. NEUROLOGIC: Cranial nerves II-XII intact without motor/sensory deficit. Psych-- midly sedated MS: normal Results Labs CBC & Chem 7: 02/18/22 12:52 02/18/22 12:52 Labs: Short CBC 02/18/22 Range/Units 12:52 WBC 24.3 H (4.8-10.8) X10*3/uL Hgb 15.0 (14.0-18.0) g/dl Hct 47.0 (42.0-52.0) % Plt Count 392 (160-400) X10*3/uL BMP 02/18/22 12:52 Sodium 141 Potassium 4.3 Chloride 87 L Carbon Dioxide 26 BUN 54 H Creatinine 1.81 H Calcium 10.4 H Liver Function 02/18/22 Range/Units 12:52 Total Bilirubin 0.5 (0.0-1.0) mg/dL Direct Bilirubin 0.3 (0.0-0.5) mg/dL AST 29 D (5-37) U/L ALT 28 (0-40) U/L Alkaline Phosphatase 116 (39-117) U/L Albumin 4.3 (3.5-5.0) g/dL Assessment and Plan (1) Alcohol abuse: Status: Acute (2) Esophagitis: Status: Acute Plan 1/ Alcohol abuse with raised lactate, and coffee ground emesis, most likely alcoholic gastritis/esophagitis from vodka ingestion, unclear if he has been compliant with PPI regimen at home PLAN: 1/ Will cancel upcoming EGD, he needs to complete alcohol withdrawal protocol, and fix his lactate, creatinine etc, maybe r/s for next week as o/p 2/ can give PO PPI, pantoprazole 40 mg bId, if unable to tolerate then IV 3/ Can add carafate 1 g BID as well for 1 week 4/ If worsening anemia, and overt GI bleeding then can reconsider need for inpatient EGD 5/ Advised to avoid alcohol in future Procedures Date of Service Date of Service: 02/18/22
[2022-02-18] MEDS: 0.9 % Sodium Chloride 1,000 ML 999 ML IV (19:32)
[2022-02-18 20:07] LABS: Reflex Lactate? 2 Y
[2022-02-18] MEDS: Magnesium Hydrox/Alum Hydrox 30 ML ORAL.SUSP PO (20:41)
--- NOTE | 2022-02-18 20:50 | PC.NURSE ---
awaiting phenobarb from the pharmacy
[2022-02-18 21:23] LABS: Glucose, Whole Blood 273 mg/dL (60-115)
[2022-02-18] MEDS: Magnesium Oxide 400 MG TABLET PO (21:23)
[2022-02-18] MEDS: PHENobarbitaL 200 MG, PHENobarbitaL 30 MG 230 MG PO (21:23)
[2022-02-18] MEDS: 0.9 % Sodium Chloride 1,000 ML 150 ML IVCONT (21:26)
[2022-02-18 21:34] LABS: Glucose, Whole Blood 264 mg/dL (60-115)
[2022-02-18] MEDS: Insulin Lispro 100 UNIT/ML 3 ML VIAL SUBCUT (21:34)
[2022-02-18 21:47] LABS: Appearance Urine CLEAR; Color Urine YELLOW; Glucose Urine UA NEG (NEG); Leukocyte Esterase Urine NEG (NEG); Nitrite Urine NEG (NEG); PH 5.5 (5.0-8.0); Specific Gravity - Urine >= 1.030 (1.005-1.025); UACC Culture Trigger NO; Urine Blood NEG (NEG); Urine Ketones 5 MG/DL (NEG); Urine Protein 2+ MG/DL (NEG-TRACE)
[2022-02-18 21:54] LABS: Bacteria Urine 1+ /LPF; RBC Urine 0 /HPF (0); Squamous Epithelial Cell Urine 1+ /LPF; WBC Urine 0 /HPF (0-4)
[2022-02-18 23:43] VITALS: BP 137/65; PULSE 126; RESP 16; TEMP 37.2; O2SAT 98
[2022-02-19] VITALS (7 sets, daily range): BP systolic 129–155; BP diastolic 55–99; PULSE 89–111; RESP 14–20; TEMP 36.7–37.9; O2SAT 96–98
[2022-02-19] MEDS: PHENobarbitaL 200 MG, PHENobarbitaL 30 MG 230 MG PO (00:20)
--- NOTE | 2022-02-19 03:15 | PC.NURSE ---
Addendum entered by Andi Saucedo RN 02/19/22 06:03: PHLEBOTOMY UNABLE TO DRAW AM LAB-WORK AFTER MULTIPLE ATTEMPTS...REFUSES FURTHER ATTEMPTS Original Note: CARE ASSUMED 23:15..AWAKE..ALERT...MILDLY ANXIOUS....SINUS TACH HR 116-118...HR IMPROVED SINCE PRESENTATION PER SHIFT REPORT...DRINKING LARGE AMOUNTS OF FLUIDS W/O NAUSEA OR ABDOMINAL DISCOMFORT...LOADED WITH PO PHENOBARBITOL PER JAN...REMAINS WITHOUT IV ACCES....MULTIPLE ATTEMPTS BY MULTIPLE ER AND ICU NURSES TO OBTAIN IV ACCESS W/O SUCCESS...DR ODEN UPDATED...IV FLUIDS TO REMAIN ON HOLD PER MD..?PICC OR MIDLINE IN AM IF IV ACCESS NECESSARY..PATIENT CURRENTLY SLEEPING..RESOIRATIONS EASY...S.TACH HR 108-110..NO ECTOPY
[2022-02-19] MEDS: Magnesium Oxide 400 MG TABLET PO ×2 (07:41→22:09)
[2022-02-19] MEDS: Cholecalciferol (Vitamin D3) 25 MCG TABLET 50 MCG PO (07:41)
[2022-02-19] MEDS: PHENobarbitaL 15 MG TABLET 45 MG PO ×2 (07:41→22:07)
[2022-02-19] MEDS: Folic Acid 1 MG TABLET PO (07:42)
[2022-02-19] MEDS: Thiamine HCL 100 MG TABLET PO (07:42)
[2022-02-19] MEDS: Insulin Lispro 100 UNIT/ML 3 ML VIAL SUBCUT ×2 (07:42→12:28)
[2022-02-19] MEDS: lisinopriL 5 MG TABLET PO (07:42)
[2022-02-19 07:47] LABS: Glucose, Whole Blood 219 mg/dL (60-115)
--- NOTE | 2022-02-19 08:30 | MHC.CM.PN ---
CM met with Patient at bedside. Patient lives alone in a house and required no services nor DME PAUNCH TRIMMER. Home no services vs Care Team Interventions r/t ETOH is the goal for dc and CM has initiated and will follow for dc planning. Patient has received Moderna vax X3 and his PCP is through [facility].
[2022-02-19 09:31] LABS: Hemoglobin 12.2 g/dl (14.0-18.0); Mean Corpuscular HGB Conc 32.1 g/dl (31.0-36.0); Mean Corpuscular Hemoglobin 25.2 pg (27.0-33.0); Mean Corpuscular Volume 78.5 fL (80.0-98.0); NRBC Pct Auto 0.2 /100WBC (0.0-0.2); Red Blood Count 4.84 X10*6/uL (4.60-5.80); Red Cell Distribution Width 14.6 % (11.0-16.0); White Blood Count 15.5 X10*3/uL (4.8-10.8)
[2022-02-19 09:56] LABS: Anion Gap 17 (12-20); Blood Urea Nitrogen 41 mg/dL (9-16); Calcium 8.3 mg/dL (8.4-10.2); Carbon Dioxide 26 mmol/L (22-29); Chloride 96 mmol/L (96-108); Creatinine Clr Calc Pharmacy 75.2; Estimated Glomerular Filt Rate > 60; Glucose Random 219 mg/dL (60-115); Potassium 4.5 mmol/L (3.3-5.1); Sodium 134 mmol/L (135-145)
[2022-02-19] MEDS: FLUoxetine HCl Oral Solution 20 MG/5 ML SOLUTION PO (10:10)
[2022-02-19 10:53] LABS: Glucose, Whole Blood 207 mg/dL (60-115)
[2022-02-19 11:12] LABS: Mean Platelet Volume 10.3 fL (9.4-12.4); Platelet Count 196 X10*3/uL (160-400)
[2022-02-19 13:46] LABS: Glucose, Whole Blood 196 mg/dL (60-115)
--- NOTE | 2022-02-19 13:57 | PC.NURSE ---
Dr Tinajero requested that we obtain IV access and provide NS. Pt refused unless he was able to communicate directly with his PCP. In the mean time nursing team has been encouranging PO fluids
--- NOTE | 2022-02-19 17:01 | P.PNIM_ITS ---
Subjective Subjective Date of Service: 02/19/22 Interval History: Patient is somnolent but arousable refusing blood draws and IV placement, complaining of difficulty swallowing is due for repeat esophageal dilatation, complaining of mild epigastric discomfort, no further bouts of nausea or vomiting since admission. Review of Systems Review of Systems: Yes all other systems are reviewed and are negative Physical Exam Vital Signs: Vital Signs: Last Vital Signs Temp 98.8 F 02/19/22 15:31 Pulse 104 H 02/19/22 15:31 Resp 14 02/19/22 15:31 BP 155/99 H 02/19/22 15:31 Pulse Ox 97 02/19/22 15:31 BMI result Body Mass Index 21.4 Const: Other: General? somnolent but easily arousa ble, no acute dist ress.? anicteric s clera Neck? supple no JVD. CVS? regu lar rate rhythm, t achycardia Respira tory lungs clear t o auscultation, no respiratory distr ess, no wheeze, no rhonchi. Gastroin testinal abdomen s oft,?mild epigastr ic tenderness , sandie wel sounds audible ,no guarding , no rigidity. Extremit ies no edema. Neur o nonfocal , movin g all 4 extremity speech clear. Skin no rash Psych spenser ropriate affect Objective Data Active Medications Acetaminophen (Acetaminophen 325 Mg Tablet) 650 mg PO Q6H PRN PRN Reason: Pain, Mild (Pain Scale 1-3) Al Hydroxide/Mg Hydroxide (Magnesium Hydrox/Alum Hydrox 30 Ml Oral.Susp) 30 ml PO Q6H PRN PRN Reason: Dyspepsia Last Admin: 02/18/22 20:41 Dose: 30 ml Documented by: ZOË Dextrose (Dextrose 50 % 25 Gm/50 Ml Syringe) 25 gm IVPUSH Q15M PRN; Protocol PRN Reason: per Hypoglycemia Standing Ord. Fluoxetine HCl (Fluoxetine Hcl Oral Solution 20 Mg/5 Ml Solution) 20 mg PO DAILY [facility] Last Admin: 02/19/22 10:10 Dose: 20 mg Documented by: ELBA Folic Acid (Folic Acid 1 Mg Tablet) 1 mg PO DAILY [facility] Last Admin: 02/19/22 07:42 Dose: 1 mg Documented by: IGLESM Glucose (Glucose Gel 15 Gm Gel..Gram.) 15 gm PO Q15M PRN; Protocol PRN Reason: per Hypoglycemia Standing Ord. Sodium Chloride (Ns) 1,000 mls @ 150 mls/hr IVCONT .Q6H40M [facility] Last Admin: 02/19/22 14:01 Dose: Not Given Documented by: ELBA Non-Admin Reason: Patient Refused Insulin Human Lispro (Insulin Lispro 100 Unit/Ml 3 Ml Vial) 0 unit SUBCUT QIDACHS [facility]; Protocol Last Admin: 02/19/22 12:28 Dose: 4 unit Documented by: ELBA Lisinopril (Lisinopril 5 Mg Tablet) 5 mg PO DAILY [facility]; Protocol Last Admin: 02/19/22 07:42 Dose: 5 mg Documented by: PRESTON Magnesium Oxide (Magnesium Oxide 400 Mg Tablet) 400 mg PO BID [facility] Last Admin: 02/19/22 07:41 Dose: 400 mg Documented by: PRESTON Ondansetron HCl (Ondansetron Hcl 4 Mg/2 Ml Vial) 4 mg IVPUSH Q8H PRN PRN Reason: Nausea Pantoprazole Sodium (Pantoprazole Sodium 40 Mg/10 Ml Vial) 40 mg IVPUSH BID@0630,1630 [facility] Last Admin: 02/19/22 06:03 Dose: Not Given Documented by: FELIPE Non-Admin Reason: No Access Pharmacy Consult (Consult Rx Perform Med Rec) 1 each MISCELLANE ONCE PRN PRN Reason: Consult order Pharmacy Consult (Consult Rx Etoh Phenob Po Dose) 1 each MISCELLANE ONCE PRN; Protocol PRN Reason: Consult order Phenobarbital (Phenobarbital 15 Mg Tablet) 45 mg PO BID [facility] Stop: 02/20/22 21:01 Last Admin: 02/19/22 07:41 Dose: 45 mg Documented by: PRESTON Phenobarbital (Phenobarbital 30 Mg Tablet) 30 mg PO BID [facility] Stop: 02/22/22 21:01 Phenobarbital (Phenobarbital 15 Mg Tablet) 15 mg PO DAILY [facility] Stop: 02/24/22 09:01 Sodium Chloride (0.9 % Sodium Chloride Flush 3 Ml Syringe) 3 ml IVFLUSH QSHIFT [facility] Last Admin: 02/19/22 07:50 Dose: Not Given Documented by: PRESTON Non-Admin Reason: No Access Thiamine HCl (Thiamine Hcl 100 Mg Tablet) 100 mg PO DAILY [facility] Last Admin: 02/19/22 07:42 Dose: 100 mg Documented by: PRESTON Vitamin D (Cholecalciferol (Vitamin D3) 25 Mcg Tablet) 50 mcg PO DAILY [facility] Last Admin: 02/19/22 07:41 Dose: 50 mcg Documented by: PRESTON Labs CBC & Chem 7: 02/19/22 09:00 02/19/22 09:00 Labs: Laboratory Results - last 24 hr 02/18/22 02/18/22 02/18/22 18:04 20:03 21:30 MCV MCH MCHC RDW Plt Count MPV Absolute Nucleated RBC Nucleated RBC % (auto) Anion Gap Estim Creat Clear Calc Estimated GFR POC Glucose 273 H 264 H Random Glucose Lactic Acid F/U @ 2Hr 8.4 H* Lactic Acid F/U @ 4Hr Calcium Urine Color Urine Appearance Urine pH Ur Specific [place] Urine Protein Urine Glucose (UA) Urine Ketones Urine Blood Urine Nitrite Ur Leukocyte Esterase Urine RBC Urine WBC Ur Squamous Epith Cells Urine Bacteria 02/18/22 02/19/22 02/19/22 21:36 06:00 06:55 MCV MCH MCHC RDW Plt Count MPV Absolute Nucleated RBC Nucleated RBC % (auto) Anion Gap Estim Creat Clear Calc Estimated GFR POC Glucose 219 H Random Glucose Lactic Acid F/U @ 2Hr Lactic Acid F/U @ 4Hr Cancelled Calcium Urine Color YELLOW Urine Appearance CLEAR Urine pH 5.5 Ur Specific [place] >= 1.030 H Urine Protein 2+ H Urine Glucose (UA) NEG Urine Ketones 5 Urine Blood NEG Urine Nitrite NEG Ur Leukocyte Esterase NEG Urine RBC 0 Urine WBC 0 Ur Squamous Epith Cells 1+ Urine Bacteria 1+ 02/19/22 02/19/22 02/19/22 09:00 09:00 10:48 MCV 78.5 L MCH 25.2 L MCHC 32.1 RDW 14.6 Plt Count 196 D MPV 10.3 Absolute Nucleated RBC 0.030 H Nucleated RBC % (auto) 0.2 Anion Gap 17 Estim Creat Clear Calc 75.2 Estimated GFR > 60 POC Glucose 207 H Random Glucose 219 H Lactic Acid F/U @ 2Hr Lactic Acid F/U @ 4Hr Calcium 8.3 L D Urine Color Urine Appearance Urine pH Ur Specific [place] Urine Protein Urine Glucose (UA) Urine Ketones Urine Blood Urine Nitrite Ur Leukocyte Esterase Urine RBC Urine WBC Ur Squamous Epith Cells Urine Bacteria 02/19/22 13:42 MCV MCH MCHC RDW Plt Count MPV Absolute Nucleated RBC Nucleated RBC % (auto) Anion Gap Estim Creat Clear Calc Estimated GFR POC Glucose 196 H Random Glucose Lactic Acid F/U @ 2Hr Lactic Acid F/U @ 4Hr Calcium Urine Color Urine Appearance Urine pH Ur Specific [place] Urine Protein Urine Glucose (UA) Urine Ketones Urine Blood Urine Nitrite Ur Leukocyte Esterase Urine RBC Urine WBC Ur Squamous Epith Cells Urine Bacteria Assessment and Plan (1) Esophagitis: Status: Acute (2) Alcohol abuse: Status: Acute (3) Leukocytosis: Status: Acute (4) RONN (acute kidney injury): Status: Acute Plan 57-year-old gentleman with history of alcohol use presented to [facility] due to symptoms of nausea vomiting epigastric pain and alcohol use patient diagnosed to have acute kidney injury, lactic acidosis likely due to alcohol use and dehydration, leukocytosis, alcohol abuse with high risk for alcohol withdrawal, alcohol level 165 ?nausea vomiting with coffee-ground emesis and epigastric pain Likely due to alcohol use underlying gastritis/esophagitis ?No recurrent episode of nausea vomiting, mild epigastric discomfort and difficulty swallowing Seen by Dr. Reyes he recommend to continue PPI and add Carafate, if symptoms persist then will consider inpatient upper endoscopy hematocrit stable, on IV Protonix 40 b.i.d. and transition to by mouth once patient more awake and alert ?continue supportive care with antiemetics IV fluids/patient has no IV access and refusing to have one, discussed importance of IV fluids willl attempt to place IV. ?alcohol abuse and high risk for withdrawal, alcohol level 165 on admission ?Continue phenobarb protocol/ care team consult, continue folic acid, thiamine ?acute kidney injury likely? pre renal with GI loss creatinine normalized with IV fluid. ?lactic acidosis no evidence of DKA likely due to dehydration/ alcohol use will attempt to place IV and aggressively treat with IV fluids follow lactic acid level closely, meanwhile will push by mouth fluids ?leukocytosis likely reactive WBC trending down, no complain of cough, no urinary symptoms, UA unremarkable ?diabetes mellitus, continue on diabetic diet, insulin sliding scale, stable blood sugars continue to hold pre meal insulin and Levemir, due to decreased by mouth intake ?hypertension continue lisinopril , few high blood pressure readings likely due to withdrawal ?mood disorder continue fluoxetine ?DVT prophylaxis with compression boots ?code status full code ?patient will need continued inpatient hospitalization due to persistent lactic acidosis, difficulty swallowing and epigastric pain need aggressive IV hydration and need for repeat endoscopy. Quality Stroke Does the patient have a stroke diagnosis?: No VTE Prior VTE?: No VTE Risk Level:: Medical - moderate - high VTE Device Contraindication: N/A - Device Ordered VTE Drug Contraindication: Treatment Not Indicated
[2022-02-19 17:16] LABS: Glucose, Whole Blood 134 mg/dL (60-115)
[2022-02-19 17:59] LABS: Lactic Acid 1.7 mmol/L (0.5-2.0)
[2022-02-19 20:13] LABS: Glucose, Whole Blood 169 mg/dL (60-115)
[2022-02-19] MEDS: Sucralfate Oral Suspension 1 GM/10 ML ORAL.SUSP PO (22:09)
[2022-02-20 03:23] VITALS: BP 121/61; PULSE 89; RESP 16; TEMP 37.1; O2SAT 98
[2022-02-20 07:08] LABS: Glucose, Whole Blood 326 mg/dL (60-115)
[2022-02-20 07:14] VITALS: BP 124/60; PULSE 92; RESP 20; TEMP 36.7; O2SAT 99
[2022-02-20] MEDS: Insulin Lispro 100 UNIT/ML 3 ML VIAL SUBCUT ×3 (07:46→20:52)
--- NOTE | 2022-02-20 12:35 | HO.MIDLINE ---
PICC Line Insertion MIDLINE INSERTION Diagnosis: N/V Indication: POOR AND DIFFICULT IV ACCESS; NEEDS IV ACCESS Pertinent Labs: REVIEWED Technique: Using sterile technique including cap and mask, glove and drape, the RIGHT arm was prepped and draped in the usual sterile fashion of full barrier technique with CHG. Using ultrasound guidance, BASILIC vein access was obtained IN SINGLE ATTEMPT BY THIS RN; x1 PRIOR UNSUCCESSFUL ATTEMPT BY RN LIDIA Muñoz, SO TOTAL x2 ATTEMPTS. A SINGLE LUMEN, NON-PASV, (20G X 10CM) MIDLINE was positioned. The procedure was performed in S-272. Ultrasound was used to document vein patency and for needle entry. A formal ultrasound picture was recorded. Vascular Occupational Nurse has released the line for use and it is currently dressed with a StatLock, Tegaderm, and CHG disc. Verification has been performed for blood return and line patency. Arm Circumference: 29 CM Equipment: [employer] POWERGLIDE PRO Catheter Type: SINGLE LUMEN, NONPASV, (20G X 10CM) Lot #: [id number]
--- NOTE | 2022-02-20 12:59 | MHC.SL.SWA ---
Speech Pathologist Impression: Risk of Aspiration Due to: Poor PO Intake Dysphasia Diet Status: concerns related to a GI condition unspecified. MD may need to confer with GI team to determine if GI diet may be supportive for patient care. From a structural and functional standpoint the patient is able to chew and swallow safely. Liquid Consistency and Strategies for Safe Swallow: Liquid Intake Recommendation: Thin Liquid Intake Strategies: Small Sips Solid Food Consistency: Dietary Recommendations: Regular Additional Modifications to Solid Foods: Oral Medication Intake: Whole with Liquid Please contact the pharmacy regarding appropriate crushable or liquid drug formulations that are available whenever modified delivery is recommended. Compensatory Strategies and Precautions to be Taken for Safe Swallow: Sitting Upright (90 deg) Supervision While Eating and Drinking for Safe Swallow: None Needed Foods to Avoid: acidic items Swallowing Recommended Treatments: Recommendation for Speech: Comment: No need to follow up from MELT DOWN FURNACE OPERATOR Frequency/Duration: NA Date Range for Service Req: Timeline to reassess: Tower Switch Operator Clinican/Clinical Fellow: No Supervisory Statement: I have reviewed and agree with the student/clinical fellow's documentation: N/A Speech Language Pathologist: Shayy Dudley M.A., CCC-MELT DOWN FURNACE OPERATOR
[2022-02-20 13:06] VITALS: BP 157/79; PULSE 97; RESP 20; TEMP 37.2; O2SAT 98
--- NOTE | 2022-02-20 13:32 | P.PNIM_ITS ---
Subjective Subjective Date of Service: 02/20/22 Interval History: Complaining of difficulty swallowing only able to keep coffee down, also complaining of epigastric discomfort denies headache, lightheadedness, dizziness, no acute overnight issues. Review of Systems CVS no chest pain or palpitation Respiratory no cough no shortness of breath no urinary urgency, no frequency Review of Systems: Yes all other systems are reviewed and are negative Physical Exam Vital Signs: Vital Signs: Last Vital Signs Temp 99.0 F 02/20/22 13:06 Pulse 97 02/20/22 13:06 Resp 20 02/20/22 13:06 BP 157/79 H 02/20/22 13:06 Pulse Ox 98 02/20/22 13:06 BMI result Body Mass Index 21.4 Const: Other: General awake alert, no acute distress. Anicteric sclera Neck supple no JVD. CVS regular rate rhythm, Respiratory lungs clear to auscultation, no respiratory distress, no wheeze, no rhonchi. Gastrointestinal abdomen soft, mild epigastric tenderness, bowel sounds audible Extremities no edema. Neuro nonfocal ,speech clear, no tremor Skin no rash Objective Data Active Medications Acetaminophen (Acetaminophen 325 Mg Tablet) 650 mg PO Q6H PRN PRN Reason: Pain, Mild (Pain Scale 1-3) Al Hydroxide/Mg Hydroxide (Magnesium Hydrox/Alum Hydrox 30 Ml Oral.Susp) 30 ml PO Q6H PRN PRN Reason: Dyspepsia Last Admin: 02/18/22 20:41 Dose: 30 ml Documented by: ZOË Dextrose (Dextrose 50 % 25 Gm/50 Ml Syringe) 25 gm IVPUSH Q15M PRN; Protocol PRN Reason: per Hypoglycemia Standing Ord. Fluoxetine HCl (Fluoxetine Hcl Oral Solution 20 Mg/5 Ml Solution) 20 mg PO DAILY [facility] Last Admin: 02/20/22 10:36 Dose: Not Given Documented by: SKIP Non-Admin Reason: Patient Refused Folic Acid (Folic Acid 1 Mg Tablet) 1 mg PO DAILY [facility] Last Admin: 02/20/22 10:37 Dose: Not Given Documented by: SKIP Non-Admin Reason: Patient Refused Glucose (Glucose Gel 15 Gm Gel..Gram.) 15 gm PO Q15M PRN; Protocol PRN Reason: per Hypoglycemia Standing Ord. Sodium Chloride (Ns) 1,000 mls @ 150 mls/hr IVCONT .Q6H40M [facility] Last Admin: 02/20/22 10:36 Dose: Not Given Documented by: SKIP Non-Admin Reason: No Access Insulin Human Lispro (Insulin Lispro 100 Unit/Ml 3 Ml Vial) 0 unit SUBCUT QIDACHS [facility]; Protocol Last Admin: 02/20/22 12:06 Dose: Not Given Documented by: SKIP Non-Admin Reason: Off Unit: Surgery Lisinopril (Lisinopril 5 Mg Tablet) 5 mg PO DAILY [facility]; Protocol Last Admin: 02/20/22 10:37 Dose: Not Given Documented by: SKIP Non-Admin Reason: Patient Refused Magnesium Oxide (Magnesium Oxide 400 Mg Tablet) 400 mg PO BID [facility] Last Admin: 02/20/22 10:37 Dose: Not Given Documented by: SKIP Non-Admin Reason: Patient Refused Omeprazole (Omeprazole 20 Mg/10 Ml Susp.Recon) 40 mg PO BID@0630,1630 [facility] Last Admin: 02/20/22 06:27 Dose: 40 mg Documented by: RACHEL Ondansetron HCl (Ondansetron Hcl 4 Mg/2 Ml Vial) 4 mg IVPUSH Q8H PRN PRN Reason: Nausea Pharmacy Consult (Consult Rx Perform Med Rec) 1 each MISCELLANE ONCE PRN PRN Reason: Consult order Pharmacy Consult (Consult Rx Etoh Phenob Po Dose) 1 each MISCELLANE ONCE PRN; Protocol PRN Reason: Consult order Phenobarbital (Phenobarbital 15 Mg Tablet) 45 mg PO BID [facility] Stop: 02/20/22 21:01 Last Admin: 02/20/22 10:37 Dose: Not Given Documented by: SKIP Non-Admin Reason: Patient Refused Phenobarbital (Phenobarbital 30 Mg Tablet) 30 mg PO BID [facility] Stop: 02/22/22 21:01 Phenobarbital (Phenobarbital 15 Mg Tablet) 15 mg PO DAILY [facility] Stop: 02/24/22 09:01 Sodium Chloride (0.9 % Sodium Chloride Flush 3 Ml Syringe) 3 ml IVFLUSH QSHIFT [facility] Last Admin: 02/20/22 07:47 Dose: Not Given Documented by: SKIP Non-Admin Reason: No Access Sucralfate (Sucralfate Oral Suspension 1 Gm/10 Ml Oral.Susp) 1 gm PO BID [facility] Last Admin: 02/20/22 10:37 Dose: Not Given Documented by: SKIP Non-Admin Reason: Patient Refused Thiamine HCl (Thiamine Hcl 100 Mg Tablet) 100 mg PO DAILY [facility] Last Admin: 02/20/22 10:37 Dose: Not Given Documented by: SKIP Non-Admin Reason: Patient Refused Vitamin D (Cholecalciferol (Vitamin D3) 25 Mcg Tablet) 50 mcg PO DAILY [facility] Last Admin: 02/20/22 10:36 Dose: Not Given Documented by: SKIP Non-Admin Reason: Patient Refused Labs CBC & Chem 7: 02/19/22 09:00 02/19/22 09:00 Labs: Laboratory Results - last 24 hr 02/19/22 02/19/22 02/19/22 06:00 13:42 17:10 POC Glucose 196 H 134 H Lactic Acid Lactic Acid F/U @ 4Hr Cancelled 02/19/22 02/19/22 02/20/22 17:38 20:09 07:04 POC Glucose 169 H 326 H Lactic Acid 1.7 Lactic Acid F/U @ 4Hr Assessment and Plan (1) Esophagitis: Status: Acute (2) Alcohol abuse: Status: Acute (3) Leukocytosis: Status: Acute (4) RONN (acute kidney injury): Status: Acute Plan 57-year-old gentleman with history of alcohol use presented to [facility] due to symptoms of nausea vomiting epigastric pain and alcohol use patient diagnosed to have acute kidney injury, lactic acidosis likely due to alcohol use and dehydration, leukocytosis, alcohol abuse with high risk for alcohol withdrawal, alcohol level 165 Dysphagia Unable to swallow due to pain with history of esophageal stricture status post prior dilatation was scheduled to undergo EGD and repeat dilatation yesterday but patient got admitted due to alcohol withdrawal and coffee-ground emesis Patient evaluated by GI Dr. Reyes, he recommend EGD next week, since concern for esophageal swelling with recent alcohol use and multiple episodes of coffee- ground emesis Continue PPI/Carafate, obtain speech therapy eval Place midline due to poor IV access with multiple failed attempts ?nausea vomiting with coffee-ground emesis and epigastric pain Likely due to alcohol use underlying gastritis/esophagitis Persistent epigastric pain , no recurrent vomiting, continue PPI and Carafate. ?alcohol abuse and high risk for withdrawal, alcohol level 165 on admission ?Continue phenobarb protocol/ care team consult, continue folic acid, thiamine normal magnesium and electrolytes Strongly recommend to abstain from alcohol ?acute kidney injury likely pre renal with GI loss creatinine normalized with IV fluid. ?lactic acidosis no evidence of DKA likely due to dehydration/ alcohol use , la ctic acid normalized ?leukocytosis likely reactive WBC trended down, no complain of cough, no urinary symptoms, UA unremarkable. ?diabetes mellitus, blood sugar fluctuating, continue on diabetic diet, and insulin sliding scale, hold pre meal insulin and Levemir, due to decreased by mouth intake ?hypertension continue lisinopril , few high blood pressure readings likely due to withdrawal ?mood disorder continue fluoxetine ?DVT prophylaxis with compression boots ?code status full code ?patient will need continued inpatient hospitalization due to dysphagia unable to keep food down, will need EGD and esophageal dilatation Quality Stroke Does the patient have a stroke diagnosis?: No VTE Prior VTE?: No VTE Risk Level:: Medical - moderate - high VTE Device Contraindication: N/A - Device Ordered VTE Drug Contraindication: Treatment Not Indicated
[2022-02-20] MEDS: 0.9 % Sodium Chloride 1,000 ML 150 ML IVCONT ×2 (14:16→20:52)
--- NOTE | 2022-02-20 15:15 | MHC.CM.PN ---
EMR REVIEWED, PT REMAINS ON PHENOBARB PROTOCOL, PT HAVING DIFFICULTY SWALLOWING D/T ETOH RELATED ESOPHAGEAL SWELLING AND MULT EPISODES OF COFFEE GROUND EMESIS, PT TO HAVE EGD NEXT WEEK WHEN SWELLING IS DOWN, NO PLAN FOR D/C OVER W/E, CM WILL CONT TO FOLLOW D/C NEEDS.
[2022-02-20 15:32] VITALS: BP 162/76; PULSE 86; RESP 17; TEMP 38.1; O2SAT 98
[2022-02-20 15:39] LABS: Glucose, Whole Blood 291 mg/dL (60-115)
[2022-02-20 19:38] VITALS: BP 160/81; PULSE 86; RESP 18; TEMP 36.8; O2SAT 94
[2022-02-20 20:33] LABS: Glucose, Whole Blood 358 mg/dL (60-115)
[2022-02-20] MEDS: PHENobarbitaL 15 MG TABLET 45 MG PO (20:51)
[2022-02-20] MEDS: Magnesium Oxide 400 MG TABLET PO (20:51)
[2022-02-20] MEDS: Sucralfate Oral Suspension 1 GM/10 ML ORAL.SUSP PO (20:52)
[2022-02-20] MEDS: traZODone HCL 50 MG TABLET PO (21:44)
[2022-02-20 23:23] VITALS: BP 151/62; PULSE 83; RESP 18; TEMP 36.8; O2SAT 97
[2022-02-21 02:32] VITALS: BP 143/85; PULSE 82; RESP 18; TEMP 36.7; O2SAT 99
[2022-02-21] MEDS: 0.9 % Sodium Chloride 1,000 ML 150 ML IVCONT (06:10)
[2022-02-21 07:29] VITALS: BP 166/79; PULSE 82; RESP 18; TEMP 36.9; O2SAT 99
[2022-02-21 07:36] LABS: Glucose, Whole Blood 217 mg/dL (60-115)
[2022-02-21] MEDS: Insulin Lispro 100 UNIT/ML 3 ML VIAL SUBCUT ×4 (08:24→21:28)
[2022-02-21] MEDS: FLUoxetine HCl Oral Solution 20 MG/5 ML SOLUTION PO (08:25)
[2022-02-21] MEDS: Sucralfate Oral Suspension 1 GM/10 ML ORAL.SUSP PO ×2 (08:25→21:28)
[2022-02-21] MEDS: Cholecalciferol (Vitamin D3) 25 MCG TABLET 50 MCG PO (08:25)
[2022-02-21] MEDS: Thiamine HCL 100 MG TABLET PO (08:26)
[2022-02-21] MEDS: lisinopriL 5 MG TABLET PO (08:26)
[2022-02-21] MEDS: PHENobarbitaL 30 MG TABLET PO ×2 (08:26→21:28)
[2022-02-21] MEDS: Folic Acid 1 MG TABLET PO (08:26)
[2022-02-21] MEDS: Magnesium Oxide 400 MG TABLET PO ×2 (08:26→21:28)
[2022-02-21 11:28] VITALS: BP 157/74; PULSE 79; RESP 18; TEMP 37.5; O2SAT 98
[2022-02-21 11:36] LABS: Glucose, Whole Blood 267 mg/dL (60-115)
--- NOTE | 2022-02-21 12:57 | P.PNIM_ITS ---
Subjective Subjective Date of Service: 02/21/22 Interval History: Unable to tolerate solids, get nauseous with pills, mostly drinking liquids, persistent mild epigastric discomfort, no coffee-ground emesis denies tremors, no chest pain, no palpitations. Review of Systems Review of Systems: Yes all other systems are reviewed and are negative Physical Exam Vital Signs: Vital Signs: Last Vital Signs Temp 99.5 F 02/21/22 11:28 Pulse 79 02/21/22 11:28 Resp 18 02/21/22 11:28 BP 157/74 H 02/21/22 11:28 Pulse Ox 98 02/21/22 11:28 BMI result Body Mass Index 21.4 Const: Other: General awake alert, no acute distress.? Anicteric sclera Neck supple no JVD. CVS? regular rate rhythm, Respiratory lungs clear to auscultation, no respiratory distress, no wheeze, no rhonchi. Gastrointestinal abdomen soft, mild epigastric tenderness, nondistended, bowel sounds audible Extremities no edema. Neuro nonfocal ,speech clear, no tremor Skin no rash Objective Data Active Medications Acetaminophen (Acetaminophen 325 Mg Tablet) 650 mg PO Q6H PRN PRN Reason: Pain, Mild (Pain Scale 1-3) Al Hydroxide/Mg Hydroxide (Magnesium Hydrox/Alum Hydrox 30 Ml Oral.Susp) 30 ml PO Q6H PRN PRN Reason: Dyspepsia Last Admin: 02/18/22 20:41 Dose: 30 ml Documented by: ZOË Dextrose (Dextrose 50 % 25 Gm/50 Ml Syringe) 25 gm IVPUSH Q15M PRN; Protocol PRN Reason: per Hypoglycemia Standing Ord. Fluoxetine HCl (Fluoxetine Hcl Oral Solution 20 Mg/5 Ml Solution) 20 mg PO DAILY [facility] Last Admin: 02/21/22 08:25 Dose: 20 mg Documented by: BROEri Folic Acid (Folic Acid 1 Mg Tablet) 1 mg PO DAILY [facility] Last Admin: 02/21/22 08:26 Dose: 1 mg Documented by: EUGENIA Glucose (Glucose Gel 15 Gm Gel..Gram.) 15 gm PO Q15M PRN; Protocol PRN Reason: per Hypoglycemia Standing Ord. Insulin Human Lispro (Insulin Lispro 100 Unit/Ml 3 Ml Vial) 0 unit SUBCUT QIDACHS [facility]; Protocol Last Admin: 02/21/22 11:49 Dose: 6 unit Documented by: EUGENIA Lisinopril (Lisinopril 5 Mg Tablet) 5 mg PO DAILY [facility]; Protocol Last Admin: 02/21/22 08:26 Dose: 5 mg Documented by: EUGENIA Magnesium Oxide (Magnesium Oxide 400 Mg Tablet) 400 mg PO BID [facility] Last Admin: 02/21/22 08:26 Dose: 400 mg Documented by: EUGENIA Omeprazole (Omeprazole 20 Mg/10 Ml Susp.Recon) 40 mg PO BID@0630,1630 [facility] Last Admin: 02/21/22 06:09 Dose: 40 mg Documented by: KISHOR Ondansetron HCl (Ondansetron Hcl 4 Mg/2 Ml Vial) 4 mg IVPUSH Q8H PRN PRN Reason: Nausea Pharmacy Consult (Consult Rx Perform Med Rec) 1 each MISCELLANE ONCE PRN PRN Reason: Consult order Pharmacy Consult (Consult Rx Etoh Phenob Po Dose) 1 each MISCELLANE ONCE PRN; Protocol PRN Reason: Consult order Phenobarbital (Phenobarbital 30 Mg Tablet) 30 mg PO BID [facility] Stop: 02/22/22 21:01 Last Admin: 02/21/22 08:26 Dose: 30 mg Documented by: EUGENIA Phenobarbital (Phenobarbital 15 Mg Tablet) 15 mg PO DAILY [facility] Stop: 02/24/22 09:01 Sodium Chloride (0.9 % Sodium Chloride Flush 3 Ml Syringe) 3 ml IVFLUSH QSHIFT [facility] Last Admin: 02/21/22 08:02 Dose: Not Given Documented by: EUGENIA Non-Admin Reason: IV Running Sucralfate (Sucralfate Oral Suspension 1 Gm/10 Ml Oral.Susp) 1 gm PO BID [facility] Last Admin: 02/21/22 08:25 Dose: 1 gm Documented by: EUGENIA Thiamine HCl (Thiamine Hcl 100 Mg Tablet) 100 mg PO DAILY [facility] Last Admin: 02/21/22 08:26 Dose: 100 mg Documented by: EUGENIA Vitamin D (Cholecalciferol (Vitamin D3) 25 Mcg Tablet) 50 mcg PO DAILY [facility] Last Admin: 02/21/22 08:25 Dose: 50 mcg Documented by: EUGENIA Labs CBC & Chem 7: 02/19/22 09:00 02/19/22 09:00 Labs: Laboratory Results - last 24 hr 02/20/22 02/20/22 02/21/22 15:35 20:29 07:31 POC Glucose 291 H 358 H* 217 H 02/21/22 11:30 POC Glucose 267 H Assessment and Plan (1) Esophagitis: Status: Acute (2) Alcohol abuse: Status: Acute (3) Leukocytosis: Status: Acute (4) RONN (acute kidney injury): Status: Acute Plan 57-year-old gentleman with history of alcohol use presented to [facility] due to symptoms of nausea vomiting epigastric pain and alcohol use patient diagnosed to have acute kidney injury, lactic acidosis likely due to alcohol use and dehydration, leukocytosis, alcohol abuse with high risk for alcohol withdrawal, alcohol level 165 Dysphagia/esophageal stricture Unable to swallow due to pain with history of esophageal stricture status post prior dilatation was scheduled to undergo EGD and repeat dilatation but patient got admitted due to alcohol withdrawal and coffee-ground emesis Patient evaluated by GI Dr. Reyes, he recommend EGD next week, since concern for esophageal swelling with recent alcohol use and multiple episodes of coffee- ground emesis Continue PPI/Carafate, will add Ensure can Place midline due to poor IV access/transitioned to IV medications if unable to take by mouth meds ?nausea vomiting with coffee-ground emesis and epigastric pain Likely due to alcohol use underlying gastritis/esophagitis/esophageal stricture Persistent epigastric pain , no recurrent vomiting, continue PPI and Carafate. ?alcohol abuse and high risk for withdrawal, alcohol level 165 on admission ?Continue phenobarb protocol/ care team consult, continue folic acid, thiamine normal magnesium and electrolytes Strongly recommend to abstain from alcohol ?acute kidney injury likely pre renal with GI loss creatinine normalized with IV fluid. ?lactic acidosis no evidence of DKA likely due to dehydration/ alcohol use , lactic acid normalized , DC IV fluid ?leukocytosis likely reactive WBC trended down, no complain of cough, no urinary symptoms, UA unremarkable. ?diabetes mellitus, blood sugar fluctuating, continue on diabetic diet, and insulin sliding scale, hold pre meal insulin and placed on low-dose Lantus at home takes Levemir 20 units at p.m. ?hypertension continue lisinopril , few high blood pressure readings likely due to withdrawal ?mood disorder continue fluoxetine ?DVT prophylaxis with compression boots ?code status full code ?patient will need continued inpatient hospitalization due to dysphagia unable to keep food down, with recurrent nausea vomiting, will need EGD and esophageal dilatation scheduled for 02/24 Quality Stroke Does the patient have a stroke diagnosis?: No VTE Prior VTE?: No VTE Risk Level:: Medical - moderate - high VTE Device Contraindication: N/A - Device Ordered VTE Drug Contraindication: Treatment Not Indicated
[2022-02-21 15:02] VITALS: BP 144/68; PULSE 74; RESP 17; TEMP 36.8; O2SAT 98
--- NOTE | 2022-02-21 15:05 | MHC.RECOVSUP ---
Recovery Support note: Patient is a 57 year old Azerbaijani speaking male who presented to [facility] ED due to vomiting after drinking. Patient is known to this telegraphic typewriter mechanic from previous consultations. Patient reports he was sober for about one year and relapsed the same day he presented to the hospital. 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 Patient also reports he is a member of [employer] and that he finds support there. Patient reports he relapsed due to multiple life stressors, including his inability to swallow food. Reviewed supports and discussed relapse prevention with patient. Encouraged patient to feel proud of his period of sobriety and the fact that he sought help the same day he relapsed. Discussed with patient how far he has come over the last year and encouraged patient to continue making progress with his recovery. Patient reports he was on Vivitrol for a period of time and found it helpful however he reports he did just as well off the medication. Encouraged patient to consider restarting the medication if he thinks it would be helpful and patient acknowledged. Patient is interested in having a recovery operator check in with him while he is in the hospital. This telegraphic typewriter mechanic will refer patient to recovery operator to continue the discussion of recovery supports.
[2022-02-21] MEDS: 0.9 % Sodium Chloride Flush 3 ML SYRINGE IVFLUSH ×2 (16:55→21:29)
[2022-02-21 16:59] LABS: Glucose, Whole Blood 311 mg/dL (60-115)
[2022-02-21 19:19] VITALS: BP 135/70; PULSE 79; RESP 17; TEMP 37.2; O2SAT 98
[2022-02-21 21:19] LABS: Glucose, Whole Blood 397 mg/dL (60-115)
[2022-02-21] MEDS: traZODone HCL 50 MG TABLET PO (21:28)
[2022-02-21 23:22] VITALS: BP 131/71; PULSE 85; RESP 18; TEMP 37.3; O2SAT 95
[2022-02-22 02:58] VITALS: BP 122/60; PULSE 74; RESP 18; TEMP 36.9; O2SAT 97
[2022-02-22 07:34] VITALS: BP 136/71; PULSE 82; RESP 16; TEMP 37.3; O2SAT 98
--- NOTE | 2022-02-22 07:53 | PC.NURSE ---
Stat BMP and Mag ordered due to peaked T waves on tele and pts complaints of heartburn. Pt refused labs. This RN educated patient on the purpose of the lab draws. Pt states he'll think about it . Oncoming RN Lu made aware.
[2022-02-22] MEDS: 0.9 % Sodium Chloride Flush 3 ML SYRINGE IVFLUSH ×3 (09:20→21:12)
[2022-02-22] MEDS: Magnesium Oxide 400 MG TABLET PO ×2 (09:20→21:11)
[2022-02-22] MEDS: Insulin Lispro 100 UNIT/ML 3 ML VIAL SUBCUT ×4 (09:20→21:09)
[2022-02-22] MEDS: Cholecalciferol (Vitamin D3) 25 MCG TABLET 50 MCG PO (09:20)
[2022-02-22] MEDS: Folic Acid 1 MG TABLET PO (09:20)
[2022-02-22] MEDS: Thiamine HCL 100 MG TABLET PO (09:20)
[2022-02-22] MEDS: lisinopriL 5 MG TABLET PO (09:20)
[2022-02-22] MEDS: PHENobarbitaL 30 MG TABLET PO (09:20)
[2022-02-22] MEDS: Sucralfate Oral Suspension 1 GM/10 ML ORAL.SUSP PO ×2 (09:20→21:11)
[2022-02-22] MEDS: FLUoxetine HCl Oral Solution 20 MG/5 ML SOLUTION PO (09:20)
--- NOTE | 2022-02-22 09:41 | P.PNIM_ITS ---
Subjective Subjective Date of Service: 02/22/22 Interval History: Patient unable to tolerate pureed diet, can take coffee and liquid, mild epigastric discomfort, no nausea no vomiting no alcohol withdrawal symptoms, noted to have 4 beat run of V-tach patient declined lab work. Patient denies chest pain, no palpitations no lightheadedness, no dizziness. Review of Systems Review of Systems: Yes all other systems are reviewed and are negative Physical Exam Vital Signs: Vital Signs: Last Vital Signs Temp 99.2 F 02/22/22 07:34 Pulse 82 02/22/22 07:34 Resp 16 02/22/22 07:34 BP 136/71 02/22/22 07:34 Pulse Ox 98 02/22/22 07:34 BMI result Body Mass Index 21.4 Const: Other: General awake aler t, no acute distre ss.? Anicteric scl era Neck supple no JVD. CVS? regular rate rhythm, Resp iratory lungs deepak r to auscultation, no respiratory di stress, no wheeze, no rhonchi. Gastr ointestinal abdome n soft, mild epiga stric tenderness, nondistended, isaiah l sounds audible E xtremities no michel a. Neuro nonfocal ,speech clear, no tremor Skin no kasi h Objective Data Active Medications Acetaminophen (Acetaminophen 325 Mg Tablet) 650 mg PO Q6H PRN PRN Reason: Pain, Mild (Pain Scale 1-3) Al Hydroxide/Mg Hydroxide (Magnesium Hydrox/Alum Hydrox 30 Ml Oral.Susp) 30 ml PO Q6H PRN PRN Reason: Dyspepsia Last Admin: 02/18/22 20:41 Dose: 30 ml Documented by: ZOË Dextrose (Dextrose 50 % 25 Gm/50 Ml Syringe) 25 gm IVPUSH Q15M PRN; Protocol PRN Reason: per Hypoglycemia Standing Ord. Fluoxetine HCl (Fluoxetine Hcl Oral Solution 20 Mg/5 Ml Solution) 20 mg PO DAILY [facility] Last Admin: 02/22/22 09:20 Dose: 20 mg Documented by: SERGO Folic Acid (Folic Acid 1 Mg Tablet) 1 mg PO DAILY [facility] Last Admin: 02/22/22 09:20 Dose: 1 mg Documented by: SERGO Glucose (Glucose Gel 15 Gm Gel..Gram.) 15 gm PO Q15M PRN; Protocol PRN Reason: per Hypoglycemia Standing Ord. Insulin Human Lispro (Insulin Lispro 100 Unit/Ml 3 Ml Vial) 0 unit SUBCUT QIDACHS [facility]; Protocol Last Admin: 02/22/22 09:20 Dose: 10 unit Documented by: SERGO Lisinopril (Lisinopril 5 Mg Tablet) 5 mg PO DAILY [facility]; Protocol Last Admin: 02/22/22 09:20 Dose: 5 mg Documented by: SERGO Magnesium Oxide (Magnesium Oxide 400 Mg Tablet) 400 mg PO BID [facility] Last Admin: 02/22/22 09:20 Dose: 400 mg Documented by: SERGO Omeprazole (Omeprazole 20 Mg/10 Ml Susp.Recon) 40 mg PO BID@0630,1630 [facility] Last Admin: 02/22/22 05:13 Dose: 40 mg Documented by: KISHOR Ondansetron HCl (Ondansetron Hcl 4 Mg/2 Ml Vial) 4 mg IVPUSH Q8H PRN PRN Reason: Nausea Pharmacy Consult (Consult Rx Perform Med Rec) 1 each MISCELLANE ONCE PRN PRN Reason: Consult order Pharmacy Consult (Consult Rx Etoh Phenob Po Dose) 1 each MISCELLANE ONCE PRN; Protocol PRN Reason: Consult order Phenobarbital (Phenobarbital 30 Mg Tablet) 30 mg PO BID [facility] Stop: 02/22/22 21:01 Last Admin: 02/22/22 09:20 Dose: 30 mg Documented by: SERGO Phenobarbital (Phenobarbital 15 Mg Tablet) 15 mg PO DAILY [facility] Stop: 02/24/22 09:01 Sodium Chloride (0.9 % Sodium Chloride Flush 3 Ml [facility]ringe) [facility] Admin: 02/22/22 09:20 Dose: 3 ml Documented by: SERGO Sucralfate (Sucralfate Oral Suspension 1 Gm/10 Ml Oral.Susp) 1 gm PO BID [facility] Last Admin: 02/22/22 09:20 Dose: 1 gm Documented by: SERGO Thiamine HCl (Thiamine Hcl 100 Mg Tablet) 100 mg PO DAILY [facility] Last Admin: 02/22/22 09:20 Dose: 100 mg Documented by: SERGO Trazodone HCl (Trazodone Hcl 50 Mg Tablet) 50 mg PO BEDTIME PRN PRN Reason: sleep Last Admin: 02/21/22 21:28 Dose: 50 mg Documented by: KISHOR Vitamin D (Cholecalciferol (Vitamin D3) 25 Mcg Tablet) 50 mcg PO DAILY [facility] Last Admin: 02/22/22 09:20 Dose: 50 mcg Documented by: SERGO Labs CBC & Chem 7: 02/19/22 09:00 02/19/22 09:00 Labs: Laboratory Results - last 24 hr 02/21/22 02/21/22 02/21/22 11:30 16:50 21:15 POC Glucose 267 H 311 H 397 H* Assessment and Plan (1) Esophagitis: Status: Acute (2) Alcohol abuse: Status: Acute (3) Leukocytosis: Status: Acute (4) RONN (acute kidney injury): Status: Acute Plan 57-year-old gentleman with history of alcohol use presented to [facility] due to symptoms of nausea vomiting epigastric pain and alcohol use patient diagnosed to have acute kidney injury, lactic acidosis likely due to alcohol use and dehydration, leukocytosis, alcohol abuse with high risk for alcohol withdrawal, alcohol level 165 Dysphagia/esophageal stricture Unable to swallow due to pain with history of esophageal stricture status post prior dilatation was scheduled to undergo EGD and repeat dilatation but patient got admitted due to alcohol withdrawal and coffee-ground emesis Patient evaluated by GI Dr. Reyes, he recommend EGD next week, since concern for esophageal swelling with recent alcohol use and multiple episodes of coffee- ground emesis Continue PPI/Carafate, Ensure can transition to IV medications if unable to take by mouth meds ?nausea vomiting with coffee-ground emesis and epigastric pain Likely due to alcohol use underlying gastritis/esophagitis/esophageal stricture Persistent epigastric pain , no recurrent vomiting, continue PPI and Carafate. ?alcohol abuse and high risk for withdrawal, alcohol level 165 on admission ?Continue phenobarb protocol/ care team consult, continue folic acid, thiamine normal magnesium and electrolytes Strongly recommend to abstain from alcohol ?acute kidney injury likely pre renal with GI loss creatinine normalized with IV fluid. ?lactic acidosis no evidence of DKA likely due to dehydration/ alcohol use , lactic acid normalized , DC IV fluid ?leukocytosis likely reactive WBC trended down, no complain of cough, no urinary symptoms, UA unremarkable. ?diabetes mellitus, blood sugar fluctuating, continue on diabetic diet, and insulin sliding scale, hold pre meal insulin and cont Lantus low dose, at home takes Levemir 20 units at p.m. ?hypertension continue lisinopril , blood pressure improved and is in normal range Four beats run of V-tach patient remained asymptomatic will keep magnesium greater than 2 and potassium greater than 4, patient refusing labs,informed importance of following labs. ?mood disorder continue fluoxetine ?DVT prophylaxis with compression boots ?code status full code ?patient will need continued inpatient hospitalization due to dysphagia unable to keep food down, with recurrent nausea vomiting, will need EGD and esophageal dilatation scheduled for 02/24 Quality Stroke Does the patient have a stroke diagnosis?: No VTE Prior VTE?: No VTE Risk Level:: Medical - moderate - high VTE Device Contraindication: N/A - Device Ordered VTE Drug Contraindication: Treatment Not Indicated
[2022-02-22 09:46] LABS: Glucose, Whole Blood 289 mg/dL (60-115)
[2022-02-22 11:43] VITALS: BP 142/73; PULSE 81; RESP 17; TEMP 37; O2SAT 99
[2022-02-22 12:14] LABS: Glucose, Whole Blood 320 mg/dL (60-115)
[2022-02-22 15:30] VITALS: BP 138/67; PULSE 83; RESP 14; TEMP 37.1; O2SAT 97
[2022-02-22 16:46] LABS: Glucose, Whole Blood 287 mg/dL (60-115)
[2022-02-22 20:00] VITALS: BP 142/67; PULSE 94; RESP 18; TEMP 37.7; O2SAT 98
[2022-02-22 20:34] LABS: Glucose, Whole Blood 456 mg/dL (60-115)
[2022-02-22] MEDS: Insulin Glargine,Hum.rec.anlog 100 UNIT/ML 10 ML VIAL 10 UNIT SUBCUT (21:09)
[2022-02-22] MEDS: traZODone HCL 50 MG TABLET PO (21:11)
[2022-02-22 23:14] VITALS: BP 150/69; PULSE 82; RESP 18; TEMP 37.1; O2SAT 97
[2022-02-22 23:26] LABS: Glucose, Whole Blood 344 mg/dL (60-115)
[2022-02-23 04:00] VITALS: BP 137/67; PULSE 89; RESP 18; TEMP 36.8; O2SAT 98
[2022-02-23 07:14] LABS: Glucose, Whole Blood 276 mg/dL (60-115)
[2022-02-23 07:25] VITALS: BP 142/71; PULSE 81; RESP 16; TEMP 36.8; O2SAT 97
[2022-02-23] MEDS: 0.9 % Sodium Chloride Flush 3 ML SYRINGE IVFLUSH ×3 (08:00→21:32)
[2022-02-23] MEDS: Insulin Lispro 100 UNIT/ML 3 ML VIAL SUBCUT ×3 (08:00→16:23)
[2022-02-23] MEDS: lisinopriL 5 MG TABLET PO (08:00)
[2022-02-23] MEDS: PHENobarbitaL 15 MG TABLET PO (08:01)
[2022-02-23] MEDS: FLUoxetine HCl Oral Solution 20 MG/5 ML SOLUTION PO (08:01)
[2022-02-23] MEDS: Cholecalciferol (Vitamin D3) 25 MCG TABLET 50 MCG PO (08:01)
[2022-02-23] MEDS: Sucralfate Oral Suspension 1 GM/10 ML ORAL.SUSP PO ×2 (08:01→21:28)
[2022-02-23] MEDS: Folic Acid 1 MG TABLET PO (08:01)
[2022-02-23] MEDS: Thiamine HCL 100 MG TABLET PO (08:01)
[2022-02-23] MEDS: Magnesium Oxide 400 MG TABLET PO (08:01)
--- NOTE | 2022-02-23 09:19 | HO.PM.IMPN ---
Subjective Subjective Date of Service: 02/23/22 Interval History: Complaining of abdominal pain, unable to take pureed food can only drink coffee, requesting to downgrade diet to clear liquids, noted to have elevated blood sugars overnight in 400 range, no other acute issues Review of Systems MAGNETIC LOCATER no headache no dizziness CVS no chest pain, no palpitation Respiratory no cough, no shortness of breath Review of Systems: Yes all other systems are reviewed and are negative Physical Exam Vital Signs: Vital Signs: Last Vital Signs Temp 98.2 F 02/23/22 07:25 Pulse 81 02/23/22 07:25 Resp 16 02/23/22 07:25 BP 142/71 H 02/23/22 07:25 Pulse Ox 97 02/23/22 07:25 BMI result Body Mass Index 21.4 Const: Other: General awake alert, no acute distress.? Anicteric sclera Neck supple no JVD. CVS? regular rate rhythm, Respiratory lungs clear to auscultation, no respiratory distress, no wheeze, no rhonchi. Gastrointestinal abdomen soft, mild epigastric tenderness, non distended, bowel sounds audible Extremities no edema. Neuro non focal ,speech clear, no tremor Skin no rash Objective Data Active Medications Acetaminophen (Acetaminophen 325 Mg Tablet) 650 mg PO Q6H PRN PRN Reason: Pain, Mild (Pain Scale 1-3) Al Hydroxide/Mg Hydroxide (Magnesium Hydrox/Alum Hydrox 30 Ml Oral.Susp) 30 ml PO Q6H PRN PRN Reason: Dyspepsia Last Admin: 02/18/22 20:41 Dose: 30 ml Documented by: ZOË Dextrose (Dextrose 50 % 25 Gm/50 Ml Syringe) 25 gm IVPUSH Q15M PRN; Protocol PRN Reason: per Hypoglycemia Standing Ord. Fluoxetine HCl (Fluoxetine Hcl Oral Solution 20 Mg/5 Ml Solution) 20 mg PO DAILY [facility] Last Admin: 02/23/22 08:01 Dose: 20 mg Documented by: TONE Folic Acid (Folic Acid 1 Mg Tablet) 1 mg PO DAILY [facility] Last Admin: 02/23/22 08:01 Dose: 1 mg Documented by: TONE Glucose (Glucose Gel 15 Gm Gel..Gram.) 15 gm PO Q15M PRN; Protocol PRN Reason: per Hypoglycemia Standing Ord. Insulin Glargine (Insulin Glargine,Hum.Rec.Anlog 100 Unit/Ml 10 Ml Vial) 10 unit SUBCUT BEDTIME [facility] Last Admin: 02/22/22 21:09 Dose: 10 unit Documented by: KISHOR Insulin Human Lispro (Insulin Lispro 100 Unit/Ml 3 Ml Vial) 0 unit SUBCUT QIDACHS [facility]; Protocol Last Admin: 02/23/22 08:00 Dose: 8 unit Documented by: TONE Lisinopril (Lisinopril 5 Mg Tablet) 5 mg PO DAILY [facility]; Protocol Last Admin: 02/23/22 08:00 Dose: 5 mg Documented by: TONE Magnesium Oxide (Magnesium Oxide 400 Mg Tablet) 400 mg PO BID [facility] Last Admin: 02/23/22 08:01 Dose: 400 mg Documented by: TONE Omeprazole (Omeprazole 20 Mg/10 Ml Susp.Recon) 40 mg PO BID@0630,1630 [facility] Last Admin: 02/23/22 03:40 Dose: 40 mg Documented by: KISHOR Comments: pt complaining of heartburn, ok'd giving scheduled prilosec early Ondansetron HCl (Ondansetron Hcl 4 Mg/2 Ml Vial) 4 mg IVPUSH Q8H PRN PRN Reason: Nausea Pharmacy Consult (Consult Rx Perform Med Rec) 1 each MISCELLANE ONCE PRN PRN Reason: Consult order Pharmacy Consult (Consult Rx Etoh Phenob Po Dose) 1 each MISCELLANE ONCE PRN; Protocol PRN Reason: Consult order Phenobarbital (Phenobarbital 15 Mg Tablet) 15 mg PO DAILY [facility] Stop: 02/24/22 09:01 Last Admin: 02/23/22 08:01 Dose: 15 mg Documented by: TONE Sodium Chloride (0.9 % Sodium Chloride Flush 3 Ml Syringe) 3 ml IVFLUSH QSHIFT [facility] Last Admin: 02/23/22 08:00 Dose: 3 ml Documented by: TONE Sucralfate (Sucralfate Oral Suspension 1 Gm/10 Ml Oral.Susp) 1 gm PO BID [facility] Last Admin: 02/23/22 08:01 Dose: 1 gm Documented by: TONE Thiamine HCl (Thiamine Hcl 100 Mg Tablet) 100 mg PO DAILY [facility] Last Admin: 02/23/22 08:01 Dose: 100 mg Documented by: TONE Trazodone HCl (Trazodone Hcl 50 Mg Tablet) 50 mg PO BEDTIME PRN PRN Reason: sleep Last Admin: 02/22/22 21:11 Dose: 50 mg Documented by: KISHOR Vitamin D (Cholecalciferol (Vitamin D3) 25 Mcg Tablet) 50 mcg PO DAILY [facility] Last Admin: 02/23/22 08:01 Dose: 50 mcg Documented by: TONE Labs CBC & Chem 7: 02/19/22 09:00 02/19/22 09:00 Labs: Laboratory Results - last 24 hr 02/22/22 02/22/22 02/22/22 07:36 11:47 16:40 POC Glucose 289 H 320 H 287 H 02/22/22 02/22/22 02/23/22 20:25 23:22 07:07 POC Glucose 456 H* 344 H 276 H Assessment and Plan (1) Esophagitis: Status: Acute (2) Alcohol abuse: Status: Acute (3) Leukocytosis: Status: Acute (4) RONN (acute kidney injury): Status: Acute Plan 57-year-old gentleman with history of alcohol use presented to [facility] due to symptoms of nausea vomiting epigastric pain and alcohol use patient diagnosed to have acute kidney injury, lactic acidosis likely due to alcohol use and dehydration, leukocytosis, alcohol abuse with high risk for alcohol withdrawal, alcohol level 165 Dysphagia/esophageal stricture Unable to swallow due to pain with history of esophageal stricture status post prior dilatation was scheduled to undergo EGD and repeat dilatation but patient got admitted due to alcohol withdrawal and coffee-ground emesis Patient evaluated by GI Dr. Reyes, he recommend EGD at am 02/24 Continue PPI/Carafate, Ensure can. Will place on clear liquid diet/NPO after midnight. ?nausea vomiting with coffee-ground emesis and epigastric pain Likely due to alcohol use underlying gastritis/esophagitis/esophageal stricture Persistent epigastric pain , no recurrent vomiting, continue PPI and Carafate. ?alcohol abuse and high risk for withdrawal, alcohol level 165 on admission ?Continue phenobarb protocol/ care team consult, continue folic acid, thiamine normal magnesium and electrolytes Strongly recommend to abstain from alcohol ?acute kidney injury likely pre renal with GI loss creatinine normalized with IV fluid. ?lactic acidosis no evidence of DKA likely due to dehydration/ alcohol use , lactic acid normalized , DC IV fluid ?leukocytosis likely reactive WBC trended down, no complain of cough, no urinary symptoms, UA unremarkable. ?diabetes mellitus, blood sugar fluctuating, continue on diabetic diet, and insulin sliding scale dose adjusted for high BS, hold pre meal insulin, on Lantus low dose, at home takes Levemir 20 units at p.m. ?hypertension continue lisinopril , blood pressure improved and is in normal range Four beats run of V-tach 02/21 patient remained asymptomatic, magnesium 2 and potassium 4.5, patient refused labs,informed importance of following labs. ?mood disorder continue fluoxetine ?DVT prophylaxis with compression boots ?code status full code ?patient will need continued inpatient hospitalization due to dysphagia unable to keep food down, with recurrent nausea vomiting, will need EGD and esophageal dilatation scheduled for 02/24 Quality Stroke Does the patient have a stroke diagnosis?: No VTE Prior VTE?: No VTE Risk Level:: Medical - moderate - high VTE Device Contraindication: N/A - Device Ordered VTE Drug Contraindication: Treatment Not Indicated
[2022-02-23 11:36] VITALS: BP 136/72; PULSE 68; RESP 16; TEMP 37; O2SAT 99
[2022-02-23 11:37] LABS: Glucose, Whole Blood 229 mg/dL (60-115)
[2022-02-23 16:00] VITALS: BP 131/63; PULSE 81; RESP 17; TEMP 37.1; O2SAT 99
[2022-02-23 16:10] LABS: Glucose, Whole Blood 353 mg/dL (60-115)
--- NOTE | 2022-02-23 18:24 | MHC.RECOVSUP ---
Addendum entered by Gilberto Higuera 02/23/22 18:26: Met with patient and we talk Harm reduction and recovery... Original Note: \Reason for consult `Recovery support o Current location: [facility] o Identified substance use concern: Alcohol\ - Support ? Intervention: o ATS bed search started/completed/in process o MAT started or to be started o Community resources provided o Harm reduction discussion ? Plan: o Referral to [facility] o Bed search in progress to o Follow up tomorrow o Patient awaiting crisis evaluation o Patient to follow up with [facility] after discharge ? Additional information:
[2022-02-23 20:00] VITALS: BP 127/63; PULSE 77; RESP 20; TEMP 37.2; O2SAT 99
[2022-02-23 21:19] LABS: Glucose, Whole Blood 163 mg/dL (60-115)
[2022-02-23] MEDS: traZODone HCL 50 MG TABLET PO (21:29)
[2022-02-23 23:30] VITALS: PULSE 81; RESP 20
[2022-02-24] VITALS (7 sets, daily range): BP systolic 108–154; BP diastolic 56–99; PULSE 78–87; RESP 16–20; TEMP 36.6–37.2; O2SAT 98–99
[2022-02-24 07:57] LABS: Glucose, Whole Blood 304 mg/dL (60-115)
[2022-02-24] MEDS: PHENobarbitaL 15 MG TABLET PO (08:43)
[2022-02-24] MEDS: lisinopriL 5 MG TABLET PO (08:43)
[2022-02-24] MEDS: Insulin Lispro 100 UNIT/ML 3 ML VIAL SUBCUT (08:43)
[2022-02-24] MEDS: 0.9 % Sodium Chloride Flush 3 ML SYRINGE IVFLUSH (08:44)
[2022-02-24] MEDS: ondansetron HCL 4 MG/2 ML VIAL IVPUSH (08:49)
[2022-02-24 11:15] LABS: Glucose, Whole Blood 219 mg/dL (60-115)
--- NOTE | 2022-02-24 12:02 | P.CONAN_ITS ---
FORM[facility]LY [facility] Active Problems Active Problems: All Active Problems (Updated 02/20/22 @ 14:34 by Otoniel Muniz MD) Poor intravenous access (Acute) Esophagitis (Acute) Alcohol abuse (Acute) Acute upper GI bleed (Acute) Esophageal stricture (Acute) Chronic pancreatitis (Acute) Leukocytosis (Acute) Gastritis and duodenitis (Acute) Hematemesis/vomiting blood (Acute) DKA (diabetic ketoacidoses) (Acute) Acute GI bleeding (Acute) RONN (acute kidney injury) (Acute) Bacteremia (Acute) RONN (acute kidney injury) (Acute) Hypokalemia (Acute) Alcohol abuse with withdrawal (Acute) Fever (Acute) Lactic acidosis (Acute) Dysphagia (Acute) Aspiration pneumonia (Acute) Fever of unknown origin (Acute) Vitamin D deficiency (Acute) HLD (hyperlipidemia) (Acute) Esophageal stricture (Acute) Hypophosphatemia (Acute) Supraventricular tachycardia (Acute) Hypomagnesemia (Acute) Past Medical History Medical History Acute alcoholic gastritis Alcohol use disorder, severe, dependence Alcoholism Depressed Diabetes Difficult airway for intubation Esophageal stricture Fever of unknown origin Gastritis GIB (gastrointestinal bleeding) Head injury Hepatitis C HLD (hyperlipidemia) HTN (hypertension) Hypomagnesemia Hypophosphatemia Odynophagia On beta cher at home Pancreatitis Seizures Supraventricular tachycardia Type 2 diabetes mellitus Vitamin D deficiency Family History Family History Father Diabetes Family history of problems with anesthesia: No Surgical History Surgical History H/O colonoscopy History of esophagogastroduodenoscopy (EGD) History of Problems with Anesthesia: No Social History Social History Household Members: Significant Other Household Members Other:: girlfriend Cindy Egan Housing: House Are you a primary skin care technician to a significant other at home: No Do you presently have visiting nurse or other home services: No Alcohol intake: former Patient Tobacco Use Status: Never used Tobacco Second Hand Smoke Exposure: No Advance Directives Date on File: 12/12/20 service: No Current occupational status: disabled Meds Allergies Allergy/AdvReac Type Severity Reaction Status Date / Time No Known Allergies Allergy Verified 11/21/21 08:47 Active Medications: Current Medications Acetaminophen (Acetaminophen 325 Mg Tablet) 650 mg PO Q6H PRN PRN Reason: Pain, Mild (Pain Scale 1-3) Al Hydroxide/Mg Hydroxide (Magnesium Hydrox/Alum Hydrox 30 Ml Oral.Susp) 30 ml PO Q6H PRN PRN Reason: Dyspepsia Last Admin: 02/18/22 20:41 Dose: 30 ml Documented by: Dextrose (Dextrose 50 % 25 Gm/50 Ml Syringe) 25 gm IVPUSH Q15M PRN; Protocol PRN Reason: per Hypoglycemia Standing Ord. Fluoxetine HCl (Fluoxetine Hcl Oral Solution 20 Mg/5 Ml Solution) 20 mg PO DAILY [facility] Last Admin: 02/24/22 08:54 Dose: Not Given Documented by: Folic Acid (Folic Acid 1 Mg Tablet) 1 mg PO DAILY [facility] Last Admin: 02/24/22 08:54 Dose: Not Given Documented by: Glucose (Glucose Gel 15 Gm Gel..Gram.) 15 gm PO Q15M PRN; Protocol PRN Reason: per Hypoglycemia Standing Ord. Insulin Glargine (Insulin Glargine,Hum.Rec.Anlog 100 Unit/Ml 10 Ml Vial) 10 unit SUBCUT BEDTIME [facility] Last Admin: 02/23/22 21:31 Dose: Not Given Documented by: Insulin Human Lispro (Insulin Lispro 100 Unit/Ml 3 Ml Vial) 0 unit SUBCUT QIDACHS [facility]; Protocol Last Admin: 02/24/22 11:18 Dose: Not Given Documented by: Lisinopril (Lisinopril 5 Mg Tablet) 5 mg PO DAILY [facility]; Protocol Last Admin: 02/24/22 08:43 Dose: 5 mg Documented by: Magnesium Oxide (Magnesium Oxide 400 Mg Tablet) 400 mg PO BID [facility] Last Admin: 02/24/22 08:54 Dose: Not Given Documented by: Omeprazole (Omeprazole 20 Mg/10 Ml Susp.Recon) 40 mg PO BID@0630,1630 [facility] Last Admin: 02/24/22 06:11 Dose: Not Given Documented by: Ondansetron HCl (Ondansetron Hcl 4 Mg/2 Ml Vial) 4 mg IVPUSH Q8H PRN PRN Reason: Nausea Last Admin: 02/24/22 08:49 Dose: 4 mg Documented by: Pharmacy Consult (Consult Rx Perform Med Rec) 1 each MISCELLANE ONCE PRN PRN Reason: Consult order Pharmacy Consult (Consult Rx Etoh Phenob Po Dose) 1 each MISCELLANE ONCE PRN; Protocol PRN Reason: Consult order Sodium Chloride (0.9 % Sodium Chloride Flush 3 Ml Syringe) 3 ml IVFLUSH QSHIFT [facility] Last Admin: 02/24/22 08:44 Dose: 3 ml Documented by: Sucralfate (Sucralfate Oral Suspension 1 Gm/10 Ml Oral.Susp) 1 gm PO BID [facility] Last Admin: 02/24/22 08:55 Dose: Not Given Documented by: Thiamine HCl (Thiamine Hcl 100 Mg Tablet) 100 mg PO DAILY [facility] Last Admin: 02/24/22 08:55 Dose: Not Given Documented by: Trazodone HCl (Trazodone Hcl 50 Mg Tablet) 50 mg PO BEDTIME PRN PRN Reason: sleep Last Admin: 02/23/22 21:29 Dose: 50 mg Documented by: Vitamin D (Cholecalciferol (Vitamin D3) 25 Mcg Tablet) 50 mcg PO DAILY [facility] Last Admin: 02/24/22 08:54 Dose: Not Given Documented by: Home Medications Medication Instructions Recorded Confirmed Last Taken Type insulin aspart U-100 100 unit/mL 7 unit SUBCUT TID 03/19/21 02/18/22 09/07/21 History (3 mL) subcutaneous pen (Novolog Flexpen U-100 Insulin aspart) insulin detemir U-100 100 unit/mL 20 unit SUBCUT QPM 03/19/21 02/18/22 09/07/21 History (3 mL) subcutaneous pen (Levemir FlexTouch U-100 Insulin) trazodone 50 mg tablet 1 tab PO BEDTIME 03/19/21 02/18/22 09/08/21 History thiamine HCl (vitamin B1) 100 mg 1 tab PO QAM 10/22/21 02/18/22 Unknown History tablet cholecalciferol (vitamin D3) 50 1 cap PO QAM 02/18/22 02/18/22 Unknown History mcg (2,000 unit) capsule fluoxetine 20 mg/5 mL (4 mg/mL) 5 ml PO DAILY 02/18/22 02/18/22 Unknown History oral solution folic acid 1 mg tablet 1 tab PO QAM 02/18/22 02/18/22 Unknown History lisinopril 5 mg tablet 1 tab PO QAM 02/18/22 02/18/22 Unknown History magnesium oxide 400 mg (241.3 mg 1 tab PO BID 02/18/22 02/18/22 Unknown History magnesium) tablet multivitamin 1 tab PO QAM 02/18/22 02/18/22 Unknown History Exam Exam Date and Time: February 24, 2022 1202 Height,Weight and Vital Signs: Height 5 ft 7 in Weight 62 kg Last Vital Signs Temp 97.8 F 02/24/22 11:34 Pulse 87 02/24/22 11:34 Resp 16 02/24/22 11:34 BP 122/99 H 02/24/22 11:34 Pulse Ox 99 02/24/22 11:34 Pertinent Lab Results Pertinent Lab Results: Laboratory Tests 02/18/22 02/18/22 02/18/22 12:52 12:52 12:52 WBC 24.3 H RBC 5.97 H Hgb 15.0 Hct 47.0 MCV 78.7 L MCH 25.1 L MCHC 31.9 RDW 14.6 Plt Count 392 MPV 9.4 Immature Gran % (Auto) 0.7 H Neut % (Auto) 85.9 H Lymph % (Auto) 6.0 L [place] % (Auto) 7.2 Eos % (Auto) 0.0 Baso % (Auto) 0.2 Lymph # (Auto) 1.5 [place] # (Auto) 1.8 H Eos # (Auto) 0.0 Baso # (Auto) 0.0 Abs Immat Gran (auto) 0.18 H Absolute Neuts (auto) 20.9 H Absolute Nucleated RBC 0.000 Nucleated RBC % (auto) 0.0 Smear Tech's Comments VERIFIED PT 12.1 INR 1.1 VBG pH VBG pCO2 VBG pO2 VBG HCO3 VBG O2 Saturation VBG Base Excess Sodium 141 Potassium 4.3 Chloride 87 L Carbon Dioxide 26 Anion Gap 32 H BUN 54 H Creatinine 1.81 H Estim Creat Clear Calc 39.4 Estimated GFR 39 POC Glucose Random Glucose 288 H Lactic Acid Lactic Acid F/U @ 2Hr Lactic Acid F/U @ 4Hr Calcium 10.4 H Magnesium 2.0 Total Bilirubin 0.5 Direct Bilirubin 0.3 AST 29 D ALT 28 Alkaline Phosphatase 116 Total Protein 9.4 H Albumin 4.3 Lipase 8 Urine Color Urine Appearance Urine pH Ur Specific [place] Urine Protein Urine Glucose (UA) Urine Ketones Urine Blood Urine Nitrite Ur Leukocyte Esterase Urine RBC Urine WBC Ur Squamous Epith Cells Urine Bacteria Ethyl Alcohol Acetone, Qual Negative COVID-19 ([facility]) COVID-19 Clin Com 02/18/22 02/18/22 02/18/22 12:52 12:52 12:52 WBC RBC Hgb Hct MCV MCH MCHC RDW Plt Count MPV Immature Gran % (Auto) Neut % (Auto) Lymph % (Auto) [place] % (Auto) Eos % (Auto) Baso % (Auto) Lymph # (Auto) [place] # (Auto) Eos # (Auto) Baso # (Auto) Abs Immat Gran (auto) Absolute Neuts (auto) Absolute Nucleated RBC Nucleated RBC % (auto) Smear Tech's Comments PT INR VBG pH VBG pCO2 VBG pO2 VBG HCO3 VBG O2 Saturation VBG Base Excess Sodium Potassium Chloride Carbon Dioxide Anion Gap BUN Creatinine Estim Creat Clear Calc Estimated GFR POC Glucose Random Glucose Lactic Acid 9.8 H* Lactic Acid F/U @ 2Hr Lactic Acid F/U @ 4Hr Calcium Magnesium Total Bilirubin Direct Bilirubin AST ALT Alkaline Phosphatase Total Protein Albumin Lipase Urine Color Urine Appearance Urine pH Ur Specific [place] Urine Protein Urine Glucose (UA) Urine Ketones Urine Blood Urine Nitrite Ur Leukocyte Esterase Urine RBC Urine WBC Ur Squamous Epith Cells Urine Bacteria Ethyl Alcohol 165 Acetone, Qual COVID-19 ([facility]) Negative COVID-19 [employer]! See Note 02/18/22 02/18/22 02/18/22 13:00 18:04 20:03 WBC RBC Hgb Hct MCV MCH MCHC RDW Plt Count MPV Immature Gran % (Auto) Neut % (Auto) Lymph % (Auto) [place] % (Auto) Eos % (Auto) Baso % (Auto) Lymph # (Auto) [place] # (Auto) Eos # (Auto) Baso # (Auto) Abs Immat Gran (auto) Absolute Neuts (auto) Absolute Nucleated RBC Nucleated RBC % (auto) Smear Tech's Comments PT INR VBG pH 7.34 VBG pCO2 51 VBG pO2 46 VBG HCO3 28 H VBG O2 Saturation 62.0 VBG Base Excess 1.6 Sodium Potassium Chloride Carbon Dioxide Anion Gap BUN Creatinine Estim Creat Clear Calc Estimated GFR POC Glucose 273 H Random Glucose Lactic Acid Lactic Acid F/U @ 2Hr 8.4 H* Lactic Acid F/U @ 4Hr Calcium Magnesium Total Bilirubin Direct Bilirubin AST ALT Alkaline Phosphatase Total Protein Albumin Lipase Urine Color Urine Appearance Urine pH Ur Specific [place] Urine Protein Urine Glucose (UA) Urine Ketones Urine Blood Urine Nitrite Ur Leukocyte Esterase Urine RBC Urine WBC Ur Squamous Epith Cells Urine Bacteria Ethyl Alcohol Acetone, Qual COVID-19 ([facility]) COVID-19 Clin 51 Give 02/18/22 02/18/22 02/19/22 21:30 21:36 06:00 WBC RBC Hgb Hct MCV MCH MCHC RDW Plt Count MPV Immature Gran % (Auto) Neut % (Auto) Lymph % (Auto) [place] % (Auto) Eos % (Auto) Baso % (Auto) Lymph # (Auto) [place] # (Auto) Eos # (Auto) Baso # (Auto) Abs Immat Gran (auto) Absolute Neuts (auto) Absolute Nucleated RBC Nucleated RBC % (auto) Smear Tech's Comments PT INR VBG pH VBG pCO2 VBG pO2 VBG HCO3 VBG O2 Saturation VBG Base Excess Sodium Potassium Chloride Carbon Dioxide Anion Gap BUN Creatinine Estim Creat Clear Calc Estimated GFR POC Glucose 264 H Random Glucose Lactic Acid Lactic Acid F/U @ 2Hr Lactic Acid F/U @ 4Hr Cancelled Calcium Magnesium Total Bilirubin Direct Bilirubin AST ALT Alkaline Phosphatase Total Protein Albumin Lipase Urine Color YELLOW Urine Appearance CLEAR Urine pH 5.5 Ur Specific [place] >= 1.030 H Urine Protein 2+ H Urine Glucose (UA) NEG Urine Ketones 5 Urine Blood NEG Urine Nitrite NEG Ur Leukocyte Esterase NEG Urine RBC 0 Urine WBC 0 Ur Squamous Epith Cells 1+ Urine Bacteria 1+ Ethyl Alcohol Acetone, Qual COVID-19 ([facility]) COVID-19 Clin Com 02/19/22 02/19/22 02/19/22 06:55 09:00 09:00 WBC 15.5 H RBC 4.84 Hgb 12.2 L Hct 38.0 L MCV 78.5 L MCH 25.2 L MCHC 32.1 RDW 14.6 Plt Count 196 D MPV 10.3 Immature Gran % (Auto) Neut % (Auto) Lymph % (Auto) [place] % (Auto) Eos % (Auto) Baso % (Auto) Lymph # (Auto) [place] # (Auto) Eos # (Auto) Baso # (Auto) Abs Immat Gran (auto) Absolute Neuts (auto) Absolute Nucleated RBC 0.030 H Nucleated RBC % (auto) 0.2 Smear Tech's Comments PT INR VBG pH VBG pCO2 VBG pO2 VBG HCO3 VBG O2 Saturation VBG Base Excess Sodium 134 L Potassium 4.5 Chloride 96 Carbon Dioxide 26 Anion Gap 17 BUN 41 H Creatinine 0.95 Estim Creat Clear Calc 75.2 Estimated GFR > 60 POC Glucose 219 H Random Glucose 219 H Lactic Acid Lactic Acid F/U @ 2Hr Lactic Acid F/U @ 4Hr Calcium 8.3 L D Magnesium Total Bilirubin Direct Bilirubin AST ALT Alkaline Phosphatase Total Protein Albumin Lipase Urine Color Urine Appearance Urine pH Ur Specific [place] Urine Protein Urine Glucose (UA) Urine Ketones Urine Blood Urine Nitrite Ur Leukocyte Esterase Urine RBC Urine WBC Ur Squamous Epith Cells Urine Bacteria Ethyl Alcohol Acetone, Qual COVID-19 ([facility]) COVID-19 [employer]! 02/19/22 02/19/22 02/19/22 10:48 13:42 17:10 WBC RBC Hgb Hct MCV MCH MCHC RDW Plt Count MPV Immature Gran % (Auto) Neut % (Auto) Lymph % (Auto) [place] % (Auto) Eos % (Auto) Baso % (Auto) Lymph # (Auto) [place] # (Auto) Eos # (Auto) Baso # (Auto) Abs Immat Gran (auto) Absolute Neuts (auto) Absolute Nucleated RBC Nucleated RBC % (auto) Smear Tech's Comments PT INR VBG pH VBG pCO2 VBG pO2 VBG HCO3 VBG O2 Saturation VBG Base Excess Sodium Potassium Chloride Carbon Dioxide Anion Gap BUN Creatinine Estim Creat Clear Calc Estimated GFR POC Glucose 207 H 196 H 134 H Random Glucose Lactic Acid Lactic Acid F/U @ 2Hr Lactic Acid F/U @ 4Hr Calcium Magnesium Total Bilirubin Direct Bilirubin AST ALT Alkaline Phosphatase Total Protein Albumin Lipase Urine Color Urine Appearance Urine pH Ur Specific [place] Urine Protein Urine Glucose (UA) Urine Ketones Urine Blood Urine Nitrite Ur Leukocyte Esterase Urine RBC Urine WBC Ur Squamous Epith Cells Urine Bacteria Ethyl Alcohol Acetone, Qual COVID-19 ([facility]IO) COVID-19 [employer]! 02/19/22 02/19/22 02/20/22 17:38 20:09 07:04 WBC RBC Hgb Hct MCV MCH MCHC RDW Plt Count MPV Immature Gran % (Auto) Neut % (Auto) Lymph % (Auto) [place] % (Auto) Eos % (Auto) Baso % (Auto) Lymph # (Auto) [place] # (Auto) Eos # (Auto) Baso # (Auto) Abs Immat Gran (auto) Absolute Neuts (auto) Absolute Nucleated RBC Nucleated RBC % (auto) Smear Tech's Comments PT INR VBG pH VBG pCO2 VBG pO2 VBG HCO3 VBG O2 Saturation VBG Base Excess Sodium Potassium Chloride Carbon Dioxide Anion Gap BUN Creatinine Estim Creat Clear Calc Estimated GFR POC Glucose 169 H 326 H Random Glucose Lactic Acid 1.7 Lactic Acid F/U @ 2Hr Lactic Acid F/U @ 4Hr Calcium Magnesium Total Bilirubin Direct Bilirubin AST ALT Alkaline Phosphatase Total Protein Albumin Lipase Urine Color Urine Appearance Urine pH Ur Specific [place] Urine Protein Urine Glucose (UA) Urine Ketones Urine Blood Urine Nitrite Ur Leukocyte Esterase Urine RBC Urine WBC Ur Squamous Epith Cells Urine Bacteria Ethyl Alcohol Acetone, Qual COVID-19 ([facility]IO) [employer] 02/20/22 02/20/22 02/21/22 15:35 20:29 07:31 WBC RBC Hgb Hct MCV MCH MCHC RDW Plt Count MPV Immature Gran % (Auto) Neut % (Auto) Lymph % (Auto) [place] % (Auto) Eos % (Auto) Baso % (Auto) Lymph # (Auto) [place] # (Auto) Eos # (Auto) Baso # (Auto) Abs Immat Gran (auto) Absolute Neuts (auto) Absolute Nucleated RBC Nucleated RBC % (auto) Smear Tech's Comments PT INR VBG pH VBG pCO2 VBG pO2 VBG HCO3 VBG O2 Saturation VBG Base Excess Sodium Potassium Chloride Carbon Dioxide Anion Gap BUN Creatinine Estim Creat Clear Calc Estimated GFR POC Glucose 291 H 358 H* 217 H Random Glucose Lactic Acid Lactic Acid F/U @ 2Hr Lactic Acid F/U @ 4Hr Calcium Magnesium Total Bilirubin Direct Bilirubin AST ALT Alkaline Phosphatase Total Protein Albumin Lipase Urine Color Urine Appearance Urine pH Ur Specific [place] Urine Protein Urine Glucose (UA) Urine Ketones Urine Blood Urine Nitrite Ur Leukocyte Esterase Urine RBC Urine WBC Ur Squamous Epith Cells Urine Bacteria Ethyl Alcohol Acetone, Qual COVID-19 ([facility]) COVID-Virtual Paper 02/21/22 02/21/22 02/21/22 11:30 16:50 21:15 WBC RBC Hgb Hct MCV MCH MCHC RDW Plt Count MPV Immature Gran % (Auto) Neut % (Auto) Lymph % (Auto) [place] % (Auto) Eos % (Auto) Baso % (Auto) Lymph # (Auto) [place] # (Auto) Eos # (Auto) Baso # (Auto) Abs Immat Gran (auto) Absolute Neuts (auto) Absolute Nucleated RBC Nucleated RBC % (auto) Smear Tech's Comments PT INR VBG pH VBG pCO2 VBG pO2 VBG HCO3 VBG O2 Saturation VBG Base Excess Sodium Potassium Chloride Carbon Dioxide Anion Gap BUN Creatinine Estim Creat Clear Calc Estimated GFR POC Glucose 267 H 311 H 397 H* Random Glucose Lactic Acid Lactic Acid F/U @ 2Hr Lactic Acid F/U @ 4Hr Calcium Magnesium Total Bilirubin Direct Bilirubin AST ALT Alkaline Phosphatase Total Protein Albumin Lipase Urine Color Urine Appearance Urine pH Ur Specific [place] Urine Protein Urine Glucose (UA) Urine Ketones Urine Blood Urine Nitrite Ur Leukocyte Esterase Urine RBC Urine WBC Ur Squamous Epith Cells Urine Bacteria Ethyl Alcohol Acetone, Qual COVID-19 ([facility]) [employer] 02/22/22 02/22/22 02/22/22 07:36 11:47 16:40 WBC RBC Hgb Hct MCV MCH MCHC RDW Plt Count MPV Immature Gran % (Auto) Neut % (Auto) Lymph % (Auto) [place] % (Auto) Eos % (Auto) Baso % (Auto) Lymph # (Auto) [place] # (Auto) Eos # (Auto) Baso # (Auto) Abs Immat Gran (auto) Absolute Neuts (auto) Absolute Nucleated RBC Nucleated RBC % (auto) Smear Tech's Comments PT INR VBG pH VBG pCO2 VBG pO2 VBG HCO3 VBG O2 Saturation VBG Base Excess Sodium Potassium Chloride Carbon Dioxide Anion Gap BUN Creatinine Estim Creat Clear Calc Estimated GFR POC Glucose 289 H 320 H 287 H Random Glucose Lactic Acid Lactic Acid F/U @ 2Hr Lactic Acid F/U @ 4Hr Calcium Magnesium Total Bilirubin Direct Bilirubin AST ALT Alkaline Phosphatase Total Protein Albumin Lipase Urine Color Urine Appearance Urine pH Ur Specific [place] Urine Protein Urine Glucose (UA) Urine Ketones Urine Blood Urine Nitrite Ur Leukocyte Esterase Urine RBC Urine WBC Ur Squamous Epith Cells Urine Bacteria Ethyl Alcohol Acetone, Qual COVID-19 ([facility]) [employer] 02/22/22 02/22/22 02/23/22 20:25 23:22 07:07 WBC RBC Hgb Hct MCV MCH MCHC RDW Plt Count MPV Immature Gran % (Auto) Neut % (Auto) Lymph % (Auto) [place] % (Auto) Eos % (Auto) Baso % (Auto) Lymph # (Auto) [place] # (Auto) Eos # (Auto) Baso # (Auto) Abs Immat Gran (auto) Absolute Neuts (auto) Absolute Nucleated RBC Nucleated RBC % (auto) Smear Tech's Comments PT INR VBG pH VBG pCO2 VBG pO2 VBG HCO3 VBG O2 Saturation VBG Base Excess Sodium Potassium Chloride Carbon Dioxide Anion Gap BUN Creatinine Estim Creat Clear Calc Estimated GFR POC Glucose 456 H* 344 H 276 H Random Glucose Lactic Acid Lactic Acid F/U @ 2Hr Lactic Acid F/U @ 4Hr Calcium Magnesium Total Bilirubin Direct Bilirubin AST ALT Alkaline Phosphatase Total Protein Albumin Lipase Urine Color Urine Appearance Urine pH Ur Specific [place] Urine Protein Urine Glucose (UA) Urine Ketones Urine Blood Urine Nitrite Ur Leukocyte Esterase Urine RBC Urine WBC Ur Squamous Epith Cells Urine Bacteria Ethyl Alcohol Acetone, Qual COVID-19 ([facility]) [place] 02/23/22 02/23/22 02/23/22 11:32 16:07 21:16 WBC RBC Hgb Hct MCV MCH MCHC RDW Plt Count MPV Immature Gran % (Auto) Neut % (Auto) Lymph % (Auto) [place] % (Auto) Eos % (Auto) Baso % (Auto) Lymph # (Auto) [place] # (Auto) Eos # (Auto) Baso # (Auto) Abs Immat Gran (auto) Absolute Neuts (auto) Absolute Nucleated RBC Nucleated RBC % (auto) Smear Tech's Comments PT INR VBG pH VBG pCO2 VBG pO2 VBG HCO3 VBG O2 Saturation VBG Base Excess Sodium Potassium Chloride Carbon Dioxide Anion Gap BUN Creatinine Estim Creat Clear Calc Estimated GFR POC Glucose 229 H 353 H* 163 H Random Glucose Lactic Acid Lactic Acid F/U @ 2Hr Lactic Acid F/U @ 4Hr Calcium Magnesium Total Bilirubin Direct Bilirubin AST ALT Alkaline Phosphatase Total Protein Albumin Lipase Urine Color Urine Appearance Urine pH Ur Specific [place] Urine Protein Urine Glucose (UA) Urine Ketones Urine Blood Urine Nitrite Ur Leukocyte Esterase Urine RBC Urine WBC Ur Squamous Epith Cells Urine Bacteria Ethyl Alcohol Acetone, Qual COVID-19 ([facility]) [employer] 02/24/22 02/24/22 07:54 11:09 WBC RBC Hgb Hct MCV MCH MCHC RDW Plt Count MPV Immature Gran % (Auto) Neut % (Auto) Lymph % (Auto) [place] % (Auto) Eos % (Auto) Baso % (Auto) Lymph # (Auto) [place] # (Auto) Eos # (Auto) Baso # (Auto) Abs Immat Gran (auto) Absolute Neuts (auto) Absolute Nucleated RBC Nucleated RBC % (auto) Smear Tech's Comments PT INR VBG pH VBG pCO2 VBG pO2 VBG HCO3 VBG O2 Saturation VBG Base Excess Sodium Potassium Chloride Carbon Dioxide Anion Gap BUN Creatinine Estim Creat Clear Calc Estimated GFR POC Glucose 304 H 219 H Random Glucose Lactic Acid Lactic Acid F/U @ 2Hr Lactic Acid F/U @ 4Hr Calcium Magnesium Total Bilirubin Direct Bilirubin AST ALT Alkaline Phosphatase Total Protein Albumin Lipase Urine Color Urine Appearance Urine pH Ur Specific [place] Urine Protein Urine Glucose (UA) Urine Ketones Urine Blood Urine Nitrite Ur Leukocyte Esterase Urine RBC Urine WBC Ur Squamous Epith Cells Urine Bacteria Ethyl Alcohol Acetone, Qual COVID-19 ([facility]) COVID-19 Clin Com Assessment and Plan Assessment Anesthesia Assessment: Anesthesia Plan Discussed Final Anesthetic Review Family History of Problems with Anesthesia: No History of Problems with Anesthesia: No NPO: Yes ASA Class: III Final Preanesthetic Review: No Changes in Pt Med Stat, Meds/Allgs Chart Reviewed, Consent Obtained/Reviewed and Anes Risks/Benef Reviewed Patient Risk: Intermediate Procedure Risk: Low Anesthetic Plan Anesthetic Plan: MAC: Disposition: Standard PACU
--- NOTE | 2022-02-24 12:03 | MHC.SHP ---
Pre-Procedural Eval Section A Date of Service: 02/24/22 The patient is an INPATIENT: Yes The History & Physical has been completed within 30 days and I have reviewed it.: Yes Section B Chief Complaint: EOTH,NAUSEA,VOMITING Allergies: Allergies Allergy/AdvReac Type Severity Reaction Status Date / Time No Known Allergies Allergy Verified 11/21/21 08:47 Plan I have reviewed the history and physical and performed a pertinent physical examination on my patient. No changes have occurred unless specified.
--- NOTE | 2022-02-24 12:03 | PM.OP ---
Brief Operative Note Date of Service: 02/24/22 Pre-op diagnosis: dysphagia Post-op diagnosis: same Procedure: see op note Surgeon: Otoniel Muniz MD Anesthesia: MAC Was an First Coat Operator used for this Procedure?: No Estimated blood loss (mL): 0 Condition: stable Disposition: PACU
--- NOTE | 2022-02-24 12:03 | W.PM.OPN ---
Operative Note Operative Note Date of Service: 02/24/22 Narrative: Procedure Description: EGD Indication: dysphagia Anesthesia: MAC FLEXIBLE TRANSORAL UPPER GASTROINTESTINAL ENDOSCOPY UPPER ENDOSCOPY Consent: Indications for the procedure and potential complications of bleeding, perforation, reaction to medications and missed diagnosis were discussed with the patient and informed consent was obtained. Instrument: Olympus GIF H 190 J mid size upper endoscope Monitoring: Vital signs and clinical assessment, continuous EKG monitoring, Pulse oximetry, Carbon Dioxide monitoring and blood pressure monitoring were done throughout the procedure. Procedure: The patient was placed in the left lateral decubitis position and pre-procedure medications were administered and a bite block was placed. The endoscope was inserted into the mouth and advanced under direct vision to the third part of duodenum. A careful inspection was made as the upper endoscope was withdrawn including a retroflexed examination of the proximal stomach; Findings and interventions are described below. ?Esophagus: LA grade D esophagitis with slough and erosions for most of length of the esophagus. LES with friable, edematous, boggy tissue. The scope passed easily. Balloon dilation done to 12 mm at LES- no tears or bleeding noted. Proximal esophagus at UES dilated to 11 mm with ballon, no tear seen. A moderately large sliding hiatal hernia noted about 4 cm, no mass at GEJ on retroflexion. Stomach and duodenum appeared normal Impression/Findings: LA grade D esophagitis with erosion, slough and edema, probably giving him the symptoms he is feeling, the scope actually passed easily with minimal resistance. I did not dilate beyond 12 mm due to the inflammation. hiatal hernia PLAN: cont with soft diet PPI BID carafate 1 g BID repeat scope in 3-4 months
--- NOTE | 2022-02-24 13:53 | P.DS_ITS ---
DS: Providers Provider Date of Service: 02/24/22 Date of admission: 02/18/22 16:32 Primary care physician: [facility] Consults: 02/20/22 13:47 Consult to Care Team Routine Comment: Reason for consultation: etoh 02/23/22 10:52 Consult to Care Team Routine Comment: Reason for consultation: etoh DS: Diagnosis Discharge Diagnosis (1) Esophagitis: Status: Acute (2) Alcohol abuse: Status: Acute (3) Leukocytosis: Status: Acute (4) RONN (acute kidney injury): Status: Acute DS: Summary Hospital Course Hospital Course: 57-year-old gentleman with history of alcohol dependence, diabetes mellitus, alcoholic gastritis, hepatitis C, hypertension hyperlipidemia presented to [facility] due to symptoms of nausea vomiting and abdominal pain as per patient he relapsed on alcohol since yesterday and started vomiting watery and? coffee ground emesis associated with abdominal pain, noted to have worsening pain with drinking alcohol in eating he also complained of generalized weakness anxiety, in the emergency room patient noted to have elevated cre atinine 1.81, magnesium of 2, WBC count 24,000 and in lactic acid level of 9.8 patient aggressively treated in the emergency room with IV fluids, Ativan and started on phenobarb protocol currently patient is somnolent but easily arousable noted to have dry heaves, complaining of epigastric pain, patient is being admitted to [facility] due to alcohol abuse with high risk for withdrawal associated with nausea vomiting and abdominal pain patient was scheduled to have upper endoscopy done by?GI. Hospital course: Patient was admitted for dysphagia/possible erosive esophagitis: Started on PPI and Carafate-seems to be improving also had EGD: Found to have erosive esophagitis-discuss GI follow-up out patiently for further management, also continue PPI and sucralfate . RONN seems to be improved with hydration. Monitor renal function and electrolyte outpatient with PCP. Leukocytosis thought to be reactive-denies any cough or any urinary complaints, WBC trending down, monitor CBC outpatient with PCP. Alcohol abuse: Treated with phenobarb, Patient was Strongly recommend to abstain alcohol. Four beats run of V-tach 02/21 patient remained asymptomatic,tele seems fine afterwrads ,moniter bmp outpatiently with pcp and further management as per pcp. Above management discussed with the patient in detail length he understand and in agreement with the above plan, time spent 50 minutes and 50% time spent on counseling. Significant findings: As above. Procedures performed: None. Treatment and response: As above. Complications: None. Time Spent with Patient Time attestation: Total time spent providing and/or coordinating discharge services: Discharge coordination time: Greater than 30 minutes Quality: Safe Use of Opioids Does Pt have an Active Cancer Diagnosis on the Problem List?: No Quality: Stroke Does the patient have a stroke diagnosis?: No Physical Exam Vital Signs: Vital Signs: Last Vital Signs Temp 99 F 02/24/22 13:41 Pulse 78 02/24/22 13:41 Resp 18 02/24/22 13:41 BP 138/63 02/24/22 13:41 Pulse Ox 99 02/24/22 13:41 BMI result Body Mass Index 21.4 Appearance: Alert.? Oriented X3.? not in distress.? Eyes: Pupils equal, round and reactive to light.? Sclera nonicteric.? ENT: Pharynx normal.? Moist mucous membranes. cvs: rrr, [id number] , no murmur res: clear to auscultation ,no rhonchii or wheezing abd: no rebound or guarding ,nt, bs present. ext pulses present , no cyanosis . neuro: axo3 , nonfocal. DS: Data Data Completed and Pending Completed studies during hospitalization [Text1]: Procedures Detoxification Services for Substance Abuse Treatment (03/05/21) Removal of Intraluminal Device from Esophagus, Via Natural or Artificial Opening Endoscopic (09/09/21) Labs on day of discharge: Laboratory Results - last 24 hr 02/23/22 02/23/22 02/24/22 16:07 21:16 07:54 POC Glucose 353 H* 163 H 304 H 02/24/22 11:09 POC Glucose 219 H Discharge Plan Discharge Patient Disposition: Home, Self-Care Discharge Diagnosis: Erosive esophagitis, RONN, alcohol abuse Referrals: [facility] [Primary Care Provider] - 1 Week Discharge Medications: New pantoprazole 40 mg tablet,delayed release (DR/EC) 40 mg PO BID Qty: 60 0RF sucralfate 100 mg/mL Suspension 1 g PO BID Qty: 60 0RF Continued (DME) blood-glucose meter [Lollipuffuch Ultra2 Meter] Kit See Rx Instructions .ROUTE .MEDSUPPLY Qty: 1 0RF Rx Instructions: As directed (DME) OneTouch Ultra Blue Test Strip Strip See Rx Instructions .ROUTE .MEDSUPPLY Qty: 100 0RF Rx Instructions: As directed (DME) lancing device with lancets [OneTouch Delica Plus Lanc Dev] Kit See Rx Instructions .ROUTE .MEDSUPPLY Qty: 1 0RF Rx Instructions: As directed (DME) lancets [OneTouch Delica Lancets] 33 gauge misc See Rx Instructions .ROUTE .MEDSUPPLY Qty: 100 0RF Rx Instructions: As directed trazodone 50 mg tablet 1 tab PO BEDTIME 0RF Levemir FlexTouch U-100 Insuln 100 unit/mL (3 mL) insulin pen 20 unit subcut QPM 0RF insulin aspart U-100 [Novolog Flexpen U-100 Insulin] 100 unit/mL (3 mL) insulin pen 7 unit subcut TID 0RF thiamine HCl (vitamin B1) 100 mg tablet 1 tab PO QAM 0RF multivitamin Tablet 1 tab PO QAM 0RF fluoxetine 20 mg/5 mL (4 mg/mL) solution 5 ml PO DAILY 0RF magnesium oxide 400 mg (241.3 mg magnesium) tablet 1 tab PO BID 0RF folic acid 1 mg tablet 1 tab PO QAM 0RF lisinopril 5 mg tablet 1 tab PO QAM 0RF cholecalciferol (vitamin D3) 50 mcg (2,000 unit) capsule 1 cap PO QAM 0RF Discharge Orders: Discharge Order (Routine); Ordered 02/24/22 Ordered By: Doroteo Palmer Diet: advance to usual diet Activity on Discharge: As tolerated Stand Alone Forms: Patient Portal Discharge page Care Plan Goals: Patient was admitted for dysphagia/possible erosive esophagitis: Started on PPI and Carafate-seems to be improving also had EGD: Found to have erosive esophagitis-discuss GI follow-up out patiently for further management, also continue PPI and sucralfate . RONN seems to be improved with hydration. Monitor renal function and electrolyte outpatient with PCP. Leukocytosis thought to be reactive-denies any cough or any urinary complaints, WBC trending down, monitor CBC outpatient with PCP. Health Concerns: As above. Plan of Treatment: As above. Assessment: As above.
--- NOTE | 2022-02-24 15:02 | MHC.CM.PN ---
Addendum entered by Evei Santiago RN 02/24/22 15:36: CM CALLED [employer] AND THEY REPORTED IT WILL BE ABOUT 45MIN TO PICK PT UP, NSG AWARE. Original Note: PT MEDICALLY CLEARED FOR D/C HOME SELF-CARE, CM MET W/PT VIA SPECIAL POPULATION PARAPROFESSIONAL, PT REPORTS HE NEEDS A RIDE HOME AND D/T LATE HOUR PT WILL BE GIVEN TAXI VOUCHER, PT ALSO REPORTS POULTRY INSEMINATOR HAS GIVEN HIM INFORMATION ON OBTAINING A SURGICAL AIDES TEACHER.
== END 2022-02-24 15:59 | disposition home or self-care (01) | DRG 469 ==
LOC: HO.ED 16:09 → HO.EDOVER 16:40 → HO.IMC 02-19 06:53
PROVIDERS: Emergency Medicine; Internal Medicine Gastroenterology; Admitting Provider Hospitalist; Emergency Provider Emergency Medicine; Visit Provider Internal Medicine
PROC: 0D738ZZ Dilation of Lower Esophagus, Via Natural or Artificial Opening Endoscopic (ICD-10-PCS; principal; 2022-02-24 15:40)
DX: N17.9 Acute kidney failure, unspecified (principal); K22.11 Ulcer of esophagus with bleeding; I47.2 Ventricular tachycardia; E87.2 Acidosis; K22.2 Esophageal obstruction; D72.829 Elevated white blood cell count, unspecified; E11.9 Type 2 diabetes mellitus without complications; F10.20 Alcohol dependence, uncomplicated; I10 Essential (primary) hypertension; Y90.6 Blood alcohol level of 120-199 mg/100 ml; K46.9 Unspecified abdominal hernia without obstruction or gangrene; Z20.822 Contact with and (suspected) exposure to COVID-19; Z86.19 Personal history of other infectious and parasitic diseases; Z79.4 Long term (current) use of insulin; Z79.899 Other long term (current) drug therapy
CPT/HCPCS: 36410; 36415; 80048; 80076; 81001; 82009; 82077; 82803; 82947; 83605; 83690; 83735; 85025; 85027; 85610; 87635; 92610; 93005; 96361; 96365; 96366; 96372; 96375; 99285; 99291; C1726; J2060; J2405; J3411; J3475

== ENCOUNTER 2022-06-13 11:56 | Emergency (ER) | payer MEDICAID, SELFPAY ==
[2022-06-13 11:58] VITALS: BP 145/84; PULSE 90; RESP 16; TEMP 36.8; O2SAT 98; BMI 21.2
[2022-06-13 14:14] VITALS: BP 133/82; PULSE 79; RESP 18; TEMP 35.7; O2SAT 99
--- NOTE | 2022-06-13 15:10 | ED.EAR ---
HPI - Ear Problem General Chief complaint: Ear Problems Stated complaint: R Ear Pain Time Seen by Provider: 06/13/22 13:04 History of Present Illness HPI Narrative: Patient complains of right ear decreased hearing similar to prior wax blockage in the past, there is no pain no fever Related Data Home Medications Medication Instructions Recorded Confirmed insulin aspart U-100 100 unit/mL 7 unit subcut TID 03/19/21 02/18/22 (3 mL) subcutaneous pen (Novolog Flexpen U-100 Insulin aspart) insulin detemir U-100 100 unit/mL 20 unit subcut QPM 03/19/21 02/18/22 (3 mL) subcutaneous pen (Levemir FlexTouch U-100 Insulin) trazodone 50 mg tablet 1 tab PO BEDTIME 03/19/21 02/18/22 thiamine HCl (vitamin B1) 100 mg 1 tab PO QAM 10/22/21 02/18/22 tablet cholecalciferol (vitamin D3) 50 1 cap PO QAM 02/18/22 02/18/22 mcg (2,000 unit) capsule fluoxetine 20 mg/5 mL (4 mg/mL) 5 ml PO DAILY 02/18/22 02/18/22 oral solution folic acid 1 mg tablet 1 tab PO QAM 02/18/22 02/18/22 lisinopril 5 mg tablet 1 tab PO QAM 02/18/22 02/18/22 magnesium oxide 400 mg (241.3 mg 1 tab PO BID 02/18/22 02/18/22 magnesium) tablet multivitamin 1 tab PO QAM 02/18/22 02/18/22 Previous Rx's Medication Instructions Recorded blood sugar diagnostic (CheckmarxTouch #100 ea 11/16/20 Ultra Blue Test Strip) blood-glucose meter (CheckmarxTouch #1 ea 11/16/20 Ultra2 Meter kit) lancets 33 gauge (CheckmarxTouch Delica #100 ea 11/16/20 Lancets) lancing device with lancets kit #1 ea 11/16/20 (DDStocksica Plus Lancing Device kit) pantoprazole 40 mg tablet,delayed 40 mg PO BID #60 tabs 02/24/22 release sucralfate 100 mg/mL oral 1 g (10 mL) PO BID #60 mL 02/24/22 suspension Allergies Allergy/AdvReac Type Severity Reaction Status Date / Time No Known Allergies Allergy Verified 11/21/21 08:47 Review of Systems Review of Systems: Positive for right ear block Negatives are no fever no chills no headache no vision changes no ear pain no discharge from ear no trauma to ear no sinus pain or congestion no sore throat no skin rash no dizziness no confusion no balance issues Yes all other systems are reviewed and are negative PMFSH Past Medical History Source: nursing notes reviewed Medical History Acute alcoholic gastritis Alcohol use disorder, severe, dependence Alcoholism Depressed Diabetes Difficult airway for intubation Esophageal stricture Fever of unknown origin Gastritis GIB (gastrointestinal bleeding) Head injury Hepatitis C HLD (hyperlipidemia) HTN (hypertension) Hypomagnesemia Hypophosphatemia Odynophagia On beta cher at home Pancreatitis Seizures Supraventricular tachycardia Type 2 diabetes mellitus Vitamin D deficiency Surgical History H/O colonoscopy History of esophagogastroduodenoscopy (EGD) Family History Family History Father Diabetes Social History Social History Household Members: Significant Other Household Members Other:: girlfriend Cindy Jignesh Housing: House Are you a primary personal care service provider to a significant other at home: No Do you presently have visiting nurse or other home services: No Alcohol intake: former Patient Tobacco Use Status: Never used Tobacco Second Hand Smoke Exposure: No Advance Directives: Yes Advance Directives on File: Yes Advance Directives Date on File: 12/12/20 service: No Current occupational status: disabled Physical Exam Vital Signs: Vital Signs: Last Vital Signs Temp 96.2 F L 06/13/22 14:14 Pulse 79 06/13/22 14:14 Resp 18 06/13/22 14:14 BP 133/82 06/13/22 14:14 Pulse Ox 99 06/13/22 14:14 O2 Del Method 06/13/22 14:14 BMI result Body Mass Index 21.2 General appearance no acute distress comfortable Ears the left ear is clear The right ear is blocked by a thick layer of wax could not see tympanic membrane Pharynx is clear neck is supple respiratory no distress skin no rash Course Course Course Narrative: The right ear was irrigated with the discharge of copious wax The right ear exam after irrigation was normal with a normal intact tympanic membrane canal was not narrowed or red, tympanic membrane was not read, normal exam Discharge Plan Discharge Clinical Impression: Impacted ear wax Patient Disposition: Home, Self-Care Additional Instructions: I irrigated out a lot of earwax After irrigation the ear looked normal with no sign of infection Try to avoid using Q-tips as they packed the wax down, you could use the peroxide liquid in her ear mixed with water to soften the wax Follow with primary doctor as needed or return here for any concerns Prescriptions: No Action (DME) blood-glucose meter [OneTouch Ultra2 Meter] Kit See Rx Instructions .ROUTE .MEDSUPPLY Qty: 1 0RF Rx Instructions: As directed (DME) OneTouch Ultra Blue Test Strip Strip See Rx Instructions .ROUTE .MEDSUPPLY Qty: 100 0RF Rx Instructions: As directed (DME) lancing device with lancets [OneTouch Delica Plus Lanc Dev] Kit See Rx Instructions .ROUTE .MEDSUPPLY Qty: 1 0RF Rx Instructions: As directed (DME) lancets [OneTouch Delica Lancets] 33 gauge misc See Rx Instructions .ROUTE .MEDSUPPLY Qty: 100 0RF Rx Instructions: As directed trazodone 50 mg tablet 1 tab PO BEDTIME Levemir FlexTouch U-100 Insuln 100 unit/mL (3 mL) insulin pen 20 unit subcut QPM insulin aspart U-100 [Novolog Flexpen U-100 Insulin] 100 unit/mL (3 mL) insulin pen 7 unit subcut TID thiamine HCl (vitamin B1) 100 mg tablet 1 tab PO QAM multivitamin Tablet 1 tab PO QAM fluoxetine 20 mg/5 mL (4 mg/mL) solution 5 ml PO DAILY magnesium oxide 400 mg (241.3 mg magnesium) tablet 1 tab PO BID folic acid 1 mg tablet 1 tab PO QAM lisinopril 5 mg tablet 1 tab PO QAM cholecalciferol (vitamin D3) 50 mcg (2,000 unit) capsule 1 cap PO QAM pantoprazole 40 mg tablet,delayed release (DR/EC) 40 mg PO BID Qty: 60 0RF sucralfate 100 mg/mL Suspension 1 g PO BID Qty: 60 0RF
== END 2022-06-13 15:27 | disposition home or self-care (01) ==
PROVIDERS: Emergency Provider Emergency Medicine; PCP Internal Medicine
DX: H61.21 Impacted cerumen, right ear (principal); H92.01 Otalgia, right ear
CPT/HCPCS: 69209; 99282

== ENCOUNTER 2022-07-07 13:42 | Outpatient (REF) | payer MEDICAID, SELFPAY ==
[2022-07-07 14:53] LABS: Alanine Aminotransferase 11 U/L (0-40); Albumin Level 3.6 g/dL (3.5-5.0); Alkaline Phosphatase 80 U/L (39-117); Anion Gap 12 (12-20); Aspartate Amino Transferase 19 U/L (5-37); Bilirubin Total 0.2 mg/dL (0.0-1.0); Blood Urea Nitrogen 24 mg/dL (9-16); Calcium 8.9 mg/dL (8.4-10.2); Carbon Dioxide 23 mmol/L (22-29); Chloride 107 mmol/L (96-108); Estimated Glomerular Filt Rate > 60; Glucose Random 243 mg/dL (60-115); Potassium 4.5 mmol/L (3.3-5.1); Sodium 137 mmol/L (135-145); Total Protein 7.6 g/dL (6.5-8.0)
== END 2022-07-07 13:43 | disposition home or self-care (01) ==
LOC: HO.LAB 13:42
PROVIDERS: PCP Registered Nurse; Visit Provider Internal Medicine Gastroenterology
DX: K75.81 Nonalcoholic steatohepatitis (NASH) (principal)
CPT/HCPCS: 36415; 80053

== ENCOUNTER 2023-04-22 07:45 | Day surgery (SDC) | payer MEDICAID, SELFPAY ==
[2022-12-09 13:33] VITALS: BMI 20.5
[2023-04-22 08:20] VITALS: BP 125/77; PULSE 79; RESP 18; TEMP 36.4; O2SAT 99
[2023-04-22 08:23] LABS: Glucose, Whole Blood 161 mg/dL (60-115)
--- NOTE | 2023-04-22 09:35 | P.HPSUR_ITS ---
Documented by User: Otoniel Muniz MD 04/22/23 09:54 Pre-Procedural Eval Section A Date of Service: 04/22/23 Section B Chief Complaint: dysphagia Relevant Family History (Specify if Yes): No Relevant Social History: Other (specify) (hx of alcohol and drug use) Present Medications: see Short Stay Collaborative assessment Medical History: Significant History (Acute alcoholic gastritis Alcohol use disorder, severe, dependence Alcoholism Depressed Diabetes Difficult airway for intubation Esophageal stricture Fever of unknown origin Gastritis GIB (gastrointestinal bleeding) Head injury Hepatitis C HLD (hyperlipidemia) HTN (hypertension) Hypomagnesemia Hypop) History of Previous Operations: Relevant previous surgery/procedure and date(s) (H/O colonoscopy History of esophagogastroduodenoscopy (EGD)) Allergies: Allergies Allergy/AdvReac Type Severity Reaction Status Date / Time No Known Allergies Allergy Verified 11/21/21 08:47 Review of Systems Sugical H&P ROS: Negative: Constitution, Cardiovascular, Respiratory, Neurolog ical, Psychiatric, Hem-Onc, Allergic/Immunologic, Gastrointestinal, Genitourinary, Musculoskeletal, Integumentary, Endocrine and Eyes/Ears/Nose/Throat Exam Surgical H&P Exam: Normal: HEENT, Normal: Heart, Normal: Lungs, Normal: Extremities, Normal: Abdomen, Normal: Skin and Normal: Neurological Plan Diagnosis/Plan: Unchanged I have reviewed the history and physical and performed a pertinent physical examination on my patient. No changes have occurred unless specified. Time Spent With Patient Time: Total time managing care of this patient today ____ minutes. Documented by User: Esther Anderson MD 04/22/23 09:41 Pre-Procedural Eval Section A Date of Service: 04/22/23 Section B Chief Complaint: dysphagia
--- NOTE | 2023-04-22 09:41 | P.CONAN_ITS ---
HPI - Anesthesia Eval Consult details Narrative: for upper GI and balloon dilatation. pt stayes sober from etoh one year [facility] Active Problems Active Problems: All Active Problems Leukocytosis (Acute) Gastritis and duodenitis (Acute) Hematemesis/vomiting blood (Acute) DKA (diabetic ketoacidoses) (Acute) Acute GI bleeding (Acute) RONN (acute kidney injury) (Acute) Bacteremia (Acute) RONN (acute kidney injury) (Acute) Hypokalemia (Acute) Alcohol abuse with withdrawal (Acute) Fever (Acute) Lactic acidosis (Acute) Dysphagia (Acute) Aspiration pneumonia (Acute) Chronic pancreatitis (Acute) Esophageal stricture (Acute) Alcohol abuse (Acute) Acute upper GI bleed (Acute) Esophagitis (Acute) Poor intravenous access (Acute) Abdominal pain (Acute) Fever of unknown origin (Acute) Vitamin D deficiency (Acute) HLD (hyperlipidemia) (Acute) Esophageal stricture (Acute) Hypophosphatemia (Acute) Supraventricular tachycardia (Acute) Hypomagnesemia (Acute) Past Medical History Medical History Acute alcoholic gastritis Alcohol use disorder, severe, dependence Alcoholism Depressed Diabetes Difficult airway for intubation Esophageal stricture Fever of unknown origin Gastritis GIB (gastrointestinal bleeding) Head injury Hepatitis C HLD (hyperlipidemia) HTN (hypertension) Hypomagnesemia Hypophosphatemia Odynophagia On beta cher at home Pancreatitis Seizures Supraventricular tachycardia Type 2 diabetes mellitus Vitamin D deficiency Family History Family History Father Diabetes Family history of problems with anesthesia: No Surgical History Surgical History H/O colonoscopy History of esophagogastroduodenoscopy (EGD) History of Problems with Anesthesia: No Social History Social History Household Members: Significant Other Household Members Other:: girlfriend Cindy Egan Housing: House Housing Other:: a room Are you a primary care transition mgr to a significant other at home: No Do you presently have visiting nurse or other home services: No Alcohol intake: former Patient Tobacco Use Status: Never used Tobacco Second Hand Smoke Exposure: No Have you been hit, kicked, punched, or otherwise hurt by someone within the past year? If so, by whom?: No Are you DNR?: No Advance Directives: No Advance Directives Information Provided: Yes Advance Directives Date on File: 12/12/20 Recently lost weight without trying: Yes How much weight loss: 2-13 pounds Eating poorly because of decreased appetite: Yes Nutrition screen score: 4 Nutrition Risks: Poor intake 0-25% >4 days Poor oral hygiene: No service: No Current occupational status: disabled Meds Allergies Allergy/AdvReac Type Severity Reaction Status Date / Time No Known Allergies Allergy Verified 11/21/21 08:47 Home Medications Medication Instructions Recorded Confirmed Last Taken Type insulin aspart U-100 100 unit/mL 7 unit subcut TID 03/19/21 02/18/22 09/07/21 History (3 mL) subcutaneous pen (Novolog FlexPen U-100 Insulin aspart) insulin detemir U-100 100 unit/mL 20 unit subcut QPM 03/19/21 02/18/22 09/07/21 History (3 mL) subcutaneous pen (Levemir FlexTouch U-100 Insulin) trazodone 50 mg tablet 1 tab PO BEDTIME 03/19/21 02/18/22 09/08/21 History thiamine HCl (vitamin B1) 100 mg 1 tab PO QAM 10/22/21 02/18/22 Unknown History tablet cholecalciferol (vitamin D3) 50 1 cap PO QAM 02/18/22 02/18/22 Unknown History mcg (2,000 unit) capsule fluoxetine 20 mg/5 mL (4 mg/mL) 5 ml PO DAILY 02/18/22 02/18/22 Unknown History oral solution folic acid 1 mg tablet 1 tab PO QAM 02/18/22 02/18/22 Unknown History lisinopril 5 mg tablet 1 tab PO QAM 02/18/22 02/18/22 Unknown History magnesium oxide 400 mg (241.3 mg 1 tab PO BID 02/18/22 02/18/22 Unknown History magnesium) tablet multivitamin 1 tab PO QAM 02/18/22 02/18/22 Unknown History Exam Exam Date and Time: April 22, 2023 0941 Height,Weight and Vital Signs: Height 5 ft 8 in Weight 61.235 kg Last Vital Signs Temp 97.5 F 04/22/23 08:20 Pulse 79 04/22/23 08:20 Resp 18 04/22/23 08:20 BP 125/77 04/22/23 08:20 Pulse Ox 99 04/22/23 08:20 O2 Del Method Room Air 04/22/23 08:20 Pertinent Lab Results Pertinent Lab Results: Laboratory Tests 04/22/23 08:19 POC Glucose 161 H Airway Mallampati Class: II TM Dist: >3cm Neck ROM: Full Loose/Missing/Broken Teeth: Yes and Lower (missing lower front and back teeth) Heart: rrr Lungs: cta Assessment and Plan Assessment Anesthesia Assessment: Anesthesia Plan Discussed and Chart Reviewed Final Anesthetic Review Family History of Problems with Anesthesia: No History of Problems with Anesthesia: No ASA Class: III Final Preanesthetic Review: No Changes in Pt Med Stat, Meds/Allgs Chart Reviewed, Consent Obtained/Reviewed and Anes Risks/Benef Reviewed Patient Risk: Intermediate Procedure Risk: Low Anesthetic Plan Anesthetic Plan: MAC: Disposition: Standard PACU
--- NOTE | 2023-04-22 09:55 | P.OP_ITS ---
Operative Note Operative Note Date of Service: 04/22/23 Narrative: Procedure Description: EGD Indication: dysphagia Anesthesia: MAC FLEXIBLE TRANSORAL UPPER GASTROINTESTINAL ENDOSCOPY UPPER ENDOSCOPY Consent: Indications for the procedure and potential complications of bleeding, perforation, reaction to medications and missed diagnosis were discussed with the patient and informed consent was obtained. Instrument: Olympus GIF H 190 J mid size upper endoscope Monitoring: Vital signs and clinical assessment, continuous EKG monitoring, Pulse oximetry, Carbon Dioxide monitoring and blood pressure monitoring were done throughout the procedure. Procedure: The patient was placed in the left lateral decubitis position and pre-procedure medications were administered and a bite block was placed. The endoscope was inserted into the mouth and advanced under direct vision to the third part of duodenum. A careful inspection was made as the upper endoscope was withdrawn including a retroflexed examination of the proximal stomach; Findings and interventions are described below. Findings: Larynx:normal Esophagus: GE junction at 38 cm, diaphragm hiatus at 42 cm, consistent with 4 cm hiatal hernia. There was a tight schatzki ring and unable to pass the scope, balloon dilation done to 13 mm with heme and superficial tears noted. Bogginess and erythema noted at GEJ, bx taken as well as from distal and proximal eso phagus. using a sclero needle 40 mg of kenalog was injected into the stricture. Stomach: Patchy gastric erythema with atrophy. Biopsies were obtained. Grade 2 flap valve on retroflexed examination of the cardia. Duodenum: Normal bulb and descending duodenum, Intervention: Biopsies as noted above, balloon dilation and kenalog injection Impression/Findings: stricture, schatzki ring esophagitis hiatal hernia gastritis PLAN: resend PPI, urged on compliance avoid alcohol and nsaids repeat EGD in about 6 weeks
[2023-04-22 10:01] VITALS: BP 139/75; PULSE 91; RESP 16; TEMP 36.3; O2SAT 100
[2023-04-22] MEDS: Mag&Al/Sim/Diphenhyd/Lidocaine 10 ML ORAL.SUSP PO (10:14)
[2023-04-22] MEDS: Triamcinolone Acetonide 40 MG/ML VIAL IM (10:15)
[2023-04-22 10:16] VITALS: BP 147/74; PULSE 81; RESP 16; O2SAT 99
[2023-04-22 10:31] VITALS: BP 147/79; PULSE 80; RESP 16; TEMP 36.9; O2SAT 99
== END 2023-04-22 11:05 | disposition home or self-care (01) ==
PROVIDERS: PCP Registered Nurse; Visit Provider Internal Medicine Gastroenterology
PROC: (CPT 43249; principal; 2023-04-22 09:20)
DX: R13.10 Dysphagia, unspecified (principal); K22.2 Esophageal obstruction; K29.50 Unspecified chronic gastritis without bleeding; R10.9 Unspecified abdominal pain; K44.9 Diaphragmatic hernia without obstruction or gangrene; K20.80 Other esophagitis without bleeding; I10 Essential (primary) hypertension; E78.5 Hyperlipidemia, unspecified; B19.21 Unspecified viral hepatitis C with hepatic coma; E83.42 Hypomagnesemia; E83.39 Other disorders of phosphorus metabolism; R50.9 Fever, unspecified; F10.21 Alcohol dependence, in remission; F32.0 Major depressive disorder, single episode, mild; E11.9 Type 2 diabetes mellitus without complications; Z79.4 Long term (current) use of insulin; Z79.899 Other long term (current) drug therapy
CPT/HCPCS: 43249; 43239; 43236; 82947; 88305; 88342; C1726; J3301